=== PATIENT | male | born 1970 | race Caucasian/White ===

== ENCOUNTER 2017-09-14 15:01 | Emergency (ER) | payer OTHER ==
[2017-09-14 15:34] VITALS: BP 133/90; PULSE 74; TEMP 97; BMI 32.5
--- NOTE | 2017-09-14 16:27 | PDOC ---
Attending Attestation - Resident Resident Name: Randall oGff - ED Attending Attestation I have performed the following: I have examined & evaluated the patient, The case was reviewed & discussed with the resident, I agree w/resident's findings & plan - HPI HPI: 09/14/17 16:23 47y/o M h/o severe MR with trach/PEG, bedbound/wheelchair presents from facility after he slipped out of his wheelchair, unwitnessed. No noted trauma, brought for evaluation. Per aide, pt is at baseline. - Physicial Exam PE: 09/14/17 16:25 VSS alert lying in stretcher, baseline nonverbal, trach, peg on full trauma review, no abrasion/ecchymosis/laceration no acute bony deformity or ttp baseline contractures - Medical Decision Making 09/14/17 16:26 47-year-old male profound MR, bedbound/wheelchair-bound presents after presumed slip and fall from wheelchair, no obvious injuries noted by aides, full trauma exam is unremarkable. Given limited history and exam, we'll perform screening trauma protocol CT of the head and C-spine Chest x-ray, pelvis x-ray Hemodynamically stable, can be discharged back to facility with aide if imaging negative.
--- NOTE | 2017-09-14 17:12 | PDOC ---
History of Present Illness - General Chief Complaint: Injury Stated Complaint: INJURY Time Seen by Provider: 09/14/17 15:23 History Source: Legal Guardian(s) - History of Present Illness Initial Comments: 09/14/17 17:05 Patient is a 47M with history of unknown genetic disorder, s/p trach and peg, non-verbal, here today after falling out of a wheelchair. His aide states that he did not have his seatbelt on his wheelchair and likely slid forward out of his wheelchair because the chair was tilted forward. Aide states that he could not have been down more than a few minutes. Patient is non-verbal at baseline, and does not have any way to communicate that he is having pain. Past History - Past Medical History Allergies/Adverse Reactions: Allergies Allergy/AdvReac Type Severity Reaction Status Date / Time Sulfa (Sulfonamide AdvReac Verified 01/29/16 13:03 Antibiotics) Home Medications: Ambulatory Orders Albuterol 0.083% Nebulizer Mami [Ventolin 0.083% Nebulizer Soln -] 1 neb NEB QID PRN 01/29/16 Baclofen 10 mg GT TID 01/29/16 Calcium Carbonate/Vitamin D3 [Oystercal-D 500 mg-400 Unit Tb] 1 each GT DAILY Cholecalciferol (Vitamin D3) [Vitamin D3] 2,000 unit GT DAILY 01/29/16 Clotrimazole [Lotrimin -] 1 applic TP BID 01/29/16 Lubiprostone [Amitiza] 24 mcg GT BID 01/29/16 Mag Carb/Aluminum Hydrox/Algin [Riginic Suspension] 360 ml GT TID 01/29/16 Magnesium Hydrox 2400MG/30Ml [Milk of Magnesia -] 30 ml GT Q8H 01/29/16 Sennosides [Senna] 17.6 mg GT DAILY 01/29/16 Simethicone 40 mg GT TID 01/29/16 levoFLOXacin [Levaquin] 750 mg PO DAILY #5 tab 02/11/16 predniSONE [Deltasone -] 10 mg GT DAILY #7 tablet 02/11/16 COPD: Yes (tracheostomy / sleep apnea) Disorders: Yes (gastrostomy) Psychiatric Problems: Yes (mental retardation) Seizures: Yes (EPILEPSY.) - Surgical History Abdominal Surgery: Yes (gastrostomy) Orthopedic Surgery: Yes (spinal fusion/hx osteoperosis left femur fx) - Suicide/Smoking/Psychosocial Hx Smoking History: Never smoked Have you smoked in the past 12 months: No Information on smoking cessation initiated: No Hx Alcohol Use: No Drug/Substance Use Hx: No Substance Use Type: None Hx Substance Use Treatment: No Review of Systems - Review of Systems Able to Perform ROS?: No (2/2 clinical condition) *Physical Exam - Vital Signs Last Vital Signs Temp Pulse Resp BP Pulse Ox 97 F L 74 20 133/90 96 09/14/17 15:21 09/14/17 15:21 09/14/17 15:21 09/14/17 15:21 09/14/17 15:21 - Physical Exam Comments: 09/14/17 17:12 GENERAL: Awake, alert, and fully oriented, in no acute distress BACK: No signs of trauma, nontender. HEAD: No signs of trauma, microcephalic EYES: PERRLA, EOMI, sclera anicteric, conjunctiva clear ENT: Auricles normal inspection, hearing grossly normal, nares patent, oropharynx clear without exudates. Moist mucosa NECK: Normal ROM, supple, no lymphadenopathy, JVD, or masses, no midline tenderness LUNGS: No distress, clear to auscultation bilaterally HEART: Regular rate and rhythm, normal S1 and S2, no murmurs, rubs or gallops, peripheral pulses normal and equal bilaterally. ABDOMEN: Soft, nontender, normoactive bowel sounds. No guarding, no rebound. No masses EXTREMITIES: No signs of trauma, chronic contractures NEUROLOGICAL: Cranial nerves II through XII grossly intact. No focal sensorimotor deficits SKIN: Warm, Dry, normal turgor, no rashes or lesions noted. ED Treatment Course - RADIOLOGY Radiology Studies Ordered: Category Date Time Status CERVICAL SPINE CT W/O CONTR [CT] Stat CT Scan 09/14/17 15:[address] WITHOUT CONTRAST [CT] Stat CT Scan 09/14/17 15:33 Ordered CXRPORT [CHEST X-RAY PORTABLE*] [RAD] Stat Radiology 09/14/17 15:33 Taken PELVIS [RAD] Stat Radiology 09/14/17 15:33 Taken Medical Decision Making - Medical Decision Making 09/14/17 17:14 Patient is 47M with unknown genetic disorder, nonverbal here today complaining of a fall. No signs of trauma, but patient unable to advocate for self. Will do CXR, pelvic x-rays, cervical spine ct and head ct. Likely discharge home. 09/14/17 18:17 CT head and c-spine show no acute changes. CXR and pelvic x-ray shows no acute fracture. No pneumonia or acute process seen. Pelvic x-ray shows moderate stool burden. Will discharge patient back to his facility. *DC/Admit/Observation/Transfer Diagnosis at time of Disposition: Fall - Discharge Dispostion Disposition: HOME Condition at time of disposition: Good Decision to Admit order: No - Referrals Referrals: Devyn Sloan Jr [Primary Care Provider] - - Patient Instructions Printed Discharge Instructions: How to Prevent Falls Additional Instructions: Please return if he has any new, worsening or concerning symptoms. Please follow up with your primary care doctor in the next week. - Post Discharge Activity
== END 2017-09-14 19:12 | disposition home or self-care (01) ==
LOC: JER 15:01
DX: Z04.8 Encounter for examination and observation for other specified reasons (principal); W05.0XXA Fall from non-moving wheelchair, initial encounter; Y93.89 Activity, other specified; Y92.118 Other place in children's home and orphanage as the place of occurrence of the external cause; F72 Severe intellectual disabilities; Z93.0 Tracheostomy status; Z93.1 Gastrostomy status; Z99.3 Dependence on wheelchair; Z74.01 Bed confinement status
CPT/HCPCS: 70450-TC; 71045-TC-FY; 72125-TC; 72170-TC-FY; 99281-25

== ENCOUNTER 2018-03-03 18:03 | Inpatient (IN) | payer OTHER ==
--- NOTE | 2018-03-03 18:10 | PDOC ---
Rapid Medical Evaluation Chief Complaint: Rectal Bleed Time Seen by Provider: 03/03/18 18:06 Medical Evaluation: Allergies Allergy/AdvReac Type Severity Reaction Status Date / Time Sulfa (Sulfonamide AdvReac Verified 01/29/16 13:03 Antibiotics) 03/03/18 18:07 Pt presents to the ED for sudden onset of guiac positive stool. From [facility] Exam: Trach'ed, wheelchair dependent Orders: Labs Pt to proceed to the ED for further evaluation Discharge Disposition - Diagnosis Rectal bleeding - Referrals - Patient Instructions - Post Discharge Activity
[2018-03-03] MEDS ORDERED: PIPERACILLIN/TAZOB 4.5 GM 4.5 GM in DEXTROSE 5%-WATER 100 ML IVPB ONE (19:49)
[2018-03-03] MEDS ORDERED: VANCOMYCIN 1 GRAM (PRE-DOCKED) 1,000 MG/250 ML BAG IVPB ONE (19:49)
--- NOTE | 2018-03-03 19:49 | PDOC ---
Attending Attestation - Resident Resident Name: Humberto La - ED Attending Attestation I have performed the following: I have examined & evaluated the patient, The case was reviewed & discussed with the resident, I agree w/resident's findings & plan, Exceptions are as noted - Critical Care Time Total Critical Care Time: 35 Critical Care Statement: The care of this patient involved high complexity decision making to prevent further life threatening deterioration of the patient 's condition and/or to evaluate & treat vital organ system(s) failure or risk of failure. - Medical Decision Making 03/03/18 19:45 I, Dr. Destiney Marroquin, DO, attest that this document has been prepared under my direction and personally reviewed by me in its entirety. I further attest, that it accurately reflects all work, treatment, procedures and medical decision -making performed by me. 03/03/18 19:45 a/p: 47yo male from [place] with chronic trach and peg with low temperature -91rectally in the ED -yellow sputum from the trach -pt unable to provide any hx -rectal fissure -will send labs, cultures, broad spectrum abx, ivf hyration -cxr, ekg 03/03/18 22:46 pt with rectal fissure and stool occult + pt with hypothermia pt with an episode of hypotension - requiring ivf hydration bolus broad spectrum abx started resident discussed the case with the ICU resident and a consult was placed to Dr. Coto resident discussed the case with [facility] who accepts pt to service <Destiney Marroquin - Last Filed: 03/03/18 22:48> - HPI HPI: 03/03/18 22:52 This is a 47 year old male with a pmhx of cerebral palsy, non verbal with chronic trach and chronic peg, who presents today from [facility] with blood in his stool and hypothermia. - Physicial Exam PE: GENERAL: Awake but nonverbal. Wheelchair bound, in no acute distress HEAD: No signs of trauma EYES: PERRLA, EOMI, sclera anicteric, conjunctiva clear ENT: +Dry mucous membranes. Auricles normal inspection, hearing grossly normal, nares patent, oropharynx clear without exudates. NECK: +Trach in place with yellow sputum in and around it. Normal ROM, supple, no lymphadenopathy, JVD, or masses LUNGS: +Coarse lung sounds on the right. No wheezes. HEART: Regular rate and rhythm, normal S1 and S2, no murmurs, rubs or gallops ABDOMEN: Soft with peg tube in the RUQ. Hypoactive bowel sounds. No guarding, no rebound. No masses. RECTAL: +Brown stool fissure at the 6:00 position. +Rectal temp 91.No active bleeding. EXTREMITIES: +Upper extremities contracted. +Lower extremities extended. No edema. No clubbing or cyanosis. No cords, erythema, or tenderness. NEUROLOGICAL: +History of cerebral palsy. Cranial nerves II through XII grossly intact. SKIN: Warm, Dry, normal turgor, no rashes or lesions noted. 03/03/18 19:57 <Nancy Tejada - Last Filed: 03/03/18 22:53> Heart Score/ECG Review - ECG Intrepretation Comment:: 03/03/18 20:37 sinus nico at 56, nl axis, nl interval, no acute st/t wave findings <Destiney Marroquin - Last Filed: 03/03/18 22:48>
--- NOTE | 2018-03-03 19:58 | PDOC ---
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 The patient is nonverbal and no history can be obtained from the patient. Per the aide, he was in his normal state of health today. Throughout the day, his aides noted that he had a positive guaic. He was also noted to have a temperature of 93F. The patient cannot verbalize any complaints but his aide denies any cough or recent illness. Past History - Past Medical History Allergies/Adverse Reactions: Allergies Allergy/AdvReac Type Severity Reaction Status Date / Time Sulfa (Sulfonamide AdvReac Verified 03/04/18 01:01 Antibiotics) Home Medications: Ambulatory Orders Albuterol 0.083% Nebulizer Mami [Ventolin 0.083% Nebulizer Soln -] 1 neb NEB QID PRN 01/29/16 Baclofen 10 mg GT TID 01/29/16 Calcium Carbonate/Vitamin D3 [Oystercal-D 500 mg-400 Unit Tb] 1 each GT DAILY Cholecalciferol (Vitamin D3) [Vitamin D3] 2,000 unit GT DAILY 01/29/16 Clotrimazole [Lotrimin -] 1 applic TP BID 01/29/16 Lubiprostone [Amitiza] 24 mcg GT BID 01/29/16 Mag Carb/Aluminum Hydrox/Algin [Riginic Suspension] 360 ml GT TID 01/29/16 Magnesium Hydrox 2400MG/30Ml [Milk of Magnesia -] 30 ml GT Q8H 01/29/16 Sennosides [Senna] 17.6 mg GT DAILY 01/29/16 Simethicone 40 mg GT TID 01/29/16 levoFLOXacin [Levaquin] 750 mg PO DAILY #5 tab 02/11/16 predniSONE [Deltasone -] 10 mg GT DAILY #7 tablet 02/11/16 COPD: Yes (tracheostomy / sleep apnea) Disorders: Yes (gastrostomy) Psychiatric Problems: Yes (mental retardation) Seizures: Yes (EPILEPSY.) - Surgical History Abdominal Surgery: Yes (gastrostomy) Orthopedic Surgery: Yes (spinal fusion/hx osteoperosis left femur fx) - Immunization History Immunization Up to Date: Yes - Suicide/Smoking/Psychosocial Hx Smoking History: Never smoked Have you smoked in the past 12 months: No Hx Alcohol Use: No Drug/Substance Use Hx: No Substance Use Type: None Hx Substance Use Treatment: No Review of Systems - Review of Systems Able to Perform ROS?: No (nonverbal) Is the patient limited [place] proficient: No *Physical Exam - Vital Signs Last Vital Signs Temp Pulse Resp BP Pulse Ox 98.5 F 59 L 16 109/51 L 98 03/03/18 18:07 03/03/18 18:07 03/03/18 18:07 03/03/18 18:07 03/03/18 18:07 - Physical Exam Comments: 03/04/18 00:39 GENERAL: Well developed, well nourished. Nonverbal, contracted throughout body. No acute distress. HEENT: Normocephalic, atraumatic. Hearing grossly normal. Moist mucous membranes. PERRLA, EOMI. No conjunctival pallor. Sclera are non-icteric. NECK: Supple. Trached with white sputum at end of trach. CARDIOVASCULAR: Regular rate and rhythm. No murmurs, rubs, or gallops. PULMONARY: No evidence of respiratory distress. L sided coarse breath sounds. ABDOMINAL: Soft. Non-tender. Non-distended. No rebound or guarding. RECTAL: Anal fissure noted, no grossly bloody stool noted on rectal exam. Rectal tone normal. MUSCULOSKELETAL: Contracted throughout pt's body. EXTREMITIES: No cyanosis. No clubbing. No edema. No calf tenderness or swelling. SKIN: Warm and dry. Normal capillary refill. No rashes. No jaundice. NEUROLOGICAL: Cranial nerves 2-12 grossly intact. Nonverbal. PSYCHIATRIC: Noncooperative. Sporadic eye contact. Heart Score/ECG Review #1 ECG reviewed & interpreted by me at: 20:25 General ECG Interpretation: Normal Intervals Compared to previous ECG there are: Changes noted 03/04/18 01:38 NSR vent rate 60 MI 180 QRS 82 QTc 436 No STD or MARGY T wave flattening noted in anteroseptal leads; changed from prior in 2016 ED Treatment Course - LABORATORY CBC & Chemistry Diagram: 03/03/18 19:47 03/03/18 19:47 - RADIOLOGY Radiology Studies Ordered: Category Date Time Status CHEST X-RAY PORTABLE* [RAD] Stat Radiology 03/03/18 19:40 Ordered Medical Decision Making - Medical Decision Making 03/03/18 19:57 The patient is a 47M with a PMH of severe MR who presents to the ER hypothermic with a positive guaic from [facility] [place]. Stool occult "trace" in our facility. Likely 2/2 anal fissure noted on PE. However, pt is hypothermic to 91F on arrival. The patient was initially normoxic and normotensive. However, during our initial assessment, the patient became bradycardic and hypotensive. Septic protocol is being followed. Pt given resuscitative fluids and BP returned to normal. However, bradycardia persisted to low 40's. Pt placed on monitor and abx started. Will monitor closely. 03/04/18 01:45 CBC shows low WBC. Normal Hgb. CMP shows no change from prior. Trop negative. Lactate negative. CXR difficult to read due to arm placement over anterior L chest. Due to pt's persistent bradycardia and hypothermia, it is a presumed infection. Urine negative. Case endorsed to Dr. East for admission under Dr. Perry. *DC/Admit/Observation/Transfer Diagnosis at time of Disposition: Rectal bleeding - Referrals - Patient Instructions - Post Discharge Activity
[2018-03-03 19:59] LABS: VENOUS PC02 59.4 mmHg (38-52); VENOUS PH 7.39 (7.32-7.42); VENOUS PO2 50.9 mmHg (28-48)
[2018-03-03 20:02] LABS: BASO % 0.5 % (0-2.0); EOS % 3.1 % (0-4.5); HEMATOCRIT 37.6 % (35.4-49); HEMOGLOBIN 12.6 GM/dL (11.7-16.9); LYMPH % 36.8 % (8-40); MCH 31.9 pg (25.7-33.7); MCHC 33.6 g/dl (32.0-35.9); MEAN CELL VOLUME 94.8 fl (80-96); MEAN PLT VOLUME 10.8 fl (7.5-11.1); MONO % 7.2 % (3.8-10.2); NEUT % 52.4 % (42.8-82.8); PLATELET COUNT 144 K/MM3 (134-434); RBC 3.97 M/mm3 (4.00-5.60); RDW 17.1 % (11.9-15.9); WHITE BLOOD COUNT 3.4 K/mm3 (4.0-10.0)
[2018-03-03 20:32] LABS: ALBUMIN 3.1 g/dl (3.4-5.0); ALK PHOS 195 U/L (45-117); ANION GAP 6 MMOL/L (8-16); BILIRUBIN,TOTAL 0.3 mg/dL (0.2-1); BLOOD UREA NITROGEN 24 mg/dL (7-18); CALCIUM 8.9 mg/dL (8.5-10.1); CHLORIDE 99 mmol/L (98-107); CO2 36 mmol/L (21-32); CREATININE 0.5 mg/dL (0.55-1.3); GLUCOSE,RANDOM 55 mg/dL (74-106); POTASSIUM 3.8 mmol/L (3.5-5.1); SGOT/AST 76 U/L (15-37); SGPT/ALT 90 U/L (13-61); SODIUM 140 mmol/L (136-145)
[2018-03-03 20:37] LABS: PROTHROMBIN TIME (PATIENT) 11.8 SEC (9.7-13.0)
[2018-03-03] MEDS ORDERED: SODIUM CHLORIDE 0.9% 1000 ML INFUS.BAG IV ONE ×2 (20:37→21:19)
[2018-03-03] MEDS ORDERED: PIPERACILLIN/TAZOB 4.5 GM 4.5 GM/100 ML BAG IVPB ONE (22:16)
[2018-03-03] MEDS ORDERED: PANTOPRAZOLE SODIUM 40 MG VIAL IVPUSH ONE (23:24)
--- NOTE | 2018-03-03 23:41 | HP ---
CHIEF COMPLAINT: rectal blood and hypothermia PCP: Dr Sloan ([facility]) HISTORY OF PRESENT ILLNESS: Pt is a 47 with a PMHx of profound MR, microcephalus , congenital quadriplegia, seizure disorder, optic n atrophy, encephalic cyst, kyphoscoliosis, sleep apnea, osteoporosis, dermatitis, recurrent tracheitis, undescended testicle, hypothermia, bilateral renal stones,with trach/PEG, bedbound/wheelchair, nonverbal, brought in from [place] for hypothermia and BRBPR this am. The am nurse at [facility] reported that the patient had normal well formed stool this am then BRBPR was noted. At [facility], the stool was tested and found positive for occult blood. Pt usually has one well formed bowel movement daily. No recent diarrhea, but intermittent semi-formed stools. No foul smelling stools, last antibiotic use was 3 months ago, last admission was 6 months ago for respiratory infection at [facility]. Pt had a hx of sigmoidoscopy with chronic constipation and disimpaction ( 2014) by Dr Garrison , no hx of PUD or previous GI bleeds No recent history of nasal congestion or fevers, (patient's Aide by the bedside only provided paper documentation and reports patient does not use home oxygen, is trached, opens eyes when awake at baseline but has contracted limbs he cannot fully extend. Aide reported that while in the ED, she noted diaper was stained with blood. 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 Pt is up to date on immunizations. When I saw the pt in the Ed, the nasal cannular was off him, but patient was sating at 100% (pt on vent collar), although aide said she was told he was initially hypoxic on presentation, requiring nasal cannular. Patient was reported to have come in with relatively stable vitals 98.5 which dropped to per ED-91 (rectal), BP from 109/51-80/50 (in ED), HR- 59 initally said to have dropped to 40s. Manual vitals repeated by ny-HR-56 (pt runs in 50s at baseline), 100/60, rectal temp-94.1, and was sating up to 100% Pt appeared to be at his baseline vitals except for the leucopenia ER course was notable for: (1) CXR, poor film -L hand occluding chest film) (2) traciar katygger,Vanc/zosyn (3) 2L-NS, vanc/zosyn (for presumed sepsis with hypothermia, hypotension, leucopenia ane bradycardia) Recent Travel: PAST MEDICAL HISTORY: PAST SURGICAL HISTORY: Social History: Smoking: Alcohol: Drugs: Family History: Allergies Sulfa (Sulfonamide Antibiotics) Adverse Reaction (Verified 01/29/16 13:03) HOME MEDICATIONS: Home Medications Medication Instructions Recorded Albuterol 0.083% Nebulizer Mami 1 neb NEB QID PRN 01/29/16 [Ventolin 0.083% Nebulizer Soln -] Baclofen 10 mg GT TID 01/29/16 Calcium Carbonate/Vitamin D3 1 each GT DAILY 01/29/16 [Oystercal-D 500 mg-400 Unit Tb] Cholecalciferol (Vitamin D3) 2,000 unit GT DAILY 01/29/16 [Vitamin D3] Clotrimazole [Lotrimin -] 1 applic TP BID 01/29/16 Lubiprostone [Amitiza] 24 mcg GT BID 01/29/16 Mag Carb/Aluminum Hydrox/Algin 360 ml GT TID 01/29/16 [Riginic Suspension] Magnesium Hydrox 2400MG/30Ml [Milk 30 ml GT Q8H 01/29/16 of Magnesia -] Sennosides [Senna] 17.6 mg GT DAILY 01/29/16 Simethicone 40 mg GT TID 01/29/16 levoFLOXacin [Levaquin] 750 mg PO DAILY #5 tab 02/11/16 predniSONE [Deltasone -] 10 mg GT DAILY #7 tablet 02/11/16 REVIEW OF SYSTEMS No other symptoms per [facility] staff PHYSICAL EXAMINATION Vital Signs - 24 hr 03/03/18 18:07 Temperature 98.5 F Pulse Rate 59 L Respiratory 16 Rate Blood Pressure 109/51 L O2 Sat by Pulse 98 Oximetry (%) GENERAL: Somnolent, opens eyes to pain, non verbal at baseline HEAD: Normal with no signs of trauma. EYES: Pupils equal, round and reactive to light, EARS, NOSE, THROAT: Nasal cannular in place.Dry mucous membranes. NECK: Tracheostomy collar in place with humidified air LUNGS:Rhonchi HEART: Regular rate and rhythm, normal S1 and S2 without murmur, rub or gallop. ABDOMEN: Mildly Distended, firm,reduced bowel sounds, palpable liver TIFFANY: Initially, stool smeared rectum, with pasty-liquidy stool. Enlarged firm prostate withfirm to hard stool in anal verge. Gloved finger with brownish stool stained with bright red blood. Anal fissure seen at 6 o'clock oozing blood : Undescended R testicle, enlarged L testicle, firm, non erythematous, no blood or pus from urethral meatus, hamilton draining clear urine MUSCULOSKELETAL: Normal range of motion at all joints. No bony deformities or tenderness. No CVA tenderness. UPPER EXTREMITIES: Contracted and, abducted and flexed at elbow bilaterally LOWER EXTREMITIES: 2+ pulses, warm, well-perfused.Contracted. No peripheral edema. NEUROLOGICAL: Hypertonia with limb contraction PSYCHIATRIC: Unable to assess Laboratory Results - last 24 hr 03/03/18 03/03/18 03/03/18 19:47 19:47 19:47 WBC 3.4 L RBC 3.97 L Hgb 12.6 Hct 37.6 MCV 94.8 MCH 31.9 MCHC 33.6 RDW 17.1 H Plt Count 144 D MPV 10.8 D Absolute Neuts (auto) 1.8 Neutrophils % 52.4 D Lymphocytes % 36.8 Monocytes % 7.2 Eosinophils % 3.1 Basophils % 0.5 Nucleated RBC % 0 PT with INR 11.80 INR 1.00 PTT (Actin FS) VBG pH POC VBG pCO2 POC VBG pO2 Mixed VBG HCO3 Sodium 140 Potassium 3.8 Chloride 99 Carbon Dioxide 36 H Anion Gap 6 L BUN 24 H Creatinine 0.5 L Creat Clearance w eGFR > 60 Random Glucose 55 L Lactic Acid Calcium 8.9 Total Bilirubin 0.3 AST 76 H ALT 90 H Alkaline Phosphatase 195 H Troponin I < 0.02 Total Protein 8.0 Albumin 3.1 L Stool Occult Blood Blood Type Antibody Screen 03/03/18 03/03/18 03/03/18 19:47 19:47 19:47 WBC RBC Hgb Hct MCV MCH MCHC RDW Plt Count MPV Absolute Neuts (auto) Neutrophils % Lymphocytes % Monocytes % Eosinophils % Basophils % Nucleated RBC % PT with INR INR PTT (Actin FS) 41.4 H VBG pH 7.39 POC VBG pCO2 59.4 H POC VBG pO2 50.9 H Mixed VBG HCO3 35.3 H Sodium Potassium Chloride Carbon Dioxide Anion Gap BUN Creatinine Creat Clearance w eGFR Random Glucose Lactic Acid Calcium Total Bilirubin AST ALT Alkaline Phosphatase Troponin I Total Protein Albumin Stool Occult Blood Blood Type A POSITIVE Antibody Screen Negative 03/03/18 03/03/18 03/03/18 19:47 19:49 21:50 WBC RBC Hgb Hct MCV MCH MCHC RDW Plt Count MPV Absolute Neuts (auto) Neutrophils % Lymphocytes % Monocytes % Eosinophils % Basophils % Nucleated RBC % PT with INR INR PTT (Actin FS) VBG pH POC VBG pCO2 POC VBG pO2 Mixed VBG HCO3 Sodium Potassium Chloride Carbon Dioxide Anion Gap BUN Creatinine Creat Clearance w eGFR Random Glucose Lactic Acid 0.7 Calcium Total Bilirubin AST ALT Alkaline Phosphatase Troponin I Cancelled Total Protein Albumin Stool Occult Blood Trace Blood Type Antibody Screen Ambulatory Orders Albuterol 0.083% Nebulizer Mami [Ventolin 0.083% Nebulizer Soln -] 1 neb NEB QID PRN 01/29/16 Baclofen 10 mg GT TID 01/29/16 Calcium Carbonate/Vitamin D3 [Oystercal-D 500 mg-400 Unit Tb] 2 tab GT HS Cholecalciferol (Vitamin D3) [Vitamin D3] 2,000 unit GT HS 01/29/16 Lubiprostone [Amitiza] 24 mcg GT BID 01/29/16 Mag Carb/Aluminum Hydrox/Algin [Riginic Suspension] 5 ml GT TID 01/29/16 Magnesium Hydrox 2400MG/30Ml [Milk of Magnesia -] 30 ml GT HS 01/29/16 Sennosides [Senna] 10 ml GT DAILY 01/29/16 Simethicone 40 mg GT TID 01/29/16 Bisacodyl Suppository [Dulcolax Suppository -] 10 mg RC ASDIR PRN 03/04/18 Waterproof-3/Dha/Epa/Fish Oil [Fish Oil 1,600 mg/5 ml Liquid] 1,000 mg GT BID Scopolamine [Transderm-Scop] 1 patch.72h TD ASDIR 03/04/18 Current Medications Albuterol Sulfate (Ventolin 0.083% Nebulizer Soln -) 1 amp NEB Q6H PRN PRN Reason: ASTHMA Pantoprazole Sodium 80 mg/ (Sodium Chloride) 100 mls @ 10 mls/hr IVPB Q10H TARIQ Last Admin: 03/04/18 03:00 Dose: 10 mls/hr Metronidazole (Flagyl 500mg Premixed Ivpb -) 500 mg in 100 mls @ 100 mls/hr IVPB Q8H-IV TARIQ Last Admin: 03/04/18 06:03 Dose: 100 mls/hr Levofloxacin (Levaquin 750 Mg Premixed Ivpb -) 750 mg in 150 mls @ 100 mls/hr IVPB DAILY TARIQ; Protocol Last Admin: 03/04/18 07:00 Dose: 100 mls/hr Dextrose/Lactated Ringer's (D5-Lr -) 1,000 mls @ 100 mls/hr IV ASDIR TARIQ Last Admin: 03/04/18 06:04 Dose: 100 mls/hr Lidocaine HCl (Xylocaine 2% Jelly) 1 applic TP Q4H PRN PRN Reason: PAIN FROM ANAL FISSURE Scopolamine HBr (Transderm-Scop -) 1 patch TD Q3D@1000 TARIQ CTAP w/o, with GT contrast and CT chest 03/04: Addendum: The previously described right inguinal hernia May BE herniating part of the decompressed/empty urinary bladder and not a thickened small bowel loop as previously described. There is fluid in the left inguinal hernia without gross evidence of a herniating bowel loop. Correlate clinically for further evaluation. ORIGINAL REPORT Rule out colitis. Distention. Rule out sepsis. CT scan of the chest, abdomen and pelvis with oral and without intravenous contrast Coronal and sagittal reformatted images were obtained. Compared to prior chest x-ray dated 03/03/[address] scan of the abdomen pelvis dated 2014 In the chest, there is an approximately 1.6 x 1 cm spiculated nodular lesion in the superior segment of the right upper lobe. There is also focal opacity in the right lower lobe, medially measuring approximately 2.2 x 1.5 cm in transverse and AP dimension on the axial images and 2.4 cm in the craniocaudal images with an irregular, slightly spiculated margin. There is mild bilateral interstitial thickening. Mild atelectatic changes in the dependent portion of the left lower lobe. No pneumothorax or pleural effusion identified, bilaterally. Included lower neck appears unremarkable. A tracheostomy tube is present with its tip in satisfactory position. The heart is within normal limits in size. No gross enlarged mediastinal lymph nodes are identified on this noncontrast exam. The liana are slightly prominent. There is significant dextroscoliosis at the thoracolumbar junction with Seay rods extending from the upper thoracic area down to the lower lumbar spine, L5 level. In the abdomen and pelvis, there is a large amount of fecal residue in the entire colon mainly in the distal sigmoid colon down to the rectosigmoid junction where it measures approximately 10 cm in width consistent with impaction. There is suggestion of thickening of the rectosigmoid junction wall. A Hamilton catheter is present within a decompressed urinary bladder. Colon is interposed between the liver and anterior abdominal wall as well as the right hemidiaphragm. Beam hardening artifacts from dense oral contrast seen in the stomach and proximal small bowel loops are limiting evaluation of the upper abdomen. The liver and spleen appear grossly unremarkable. Gallbladder is adequately distended without gross intraluminal stones. The stomach is not distended and hence its wall cannot be evaluated. There is no evidence of small bowel obstruction. Normal-appearing right adrenal gland. Left adrenal gland was not seen. Faint tiny hyperdensities in the right kidney that are nonspecific and may represent tiny nonobstructing stones. The left kidney appears unremarkable. There is no evidence of hydroureteronephrosis, bilaterally. Nonvisualization of the appendix. No free air or free fluid in the abdomen and pelvis There is bilateral inguinal hernia with herniating bowel loops. Thickening of a small bowel loop extending into the right inguinal hernia wall. Significant dextroscoliosis of the lumbar spine with Seay rods again seen down to L5 level. 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 Nodular opacities in the right lower lobe with spiculated margin, as described above. Although the appearance are suggestive of metastatic lesions, they may represent focal infiltrates. Follow- up chest x-ray in one to 2 weeks is recommended to assess for change and complete clearing. Prominent liana on this noncontrast exam. Impaction with thickening of the rectosigmoid junction wall. Bilateral inguinal hernias with the thickening of a small bowel loop in the right lower pelvis extending into the right hernia without evidence of small bowel obstruction. Correlate clinically for further evaluation. CVL dextroscoliosis of the lower thoracic and lumbar spine with Seay rods extending from the upper thoracic spine down to L5 level. A preliminary report was forwarded by the [facility] service, [employer]. ASSESSMENT/PLAN: Pt is a 47 with a PMHx of profound MR, microcephalus, congenital quadriplegia, seizure disorder, optic n atrophy, encephalic cyst, kyphoscoliosis, sleep apnea , osteoporosis, dermatitis, recurrent tracheitis, undescended testicle, hypothermia, with trach/PEG, bedbound/wheelchair, nonverbal, brought in from [facility] for hypothermia and BRBPR this am. Rectal bleed Pt hemodynamically stable on presentation, no tachycardia Likely secondary to anal fissure, with impacted stool, hx of prior bleeds Brown Stool noted then red blood CBC Q6H, one stat Protonix drip Tele NPO LR@100 2 wide bore iv line Previous sigmoidoscopy done with disimpaction but no retroflexion done in past (no documented colonoscopies in chart) Gi- Dr Garrison- saw in past Fobt trace then positive Repeat CBC trended from 12-10s- could be dilution (received 2L) and patient lives in 10s at baseline with all cell lines appearing dilute Cont to trend CBC patient may benefit from a scope Tube feeds held Multivit supplements held for now Type and screen Hold GT antacids Consider transfusion if hemodyn unstable Monitor Anemia Seeming drop of hgb from about 12 to 10, could be dilutional vs, lower GI bleed from fissure No previous UGI bleed documented Pt with hgb usu in 10s No brisk bleeds noted on rectal exam Monitor CBC Likely stercoral colitis Seen on prelim CT report pending final report With fecal stasis and impacted stool Flagyl 500 iv tid Levoflox 750mg iv daily Pt may benefit from disimpaction, held off manual disimpaction in light of anal fissure Chronic Constipation with Fecal impaction Pt is on home simethicone, amitizia, suppositories Would require disimpaction Avoid suppositories at this time, Had sigmoidoscopy and disimpaction in past Held off stool softeners via GT at this time in light of active bleed as pt may require procedure GI consult Cont iv hydration- LR switched to D5LR@100 (Previous ECH without evidence of CHF), monitor for overload Anal fissure secondary to chronic constipation Hx of sigmoidoscopy with disimpaction in past Hold Laxatives via GT for now pending GI decision for procedure Lidocaine 2% topical For likely nifedipine to help dilate vessels pending CTAP read R/o obstruction CTAP-see results above Loose stool Likely as overflow in setting of chronic constipation' Last antibiotic use end of january, R/o c diff Follow C diff Ag and toxin Lactoferrin Hypoglycemia Pt not documented DM In setting of held feeds s/p GI bleed Initally in 50s, repeat BGM above 60 Switch fluid from LR to D5LR Q6H BGM [id number] Chronic hypoxic respiratory failure R/o acute on chronic hypoxic respiratory failure Pt with trach collar at [facility], not oxygen dependent at baseline Pt at risk for tracheobronchitis, with repeated infections Has increased risk for aspiration, currently sating in 97-100 Repeated tracheitis in past, risk for colonization CXR- unable to visualize lung thrasher clearly because of body habitus CT chest w/o ordered Follow Sputum culture flu swab Urinary Ags Cont nebs ABGs- Cont nebulizer Cont humidified air/oxygen as needed to maintain sats >90% Trach dependence Local trach care with NS as needed and stoma and collar care Frequent suctioning as needed Follow Sputum secretions Spiculated lung mass with Lung nodule Seen on CT chest, for follow up CXR in 2 weeks as recommended Pulm consult Follow Urinary antigen, at increased risk for pneumonias with mass and risk for obstruction Flu swab- neg recurrent tracheitis Pt with trach collar in ID Grew ESBL Klebsiella in past Follow sputum culture, urinary antigens Pt not septic at this time Maintain sats >90% Cont TP scopolamine Normally followed by Dr Uriostegui, consider consult, if spitum cultures positive , currently on emperical coverage with levoflox and metronidazole for likely colitis Hypothermia Pt is hypothermic at baseline . Temp at [facility] prior to presentation today-93.4 Tmax for pt at baseline usually up to 95 per staff at [facility] with warm blankets Cont dianne hugger Repeat vitals Leukopenia Could be in setting of colitis, pt does not appear septic at this time HIV/HCV ordered Could also be in this setting of likely malignancy Consider hemonc consult if still trending down Elevated TSH Previously documented TSH -4.36, Free T4-1.4, -04/07/17 (paper chart), in setting of bradycardia and hypothermia, Follow T3, FT4 May require follow up for accurate diagnosis Chronic metabolic alkalosis Pt not on diuretics, could be a part of congenital syndromes in setting of MR Urine Cl Urine Creatinine Elevated liver enzymes Chronic finding with more of alk phosphatase indicating a likely bone component May be bone related as pt is noted to have osteoporosis, CTAP unrevealing of hepatic pathology profound MR, microcephalus Pt completely dependent at baseline, [facility] aide by bedside Aspiration precautions Fall precautions Holding tube feeds at this time, pending GI evaluation congenital quadriplegia Contracted extremities Frequent turns seizure disorder Documented in patient's chart from [facility] (noted as childhood seizure post- meningitis) Pt noted not to have had another seizure since likely 06/1984 Has not been on anticonvulsives since 1994 Avoid seizure treshold lowering medications (pt placed on levaquin- monitor) optic n atrophy Pt opens eyes at baseline Is non verbal and so unable to monitor For out pt follow up encephalic cyst Pt appears at baseline at this time, no new focal neurol deficits noted Documented in physical chart, for outpt follow up kyphoscoliosis s/p surgeries Monitor sleep apnea- requiring tracheostomy ([facility]-10/01/1998) Sleep study done 1998 following episodes of cyanosis Per paper chart, pt did not tolerate CPAP and had been desating on the average to 70's and sometimes as low as 50s Cont to monitor, suction secretions PRN osteoporosis With previous fractures noted Could all be in the setting of this lung mass Pt on supplements, currently on hold pending decision for procedure dermatitis likely contact Pt recorded to have recurrent dermatitis Completed 7 days topical treatment recently with bactroban (Mar 03) Renal stones Non obstructing, noted on CTAP of 03/04/18 No evidence of hydronephrosis Has had stones in past- USS 10/02/15 (paper chart) s/p GT (Mar 1998 at [facility]) hx of dysphagia with flouroscopic evidence of aspiration per paper chart Local care Holding tube feeds at this time Holding supplements pending GI review undescended L testicle L fibrosed testicle- 08/23/14 genitalia us (paper chart), R testicle in high position then and small, now R testicle in scrotum and large Follows urology as outpatient Monitor bedbound/wheelchair, nonverbal In setting of profound MR Needs full asistance with ADLs FEN D5LR Monitor lytes replete as needed Hold tube feeds PPx Hold chemical anticoagulation in setting of GI bleed Cont protonix drip pending GI eval Dispo Tele Follow to see if pt will require a higher level of care Code status Mother's information to consent for procedures as needed in physical chart Full code Visit type - Emergency Visit Emergency Visit: Yes ED Registration Date: 03/04/18 Care time: The patient presented to the Emergency Department on the above date and was hospitalized for further evaluation of their emergent condition. - New Patient This patient is new to me today: Yes Date on this admission: 03/04/18 - Critical Care Critical Care patient: No
[2018-03-03 23:50] LABS: URINE APPEARANCE SLCLOUDY; URINE BILIRUBIN NEGATIVE (<2.0 mg/dL); URINE COLOR LTYELLOW; URINE GLUCOSE (UA) NEGATIVE (NEGATIVE); URINE KETONE NEGATIVE (NEGATIVE); URINE LEUK ESTERASE NEGATIVE (NEGATIVE); URINE NITRITE NEGATIVE (NEGATIVE); URINE PROTEIN NEGATIVE (NEGATIVE); URINE UROBILINOGEN NEGATIVE mg/dL (0.2-1.0)
--- NOTE | 2018-03-04 00:06 | CONSULT ---
Consultation: REQUESTING PROVIDER: CONSULT REQUEST: We have been asked to medically evaluate this patient for ( Possible GI bleed and hypothermia). HISTORY OF PRESENT ILLNESS: Non verbal at baseline, history obtained from aid and chart. Patient is a 47 year old male, resident of [facility], was sent to the ED for evaluation of blood in the stool. As per the aid at bed side, they noticed blood in the stool today and was also found to be hypothermic. At baseline, his temp is around 96-97 F. On arrival to the ED, he was hypothermic to 91 F rectally, after continuous dianne hugger, his temperature increased to 94 F rectally. He was also found to have anal fissure. Stool occult was positive. PAST MEDICAL HISTORY: Seizure, Microcephaly, profound mental retardation, Quadriplegia, kyphoscoliosis, sleep apnea, osteoporosis, dermatitis, recurrent tracheitis, undescended testicle, hypothermia, ALLERGIES: Sulfa PAST SURGICAL HISTORY: PEG, spinal fusion, tracheostomy SOCIAL HISTORY: Lives in [facility] Smoking/Alcohol/Drugs: No use REVIEW OF SYSTEMS: Non verbal at baseline. PHYSICAL EXAMINATION Vital Signs - 24 hr 03/03/18 18:07 Temperature 98.5 F Pulse Rate 59 L Respiratory 16 Rate Blood Pressure 109/51 L O2 Sat by Pulse 98 Oximetry (%) GENERAL: Patient lying in bed, non verbal at baseline, in no acute distress. HEAD: Microcephaly. EYES: No pallor or icterus. EARS, NOSE, THROAT: Dry mucous membranes. NECK: Trache collar on oxygen LUNGS: B/L decreased breath sounds .No wheezes. No accessory muscle use. HEART: Regular rate and rhythm, normal S1 and S2 without murmur. ABDOMEN: Soft, nontender, not distended, normoactive bowel sounds, no guarding, no rebound, no masses. No hepatomegaly or splenomegaly. MUSCULOSKELETAL: Normal range of motion at all joints. No bony deformities or tenderness. No CVA tenderness. UPPER EXTREMITIES: Contracted LOWER EXTREMITIES: contracted. No peripheral edema. NEUROLOGICAL: Non verbal at baseline. SKIN: Warm, dry, normal turgor, no rashes or lesions noted. Laboratory Results - last 24 hr 03/03/18 03/03/18 03/03/18 19:47 19:47 19:47 WBC 3.4 L RBC 3.97 L Hgb 12.6 Hct 37.6 MCV 94.8 MCH 31.9 MCHC 33.6 RDW 17.1 H Plt Count 144 D MPV 10.8 D Absolute Neuts (auto) 1.8 Neutrophils % 52.4 D Lymphocytes % 36.8 Monocytes % 7.2 Eosinophils % 3.1 Basophils % 0.5 Nucleated RBC % 0 PT with INR 11.80 INR 1.00 PTT (Actin FS) VBG pH POC VBG pCO2 POC VBG pO2 Mixed VBG HCO3 Sodium 140 Potassium 3.8 Chloride 99 Carbon Dioxide 36 H Anion Gap 6 L BUN 24 H Creatinine 0.5 L Creat Clearance w eGFR > 60 Random Glucose 55 L Lactic Acid Calcium 8.9 Total Bilirubin 0.3 AST 76 H ALT 90 H Alkaline Phosphatase 195 H Troponin I < 0.02 Total Protein 8.0 Albumin 3.1 L Stool Occult Blood Blood Type Antibody Screen 03/03/18 03/03/18 03/03/18 19:47 19:47 19:47 WBC RBC Hgb Hct MCV MCH MCHC RDW Plt Count MPV Absolute Neuts (auto) Neutrophils % Lymphocytes % Monocytes % Eosinophils % Basophils % Nucleated RBC % PT with INR INR PTT (Actin FS) 41.4 H VBG pH 7.39 POC VBG pCO2 59.4 H POC VBG pO2 50.9 H Mixed VBG HCO3 35.3 H Sodium Potassium Chloride Carbon Dioxide Anion Gap BUN Creatinine Creat Clearance w eGFR Random Glucose Lactic Acid Calcium Total Bilirubin AST ALT Alkaline Phosphatase Troponin I Total Protein Albumin Stool Occult Blood Blood Type A POSITIVE Antibody Screen Negative 03/03/18 03/03/18 03/03/18 19:47 19:49 21:50 WBC RBC Hgb Hct MCV MCH MCHC RDW Plt Count MPV Absolute Neuts (auto) Neutrophils % Lymphocytes % Monocytes % Eosinophils % Basophils % Nucleated RBC % PT with INR INR PTT (Actin FS) VBG pH POC VBG pCO2 POC VBG pO2 Mixed VBG HCO3 Sodium Potassium Chloride Carbon Dioxide Anion Gap BUN Creatinine Creat Clearance w eGFR Random Glucose Lactic Acid 0.7 Calcium Total Bilirubin AST ALT Alkaline Phosphatase Troponin I Cancelled Total Protein Albumin Stool Occult Blood Trace Blood Type Antibody Screen Active Medications Generic Name Dose Route Start Last Admin Trade Name Freq PRN Reason Stop Dose Admin Pantoprazole Sodium 80 mg/ 100 mls @ 10 mls/hr 03/03/18 23:30 Sodium Chloride IVPB Q10H TARIQ 8 MG/HR Patient is a 47 year old male, resident of [facility], was sent to the ED for evaluation of blood in the stool and hypothermia. ASSESSMENT: Lower GI bleed: likely secondary to anal fissure Hypothermia: Improving with dianne hugger Neutropenia Elevated liver enzymes Was consulted for the ICU admission for possible GI bleed and hypothermia. On arrival, patient temp was 91 F rectally which improved to 94 F with dianne hugger. Patient seen and examined at bed side in the ED. GI bleed is likely from anal fissure. H/H is 12.6/37.6. Last admission it was around . Vitals at that time was 109/71 mmHg, HR 66 bpm, RR-22, Spo2-98 %. Patient is not actively bleeding, is hemodynamically stable, temperature is improving with dianne hugger. Discussed with the ED physician that patient doesn' t require ICU admission at this time. Will need tele monitoring, vitals checks Q1H, Sepsis work up, IV fluids, IV antibiotics. If patient's temperature doesn't improve or becomes hemodynamically unstable or has active GI bleed, will admit the patient in ICU at any time. Thank you for this consultative opportunity.
[2018-03-04] MEDS ORDERED: LACTATED RINGERS SOLUTION 1,000 ML/1,000 ML INFUS.BAG IV SCH (00:45)
[2018-03-04 01:54] LABS: ARTERIAL BLD GAS O2 SATURATION 99.5 % (90-98.9); ARTERIAL BLOOD GAS BASE EXCESS 4.7 meq/l (-2-2); ARTERIAL BLOOD GAS PCO2 46.4 mmHg (35-45); ARTERIAL BLOOD GAS pH 7.42 (7.35-7.45); CARBOXYHEMOGLOBIN 1.2 gm% (0.5-2.0)
[2018-03-04 02:23] LABS: HEMATOCRIT 32.2 % (35.4-49); HEMOGLOBIN 10.9 GM/dL (11.7-16.9); MCH 31.9 pg (25.7-33.7); MCHC 33.8 g/dl (32.0-35.9); MEAN CELL VOLUME 94.6 fl (80-96); MEAN PLT VOLUME 10.5 fl (7.5-11.1); PLATELET COUNT 136 K/MM3 (134-434); RBC 3.41 M/mm3 (4.00-5.60); RDW 17.1 % (11.9-15.9)
[2018-03-04] MEDS ORDERED: LIDOCAINE HCL 2% JELLY (30 ML/TUBE) TP PRN (02:35)
[2018-03-04] MEDS ORDERED: PANTOPRAZOLE SODIUM 40 MG VIAL ONE (02:36)
[2018-03-04] MEDS: PANTOPRAZOLE SODIUM 80 MG in SODIUM CHLORIDE 100 ML IVPB SCH ×2 (03:00→13:36)
[2018-03-04] MEDS ORDERED: ALBUTEROL SO4 0.083% IH SOL 2.5 MG/3 ML VIAL.NEB. NEB PRN (03:05)
[2018-03-04] MEDS ORDERED: PATIENT'S OWN MEDICATION (NON-FORMULARY) (Magnesium Hydrox 2400mg/30ml 30 ML) GT SCH (03:15)
--- NOTE | 2018-03-04 05:00 | PN ---
Teaching Attending Note Name of Resident: Rebeca East ATTENDING PHYSICIAN STATEMENT I saw and evaluated the patient. I reviewed the resident's note and discussed the case with the resident. I agree with the resident's findings and plan as documented. SUBJECTIVE: Patient is a 47 y/o patient of [facility] who has a complex PMH involving MR/CP/DD stemming from childhood/ issues, microcephaly, quadraplegia, optic N. atrophy, severe kyphoscoliosis, recurring tracheitis, recurring hypothermia (resident called home and they state that this is a repeated issue with him and they warm him PRN). He is brought in to the hospital for bright red blood per rectum x1 that was noted only once today. He cannot provide any history due to his chronic medical problems. We called the nursing facility to gain additional history. He apparently gets hypothermic at baseline and is warmed with blankets, etc. His BP is low normal at baseline as well, I am told. He is noncomunicative and bedbound at his baseline. In the ER there was initial concern for sepsis and he was covered broadly. When I saw him, given that his CXR was difficult to interpret and abdominal distention we chose to get CTs of his chest/abdomen/pelvis. Showed large fecal impaction. He does have some liquid incontinence noted around a hard stool that likely represents overflow and NOT diarrhea. CT shows fecal impaction. The stool doesn't become bloody until it is around the area of the patient's rectal fissure (noted at 6 oclock on rectal exam). Spiculated mass with associated small nodules seen on chest CT. He is trach and G-tube dependent at baseline. 10 sys ROS couldn't be done due to patient's clinical status. PMH and PSH reviewed FH couldn't be confirmed with patient Social history he is developmentally disabled and cannot communicate and is dependent on nursing for all ADLs. No smoking/drinking hx. I am told his mother is still involved with his life but we need to get all signed HCP sheets , etc. OBJECTIVE: VS, Labs, Imaging all personally reviewed Awake and alert, cannot assess if orientated, opens eyes and localizes to pain and verbal stimuli RRR s1/2 no mgr Lungs CTAB with sym expansion Mild to moderate distention with palpable liver edge and irregular densitiy near this but separate questionably representing impacted colon. +BS but reduced. G tube in place. Rectal exam with 6 oclock fissue CN2-12 intact, no FND; cannot do an involved neurological exam due to his mental status and disability Legs and arms contracted, +pulses Trachea midline without JVD Labs show CBC with initial WBC 3.4 and Hb 12 range that washed out after 2+L of IVF to 3.0 and the mid-10 range. Renal function wnl. Blood gas shows a metabolic alkalosis with respiratory compensation and the CO2 on BMP is similar to that seen on prior visits. ESR elevated at 95; CRP 9.9. FOBT done twice; once was trace + and other one was normal +. Negative flu swab and unremarkable UA. Differential on CBC was essentially unremarkable. CT scans reviewed; final reports pending but prelim shows spiculated lung mass in RLL (3x2x1) with a cluster of nodules ranging from 9mm-1.5cm in the superior RUL likely representing atypical infection vs. mets. Chronic b/l rib fractures with severe kyphoscoliosis (s/p repair). He has small nonobstructing renal stones in his R-kidney and he is found to have a 7mm R renal nodule that is too small to characterize. He also has chronic b/l hip dislocations and part of his bladder herniating into his inguinal region. His chronic medical devices were visualized in appropriate places (hamilton, g-tube, trach). ASSESSMENT AND PLAN: Mr. Tobar is brought in by EMS for BRBPR and there was initial concern of sepsis in the ER. He appears to have low-normal BPs at baseline and has been chronically hypothermic at [place] as of late per the nursing with his HR trending at his normal rate. He is chronically constipated which did predispose him to a rectal fissure which was seen on examination-this is likely the cause of the BRBPR and the drop in Hb could likely have been dilutional 2/2 2L fluids +maintenance but can involve GI to ensure. Disimpaction may be an issue with the presence of a fissue. He was distended and had irregularities palpated and there was concern for ?PNA given his chronic aspiration and the history of recurring PNAs so CTs were obtained which showed potential malignancy. For this he will need to see pulmonary medicine who can be contacted in AM. 1) BRBPR -It may be rectal fissure vs. lower GI bleeding. On exam, the stool in the rectal vault is brown until it gets to the area of the fissure when it becomes mixed with bright red. The liquidy overflow incontenance the patient has with the fissure likely made initial assessment difficult. Doubt rapid transit but due to lack of history will be safe and cover with protonix and have GI clear him. Drop in Hb washout vs. organic. Trend CBC. Monitor BM. Treat underlying fissure. Avoid AC and monitor for tachycardia. Will keep NPO off his feeds until clear to resume. -Had flex sig in the past for constipation but no retroflexion; no gross abnormalities on what was seen of his colon, though. 2) Spiculated Lung Mass with multiple nodules -Concern that this could represent malignancy/metastatic disease. Should try to obtain a complete family history. May be bronchable? Will need eval and likely further imaging. Consider full body CT vs. PET once acute issues established as stable on an inpt vs. outpt basis. 3) Acute Colitis -Seen on prelim read of CT; could be due to large amount of fecal impaction with translocation of bacteria vs. inflammatory changes due to the stool. Will empirically cover in case the drop in WBC is paradoxical. Followup CDiff and lactoferrin (was on cipro over 1 month ago). Can check stool culture as well. If workup appears negative, afebrile, etc. can likely DC tx but in this complex individual we chose to err on the side of caution. 4) Rectal Fissure -Seen on exam; Sitz bath, topical lido, topical vasodilator, stool softeners QD 5) Hypothermia -We phoned the home and spoke with nursing; he intermittently becomes hypothermic at the home and I am told that they apply blankets to warm him. We are in the process of obtaining their records, but this may represent his baseline with fluctuating hypothermia, questionably from autonomic fluctuations due to his underlying issues. We plan to go ahead and do PRN warming with hugger and monitor temp closely. 6) Hypoglycemia -50s on presentation; now 60s. Will do IV D5LR as maintenance 7) Fecal Impaction in setting of chronic constipation -Needed flex-sig in past; complicated by the fissure. As GI has been called will defer to them on management. 8) Metabolic Alkalosis with Respiratory Compensation -This has interestingly been a longstanding issue for the patient. Since 2013- 2014 he has been noted to have elevated or at least very high normal CO2 on his BMP. Doesn't appear to have ever had a workup. He has been having no surruptitious vomitting or diarrhea, he does not use diuretics. This points to a possible intrinsic issue with tubular function. Checking a fractional excretion of chloride; consider esoteric diagnosis that can likely be followed up as OP. 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 Monitor exam and UOP. 12) Bilateral hip dislocations -No new issues; in setting of osteoporosis. Continue home meds. Followup with PCP. Functionally quadraplegic. 13) Bilateral rib fractures -Chronic, monitor and tx pain PRN 14) History of developmental delay -At baseline 15) Optic N. Atrophy -Known; keep in mind with response to visual stimuli 16) S/P G-tube -Holding feeds given #1; resume when clinically appropriate. 17) Hypoalbuminemia -Check prealbumin as OP; consider nutrition consult at some juncture to optimize feeds 18) Recurring tracheitis -Known; monitor for infectious process 19) Documented History of Seizures not on AEDs -In past notes; confirmed current meds with his facility. Sz. precautions. Would be helpful to review old records. 20) Transaminitis -AST/ALT/Alk Phos chronically elevated since 2016. Monitor CMP and outpatient followup with PCP for further workup and monitoring recommended. 21) Leukopenia -Ddx is broad; could be due to intrinsic process (neoplastic, etc.) vs. infective. Monitor for infectious issues, trend CBC. Slight drop likely 2/2 washout from the IVF. Checking HIV/HCV. FENA -D5LR@100 -Monitor and replete PRN -NPO in case needs scope for dx/impaction. -Bedbound at baseline Code status unchanged from prior encounters; papers confirming HCP, etc. should be obtained from his facility.
[2018-03-04] MEDS ORDERED: MAG CARB GT SCH (06:00)
[2018-03-04] MEDS ORDERED: BACLOFEN 10 MG TABLET (FP) GT SCH (06:00)
[2018-03-04] MEDS ORDERED: SIMETHICONE 40 MG/0.6 ML BOTTLE GT SCH (06:00)
[2018-03-04] MEDS ORDERED: ALGIN GT SCH (06:00)
[2018-03-04] MEDS ORDERED: ALUMINUM HYDROX GT SCH (06:00)
[2018-03-04] MEDS ORDERED: [UNRECOGNIZED DRUG - OTHER] GT SCH (06:00)
[2018-03-04] MEDS: DEXTROSE 5%-LACTATED RINGERS 1,000 ML IV SCH (06:04)
[2018-03-04 07:03] LABS: BASO % 0.4 % (0-2.0); EOS % 2.1 % (0-4.5); HEMATOCRIT 31.3 % (35.4-49); HEMOGLOBIN 10.1 GM/dL (11.7-16.9); LYMPH % 25.1 % (8-40); MCH 30.8 pg (25.7-33.7); MCHC 32.2 g/dl (32.0-35.9); MEAN CELL VOLUME 95.7 fl (80-96); MEAN PLT VOLUME 10.2 fl (7.5-11.1); MONO % 11.3 % (3.8-10.2); NEUT % 61.1 % (42.8-82.8); PLATELET COUNT 125 K/MM3 (134-434); RBC 3.28 M/mm3 (4.00-5.60); RDW 17.1 % (11.9-15.9); WHITE BLOOD COUNT 3.8 K/mm3 (4.0-10.0)
[2018-03-04 07:11] LABS: INR 1.02 (0.83-1.09)
[2018-03-04 07:55] LABS: ALBUMIN 2.4 g/dl (3.4-5.0); ALK PHOS 143 U/L (45-117); ANION GAP 7 MMOL/L (8-16); BILIRUBIN,TOTAL 0.4 mg/dL (0.2-1); BLOOD UREA NITROGEN 20 mg/dL (7-18); CALCIUM 7.7 mg/dL (8.5-10.1); CHLORIDE 107 mmol/L (98-107); CO2 28 mmol/L (21-32); CREATININE 0.6 mg/dL (0.55-1.3); GLUCOSE,RANDOM 59 mg/dL (74-106); MAGNESIUM 3.4 mg/dL (1.8-2.4); POTASSIUM 3.4 mmol/L (3.5-5.1); SGOT/AST 53 U/L (15-37); SGPT/ALT 65 U/L (13-61); SODIUM 143 mmol/L (136-145); TOT PROT 6.1 g/dl (6.4-8.2)
--- NOTE | 2018-03-04 08:49 | EKG ---
Test Reason : Blood Pressure : / mmHG Vent. Rate : 056 BPM Atrial Rate : 056 BPM P-R Int : 180 ms QRS Dur : 082 ms QT Int : 452 ms P-R-T Axes : 010 014 023 degrees QTc Int : 436 ms POOR DATA QUALITY, INTERPRETATION MAY BE ADVERSELY AFFECTED SINUS BRADYCARDIA WHEN COMPARED WITH ECG OF 29-JAN-2016 13:19, NON-SPECIFIC CHANGE IN ST SEGMENT IN INFERIOR LEADS Confirmed by MARISELA COLES, AMBROSIO ([id number]) on 03/04/2018 8:49:17 AM Referred By: Confirmed By:AMBROSIO ANTONIO MD
[2018-03-04] MEDS ORDERED: PT OWN MED DRAWER 7, Y5N ONE ×2 (09:47→11:41)
[2018-03-04] MEDS ORDERED: SENNOSIDES 8.8 MG/5 ML BULK BOTTLE GT SCH (10:00)
[2018-03-04] MEDS ORDERED: EPA GT SCH (10:00)
[2018-03-04] MEDS ORDERED: PATIENT'S OWN MEDICATION (NON-FORMULARY) (Lubiprostone [Amitiza] 24 MCG) GT SCH (10:00)
[2018-03-04] MEDS ORDERED: CHOLECALCIFEROL (VITAMIN D3) 1,000 UNIT TABLET (FP) GT SCH (10:00)
[2018-03-04] MEDS ORDERED: FISH OIL GT SCH (10:00)
[2018-03-04] MEDS ORDERED: [UNRECOGNIZED DRUG - OTHER] GT SCH (10:00)
[2018-03-04] MEDS ORDERED: OMEGA GT SCH (10:00)
[2018-03-04] MEDS ORDERED: DHA GT SCH (10:00)
[2018-03-04] MEDS ORDERED: PATIENT'S OWN MEDICATION (NON-FORMULARY) (Calcium Carbonate/Vitamin D3 [Oystercal-D 500 Mg GT SCH (10:00)
[2018-03-04] MEDS ORDERED: ENOXAPARIN NA (PORCINE) 40 MG/0.4 ML DISP.SYRIN SQ SCH (10:00)
[2018-03-04] MEDS: SCOPOLAMINE HYDROBROMIDE 1 PATCH PATCH.TD72 TD SCH (10:21)
[2018-03-04 12:07] LABS: BASO % 0.5 % (0-2.0); EOS % 2.4 % (0-4.5); HEMOGLOBIN 10.2 GM/dL (11.7-16.9); LYMPH % 24.1 % (8-40); MCH 31.5 pg (25.7-33.7); MEAN CELL VOLUME 95.5 fl (80-96); MEAN PLT VOLUME 9.7 fl (7.5-11.1); MONO % 11.5 % (3.8-10.2); NEUT % 61.5 % (42.8-82.8); PLATELET COUNT 135 K/MM3 (134-434); RBC 3.25 M/mm3 (4.00-5.60); RDW 16.6 % (11.9-15.9); WHITE BLOOD COUNT 4.1 K/mm3 (4.0-10.0)
--- NOTE | 2018-03-04 13:15 | PN ---
Progress Note (short form) - Note Progress Note: PULMONARY CONSULTATION DICTATED 03/04/18
--- NOTE | 2018-03-04 14:54 | CON.GI ---
Consult Consult Specialty:: GI Referred by:: Dr. Rao Reason for Consultation:: Blood in stool - History of Present Illness Chief Complaint: Patient non-verbal History of Present Illness: 47M transferred from [facility] for rectal bleeding. 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 CATCHER: Yes: Seizure, Other (quadraplegia, microcephaly, profound MR) Gastrointestinal: Yes: Constipation Musculoskeletal: Yes: Paraplegia, Other (SCOLIOSIS) Additional Medical History: CP/MICROCEPHALY - Past Surgical History Additional Surgical History: Abdomnal scar of unclear etiology, G-Tube - Alcohol/Substance Use Hx Alcohol Use: No History of Substance Use: reports: None - Smoking History Smoking history: Never smoked Have you smoked in the past 12 months: No - Social History Usual Living Arrangement: Other (at [facility] in [place]) ADL: Support Services History of Recent Travel: No Home Medications - Allergies Allergies/Adverse Reactions: Allergies Allergy/AdvReac Type Severity Reaction Status Date / Time Sulfa (Sulfonamide AdvReac Verified 03/04/18 01:01 Antibiotics) - Home Medications Home Medications: Ambulatory Orders Albuterol 0.083% Nebulizer Mami [Ventolin 0.083% Nebulizer Soln -] 1 neb NEB QID PRN 01/29/16 Baclofen 10 mg GT TID 01/29/16 Calcium Carbonate/Vitamin D3 [Oystercal-D 500 mg-400 Unit Tb] 2 tab GT HS Cholecalciferol (Vitamin D3) [Vitamin D3] 2,000 unit GT HS 01/29/16 Lubiprostone [Amitiza] 24 mcg GT BID 01/29/16 Mag Carb/Aluminum Hydrox/Algin [Riginic Suspension] 5 ml GT TID 01/29/16 Magnesium Hydrox 2400MG/30Ml [Milk of Magnesia -] 30 ml GT HS 01/29/16 Sennosides [Senna] 10 ml GT DAILY 01/29/16 Simethicone 40 mg GT TID 01/29/16 Bisacodyl Suppository [Dulcolax Suppository -] 10 mg RC ASDIR PRN 03/04/18 Mobile-3/Dha/Epa/Fish Oil [Fish Oil 1,600 mg/5 ml Liquid] 1,000 mg GT BID Scopolamine [Transderm-Scop] 1 patch.72h TD ASDIR 03/04/18 Family Disease History - Family Disease History Family History: Unable to Obtain Physical Exam-GI Vital Signs: Vital Signs Temperature 96.2 F L 03/04/18 14:18 Pulse Rate 60 03/04/18 14:18 Respiratory Rate 20 03/04/18 14:18 Blood Pressure 91/53 L 03/04/18 14:18 O2 Sat by Pulse Oximetry (%) 100 03/04/18 09:00 Constitutional: Yes: Calm Eyes: No: Sclera Icterus Cardiovascular: Yes: Bradycardia Respiratory: Yes: Diminished (at bases b/l) Gastrointestinal Inspection: Yes: Scars (midline vertical surgical scar). No: Distention ...Auscultate: Yes: Normoactive Bowel Sounds ...Palpate: No: Tenderness (no grimacing upon palpation) ...Percussion: No: Tympanitic ...Rectal Exam: Yes: Other (Fecal impaction in the proximal rectum. Some stool was able to be removed manually. There was no blood) Edema: No (No LE edema) Labs: CBC, BMP 03/04/18 11:50 03/04/18 05:50 INR, PTT INR 1.02 (0.83-1.09) 03/04/18 05:50 Imaging - Results Cat Scan: Report Reviewed, Image Reviewed Problem List - Problems (1) Fecal impaction in rectum Assessment/Plan: likely leading to bleeding secondary to internal hemorrhoidal irritation. No blood noted on TIFFANY today. Anemia appears to be chronic 1. No need for PPI drip. This is not an upper GI bleed 2. Needs tap water enema followed by daily mineral oil enemas 3. MiraLAX 17g via G tube TID for 3 days followed by twice daily 3. Needs aggressive bowel care at his senior living. Care needs to extend as outpatient as well. should be checked for evolving rectal fecal impactions while residing at [place] Code(s): K56.41 - FECAL IMPACTION
--- NOTE | 2018-03-04 15:43 | PN ---
Progress Note, Physician Chief Complaint: Unable to obtain - Current Medication List Current Medications: Active Medications Albuterol Sulfate (Ventolin 0.083% Nebulizer Soln -) 1 amp NEB Q6H PRN PRN Reason: ASTHMA Metronidazole (Flagyl 500mg Premixed Ivpb -) 500 mg in 100 mls @ 100 mls/hr IVPB Q8H-IV TARIQ Last Admin: 03/04/18 10:21 Dose: 100 mls/hr Levofloxacin (Levaquin 750 Mg Premixed Ivpb -) 750 mg in 150 mls @ 100 mls/hr IVPB DAILY TARIQ; Protocol Last Admin: 03/04/18 07:00 Dose: 100 mls/hr Dextrose/Lactated Ringer's (D5-Lr -) 1,000 mls @ 100 mls/hr IV ASDIR TARIQ Last Admin: 03/04/18 06:04 Dose: 100 mls/hr Lidocaine HCl (Xylocaine 2% Jelly) 1 applic TP Q4H PRN PRN Reason: PAIN FROM ANAL FISSURE Mineral Oil (Fleet Mineral Oil Rectal Enema -) 133 ml NH DAILY TARIQ Stop: 03/07/18 17:59 Polyethylene Glycol (Miralax (For Daily Use) -) 17 gm PO TID TARIQ Stop: 03/07/18 21:59 Scopolamine HBr (Transderm-Scop -) 1 patch TD Q3D@1000 TARIQ Last Admin: 03/04/18 10:21 Dose: 1 patch - Objective Vital Signs: Vital Signs Temperature 35.7 C L 03/04/18 14:18 Pulse Rate 60 03/04/18 14:18 Respiratory Rate 20 03/04/18 14:18 Blood Pressure 91/53 L 03/04/18 14:18 O2 Sat by Pulse Oximetry (%) 100 03/04/18 09:00 Constitutional: Yes: Well Nourished, No Distress Cardiovascular: Yes: Regular Rate and Rhythm. No: Gallop, Murmur, Rub Respiratory: Yes: Regular, Rhonchi. No: CTA Bilaterally, Rales, Wheezes Gastrointestinal: Yes: Normal Bowel Sounds, Soft. No: Distention, Tenderness Extremities: Yes: WNL Edema: No Labs: CBC, BMP 03/04/18 11:50 03/04/18 05:50 INR, PTT INR 1.02 (0.83-1.09) 03/04/18 05:50 Problem List - Problems (1) Hypothermia Code(s): T68.XXXA - HYPOTHERMIA, INITIAL ENCOUNTER Qualifiers: Encounter type: initial encounter Qualified Code(s): T68.XXXA - Hypothermia , initial encounter (2) Fecal impaction in rectum Code(s): K56.41 - FECAL IMPACTION (3) Rectal bleeding Code(s): K62.5 - HEMORRHAGE OF ANUS AND RECTUM (4) Quadriplegia Code(s): G82.50 - QUADRIPLEGIA, UNSPECIFIED (5) Colitis Code(s): K52.9 - NONINFECTIVE GASTROENTERITIS AND COLITIS, UNSPECIFIED (6) Anemia Code(s): D64.9 - ANEMIA, UNSPECIFIED (7) Chronic respiratory failure with hypoxia Code(s): J96.11 - CHRONIC RESPIRATORY FAILURE WITH HYPOXIA Assessment/Plan -continue levaquin and flagyl -continue warming patient -leukopenia improving, now normal -replace K -continue IVF -appreciate GI assistance -continue holding tube feeds for the moment -re-assess, possible start tomorrow
[2018-03-04] MEDS: KCL 10 MEQ IVPB 10 MEQ/100 ML INFUS.BAG IVPB SCH ×2 (16:26→17:50)
--- NOTE | 2018-03-04 16:26 | PN ---
Progress Note (short form) - Note Progress Note: PULMONARY CONSULTATION DICTATED 03/04/18 IMP RUL/RLL OPACITIES/HYPOTHERMIA R/O PNEUMONIA,POSSIBLE MALIGNANCY R/O SEPSIS MICROCEPHALY PROFOUND MENTAL RETARDATION CONGENITAL QUADRAPLEGIA S/P TRACH/PEG HEME + STOOLS PLAN IV ABX INHALED BRONCHODILATORS TRACHEAL SUCTIONING O2 CULTURES NUTRITIONAL SUPPORT ASPIRATION PRECAUTIONS DR GORMAN Problem List - Problems (1) Rectal bleeding Code(s): K62.5 - HEMORRHAGE OF ANUS AND RECTUM (2) Chronic respiratory failure with hypoxia Code(s): J96.11 - CHRONIC RESPIRATORY FAILURE WITH HYPOXIA (3) Hypothermia Code(s): T68.XXXA - HYPOTHERMIA, INITIAL ENCOUNTER Qualifiers: Encounter type: initial encounter Qualified Code(s): T68.XXXA - Hypothermia , initial encounter (4) Increased tracheal secretions Code(s): J39.8 - OTHER SPECIFIED DISEASES OF UPPER RESPIRATORY TRACT (6) Quadriplegia Code(s): G82.50 - QUADRIPLEGIA, UNSPECIFIED (7) Respiratory distress Code(s): R06.00 - DYSPNEA, UNSPECIFIED (8) Wheezing Code(s): R06.2 - WHEEZING
--- NOTE | 2018-03-04 16:37 | CON.ID ---
Consult Consult Specialty:: infectious disease Referred by:: hospitalist Reason for Consultation:: possible pneumonia - History of Present Illness Chief Complaint: rectal bleeding History of Present Illness: 47 yo man with severe mental retardation trach, PEG, nonverb resident of [facility]- brought to ED for guaic positive stool he was noted to be hypothermic he was found to have a rectal fissure on exam ct scan abd and pelvis showed fecal impaction ct scan of chest shows 2 small nodular opacities RUL and RLL per [facility] he has chronic hypothermia last hospitalized at [facility] 6 months ago for respiratory infection - History Source History Provided By: Medical Record Limitations to Obtaining History: Clinical Condition - 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 valenzuela rods - Alcohol/Substance Use Hx Alcohol Use: No History of Substance Use: reports: None - Smoking History Smoking history: Never smoked Have you smoked in the past 12 months: No - Social History Usual Living Arrangement: Other (at [facility]) ADL: Support Services Place of : [place] History of Recent Travel: No Home Medications - Allergies Allergies/Adverse Reactions: Allergies Allergy/AdvReac Type Severity Reaction Status Date / Time Sulfa (Sulfonamide AdvReac Verified 03/04/18 01:01 Antibiotics) - Home Medications Home Medications: Ambulatory Orders Albuterol 0.083% Nebulizer Mami [Ventolin 0.083% Nebulizer Soln -] 1 neb NEB QID PRN 01/29/16 Baclofen 10 mg GT TID 01/29/16 Calcium Carbonate/Vitamin D3 [Oystercal-D 500 mg-400 Unit Tb] 2 tab GT HS Cholecalciferol (Vitamin D3) [Vitamin D3] 2,000 unit GT HS 01/29/16 Lubiprostone [Amitiza] 24 mcg GT BID 01/29/16 Mag Carb/Aluminum Hydrox/Algin [Riginic Suspension] 5 ml GT TID 01/29/16 Magnesium Hydrox 2400MG/30Ml [Milk of Magnesia -] 30 ml GT HS 01/29/16 Sennosides [Senna] 10 ml GT DAILY 01/29/16 Simethicone 40 mg GT TID 01/29/16 Bisacodyl Suppository [Dulcolax Suppository -] 10 mg RC ASDIR PRN 03/04/18 Cameron-3/Dha/Epa/Fish Oil [Fish Oil 1,600 mg/5 ml Liquid] 1,000 mg GT BID Scopolamine [Transderm-Scop] 1 patch.72h TD ASDIR 03/04/18 Family Disease History - Family Disease History Family History: Unable to Obtain Review of Systems - Review of Systems Constitutional: denies: Chills, Diaphoresis, Fever Physical Exam Vital Signs: Vital Signs Temperature 96.2 F L 03/04/18 14:18 Pulse Rate 60 03/04/18 14: Respiratory Rate 20 03/04/18 14:18 Blood Pressure 91/53 L 03/04/18 14:18 O2 Sat by Pulse Oximetry (%) 100 03/04/18 09:00 Constitutional: Yes: No Distress, Calm Eyes: Yes: Conjunctiva Clear HENT: Yes: Atraumatic, Normocephalic Neck: Yes: Other (tracheostomy) Cardiovascular: Yes: Regular Rate and Rhythm Respiratory: Yes: Regular, CTA Bilaterally, Diminished (at bases) Gastrointestinal: Yes: Normal Bowel Sounds, Soft, Other (GT) ...Rectal Exam: Yes: Deferred Renal/: Yes: Murrell Present Extremities: Yes: WNL Edema: No Labs: CBC, BMP 03/04/18 11:50 03/04/18 05:50 Laboratory Tests 03/03/18 03/04/18 22:33 05:50 AST 53 H ALT 65 H Alkaline Phosphatase 143 H Urine pH 8.0 Ur Specific [place] 1.008 L Urine Protein Negative Urine Glucose (UA) Negative Urine Ketones Negative Urine Blood Negative Urine Nitrite Negative Urine Bilirubin Negative Urine Urobilinogen Negative Ur Leukocyte Esterase Negative legionella antigen negative pneumococcal antigen negative Imaging - Results Chest X-ray: Report Reviewed Cat Scan: Report Reviewed, Image Reviewed Problem List - Problems (1) Fecal impaction in rectum Code(s): K56.41 - FECAL IMPACTION (2) Pulmonary infiltrate present on computed tomography Code(s): R91.8 - OTHER NONSPECIFIC ABNORMAL FINDING OF LUNG FIELD (3) Rectal bleeding Code(s): K62.5 - HEMORRHAGE OF ANUS AND RECTUM (4) Allergy to sulfa drugs Code(s): Z88.2 - ALLERGY STATUS TO SULFONAMIDES STATUS Assessment/Plan differential diagnosis for lung process includes infectious versus neoplastic no evidence of colitis fecal impaction with rectal fissure continue levaquin for 7 days can d/c flagyl will need repeat chest ct to f/u the lung lesions apparently is always hypothermic at baseline continue contact isolation pending repeat sputum culture- hopefully can d/c isolation d/w hospitalist
[2018-03-04] MEDS: MINERAL OIL ENEMA 133 ML ENEMA PR SCH (19:10)
--- NOTE | 2018-03-04 20:42 | CONS ---
DATE OF CONSULTATION: 03/04/2018 REFERRING PHYSICIAN: Jaylen Rao MD HISTORY: History is obtained per chart. It describes a 47-year-old white male with past medical history of mental retardation, microcephalus, congenital quadriplegia, seizure disorder, optic atrophy, encephalic cyst, kyphoscoliosis, sleep apnea, osteoporosis, dermatitis, recurrent tracheitis, undescended testicles, hypothermia, status post tracheostomy, percutaneous endoscopic gastrostomy, bed bound, wheelchair bound presently at [facility] admitted to [facility] secondary to hypothermia and bright red blood per rectum. Apparently, nurses at the [facility] noted that the patient had a normal, well-formed stool in the morning and then bright red blood was noted. Apparent, his stool was tested and found to be positive for occult blood. There was no apparent recent diarrhea, but he had intermittent semi-formed stools recently. The patient also was noted to be hypothermic at which time he was transferred to [facility] ER. In the ER, he was noted initially have a temperature of 98. Subsequent repeat was 98.4. He was transferred up to medical floor for further management. He underwent a CT scan of the chest, which revealed evidence of a 1.6-cm spiculated nodule lesion in the superior segment of the right upper lobe and also a focal opacity in the right lower lobe medially 2 cm x 2 cm x 1.5 cm. He was admitted. He was started on bronchodilators as well as antibiotic therapy. He was also noted to have increase in tracheal secretions thick yellow color. He was evaluated earlier by Dr. Stanford Ennis for consultation GI. The bleeding was secondary to internal hemorrhoidal irritation. PAST MEDICAL HISTORY: Again includes profound mental retardation, microcephalus , congenital quadriplegia, seizure disorder, optic nerve atrophy, encephalic cyst, kyphoscoliosis, sleep apnea, osteoporosis, dermatitis, recurrent tracheitis, undescended testes, tracheostomy PEG. REVIEW OF SYSTEMS; Unable to obtain. CURRENT MEDICATIONS: Include Levaquin, metronidazole, mineral oil, albuterol, lidocaine, KCl. PHYSICAL EXAMINATION: General: The patient is a well-developed male awake and congested in no acute distress. Vital Signs: Currently temperature is 96.2, blood pressure 91/53, respiratory rate is 20, O2 saturation is 100% on tracheostomy collar. HEENT: Microcephalic and atraumatic. Neck: Supple. Tracheostomy is patent. Heart: Regular S1, S2. Chest: Scattered bilateral rhonchi throughout. Abdomen: Soft. Bowel sounds are positive. Extremities: Shortened. LABORATORIES: Blood gas: PH 7.42, PCO2 of 46, PO2 of 147, bicarbonate of 30, saturation 99.5. WBC 4.1, hemoglobin 10.3, hematocrit 31 with a platelet count of 135,000. Chemistries: BUN 20, creatinine 0.6, TSH 6.9. Chest CT as noted earlier. IMPRESSION: 1. Hypothermia, rule out possible pneumonia and sepsis. 2. Nodular densities, rule out possible pneumonia, rule out possible malignancy. 3. Severe mental retardation. 4. Microcephaly. 5. History of sleep apnea status post tracheostomy, percutaneous endoscopic gastrostomy. 6. Congenital quadriplegia. 7. Seizure disorder. 8. Kyphoscoliosis. 9. Positive stool guaiacs. PLAN: Broad-spectrum antibiotics. Supplemental O2. Monitor blood pressure. Follow up chest x-rays. Obtain cultures. Nutritional support. Pulmonary toilet. Monitor hemoglobin and hematocrit, f/u chest ct outpatient ANDRÉS GORMAN M.D. IVONNE/[id number] MTDD
[2018-03-04] MEDS: ALBUTEROL SO4 2.5/IPRATROPIUM 0.5 INH SOL 3 ML VIAL.NEB. NEB SCH (21:42)
[2018-03-04] MEDS: POLYETHYLENE GLYCOL 3350 119 GM BTL PO SCH (22:27)
[2018-03-05] MEDS: POLYETHYLENE GLYCOL 3350 119 GM BTL PO SCH ×3 (05:11→22:00)
[2018-03-05 06:06] LABS: HEP A AB, IGM Negative (Negative)
[2018-03-05] MEDS: DEXTROSE 5%-LACTATED RINGERS 1,000 ML IV SCH (06:52)
[2018-03-05] MEDS: ALBUTEROL SO4 2.5/IPRATROPIUM 0.5 INH SOL 3 ML VIAL.NEB. NEB SCH ×4 (07:30→20:24)
[2018-03-05 07:46] LABS: BASO % 0.4 % (0-2.0); EOS % 3.9 % (0-4.5); HEMATOCRIT 29.9 % (35.4-49); HEMOGLOBIN 9.7 GM/dL (11.7-16.9); LYMPH % 38.7 % (8-40); MCH 30.8 pg (25.7-33.7); MCHC 32.4 g/dl (32.0-35.9); MEAN CELL VOLUME 95.2 fl (80-96); MEAN PLT VOLUME 9.6 fl (7.5-11.1); MONO % 11.7 % (3.8-10.2); NEUT % 45.3 % (42.8-82.8); PLATELET COUNT 142 K/MM3 (134-434); RBC 3.14 M/mm3 (4.00-5.60); WHITE BLOOD COUNT 3.4 K/mm3 (4.0-10.0)
[2018-03-05 08:06] LABS: ANION GAP 9 MMOL/L (8-16); BLOOD UREA NITROGEN 9 mg/dL (7-18); CHLORIDE 110 mmol/L (98-107); CO2 26 mmol/L (21-32); CREATININE 0.6 mg/dL (0.55-1.3); GLUCOSE,RANDOM 74 mg/dL (74-106); MAGNESIUM 2.5 mg/dL (1.8-2.4); PHOSPHOROUS 2.6 mg/dL (2.5-4.9); POTASSIUM 3.3 mmol/L (3.5-5.1); SODIUM 144 mmol/L (136-145)
[2018-03-05] MEDS ORDERED: PT OWN MED DRAWER 7, Y5N ONE ×2 (08:31→09:30)
[2018-03-05] MEDS: MINERAL OIL ENEMA 133 ML ENEMA PR SCH ×2 (08:58→10:08)
[2018-03-05] MEDS ORDERED: POTASSIUM CHLORIDE ORAL LIQUID 20 MEQ/15 ML PEG ONE (10:22)
--- NOTE | 2018-03-05 10:23 | PN ---
Progress Note, Physician History of Present Illness: pulmonary comfortable,-resp distress,on trach collar 35% - Current Medication List Current Medications: Active Medications Albuterol Sulfate (Ventolin 0.083% Nebulizer Soln -) 1 amp NEB Q6H PRN PRN Reason: ASTHMA Albuterol/Ipratropium (Duoneb -) 1 amp NEB RQID [facility] Last Admin: 03/05/18 07:30 Dose: 1 amp Dextrose/Lactated Ringer's (D5-Lr -) 1,000 mls @ 100 mls/hr IV ASDIR [facility] Last Admin: 03/05/18 06:52 Dose: 100 mls/hr Levofloxacin (Levaquin 500 Mg Premixed Ivpb -) 500 mg in 100 mls @ 100 mls/hr IVPB DAILY [facility]; Protocol Last Admin: 03/05/18 10:09 Dose: Not Given Lidocaine HCl (Xylocaine 2% Jelly) 1 applic TP Q4H PRN PRN Reason: PAIN FROM ANAL FISSURE Mineral Oil (Fleet Mineral Oil Rectal Enema -) 133 ml [place] DAILY [facility] Stop: 03/07/18 17:59 Last Admin: 03/05/18 10:08 Dose: Not Given Polyethylene Glycol (Miralax (For Daily Use) -) 17 gm PO TID [facility] Stop: 03/07/18 21:59 Last Admin: 03/05/18 05:11 Dose: 17 grams Scopolamine HBr (Transderm-Scop -) 1 patch TD Q3D@1000 [facility] Last Admin: 03/04/18 10:21 Dose: 1 patch - Objective Vital Signs: Vital Signs Temperature 97.5 F L 03/05/18 05:37 Pulse Rate 54 L 03/05/18 05:37 Respiratory Rate 20 03/05/18 05:37 Blood Pressure 94/56 L 03/05/18 05:37 O2 Sat by Pulse Oximetry (%) 96 03/04/18 21:00 Constitutional: Yes: Calm, Thin Eyes: Yes: WNL HENT: Yes: Other (microcephalic) Neck: Yes: Supple (trach) Cardiovascular: Yes: Regular Rate and Rhythm, S1, S2 Respiratory: Yes: Rhonchi (scattered rhonchi) Gastrointestinal: Yes: Normal Bowel Sounds, Soft Extremities: Yes: Shortened, Other (contracted) Labs: CBC, BMP 03/05/18 06:10 03/05/18 06:30 INR, PTT INR 1.02 (0.83-1.09) 03/04/18 05:50 Problem List - Problems (1) Rectal bleeding Code(s): K62.5 - HEMORRHAGE OF ANUS AND RECTUM (2) Chronic respiratory failure with hypoxia Code(s): J96.11 - CHRONIC RESPIRATORY FAILURE WITH HYPOXIA (3) Hypothermia Code(s): T68.XXXA - HYPOTHERMIA, INITIAL ENCOUNTER Qualifiers: Encounter type: initial encounter Qualified Code(s): T68.XXXA - Hypothermia , initial encounter (4) Increased tracheal secretions Code(s): J39.8 - OTHER SPECIFIED DISEASES OF UPPER RESPIRATORY TRACT (6) Quadriplegia Code(s): G82.50 - QUADRIPLEGIA, UNSPECIFIED (7) Respiratory distress Code(s): R06.00 - DYSPNEA, UNSPECIFIED (8) Wheezing Code(s): R06.2 - WHEEZING Assessment/Plan IMP RUL/RLL OPACITIES/HYPOTHERMIA R/O PNEUMONIA,POSSIBLE MALIGNANCY R/O SEPSIS MICROCEPHALY PROFOUND MENTAL RETARDATION CONGENITAL QUADRAPLEGIA S/P TRACH/PEG HEME + STOOLS PLAN IV ABX PER ID INHALED BRONCHODILATORS TRACHEAL SUCTIONING O2 NUTRITIONAL SUPPORT ASPIRATION PRECAUTIONS F/U CHEST CT 6-[address] GORMAN Problem List - Problems (1) Rectal bleeding Code(s): K62.5 - HEMORRHAGE OF ANUS AND RECTUM (2) Chronic respiratory failure with hypoxia Code(s): J96.11 - CHRONIC RESPIRATORY FAILURE WITH HYPOXIA (3) Hypothermia Code(s): T68.XXXA - HYPOTHERMIA, INITIAL ENCOUNTER Qualifiers: Encounter type: initial encounter Qualified Code(s): T68.XXXA - Hypothermia , initial encounter (4) Increased tracheal secretions Code(s): J39.8 - OTHER SPECIFIED DISEASES OF UPPER RESPIRATORY TRACT (6) Quadriplegia Code(s): G82.50 - QUADRIPLEGIA, UNSPECIFIED (7) Respiratory distress Code(s): R06.00 - DYSPNEA, UNSPECIFIED (8) Wheezing Code(s): R06.2 - WHEEZING
--- NOTE | 2018-03-05 10:26 | PN ---
Progress Note, Physician Chief Complaint: Unable to obtain - Current Medication List Current Medications: Active Medications Albuterol Sulfate (Ventolin 0.083% Nebulizer Soln -) 1 amp NEB Q6H PRN PRN Reason: ASTHMA Albuterol/Ipratropium (Duoneb -) 1 amp NEB RQID [facility] Last Admin: 03/05/18 07:30 Dose: 1 amp Levofloxacin (Levaquin 500 Mg Premixed Ivpb -) 500 mg in 100 mls @ 100 mls/hr IVPB DAILY [facility]; Protocol Last Admin: 03/05/18 10:09 Dose: Not Given Lidocaine HCl (Xylocaine 2% Jelly) 1 applic TP Q4H PRN PRN Reason: PAIN FROM ANAL FISSURE Mineral Oil (Fleet Mineral Oil Rectal Enema -) 133 ml [place] DAILY [facility] Stop: 03/07/18 17:59 Last Admin: 03/05/18 10:08 Dose: Not Given Polyethylene Glycol (Miralax (For Daily Use) -) 17 gm PO TID [facility] Stop: 03/07/18 21:59 Last Admin: 03/05/18 05:11 Dose: 17 grams Potassium Chloride (Potassium Chloride Oral Liquid) 40 meq PEG ONCE ONE Stop: 03/05/18 10:23 Scopolamine HBr (Transderm-Scop -) 1 patch TD Q3D@1000 [facility] Last Admin: 03/04/18 10:21 Dose: 1 patch - Objective Vital Signs: Vital Signs Temperature 36.4 C L 03/05/18 05:37 Pulse Rate 54 L 03/05/18 05:37 Respiratory Rate 20 03/05/18 05:37 Blood Pressure 94/56 L 03/05/18 05:37 O2 Sat by Pulse Oximetry (%) 96 03/04/18 21:00 Constitutional: Yes: Well Nourished, No Distress, Calm Cardiovascular: Yes: Regular Rate and Rhythm. No: Gallop, Murmur, Rub Respiratory: Yes: Regular, CTA Bilaterally. No: Rales, Rhonchi, Wheezes Gastrointestinal: Yes: Normal Bowel Sounds, Soft. No: Distention, Tenderness Extremities: Yes: WNL Edema: No Labs: CBC, BMP 03/05/18 06:10 03/05/18 06:30 INR, PTT INR 1.02 (0.83-1.09) 03/04/18 05:50 Problem List - Problems (1) Hypothermia Code(s): T68.XXXA - HYPOTHERMIA, INITIAL ENCOUNTER Qualifiers: Encounter type: initial encounter Qualified Code(s): T68.XXXA - Hypothermia , initial encounter (2) Fecal impaction in rectum Code(s): K56.41 - FECAL IMPACTION (3) Rectal bleeding Code(s): K62.5 - HEMORRHAGE OF ANUS AND RECTUM (4) Quadriplegia Code(s): G82.50 - QUADRIPLEGIA, UNSPECIFIED (5) Colitis Code(s): K52.9 - NONINFECTIVE GASTROENTERITIS AND COLITIS, UNSPECIFIED (6) Anemia Code(s): D64.9 - ANEMIA, UNSPECIFIED (7) Chronic respiratory failure with hypoxia Code(s): J96.11 - CHRONIC RESPIRATORY FAILURE WITH HYPOXIA (9) Hypokalemia Code(s): E87.6 - HYPOKALEMIA Assessment/Plan -case d/w ID yesterday -continue levaquin -flagyl discontinued -continue bowel regimen, had large bm this am -restart TF -replace potassium -d/c IVF -continue current management -temperature improving
--- NOTE | 2018-03-05 15:26 | PN ---
Progress Note (short form) - Note Progress Note: doing well resting comfortably Vital Signs Period Temp Pulse Resp BP Sys/Oropeza Pulse Ox Last 24 Hr 97.1 F-97.5 F 54-89 18-20 94-116/56-69 96-96 cor-rrr lungs decreased bs at bases abd soft,nt ext no edema trach gtube CBC, BMP 03/05/18 06:10 03/05/18 06:30 Microbiology 03/04/18 01:30 Sputum - Endotrachea Suction/Ventilator Gram Stain - Final 03/04/18 01:30 Sputum - Endotrachea Suction/Ventilator Sputum Culture - Preliminary Lactose Fermenting Neg Bacilli 03/03/18 22:33 Urine - Urine - Catheterized Urine Culture - Final NO GROWTH OBTAINED 03/03/18 19:57 Blood - Peripheral Venous Blood Culture - Preliminary NO GROWTH OBTAINED AFTER 24 HOURS, INCUBATION TO CONTINUE FOR 4 DAYS. 03/03/18 19:47 Blood - Peripheral Venous Blood Culture - Preliminary NO GROWTH OBTAINED AFTER 24 HOURS, INCUBATION TO CONTINUE FOR 4 DAYS. 03/04/18 03:20 Urine For Antigen Detection Legionella Antigen - Final 03/04/18 03:20 Urine For Antigen Detection Streptococcus pneumoniae Antigen (M - Final a/p bronchitis cp/mr fevers resolved continue levaquin will f/u cultures in am Problem List - Problems (1) Fecal impaction in rectum Code(s): K56.41 - FECAL IMPACTION (2) Pulmonary infiltrate present on computed tomography Code(s): R91.8 - OTHER NONSPECIFIC ABNORMAL FINDING OF LUNG FIELD (3) Rectal bleeding Code(s): K62.5 - HEMORRHAGE OF ANUS AND RECTUM (4) Allergy to sulfa drugs Code(s): Z88.2 - ALLERGY STATUS TO SULFONAMIDES STATUS
[2018-03-05 15:56] VITALS: BMI 22.5
[2018-03-06] MEDS: POLYETHYLENE GLYCOL 3350 119 GM BTL PO SCH ×3 (07:00→23:12)
[2018-03-06 07:45] LABS: BASO % 0.6 % (0-2.0); EOS % 3.8 % (0-4.5); HEMATOCRIT 32.6 % (35.4-49); HEMOGLOBIN 10.6 GM/dL (11.7-16.9); LYMPH % 37.7 % (8-40); MCH 30.9 pg (25.7-33.7); MCHC 32.4 g/dl (32.0-35.9); MEAN CELL VOLUME 95.3 fl (80-96); MEAN PLT VOLUME 9.6 fl (7.5-11.1); MONO % 11.5 % (3.8-10.2); NEUT % 46.4 % (42.8-82.8); PLATELET COUNT 166 K/MM3 (134-434); RBC 3.43 M/mm3 (4.00-5.60); RDW 16.9 % (11.9-15.9); WHITE BLOOD COUNT 4.5 K/mm3 (4.0-10.0)
[2018-03-06] MEDS: ALBUTEROL SO4 2.5/IPRATROPIUM 0.5 INH SOL 3 ML VIAL.NEB. NEB SCH ×4 (07:58→20:20)
[2018-03-06 08:30] LABS: ANION GAP 4 MMOL/L (8-16); BLOOD UREA NITROGEN 11 mg/dL (7-18); CALCIUM 8.8 mg/dL (8.5-10.1); CHLORIDE 112 mmol/L (98-107); CO2 27 mmol/L (21-32); CREATININE 0.6 mg/dL (0.55-1.3); GLUCOSE,RANDOM 67 mg/dL (74-106); MAGNESIUM 2.6 mg/dL (1.8-2.4); PHOSPHOROUS 3.8 mg/dL (2.5-4.9); POTASSIUM 3.7 mmol/L (3.5-5.1); SODIUM 142 mmol/L (136-145)
[2018-03-06] MEDS: MINERAL OIL ENEMA 133 ML ENEMA PR SCH (10:00)
--- NOTE | 2018-03-06 10:45 | PN ---
Progress Note, Physician Chief Complaint: Unable to obtain - Current Medication List Current Medications: Active Medications Albuterol Sulfate (Ventolin 0.083% Nebulizer Soln -) 1 amp NEB Q6H PRN PRN Reason: ASTHMA Albuterol/Ipratropium (Duoneb -) 1 amp NEB RQID [facility] Last Admin: 03/06/18 07:58 Dose: 1 amp Levofloxacin (Levaquin 500 Mg Premixed Ivpb -) 500 mg in 100 mls @ 100 mls/hr IVPB DAILY [facility]; Protocol Last Admin: 03/06/18 09:34 Dose: 100 mls/hr Lidocaine HCl (Xylocaine 2% Jelly) 1 applic TP Q4H PRN PRN Reason: PAIN FROM ANAL FISSURE Mineral Oil (Fleet Mineral Oil Rectal Enema -) 133 ml [place] DAILY [facility] Stop: 03/07/18 17:59 Last Admin: 03/05/18 10:08 Dose: Not Given Polyethylene Glycol (Miralax (For Daily Use) -) 17 gm PO TID [facility] Stop: 03/07/18 21:59 Last Admin: 03/06/18 07:00 Dose: 17 grams Scopolamine HBr (Transderm-Scop -) 1 patch TD Q3D@1000 [facility] Last Admin: 03/04/18 10:21 Dose: 1 patch - Objective Vital Signs: Vital Signs Temperature 36.3 C L 03/06/18 08:00 Pulse Rate 41 L 03/06/18 08:00 Respiratory Rate 20 03/06/18 08:00 Blood Pressure 105/56 L 03/06/18 08:00 O2 Sat by Pulse Oximetry (%) 97 03/05/18 20:14 Constitutional: Yes: Well Nourished, No Distress Cardiovascular: Yes: Regular Rate and Rhythm. No: Gallop, Murmur, Rub Respiratory: Yes: Regular, Rhonchi. No: CTA Bilaterally, Rales, Wheezes Gastrointestinal: Yes: Normal Bowel Sounds, Soft. No: Distention, Tenderness Extremities: Yes: WNL Edema: No Labs: CBC, BMP 03/06/18 06:00 03/06/18 06:00 INR, PTT INR 1.02 (0.83-1.09) 03/04/18 05:50 Problem List - Problems (1) Hypothermia Code(s): T68.XXXA - HYPOTHERMIA, INITIAL ENCOUNTER Qualifiers: Encounter type: initial encounter Qualified Code(s): T68.XXXA - Hypothermia , initial encounter (2) Fecal impaction in rectum Code(s): K56.41 - FECAL IMPACTION (3) Rectal bleeding Code(s): K62.5 - HEMORRHAGE OF ANUS AND RECTUM (4) Quadriplegia Code(s): G82.50 - QUADRIPLEGIA, UNSPECIFIED (5) Colitis Code(s): K52.9 - NONINFECTIVE GASTROENTERITIS AND COLITIS, UNSPECIFIED (6) Anemia Code(s): D64.9 - ANEMIA, UNSPECIFIED (7) Chronic respiratory failure with hypoxia Code(s): J96.11 - CHRONIC RESPIRATORY FAILURE WITH HYPOXIA (9) Hypokalemia Code(s): E87.6 - HYPOKALEMIA Assessment/Plan -case d/w ID yesterday -continue levaquin -continue bowel regimen -tolerating TF -continue current management -plan for discharge tomorrow
--- NOTE | 2018-03-06 11:24 | PN ---
Progress Note, Physician History of Present Illness: pulmonary comfortable,-resp distress - Current Medication List Current Medications: Active Medications Albuterol Sulfate (Ventolin 0.083% Nebulizer Soln -) 1 amp NEB Q6H PRN PRN Reason: ASTHMA Albuterol/Ipratropium (Duoneb -) 1 amp NEB RQID [facility] Last Admin: 03/06/18 07:58 Dose: 1 amp Levofloxacin (Levaquin 500 Mg Premixed Ivpb -) 500 mg in 100 mls @ 100 mls/hr IVPB DAILY [facility]; Protocol Last Admin: 03/06/18 09:34 Dose: 100 mls/hr Lidocaine HCl (Xylocaine 2% Jelly) 1 applic TP Q4H PRN PRN Reason: PAIN FROM ANAL FISSURE Mineral Oil (Fleet Mineral Oil Rectal Enema -) 133 ml [place] DAILY [facility] Stop: 03/07/18 17:59 Last Admin: 03/05/18 10:08 Dose: Not Given Polyethylene Glycol (Miralax (For Daily Use) -) 17 gm PO TID [facility] Stop: 03/07/18 21:59 Last Admin: 03/06/18 07:00 Dose: 17 grams Scopolamine HBr (Transderm-Scop -) 1 patch TD Q3D@1000 [facility] Last Admin: 03/04/18 10:21 Dose: 1 patch - Objective Vital Signs: Vital Signs Temperature 97.4 F L 03/06/18 08:00 Pulse Rate 41 L 03/06/18 08:00 Respiratory Rate 20 03/06/18 09:00 Blood Pressure 105/56 L 03/06/18 08:00 O2 Sat by Pulse Oximetry (%) 98 03/06/18 09:00 Constitutional: Yes: Calm, Other (contracted) Eyes: Yes: WNL HENT: Yes: Other (microcephalic) Neck: Yes: Supple (trach) Cardiovascular: Yes: Regular Rate and Rhythm, S1, S2 Respiratory: Yes: Rhonchi (few rhonchi) Gastrointestinal: Yes: Normal Bowel Sounds, Soft Extremities: Yes: Other (contracted) Edema: No Labs: CBC, BMP 03/06/18 06:00 03/06/18 06:00 INR, PTT INR 1.02 (0.83-1.09) 03/04/18 05:50 Problem List - Problems (1) Rectal bleeding Code(s): K62.5 - HEMORRHAGE OF ANUS AND RECTUM (2) Chronic respiratory failure with hypoxia Code(s): J96.11 - CHRONIC RESPIRATORY FAILURE WITH HYPOXIA (3) Hypothermia Code(s): T68.XXXA - HYPOTHERMIA, INITIAL ENCOUNTER Qualifiers: Encounter type: initial encounter Qualified Code(s): T68.XXXA - Hypothermia , initial encounter (4) Increased tracheal secretions Code(s): J39.8 - OTHER SPECIFIED DISEASES OF UPPER RESPIRATORY TRACT (6) Quadriplegia Code(s): G82.50 - QUADRIPLEGIA, UNSPECIFIED (7) Respiratory distress Code(s): R06.00 - DYSPNEA, UNSPECIFIED (8) Wheezing Code(s): R06.2 - WHEEZING Assessment/Plan IMP RUL/RLL OPACITIES/HYPOTHERMIA R/O PNEUMONIA,POSSIBLE MALIGNANCY MICROCEPHALY PROFOUND MENTAL RETARDATION CONGENITAL QUADRAPLEGIA S/P TRACH/PEG HEME + STOOLS PLAN IV ABX PER ID INHALED BRONCHODILATORS TRACHEAL SUCTIONING O2 NUTRITIONAL SUPPORT ASPIRATION PRECAUTIONS F/U CHEST CT 6-[address] GORMAN Problem List - Problems (1) Rectal bleeding Code(s): K62.5 - HEMORRHAGE OF ANUS AND RECTUM (2) Chronic respiratory failure with hypoxia Code(s): J96.11 - CHRONIC RESPIRATORY FAILURE WITH HYPOXIA (3) Hypothermia Code(s): T68.XXXA - HYPOTHERMIA, INITIAL ENCOUNTER Qualifiers: Encounter type: initial encounter Qualified Code(s): T68.XXXA - Hypothermia , initial encounter (4) Increased tracheal secretions Code(s): J39.8 - OTHER SPECIFIED DISEASES OF UPPER RESPIRATORY TRACT (6) Quadriplegia Code(s): G82.50 - QUADRIPLEGIA, UNSPECIFIED (7) Respiratory distress Code(s): R06.00 - DYSPNEA, UNSPECIFIED (8) Wheezing Code(s): R06.2 - WHEEZING
[2018-03-07] MEDS: DEXTROSE 5%-WATER - 1,000 ML IV SCH (06:11)
[2018-03-07 07:01] LABS: BASO % 0.5 % (0-2.0); EOS % 3.1 % (0-4.5); HEMATOCRIT 35.1 % (35.4-49); HEMOGLOBIN 11.3 GM/dL (11.7-16.9); LYMPH % 28.7 % (8-40); MCH 30.6 pg (25.7-33.7); MCHC 32.3 g/dl (32.0-35.9); MEAN CELL VOLUME 94.6 fl (80-96); MEAN PLT VOLUME 9.8 fl (7.5-11.1); MONO % 7.8 % (3.8-10.2); NEUT % 59.9 % (42.8-82.8); PLATELET COUNT 180 K/MM3 (134-434); RBC 3.71 M/mm3 (4.00-5.60); WHITE BLOOD COUNT 4.6 K/mm3 (4.0-10.0)
[2018-03-07] MEDS: ALBUTEROL SO4 2.5/IPRATROPIUM 0.5 INH SOL 3 ML VIAL.NEB. NEB SCH ×4 (07:07→19:41)
[2018-03-07 07:26] LABS: ANION GAP 8 MMOL/L (8-16); BLOOD UREA NITROGEN 13 mg/dL (7-18); CALCIUM 9.1 mg/dL (8.5-10.1); CHLORIDE 109 mmol/L (98-107); CO2 27 mmol/L (21-32); CREATININE 0.5 mg/dL (0.55-1.3); GLUCOSE,RANDOM 71 mg/dL (74-106); MAGNESIUM 2.6 mg/dL (1.8-2.4); PHOSPHOROUS 3.6 mg/dL (2.5-4.9); POTASSIUM 3.7 mmol/L (3.5-5.1); SODIUM 144 mmol/L (136-145)
[2018-03-07] MEDS: POLYETHYLENE GLYCOL 3350 119 GM BTL PO SCH ×2 (08:13→13:25)
[2018-03-07] MEDS: SCOPOLAMINE HYDROBROMIDE 1 PATCH PATCH.TD72 TD SCH (09:28)
[2018-03-07] MEDS: MINERAL OIL ENEMA 133 ML ENEMA PR SCH (10:49)
--- NOTE | 2018-03-07 12:06 | PN ---
Progress Note (short form) - Note Progress Note: PULMONARY Pt nonverbal. No fevers recorded. Vital Signs Period Temp Pulse Resp BP Sys/Oropeza Pulse Ox Last 24 Hr 92.3 F-97.4 F 41-50 18-18 101-108/55-74 98 Gen: NAD, trach collar Heart: RRR Lung: decreased breath sounds at the bases Abd: soft, nontender Ext: contracted CBC, BMP 03/07/18 05:50 03/07/18 05:50 Active Medications Albuterol Sulfate (Ventolin 0.083% Nebulizer Soln -) 1 amp NEB Q6H PRN PRN Reason: ASTHMA Albuterol/Ipratropium (Duoneb -) 1 amp NEB RQID [facility] Last Admin: 03/07/18 11:50 Dose: 1 amp Levofloxacin (Levaquin 500 Mg Premixed Ivpb -) 500 mg in 100 mls @ 100 mls/hr IVPB DAILY [facility]; Protocol Last Admin: 03/07/18 09:27 Dose: 100 mls/hr Dextrose (D5w -) 1,000 mls @ 42 mls/hr IV ASDIR [facility] Last Admin: 03/07/18 06:11 Dose: 42 mls/hr Lidocaine HCl (Xylocaine 2% Jelly) 1 applic TP Q4H PRN PRN Reason: PAIN FROM ANAL FISSURE Mineral Oil (Fleet Mineral Oil Rectal Enema -) 133 ml [place] DAILY [facility] Stop: 03/07/18 17:59 Last Admin: 03/07/18 10:49 Dose: 133 ml Polyethylene Glycol (Miralax (For Daily Use) -) 17 gm PO TID [facility] Stop: 03/07/18 21:59 Last Admin: 03/07/18 08:13 Dose: Not Given Scopolamine HBr (Transderm-Scop -) 1 patch TD Q3D@1000 [facility] Last Admin: 03/07/18 09:28 Dose: 1 patch A/P Pneumonia Mental Retardation Functional Quadriplegia Microcephaly - complete antibiotics - aspiration precautions - O2 to keep SpO2 >90% - inhaled bronchodilators - outpt f/u of chest imaging to ensure resolution - DVT prophylaxis
--- NOTE | 2018-03-07 12:45 | PN ---
Progress Note, Physician Chief Complaint: Unable to obtain - Current Medication List Current Medications: Active Medications Albuterol Sulfate (Ventolin 0.083% Nebulizer Soln -) 1 amp NEB Q6H PRN PRN Reason: ASTHMA Albuterol/Ipratropium (Duoneb -) 1 amp NEB RQID [facility] Last Admin: 03/07/18 11:50 Dose: 1 amp Levofloxacin (Levaquin 500 Mg Premixed Ivpb -) 500 mg in 100 mls @ 100 mls/hr IVPB DAILY [facility]; Protocol Last Admin: 03/07/18 09:27 Dose: 100 mls/hr Dextrose (D5w -) 1,000 mls @ 42 mls/hr IV ASDIR [facility] Last Admin: 03/07/18 06:11 Dose: 42 mls/hr Lidocaine HCl (Xylocaine 2% Jelly) 1 applic TP Q4H PRN PRN Reason: PAIN FROM ANAL FISSURE Mineral Oil (Fleet Mineral Oil Rectal Enema -) 133 ml PA DAILY [facility] Stop: 03/07/18 17:59 Last Admin: 03/07/18 10:49 Dose: 133 ml Polyethylene Glycol (Miralax (For Daily Use) -) 17 gm PO TID [facility] Stop: 03/07/18 21:59 Last Admin: 03/07/18 08:13 Dose: Not Given Scopolamine HBr (Transderm-Scop -) 1 patch TD Q3D@1000 [facility] Last Admin: 03/07/18 09:28 Dose: 1 patch - Objective Vital Signs: Vital Signs Temperature 35.7 C L 03/07/18 09:02 Pulse Rate 41 L 03/07/18 09:02 Respiratory Rate 18 03/07/18 09:02 Blood Pressure 107/55 L 03/07/18 09:02 O2 Sat by Pulse Oximetry (%) 98 03/07/18 09:00 Constitutional: Yes: Well Nourished, No Distress, Calm Cardiovascular: Yes: Regular Rate and Rhythm. No: Gallop, Murmur, Rub Respiratory: Yes: Regular, Rhonchi. No: CTA Bilaterally, Rales, Wheezes Gastrointestinal: Yes: Normal Bowel Sounds, Soft. No: Distention, Tenderness Extremities: Yes: WNL Edema: No Labs: CBC, BMP 03/07/18 05:50 03/07/18 05:50 INR, PTT INR 1.02 (0.83-1.09) 03/04/18 05:50 Problem List - Problems (1) Hypothermia Code(s): T68.XXXA - HYPOTHERMIA, INITIAL ENCOUNTER Qualifiers: Encounter type: initial encounter Qualified Code(s): T68.XXXA - Hypothermia , initial encounter (2) Fecal impaction in rectum Code(s): K56.41 - FECAL IMPACTION (3) Rectal bleeding Code(s): K62.5 - HEMORRHAGE OF ANUS AND RECTUM (4) Quadriplegia Code(s): G82.50 - QUADRIPLEGIA, UNSPECIFIED (5) Colitis Code(s): K52.9 - NONINFECTIVE GASTROENTERITIS AND COLITIS, UNSPECIFIED (6) Anemia Code(s): D64.9 - ANEMIA, UNSPECIFIED (7) Chronic respiratory failure with hypoxia Code(s): J96.11 - CHRONIC RESPIRATORY FAILURE WITH HYPOXIA (9) Hypokalemia Code(s): E87.6 - HYPOKALEMIA Assessment/Plan -continue current management -patient stable -d/w ID about duration of levaquin -PEG tube clogged today -consult IR for replacement -once replaced, discharge back to facility
[2018-03-08] MEDS: DEXTROSE 5%-WATER - 1,000 ML IV SCH (06:00)
[2018-03-08 06:37] LABS: BASO % 0.5 % (0-2.0); EOS % 1.8 % (0-4.5); HEMATOCRIT 35.7 % (35.4-49); HEMOGLOBIN 11.6 GM/dL (11.7-16.9); LYMPH % 32.5 % (8-40); MCH 30.6 pg (25.7-33.7); MCHC 32.6 g/dl (32.0-35.9); MEAN CELL VOLUME 93.9 fl (80-96); MEAN PLT VOLUME 9.3 fl (7.5-11.1); MONO % 11.7 % (3.8-10.2); NEUT % 53.5 % (42.8-82.8); PLATELET COUNT 223 K/MM3 (134-434); RDW 16.6 % (11.9-15.9); WHITE BLOOD COUNT 4.3 K/mm3 (4.0-10.0)
[2018-03-08 07:01] LABS: ANION GAP 12 MMOL/L (8-16); BLOOD UREA NITROGEN 9 mg/dL (7-18); CALCIUM 8.8 mg/dL (8.5-10.1); CHLORIDE 105 mmol/L (98-107); CO2 26 mmol/L (21-32); CREATININE 0.7 mg/dL (0.55-1.3); GLUCOSE,RANDOM 70 mg/dL (74-106); MAGNESIUM 2.1 mg/dL (1.8-2.4); PHOSPHOROUS 2.9 mg/dL (2.5-4.9); POTASSIUM 3.7 mmol/L (3.5-5.1); SODIUM 143 mmol/L (136-145)
[2018-03-08] MEDS: ALBUTEROL SO4 2.5/IPRATROPIUM 0.5 INH SOL 3 ML VIAL.NEB. NEB SCH ×4 (08:13→20:37)
--- NOTE | 2018-03-08 12:55 | PN ---
Progress Note, Physician History of Present Illness: pulmonary awake,less congested,low grade temp - Current Medication List Current Medications: Active Medications Albuterol Sulfate (Ventolin 0.083% Nebulizer Soln -) 1 amp NEB Q6H PRN PRN Reason: ASTHMA Albuterol/Ipratropium (Duoneb -) 1 amp NEB RQID [facility] Last Admin: 03/08/18 12:07 Dose: 1 amp Levofloxacin (Levaquin 500 Mg Premixed Ivpb -) 500 mg in 100 mls @ 100 mls/hr IVPB DAILY [facility]; Protocol Last Admin: 03/08/18 09:03 Dose: 100 mls/hr Dextrose (D5w -) 1,000 mls @ 42 mls/hr IV ASDIR [facility] Last Admin: 03/08/18 06:00 Dose: 42 mls/hr Lidocaine HCl (Xylocaine 2% Jelly) 1 applic TP Q4H PRN PRN Reason: PAIN FROM ANAL FISSURE Scopolamine HBr (Transderm-Scop -) 1 patch TD Q3D@1000 [facility] Last Admin: 03/07/18 09:28 Dose: 1 patch - Objective Vital Signs: Vital Signs Temperature 100 F H 03/08/18 09:00 Pulse Rate 93 H 03/08/18 10:37 Respiratory Rate 16 03/08/18 10:37 Blood Pressure 99/59 L 03/08/18 10:37 O2 Sat by Pulse Oximetry (%) 93 L 03/08/18 10:37 Constitutional: Yes: Calm, Other (comtracted) Eyes: Yes: WNL HENT: Yes: WNL Neck: Yes: Supple (trach) Cardiovascular: Yes: Regular Rate and Rhythm, S1, S2 Respiratory: Yes: Rhonchi (scattered rhonchi) Gastrointestinal: Yes: Normal Bowel Sounds, Soft Extremities: Yes: Other (contracted) Edema: No Labs: CBC, BMP 03/08/18 06:00 03/08/18 06:00 INR, PTT INR 1.02 (0.83-1.09) 03/04/18 05:50 Problem List - Problems (1) Rectal bleeding Code(s): K62.5 - HEMORRHAGE OF ANUS AND RECTUM (2) Chronic respiratory failure with hypoxia Code(s): J96.11 - CHRONIC RESPIRATORY FAILURE WITH HYPOXIA (3) Hypothermia Code(s): T68.XXXA - HYPOTHERMIA, INITIAL ENCOUNTER Qualifiers: Encounter type: initial encounter Qualified Code(s): T68.XXXA - Hypothermia , initial encounter (4) Increased tracheal secretions Code(s): J39.8 - OTHER SPECIFIED DISEASES OF UPPER RESPIRATORY TRACT (6) Quadriplegia Code(s): G82.50 - QUADRIPLEGIA, UNSPECIFIED (7) Respiratory distress Code(s): R06.00 - DYSPNEA, UNSPECIFIED (8) Wheezing Code(s): R06.2 - WHEEZING Assessment/Plan IMP RUL/RLL OPACITIES/HYPOTHERMIA R/O PNEUMONIA,POSSIBLE MALIGNANCY MICROCEPHALY PROFOUND MENTAL RETARDATION CONGENITAL QUADRAPLEGIA S/P TRACH/PEG HEME + STOOLS PLAN IV ABX PER ID INHALED BRONCHODILATORS TRACHEAL SUCTIONING O2 NUTRITIONAL SUPPORT ASPIRATION PRECAUTIONS F/U CHEST CT 6-[address] GORMAN Problem List - Problems (1) Rectal bleeding Code(s): K62.5 - HEMORRHAGE OF ANUS AND RECTUM (2) Chronic respiratory failure with hypoxia Code(s): J96.11 - CHRONIC RESPIRATORY FAILURE WITH HYPOXIA (3) Hypothermia Code(s): T68.XXXA - HYPOTHERMIA, INITIAL ENCOUNTER Qualifiers: Encounter type: initial encounter Qualified Code(s): T68.XXXA - Hypothermia , initial encounter (4) Increased tracheal secretions Code(s): J39.8 - OTHER SPECIFIED DISEASES OF UPPER RESPIRATORY TRACT (6) Quadriplegia Code(s): G82.50 - QUADRIPLEGIA, UNSPECIFIED (7) Respiratory distress Code(s): R06.00 - DYSPNEA, UNSPECIFIED (8) Wheezing Code(s): R06.2 - WHEEZING
--- NOTE | 2018-03-08 16:43 | PN ---
Progress Note, Physician Chief Complaint: Unable to obtain - Current Medication List Current Medications: Active Medications Albuterol Sulfate (Ventolin 0.083% Nebulizer Soln -) 1 amp NEB Q6H PRN PRN Reason: ASTHMA Albuterol/Ipratropium (Duoneb -) 1 amp NEB RQID [facility] Last Admin: 03/08/18 16:26 Dose: 1 amp Levofloxacin (Levaquin 500 Mg Premixed Ivpb -) 500 mg in 100 mls @ 100 mls/hr IVPB DAILY [facility]; Protocol Last Admin: 03/08/18 09:03 Dose: 100 mls/hr Dextrose (D5w -) 1,000 mls @ 42 mls/hr IV ASDIR [facility] Last Admin: 03/08/18 06:00 Dose: 42 mls/hr Lidocaine HCl (Xylocaine 2% Jelly) 1 applic TP Q4H PRN PRN Reason: PAIN FROM ANAL FISSURE Scopolamine HBr (Transderm-Scop -) 1 patch TD Q3D@1000 [facility] Last Admin: 03/07/18 09:28 Dose: 1 patch - Objective Vital Signs: Vital Signs Temperature 37.1 C 03/08/18 13:33 Pulse Rate 86 03/08/18 13:33 Respiratory Rate 20 03/08/18 13:33 Blood Pressure 98/59 L 03/08/18 13:33 O2 Sat by Pulse Oximetry (%) 93 L 03/08/18 10:37 Constitutional: Yes: Well Nourished, No Distress, Calm Cardiovascular: Yes: Regular Rate and Rhythm. No: Gallop, Murmur, Rub Respiratory: Yes: Regular, Rhonchi. No: CTA Bilaterally, Rales, Wheezes Gastrointestinal: Yes: Normal Bowel Sounds, Soft. No: Distention, Tenderness Extremities: Yes: WNL Edema: No Labs: CBC, BMP 03/08/18 06:00 03/08/18 06:00 INR, PTT INR 1.02 (0.83-1.09) 03/04/18 05:50 Problem List - Problems (1) Hypothermia Code(s): T68.XXXA - HYPOTHERMIA, INITIAL ENCOUNTER Qualifiers: Encounter type: initial encounter Qualified Code(s): T68.XXXA - Hypothermia , initial encounter (2) Fecal impaction in rectum Code(s): K56.41 - FECAL IMPACTION (3) Rectal bleeding Code(s): K62.5 - HEMORRHAGE OF ANUS AND RECTUM (4) Quadriplegia Code(s): G82.50 - QUADRIPLEGIA, UNSPECIFIED (5) Colitis Code(s): K52.9 - NONINFECTIVE GASTROENTERITIS AND COLITIS, UNSPECIFIED (6) Anemia Code(s): D64.9 - ANEMIA, UNSPECIFIED (7) Chronic respiratory failure with hypoxia Code(s): J96.11 - CHRONIC RESPIRATORY FAILURE WITH HYPOXIA (9) Hypokalemia Code(s): E87.6 - HYPOKALEMIA Assessment/Plan -continue levaquin -continue current management -PEG tube replaced -TF restarted -cannot go back to [facility] until trach collar is below 5L -titrate oxygen and discharge back when below 5L -ID and pulmonary following
--- NOTE | 2018-03-08 18:29 | PN ---
Progress Note (short form) - Note Progress Note: 2 large BM's yesterday per nursing G-Tube replaced today MiraLAX 17g BID Senna liquid nightly Monitor manually for progressing impactions Problem List - Problems (1) Fecal impaction in rectum Code(s): K56.41 - FECAL IMPACTION
[2018-03-08] MEDS ORDERED: PT OWN MED DRAWER 7, Y5N ONE (20:58)
[2018-03-08] MEDS: POLYETHYLENE GLYCOL 3350 119 GM BTL GT SCH (21:30)
[2018-03-08] MEDS: SENNOSIDES 8.8 MG/5 ML BULK BOTTLE GT SCH (21:31)
[2018-03-08] MEDS ORDERED: POLYETHYLENE GLYCOL 3350 119 GM BTL PO SCH (22:00)
[2018-03-09] MEDS: DEXTROSE 5%-WATER - 1,000 ML IV SCH (07:26)
[2018-03-09] MEDS: ALBUTEROL SO4 2.5/IPRATROPIUM 0.5 INH SOL 3 ML VIAL.NEB. NEB SCH ×3 (07:55→16:06)
[2018-03-09] MEDS: POLYETHYLENE GLYCOL 3350 119 GM BTL GT SCH ×2 (09:19→21:44)
--- NOTE | 2018-03-09 12:37 | PN ---
Progress Note, Physician History of Present Illness: PULMONARY AWAKE,EYES OPEN ,-RESP DISTRESS - Current Medication List Current Medications: Active Medications Albuterol/Ipratropium (Duoneb -) 1 amp NEB RQID [facility] Last Admin: 03/09/18 07:55 Dose: 1 amp Levofloxacin (Levaquin 500 Mg Premixed Ivpb -) 500 mg in 100 mls @ 100 mls/hr IVPB DAILY [facility]; Protocol Last Admin: 03/09/18 09:17 Dose: 100 mls/hr Dextrose (D5w -) 1,000 mls @ 42 mls/hr IV ASDIR [facility] Last Admin: 03/09/18 07:26 Dose: Not Given Lidocaine HCl (Xylocaine 2% Jelly) 1 applic TP Q4H PRN PRN Reason: PAIN FROM ANAL FISSURE Polyethylene Glycol (Miralax (For Daily Use) -) 17 gm GT BID [facility] Last Admin: 03/09/18 09:19 Dose: 17 gm Scopolamine HBr (Transderm-Scop -) 1 patch TD Q3D@1000 [facility] Last Admin: 03/07/18 09:28 Dose: 1 patch Senna (Senna Oral Solution -) 8.8 mg GT HS [facility] Last Admin: 03/08/18 21:31 Dose: 8.8 mg - Objective Vital Signs: Vital Signs Temperature 97.8 F 03/09/18 10:00 Pulse Rate 67 03/09/18 10:00 Respiratory Rate 20 03/09/18 10:00 Blood Pressure 122/61 03/09/18 10:00 O2 Sat by Pulse Oximetry (%) 100 03/09/18 09:00 Constitutional: Yes: Calm, Thin Eyes: Yes: WNL HENT: Yes: WNL Neck: Yes: Supple Cardiovascular: Yes: Regular Rate and Rhythm, S1, S2 Respiratory: Yes: Rhonchi (SCATTERED RHONCHI) Gastrointestinal: Yes: Normal Bowel Sounds, Soft Extremities: Yes: Shortened, Other (CONTRACTED) Edema: No Labs: CBC, BMP 03/08/18 06:00 Problem List - Problems (1) Rectal bleeding Code(s): K62.5 - HEMORRHAGE OF ANUS AND RECTUM (2) Chronic respiratory failure with hypoxia Code(s): J96.11 - CHRONIC RESPIRATORY FAILURE WITH HYPOXIA (3) Hypothermia Code(s): T68.XXXA - HYPOTHERMIA, INITIAL ENCOUNTER Qualifiers: Encounter type: initial encounter Qualified Code(s): T68.XXXA - Hypothermia , initial encounter (4) Increased tracheal secretions Code(s): J39.8 - OTHER SPECIFIED DISEASES OF UPPER RESPIRATORY TRACT (6) Quadriplegia Code(s): G82.50 - QUADRIPLEGIA, UNSPECIFIED (7) Respiratory distress Code(s): R06.00 - DYSPNEA, UNSPECIFIED (8) Wheezing Code(s): R06.2 - WHEEZING Assessment/Plan IMP RUL/RLL OPACITIES/HYPOTHERMIA R/O PNEUMONIA,POSSIBLE MALIGNANCY MICROCEPHALY PROFOUND MENTAL RETARDATION CONGENITAL QUADRAPLEGIA S/P TRACH/PEG HEME + STOOLS PLAN IV ABX PER ID INHALED BRONCHODILATORS TRACHEAL SUCTIONING O2 NUTRITIONAL SUPPORT ASPIRATION PRECAUTIONS F/U CHEST CT 6-[address] GORMAN Problem List - Problems (1) Rectal bleeding Code(s): K62.5 - HEMORRHAGE OF ANUS AND RECTUM (2) Chronic respiratory failure with hypoxia Code(s): J96.11 - CHRONIC RESPIRATORY FAILURE WITH HYPOXIA (3) Hypothermia Code(s): T68.XXXA - HYPOTHERMIA, INITIAL ENCOUNTER Qualifiers: Encounter type: initial encounter Qualified Code(s): T68.XXXA - Hypothermia , initial encounter (4) Increased tracheal secretions Code(s): J39.8 - OTHER SPECIFIED DISEASES OF UPPER RESPIRATORY TRACT (6) Quadriplegia Code(s): G82.50 - QUADRIPLEGIA, UNSPECIFIED (7) Respiratory distress Code(s): R06.00 - DYSPNEA, UNSPECIFIED (8) Wheezing Code(s): R06.2 - WHEEZING
--- NOTE | 2018-03-09 14:14 | PN ---
Progress Note, Physician Chief Complaint: NONE - Current Medication List Current Medications: Active Medications Albuterol/Ipratropium (Duoneb -) 1 amp NEB RQID [facility] Last Admin: 03/09/18 07:55 Dose: 1 amp Levofloxacin (Levaquin 500 Mg Premixed Ivpb -) 500 mg in 100 mls @ 100 mls/hr IVPB DAILY [facility]; Protocol Last Admin: 03/09/18 09:17 Dose: 100 mls/hr Dextrose (D5w -) 1,000 mls @ 42 mls/hr IV ASDIR [facility] Last Admin: 03/09/18 07:26 Dose: Not Given Lidocaine HCl (Xylocaine 2% Jelly) 1 applic TP Q4H PRN PRN Reason: PAIN FROM ANAL FISSURE Polyethylene Glycol (Miralax (For Daily Use) -) 17 gm GT BID [facility] Last Admin: 03/09/18 09:19 Dose: 17 gm Scopolamine HBr (Transderm-Scop -) 1 patch TD Q3D@1000 [facility] Last Admin: 03/07/18 09:28 Dose: 1 patch Senna (Senna Oral Solution -) 8.8 mg GT HS [facility] Last Admin: 03/08/18 21:31 Dose: 8.8 mg - Objective Vital Signs: Vital Signs Temperature 97.8 F 03/09/18 10:00 Pulse Rate 67 03/09/18 10:00 Respiratory Rate 20 03/09/18 10:00 Blood Pressure 122/61 03/09/18 10:00 O2 Sat by Pulse Oximetry (%) 100 03/09/18 09:00 HENT: Yes: Other (ON TRACH COLLAR) Psychiatric: Yes: Alert (but not oriented. Non verbal at baseline.) Labs: CBC, BMP 03/08/18 06:00 03/08/18 06:00 INR, PTT INR 1.02 (0.83-1.09) 03/04/18 05:50 Problem List - Problems (1) Atony of colon Code(s): K59.8 - OTHER SPECIFIED FUNCTIONAL INTESTINAL DISORDERS (2) Chronic respiratory failure with hypoxia Code(s): J96.11 - CHRONIC RESPIRATORY FAILURE WITH HYPOXIA (3) DVT prophylaxis Code(s): [id number] - (4) Quadriplegia Code(s): G82.50 - QUADRIPLEGIA, UNSPECIFIED Impression/Plan Impression/Plan: The patient remains comfortable. PEG tube replaced. Tolerating tube feed. Awaiting downsizing Trach collar pending placement back. Visit type - Emergency Visit Emergency Visit: Yes ED Registration Date: 03/04/18 Care time: The patient presented to the Emergency Department on the above date and was hospitalized for further evaluation of their emergent condition. - New Patient This patient is new to me today: Yes Date on this admission: 03/09/18 - Critical Care Critical Care patient: No
[2018-03-09] MEDS ORDERED: PT OWN MED DRAWER 7, Y5N ONE (20:52)
[2018-03-09] MEDS: SENNOSIDES 8.8 MG/5 ML BULK BOTTLE GT SCH (21:44)
[2018-03-10] MEDS: POLYETHYLENE GLYCOL 3350 119 GM BTL GT SCH ×2 (09:07→22:37)
[2018-03-10] MEDS: SCOPOLAMINE HYDROBROMIDE 1 PATCH PATCH.TD72 TD SCH (09:07)
--- NOTE | 2018-03-10 10:48 | PN ---
Physical Exam: SUBJECTIVE: Patient seen and examined at bedside. No overnight events. No events on monitor. Patient non verbal . OBJECTIVE: Vital Signs Period Temp Pulse Resp BP Sys/Oropeza Pulse Ox Last 24 Hr 98.2 F-98.4 F 69-83 18-20 114-130/63-72 98 GENERAL: non verbal , NAD NECK: Trachea midline, full range of motion, supple. LUNGS:scattered rhonchi. HEART: RRR, S1, S2 without murmur, rub or gallop. ABDOMEN: Soft, nontender, nondistended, normoactive bowel sounds, PEG in place. EXTREMITIES: 2+ pulses, warm, well-perfused, no edema. Contracted. Laboratory Results - last 24 hr 03/09/18 03/09/18 03/10/18 12:08 18:12 00:00 POC Glucometer 85 140 124 03/10/18 06:13 POC Glucometer 113 Active Medications Generic Name Dose Route Start Last Admin Trade Name Freq PRN Reason Stop Dose Admin Levofloxacin 500 mg in 100 mls @ 100 mls/hr 03/05/18 10:00 03/10/18 09:07 Levaquin 500 Mg Premixed Ivpb - IVPB 100 mls/hr DAILY [facility] Administration Protocol Dextrose 1,000 mls @ 42 mls/hr 03/07/18 05:45 03/09/18 07:26 D5w - IV Not Given ASDIR [facility] Lidocaine HCl 1 applic 03/04/18 02:35 Xylocaine 2% Jelly TP Q4H PRN PAIN FROM ANAL FISSURE Polyethylene Glycol 17 gm 03/08/18 22:00 03/10/18 09:07 Miralax (For Daily Use) - GT 17 gm BID [facility] Administration Scopolamine HBr 1 patch 03/04/18 10:00 03/10/18 09:07 Transderm-Scop - TD 1 patch Q3D@1000 [facility] Administration Senna 8.8 mg 03/08/18 22:00 03/09/18 21:44 Senna Oral Solution - GT 8.8 mg HS [facility] Administration ASSESSMENT/PLAN: 47 year old male, resident of [facility], was sent to the ED for evaluation of blood in the stool and hypothermia. Problem List - Problems (1) Chronic respiratory failure with hypoxia Assessment/Plan: * Tracheal suctioning. * supplemental 02 PRN mainatain SpO2 >90% * aspiration precautions * F/U CHEST CT 6-8 WKS * Levofloxacin 500 mg in 100 mls @ 100 mls/hr IVPB DAILY (2) Fecal impaction in rectum Assessment/Plan: * GI consult appreciated. * G-Tube replaced yesterday * MiraLAX 17g BID * Senna liquid nightly * Monitor manually for progressing impactions (3) Quadriplegia (4) Rectal bleeding Visit type - Emergency Visit Emergency Visit: Yes ED Registration Date: 03/04/18 Care time: The patient presented to the Emergency Department on the above date and was hospitalized for further evaluation of their emergent condition. - New Patient This patient is new to me today: Yes Date on this admission: 03/11/18 - Critical Care Critical Care patient: No
--- NOTE | 2018-03-10 11:01 | PN ---
Progress Note, Physician History of Present Illness: pulmonary awake,-resp distress - Current Medication List Current Medications: Active Medications Levofloxacin (Levaquin 500 Mg Premixed Ivpb -) 500 mg in 100 mls @ 100 mls/hr IVPB DAILY [facility]; Protocol Last Admin: 03/10/18 09:07 Dose: 100 mls/hr Dextrose (D5w -) 1,000 mls @ 42 mls/hr IV ASDIR [facility] Last Admin: 03/09/18 07:26 Dose: Not Given Lidocaine HCl (Xylocaine 2% Jelly) 1 applic TP Q4H PRN PRN Reason: PAIN FROM ANAL FISSURE Polyethylene Glycol (Miralax (For Daily Use) -) 17 gm GT BID [facility] Last Admin: 03/10/18 09:07 Dose: 17 gm Scopolamine HBr (Transderm-Scop -) 1 patch TD Q3D@1000 [facility] Last Admin: 03/10/18 09:07 Dose: 1 patch Senna (Senna Oral Solution -) 8.8 mg GT HS [facility] Last Admin: 03/09/18 21:44 Dose: 8.8 mg - Objective Vital Signs: Vital Signs Temperature 98.3 F 03/10/18 02:00 Pulse Rate 69 03/10/18 02:00 Respiratory Rate 20 03/10/18 02:00 Blood Pressure 114/70 03/10/18 02:00 O2 Sat by Pulse Oximetry (%) 98 03/09/18 20:34 Constitutional: Yes: Calm, Thin, Other (contracted) Eyes: Yes: WNL HENT: Yes: WNL Neck: Yes: Supple (trach) Cardiovascular: Yes: Regular Rate and Rhythm, S1, S2 Respiratory: Yes: Rhonchi (few rhonchi) Gastrointestinal: Yes: Normal Bowel Sounds, Soft Extremities: Yes: Shortened, Other (contracted) Labs: CBC, BMP Problem List - Problems (1) Rectal bleeding Code(s): K62.5 - HEMORRHAGE OF ANUS AND RECTUM (2) Chronic respiratory failure with hypoxia Code(s): J96.11 - CHRONIC RESPIRATORY FAILURE WITH HYPOXIA (3) Hypothermia Code(s): T68.XXXA - HYPOTHERMIA, INITIAL ENCOUNTER Qualifiers: Encounter type: initial encounter Qualified Code(s): T68.XXXA - Hypothermia , initial encounter (4) Increased tracheal secretions Code(s): J39.8 - OTHER SPECIFIED DISEASES OF UPPER RESPIRATORY TRACT (6) Quadriplegia Code(s): G82.50 - QUADRIPLEGIA, UNSPECIFIED (7) Respiratory distress Code(s): R06.00 - DYSPNEA, UNSPECIFIED (8) Wheezing Code(s): R06.2 - WHEEZING Assessment/Plan IMP RUL/RLL OPACITIES MICROCEPHALY PROFOUND MENTAL RETARDATION CONGENITAL QUADRAPLEGIA S/P TRACH/PEG HEME + STOOLS PLAN ABX PER ID INHALED BRONCHODILATORS TRACHEAL SUCTIONING O2 NUTRITIONAL SUPPORT ASPIRATION PRECAUTIONS F/U CHEST CT 6-[address] GORMAN Problem List - Problems (1) Rectal bleeding Code(s): K62.5 - HEMORRHAGE OF ANUS AND RECTUM (2) Chronic respiratory failure with hypoxia Code(s): J96.11 - CHRONIC RESPIRATORY FAILURE WITH HYPOXIA (3) Hypothermia Code(s): T68.XXXA - HYPOTHERMIA, INITIAL ENCOUNTER Qualifiers: Encounter type: initial encounter Qualified Code(s): T68.XXXA - Hypothermia , initial encounter (4) Increased tracheal secretions Code(s): J39.8 - OTHER SPECIFIED DISEASES OF UPPER RESPIRATORY TRACT (6) Quadriplegia Code(s): G82.50 - QUADRIPLEGIA, UNSPECIFIED (7) Respiratory distress Code(s): R06.00 - DYSPNEA, UNSPECIFIED (8) Wheezing Code(s): R06.2 - WHEEZING
--- NOTE | 2018-03-10 14:19 | PN ---
Teaching Attending Note Name of Resident: Rome Britton ATTENDING PHYSICIAN STATEMENT I saw and evaluated the patient. I reviewed the resident's note and discussed the case with the resident. I agree with the resident's findings and plan as documented. SUBJECTIVE:resting comfortbale OBJECTIVE: Last Vital Signs Temp Pulse Resp BP Pulse Ox 98.0 F 66 20 131/74 99 03/10/18 10:00 03/10/18 10:00 03/10/18 10:00 03/10/18 10:00 03/10/18 10:00 General NAD CV S1 S2 RRR no murmur/rub/gallop Lungs decreased breath sounds R base anteriorly. unable to roll patient Extremities all contracted ASSESSMENT AND PLAN: 47 with a PMHx of profound MR, microcephalus, congenital quadriplegia, seizure disorder, optic n atrophy, encephalic cyst, kyphoscoliosis, sleep apnea, osteoporosis, dermatitis, recurrent tracheitis, undescended testicle, hypothermia, bilateral renal stones,with trach/PEG, bedbound/wheelchair, nonverbal, brought in from [place] and currently hospitalized for acute on chronic respiratory failure and dislodeged PEG tube 1. Acute on chronic respiratory failure- due to bronchitis. currently saturating 99% 35% trach collar. request respiratory to reduce supplemental oxygen to maintain spO2 >90%. +copious secretions. will repeat CXR. CHest PT BID , on levaquin day 6. need to reduce supplemental oxygen for pt to return to [place] 2. Dislodged PEG tube- corrected. tolerating PEG feeds. will d/c IVF 3. Mental retardation 4. plan to return to [place] once medically optimized
[2018-03-10] MEDS ORDERED: PT OWN MED DRAWER 7, Y5N ONE (21:58)
[2018-03-10] MEDS: SENNOSIDES 8.8 MG/5 ML BULK BOTTLE GT SCH (22:37)
[2018-03-11 06:55] LABS: BASO % 0.7 % (0-2.0); EOS % 4.7 % (0-4.5); HEMOGLOBIN 10.7 GM/dL (11.7-16.9); LYMPH % 37.6 % (8-40); MCH 31.6 pg (25.7-33.7); MCHC 33.5 g/dl (32.0-35.9); MEAN CELL VOLUME 94.4 fl (80-96); MEAN PLT VOLUME 8.9 fl (7.5-11.1); MONO % 12.8 % (3.8-10.2); NEUT % 44.2 % (42.8-82.8); PLATELET COUNT 272 K/MM3 (134-434); RBC 3.39 M/mm3 (4.00-5.60); RDW 16.8 % (11.9-15.9); WHITE BLOOD COUNT 5.1 K/mm3 (4.0-10.0)
[2018-03-11 07:31] LABS: ALBUMIN 2.7 g/dl (3.4-5.0); ALK PHOS 157 U/L (45-117); ANION GAP 6 MMOL/L (8-16); BILIRUBIN,TOTAL 0.2 mg/dL (0.2-1); BLOOD UREA NITROGEN 19 mg/dL (7-18); CALCIUM 8.7 mg/dL (8.5-10.1); CHLORIDE 104 mmol/L (98-107); CO2 33 mmol/L (21-32); CREATININE 0.6 mg/dL (0.55-1.3); GLUCOSE,RANDOM 96 mg/dL (74-106); POTASSIUM 3.6 mmol/L (3.5-5.1); SGOT/AST 52 U/L (15-37); SGPT/ALT 47 U/L (13-61); SODIUM 143 mmol/L (136-145); TOT PROT 6.9 g/dl (6.4-8.2)
[2018-03-11] MEDS: DEXTROSE 5%-WATER - 1,000 ML IV SCH (09:07)
[2018-03-11] MEDS: POLYETHYLENE GLYCOL 3350 119 GM BTL GT SCH ×2 (09:08→21:20)
--- NOTE | 2018-03-11 12:27 | PN ---
Progress Note, Physician History of Present Illness: pulmonary awake,no distress,-congestion - Current Medication List Current Medications: Active Medications Levofloxacin (Levaquin 500 Mg Premixed Ivpb -) 500 mg in 100 mls @ 100 mls/hr IVPB DAILY [facility]; Protocol Last Admin: 03/11/18 09:08 Dose: 100 mls/hr Lidocaine HCl (Xylocaine 2% Jelly) 1 applic TP Q4H PRN PRN Reason: PAIN FROM ANAL FISSURE Polyethylene Glycol (Miralax (For Daily Use) -) 17 gm GT BID [facility] Last Admin: 03/11/18 09:08 Dose: 17 gm Scopolamine HBr (Transderm-Scop -) 1 patch TD Q3D@1000 [facility] Last Admin: 03/10/18 09:07 Dose: 1 patch Senna (Senna Oral Solution -) 8.8 mg GT HS [facility] Last Admin: 03/10/18 22:37 Dose: 8.8 mg - Objective Vital Signs: Vital Signs Temperature 97.9 F 03/11/18 10:00 Pulse Rate 58 L 03/11/18 10:00 Respiratory Rate 18 03/11/18 10:00 Blood Pressure 103/68 03/11/18 10:00 O2 Sat by Pulse Oximetry (%) 99 03/10/18 21:00 Constitutional: Yes: Calm, Thin Eyes: Yes: WNL HENT: Yes: WNL Neck: Yes: Supple (trach) Cardiovascular: Yes: Regular Rate and Rhythm, S1, S2 Respiratory: Yes: Rhonchi (few rhonchi) Gastrointestinal: Yes: Normal Bowel Sounds, Soft Extremities: Yes: Shortened, Other (contracted) Edema: No Labs: CBC, BMP 03/11/18 06:00 03/11/18 06:00 INR, PTT INR 1.02 (0.83-1.09) 03/04/18 05:50 Problem List - Problems (1) Rectal bleeding Code(s): K62.5 - HEMORRHAGE OF ANUS AND RECTUM (2) Chronic respiratory failure with hypoxia Code(s): J96.11 - CHRONIC RESPIRATORY FAILURE WITH HYPOXIA (3) Hypothermia Code(s): T68.XXXA - HYPOTHERMIA, INITIAL ENCOUNTER Qualifiers: Encounter type: initial encounter Qualified Code(s): T68.XXXA - Hypothermia , initial encounter (4) Increased tracheal secretions Code(s): J39.8 - OTHER SPECIFIED DISEASES OF UPPER RESPIRATORY TRACT (6) Quadriplegia Code(s): G82.50 - QUADRIPLEGIA, UNSPECIFIED (7) Respiratory distress Code(s): R06.00 - DYSPNEA, UNSPECIFIED (8) Wheezing Code(s): R06.2 - WHEEZING Assessment/Plan IMP RUL/RLL OPACITIES MICROCEPHALY PROFOUND MENTAL RETARDATION CONGENITAL QUADRAPLEGIA S/P TRACH/PEG HEME + STOOLS PLAN ABX PER ID INHALED BRONCHODILATORS TRACHEAL SUCTIONING O2 NUTRITIONAL SUPPORT ASPIRATION PRECAUTIONS F/U CHEST CT 6-8 WKS CHEST X-RAY TODAY DR GORMAN Problem List - Problems (1) Rectal bleeding Code(s): K62.5 - HEMORRHAGE OF ANUS AND RECTUM (2) Chronic respiratory failure with hypoxia Code(s): J96.11 - CHRONIC RESPIRATORY FAILURE WITH HYPOXIA (3) Hypothermia Code(s): T68.XXXA - HYPOTHERMIA, INITIAL ENCOUNTER Qualifiers: Encounter type: initial encounter Qualified Code(s): T68.XXXA - Hypothermia , initial encounter (4) Increased tracheal secretions Code(s): J39.8 - OTHER SPECIFIED DISEASES OF UPPER RESPIRATORY TRACT (6) Quadriplegia Code(s): G82.50 - QUADRIPLEGIA, UNSPECIFIED (7) Respiratory distress Code(s): R06.00 - DYSPNEA, UNSPECIFIED (8) Wheezing Code(s): R06.2 - WHEEZING
--- NOTE | 2018-03-11 14:32 | PN ---
Teaching Attending Note Name of Resident: Rome Britton ATTENDING PHYSICIAN STATEMENT I saw and evaluated the patient. I reviewed the resident's note and discussed the case with the resident. I agree with the resident's findings and plan as documented. SUBJECTIVE: He is no distress at this time, he is AWAKE,none verbal, has been afebrile OBJECTIVE: Non verbal,not communicating trached on trach collar in no distress MMM No ocular discharge CVS:S1S2 Lungs:He is S/P suctioning and has clear breath sounds EXT: no edema, has small, contracted extremities no new focal neuralgic deficits CBCD WBC 5.1 K/mm3 (4.0-10.0) 03/11/18 06:00 RBC 3.39 M/mm3 (4.00-5.60) L 03/11/18 06:00 Hgb 10.7 GM/dL (11.7-16.9) L 03/11/18 06:00 Hct 32.0 % (35.4-49) L 03/11/18 06:00 MCV 94.4 fl (80-96) 03/11/18 06:00 MCHC 33.5 g/dl (32.0-35.9) 03/11/18 06:00 RDW 16.8 % (11.9-15.9) H 03/11/18 06:00 Plt Count 272 K/MM3 (134-434) D 03/11/18 06:00 MPV 8.9 fl (7.5-11.1) 03/11/18 06:00 CMP Sodium 143 mmol/L (136-145) 03/11/18 06:00 Potassium 3.6 mmol/L (3.5-5.1) 03/11/18 06:00 Chloride 104 mmol/L (98-107) 03/11/18 06:00 Carbon Dioxide 33 mmol/L (21-32) H 03/11/18 06:00 Anion Gap 6 MMOL/L (8-16) L 03/11/18 06:00 BUN 19 mg/dL (7-18) H 03/11/18 06:00 Creatinine 0.6 mg/dL (0.55-1.3) 03/11/18 06:00 Creat Clearance w eGFR > 60 (>60) 03/11/18 06:00 Calcium 8.7 mg/dL (8.5-10.1) 03/11/18 06:00 Total Bilirubin 0.2 mg/dL (0.2-1) 03/11/18 06:00 AST 52 U/L (15-37) H 03/11/18 06:00 ALT 47 U/L (13-61) 03/11/18 06:00 Alkaline Phosphatase 157 U/L (45-117) H 03/11/18 06:00 Total Protein 6.9 g/dl (6.4-8.2) 03/11/18 06:00 Albumin 2.7 g/dl (3.4-5.0) L 03/11/18 06:00 ASSESSMENT AND PLAN: 47 M nonverbal W profound MR, microcephalus,trached and PegED, trachcolar, recurrent tracheitis, bedbound/wheelchair, brought in from [place] and currently hospitalized for acute on chronic respiratory failure in the setting of another bronchitis and dislodeged PEG tube. Bronchitis with increased mucus production: HAS Scopolamine, been treated with levofloxacin for klebsiealla in sputum, last dose tomorrow. Will try to decrease the O2 need for Dispo Will CW/ albuterol PRN Will ask for pulmonology consult as he is still having a lot of secretions Will ask from respiratory for ABG Anemia: normocytic- normochromic anemia, likely in the setting of chronic disease. Will send retic count, Iron studies Eosinophilia:Will Malnutrition: low albumin,( possible in the setting of infection), KAYLIE, anemia: will ask nutrition service to further evaluate the patient. constipation with anal fissure: c/w BOWEL REGIMEN Per notes by ID he is hypothermic, he is also bradycardic, will send TFTs. Dispo: back to the [place] Diet: PEG feeding: will ask nutrition for their recs FC ASPIRATION PERCUSSION DVT PPX: lOVENOX SQ Current Medications Generic Name Dose Route Start Last Admin Trade Name Freq PRN Reason Stop Dose Admin Levofloxacin 500 mg in 100 mls @ 100 mls/hr 03/05/18 10:00 03/11/18 09:08 Levaquin 500 Mg Premixed Ivpb - IVPB 100 mls/hr DAILY [facility] Administration Protocol Lidocaine HCl 1 applic 03/04/18 02:35 Xylocaine 2% Jelly TP Q4H PRN PAIN FROM ANAL FISSURE Polyethylene Glycol 17 gm 03/08/18 22:00 03/11/18 09:08 Miralax (For Daily Use) - GT 17 gm BID [facility] Administration Scopolamine HBr 1 patch 03/04/18 10:00 03/10/18 09:07 Transderm-Scop - TD 1 patch Q3D@1000 [facility] Administration Senna 8.8 mg 03/08/18 22:00 03/10/18 22:37 Senna Oral Solution - GT 8.8 mg HS [facility] Administration congenital quadriplegia, seizure disorder, optic notrophy, encephalic cyst, kyphoscoliosis, sleep apnea, osteoporosis, dermatitis,undescended testicle, hypothermia, bilateral renal stones; Will C/W rest of his home medication: Home Medications Medication Instructions Recorded Albuterol 0.083% Nebulizer Mami 1 neb NEB QID PRN 01/29/16 [Ventolin 0.083% Nebulizer Soln -] Baclofen 10 mg GT TID 01/29/16 Calcium Carbonate/Vitamin D3 2 tab GT HS 01/29/16 [Oystercal-D 500 mg-400 Unit Tb] Cholecalciferol (Vitamin D3) 2,000 unit GT HS 01/29/16 [Vitamin D3] Lubiprostone [Amitiza] 24 mcg GT BID 01/29/16 Mag Carb/Aluminum Hydrox/Algin 5 ml GT TID 01/29/16 [Riginic Suspension] Magnesium Hydrox 2400MG/30Ml [Milk 30 ml GT HS 01/29/16 of Magnesia -] Sennosides [Senna] 10 ml GT DAILY 01/29/16 Simethicone 40 mg GT TID 01/29/16 Bisacodyl Suppository [Dulcolax 10 mg RC ASDIR PRN 03/04/18 Suppository -] [place]-3/Dha/Epa/Fish Oil [Fish Oil 1,000 mg GT BID 03/04/18 1,600 mg/5 ml Liquid] Scopolamine [Transderm-Scop] 1 patch.72h TD ASDIR 03/04/18 Albuterol 2.5/Ipratropium 0.5 1 amp NEB RQID amp 03/08/18 [Duoneb -] Levofloxacin [Levaquin] 500 mg PEG DAILY #7 tablet 11/20/18 Mineral Oil Enema [Fleet Mineral 133 ml PA DAILY enema 03/08/18 Oil Rectal Enema -] Polyethylene Glycol 3350 [Miralax 17 gm PO BID bottle 03/08/18 119 gm Btl -]
--- NOTE | 2018-03-11 17:29 | PN ---
Physical Exam: SUBJECTIVE: Patient seen and examined at bedside. No overnight events. No events on monitor. Patient non verbal . OBJECTIVE: Vital Signs Period Temp Pulse Resp BP Sys/Oropeza Pulse Ox Last 24 Hr 98.2 F-98.4 F 69-83 18-20 114-130/63-72 98 GENERAL: non verbal , NAD NECK: Trachea midline, full range of motion, supple. LUNGS:scattered rhonchi. HEART: RRR, S1, S2 without murmur, rub or gallop. ABDOMEN: Soft, nontender, nondistended, normoactive bowel sounds, PEG in place. EXTREMITIES: 2+ pulses, warm, well-perfused, no edema. Contracted. Laboratory Results - last 24 hr 03/10/18 03/11/18 03/11/18 17:35 01:49 06:00 WBC 5.1 RBC 3.39 L Hgb 10.7 L Hct 32.0 L MCV 94.4 MCH 31.6 MCHC 33.5 RDW 16.8 H Plt Count 272 D MPV 8.9 Absolute Neuts (auto) 2.3 Neutrophils % 44.2 Lymphocytes % 37.6 Monocytes % 12.8 H Eosinophils % 4.7 H D Basophils % 0.7 Nucleated RBC % 0 Sodium Potassium Chloride Carbon Dioxide Anion Gap BUN Creatinine Creat Clearance w eGFR POC Glucometer 106 118 Random Glucose Calcium Total Bilirubin AST ALT Alkaline Phosphatase Total Protein Albumin 03/11/18 03/11/18 03/11/18 06:00 06:03 12:32 WBC RBC Hgb Hct MCV MCH MCHC RDW Plt Count MPV Absolute Neuts (auto) Neutrophils % Lymphocytes % Monocytes % Eosinophils % Basophils % Nucleated RBC % Sodium 143 Potassium 3.6 Chloride 104 Carbon Dioxide 33 H Anion Gap 6 L BUN 19 H Creatinine 0.6 Creat Clearance w eGFR > 60 POC Glucometer 105 92 Random Glucose 96 Calcium 8.7 Total Bilirubin 0.2 AST 52 H ALT 47 Alkaline Phosphatase 157 H Total Protein 6.9 Albumin 2.7 L Active Medications Generic Name Dose Route Start Last Admin Trade Name Freq PRN Reason Stop Dose Admin Levofloxacin 500 mg in 100 mls @ 100 mls/hr 03/05/18 10:00 03/11/18 09:08 Levaquin 500 Mg Premixed Ivpb - IVPB 100 mls/hr DAILY [facility] Administration Protocol Lidocaine HCl 1 applic 03/04/18 02:35 Xylocaine 2% Jelly TP Q4H PRN PAIN FROM ANAL FISSURE Polyethylene Glycol 17 gm 03/08/18 22:00 03/11/18 09:08 Miralax (For Daily Use) - GT 17 gm BID [facility] Administration Scopolamine HBr 1 patch 03/04/18 10:00 03/10/18 09:07 Transderm-Scop - TD 1 patch Q3D@1000 [facility] Administration Senna 8.8 mg 03/08/18 22:00 03/10/18 22:37 Senna Oral Solution - GT 8.8 mg HS [facility] Administration ASSESSMENT/PLAN: 47 year old male, resident of [facility], was sent to the ED for evaluation of blood in the stool and hypothermia. Problem List - Problems (1) Chronic respiratory failure with hypoxia Assessment/Plan: * Tracheal suctioning. * supplemental 02 PRN mainatain SpO2 >90% * aspiration precautions * F/U CHEST CT 6-8 WKS * Levofloxacin 500 mg in 100 mls @ 100 mls/hr IVPB DAILY (2) Fecal impaction in rectum Assessment/Plan: * GI consult appreciated. * G-Tube replaced * MiraLAX 17g BID * Senna liquid nightly * Monitor manually for progressing impactions (3) Quadriplegia (4) Rectal bleeding Visit type - Emergency Visit Emergency Visit: Yes ED Registration Date: 03/04/18 Care time: The patient presented to the Emergency Department on the above date and was hospitalized for further evaluation of their emergent condition. - New Patient This patient is new to me today: No - Critical Care Critical Care patient: No
[2018-03-11] MEDS ORDERED: PT OWN MED DRAWER 7, Y5N ONE (21:16)
[2018-03-11] MEDS: SENNOSIDES 8.8 MG/5 ML BULK BOTTLE GT SCH (21:21)
[2018-03-12 07:13] LABS: BASO % 0.4 % (0-2.0); EOS % 1.5 % (0-4.5); HEMATOCRIT 35.3 % (35.4-49); HEMOGLOBIN 11.5 GM/dL (11.7-16.9); LYMPH % 23.8 % (8-40); MCH 30.8 pg (25.7-33.7); MCHC 32.6 g/dl (32.0-35.9); MEAN CELL VOLUME 94.5 fl (80-96); MEAN PLT VOLUME 8.7 fl (7.5-11.1); MONO % 10.1 % (3.8-10.2); NEUT % 64.2 % (42.8-82.8); PLATELET COUNT 345 K/MM3 (134-434); RBC 3.73 M/mm3 (4.00-5.60); RDW 16.6 % (11.9-15.9); WHITE BLOOD COUNT 8.1 K/mm3 (4.0-10.0)
[2018-03-12 07:46] LABS: ALBUMIN 2.9 g/dl (3.4-5.0); ALK PHOS 202 U/L (45-117); ANION GAP 9 MMOL/L (8-16); BILIRUBIN,TOTAL 0.4 mg/dL (0.2-1); BLOOD UREA NITROGEN 16 mg/dL (7-18); CALCIUM 8.5 mg/dL (8.5-10.1); CHLORIDE 106 mmol/L (98-107); CO2 30 mmol/L (21-32); CREATININE 0.7 mg/dL (0.55-1.3); GLUCOSE,RANDOM 100 mg/dL (74-106); POTASSIUM 3.5 mmol/L (3.5-5.1); SGOT/AST 178 U/L (15-37); SGPT/ALT 67 U/L (13-61); SODIUM 144 mmol/L (136-145); TOT PROT 7.5 g/dl (6.4-8.2)
[2018-03-12] MEDS: POLYETHYLENE GLYCOL 3350 119 GM BTL GT SCH ×2 (10:02→21:14)
--- NOTE | 2018-03-12 14:52 | PN ---
Progress Note (short form) - Note Progress Note: PULMONARY Pt nonverbal. No fevers recorded. Vital Signs Period Temp Pulse Resp BP Sys/Oropeza Pulse Ox Last 24 Hr 97.9 F-99.4 F 78-99 18-18 109-125/66-78 96-96 Gen: NAD, trach collar Heart: RRR Lung: decreased breath sounds at the bases Abd: soft, nontender Ext: contracted CBC, BMP 03/12/18 06:40 03/12/18 06:40 Active Medications Levofloxacin (Levaquin 500 Mg Premixed Ivpb -) 500 mg in 100 mls @ 100 mls/hr IVPB DAILY [facility]; Protocol Last Admin: 03/12/18 10:02 Dose: 100 mls/hr Lidocaine HCl (Xylocaine 2% Jelly) 1 applic TP Q4H PRN PRN Reason: PAIN FROM ANAL FISSURE Polyethylene Glycol (Miralax (For Daily Use) -) 17 gm GT BID [facility] Last Admin: 03/12/18 10:02 Dose: 17 gm Scopolamine HBr (Transderm-Scop -) 1 patch TD Q3D@1000 [facility] Last Admin: 03/10/18 09:07 Dose: 1 patch Senna (Senna Oral Solution -) 8.8 mg GT HS [facility] Last Admin: 03/11/18 21:21 Dose: 8.8 mg A/P Pneumonia Mental Retardation Functional Quadriplegia Microcephaly - complete antibiotics - aspiration precautions - O2 to keep SpO2 >90% - inhaled bronchodilators - outpt f/u of chest imaging to ensure resolution - DVT prophylaxis
--- NOTE | 2018-03-12 17:06 | PN ---
Physical Exam: SUBJECTIVE: Patient seen and examined OBJECTIVE: Vital Signs Period Temp Pulse Resp BP Sys/Oropeza Pulse Ox Last 24 Hr 97.9 F-99.4 F 78-99 18-18 111-125/67-78 96-96 SUBJECTIVE: He is no distress at this time, he is AWAKE,none verbal, has been afebrile OBJECTIVE: Non verbal,not communicating trached on trach collar in no distress MMM No ocular discharge CVS:S1S2 Lungs:He is S/P suctioning and has clear breath sounds EXT: no edema, has small, contracted extremities no new focal neuralgic deficits Laboratory Results - last 24 hr 03/11/18 03/12/18 03/12/18 23:12 05:48 06:40 WBC 8.1 RBC 3.73 L Hgb 11.5 L Hct 35.3 L MCV 94.5 MCH 30.8 MCHC 32.6 RDW 16.6 H Plt Count 345 D MPV 8.7 Absolute Neuts (auto) 5.2 Neutrophils % 64.2 D Lymphocytes % 23.8 D Monocytes % 10.1 Eosinophils % 1.5 Basophils % 0.4 Nucleated RBC % 0 Sodium Potassium Chloride Carbon Dioxide Anion Gap BUN Creatinine Creat Clearance w eGFR POC Glucometer 117 118 Random Glucose Calcium Total Bilirubin AST ALT Alkaline Phosphatase Total Protein Albumin 03/12/18 03/12/18 06:40 12:19 WBC RBC Hgb Hct MCV MCH MCHC RDW Plt Count MPV Absolute Neuts (auto) Neutrophils % Lymphocytes % Monocytes % Eosinophils % Basophils % Nucleated RBC % Sodium 144 Potassium 3.5 Chloride 106 Carbon Dioxide 30 Anion Gap 9 BUN 16 Creatinine 0.7 Creat Clearance w eGFR > 60 POC Glucometer 116 Random Glucose 100 Calcium 8.5 Total Bilirubin 0.4 AST 178 H ALT 67 H Alkaline Phosphatase 202 H Total Protein 7.5 Albumin 2.9 L Active Medications Generic Name Dose Route Start Last Admin Trade Name Freq PRN Reason Stop Dose Admin Levofloxacin 500 mg in 100 mls @ 100 mls/hr 03/05/18 10:00 03/12/18 10:02 Levaquin 500 Mg Premixed Ivpb - IVPB 100 mls/hr DAILY [facility] Administration Protocol Lidocaine HCl 1 applic 03/04/18 02:35 Xylocaine 2% Jelly TP Q4H PRN PAIN FROM ANAL FISSURE Polyethylene Glycol 17 gm 03/08/18 22:00 03/12/18 10:02 Miralax (For Daily Use) - GT 17 gm BID [facility] Administration Scopolamine HBr 1 patch 03/04/18 10:00 03/10/18 09:07 Transderm-Scop - TD 1 patch Q3D@1000 [facility] Administration Senna 8.8 mg 03/08/18 22:00 03/11/18 21:21 Senna Oral Solution - GT 8.8 mg HS [facility] Administration ASSESSMENT/PLAN: 47 M nonverbal W profound MR, microcephalus,trached and PegED, trachcolar, recurrent tracheitis, bedbound/wheelchair, brought in from [place] and currently hospitalized for acute on chronic respiratory failure in the setting of another bronchitis and dislodeged PEG tube. Bronchitis with increased mucus production: HAS Scopolamine, been treated with levofloxacin for klebsiealla in sputum, last dose tomorrow. Will try to decrease the O2 need for Dispo Will CW/ albuterol PRN Will ask for pulmonology consult as he is still having a lot of secretions Will ask from respiratory for ABG Anemia: normocytic- normochromic anemia, likely in the setting of chronic disease. Will send retic count, Iron studies Eosinophilia:Will Malnutrition: low albumin,( possible in the setting of infection), KAYLIE, anemia: will ask nutrition service to further evaluate the patient. constipation with anal fissure: c/w BOWEL REGIMEN Per notes by ID he is hypothermic, he is also bradycardic, will send TFTs. Dispo: back to the [place] Diet: PEG feeding: will ask nutrition for their recs FC ASPIRATION PERCUSSION DVT PPX: lOVENOX SQ Visit type - Emergency Visit Emergency Visit: Yes ED Registration Date: 03/04/18 Care time: The patient presented to the Emergency Department on the above date and was hospitalized for further evaluation of their emergent condition. - New Patient This patient is new to me today: No - Critical Care Critical Care patient: No - Discharge Referral Referred to [facility] Med P.C.: No
[2018-03-12] MEDS: SENNOSIDES 8.8 MG/5 ML BULK BOTTLE GT SCH (21:14)
[2018-03-13] MEDS: IBUPROFEN 800 MG/8 ML IJ IVPB ONE ×2 (02:31→02:39)
[2018-03-13] MEDS ORDERED: IBUPROFEN 800 MG/8 ML IJ IVPB ONE (02:45)
[2018-03-13 02:50] LABS: URINE APPEARANCE CLOUDY; URINE BILIRUBIN NEGATIVE (<2.0 mg/dL); URINE COLOR YELLOW; URINE GLUCOSE (UA) NEGATIVE (NEGATIVE); URINE KETONE NEGATIVE (NEGATIVE); URINE LEUK ESTERASE TRACE (NEGATIVE); URINE NITRITE NEGATIVE (NEGATIVE); URINE PROTEIN NEGATIVE (NEGATIVE)
[2018-03-13 03:02] LABS: CALCIUM OXALATE CRYSTALS MANY /hpf (NONE SEEN); EPI CELLS MANY /HPF (FEW); URINE BACTERIA MANY /hpf (NONE SEEN); URINE MUCUS MANY
[2018-03-13] MEDS: POLYETHYLENE GLYCOL 3350 119 GM BTL GT SCH ×2 (10:04→21:14)
[2018-03-13] MEDS: SCOPOLAMINE HYDROBROMIDE 1 PATCH PATCH.TD72 TD SCH (10:06)
--- NOTE | 2018-03-13 13:58 | PN ---
Progress Note (short form) - Note Progress Note: PULMONARY Pt nonverbal. No fevers recorded. Vital Signs Period Temp Pulse Resp BP Sys/Oropeza Pulse Ox Last 24 Hr 97.7 F-101.4 F 66-82 18-18 102-126/52-79 96-96 Gen: NAD, trach collar Heart: RRR Lung: decreased breath sounds at the bases Abd: soft, nontender Ext: contracted CBC, BMP 03/12/18 06:40 03/12/18 06:40 Active Medications Levofloxacin (Levaquin 500 Mg Premixed Ivpb -) 500 mg in 100 mls @ 100 mls/hr IVPB DAILY [facility]; Protocol Last Admin: 03/13/18 10:06 Dose: 100 mls/hr Lidocaine HCl (Xylocaine 2% Jelly) 1 applic TP Q4H PRN PRN Reason: PAIN FROM ANAL FISSURE Polyethylene Glycol (Miralax (For Daily Use) -) 17 gm GT BID [facility] Last Admin: 03/13/18 10:04 Dose: 17 gm Scopolamine HBr (Transderm-Scop -) 1 patch TD Q3D@1000 [facility] Last Admin: 03/13/18 10:06 Dose: 1 patch Senna (Senna Oral Solution -) 8.8 mg GT HS [facility] Last Admin: 03/12/18 21:14 Dose: 8.8 mg A/P Pneumonia Mental Retardation Functional Quadriplegia Microcephaly - complete antibiotics - aspiration precautions - O2 to keep SpO2 >90% - inhaled bronchodilators - outpt f/u of chest imaging to ensure resolution - DVT prophylaxis
--- NOTE | 2018-03-13 15:53 | PN ---
Physical Exam: SUBJECTIVE: Patient seen and examined OBJECTIVE: Vital Signs Period Temp Pulse Resp BP Sys/Oropeza Pulse Ox Last 24 Hr 97.7 F-101.4 F 66-83 18-18 102-126/52-79 96-96 He is no distress at this time, he is AWAKE,none verbal, has been afebrile OBJECTIVE: Non verbal,not communicating trached on trach collar in no distress MMM No ocular discharge CVS:S1S2 Lungs:He is S/P suctioning and has clear breath sounds EXT: no edema, has small, contracted extremities no new focal neuralgic deficits Laboratory Results - last 24 hr 03/12/18 03/12/18 03/13/18 17:20 21:24 02:31 POC Glucometer 115 143 Urine Color Yellow Urine Appearance Cloudy Urine pH 7.0 Ur Specific [place] 1.016 Urine Protein Negative Urine Glucose (UA) Negative Urine Ketones Negative Urine Blood Negative Urine Nitrite Negative Urine Bilirubin Negative Urine Urobilinogen 2.0 Ur Leukocyte Esterase Trace Urine WBC (Auto) 293 Urine RBC (Auto) 163 Ur Epithelial Cells Many Calcium Oxalate Crystal Many Urine Bacteria Many Urine Mucus Many 03/13/18 03/13/18 05:36 11:47 POC Glucometer 131 114 Urine Color Urine Appearance Urine pH Ur Specific [place] Urine Protein Urine Glucose (UA) Urine Ketones Urine Blood Urine Nitrite Urine Bilirubin Urine Urobilinogen Ur Leukocyte Esterase Urine WBC (Auto) Urine RBC (Auto) Ur Epithelial Cells Calcium Oxalate Crystal Urine Bacteria Urine Mucus Active Medications Generic Name Dose Route Start Last Admin Trade Name Freq PRN Reason Stop Dose Admin Levofloxacin 500 mg in 100 mls @ 100 mls/hr 03/05/18 10:00 03/13/18 10:06 Levaquin 500 Mg Premixed Ivpb - IVPB 100 mls/hr DAILY [facility] Administration Protocol Lidocaine HCl 1 applic 03/04/18 02:35 Xylocaine 2% Jelly TP Q4H PRN PAIN FROM ANAL FISSURE Polyethylene Glycol 17 gm 03/08/18 22:00 03/13/18 10:04 Miralax (For Daily Use) - GT 17 gm BID [facility] Administration Scopolamine HBr 1 patch 03/04/18 10:00 03/13/18 10:06 Transderm-Scop - TD 1 patch Q3D@1000 [facility] Administration Senna 8.8 mg 03/08/18 22:00 03/12/18 21:14 Senna Oral Solution - GT 8.8 mg HS [facility] Administration ASSESSMENT/PLAN: 47 M nonverbal W profound MR, microcephalus,trached and PegED, trachcolar, recurrent tracheitis, bedbound/wheelchair, brought in from [place] and currently hospitalized for acute on chronic respiratory failure in the setting of another bronchitis and dislodeged PEG tube. Bronchitis with increased mucus production: HAS Scopolamine, been treated with levofloxacin for klebsiealla in sputum, last dose tomorrow. Will try to decrease the O2 need for Dispo Will CW/ albuterol PRN Will ask for pulmonology consult as he is still having a lot of secretions Will ask from respiratory for ABG Anemia: normocytic- normochromic anemia, likely in the setting of chronic disease. Will send retic count, Iron studies Eosinophilia:Will Malnutrition: low albumin,( possible in the setting of infection), KAYLIE, anemia: will ask nutrition service to further evaluate the patient. constipation with anal fissure: c/w BOWEL REGIMEN Per notes by ID he is hypothermic, he is also bradycardic, will send TFTs. Dispo: back to the [place] tomorrow Diet: PEG feeding: will ask nutrition for their recs FC ASPIRATION PERCUSSION DVT PPX: lOVENOX SQ Visit type - Emergency Visit Emergency Visit: Yes ED Registration Date: 03/04/18 Care time: The patient presented to the Emergency Department on the above date and was hospitalized for further evaluation of their emergent condition. - New Patient This patient is new to me today: No - Critical Care Critical Care patient: No - Discharge Referral Referred to [facility] Med P.C.: No
[2018-03-13] MEDS ORDERED: PT OWN MED DRAWER 7, Y5N ONE (21:12)
[2018-03-13] MEDS: SENNOSIDES 8.8 MG/5 ML BULK BOTTLE GT SCH (21:14)
[2018-03-14 06:40] LABS: BASO % 0.5 % (0-2.0); EOS % 1.9 % (0-4.5); HEMATOCRIT 32.6 % (35.4-49); HEMOGLOBIN 10.7 GM/dL (11.7-16.9); LYMPH % 17.5 % (8-40); MCH 31.3 pg (25.7-33.7); MCHC 32.9 g/dl (32.0-35.9); MEAN CELL VOLUME 94.9 fl (80-96); MEAN PLT VOLUME 8.8 fl (7.5-11.1); MONO % 9.2 % (3.8-10.2); NEUT % 70.9 % (42.8-82.8); PLATELET COUNT 350 K/MM3 (134-434); RBC 3.44 M/mm3 (4.00-5.60); RDW 16.2 % (11.9-15.9); WHITE BLOOD COUNT 9.2 K/mm3 (4.0-10.0)
[2018-03-14 07:46] LABS: ANION GAP 7 MMOL/L (8-16); BLOOD UREA NITROGEN 16 mg/dL (7-18); CALCIUM 8.8 mg/dL (8.5-10.1); CHLORIDE 105 mmol/L (98-107); CO2 31 mmol/L (21-32); CREATININE 0.6 mg/dL (0.55-1.3); GLUCOSE,RANDOM 121 mg/dL (74-106); POTASSIUM 3.4 mmol/L (3.5-5.1); SODIUM 143 mmol/L (136-145)
--- NOTE | 2018-03-14 09:40 | PN ---
Progress Note, Physician Chief Complaint: non verbal no over night event - Current Medication List Current Medications: Active Medications Levofloxacin (Levaquin 500 Mg Premixed Ivpb -) 500 mg in 100 mls @ 100 mls/hr IVPB DAILY [facility]; Protocol Last Admin: 03/13/18 10:06 Dose: 100 mls/hr Lidocaine HCl (Xylocaine 2% Jelly) 1 applic TP Q4H PRN PRN Reason: PAIN FROM ANAL FISSURE Polyethylene Glycol (Miralax (For Daily Use) -) 17 gm GT BID [facility] Last Admin: 03/13/18 21:14 Dose: 17 gm Scopolamine HBr (Transderm-Scop -) 1 patch TD Q3D@1000 [facility] Last Admin: 03/13/18 10:06 Dose: 1 patch Senna (Senna Oral Solution -) 8.8 mg GT HS [facility] Last Admin: 03/13/18 21:14 Dose: 8.8 mg - Objective Vital Signs: Vital Signs Temperature 97.8 F 03/14/18 06:17 Pulse Rate 74 03/14/18 06:17 Respiratory Rate 20 03/14/18 06:17 Blood Pressure 129/59 L 03/14/18 06:17 O2 Sat by Pulse Oximetry (%) 95 03/13/18 21:00 Not on distress alert non verbal HEENT: Mm moist, no anemia NECK: Trach at place CHEST: Occasional crepts CVS: s1S2 R no m/g/r ABD: No distention s/p PEG EXT: Contracture, no edema CLINICAL PSYCHIATRIST: Non verbal bed bound severe MR Labs: CBC, BMP 03/14/18 06:00 03/14/18 06:00 INR, PTT INR 1.02 (0.83-1.09) 03/04/18 05:50 Problem List - Problems (1) Acute and chronic respiratory failure Assessment/Plan: Patient is on trach collar present with worsening hypoxioa with excessive secretion treated with Scopolamine and Levofloxacin still need Fio2 28% will F/ U with Pulmonary to optimize Fio2 to lower concentration cont IV abx Code(s): J96.20 - ACUTE AND CHR RESP FAILURE, UNSP W HYPOXIA OR HYPERCAPNIA Qualifiers: Respiratory failure complication: hypoxia Qualified Code(s): J96.21 - Acute and chronic respiratory failure with hypoxia (2) Profound mental retardation Assessment/Plan: Chronic (3) Hypokalemia Assessment/Plan: Replete K F/U BMP Code(s): E87.6 - HYPOKALEMIA (4) Purulent bronchitis Assessment/Plan: Sputum Grew KP on Levofloxacin Code(s): J41.1 - MUCOPURULENT CHRONIC BRONCHITIS
[2018-03-14] MEDS: POLYETHYLENE GLYCOL 3350 119 GM BTL GT SCH ×3 (09:51→22:09)
[2018-03-14] MEDS ORDERED: POTASSIUM CHLORIDE ORAL LIQUID 20 MEQ/15 ML PO ONE (10:20)
--- NOTE | 2018-03-14 11:28 | PN ---
Progress Note, Physician History of Present Illness: pulmonary awake,-resp distress, low grade temp 100.6. O2 sat 94% on ra - Current Medication List Current Medications: Active Medications Levofloxacin (Levaquin 500 Mg Premixed Ivpb -) 500 mg in 100 mls @ 100 mls/hr IVPB DAILY [facility]; Protocol Last Admin: 03/13/18 10:06 Dose: 100 mls/hr Lidocaine HCl (Xylocaine 2% Jelly) 1 applic TP Q4H PRN PRN Reason: PAIN FROM ANAL FISSURE Polyethylene Glycol (Miralax (For Daily Use) -) 17 gm GT BID [facility] Last Admin: 03/13/18 21:14 Dose: 17 gm Scopolamine HBr (Transderm-Scop -) 1 patch TD Q3D@1000 [facility] Last Admin: 03/13/18 10:06 Dose: 1 patch Senna (Senna Oral Solution -) 8.8 mg GT HS [facility] Last Admin: 03/13/18 21:14 Dose: 8.8 mg - Objective Vital Signs: Vital Signs Temperature 100.6 F H 03/14/18 09:39 Pulse Rate 90 03/14/18 09:39 Respiratory Rate 20 03/14/18 09:39 Blood Pressure 109/66 03/14/18 09:39 O2 Sat by Pulse Oximetry (%) 95 03/13/18 21:00 Constitutional: Yes: Calm, Thin Eyes: Yes: WNL HENT: Yes: WNL Neck: Yes: Supple (TRACH) Cardiovascular: Yes: Regular Rate and Rhythm, S1, S2 Respiratory: Yes: Rhonchi (SCATTERED RHONCHI) Gastrointestinal: Yes: Normal Bowel Sounds, Soft Extremities: Yes: Shortened, Other (CONTRACTED) Labs: CBC, BMP 03/14/18 06:00 03/14/18 06:00 INR, PTT INR 1.02 (0.83-1.09) 03/04/18 05:50 Problem List - Problems (1) Rectal bleeding Code(s): K62.5 - HEMORRHAGE OF ANUS AND RECTUM (2) Chronic respiratory failure with hypoxia Code(s): J96.11 - CHRONIC RESPIRATORY FAILURE WITH HYPOXIA (3) Hypothermia Code(s): T68.XXXA - HYPOTHERMIA, INITIAL ENCOUNTER Qualifiers: Encounter type: initial encounter Qualified Code(s): T68.XXXA - Hypothermia , initial encounter (4) Increased tracheal secretions Code(s): J39.8 - OTHER SPECIFIED DISEASES OF UPPER RESPIRATORY TRACT (6) Quadriplegia Code(s): G82.50 - QUADRIPLEGIA, UNSPECIFIED (7) Respiratory distress Code(s): R06.00 - DYSPNEA, UNSPECIFIED (8) Wheezing Code(s): R06.2 - WHEEZING Assessment/Plan IMP RUL/RLL OPACITIES MICROCEPHALY PROFOUND MENTAL RETARDATION CONGENITAL QUADRAPLEGIA S/P TRACH/PEG HEME + STOOLS PLAN INHALED BRONCHODILATORS TRACHEAL SUCTIONING O2 NUTRITIONAL SUPPORT ASPIRATION PRECAUTIONS F/U CHEST CT 6-[address] GORMAN Problem List - Problems (1) Rectal bleeding Code(s): K62.5 - HEMORRHAGE OF ANUS AND RECTUM (2) Chronic respiratory failure with hypoxia Code(s): J96.11 - CHRONIC RESPIRATORY FAILURE WITH HYPOXIA (3) Hypothermia Code(s): T68.XXXA - HYPOTHERMIA, INITIAL ENCOUNTER Qualifiers: Encounter type: initial encounter Qualified Code(s): T68.XXXA - Hypothermia , initial encounter (4) Increased tracheal secretions Code(s): J39.8 - OTHER SPECIFIED DISEASES OF UPPER RESPIRATORY TRACT (6) Quadriplegia Code(s): G82.50 - QUADRIPLEGIA, UNSPECIFIED (7) Respiratory distress Code(s): R06.00 - DYSPNEA, UNSPECIFIED (8) Wheezing Code(s): R06.2 - WHEEZING
[2018-03-14] MEDS ORDERED: ACETAMINOPHEN 650 MG/20.3 ML ORAL SOLUTION (CUPS) PEG ONE (13:20)
[2018-03-14] MEDS ORDERED: ACETAMINOPHEN 650 MG/20.3 ML ORAL SOLUTION (CUPS) PO PRN (16:53)
[2018-03-14] MEDS ORDERED: PT OWN MED DRAWER 7, Y5N ONE (21:44)
[2018-03-14] MEDS: SENNOSIDES 8.8 MG/5 ML BULK BOTTLE GT SCH (22:09)
[2018-03-15 07:09] LABS: BASO % 0.8 % (0-2.0); EOS % 3.1 % (0-4.5); HEMATOCRIT 32.4 % (35.4-49); HEMOGLOBIN 10.8 GM/dL (11.7-16.9); MCH 31.6 pg (25.7-33.7); MCHC 33.2 g/dl (32.0-35.9); MEAN CELL VOLUME 95.2 fl (80-96); MONO % 9.7 % (3.8-10.2); NEUT % 55.4 % (42.8-82.8); PLATELET COUNT 394 K/MM3 (134-434); RBC 3.41 M/mm3 (4.00-5.60); RDW 16.1 % (11.9-15.9); WHITE BLOOD COUNT 7.4 K/mm3 (4.0-10.0)
[2018-03-15 07:13] LABS: ANION GAP 6 MMOL/L (8-16); BLOOD UREA NITROGEN 16 mg/dL (7-18); CALCIUM 8.5 mg/dL (8.5-10.1); CHLORIDE 107 mmol/L (98-107); CO2 30 mmol/L (21-32); CREATININE 0.6 mg/dL (0.55-1.3); GLUCOSE,RANDOM 108 mg/dL (74-106); POTASSIUM 3.6 mmol/L (3.5-5.1); SODIUM 143 mmol/L (136-145)
--- NOTE | 2018-03-15 07:32 | PN ---
Progress Note, Physician Chief Complaint: non verbal no over night event, low grade fever desats off O2 - Current Medication List Current Medications: Active Medications Acetaminophen (Tylenol Oral Solution -) 650 mg PO Q6H PRN PRN Reason: FEVER Levofloxacin (Levaquin 500 Mg Premixed Ivpb -) 500 mg in 100 mls @ 100 mls/hr IVPB DAILY [facility]; Protocol Last Admin: 03/14/18 12:24 Dose: 100 mls/hr Lidocaine HCl (Xylocaine 2% Jelly) 1 applic TP Q4H PRN PRN Reason: PAIN FROM ANAL FISSURE Polyethylene Glycol (Miralax (For Daily Use) -) 17 gm GT BID [facility] Last Admin: 03/14/18 22:09 Dose: 17 gm Scopolamine HBr (Transderm-Scop -) 1 patch TD Q3D@1000 TARIQ Last Admin: 03/13/18 10:06 Dose: 1 patch Senna (Senna Oral Solution -) 8.8 mg GT HS [facility] Last Admin: 03/14/18 22:09 Dose: 8.8 mg - Objective Vital Signs: Vital Signs Temperature 97.4 F L 03/15/18 05:00 Pulse Rate 88 03/15/18 05:00 Respiratory Rate 20 03/15/18 05:00 Blood Pressure 104/68 03/15/18 05:00 O2 Sat by Pulse Oximetry (%) 95 03/14/18 21:00 Not on distress alert non verbal HEENT: Mm moist, no anemia NECK: Trach at place CHEST: Occasional crepts CVS: s1S2 R no m/g/r ABD: No distention s/p PEG EXT: Contracture, no edema [employer]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 bed bound severe MR Labs: CBC, BMP 03/15/18 06:00 INR, PTT INR 1.02 (0.83-1.09) 03/04/18 05:50 Problem List - Problems (1) Acute and chronic respiratory failure Assessment/Plan: Patient is on trach collar present with worsening hypoxoa with excessive secretion treated with Scopolamine and Levofloxacin still need O2 to maintain O2 sat will cont abx, F/U CXR, will be Dc to Code(s): J96.20 - ACUTE AND CHR RESP FAILURE, UNSP W HYPOXIA OR HYPERCAPNIA Qualifiers: Respiratory failure complication: hypoxia Qualified Code(s): J96.21 - Acute and chronic respiratory failure with hypoxia (2) Profound mental retardation Assessment/Plan: Chronic (3) Hypokalemia Assessment/Plan: Resolved Code(s): E87.6 - HYPOKALEMIA (4) Purulent bronchitis Assessment/Plan: Sputum Grew KP on Levofloxacin will F/U chest X yani Code(s): J41.1 - MUCOPURULENT CHRONIC BRONCHITIS
[2018-03-15] MEDS: POLYETHYLENE GLYCOL 3350 119 GM BTL GT SCH ×2 (10:50→21:37)
--- NOTE | 2018-03-15 11:57 | PN ---
Progress Note, Physician History of Present Illness: pulmonary awake,-resp distress,low grade temp - Current Medication List Current Medications: Active Medications Acetaminophen (Tylenol Oral Solution -) 650 mg PO Q6H PRN PRN Reason: FEVER Levofloxacin (Levaquin 500 Mg Premixed Ivpb -) 500 mg in 100 mls @ 100 mls/hr IVPB DAILY [facility]; Protocol Last Admin: 03/14/18 12:24 Dose: 100 mls/hr Lidocaine HCl (Xylocaine 2% Jelly) 1 applic TP Q4H PRN PRN Reason: PAIN FROM ANAL FISSURE Polyethylene Glycol (Miralax (For Daily Use) -) 17 gm GT BID [facility] Last Admin: 03/14/18 22:09 Dose: 17 gm Scopolamine HBr (Transderm-Scop -) 1 patch TD Q3D@1000 [facility] Last Admin: 03/13/18 10:06 Dose: 1 patch Senna (Senna Oral Solution -) 8.8 mg GT HS [facility] Last Admin: 03/14/18 22:09 Dose: 8.8 mg - Objective Vital Signs: Vital Signs Temperature 100.2 F H 03/15/18 09:00 Pulse Rate 79 03/15/18 09:00 Respiratory Rate 20 03/15/18 09:00 Blood Pressure 116/68 03/15/18 09:00 O2 Sat by Pulse Oximetry (%) 95 03/14/18 21:00 Constitutional: Yes: Calm, Thin Eyes: Yes: WNL HENT: Yes: WNL Neck: Yes: Supple (trach) Cardiovascular: Yes: Regular Rate and Rhythm, S1, S2 Respiratory: Yes: Rhonchi (scattered rhonchi) Gastrointestinal: Yes: Normal Bowel Sounds, Soft Extremities: Yes: Shortened, Other (contracted) Edema: No Labs: CBC, BMP 03/15/18 06:00 03/15/18 06:00 INR, PTT INR 1.02 (0.83-1.09) 03/04/18 05:50 Problem List - Problems (1) Rectal bleeding Code(s): K62.5 - HEMORRHAGE OF ANUS AND RECTUM (2) Chronic respiratory failure with hypoxia Code(s): J96.11 - CHRONIC RESPIRATORY FAILURE WITH HYPOXIA (3) Hypothermia Code(s): T68.XXXA - HYPOTHERMIA, INITIAL ENCOUNTER Qualifiers: Encounter type: initial encounter Qualified Code(s): T68.XXXA - Hypothermia , initial encounter (4) Increased tracheal secretions Code(s): J39.8 - OTHER SPECIFIED DISEASES OF UPPER RESPIRATORY TRACT (6) Quadriplegia Code(s): G82.50 - QUADRIPLEGIA, UNSPECIFIED (7) Respiratory distress Code(s): R06.00 - DYSPNEA, UNSPECIFIED (8) Wheezing Code(s): R06.2 - WHEEZING Assessment/Plan IMP RUL/RLL OPACITIES MICROCEPHALY PROFOUND MENTAL RETARDATION CONGENITAL QUADRAPLEGIA S/P TRACH/PEG HEME + STOOLS PLAN INHALED BRONCHODILATORS TRACHEAL SUCTIONING O2 NUTRITIONAL SUPPORT ASPIRATION PRECAUTIONS F/U CHEST CT 6-[address] GORMAN Problem List - Problems (1) Rectal bleeding Code(s): K62.5 - HEMORRHAGE OF ANUS AND RECTUM (2) Chronic respiratory failure with hypoxia Code(s): J96.11 - CHRONIC RESPIRATORY FAILURE WITH HYPOXIA (3) Hypothermia Code(s): T68.XXXA - HYPOTHERMIA, INITIAL ENCOUNTER Qualifiers: Encounter type: initial encounter Qualified Code(s): T68.XXXA - Hypothermia , initial encounter (4) Increased tracheal secretions Code(s): J39.8 - OTHER SPECIFIED DISEASES OF UPPER RESPIRATORY TRACT (6) Quadriplegia Code(s): G82.50 - QUADRIPLEGIA, UNSPECIFIED (7) Respiratory distress Code(s): R06.00 - DYSPNEA, UNSPECIFIED (8) Wheezing Code(s): R06.2 - WHEEZING
--- NOTE | 2018-03-15 15:13 | DS ---
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 atrophy, severe kyphoscoliosis, recurring tracheitis, recurring hypothermia He is brought in to the hospital for bright red blood per rectum x1 that was noted only once today. cannot provide any history due to his chronic medical problems. In the ER there was initial concern for sepsis and he was covered broadly. CT shows fecal impaction. The stool doesn't become bloody until it is around the area of the patient's rectal fissure (noted at 6 oclock on rectal exam). Spiculated mass with associated small nodules seen on chest CT. U culture grew Kleibsella Pneumonae pansensitive on Levofloxacin will complete on 03/18/2018 (2WKS) patient is having CBC< CMP are normal, mild hypoxia on RA O2 sat 88% RA improves to 95 on 2 Ltr , case discussed with ID and Pulmonary consult clered to DC . Time spend 38 minutes Condition: Stable - Instructions Diet, Activity, Other Instructions: Daily mineral oil enemas. MiraLAX 17g via G tube bid. Senna 2 tablets daily. Resume previous diet and tube feeds. Repeat CT scan of chest in 6-8 weeks. Disposition: HOME - Home Medications Comprehensive Discharge Medication List: Ambulatory Orders Albuterol 0.083% Nebulizer Mami [Ventolin 0.083% Nebulizer Soln -] 1 neb NEB QID PRN 01/29/16 Baclofen 10 mg GT TID 01/29/16 Calcium Carbonate/Vitamin D3 [Oystercal-D 500 mg-400 Unit Tb] 2 tab GT HS Cholecalciferol (Vitamin D3) [Vitamin D3] 2,000 unit GT HS 01/29/16 Lubiprostone [Amitiza] 24 mcg GT BID 01/29/16 Mag Carb/Aluminum Hydrox/Algin [Riginic Suspension] 5 ml GT TID 01/29/16 Magnesium Hydrox 2400MG/30Ml [Milk of Magnesia -] 30 ml GT HS 01/29/16 Sennosides [Senna] 10 ml GT DAILY 01/29/16 Simethicone 40 mg GT TID 01/29/16 Bisacodyl Suppository [Dulcolax Suppository -] 10 mg RC ASDIR PRN 03/04/18 [place]-3/Dha/Epa/Fish Oil [Fish Oil 1,600 mg/5 ml Liquid] 1,000 mg GT BID Scopolamine [Transderm-Scop] 1 patch.72h TD ASDIR 03/04/18 Albuterol 2.5/Ipratropium 0.5 [Duoneb -] 1 amp NEB RQID amp 03/08/18 Mineral Oil Enema [Fleet Mineral Oil Rectal Enema -] 133 ml NC DAILY enema Polyethylene Glycol 3350 [Miralax 119 gm Btl -] 17 gm PO BID bottle 03/08/18 Levofloxacin 500 mg for 4 days
[2018-03-15] MEDS ORDERED: PT OWN MED DRAWER 7, Y5N ONE (21:33)
[2018-03-15] MEDS: SENNOSIDES 8.8 MG/5 ML BULK BOTTLE GT SCH (21:38)
[2018-03-16 06:52] LABS: BASO % 1.1 % (0-2.0); EOS % 3.5 % (0-4.5); HEMATOCRIT 30.6 % (35.4-49); HEMOGLOBIN 11.1 GM/dL (11.7-16.9); LYMPH % 31.5 % (8-40); MCH 33.8 pg (25.7-33.7); MCHC 36.2 g/dl (32.0-35.9); MEAN CELL VOLUME 93.4 fl (80-96); MEAN PLT VOLUME 9.2 fl (7.5-11.1); NEUT % 51.9 % (42.8-82.8); PLATELET COUNT 427 K/MM3 (134-434); RBC 3.27 M/mm3 (4.00-5.60); RDW 15.9 % (11.9-15.9); WHITE BLOOD COUNT 6.8 K/mm3 (4.0-10.0)
[2018-03-16 07:38] LABS: ANION GAP 7 MMOL/L (8-16); BLOOD UREA NITROGEN 18 mg/dL (7-18); CALCIUM 8.7 mg/dL (8.5-10.1); CHLORIDE 106 mmol/L (98-107); CO2 31 mmol/L (21-32); CREATININE 0.6 mg/dL (0.55-1.3); GLUCOSE,RANDOM 105 mg/dL (74-106); POTASSIUM 3.7 mmol/L (3.5-5.1); SODIUM 143 mmol/L (136-145)
[2018-03-16] MEDS: POLYETHYLENE GLYCOL 3350 119 GM BTL GT SCH (10:02)
[2018-03-16] MEDS: SCOPOLAMINE HYDROBROMIDE 1 PATCH PATCH.TD72 TD SCH (10:02)
[2018-03-16 10:13] VITALS: BP 110/67; PULSE 80; TEMP 98.8
== END 2018-03-16 11:29 | disposition home or self-care (01) | DRG 377 ==
LOC: JER 18:03 → JERBED 03-04 00:07 → J4S 03-04 05:22
PROVIDERS: ADMIT Internal Medicine; ATTEND Internal Medicine
PROC: 0D20XUZ Change Feeding Device in Upper Intestinal Tract, External Approach (ICD-10-PCS; principal; 2018-03-08)
DX: K62.5 Hemorrhage of anus and rectum (principal); J18.9 Pneumonia, unspecified organism; J96.21 Acute and chronic respiratory failure with hypoxia; R53.2 Functional quadriplegia; F73 Profound intellectual disabilities; E46 Unspecified protein-calorie malnutrition; Q67.5 Congenital deformity of spine; E87.3 Alkalosis; K56.41 Fecal impaction; G80.8 Other cerebral palsy; Z93.1 Gastrostomy status; Z93.0 Tracheostomy status; Q02 Microcephaly; Z74.01 Bed confinement status; Z99.3 Dependence on wheelchair; R56.9 Unspecified convulsions; H47.20 Unspecified optic atrophy; G47.30 Sleep apnea, unspecified; M81.0 Age-related osteoporosis without current pathological fracture; R68.0 Hypothermia, not associated with low environmental temperature; D64.9 Anemia, unspecified; K60.2 Anal fissure, unspecified; E16.2 Hypoglycemia, unspecified; R91.1 Solitary pulmonary nodule; D72.819 Decreased white blood cell count, unspecified; G93.0 Cerebral cysts; Q53.10 Unspecified undescended testicle, unilateral; N20.0 Calculus of kidney; Z88.2 Allergy status to sulfonamides; J41.1 Mucopurulent chronic bronchitis
CPT/HCPCS: 36415; 36600; 49450; 71045-TC-FY; 71250-TC; 74176-TC; 76000-TC-FY; 80048; 80053; 81003; 81015; 82272; 82375; 82436; 82570; 82803; 82962; 83036; 83050; 83605; 83735; 84100; 84439; 84443; 84480; 84481; 84484; 85025; 85027; 85610; 85651; 85730; 86140; 86708; 86850; 86900; 86901; 87040; 87070; 87086; 87186; 87205; 87389; 87804; 87899; 93005; 93010; 94640; 94761; 99285-25; J7030

== ENCOUNTER 2018-11-10 20:47 | Inpatient (IN) | payer OTHER ==
[2018-11-10] MEDS ORDERED: ALBUTEROL SO4 2.5/IPRATROPIUM 0.5 INH SOL 3 ML VIAL.NEB. NEB ONE ×4 (20:59→21:00)
[2018-11-10] MEDS ORDERED: DEXAMETHASONE SOD PHOSPHATE 10 MG/1 ML VIAL ONE (21:00)
[2018-11-10] MEDS ORDERED: DEXAMETHASONE SOD PHOSPHATE 10 MG/1 ML VIAL IVPUSH ONE (21:01)
--- NOTE | 2018-11-10 21:06 | PDOC ---
History of Present Illness - General History Source: Care Provider, EMS Exam Limitations: Clinical Condition (severe mental retardation), Other (trache) - History of Present Illness Initial Comments: 48 yo M, PMH congenital quadriplegia, severe mental retardation, cerebral palsy , epilepsy disorder, microcephaly, optic nerve atrophy, severe kyphoscoliosis, recurring tracheitis, recurring hypothermia, BIBEMS after being found wheezing and cyanotic. Patient is nonverbal at baseline. All history per EMS and caregiver. Per EMS, they responded to a call, patient had been found cyanotic at around 2004, lying supine, barely breathing. Saturating in the low 80s. Applied suction with some dark green material removed, repositioned the patient , with sats coming up to 88% and the patient returning to consciousness and becoming responsive. With 3XDuonebs and 10mg dexamethasone, sats came up to around 93%. Per caregiver, patient is now back to his baseline. 11/10/18 21:02 <Ciro Mullen - Last Filed: 11/10/18 22:50> <Destiney Marroquin - Last Filed: 11/11/18 00:18> - General Stated Complaint: DIFFICULTY BREATHING Time Seen by Provider: 11/10/18 20:59 Past History - Past Medical History COPD: Yes (tracheostomy ) Disorders: Yes (gastrostomy) Psychiatric Problems: Yes (mental retardation) Seizures: Yes (EPILEPSY, seizure d/o) - Surgical History Abdominal Surgery: Yes (gastrostomy) Orthopedic Surgery: Yes (spinal fusion/hx osteoperosis left femur fx) - Immunization History Immunization Up to Date: Yes - Suicide/Smoking/Psychosocial Hx Smoking History: Never smoked Have you smoked in the past 12 months: No Hx Alcohol Use: No Drug/Substance Use Hx: No Substance Use Type: None Hx Substance Use Treatment: No <Ciro Mullen - Last Filed: 11/10/18 22:50> <Destiney Marroquin - Last Filed: 11/11/18 00:18> - Past Medical History Allergies/Adverse Reactions: Allergies Allergy/AdvReac Type Severity Reaction Status Date / Time Sulfa (Sulfonamide AdvReac Verified 11/10/18 21:05 Antibiotics) Home Medications: Ambulatory Orders Baclofen 10 mg GT TID 01/29/16 Calcium Carbonate/Vitamin D3 [Oystercal-D 500 mg-400 Unit Tb] 2 tab GT HS Cholecalciferol (Vitamin D3) [Vitamin D3] 2,000 unit GT HS 01/29/16 Lubiprostone [Amitiza] 24 mcg GT BID 01/29/16 Mag Carb/Aluminum Hydrox/Algin [Riginic Suspension] 5 ml GT TID 01/29/16 Magnesium Hydrox 2400MG/30Ml [Milk of Magnesia -] 30 ml GT HS 01/29/16 Sennosides [Senna] 10 ml GT DAILY 01/29/16 Simethicone 40 mg GT TID 01/29/16 Bisacodyl Suppository [Dulcolax Suppository -] 10 mg RC ASDIR PRN 03/04/18 [place]-3/Dha/Epa/Fish Oil [Fish Oil 1,600 mg/5 ml Liquid] 1,000 mg GT BID Albuterol 2.5/Ipratropium 0.5 [Duoneb -] 1 amp NEB RQID amp 03/08/18 Review of Systems - Review of Systems Able to Perform ROS?: No <Ciro Mullen - Last Filed: 11/10/18 22:50> *Physical Exam - Physical Exam General Appearance: Yes: Other (trach in place, on 6L oxygen, no apparent distress. Patient with contracted hands and shortened legs, eyes rolling in different directions without focusing) HEENT: positive: Other (Known optic nerve atrophy, patient extraocular movements appear intact, atraumatic, microcephalic). negative: Normal Voice ( nonverbal) Neck: positive: Other (trach in place, no active bleeding or discharge from the site) Respiratory/Chest: positive: Lungs Clear, Normal Breath Sounds. negative: Respiratory Distress Cardiovascular: positive: Regular Rhythm, Regular Rate Gastrointestinal/Abdominal: positive: Normal Bowel Sounds, Soft. negative: Tender Musculoskeletal: positive: Other Extremity: positive: Other (severe contracture of both feet and both hands) Neurologic: positive: Other. 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 NML intact, Fully Oriented, Alert, Normal Mood/Affect, Normal Response, Motor Strength 5/5 (unable to assess neurological status 2/2 severe MR and congenital quadriplegia) <Ciro Mullen - Last Filed: 07/25/19 22:50> - Vital Signs Last Vital Signs Temp Pulse Resp BP Pulse Ox 95.6 F L 76 18 107/66 99 11/10/18 23:08 11/10/18 23:58 11/10/18 21:01 11/10/18 23:58 11/10/18 23:58 <Destiney Marroquin - Last Filed: 11/11/18 00:18> ED Treatment Course - LABORATORY CBC & Chemistry Diagram: 11/10/18 21:45 11/10/18 21:45 <Ciro Mullen - Last Filed: 11/10/18 22:50> - LABORATORY CBC & Chemistry Diagram: 11/10/18 21:45 11/10/18 21:45 - ADDITIONAL ORDERS Additional order review: Laboratory Results 11/10/18 11/10/18 11/10/18 22:00 21:50 21:50 PTT (Actin FS) Anticoagulation Therapy No Result Required. Puncture Site Left radial ABG pH 7.47 H ABG pCO2 at Pt Temp 39.4 ABG pO2 at Pt Temp 171 H ABG HCO3 28.1 H ABG O2 Sat (Measured) 99.9 H ABG O2 Content 19.0 ABG Base Excess 4.6 H Dawit Test Positive Carboxyhemoglobin 1.3 Methemoglobin 0.2 O2 Delivery Device No Result Required. Oxygen Flow Rate 6l Vent Mode No Result Required. Vent Rate No Result Required. Mechanical Rate No Result Required. Pressure Support Vent No Result Required. Sodium Potassium Chloride Carbon Dioxide Anion Gap BUN Creatinine Est GFR (CKD-EPI)AfAm Est GFR (CKD-EPI)NonAf Random Glucose Lactic Acid 1.5 Calcium Magnesium Total Bilirubin AST ALT Alkaline Phosphatase Creatine Kinase Creatine Kinase Index CK-MB (CK-2) Troponin I B-Natriuretic Peptide Total Protein Albumin 11/10/18 11/10/18 21:45 21:45 PTT (Actin FS) 39.1 H Anticoagulation Therapy Puncture Site ABG pH ABG pCO2 at Pt Temp ABG pO2 at Pt Temp ABG HCO3 ABG O2 Sat (Measured) ABG O2 Content ABG Base Excess Dawit Test Carboxyhemoglobin Methemoglobin O2 Delivery Device Oxygen Flow Rate Vent Mode Vent Rate Mechanical Rate Pressure Support Vent Sodium 137 Potassium 5.0 Chloride 100 Carbon Dioxide 30 Anion Gap 7 L BUN 15.0 Creatinine 0.7 Est GFR (CKD-EPI)AfAm 127.53 Est GFR (CKD-EPI)NonAf 110.04 Random Glucose 115 H Lactic Acid Calcium 8.8 Magnesium 2.9 H Total Bilirubin 0.5 AST 94 H ALT 80 H Alkaline Phosphatase 243 H Creatine Kinase 880 H Creatine Kinase Index 1.4 CK-MB (CK-2) 12.7 H Troponin I < 0.02 B-Natriuretic Peptide 48.3 Total Protein 8.3 H Albumin 3.3 L 11/10/18 21:45 RBC 4.21 MCV 92.1 MCHC 34.3 RDW 15.8 MPV 10.2 D Neutrophils % 70.5 D Lymphocytes % 17.4 D Monocytes % 4.4 Eosinophils % 7.1 H D Basophils % 0.6 - RADIOLOGY Radiology Studies Ordered: Category Date Time Status CHEST X-RAY PORTABLE* [RAD] Stat Radiology 11/10/18 21:19 Taken - Medications Given in the ED: ED Medications Discontinued Medications Generic Name Dose Route Start Last Admin Trade Name Freq PRN Reason Stop Dose Admin Albuterol/Ipratropium 1 amp 11/10/18 20:59 11/10/18 21:10 Duoneb - NEB 11/10/18 21:00 1 amp ONCE ONE Administration Albuterol/Ipratropium 1 amp 11/10/18 21:00 11/10/18 21:10 Duoneb - NEB 11/10/18 21:01 1 amp ONCE ONE Administration Albuterol/Ipratropium 1 amp 11/10/18 21:00 11/10/18 21:10 Duoneb - NEB 11/10/18 21:01 1 amp ONCE ONE Administration Dexamethasone Sodium Phosphate 10 mg 11/10/18 21:01 11/10/18 21:09 Decadron Injection - IVPUSH 11/10/18 21:02 10 mg ONCE ONE Administration <Destiney Marroquin - Last Filed: 11/11/18 00:18> Medical Decision Making - Medical Decision Making Trach collar replaced, patient now sat'ing 100% on 6L O2. 11/10/18 22:00 EKG reviewed. NSR at 82 bpm, regular axis, normal intervals, no acute ST segment elevations or T wave changes. 11/10/18 22:47 WBC 10.2 11/10/18 22:50 <Ciro Mullen - Last Filed: 11/10/18 22:50> *DC/Admit/Observation/Transfer <Ciro Mullen - Last Filed: 11/10/18 22:50> - Discharge Dispostion Decision to Admit order: Yes <Destiney Marroquin - Last Filed: 11/11/18 00:18> Diagnosis at time of Disposition: Hypothermia, Pneumonia - Discharge Dispostion Condition at time of disposition: Fair
--- NOTE | 2018-11-10 21:59 | PDOC ---
Documentation entered by Nancy Tejada SCRIBE, acting as scribe for Destiney Marroquin DO. Destiney Marroquin DO: This documentation has been prepared by the Mallory tapia Adrianna, SCRIBE, under my direction and personally reviewed by me in its entirety. I confirm that the documentation accurately reflects all work, treatment, procedures, and medical decision making performed by me. Attending Attestation - Resident Resident Name: [email or web address] - ED Attending Attestation I have performed the following: I have examined & evaluated the patient, The case was reviewed & discussed with the resident, I agree w/resident's findings & plan, Exceptions are as noted - HPI HPI: The patient is a 48 year old male, with a significant PMH of severe MR, congenital quadriplegia, cerebral palsy, non verbal with chronic trach and chronic peg, bedbound/wheelchair, epilepsy disorder, microcephaly, optic nerve atrophy, severe kyphoscoliosis, recurring tracheitis, and recurring hypothermia , who presents to the ED [facility] for evaluation of respiratory distress. History is providers by aid at bedside. Aid notes patient was found to be wheezing and cyanotic. Upon EMS arrival, patient was having difficulty breathing, lying flat, and O2 sat was in the low 80s. EMS reports applying suction, removing green mucus, and the patients O2 sat improved (88%). Aid notes patient is back to baseline while in the ED. Allergies: Sulfa Surgical History: Gastrostomy, spinal fusion Social History: Mental retardation, cerebral palsy, non-verbal, bedbound/ wheelchair bound - Physicial Exam PE: Constitutional: +Contracted hands. +Contracted limbs. Head: +Microcephaly. Atraumatic Eyes: PERRL. EOMI. Conjunctivae are not pale. ENT: +Trach in place, with no active bleeding but dried bloody sputum surrounding. Mucous membranes are moist and intact. Neck: Supple. Full ROM. No lymphadenopathy. Cardiovascular: Regular rate. Regular rhythm. S1, S2 regular. Pulmonary/Chest: +Diminished breath sounds bilaterally. No tachypnea. No evidence of respiratory distress. No wheezing, rales or rhonchi. Abdominal: +G-tube in place. Soft and nondistended. There is no tenderness. No rebound, guarding or rigidity. No organomegaly. No palpable masses. Good bowel sounds. Back: No CVA tenderness. Musculoskeletal: No edema. No cyanosis. No clubbing. No calf tenderness. Skin: Skin is warm and dry. No petechiae. No purpura. - Medical Decision Making 11/10/18 21:57 I, Dr. Destiney Marroquin, DO, attest that this document has been prepared under my direction and personally reviewed by me in its entirety. I further attest, that it accurately reflects all work, treatment, procedures and medical decision -making performed by me. 11/10/18 21:57 a/p: 48yo male from [place] for eval of hypoxia, cyanosis -pt was suctioned by EMS [employer] and received 3 duo nebs and decadron -pt arrives awake, not tachypnic -sat upon arrival was 94%on neb -not warm to touch -rectal temp is 95.6 -will send labs, cxr, ekg -will monitor and reassess -poss mucus plug/pna with resp distress 11/11/18 00:11 poss early pna at b/l bases abx ordered culutures sent no elevated wbc, but has L shift microblog sent to [facility] for admission prior culture sensitive to K. pneumo - sensitive to rocephin 11/11/18 00:19 case discussed with [facility] who accepts pt to service Heart Score/ECG Review - ECG Intrepretation Comment:: 11/10/18 22:44 sinus at 82, nl axis, nl interval, no acute st/t wave findings, q waves septally which are age indeterminate
[2018-11-10 22:19] LABS: EOS % 7.1 % (0-4.5); RDW 15.8 % (11.9-15.9)
[2018-11-10 22:40] LABS: ARTERIAL BLD GAS O2 SATURATION 99.9 % (95-98); ARTERIAL BLOOD GAS BASE EXCESS 4.6 meq/l (-2-2); ARTERIAL BLOOD GAS PCO2 39.4 mmHg (35-45); ARTERIAL BLOOD GAS PO2 171 mmHg (80-105); ARTERIAL BLOOD GAS pH 7.47 (7.35-7.45)
[2018-11-10 22:40] LABS: BASO % 0.6 % (0-2.0); HEMATOCRIT 38.8 % (35.4-49); HEMOGLOBIN 13.3 GM/dL (11.7-16.9); LYMPH % 17.4 % (8-40); MCH 31.6 pg (25.7-33.7); MCHC 34.3 g/dl (32.0-35.9); MEAN CELL VOLUME 92.1 fl (80-96); MEAN PLT VOLUME 10.2 fl (7.5-11.1); MONO % 4.4 % (3.8-10.2); NEUT % 70.5 % (42.8-82.8); PLATELET COUNT 252 K/MM3 (134-434); RBC 4.21 M/mm3 (4.00-5.60); WHITE BLOOD COUNT 10.2 K/mm3 (4.0-10.0)
[2018-11-10 22:41] LABS: ALLENS TEST POSITIVE
[2018-11-10 22:48] LABS: ALBUMIN 3.3 g/dl (3.4-5.0); ALK PHOS 243 U/L (45-117); ANION GAP 7 MMOL/L (8-16); BILIRUBIN,TOTAL 0.5 mg/dL (0.2-1); CALCIUM 8.8 mg/dL (8.5-10.1); CHLORIDE 100 mmol/L (98-107); CO2 30 mmol/L (21-32); CREATININE 0.7 mg/dL (0.55-1.3); GLUCOSE,RANDOM 115 mg/dL (74-106); MAGNESIUM 2.9 mg/dL (1.8-2.4); N-TERMINAL BNP 48.3 pg/ml (5-125); SGOT/AST 94 U/L (15-37); SGPT/ALT 80 U/L (13-61); SODIUM 137 mmol/L (136-145); TOT PROT 8.3 g/dl (6.4-8.2)
[2018-11-11 00:04] LABS: CARBOXYHEMOGLOBIN 1.3 % (0-2)
[2018-11-11] MEDS ORDERED: CEFTRIAXONE 1 GM in DEXTROSE 5%-WATER - 100 ML IVPB ONE (00:11)
[2018-11-11] MEDS ORDERED: AZITHROMYCIN IVPB 500 MG in DEXTROSE 5%-WATER - 250 ML IVPB ONE (00:11)
[2018-11-11] MEDS ORDERED: CEFTRIAXONE 1 GM/50 ML BAG ONE (00:13)
--- NOTE | 2018-11-11 00:46 | HP ---
CHIEF COMPLAINT:Difficulty breathing PCP: From [facility] HISTORY OF PRESENT ILLNESS: Patient is nonverbal at baseline, HPI was obtained from [facility] caregiver and ED team sign out. 48 M PMH significant for congenital quadriplegia, severe mental disability, cerebral palsy, epilepsy disorder, microcephaly, severe kyphoscoliosis, g-tube, and tracheostomy, who found to be wheezing and cyanotic at his nursing facility. He was saturating in the low 80's at the facility and was no responsive. After positioning him and suctioning him there was dark green material removed and the patient became conscious and his oxygen saturation increased. Patient was brought to [facility] for further evaluation and treatment. Caregiver states that patient was at his baseline when I examined him, he can turn his head to when he hears his name but otherwise there is no other interaction. Caregiver is unable to provide information on patient's condition prior to events. ER course was notable for: (1)3x Duonebs were given, 10 mg of decadron was given and saturation increased to 93%. Patient was saturating at 99% on room air when I examined patient. (2)ABG was drawn- resulted in pH of 7.47 with pCO2 of 39.4, pO2 of 171, and pCO3 of 28.1. (3)CBC was completed which showed a slight elevation of WBC at 10.2, CMP showed elevated CK (880), alk phos of 243, and AST 80, ALT 90. (4)EKG was done, showed NSR, with no acute changes compared to previous EKG. Recent Travel: None PAST MEDICAL HISTORY: congenital quadriplegia, severe mental disability, cerebral palsy, epilepsy disorder, microcephaly, optic nerve atrophy, severe kyphoscoliosis, PAST SURGICAL HISTORY: Gastrostomy, spinal fusion, tracheostomy Social History: Unable to obtain Smoking: Alcohol: Drugs: Family History: Unable to obtain Allergies Sulfa (Sulfonamide Antibiotics) Adverse Reaction (Verified 11/10/18 21:05) HOME MEDICATIONS: Home Medications Medication Instructions Recorded Baclofen 10 mg GT TID 01/29/16 Calcium Carbonate/Vitamin D3 2 tab GT HS 01/29/16 [Oystercal-D 500 mg-400 Unit Tb] Cholecalciferol (Vitamin D3) 2,000 unit GT HS 01/29/16 [Vitamin D3] Lubiprostone [Amitiza] 24 mcg GT BID 01/29/16 Mag Carb/Aluminum Hydrox/Algin 5 ml GT TID 01/29/16 [Riginic Suspension] Magnesium Hydrox 2400MG/30Ml [Milk 30 ml GT HS 01/29/16 of Magnesia -] Sennosides [Senna] 10 ml GT DAILY 01/29/16 Simethicone 40 mg GT TID 01/29/16 Bisacodyl Suppository [Dulcolax 10 mg RC ASDIR PRN 03/04/18 Suppository -] [place]-3/Dha/Epa/Fish Oil [Fish Oil 1,000 mg GT BID 03/04/18 1,600 mg/5 ml Liquid] Albuterol 2.5/Ipratropium 0.5 1 amp NEB RQID amp 03/08/18 [Duoneb -] REVIEW OF SYSTEMS Patient unable to communicate CONSTITUTIONAL: Absent: fever, chills, diaphoresis, generalized weakness, malaise, loss of appetite, weight change HEENT: Absent: rhinorrhea, nasal congestion, throat pain, throat swelling, difficulty swallowing, mouth swelling, ear pain, eye pain, visual changes CARDIOVASCULAR: Absent: chest pain, syncope, palpitations, irregular heart rate, lightheadedness , peripheral edema RESPIRATORY: Absent: cough, shortness of breath, dyspnea with exertion, orthopnea, wheezing, stridor, hemoptysis GASTROINTESTINAL: Absent: abdominal pain, abdominal distension, nausea, vomiting, diarrhea, constipation, melena, hematochezia GENITOURINARY: Absent: dysuria, frequency, urgency, hesitancy, hematuria, flank pain, genital pain MUSCULOSKELETAL: Absent: myalgia, arthralgia, joint swelling, back pain, neck pain SKIN: Absent: rash, itching, pallor HEMATOLOGIC/IMMUNOLOGIC: Absent: easy bleeding, easy bruising, lymphadenopathy, frequent infections ENDOCRINE: Absent: unexplained weight gain, unexplained weight loss, heat intolerance, cold intolerance NEUROLOGIC: Absent: headache, focal weakness or paresthesias, dizziness, unsteady gait, seizure, mental status changes, bladder or bowel incontinence PSYCHIATRIC: Absent: anxiety, depression, suicidal or homicidal ideation, hallucinations. PHYSICAL EXAMINATION Vital Signs - 24 hr 11/10/18 11/10/18 11/10/18 21:01 22:03 22:25 Temperature 95.6 F L Pulse Rate 86 Pulse Rate [ Apical] Respiratory 18 Rate Blood Pressure 130/76 Blood Pressure [Right Arm] O2 Sat by Pulse 99 99 99 Oximetry (%) 11/10/18 11/10/18 23:08 23:58 Temperature 95.6 F L Pulse Rate Pulse Rate [ 73 76 Apical] Respiratory Rate Blood Pressure Blood Pressure 116/72 107/66 [Right Arm] O2 Sat by Pulse 99 99 Oximetry (%) GENERAL: Awake, alert, responds to examiner by turning head to where voice came from. HEAD: Microcephaly with no signs of trauma. EYES: Extraocular movements intact, sclera anicteric, conjunctiva clear. EARS, NOSE, THROAT: Ears normal, nares patent, oropharynx clear without exudates. Moist mucous membranes. NECK: Trach in place with trach collar. Currently receiving 9L oxygen. No active bleeding or discharge noted. LUNGS: Breath sounds equal, clear to auscultation HEART: Regular rate and rhythm, normal S1 and S2 without murmur, rub or gallop. ABDOMEN: Soft, nontender, not distended, normoactive bowel sounds, no guarding, no rebound, no masses. G-tube in place, no erythema surrounding site. MUSCULOSKELETAL: Contracted arms and legs. UPPER EXTREMITIES: 2+ pulses, warm, well-perfused. No cyanosis. No clubbing. No peripheral edema. LOWER EXTREMITIES: 2+ pulses, warm, well-perfused. No calf tenderness. No peripheral edema. SKIN: Warm, dry, normal turgor, no rashes or lesions noted, normal capillary refill. Laboratory Results - last 24 hr 11/10/18 11/10/18 11/10/18 21:45 21:45 21:45 WBC 10.2 H RBC 4.21 Hgb 13.3 Hct 38.8 D MCV 92.1 MCH 31.6 MCHC 34.3 RDW 15.8 Plt Count 252 D MPV 10.2 D Absolute Neuts (auto) 7.2 Neutrophils % 70.5 D Lymphocytes % 17.4 D Monocytes % 4.4 Eosinophils % 7.1 H D Basophils % 0.6 Nucleated RBC % 0 PTT (Actin FS) 39.1 H Anticoagulation Therapy Puncture Site ABG pH ABG pCO2 at Pt Temp ABG pO2 at Pt Temp ABG HCO3 ABG O2 Sat (Measured) ABG O2 Content ABG Base Excess Dawit Test Carboxyhemoglobin Methemoglobin O2 Delivery Device Oxygen Flow Rate Vent Mode Vent Rate Mechanical Rate Pressure Support Vent Sodium 137 Potassium 5.0 Chloride 100 Carbon Dioxide 30 Anion Gap 7 L BUN 15.0 Creatinine 0.7 Est GFR (CKD-EPI)AfAm 127.53 Est GFR (CKD-EPI)NonAf 110.04 Random Glucose 115 H Lactic Acid Calcium 8.8 Magnesium 2.9 H Total Bilirubin 0.5 AST 94 H ALT 80 H Alkaline Phosphatase 243 H Creatine Kinase 880 H Creatine Kinase Index 1.4 CK-MB (CK-2) 12.7 H Troponin I < 0.02 B-Natriuretic Peptide 48.3 Total Protein 8.3 H Albumin 3.3 L 11/10/18 11/10/18 11/10/18 21:50 21:50 22:00 WBC RBC Hgb Hct MCV MCH MCHC RDW Plt Count MPV Absolute Neuts (auto) Neutrophils % Lymphocytes % Monocytes % Eosinophils % Basophils % Nucleated RBC % PTT (Actin FS) Anticoagulation Therapy No Result Required. Puncture Site Left radial ABG pH 7.47 H ABG pCO2 at Pt Temp 39.4 ABG pO2 at Pt Temp 171 H ABG HCO3 28.1 H ABG O2 Sat (Measured) 99.9 H ABG O2 Content 19.0 ABG Base Excess 4.6 H Dawit Test Positive Carboxyhemoglobin 1.3 Methemoglobin 0.2 O2 Delivery Device No Result Required. Oxygen Flow Rate 6l Vent Mode No Result Required. Vent Rate No Result Required. Mechanical Rate No Result Required. Pressure Support Vent No Result Required. Sodium Potassium Chloride Carbon Dioxide Anion Gap BUN Creatinine Est GFR (CKD-EPI)AfAm Est GFR (CKD-EPI)NonAf Random Glucose Lactic Acid 1.5 Calcium Magnesium Total Bilirubin AST ALT Alkaline Phosphatase Creatine Kinase Creatine Kinase Index CK-MB (CK-2) Troponin I B-Natriuretic Peptide Total Protein Albumin ASSESSMENT/PLAN: 48 M with PMH significant for congenital quadriplegia, severe mental disability , cerebral palsy, epilepsy disorder, microcephaly, who presents today with respiratory distress due to a mucus plug. Patient is currently saturating 99% with oxygen at 9LPM from trach, however is at risk for pneumonia given leukocytosis. Patient also has elevated CK-MB (12.7). 1) Respiratory Distress due to mucus plug which has resolved. Mucus plug removed, respiratory distress resolved. ABG did not show any signs of respiratory distress. However patient is at increased risk for aspiration pneumonia given G-tube and mucus plug. Patient is also hypothermic. -Continue monitoring CBC -Clindamycin 600 mg Daily -Blood culture pending -Duoneb PRN -6LPM Trache 2) Elevated CK-MB EKG did not show any changes, initial troponin is not elevated. -Continue trending Troponins and CK-MB. -Repeat EKG with troponin draw in AM -Monitor on telemetry. 3)Elevated CK Unknown cause of elevated CK, unlikely rhabdomyolysis. -Continue trending CK levels -NS @ 75 ml/hr 4)Transaminitis -Patient has historically elevated levels of AST, ALT, Alkaline Phosphatase. -Right Upper Quadrant U/s 5)Hypermagnesium -Should manage patients outpatient magnesium medications, likely secondary. DVT: Lovenox 30 mg SQ Daily F: NS @ 75 ml/hr E: Monitor BMP N:G-tube feeds in the AM after confirming feed amount from [facility]. Dispo: Admit to telemetry. Problem List - Problem (1) Hypothermia Code(s): T68.XXXA - HYPOTHERMIA, INITIAL ENCOUNTER Qualifiers: (2) Respiratory distress Code(s): R06.00 - DYSPNEA, UNSPECIFIED Visit type - Emergency Visit Emergency Visit: Yes ED Registration Date: 11/11/18 Care time: The patient presented to the Emergency Department on the above date and was hospitalized for further evaluation of their emergent condition. - New Patient This patient is new to me today: Yes Date on this admission: 11/11/18 - Critical Care Critical Care patient: No ATTENDING PHYSICIAN STATEMENT I saw and evaluated the patient. I reviewed the resident's note and discussed the case with the resident. I agree with the resident's findings and plan as documented. SUBJECTIVE: OBJECTIVE: ASSESSMENT AND PLAN:
[2018-11-11] MEDS ORDERED: ALBUTEROL SO4 2.5/IPRATROPIUM 0.5 INH SOL 3 ML VIAL.NEB. NEB PRN (00:53)
[2018-11-11] MEDS ORDERED: AZITHROMYCIN IVPB 500 MG/250 ML BAG IVPB ONE ×2 (00:57→09:26)
[2018-11-11] MEDS ORDERED: LACTATED RINGERS SOLUTION 1,000 ML/1,000 ML INFUS.BAG IV SCH (01:00)
[2018-11-11] MEDS: SODIUM CHLORIDE 1,000 ML IV SCH ×2 (01:27→22:01)
--- NOTE | 2018-11-11 01:45 | PN ---
Teaching Attending Note Name of Resident: Elma Pillai ATTENDING PHYSICIAN STATEMENT I saw and evaluated the patient. I reviewed the resident's note and discussed the case with the resident. I agree with the resident's findings and plan as documented. Patient seen and examined; please refer to resident note for further historical information. Briefly, this is a 48 y/o male with a PMH as documented presenting to the ER with apparent SOB/cyanosis found to have an apparent mucus plug after aggressive suctioning; he is hemodynamically stable and afebrile now , satting near 100% on trach collar (on ~6L at home I am informed by nursing). He is slightly hypothermic. Bringing to medicine with pulmonary consult in AM. VS, labs, imaging reviewed NAD, tracks, doesn't look uncomfortable, on trach collar NC AT EOMI PERRLA RRR s1/2 Lungs with poor expansion but w/ sym exp, no jesica consolidations. Abdomen appears nontender, +BS Not agitated, doesn't appear in pain Prior cultures and ID consults/Pulm consults reviewed ASSESSMENT AND PLAN: Patient presents with hypoxia likely 2/2 mucus plug +/- PNA; he has not had MDROs for 3 years and was treated with CAP coverage successfully his last admission. He is not tachycardic, hypoxia resolved with suction of mucus, but he does have a slight white count (could be reactive) and does have risks for aspiration in the setting of mild hypothermia (but this has been a chronic issue per his chart). We will thus cover for PNA (potential R-sided infiltrate but may be chronic (old CXRs rotated); will consider CXR in AM post hydration vs. CT). He is stable and appropriate for the floor. Transaminitis is chronic but no US since 2016; will check. Noted elevated CK/CKMB but negative trop and no jesica EKG changes. Repeating EKG in AM, trending CE, monitor tele but unlikely ACS (no recent echo so can check). # Hypoxia # Mucus Plug, resolved; r/o PNA # Transaminitis, chronic # Elevated CK/CKMB # History of seizures # Severe MR/CP, microcephaly, functional quadraplegia # Hx Optic N. Atrophy # Severe kyphoscoliosis # Recurring tracheitis # Recurring hypothermia Full Code
[2018-11-11] MEDS ORDERED: CLINDAMYCIN 600MG PREMIX IVPB 600 MG/50 ML BAG IVPB ONE (05:09)
[2018-11-11] MEDS: CLINDAMYCIN 600MG PREMIX IVPB 600 MG/50 ML BAG IVPB SCH ×2 (05:12→10:20)
[2018-11-11] MEDS ORDERED: BISACODYL 10 MG SUPP.RECT RC PRN (05:18)
[2018-11-11] MEDS ORDERED: BACLOFEN 10 MG TABLET (FP) ONE (06:19)
[2018-11-11] MEDS: BACLOFEN 10 MG TABLET (FP) GT SCH ×3 (06:26→22:01)
[2018-11-11 07:17] LABS: BASO % 0.3 % (0-2.0); EOS % 0.1 % (0-4.5); HEMATOCRIT 37.3 % (35.4-49); HEMOGLOBIN 12.8 GM/dL (11.7-16.9); LYMPH % 16.2 % (8-40); MCH 31.3 pg (25.7-33.7); MCHC 34.3 g/dl (32.0-35.9); MEAN CELL VOLUME 91.4 fl (80-96); MEAN PLT VOLUME 9.3 fl (7.5-11.1); MONO % 0.6 % (3.8-10.2); NEUT % 82.8 % (42.8-82.8); PLATELET COUNT 251 K/MM3 (134-434); RBC 4.08 M/mm3 (4.00-5.60); RDW 15.6 % (11.9-15.9); WHITE BLOOD COUNT 5.4 K/mm3 (4.0-10.0)
[2018-11-11 08:14] LABS: INR 1.04 (0.83-1.09); PROTHROMBIN TIME (PATIENT) 12.3 SEC (9.7-13.0)
[2018-11-11 08:16] LABS: ACTIVATED PTT 34.2 SECONDS (25.2-36.5); ALBUMIN 3.3 g/dl (3.4-5.0); BILIRUBIN,TOTAL 0.3 mg/dL (0.2-1); BLOOD UREA NITROGEN 11.3 mg/dL (7-18); CALCIUM 9.1 mg/dL (8.5-10.1); CREATININE 0.5 mg/dL (0.55-1.3); MAGNESIUM 2.9 mg/dL (1.8-2.4); POTASSIUM 3.8 mmol/L (3.5-5.1); TOT PROT 8.2 g/dl (6.4-8.2)
[2018-11-11] MEDS: ALBUTEROL SO4 2.5/IPRATROPIUM 0.5 INH SOL 3 ML VIAL.NEB. NEB SCH ×4 (09:23→22:35)
[2018-11-11] MEDS: AZITHROMYCIN IVPB 250 MG in DEXTROSE 5%-WATER - 250 ML IVPB SCH (09:32)
[2018-11-11] MEDS: ENOXAPARIN NA (PORCINE) 30 MG/0.3 ML DISP.SYRIN SQ SCH (09:38)
[2018-11-11] MEDS ORDERED: CEFTRIAXONE 1 GM in DEXTROSE 5%-WATER - 50 ML IVPB SCH (10:00)
[2018-11-11] MEDS ORDERED: ENOXAPARIN NA (PORCINE) 40 MG/0.4 ML DISP.SYRIN SQ SCH (10:00)
[2018-11-11] MEDS ORDERED: PATIENT'S OWN MEDICATION (NON-FORMULARY) (Lubiprostone [Amitiza] 24 MCG) GT SCH (10:00)
--- NOTE | 2018-11-11 11:07 | ECHO ---
Name: KAVIN ALVARADO Exam:Adult Echocardiogram Study Date: 11/11/2018 08:26 AM Age: 48 yrs Reason For Study: FLUID OVERLOAD Height: 53 in Weight: 80 lb BSA: 1.2 m2 MMode/2D Measurements & Calculations IVSd: 0.77 cm Ao root diam: 2.8 cm LVIDd: 3.6 cm LA dimension: 2.2 cm LVIDs: 2.4 cm LVPWd: 0.68 cm EDV(Teich): 55.6 ml LVOT diam: 2.0 cm ESV(Teich): 20.0 ml Doppler Measurements & Calculations MV E max bi: 63.7 cm/sec Ao V2 max: 103.8 cm/sec MV A max bi: 95.8 cm/sec Ao max P.3 mmHg MV E/A: 0.66 Ao V2 mean: 80.7 cm/sec MV dec time: 0.17 sec Ao mean P.9 mmHg Ao V2 VTI: 19.9 cm DOTTY(I,D): 2.6 cm2 DOTTY(V,D): 2.3 cm2 LV V1 max P.2 mmHg SV(LVOT): 51.3 ml LV V1 mean P.1 mmHg LV V1 max: 73.7 cm/sec LV V1 mean: 48.8 cm/sec LV V1 VTI: 15.6 cm Med Peak E' Bi: 5.8 cm/sec Med E/e': 11.1 Lat Peak E' Bi: 6.4 cm/sec Lat E/e': 10.0 Procedure The study was technically difficult with many images being suboptimal in quality. There was technical limitations during this study due to patients body habitas. Left Ventricle Left ventricular systolic function is grossly normal. Ejection Fraction = 50-55%. The transmitral spe ctral Doppler flow pattern is suggestive of impaired LV relaxation. Right Ventricle The right ventricle is not well visualized. Atria Normal left and right atrial size and function. Mitral Valve The mitral valve is normal in structure and function. There is no mitral valve stenosis. There is tra ce mitral regurgitation. Tricuspid Valve The tricuspid valve is normal in structure and function. There is mild tricuspid regurgitation. Aortic Valve The aortic valve opens well. No hemodynamically significant valvular aortic stenosis. Pulmonic Valve The pulmonic valve is not well seen, but is grossly normal. There is no pulmonic valvular stenosis. Great Vessels The aortic root is normal size. Pericardium/Pleura There is no pericardial effusion. Interpretation Summary The study was technically difficult with many images being suboptimal in quality. There was technical limitations during this study due to patients body habitas. Left ventricular systolic function is grossly normal. Ejection Fraction = 50-55%. The transmitral spectral Doppler flow pattern is suggestive of impaired LV relaxation. There is mild tricuspid regurgitation. There is no pericardial effusion. MD Mendoza *Nanda 11/11/2018 11:06 AM
--- NOTE | 2018-11-11 13:52 | PN ---
Teaching Attending Note Name of Resident: Bisi Isabel ATTENDING PHYSICIAN STATEMENT I saw and evaluated the patient. I reviewed the resident's note and discussed the case with the resident. I agree with the resident's findings and plan as documented. SUBJECTIVE: Not able to obtain hx OBJECTIVE: NAD , non verbal , awake. CV : RRR. Lungs : course breath sounds at R base ABd : soft , NT, distended , + BS. . PEG in place , with no skin changes arount it Imaging: cxray report and image , US, and Echo reports reviewed Assessment/Plan: 48 y/o male with h/o MR, non verbal, recurrent tracheitis , seizure Disorder, microcephaly, seizure disorder, constipation, and congenital quadriplegia who presented wwith hypoxia and was found to have a mucus plugging and hypothermia 1- Acute respiratory failure: due to mucus plugging +/_ aspiration PNA - cont clinda and azithro - follow blood cx - [place] marie aas needed to keep temp > 97 - breathing treatment - add Mucomyst - pulm. 2- Hypothermia: n o hypothermia in our system during previous admissions. ? sepsis - will contact [facility] to ask about base line temp - cont PNA treatment - [place] marie 3- Metabolic alkalosis: likely due to volume depletion - start IVF 4- Mild Rhabdomyolysis : IVF and monitor CPK level 5- Transaminitis: chronic . trending down . US reviewed. trend 6- h/o seizures: not on any seizure meds per [facility] records 7- DVT PX 8- dispo: HLOC
[2018-11-11] MEDS ORDERED: ALBUTEROL SO4 0.083% IH SOL 2.5 MG/3 ML VIAL.NEB. NEB PRN ×2 (13:55→21:35)
--- NOTE | 2018-11-11 15:31 | CON.PULM ---
Consult Consult Specialty:: PULMONARY Referred by:: KEDAR Reason for Consultation:: PNEUMONIA - History of Present Illness Chief Complaint: CHEST CONGESTION/O2 DESATURATION History of Present Illness: 48 yo M, PMH congenital quadriplegia, severe mental retardation, cerebral palsy , epilepsy disorder, microcephaly, optic nerve atrophy, severe kyphoscoliosis, recurring tracheitis, recurring hypothermia, BIBEMS after being found wheezing and cyanotic. Patient is nonverbal at baseline. All history per EMS and caregiver. Per EMS, they responded to a call, patient had been found cyanotic at around 2004, lying supine, barely breathing. Saturating in the low 80s. Applied suction with some dark green material removed, repositioned the patient , with sats coming up to 88% and the patient returning to consciousness and becoming responsive. With 3XDuonebs and 10mg dexamethasone, sats came up to around 93%. - History Source History Provided By: Caregiver, Transfer Record Limitations to Obtaining History: Clinical Condition - Past Medical History CASE REVIEWER: Yes: Seizure, Other (quadraplegia, microcephaly, profound MR) Gastrointestinal: Yes: Constipation Musculoskeletal: Yes: Paraplegia, Other (SCOLIOSIS) Additional Medical History: CP/MICROCEPHALY - Alcohol/Substance Use Hx Alcohol Use: No History of Substance Use: reports: None - Smoking History Smoking history: Never smoked Have you smoked in the past 12 months: No - Social History Usual Living Arrangement: Other (at [facility] [place]) ADL: Support Services History of Recent Travel: No Home Medications - Allergies Allergies/Adverse Reactions: Allergies Allergy/AdvReac Type Severity Reaction Status Date / Time Sulfa (Sulfonamide AdvReac Verified 11/10/18 21:05 Antibiotics) - Home Medications Home Medications: Ambulatory Orders Baclofen 10 mg GT TID 01/29/16 Calcium Carbonate/Vitamin D3 [Oystercal-D 500 mg-400 Unit Tb] 2 tab GT HS Cholecalciferol (Vitamin D3) [Vitamin D3] 2,000 unit GT HS 01/29/16 Lubiprostone [Amitiza] 24 mcg GT BID 01/29/16 Mag Carb/Aluminum Hydrox/Algin [Riginic Suspension] 5 ml GT TID 01/29/16 Magnesium Hydrox 2400MG/30Ml [Milk of Magnesia -] 30 ml GT HS 01/29/16 Sennosides [Senna] 10 ml GT DAILY 01/29/16 Simethicone 40 mg GT TID 01/29/16 Bisacodyl Suppository [Dulcolax Suppository -] 10 mg RC ASDIR PRN 03/04/18 [place]-3/Dha/Epa/Fish Oil [Fish Oil 1,600 mg/5 ml Liquid] 1,000 mg GT BID Albuterol 2.5/Ipratropium 0.5 [Duoneb -] 1 amp NEB RQID amp 03/08/18 Family Disease History - Family Disease History Family History: Unable to Obtain Review of Systems Unable to obtain ROS, reason: UNABLE TO OBTAIN Physical Exam Vital Sings: Vital Signs Temperature 98 F 11/11/18 13:08 Pulse Rate 68 11/11/18 15:03 Respiratory Rate 21 H 11/11/18 15:03 Blood Pressure 100/65 11/11/18 15:03 O2 Sat by Pulse Oximetry (%) 97 11/11/18 14:59 Constitutional: Yes: Mild Distress HENT: Yes: Other (MICROCEPHALY) Neck: Yes: Other (TRACH IN PLACE) Cardiovascular: Yes: S1, S2 Respiratory: Yes: Rhonchi Gastrointestinal: Yes: Other (PEG) Edema: No Labs: CBC, BMP 11/11/18 07:00 11/11/18 07:00 ABG Results ABG pH 7.47 (7.35-7.45) H 11/10/18 21:50 ABG pCO2 at Pt Temp 39.4 mmHg (35-45) 11/10/18 21:50 ABG pO2 at Pt Temp 171 mmHg (80-105) H 11/10/18 21:50 ABG HCO3 28.1 mmol/L (22-27) H 11/10/18 21:50 ABG O2 Sat (Measured) 99.9 % (95-98) H 11/10/18 21:50 ABG O2 Content 19.0 % vol (15-22) 11/10/18 21:50 ABG Base Excess 4.6 meq/l (-2-2) H 11/10/18 21:50 Imaging - Results Chest X-ray: Report Reviewed, Image Reviewed Ultrasound: Report Reviewed Problem List - Problems (1) Pneumonia Code(s): J18.9 - PNEUMONIA, UNSPECIFIED ORGANISM (2) Acute and chronic respiratory failure Code(s): J96.20 - ACUTE AND CHR RESP FAILURE, UNSP W HYPOXIA OR HYPERCAPNIA Qualifiers: Respiratory failure complication: hypoxia Qualified Code(s): J96.21 - Acute and chronic respiratory failure with hypoxia (3) Allergy to sulfa drugs Code(s): Z88.2 - ALLERGY STATUS TO SULFONAMIDES STATUS (4) Anemia Code(s): D64.9 - ANEMIA, UNSPECIFIED (5) Chronic respiratory failure with hypoxia Code(s): J96.11 - CHRONIC RESPIRATORY FAILURE WITH HYPOXIA (7) Quadriplegia Code(s): G82.50 - QUADRIPLEGIA, UNSPECIFIED Assessment/Plan SUSPECT MAJORITY OF DISTRESS WAS CAUSED BY MUCOUS PLUGGING CXR DOESN'T SHOW AN INFILTRATE MULTIPLE CO-MORBIDITIES LISTED IN H/P WOULD VIGOROUSLY SUCTION PATIENT CONTINUE BRONCHODILATORS/O2 VIA TRACH COLLAR ANTIBIOTICS GIVEN IN ER BLOOD CULTURES PENDING WILL FOLLOW THANK YOU Patt FLANAGAN MD
--- NOTE | 2018-11-11 18:24 | PN ---
Physical Exam: SUBJECTIVE: Patient seen and examined at the bedside in the ER. OBJECTIVE: Vital Signs Period Temp Pulse Resp BP Sys/Oropeza Pulse Ox Last 24 Hr 65.5 F-98 F 68-86 12-21 99-130/61-76 96-99 GENERAL: The patient is awake in no acute distress. HEAD: Normal with no signs of trauma. NECK: Tracheostomy tube with some bloody d/c out of it. Could not assess anything further, pt was getting an echo at the time. Reviewed echo with tech preliminarily and looked fine. Laboratory Results - last 24 hr 11/10/18 11/10/18 11/10/18 21:45 21:45 21:45 WBC 10.2 H RBC 4.21 Hgb 13.3 Hct 38.8 D MCV 92.1 MCH 31.6 MCHC 34.3 RDW 15.8 Plt Count 252 D MPV 10.2 D Absolute Neuts (auto) 7.2 Neutrophils % 70.5 D Lymphocytes % 17.4 D Monocytes % 4.4 Eosinophils % 7.1 H D Basophils % 0.6 Nucleated RBC % 0 PT with INR INR PTT (Actin FS) 39.1 H Anticoagulation Therapy Puncture Site ABG pH ABG pCO2 at Pt Temp ABG pO2 at Pt Temp ABG HCO3 ABG O2 Sat (Measured) ABG O2 Content ABG Base Excess Dawit Test Carboxyhemoglobin Methemoglobin O2 Delivery Device Oxygen Flow Rate Vent Mode Vent Rate Mechanical Rate Pressure Support Vent Sodium 137 Potassium 5.0 Chloride 100 Carbon Dioxide 30 Anion Gap 7 L BUN 15.0 Creatinine 0.7 Est GFR (CKD-EPI)AfAm 127.53 Est GFR (CKD-EPI)NonAf 110.04 Random Glucose 115 H Lactic Acid Calcium 8.8 Magnesium 2.9 H Total Bilirubin 0.5 AST 94 H ALT 80 H Alkaline Phosphatase 243 H Creatine Kinase 880 H Creatine Kinase Index 1.4 CK-MB (CK-2) 12.7 H Troponin I < 0.02 B-Natriuretic Peptide 48.3 Total Protein 8.3 H Albumin 3.3 L 11/10/18 11/10/18 11/10/18 21:50 21:50 22:00 WBC RBC Hgb Hct MCV MCH MCHC RDW Plt Count MPV Absolute Neuts (auto) Neutrophils % Lymphocytes % Monocytes % Eosinophils % Basophils % Nucleated RBC % PT with INR INR PTT (Actin FS) Anticoagulation Therapy No Result Required. Puncture Site Left radial ABG pH 7.47 H ABG pCO2 at Pt Temp 39.4 ABG pO2 at Pt Temp 171 H ABG HCO3 28.1 H ABG O2 Sat (Measured) 99.9 H ABG O2 Content 19.0 ABG Base Excess 4.6 H Dawit Test Positive Carboxyhemoglobin 1.3 Methemoglobin 0.2 O2 Delivery Device No Result Required. Oxygen Flow Rate 6l Vent Mode No Result Required. Vent Rate No Result Required. Mechanical Rate No Result Required. Pressure Support Vent No Result Required. Sodium Potassium Chloride Carbon Dioxide Anion Gap BUN Creatinine Est GFR (CKD-EPI)AfAm Est GFR (CKD-EPI)NonAf Random Glucose Lactic Acid 1.5 Calcium Magnesium Total Bilirubin AST ALT Alkaline Phosphatase Creatine Kinase Creatine Kinase Index CK-MB (CK-2) Troponin I B-Natriuretic Peptide Total Protein Albumin 11/11/18 11/11/18 11/11/18 07:00 07:00 07:00 WBC 5.4 RBC 4.08 Hgb 12.8 Hct 37.3 MCV 91.4 MCH 31.3 MCHC 34.3 RDW 15.6 Plt Count 251 MPV 9.3 Absolute Neuts (auto) 4.5 Neutrophils % 82.8 Lymphocytes % 16.2 Monocytes % 0.6 L D Eosinophils % 0.1 D Basophils % 0.3 Nucleated RBC % 0 PT with INR 12.30 INR 1.04 PTT (Actin FS) 34.2 Anticoagulation Therapy Puncture Site ABG pH ABG pCO2 at Pt Temp ABG pO2 at Pt Temp ABG HCO3 ABG O2 Sat (Measured) ABG O2 Content ABG Base Excess Dawit Test Carboxyhemoglobin Methemoglobin O2 Delivery Device Oxygen Flow Rate Vent Mode Vent Rate Mechanical Rate Pressure Support Vent Sodium 136 Potassium 3.8 Chloride 101 Carbon Dioxide 30 Anion Gap 6 L BUN 11.3 Creatinine 0.5 L Est GFR (CKD-EPI)AfAm 146.45 Est GFR (CKD-EPI)NonAf 126.36 Random Glucose 133 H Lactic Acid Calcium 9.1 Magnesium 2.9 H Total Bilirubin 0.3 AST 44 H ALT 67 H Alkaline Phosphatase 231 H Creatine Kinase 912 H Creatine Kinase Index 1.6 CK-MB (CK-2) 15.4 H Troponin I 0.05 B-Natriuretic Peptide Total Protein 8.2 Albumin 3.3 L Active Medications Generic Name Dose Route Start Last Admin Trade Name Freq PRN Reason Stop Dose Admin Acetylcysteine 600 mg 11/11/18 20:00 Mucomyst 20 Oral / Inh Use Only* NEB RBID [facility] Albuterol Sulfate 1 amp 11/11/18 13:55 Ventolin 0.083% Nebulizer Soln - NEB Q6H PRN SHORT OF BREATH/WHEEZING Albuterol/Ipratropium 1 amp 11/11/18 08:00 11/11/18 17:00 Duoneb - NEB 1 amp RQID [facility] Administration Baclofen 10 mg 11/11/18 06:00 11/11/18 14:52 Lioresal - GT 10 mg TID [facility] Administration Bisacodyl 10 mg 11/11/18 05:18 Dulcolax Suppository - RC Q24H PRN CONSTIPATION Cholecalciferol 2,000 unit 11/11/18 22:00 Vitamin D3 - GT HS [facility] Enoxaparin Sodium 30 mg 11/11/18 10:00 11/11/18 09:38 Lovenox - SQ 30 mg DAILY [facility] Administration Azithromycin 250 mg/ Dextrose 250 mls @ 250 mls/hr 11/11/18 10:00 11/11/18 09 :32 IVPB 250 mls/hr DAILY [facility] Administration Sodium Chloride 1,000 mls @ 75 mls/hr 11/11/18 01:00 11/11/18 01:27 Normal Saline - IV 75 mls/hr ASDIR [facility] Administration Clindamycin Phosphate 300 mg in 50 mls @ 104 mls/hr 11/11/18 18:00 Cleocin 300 Mg Premix Ivpb IVPB Q8H-IV [facility] Protocol Non-Formulary Medication 24 mcg 11/11/18 10:00 Lubiprostone [Amitiza] GT BID [facility] ASSESSMENT/PLAN: This is a 48 y/o nonverbal male (from [facility]) with h/o mental retardation, functional quadriplegia, recurrent tracheitis, seizure Disorder, microcephaly, constipation, and congenital quadriplegia, who presented with hypoxia and was found to have mucus plugging and hypothermia. # Acute respiratory failure 2/2 mucus plugging and aspiration PNA - continuing clinda and azithro to cover for aspiration PNA (anaerobes) and for CAP. - following blood cx's - [place] hugger as needed to keep temp >97 - duonebs q6hPRN - added Mucomyst - pulm consult (Dr. Bone)- most likely due to mucus plugging, CXR showed no infiltrate, treating for sepsis, c/w BD's, await cx's. #Hypothermia/Sepsis - tried to contact [facility] to ask about base line temp but they werent available, will try again later. - cont PNA treatment - [place] marie #Metabolic alkalosis: - likely contraction alkalosis due to volume depletion - pt on IVF #Mild Rhabdomyolysis - Potassium- 5 which goes with our rhabdo dx - IVF 75mL/hr NS and monitor CPK level -CPK 880 #Transaminitis: - chronic - trending down - US reviewed. - will continue to trend #H/o seizures - not on any seizure meds per [facility] records #DVT PX : 30mg SQ dailys #FEN - IV NS 75ml/hr - will monitor lytes especially K - npo for aspiration precautions Visit type - Emergency Visit Emergency Visit: Yes ED Registration Date: 11/11/18 Care time: The patient presented to the Emergency Department on the above date and was hospitalized for further evaluation of their emergent condition. - New Patient This patient is new to me today: Yes Date on this admission: 11/12/18 - Critical Care Critical Care patient: No - Discharge Referral Referred to [facility] Med P.C.: No ATTENDING PHYSICIAN STATEMENT I saw and evaluated the patient. I reviewed the resident's note and discussed the case with the resident. I agree with the resident's findings and plan as documented. SUBJECTIVE: OBJECTIVE: ASSESSMENT AND PLAN:
[2018-11-11 18:42] VITALS: BMI 24.5
[2018-11-11] MEDS: CLINDAMYCIN 300 MG PREMIX IVPB 300 MG/50 ML BAG IVPB SCH (19:12)
[2018-11-11] MEDS: ALBUTEROL SO4 0.083% IH SOL 2.5 MG/3 ML VIAL.NEB. NEB PRN (21:45)
[2018-11-11] MEDS: ACETYLCYSTEINE 20% 200MG/ML 4 ML VIAL *FOR ORAL / INH USE ONLY NEB SCH (21:45)
[2018-11-11] MEDS: CHOLECALCIFEROL (VIT D3) 1,000 UNIT (25 MCG) TABLET GT SCH (22:01)
[2018-11-12] MEDS: CLINDAMYCIN 300 MG PREMIX IVPB 300 MG/50 ML BAG IVPB SCH ×3 (02:04→17:44)
[2018-11-12] MEDS: SODIUM CHLORIDE 1,000 ML IV SCH (06:28)
[2018-11-12] MEDS: BACLOFEN 10 MG TABLET (FP) GT SCH ×3 (06:29→22:45)
[2018-11-12] MEDS: ALBUTEROL SO4 0.083% IH SOL 2.5 MG/3 ML VIAL.NEB. NEB PRN ×2 (08:00→20:10)
[2018-11-12] MEDS: ACETYLCYSTEINE 20% 200MG/ML 4 ML VIAL *FOR ORAL / INH USE ONLY NEB SCH ×2 (08:00→20:10)
[2018-11-12 09:23] LABS: HEMATOCRIT 35.8 % (35.4-49); HEMOGLOBIN 12.1 GM/dL (11.7-16.9); MCHC 33.8 g/dl (32.0-35.9); MEAN CELL VOLUME 91.6 fl (80-96); MEAN PLT VOLUME 9.4 fl (7.5-11.1); PLATELET COUNT 238 K/MM3 (134-434); RBC 3.91 M/mm3 (4.00-5.60); WHITE BLOOD COUNT 6.6 K/mm3 (4.0-10.0)
[2018-11-12] MEDS: ENOXAPARIN NA (PORCINE) 30 MG/0.3 ML DISP.SYRIN SQ SCH (09:44)
[2018-11-12 09:47] LABS: ALBUMIN 3.1 g/dl (3.4-5.0); BILIRUBIN,TOTAL 0.5 mg/dL (0.2-1); BLOOD UREA NITROGEN 12.8 mg/dL (7-18); CALCIUM 8.6 mg/dL (8.5-10.1); CREATININE 0.6 mg/dL (0.55-1.3); POTASSIUM 3.6 mmol/L (3.5-5.1); TOT PROT 7.3 g/dl (6.4-8.2)
[2018-11-12] MEDS ORDERED: PT OWN MED DRAWER 7, Y5N ONE ×2 (11:53→17:35)
--- NOTE | 2018-11-12 12:34 | PN ---
Progress Note, Physician History of Present Illness: PULMONARY AWAKE,TACHYPNEIC,CONGESTED - Current Medication List Current Medications: Active Medications Acetylcysteine (Mucomyst 20 Oral / Inh Use Only*) 600 mg NEB RBID [facility] Last Admin: 11/12/18 08:00 Dose: 600 mg Albuterol Sulfate (Ventolin 0.083% Nebulizer Soln -) 1 amp NEB QID PRN PRN Reason: SHORT OF BREATH/WHEEZING Last Admin: 11/12/18 08:00 Dose: 1 amp Baclofen (Lioresal -) 10 mg GT TID [facility] Last Admin: 11/12/18 06:29 Dose: 10 mg Bisacodyl (Dulcolax Suppository -) 10 mg RC Q24H PRN PRN Reason: CONSTIPATION Cholecalciferol (Vitamin D3 -) 2,000 unit GT HS [facility] Last Admin: 11/11/18 22:01 Dose: 2,000 unit Enoxaparin Sodium (Lovenox -) 30 mg SQ DAILY [facility] Last Admin: 11/12/18 09:44 Dose: 30 mg Sodium Chloride (Normal Saline -) 1,000 mls @ 75 mls/hr IV ASDIR [facility] Last Admin: 11/12/18 06:28 Dose: Not Given Clindamycin Phosphate (Cleocin 300 Mg Premix Ivpb) 300 mg in 50 mls @ 104 mls/ hr IVPB Q8H-IV [facility]; Protocol Last Admin: 11/12/18 11:36 Dose: 104 mls/hr Non-Formulary Medication (Lubiprostone [Amitiza]) 24 mcg GT BID [facility] - Objective Vital Signs: Vital Signs Temperature 97.9 F 11/12/18 06:00 Pulse Rate 94 H 11/12/18 06:00 Respiratory Rate 20 11/12/18 06:00 Blood Pressure 127/74 11/12/18 06:00 O2 Sat by Pulse Oximetry (%) 98 11/11/18 22:26 Constitutional: Yes: Moderate Distress, Thin Eyes: Yes: WNL HENT: Yes: WNL Neck: Yes: Supple (TRACH) Cardiovascular: Yes: Tachycardia, S1, S2 Respiratory: Yes: Rhonchi (BILATERAL RHONCHI) Gastrointestinal: Yes: Normal Bowel Sounds, Soft Extremities: Yes: Shortened Edema: No Labs: CBC, BMP 11/12/18 08:45 11/12/18 08:45 INR, PTT INR 1.04 (0.83-1.09) 11/11/18 07:00 - ....Imaging Chest X-ray: Report Reviewed Assessment/Plan Problem List - Problems (1) Pneumonia Code(s): J18.9 - PNEUMONIA, UNSPECIFIED ORGANISM (2) Acute and chronic respiratory failure Code(s): J96.20 - ACUTE AND CHR RESP FAILURE, UNSP W HYPOXIA OR HYPERCAPNIA Qualifiers: Respiratory failure complication: hypoxia Qualified Code(s): J96.21 - Acute and chronic respiratory failure with hypoxia (3) Allergy to sulfa drugs Code(s): Z88.2 - ALLERGY STATUS TO SULFONAMIDES STATUS (4) Anemia Code(s): D64.9 - ANEMIA, UNSPECIFIED (5) Chronic respiratory failure with hypoxia Code(s): J96.11 - CHRONIC RESPIRATORY FAILURE WITH HYPOXIA (7) Quadriplegia Code(s): G82.50 - QUADRIPLEGIA, UNSPECIFIED Assessment/Plan ACUTE ON CHRONIC HYPOXEMIC RESPIRATORY FAILURE SUSPECT MAJORITY OF DISTRESS WAS CAUSED BY MUCOUS PLUGGING SEVERE MENTAL RETARDATION CEREBRAL PALSY CONGENITAL QUADRIPLEGIA CHRONIC TRACH DIASTOLIC DYSFUNCTION CHEST PT TRACHEAL SUCTIONING CONTINUE BRONCHODILATORS MUCOMYST O2 VIA TRACH COLLAR ANTIBIOTICS SHORT COURSE OF MEDROL CHEST X-RAY DR GORMAN
--- NOTE | 2018-11-12 13:20 | PN ---
Teaching Attending Note Name of Resident: Bisi Isabel ATTENDING PHYSICIAN STATEMENT I saw and evaluated the patient. I reviewed the resident's note and discussed the case with the resident. I agree with the resident's findings and plan as documented. SUBJECTIVE: No events over night . OBJECTIVE: NAD , non verbal , awake. CV : RRR. Lungs: CTAB ABd : soft , NT, distended , + BS . PEG in place , with no skin changes around it Assessment/Plan: 48 y/o male with h/o MR, non verbal, recurrent tracheitis , seizure Disorder, microcephaly, seizure disorder, constipation, and congenital quadriplegia who presented with hypoxia and was found to have a mucus plugging and hypothermia 1- Acute respiratory failure: due to mucus plugging +/_ aspiration PNA - team spoke to [place] staff. patient is intermittently hypotehrmic at his base line. - dc azithro and cont clinda to complete 5 days total - blood cx neg to date - breathing treatment and Mucomyst at dc - started on steroids by pulm - follow repeat Cxray 2- Hypothermia: as above 3- Mild Rhabdomyolysis : dc IVF. CPK improved 4- Transaminitis: chronic . trending down . 5- h/o seizures: not on any seizure meds per [place] records DVT px HLOC
[2018-11-12] MEDS: methylPREDNISolone NA SUCC 40 MG/1 ML VIAL IVPUSH SCH ×2 (14:19→17:44)
--- NOTE | 2018-11-12 17:22 | PN ---
Physical Exam: SUBJECTIVE: Patient seen and examined at the bedside. Pt is nonverbal but spoke to nurse heavy equipment service manager at [place] and informed me pts hypothermic status is normal for him. However, mucus plugging is not and to not suction him often because that irritates his mucosa and can result in the bloody d/c. OBJECTIVE: Vital Signs Period Temp Pulse Resp BP Sys/Oropeza Pulse Ox Last 24 Hr 93.5 F-97.9 F 50-94 18-20 95-127/56-74 97-98 GENERAL: The patient is awake, coughing up bloody, yellow discharge through trach. HEAD: Normal with no signs of trauma. NECK: Tracheostomy in place LUNGS: Breath sounds decreased, wheezing. HEART: Regular rate and rhythm, S1, S2 without murmur, rub or gallop. ABDOMEN: Soft, nontender, nondistended, normoactive bowel sounds, no guarding, no rebound. EXTREMITIES: warm, no edema. scoliotic back. NEUROLOGICAL: MR patient, nonverbal SKIN: no rashes or lesions noted Laboratory Results - last 24 hr 11/12/18 11/12/18 08:45 08:45 WBC 6.6 RBC 3.91 L Hgb 12.1 Hct 35.8 MCV 91.6 MCH 31.0 MCHC 33.8 RDW 16.0 H Plt Count 238 MPV 9.4 Sodium 144 Potassium 3.6 Chloride 109 H Carbon Dioxide 28 Anion Gap 7 L BUN 12.8 Creatinine 0.6 Est GFR (CKD-EPI)AfAm 135.87 Est GFR (CKD-EPI)NonAf 117.23 Random Glucose 71 L Calcium 8.6 Total Bilirubin 0.5 AST 40 H ALT 57 Alkaline Phosphatase 202 H Creatine Kinase 495 H Creatine Kinase Index 2.0 CK-MB (CK-2) 10.2 H Total Protein 7.3 Albumin 3.1 L Active Medications Generic Name Dose Route Start Last Admin Trade Name Freq PRN Reason Stop Dose Admin Acetylcysteine 600 mg 11/11/18 20:00 11/12/18 08:00 Mucomyst 20 Oral / Inh Use Only* NEB 600 mg RBID [facility] Administration Albuterol Sulfate 1 amp 11/11/18 21:36 11/12/18 08:00 Ventolin 0.083% Nebulizer Soln - NEB 1 amp QID PRN Administration SHORT OF BREATH/WHEEZING Baclofen 10 mg 11/11/18 06:00 11/12/18 13:46 Lioresal - GT 10 mg TID [facility] Administration Bisacodyl 10 mg 11/11/18 05:18 Dulcolax Suppository - RC Q24H PRN CONSTIPATION Cholecalciferol 2,000 unit 11/11/18 22:00 11/11/18 22:01 Vitamin D3 - GT 2,000 unit HS [facility] Administration Enoxaparin Sodium 30 mg 11/11/18 10:00 11/12/18 09:44 Lovenox - SQ 30 mg DAILY [facility] Administration Clindamycin Phosphate 300 mg in 50 mls @ 104 mls/hr 11/11/18 18:00 11/12/18 11:36 Cleocin 300 Mg Premix Ivpb IVPB 104 mls/hr Q8H-IV [facility] Administration Protocol Methylprednisolone Sodium Succinate 40 mg 11/12/18 12:45 11/12/18 14:19 Solu-Medrol - IVPUSH 40 mg Q8H-IV [facility] Administration Non-Formulary Medication 24 mcg 11/11/18 10:00 Lubiprostone [Amitiza] GT BID [facility] ASSESSMENT/PLAN: This is a 48 y/o nonverbal male (from [facility]) with h/o mental retardation, functional quadriplegia, recurrent tracheitis, seizure Disorder, microcephaly, constipation, and congenital quadriplegia, who presented with hypoxia and was found to have mucus plugging and hypothermia. # Acute respiratory failure 2/2 mucus plugging and aspiration PNA - continuing clinda for a total of 3 more days to cover for aspiration PNA ( anaerobes). D/c azithro bc no longer Rx for CAP given no infiltrate on CXR. - following blood cx's - [place] hugger as needed to keep temp >97 - duonebs q6hPRN - added Mucomyst - pulm consult (Dr. Bone)- most likely due to mucus plugging, CXR showed no infiltrate, treating for sepsis, c/w BD's, await cx's. #Hypothermia/Sepsis - hypothermic at baseline - temp no longer hypothermic - cont asp PNA treatment w clindamycin - [place] katygger #Metabolic alkalosis: - likely contraction alkalosis due to volume depletion - pt on IVF #Mild Rhabdomyolysis - Potassium- 5-> 3.6 - IVF 75mL/hr NS and monitor CPK level - 912->495 so improving -CKMB- 15.4->10.2 #Transaminitis: - chronic - trending down Tbili-0.5, AST/ALT: 44,62-> 40,57 ALP- 231-> 202 - will continue to trend #H/o seizures - not on any seizure meds per [place] records #DVT PX : 30mg SQ dailys #FEN - IV NS 75ml/hr - will monitor lytes especially K - npo for aspiration precautions Dispo: spoke to attending physician at [place] (Dr. Ponce) who agreed to accept transfer back to [place]. However, when pulmonary (Dr. Paz) evaluated the patient he found him to be tachypnic and started him on steroids. Spoke to sample case porter and stopped transfer order from continuing. Will continue to monitor breathing and Sao2 status. Visit type - Emergency Visit Emergency Visit: Yes ED Registration Date: 11/11/18 Care time: The patient presented to the Emergency Department on the above date and was hospitalized for further evaluation of their emergent condition. - New Patient This patient is new to me today: No - Critical Care Critical Care patient: No - Discharge Referral Referred to [facility] Med P.C.: No ATTENDING PHYSICIAN STATEMENT I saw and evaluated the patient. I reviewed the resident's note and discussed the case with the resident. I agree with the resident's findings and plan as documented. SUBJECTIVE: OBJECTIVE: ASSESSMENT AND PLAN:
[2018-11-12] MEDS: AZITHROMYCIN IVPB 250 MG in DEXTROSE 5%-WATER - 250 ML IVPB SCH (20:05)
[2018-11-12] MEDS: CHOLECALCIFEROL (VIT D3) 1,000 UNIT (25 MCG) TABLET GT SCH (22:45)
[2018-11-13] MEDS: CLINDAMYCIN 300 MG PREMIX IVPB 300 MG/50 ML BAG IVPB SCH ×3 (02:43→18:02)
[2018-11-13] MEDS: methylPREDNISolone NA SUCC 40 MG/1 ML VIAL IVPUSH SCH ×2 (02:43→09:17)
[2018-11-13] MEDS: BACLOFEN 10 MG TABLET (FP) GT SCH ×3 (05:41→23:11)
[2018-11-13] MEDS: ACETYLCYSTEINE 20% 200MG/ML 4 ML VIAL *FOR ORAL / INH USE ONLY NEB SCH ×2 (08:49→21:15)
[2018-11-13] MEDS ORDERED: PT OWN MED DRAWER 7, Y5N ONE ×2 (09:15→17:19)
[2018-11-13] MEDS: ENOXAPARIN NA (PORCINE) 30 MG/0.3 ML DISP.SYRIN SQ SCH (09:17)
--- NOTE | 2018-11-13 09:44 | PN ---
Progress Note, Physician History of Present Illness: pulmonary awake,less congested,-resp distress - Current Medication List Current Medications: Active Medications Acetylcysteine (Mucomyst 20 Oral / Inh Use Only*) 600 mg NEB RBID [facility] Last Admin: 11/13/18 08:49 Dose: 600 mg Albuterol Sulfate (Ventolin 0.083% Nebulizer Soln -) 1 amp NEB QID PRN PRN Reason: SHORT OF BREATH/WHEEZING Last Admin: 11/12/18 20:10 Dose: 1 amp Baclofen (Lioresal -) 10 mg GT TID [facility] Last Admin: 11/13/18 05:41 Dose: 10 mg Bisacodyl (Dulcolax Suppository -) 10 mg RC Q24H PRN PRN Reason: CONSTIPATION Cholecalciferol (Vitamin D3 -) 2,000 unit GT HS [facility] Last Admin: 11/12/18 22:45 Dose: 2,000 unit Enoxaparin Sodium (Lovenox -) 30 mg SQ DAILY [facility] Last Admin: 11/13/18 09:17 Dose: 30 mg Clindamycin Phosphate (Cleocin 300 Mg Premix Ivpb) 300 mg in 50 mls @ 104 mls/ hr IVPB Q8H-IV [facility]; Protocol Last Admin: 11/13/18 09:21 Dose: 104 mls/hr Methylprednisolone Sodium Succinate (Solu-Medrol -) 40 mg IVPUSH Q8H-IV [facility] Last Admin: 11/13/18 02:43 Dose: 40 mg Non-Formulary Medication (Lubiprostone [Amitiza]) 24 mcg GT BID [facility] - Objective Vital Signs: Vital Signs Temperature 98.5 F 11/13/18 09:01 Pulse Rate 110 H 11/13/18 09:36 Respiratory Rate 20 11/13/18 09:01 Blood Pressure 126/69 11/13/18 09:01 O2 Sat by Pulse Oximetry (%) 96 11/13/18 09:36 Constitutional: Yes: Calm, Thin Eyes: Yes: WNL HENT: Yes: WNL Neck: Yes: WNL Cardiovascular: Yes: Regular Rate and Rhythm, S1, S2 Respiratory: Yes: Rhonchi (less rhonchi wild) Gastrointestinal: Yes: Normal Bowel Sounds, Soft Extremities: Yes: Shortened, Other (contracted) Edema: No Labs: - ....Imaging Chest X-ray: Report Reviewed, Image Reviewed Assessment/Plan Problem List - Problems (1) Pneumonia Code(s): J18.9 - PNEUMONIA, UNSPECIFIED ORGANISM (2) Acute and chronic respiratory failure Code(s): J96.20 - ACUTE AND CHR RESP FAILURE, UNSP W HYPOXIA OR HYPERCAPNIA Qualifiers: Respiratory failure complication: hypoxia Qualified Code(s): J96.21 - Acute and chronic respiratory failure with hypoxia (3) Allergy to sulfa drugs Code(s): Z88.2 - ALLERGY STATUS TO SULFONAMIDES STATUS (4) Anemia Code(s): D64.9 - ANEMIA, UNSPECIFIED (5) Chronic respiratory failure with hypoxia Code(s): J96.11 - CHRONIC RESPIRATORY FAILURE WITH HYPOXIA (7) Quadriplegia Code(s): G82.50 - QUADRIPLEGIA, UNSPECIFIED Assessment/Plan ACUTE ON CHRONIC HYPOXEMIC RESPIRATORY FAILURE SUSPECT MAJORITY OF DISTRESS WAS CAUSED BY MUCOUS PLUGGING SEVERE MENTAL RETARDATION CEREBRAL PALSY CONGENITAL QUADRIPLEGIA CHRONIC TRACH DIASTOLIC DYSFUNCTION CHEST PT TRACHEAL SUCTIONING CONTINUE BRONCHODILATORS MUCOMYST O2 VIA TRACH COLLAR ANTIBIOTICS PREDNISONE CHEST X-RAY DR GORMAN
[2018-11-13] MEDS: predniSONE 20 MG TABLET (UD) PO SCH (12:29)
--- NOTE | 2018-11-13 14:21 | PN ---
Progress Note (short form) - Note Progress Note: Subjective: no events Objective: Vital Signs: Last Vital Signs Temp Pulse Resp BP Pulse Ox 99.0 F 89 20 121/64 96 11/13/18 14:15 11/13/18 14:15 11/13/18 14:15 11/13/18 14:15 11/13/18 09:36 Physical Exam: NAD , non verbal , awake. CV : RRR. Lungs: CTAB ABd : soft , NT, distended , + BS . PEG in place , with no skin changes around it Assessment/Plan: 48 y/o male with h/o MR, non verbal, recurrent tracheitis , seizure Disorder, microcephaly, seizure disorder, constipation, and congenital quadriplegia who presented with hypoxia and was found to have a mucus plugging and hypothermia 1- Acute respiratory failure: due to mucus plugging +/_ aspiration PNA cont clinda to complete 5 days total - blood cx neg to date - d/w pulm, prednisone - cxray reviwed. 2- Hypothermia: at base line intermittently hypothermic 3- Mild Rhabdomyolysis : CPK improved 4- Transaminitis: chronic . trending down . 5- h/o seizures: not on any seizure meds per [facility] records 6- TF: adjust as per dietitian recs DVT px can't reach [place] to transfer him back Visit type - Emergency Visit Emergency Visit: Yes ED Registration Date: 11/11/18 Care time: The patient presented to the Emergency Department on the above date and was hospitalized for further evaluation of their emergent condition. - New Patient This patient is new to me today: No - Critical Care Critical Care patient: No
[2018-11-13] MEDS: ALBUTEROL SO4 0.083% IH SOL 2.5 MG/3 ML VIAL.NEB. NEB PRN (21:15)
[2018-11-13] MEDS: CHOLECALCIFEROL (VIT D3) 1,000 UNIT (25 MCG) TABLET GT SCH (23:11)
[2018-11-14] MEDS: CLINDAMYCIN 300 MG PREMIX IVPB 300 MG/50 ML BAG IVPB SCH ×2 (02:03→09:46)
[2018-11-14] MEDS: BACLOFEN 10 MG TABLET (FP) GT SCH ×3 (06:05→23:10)
[2018-11-14] MEDS: ACETYLCYSTEINE 20% 200MG/ML 4 ML VIAL *FOR ORAL / INH USE ONLY NEB SCH ×2 (07:35→20:40)
[2018-11-14] MEDS: ALBUTEROL SO4 0.083% IH SOL 2.5 MG/3 ML VIAL.NEB. NEB PRN ×2 (07:35→20:40)
[2018-11-14] MEDS: ENOXAPARIN NA (PORCINE) 30 MG/0.3 ML DISP.SYRIN SQ SCH (09:46)
[2018-11-14] MEDS: predniSONE 20 MG TABLET (UD) PO SCH (09:46)
--- NOTE | 2018-11-14 12:36 | PN ---
Progress Note (short form) - Note Progress Note: PULMONARY Pt nonverbal. No fevers recorded. Vital Signs Period Temp Pulse Resp BP Sys/Oropeza Pulse Ox Last 24 Hr 97.3 F-99.0 F 50-89 18-20 90-121/57-78 96 Gen: NAD on trach collar Heart: RRR Lung: scattered rhonchi Abd: soft, nontender Ext: no edema CBC, BMP 11/12/18 08:45 11/12/18 08:45 Active Medications Acetylcysteine (Mucomyst 20 Oral / Inh Use Only*) 600 mg NEB RBID [facility] Last Admin: 11/14/18 07:35 Dose: 600 mg Albuterol Sulfate (Ventolin 0.083% Nebulizer Soln -) 1 amp NEB QID PRN PRN Reason: SHORT OF BREATH/WHEEZING Last Admin: 11/14/18 07:35 Dose: 1 amp Baclofen (Lioresal -) 10 mg GT TID [facility] Last Admin: 11/14/18 06:05 Dose: 10 mg Bisacodyl (Dulcolax Suppository -) 10 mg RC Q24H PRN PRN Reason: CONSTIPATION Cholecalciferol (Vitamin D3 -) 2,000 unit GT HS [facility] Last Admin: 11/13/18 23:11 Dose: 2,000 unit Enoxaparin Sodium (Lovenox -) 30 mg SQ DAILY [facility] Last Admin: 11/14/18 09:46 Dose: 30 mg Clindamycin Phosphate (Cleocin 300 Mg Premix Ivpb) 300 mg in 50 mls @ 104 mls/ hr IVPB Q8H-IV [facility]; Protocol Last Admin: 11/14/18 09:46 Dose: 104 mls/hr Non-Formulary Medication (Lubiprostone [Amitiza]) 24 mcg GT BID [facility] Prednisone (Deltasone -) 40 mg PO DAILY [facility] Last Admin: 11/14/18 09:46 Dose: 40 mg A/P Acute on Chronic Hypoxic Respiratory Failure r/o Aspiration Pneumonia Mental Retardation Cerebral Palsy Functional Quadriplegia - continue antibiotics - inhaled bronchodilators - prednisone taper - chest PT - aspiration precautions - O2 to keep Spo2 >90% - DVT prophylaxis
--- NOTE | 2018-11-14 13:55 | PN ---
Teaching Attending Note Name of Resident: Usman Crawford ATTENDING PHYSICIAN STATEMENT I saw and evaluated the patient. I reviewed the resident's note and discussed the case with the resident. I agree with the resident's findings and plan as documented. SUBJECTIVE: no events over night OBJECTIVE: NAD , non verbal , awake. CV : RRR. Lungs: CTAB ABd : soft , NT, distended , + BS . PEG in place , with no skin changes around it Assessment/Plan: 48 y/o male with h/o MR, non verbal, recurrent tracheitis , seizure Disorder, microcephaly, seizure disorder, constipation, and congenital quadriplegia who presented with hypoxia and was found to have a mucus plugging and hypothermia 1- Acute respiratory failure: due to mucus plugging +/_ aspiration PNA cont clinda to complete 5 days total - blood cx neg to date x 72 hrs - cont prednisone taper . 2- Hypothermia: at base line intermittently hypothermic 3- Mild Rhabdomyolysis : CPK improved 4- Transaminitis: chronic . trending down . 5- h/o seizures: not on any seizure meds per [facility] records 6- TF: cont at dc DVT px dc to [facility] today
--- NOTE | 2018-11-14 17:47 | PN ---
Physical Exam: SUBJECTIVE: Patient seen and examined at bedside this AM. No acute events overnight. OBJECTIVE: Vital Signs Period Temp Pulse Resp BP Sys/Oropeza Pulse Ox Last 24 Hr 97.3 F-98.8 F 50-88 18-18 90-131/57-80 96-98 GENERAL: The patient is nonverbal. NECK: Tracheostomy tube in place, no secretions. LUNGS: Breath sounds improving, no wheezing or crackles. HEART: Regular rate and rhythm, S1, S2 without murmur, rub or gallop. ABDOMEN: Soft, nontender, nondistended, normoactive bowel sounds, no guarding, no rebound. EXTREMITIES: b/l upper and lower extremities contractures, no edema. Active Medications Generic Name Dose Route Start Last Admin Trade Name Freq PRN Reason Stop Dose Admin Acetylcysteine 600 mg 11/11/18 20:00 11/14/18 07:35 Mucomyst 20 Oral / Inh Use Only* NEB 600 mg RBID TARIQ Administration Albuterol Sulfate 1 amp 11/11/18 21:36 11/14/18 07:35 Ventolin 0.083% Nebulizer Soln - NEB 1 amp QID PRN Administration SHORT OF BREATH/WHEEZING Baclofen 10 mg 11/11/18 06:00 11/14/18 14:37 Lioresal - GT 10 mg TID TARIQ Administration Bisacodyl 10 mg 11/11/18 05:18 Dulcolax Suppository - RC Q24H PRN CONSTIPATION Cholecalciferol 2,000 unit 11/11/18 22:00 11/13/18 23:11 Vitamin D3 - GT 2,000 unit HS TARIQ Administration Enoxaparin Sodium 30 mg 11/11/18 10:00 11/14/18 09:46 Lovenox - SQ 30 mg DAILY TARIQ Administration Clindamycin Phosphate 300 mg in 50 mls @ 104 mls/hr 11/11/18 18:00 11/14/18 09:46 Cleocin 300 Mg Premix Ivpb IVPB 104 mls/hr Q8H-IV TARIQ Administration Protocol Non-Formulary Medication 24 mcg 11/11/18 10:00 Lubiprostone [Amitiza] GT BID TARIQ Prednisone 40 mg 11/13/18 10:30 11/14/18 09:46 Deltasone - PO 40 mg DAILY TARIQ Administration ASSESSMENT/PLAN: This is a 48 y/o nonverbal male (from [facility]) with h/o mental retardation, functional quadriplegia, recurrent tracheitis, seizure Disorder, microcephaly, constipation, and congenital quadriplegia, who presented with hypoxia and was found to have mucus plugging and hypothermia. # Acute respiratory failure 2/2 mucus plugging and aspiration PNA - continuing clinda for a total of 3 for aspiration PNA (anaerobes). - following blood cx's - duonebs q6hPRN - pulm consult (Dr. Coto)- c/w BD's, continue steroid taper, Chest PT, aspiration precautions. #Hypothermia/Sepsis - hypothermic at baseline - temp no longer hypothermic - [place] marie #Metabolic alkalosis: - likely contraction alkalosis due to volume depletion - pt on IVF #Mild Rhabdomyolysis - Potassium- 5-> 3.6 - IVF 75mL/hr NS and monitor CPK level - 912->495 so improving -CKMB- 15.4->10.2 #Transaminitis: - chronic - trending down Tbili-0.5, AST/ALT: 44,62-> 40,57 ALP- 231-> 202 - will continue to trend #H/o seizures - not on any seizure meds per [facility] records #DVT PX : 30mg SQ dailys #FEN - IV NS 75ml/hr - will monitor lytes especially K - npo for aspiration precautions Dispo: was supposed to go back to [facility] today but wasnt accepted due to patient desaturating while off O2. Visit type - Emergency Visit Emergency Visit: Yes ED Registration Date: 11/11/18 Care time: The patient presented to the Emergency Department on the above date and was hospitalized for further evaluation of their emergent condition. - New Patient This patient is new to me today: No - Critical Care Critical Care patient: No - Discharge Referral Referred to [facility] No ATTENDING PHYSICIAN STATEMENT I saw and evaluated the patient. I reviewed the resident's note and discussed the case with the resident. I agree with the resident's findings and plan as documented. SUBJECTIVE: OBJECTIVE: ASSESSMENT AND PLAN:
[2018-11-14] MEDS: CHOLECALCIFEROL (VIT D3) 1,000 UNIT (25 MCG) TABLET GT SCH (23:10)
[2018-11-15] MEDS: BACLOFEN 10 MG TABLET (FP) GT SCH ×2 (05:11→13:27)
[2018-11-15 08:07] VITALS: BP 133/77; PULSE 80; TEMP 99.5
[2018-11-15] MEDS: ACETYLCYSTEINE 20% 200MG/ML 4 ML VIAL *FOR ORAL / INH USE ONLY NEB SCH (08:27)
[2018-11-15] MEDS: ALBUTEROL SO4 0.083% IH SOL 2.5 MG/3 ML VIAL.NEB. NEB PRN (08:27)
[2018-11-15] MEDS: predniSONE 20 MG TABLET (UD) PO SCH (10:17)
[2018-11-15] MEDS: ENOXAPARIN NA (PORCINE) 30 MG/0.3 ML DISP.SYRIN SQ SCH (10:17)
--- NOTE | 2018-11-15 12:12 | PN ---
Progress Note (short form) - Note Progress Note: PULMONARY Pt nonverbal. No fevers recorded. Vital Signs Period Temp Pulse Resp BP Sys/Oropeza Pulse Ox Last 24 Hr 98.3 F-99.5 F 64-80 18-20 103-133/50-80 94-98 Gen: NAD on trach collar Heart: RRR Lung: scattered rhonchi Abd: soft, nontender Ext: no edema CBC, BMP 11/12/18 08:45 11/12/18 08:45 Active Medications Acetylcysteine (Mucomyst 20 Oral / Inh Use Only*) 600 mg NEB RBID TARIQ Last Admin: 11/15/18 08:27 Dose: 600 mg Albuterol Sulfate (Ventolin 0.083% Nebulizer Soln -) 1 amp NEB QID PRN PRN Reason: SHORT OF BREATH/WHEEZING Last Admin: 11/15/18 08:27 Dose: 1 amp Baclofen (Lioresal -) 10 mg GT TID [facility] Last Admin: 11/15/18 05:11 Dose: 10 mg Bisacodyl (Dulcolax Suppository -) 10 mg RC Q24H PRN PRN Reason: CONSTIPATION Cholecalciferol (Vitamin D3 -) 2,000 unit GT HS [facility] Last Admin: 11/14/18 23:10 Dose: 2,000 unit Enoxaparin Sodium (Lovenox -) 30 mg SQ DAILY [facility] Last Admin: 11/15/18 10:17 Dose: 30 mg Non-Formulary Medication (Lubiprostone [Amitiza]) 24 mcg GT BID TARIQ Prednisone (Deltasone -) 40 mg PO DAILY [facility] Last Admin: 11/15/18 10:17 Dose: 40 mg A/P Acute on Chronic Hypoxic Respiratory Failure r/o Aspiration Pneumonia Mental Retardation Cerebral Palsy Functional Quadriplegia - completed antibiotics - inhaled bronchodilators - prednisone taper - chest PT - aspiration precautions - O2 to keep Spo2 >90% - DVT prophylaxis
--- NOTE | 2018-11-15 18:02 | PN ---
Teaching Attending Note Name of Resident: Usman Crawford ATTENDING PHYSICIAN STATEMENT I saw and evaluated the patient. I reviewed the resident's note and discussed the case with the resident. I agree with the resident's findings and plan as documented. SUBJECTIVE: No events over night . suctioned and was taken off O2, and his satO2 were in 90s. OBJECTIVE: NAD , non verbal , awake. CV : RRR. Lungs: minimal rales at bases ABd : soft , NT, distended , + BS . PEG in place , with no skin changes around it Assessment/Plan: 48 y/o male with h/o MR, non verbal, recurrent tracheitis , seizure Disorder, microcephaly, seizure disorder, constipation, and congenital quadriplegia who presented with hypoxia and was found to have a mucus plugging and hypothermia 1- Acute respiratory failure: due to mucus plugging +/_ aspiration PNA complete abx - cont prednisone taper . osorio snot require O2 2- Hypothermia: at base line intermittently hypothermic 3- Mild Rhabdomyolysis: CPK improved 4- Transaminitis: chronic . trending down . 5- h/o seizures: not on any seizure meds per [facility] records 6- TF: cont at dc DVT px dc to [facility]
--- NOTE | 2018-11-15 18:03 | DS ---
Physical Exam: SUBJECTIVE: Patient seen and examined at the bedside this AM. He was satting well on RA no secretions from the trach or respiratory distress. OBJECTIVE: Vital Signs Period Temp Pulse Resp BP Sys/Oropeza Pulse Ox Last 24 Hr 99.2 F-99.5 F 76-80 18-20 103-133/56-77 94-98 PHYSICAL EXAM GENERAL: The patient is nonverbal NECK: Tracheaostomy tube in place, no secretions. LUNGS: Breath sounds equal, clear to auscultation bilaterally, no wheezes, no crackles, no accessory muscle use. HEART: Regular rate and rhythm, S1, S2 without murmur, rub or gallop. ABDOMEN: Soft, nontender, nondistended, no guarding, no rebound. EXTREMITIES: 2+ pulses, warm, well-perfused, no edema. SKIN: Warm, dry, no rashes or lesions noted. LABS HOSPITAL COURSE: Date of Admission:11/11/18 This is a 48 y/o nonverbal male (from [facility] [place]) with h/o mental retardation, functional quadriplegia, recurrent tracheitis, seizure Disorder, microcephaly, constipation, and congenital quadriplegia, who was admitted for hypoxia due to mucus plugging. CXR was negative for any infiltrates while here. Pt was treated with clindamycin for suspected aspiration PNA given his poor respiratory status and was sent back to [place] on clindamycin 300 TID. While he was here he needed O2 humidified and mucomyst to break up his secretions but eventually he was able to maintain a saO2 over 92% off O2. Date of Discharge: 11/15/18 Minutes to complete discharge: 35 Discharge Summary Reason For Visit: PNEUMONIA Condition: Improved - Instructions Diet, Activity, Other Instructions: You were admitted for having low blood oxygen levels, mucus plug was suspected and also aspiration. We did some imaging (Xray) of your lungs and it did not show any infiltrate, however patient is at high risk for aspiration pneumonia so we are treating you with antibiotics in case there is an infection in your lungs. You will continue the antibiotics at [facility]. Antibiotics to continue at [place]: - Clindamycin by mouth 300mg three times a day (every 8 hours), for 2 more days ending (11/16). Medication to improve your lung function: Prednisone 30mg by mouth for 2 days (10mg X 3 pills) = 30mg Prednisone 20mg by mouth for one day (10mg X 2 pills)= 20mg Prednisone 10mg by mouth for one day (10mg X 1 pill)= 10mg Continue all your home meds as prescribed. Please follow up with your Primary care doctor in 1 week. 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 Return to the emergency room if you have any worsening of your currents symptoms : like chest pain, shortness of breath, fevers. Cont tube fees as per pre-admisison routine [facility] luck. Referrals: Tom Sloan MD [Non Staff, Medical] - 1 Week Disposition: HOME - Home Medications Comprehensive Discharge Medication List: Ambulatory Orders Baclofen 10 mg GT TID 01/29/16 Calcium Carbonate/Vitamin D3 [Oystercal-D 500 mg-400 Unit Tb] 2 tab GT HS Cholecalciferol (Vitamin D3) [Vitamin D3] 2,000 unit GT HS 01/29/16 Magnesium Hydrox 2400MG/30Ml [Milk of Magnesia -] 30 ml GT HS 01/29/16 Simethicone 40 mg GT TID 01/29/16 Bisacodyl Suppository [Dulcolax Suppository -] 10 mg RC ASDIR PRN 03/04/18 Albuterol 2.5/Ipratropium 0.5 [Duoneb -] 1 amp NEB RQID amp 03/08/18 Acetaminophen 10 gm GT PRN 11/11/18 Mag Carb/Aluminum Hydrox/Algin [Acid Gone Antacid Liquid] 1 tsp GT TID 11/11/18 Polyethylene Glycol [Polyox Wsr-301] 17 gm GT DAILY 11/11/18 Sodium Phosphate,Gallia-Dibasic [Fleet Enema] See Protocol MA ASDIR PRN 11/11/18 Clindamycin [Cleocin -] 300 mg PO Q8H #9 capsule 11/12/18 Lubiprostone [Amitiza] 24 mcg GT BID 11/14/18 Mag Carb/Aluminum Hydrox/Algin [Riginic Suspension] 5 ml GT TID 11/14/18 Dane-3/Dha/Epa/Fish Oil [Fish Oil 1,600 mg/5 ml Liquid] 1,000 mg GT BID Prednisone See Taper PO ASDIR #9 tablet 11/14/18 Scopolamine [Transderm-Scop] 1.5 mg TD ASDIR 11/14/18 Sennosides [Senna] 17.6 mg GT DAILY 11/14/18 This patient is new to me today: No Emergency Visit: No Critical Care patient: No - Discharge Referral Referred to [facility] No ATTENDING PHYSICIAN STATEMENT I saw and evaluated the patient. I reviewed the resident's note and discussed the case with the resident. I agree with the resident's findings and plan as documented. SUBJECTIVE: OBJECTIVE: ASSESSMENT AND PLAN:
[2018-11-16] MEDS ORDERED: predniSONE 20 MG TABLET (UD) PO SCH (10:00)
== END 2018-11-15 14:07 | disposition home or self-care (01) | DRG 189 ==
LOC: JER 20:47 → JERBED 11-11 00:18 → J5S 11-11 16:20
PROVIDERS: ADMIT Internal Medicine; ATTEND Internal Medicine
DX: J96.21 Acute and chronic respiratory failure with hypoxia (principal); G82.50 Quadriplegia, unspecified; J69.0 Pneumonitis due to inhalation of food and vomit; R53.2 Functional quadriplegia; F72 Severe intellectual disabilities; E87.3 Alkalosis; M62.82 Rhabdomyolysis; D64.9 Anemia, unspecified; Z93.0 Tracheostomy status; G80.8 Other cerebral palsy; E83.41 Hypermagnesemia; R74.0 Nonspecific elevation of levels of transaminase and lactic acid dehydrogenase [LDH]; T68.XXXA Hypothermia, initial encounter
CPT/HCPCS: 36415; 36600; 71045-TC-FY; 76705-TC; 80053; 82375; 82550; 82553; 82803; 83050; 83605; 83735; 83880; 84484; 85025; 85027; 85610; 85730; 87040; 93306-TC; 94640; 94761; 99285-25; J0475; J1100; J7030

== ENCOUNTER 2018-11-21 10:09 | Inpatient (IN) | payer OTHER ==
--- NOTE | 2018-11-21 10:33 | PDOC ---
History of Present Illness - General Stated Complaint: Shortness of Breath Time Seen by Provider: 11/21/18 10:32 Past History - Past Medical History Allergies/Adverse Reactions: Allergies Allergy/AdvReac Type Severity Reaction Status Date / Time Sulfa (Sulfonamide AdvReac Verified 11/21/18 15:11 Antibiotics) Home Medications: Ambulatory Orders Baclofen 10 mg GT TID 01/29/16 Calcium Carbonate/Vitamin D3 [Oystercal-D 500 mg-400 Unit Tb] 2 tab GT HS Cholecalciferol (Vitamin D3) [Vitamin D3] 2,000 unit GT HS 01/29/16 Magnesium Hydrox 2400MG/30Ml [Milk of Magnesia -] 30 ml GT HS 01/29/16 Simethicone 40 mg GT TID 01/29/16 Bisacodyl Suppository [Dulcolax Suppository -] 10 mg RC ASDIR PRN 03/04/18 Albuterol 2.5/Ipratropium 0.5 [Duoneb -] 1 amp NEB RQID amp 03/08/18 Acetaminophen 10 gm GT PRN 11/11/18 Mag Carb/Aluminum Hydrox/Algin [Acid Gone Antacid Liquid] 1 tsp GT TID 11/11/18 Polyethylene Glycol [Polyox Wsr-301] 17 gm GT DAILY 11/11/18 Sodium Phosphate,Anson-Dibasic [Fleet Enema] See Protocol MT ASDIR PRN 11/11/18 Clindamycin [Cleocin -] 300 mg PO Q8H #9 capsule 11/12/18 Lubiprostone [Amitiza] 24 mcg GT BID 11/14/18 Mag Carb/Aluminum Hydrox/Algin [Riginic Suspension] 5 ml GT TID 11/14/18 Entriken-3/Dha/Epa/Fish Oil [Fish Oil 1,600 mg/5 ml Liquid] 1,000 mg GT BID Prednisone See Taper PO ASDIR #9 tablet 11/14/18 Scopolamine [Transderm-Scop] 1.5 mg TD ASDIR 11/14/18 Sennosides [Senna] 17.6 mg GT DAILY 11/14/18 COPD: Yes (tracheostomy ) Disorders: Yes (gastrostomy) Psychiatric Problems: Yes (mental retardation) Seizures: Yes (EPILEPSY, seizure d/o) - Surgical History Abdominal Surgery: Yes (gastrostomy) Orthopedic Surgery: Yes (spinal fusion/hx osteoperosis left femur fx) - Immunization History Immunization Up to Date: Yes - Suicide/Smoking/Psychosocial Hx Smoking History: Unknown if ever smoked Have you smoked in the past 12 months: No Hx Alcohol Use: No Drug/Substance Use Hx: No Substance Use Type: None Hx Substance Use Treatment: No ED Treatment Course - LABORATORY CBC & Chemistry Diagram: 11/21/18 11:25 11/21/18 11:25 Medical Decision Making - Medical Decision Making The patient is a 48 year old male, with a significant PMH of severe MR, congenital quadriplegia, cerebral palsy, non verbal with chronic trach and chronic peg, bedbound/wheelchair, epilepsy disorder, microcephaly, optic nerve atrophy, severe kyphoscoliosis, recurring tracheitis, and recurring hypothermia , who presents to the ED [facility] from [place] for evaluation of food contents coming out of his trach. Patient unable to provide any history. His trach was suctioned by ED nurse upon arrival and subsequently still expelling food contents (yellow-white milky liquid) by the time I made it to the bedside. Aide at the bedside is unable to contribute any more history. ROS: unable to complete (severe MR) PE: General: Eyes open Head: +microcephaly Eyes: EOMI, sclera anicteric ENT: +Trach in place expelling yellow-white contents Neck: Normal ROM, supple Lungs: Diffuse rales present bilaterally Cardio: Regular rhythm, S1 and S2 present Abdomen: G tube in place. +distended, no grimacing observed upon palpation Extremities: Contracted SKIN: Warm, Dry, normal turgor Neurologic: Nonverbal; Unable to follow commands ED Courses/MDM: DDX including but not limited to Sepsis due to aspiration PNA, UTI, bacteremia Septic workup for two abnormal vital signs, tachycardia and tachypnea EKG CXR CT chest/abd/pelvis 11/21/18 10:33 Covered with vanc and zosyn 11/21/18 12:40 CBC WBC 9.6 K/mm3 (4.0-10.0) 11/21/18 11:25 RBC 4.29 M/mm3 (4.00-5.60) 11/21/18 11:25 Hgb 13.5 GM/dL (11.7-16.9) 11/21/18 11:25 Hct 39.3 % (35.4-49) 11/21/18 11:25 MCV 91.6 fl (80-96) 11/21/18 11:25 MCH 31.4 pg (25.7-33.7) 11/21/18 11:25 MCHC 34.3 g/dl (32.0-35.9) 11/21/18 11:25 RDW 16.1 % (11.9-15.9) H 11/21/18 11:25 Plt Count 275 K/MM3 (134-434) 11/21/18 11:25 MPV 8.7 fl (7.5-11.1) 11/21/18 11:25 Absolute Neuts (auto) 6.2 K/mm3 (1.5-8.0) 11/21/18 11:25 Neutrophils % 65.1 % (42.8-82.8) D 11/21/18 11:25 Lymphocytes % 18.7 % (8-40) 11/21/18 11:25 Monocytes % 15.1 % (3.8-10.2) H D 11/21/18 11:25 Eosinophils % 0.7 % (0-4.5) D 11/21/18 11:25 Basophils % 0.4 % (0-2.0) 11/21/18 11:25 Nucleated RBC % 0 % (0-0) 11/21/18 11:25 No leukocytosis CMP Sodium 134 mmol/L (136-145) L 11/21/18 11:25 Potassium 4.0 mmol/L (3.5-5.1) 11/21/18 11:25 Chloride 96 mmol/L (98-107) L 11/21/18 11:25 Carbon Dioxide 31 mmol/L (21-32) 11/21/18 11:25 Anion Gap 7 MMOL/L (8-16) L 11/21/18 11:25 BUN 20.1 mg/dL (7-18) H 11/21/18 11:25 Creatinine 0.7 mg/dL (0.55-1.3) 11/21/18 11:25 Est GFR (CKD-EPI)AfAm 127.53 11/21/18 11:25 Est GFR (CKD-EPI)NonAf 110.04 11/21/18 11:25 Random Glucose 107 mg/dL (74-106) H 11/21/18 11:25 Lactic Acid 1.5 mmol/L (0.4-2.0) 11/21/18 11:25 Calcium 8.7 mg/dL (8.5-10.1) 11/21/18 11:25 Total Bilirubin 0.3 mg/dL (0.2-1) 11/21/18 11:25 AST 45 U/L (15-37) H 11/21/18 11:25 ALT 49 U/L (13-61) 11/21/18 11:25 Alkaline Phosphatase 158 U/L (45-117) H 11/21/18 11:25 Troponin I < 0.02 ng/ml (0.00-0.05) 11/21/18 11:25 Total Protein 7.8 g/dl (6.4-8.2) 11/21/18 11:25 Albumin 3.3 g/dl (3.4-5.0) L 11/21/18 11:25 Electrolytes unremarkable BUN elevated Lactate normal Tpn undetectable AST mildly elevated CXR, per radiology: "A single view of the chest reveals trachestomy tube, spinal support hardware, weak inspiration with prominent mediastinum, clear lungs, and generalized abdominal distention. Free air is not seen. Correlation recommended. Sinc ethe prior recent exam there is no change of an adverse nature " 11/21/18 13:35 CT chest/abd/pelvis, per radiology:Contiguous axial scans were obtained followed with coronal/ sagittal reconstruction images.Compared to prior CT scan of the chest dated 03/04/2018 Motion/breathing artifacts are limiting evaluation of the lung. Previously visualized nodular opacity in superior segment of the right lower lobe has decreased in size now measuring 1 cm. Previously visualized of a focal nodular opacity in the right lung base, medially is less well visualized due to motion/breathing artifacts. Its size cannot be adequately evaluated on this exam. There are mild atelectatic changes in the left lung base. Cannot rule out superimposed pneumonic infiltrates. No pneumothorax or pleural effusion identified, bilaterally. Tracheostomy tube tip is in satisfactory position. The heart is within normal limits in size. No enlarged mediastinal or hilar lymph nodes are identified. In the abdomen and pelvis, there is diffuse air distention of the bowel loops mainly the colon. There is a moderate to large amount of fecal residue in the distal sigmoid colon down to the rectosigmoid junction measuring 10 cm in width consistent with impaction no free air or free fluid are identified. Evaluation of the liver , spleen, pancreas, both adrenal glands and both kidneys appear grossly unremarkable except for a tiny nonobstructing right renal stone. Moderate distention of the urinary bladder without wall thickening. Severe dextroscoliosis of the lower thoracic and lumbar spine with Seay rods again seen IMPRESSION: Motion/breathing artifacts are limiting evaluation of the lung, as described above. Mild atelectatic changes in the left lung base. Cannot rule out superimposed infiltrates. Findings consistent with impaction with significant diffuse dilatation of the colon and likely dilatation of the distal small bowel loops. However, there is no gross evidence of small bowel obstruction. Close follow-up is needed No pneumoperitoneum is identified. " Plan for admission 11/21/18 13:[address] Mcmanus who accepted patient for telemetry admission. 11/21/18 15:09 *DC/Admit/Observation/Transfer Diagnosis at time of Disposition: Aspiration pneumonia Qualifiers: Aspiration pneumonia type: due to regurgitated food Laterality: unspecified laterality Lung location: unspecified part of lung Qualified Code(s): J69.0 - Pneumonitis due to inhalation of food and vomit - Discharge Dispostion Condition at time of disposition: Guarded Decision to Admit order: Yes - Referrals - Patient Instructions - Post Discharge Activity
[2018-11-21 11:46] LABS: VENOUS PC02 42.4 mmHg (41-51); VENOUS PH 7.47 (7.31-7.41); VENOUS PO2 54.7 mmHg (30-40)
[2018-11-21 11:48] LABS: BASO % 0.4 % (0-2.0); EOS % 0.7 % (0-4.5); HEMATOCRIT 39.3 % (35.4-49); HEMOGLOBIN 13.5 GM/dL (11.7-16.9); LYMPH % 18.7 % (8-40); MCH 31.4 pg (25.7-33.7); MCHC 34.3 g/dl (32.0-35.9); MEAN CELL VOLUME 91.6 fl (80-96); MEAN PLT VOLUME 8.7 fl (7.5-11.1); MONO % 15.1 % (3.8-10.2); NEUT % 65.1 % (42.8-82.8); PLATELET COUNT 275 K/MM3 (134-434); RBC 4.29 M/mm3 (4.00-5.60); RDW 16.1 % (11.9-15.9); WHITE BLOOD COUNT 9.6 K/mm3 (4.0-10.0)
[2018-11-21 11:55] LABS: INR 1.06 (0.83-1.09); PROTHROMBIN TIME (PATIENT) 12.5 SEC (9.7-13.0)
[2018-11-21 11:57] LABS: ACTIVATED PTT 34.4 SECONDS (25.2-36.5)
--- NOTE | 2018-11-21 12:02 | PDOC ---
Attending Attestation - Resident Resident Name: Kaylie Reddy - ED Attending Attestation I have performed the following: I have examined & evaluated the patient, The case was reviewed & discussed with the resident, I agree w/resident's findings & plan, Exceptions are as noted - HPI HPI: 11/21/18 11:58 48 M with h/o severe MR, congenital quadriplegia, cerebral palsy, non verbal with chronic trach and chronic peg, bedbound/wheelchair, epilepsy disorder, microcephaly, optic nerve atrophy, severe kyphoscoliosis, recurring tracheitis, recent admission for aspiration PNA, presenting to ED from nursing facility for SOB and hypoxia. Per staff at [facility], pt was found to be aspirating his tube feeds with subsequent desaturation to 80s. Pt unable to provide additional history himself. In ED, pt had witnessed aspiration of emesis, suspect tube feeds. - Physicial Exam PE: 11/21/18 12:01 Agree w/ resident exam - Medical Decision Making 11/21/18 12:01 48 M with SOB and hypoxia, likely 2/2 recurrent aspiration PNA. Pt with significant abdominal distention on exam, will r/o obstruction. - Labs, cultures - CXR - CTAP to r/o obstruction - IV abx for HCAP coverage - Admit
[2018-11-21] MEDS ORDERED: VANCOMYCIN 1,000 MG in DEXTROSE 5%-WATER - 250 ML IVPB ONE (12:18)
[2018-11-21] MEDS ORDERED: PIPERACILLIN/TAZOB 4.5 GM 4.5 GM in DEXTROSE 5%-WATER 100 ML IVPB ONE (12:18)
[2018-11-21 12:29] LABS: ALBUMIN 3.3 g/dl (3.4-5.0); BILIRUBIN,TOTAL 0.3 mg/dL (0.2-1); BLOOD UREA NITROGEN 20.1 mg/dL (7-18); CALCIUM 8.7 mg/dL (8.5-10.1); CREATININE 0.7 mg/dL (0.55-1.3); TOT PROT 7.8 g/dl (6.4-8.2)
[2018-11-21] MEDS ORDERED: VANCOMYCIN 1 GRAM (PRE-DOCKED) 1,000 MG/250 ML BAG IVPB ONE (12:40)
[2018-11-21] MEDS ORDERED: PIPERACILLIN/TAZOB 4.5 GM 4.5 GM/100 ML BAG IVPB ONE (12:40)
[2018-11-21 12:56] LABS: PH,URINE 7.5 (5.0-8.0); URINE APPEARANCE CLEAR; URINE BILIRUBIN NEGATIVE (NEGATIVE); URINE COLOR YELLOW; URINE GLUCOSE (UA) NEGATIVE (NEGATIVE); URINE KETONE NEGATIVE (NEGATIVE); URINE LEUK ESTERASE NEGATIVE (NEGATIVE); URINE NITRITE NEGATIVE (NEGATIVE); URINE PROTEIN NEGATIVE (NEGATIVE); URINE UROBILINOGEN 0.2 mg/dL (0.2-1.0)
[2018-11-21] MEDS ORDERED: SODIUM CHLORIDE 1,000 ML IV STA (13:31)
--- NOTE | 2018-11-21 15:23 | EKG ---
Test Reason : Blood Pressure : / mmHG Vent. Rate : 087 BPM Atrial Rate : 087 BPM P-R Int : 132 ms QRS Dur : 068 ms QT Int : 326 ms P-R-T Axes : 048 030 022 degrees QTc Int : 392 ms NORMAL SINUS RHYTHM NORMAL ECG WHEN COMPARED WITH ECG OF 03-MAR-2018 20:21, VENT. RATE HAS INCREASED BY 31 BPM T WAVE VARIATION Confirmed by ELIZABETH ESPOSITO MD ([id number]) on 11/21/2018 3:23:32 PM Referred By: Confirmed By:ELIZABETH ESPOSITO MD
--- NOTE | 2018-11-21 16:57 | HP ---
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 Patient unable to provide any history. His trach was suctioned by ED nurse upon arrival and subsequently still expelling food contents (yellow-white milky liquid) by the time I made it to the bedside. Aide at the bedside is unable to contribute any more history. 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: Yes: Seizure, Other (quadraplegia, microcephaly, profound MR) Gastrointestinal: Yes: Constipation Musculoskeletal: Yes: Paraplegia, Other (SCOLIOSIS) - Smoking History Smoking history: Unknown if ever smoked Have you smoked in the past 12 months: No - Alcohol/Substance Use Hx Alcohol Use: No History of Substance Use: reports: None - Social History ADL: Support Services History of Recent Travel: No Home Medications - Allergies Allergies/Adverse Reactions: Allergies Allergy/AdvReac Type Severity Reaction Status Date / Time Sulfa (Sulfonamide AdvReac Verified 11/21/18 15:11 Antibiotics) - Home Medications Home Medications: Ambulatory Orders Baclofen 10 mg GT TID 01/29/16 Calcium Carbonate/Vitamin D3 [Oystercal-D 500 mg-400 Unit Tb] 2 tab GT HS Cholecalciferol (Vitamin D3) [Vitamin D3] 2,000 unit GT HS 01/29/16 Magnesium Hydrox 2400MG/30Ml [Milk of Magnesia -] 30 ml GT HS 01/29/16 Simethicone 40 mg GT TID 01/29/16 Bisacodyl Suppository [Dulcolax Suppository -] 10 mg RC ASDIR PRN 03/04/18 Albuterol 2.5/Ipratropium 0.5 [Duoneb -] 1 amp NEB RQID amp 03/08/18 Acetaminophen 10 gm GT PRN 11/11/18 Mag Carb/Aluminum Hydrox/Algin [Acid Gone Antacid Liquid] 1 tsp GT TID 11/11/18 Polyethylene Glycol [Polyox Wsr-301] 17 gm GT DAILY 11/11/18 Sodium Phosphate,[place]-Dibasic [Fleet Enema] See Protocol GA ASDIR PRN 11/11/18 Clindamycin [Cleocin -] 300 mg PO Q8H #9 capsule 11/12/18 Lubiprostone [Amitiza] 24 mcg GT BID 11/14/18 Mag Carb/Aluminum Hydrox/Algin [Riginic Suspension] 5 ml GT TID 11/14/18 [place]-3/Dha/Epa/Fish Oil [Fish Oil 1,600 mg/5 ml Liquid] 1,000 mg GT BID Prednisone See Taper PO ASDIR #9 tablet 11/14/18 Scopolamine [Transderm-Scop] 1.5 mg TD ASDIR 11/14/18 Sennosides [Senna] 17.6 mg GT DAILY 11/14/18 Physical Examination Vital Signs: Vital Signs Temperature 99.8 F H 11/21/18 10:44 Pulse Rate 88 11/21/18 14:30 Respiratory Rate 24 H 11/21/18 14:30 Blood Pressure 116/72 11/21/18 14:30 O2 Sat by Pulse Oximetry (%) 95 11/21/18 14:30 Constitutional: Yes: Calm HENT: Yes: Atraumatic, Other Neck: Yes: Other (trach collar) Cardiovascular: Yes: Regular Rate and Rhythm Respiratory: Yes: Rhonchi Gastrointestinal: Yes: Normal Bowel Sounds, Other (peg in place) Extremities: Yes: Other (contracted) Neurological: Yes: Other (awake) Labs: CBC, BMP 11/21/18 11:25 11/21/18 11:25 Problem List - Problems (1) Aspiration pneumonia Assessment/Plan: on tube feeds hold ivf iv abx Code(s): J69.0 - PNEUMONITIS DUE TO INHALATION OF FOOD AND VOMIT Qualifiers: Aspiration pneumonia type: due to regurgitated food Laterality: unspecified laterality Lung location: unspecified part of lung Qualified Code(s): J69.0 - Pneumonitis due to inhalation of food and vomit (2) Acute and chronic respiratory failure Code(s): J96.20 - ACUTE AND CHR RESP FAILURE, UNSP W HYPOXIA OR HYPERCAPNIA Qualifiers: (4) Quadriplegia Code(s): G82.50 - QUADRIPLEGIA, UNSPECIFIED (5) Increased tracheal secretions Assessment/Plan: on scopolamine patch Code(s): J39.8 - OTHER SPECIFIED DISEASES OF UPPER RESPIRATORY TRACT Assessment/Plan Laboratory Tests 11/21/18 11/21/18 11/21/18 11:25 11:25 11:25 WBC 9.6 RBC 4.29 Hgb 13.5 Hct 39.3 MCV 91.6 MCH 31.4 MCHC 34.3 RDW 16.1 H Plt Count 275 MPV 8.7 Absolute Neuts (auto) 6.2 Neutrophils % 65.1 D Lymphocytes % 18.7 Monocytes % 15.1 H D Eosinophils % 0.7 D Basophils % 0.4 Nucleated RBC % 0 PT with INR INR PTT (Actin FS) VBG pH POC VBG pCO2 POC VBG pO2 VBG HCO3 VBG O2 Sat (Carmina) VBG Base Excess Sodium 134 L Potassium 4.0 Chloride 96 L Carbon Dioxide 31 Anion Gap 7 L BUN 20.1 H Creatinine 0.7 Est GFR (CKD-EPI)AfAm 127.53 Est GFR (CKD-EPI)NonAf 110.04 Random Glucose 107 H Lactic Acid Calcium 8.7 Total Bilirubin 0.3 AST 45 H ALT 49 Alkaline Phosphatase 158 H Troponin I < 0.02 Total Protein 7.8 Albumin 3.3 L Urine Color Urine Appearance Urine pH Ur Specific [place] Urine Protein Urine Glucose (UA) Urine Ketones Urine Blood Urine Nitrite Urine Bilirubin Urine Urobilinogen Ur Leukocyte Esterase 11/21/18 11/21/18 11/21/18 11:25 11:25 11:25 WBC RBC Hgb Hct MCV MCH MCHC RDW Plt Count MPV Absolute Neuts (auto) Neutrophils % Lymphocytes % Monocytes % Eosinophils % Basophils % Nucleated RBC % PT with INR 12.50 INR 1.06 PTT (Actin FS) 34.4 VBG pH 7.47 H POC VBG pCO2 42.4 POC VBG pO2 54.7 H VBG HCO3 30.4 H VBG O2 Sat (Carmina) 90.4 H VBG Base Excess 6.4 H Sodium Potassium Chloride Carbon Dioxide Anion Gap BUN Creatinine Est GFR (CKD-EPI)AfAm Est GFR (CKD-EPI)NonAf Random Glucose Lactic Acid 1.5 Calcium Total Bilirubin AST ALT Alkaline Phosphatase Troponin I Total Protein Albumin Urine Color Urine Appearance Urine pH Ur Specific [place] Urine Protein Urine Glucose (UA) Urine Ketones Urine Blood Urine Nitrite Urine Bilirubin Urine Urobilinogen Ur Leukocyte Esterase 11/21/18 12:00 WBC RBC Hgb Hct MCV MCH MCHC RDW Plt Count MPV Absolute Neuts (auto) Neutrophils % Lymphocytes % Monocytes % Eosinophils % Basophils % Nucleated RBC % PT with INR INR PTT (Actin FS) VBG pH POC VBG pCO2 POC VBG pO2 VBG HCO3 VBG O2 Sat (Carmina) VBG Base Excess Sodium Potassium Chloride Carbon Dioxide Anion Gap BUN Creatinine Est GFR (CKD-EPI)AfAm Est GFR (CKD-EPI)NonAf Random Glucose Lactic Acid Calcium Total Bilirubin AST ALT Alkaline Phosphatase Troponin I Total Protein Albumin Urine Color Yellow Urine Appearance Clear Urine pH 7.5 Ur Specific [place] 1.023 Urine Protein Negative Urine Glucose (UA) Negative Urine Ketones Negative Urine Blood Negative Urine Nitrite Negative Urine Bilirubin Negative Urine Urobilinogen 0.2 Ur Leukocyte Esterase Negative Active Medications Generic Name Dose Route Start Last Admin Trade Name Freq PRN Reason Stop Dose Admin Acetaminophen 650 mg 11/21/18 17:02 Tylenol Oral Solution - GT Q6H PRN PAIN LEVEL 1-5 Albuterol/Ipratropium 1 amp 11/21/18 20:00 11/22/18 15:45 Duoneb - NEB 1 amp RQID [facility] Administration Baclofen 10 mg 11/21/18 22:00 11/22/18 13:02 Lioresal - GT 10 mg TID [facility] Administration Calcium Carbonate/Cholecalciferol 2 tab 11/21/18 22:00 11/21/18 23:55 [place] 500+D - GT 2 tab HS [facility] Administration Cholecalciferol 2,000 unit 11/21/18 22:00 11/21/18 23:55 Vitamin D3 - GT 2,000 unit HS [facility] Administration Heparin Sodium (Porcine) 5,000 unit 11/21/18 22:00 11/22/18 13:00 Heparin - SQ 5,000 unit BID [facility] Administration Sodium Chloride 1,000 mls @ 75 mls/hr 11/21/18 17:15 11/22/18 17:38 Normal Saline - IV Not Given ASDIR [facility] Piperacillin Sod/Tazobactam 50 mls @ 100 mls/hr 11/22/18 13:00 11/22/18 17:39 Sod 3.375 gm/ Dextrose IVPB 100 mls/hr Q8H-IV [facility] Administration Protocol Non-Formulary Medication 24 mcg 11/21/18 22:00 Lubiprostone [Amitiza] GT BID [facility] Polyethylene Glycol 17 gm 11/22/18 10:00 11/22/18 13:02 Miralax (For Daily Use) - GT 17 gm DAILY [facility] Administration Scopolamine HBr 1 patch 11/22/18 10:00 11/22/18 13:00 Transderm-Scop - TD 1 patch Q72H [facility] Administration
[2018-11-21] MEDS: SODIUM CHLORIDE 1,000 ML IV SCH (17:22)
[2018-11-21] MEDS: ALBUTEROL SO4 2.5/IPRATROPIUM 0.5 INH SOL 3 ML VIAL.NEB. NEB SCH (21:00)
[2018-11-21] MEDS ORDERED: PATIENT'S OWN MEDICATION (NON-FORMULARY) (Lubiprostone [Amitiza] 24 MCG) GT SCH (22:00)
[2018-11-21] MEDS: CALCIUM 500MG/VIT-D 200 UNITS COMBO TABLET (FP) GT SCH (23:55)
[2018-11-21] MEDS: BACLOFEN 10 MG TABLET (FP) GT SCH (23:55)
[2018-11-21] MEDS: CHOLECALCIFEROL (VIT D3) 1,000 UNIT (25 MCG) TABLET GT SCH (23:55)
[2018-11-22] MEDS ORDERED: HEPARIN NA (PORCINE) 5,000 UNITS/ML 1ML VIAL ONE (00:18)
[2018-11-22] MEDS: HEPARIN NA (PORCINE) 5,000 UNITS/ML 1ML VIAL SQ SCH ×3 (00:41→21:59)
[2018-11-22 07:03] LABS: BASO % 0.3 % (0-2.0); EOS % 2.9 % (0-4.5); HEMATOCRIT 34.3 % (35.4-49); HEMOGLOBIN 11.8 GM/dL (11.7-16.9); MCH 31.4 pg (25.7-33.7); MCHC 34.4 g/dl (32.0-35.9); MEAN CELL VOLUME 91.5 fl (80-96); MEAN PLT VOLUME 8.4 fl (7.5-11.1); NEUT % 52.8 % (42.8-82.8); PLATELET COUNT 248 K/MM3 (134-434); RBC 3.75 M/mm3 (4.00-5.60); RDW 16.2 % (11.9-15.9)
[2018-11-22] MEDS ORDERED: BACLOFEN 10 MG TABLET (FP) ONE (07:03)
[2018-11-22 07:40] LABS: ALBUMIN 2.9 g/dl (3.4-5.0); BILIRUBIN,TOTAL 0.5 mg/dL (0.2-1); BLOOD UREA NITROGEN 11.2 mg/dL (7-18); CREATININE 0.5 mg/dL (0.55-1.3); POTASSIUM 3.3 mmol/L (3.5-5.1); TOT PROT 6.6 g/dl (6.4-8.2)
--- NOTE | 2018-11-22 12:39 | CON.ID ---
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, Other (quadraplegia, microcephaly, profound MR) Gastrointestinal: Yes: Constipation Musculoskeletal: Yes: Paraplegia, Other (SCOLIOSIS) Additional Medical History: CP/MICROCEPHALY - Alcohol/Substance Use Hx Alcohol Use: No History of Substance Use: reports: None - Smoking History Smoking history: Unknown if ever smoked Have you smoked in the past 12 months: No - Social History Usual Living Arrangement: Other (at [facility]) ADL: Support Services History of Recent Travel: No Home Medications - Allergies Allergies/Adverse Reactions: Allergies Allergy/AdvReac Type Severity Reaction Status Date / Time Sulfa (Sulfonamide AdvReac Verified 11/21/18 15:11 Antibiotics) - Home Medications Home Medications: Ambulatory Orders Baclofen 10 mg GT TID 01/29/16 Calcium Carbonate/Vitamin D3 [Oystercal-D 500 mg-400 Unit Tb] 2 tab GT HS Cholecalciferol (Vitamin D3) [Vitamin D3] 2,000 unit GT HS 01/29/16 Magnesium Hydrox 2400MG/30Ml [Milk of Magnesia -] 30 ml GT HS 01/29/16 Simethicone 40 mg GT TID 01/29/16 Bisacodyl Suppository [Dulcolax Suppository -] 10 mg RC ASDIR PRN 03/04/18 Albuterol 2.5/Ipratropium 0.5 [Duoneb -] 1 amp NEB RQID amp 03/08/18 Acetaminophen 10 gm GT PRN 11/11/18 Mag Carb/Aluminum Hydrox/Algin [Acid Gone Antacid Liquid] 1 tsp GT TID 11/11/18 Polyethylene Glycol [Polyox Wsr-301] 17 gm GT DAILY 11/11/18 Sodium Phosphate,[place]-Dibasic [Fleet Enema] See Protocol RI ASDIR PRN 11/11/18 Clindamycin [Cleocin -] 300 mg PO Q8H #9 capsule 11/12/18 Lubiprostone [Amitiza] 24 mcg GT BID 11/14/18 Mag Carb/Aluminum Hydrox/Algin [Riginic Suspension] 5 ml GT TID 11/14/18 [place]-3/Dha/Epa/Fish Oil [Fish Oil 1,600 mg/5 ml Liquid] 1,000 mg GT BID Prednisone See Taper PO ASDIR #9 tablet 11/14/18 Scopolamine [Transderm-Scop] 1.5 mg TD ASDIR 11/14/18 Sennosides [Senna] 17.6 mg GT DAILY 11/14/18 Physical Exam Vital Signs: Vital Signs Temperature 97.8 F 11/22/18 11:21 Pulse Rate 60 11/22/18 11:21 Respiratory Rate 18 11/22/18 11:21 Blood Pressure 131/76 11/22/18 05:34 O2 Sat by Pulse Oximetry (%) 94 L 11/22/18 09:00 Labs: CBC, BMP 11/22/18 06:34 11/22/18 06:34
[2018-11-22] MEDS ORDERED: DEXTROSE 5%-WATER - 50 ML IVPB ONE ×2 (12:56→17:09)
[2018-11-22] MEDS ORDERED: PIPERACILLIN/TAZOBACTAM 3.375 GM VIAL IVPB ONE ×2 (12:56→17:09)
[2018-11-22] MEDS: SCOPOLAMINE HYDROBROMIDE 1 PATCH PATCH.TD72 TD SCH (13:00)
[2018-11-22] MEDS: PIPERACILLIN/TAZOB 3.375 GM 3.375 GM in DEXTROSE 5%-WATER - 50 ML IVPB SCH ×2 (13:01→17:39)
[2018-11-22] MEDS: BACLOFEN 10 MG TABLET (FP) GT SCH ×3 (13:02→21:59)
[2018-11-22] MEDS: POLYETHYLENE GLYCOL 3350 119 GM BTL GT SCH (13:02)
[2018-11-22] MEDS: SODIUM CHLORIDE 1,000 ML IV SCH ×2 (13:41→17:38)
[2018-11-22] MEDS: ALBUTEROL SO4 2.5/IPRATROPIUM 0.5 INH SOL 3 ML VIAL.NEB. NEB SCH ×3 (13:41→19:32)
--- NOTE | 2018-11-22 17:28 | CON.PULM ---
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 Admitted via the ER from [facility] due to possible food contents coming from his Tracheostomy and SOB. The patient is not able to provide a history. His aide is at the bedside. She reports frequent constipation. CT: poor quality due to motion, bilateral scattered non-specific infiltrates / severely distended bowel loops. 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 No: Asthma, Bronchitis, Cancer, COPD, Pulmonary Embolus, Pulmonary Fibrosis, Sleep Apnea Gastrointestinal: Yes: Constipation Musculoskeletal: Yes: Paraplegia, Other (SCOLIOSIS) Additional Medical History: CP/MICROCEPHALY - Alcohol/Substance Use Hx Alcohol Use: No History of Substance Use: reports: None - Smoking History Smoking history: Unknown if ever smoked Have you smoked in the past 12 months: No - Social History Usual Living Arrangement: Other (at [facility]) ADL: Support Services History of Recent Travel: No Home Medications - Allergies Allergies/Adverse Reactions: Allergies Allergy/AdvReac Type Severity Reaction Status Date / Time Sulfa (Sulfonamide AdvReac Verified 11/21/18 15:11 Antibiotics) - Home Medications Home Medications: Ambulatory Orders Baclofen 10 mg GT TID 01/29/16 Calcium Carbonate/Vitamin D3 [Oystercal-D 500 mg-400 Unit Tb] 2 tab GT HS Cholecalciferol (Vitamin D3) [Vitamin D3] 2,000 unit GT HS 01/29/16 Magnesium Hydrox 2400MG/30Ml [Milk of Magnesia -] 30 ml GT HS 01/29/16 Simethicone 40 mg GT TID 01/29/16 Bisacodyl Suppository [Dulcolax Suppository -] 10 mg RC ASDIR PRN 03/04/18 Albuterol 2.5/Ipratropium 0.5 [Duoneb -] 1 amp NEB RQID amp 03/08/18 Acetaminophen 10 gm GT PRN 11/11/18 Mag Carb/Aluminum Hydrox/Algin [Acid Gone Antacid Liquid] 1 tsp GT TID 11/11/18 Polyethylene Glycol [Polyox Wsr-301] 17 gm GT DAILY 11/11/18 Sodium Phosphate,[place]-Dibasic [Fleet Enema] See Protocol OR ASDIR PRN 11/11/18 Clindamycin [Cleocin -] 300 mg PO Q8H #9 capsule 11/12/18 Lubiprostone [Amitiza] 24 mcg GT BID 11/14/18 Mag Carb/Aluminum Hydrox/Algin [Riginic Suspension] 5 ml GT TID 11/14/18 [place]-3/Dha/Epa/Fish Oil [Fish Oil 1,600 mg/5 ml Liquid] 1,000 mg GT BID Prednisone See Taper PO ASDIR #9 tablet 11/14/18 Scopolamine [Transderm-Scop] 1.5 mg TD ASDIR 11/14/18 Sennosides [Senna] 17.6 mg GT DAILY 11/14/18 Review of Systems Unable to obtain ROS, reason: not able to provide Physical Exam Vital Sings: Vital Signs Temperature 98.6 F 11/22/18 14:00 Pulse Rate 67 11/22/18 14:00 Respiratory Rate 18 11/22/18 14:00 Blood Pressure 137/82 11/22/18 14:00 O2 Sat by Pulse Oximetry (%) 96 11/22/18 13:00 Constitutional: Yes: No Distress Eyes: Yes: Conjunctiva Clear HENT: Yes: Atraumatic. No: Thrush Neck: Yes: Supple, Trachea Midline, Other (Tracheostomy intact ) Cardiovascular: Yes: Regular Rate and Rhythm Respiratory: Yes: Diminished, Rhonchi, Tachypnea, Other (Tracheostomy intact ). No: Accessory Muscle Use, Rales, SOB, Stridor, Wheezes ...Inspection: Yes: Kyphosis, Pectus Carinatum, Scoliosis. No: Use of Accessory Muscles ...Clubbing: No Gastrointestinal: Yes: Hypoactive Bowel Sounds, Other (distended ) Extremities: Yes: Shortened Edema: No Peripheral Pulses WNL: Yes Neurological: Yes: Pre-Existing Deficit Labs: CBC, BMP 08/06/19 06:34 11/22/18 06:34 Imaging - Results Chest X-ray: Report Reviewed, Image Reviewed Cat Scan: Report Reviewed, Image Reviewed Problem List - Problems (1) Aspiration pneumonia Code(s): J69.0 - PNEUMONITIS DUE TO INHALATION OF FOOD AND VOMIT Qualifiers: Aspiration pneumonia type: due to regurgitated food Laterality: unspecified laterality Lung location: unspecified part of lung Qualified Code(s): J69.0 - Pneumonitis due to inhalation of food and vomit (2) Acute and chronic respiratory failure Code(s): J96.20 - ACUTE AND CHR RESP FAILURE, UNSP W HYPOXIA OR HYPERCAPNIA Qualifiers: (3) Allergy to sulfa drugs Code(s): Z88.2 - ALLERGY STATUS TO SULFONAMIDES STATUS (4) Hypothermia Code(s): T68.XXXA - HYPOTHERMIA, INITIAL ENCOUNTER Qualifiers: (6) Quadriplegia Code(s): G82.50 - QUADRIPLEGIA, UNSPECIFIED (7) Pneumonia Code(s): J18.9 - PNEUMONIA, UNSPECIFIED ORGANISM (8) Atony of colon Code(s): K59.8 - OTHER SPECIFIED FUNCTIONAL INTESTINAL DISORDERS (9) Hypoxemia Code(s): R09.02 - HYPOXEMIA (10) Anemia Code(s): D64.9 - ANEMIA, UNSPECIFIED (11) Fecal impaction in rectum Code(s): K56.41 - FECAL IMPACTION (12) Fecal impaction of colon Code(s): K56.41 - FECAL IMPACTION Assessment/Plan ABX Per ID Trach collar O2 to maintain saturation. At this time does not require mechanical ventilation Aspiration precautions Consider GI evaluation for better chronic bowel regimen Follow cultures Monitor off systemic steroids BD TX VTE prophylaxis Will follow Thank you. Dr Starr
[2018-11-22] MEDS ORDERED: BISACODYL 10 MG SUPP.RECT RC PRN (18:07)
--- NOTE | 2018-11-22 18:08 | PN ---
Progress Note, Physician - Current Medication List Current Medications: Active Medications Acetaminophen (Tylenol Oral Solution -) 650 mg GT Q6H PRN PRN Reason: PAIN LEVEL 1-5 Albuterol/Ipratropium (Duoneb -) 1 amp NEB RQID [facility] Last Admin: 11/22/18 15:45 Dose: 1 amp Baclofen (Lioresal -) 10 mg GT TID [facility] Last Admin: 11/22/18 13:02 Dose: 10 mg Bisacodyl (Dulcolax Suppository -) 10 mg MO PRN PRN PRN Reason: CONSTIPATION Calcium Carbonate/Cholecalciferol ([place] 500+D -) [address] [facility] Last Admin: 11/21/18 23:55 Dose: 2 tab Cholecalciferol (Vitamin D3 -) 2,000 unit GT HS [facility] Last Admin: 11/21/18 23:55 Dose: 2,000 unit Heparin Sodium (Porcine) (Heparin -) 5,000 unit SQ BID [facility] Last Admin: 11/22/18 13:00 Dose: 5,000 unit Sodium Chloride (Normal Saline -) 1,000 mls @ 75 mls/hr IV ASDIR [facility] Last Admin: 11/22/18 17:38 Dose: Not Given Piperacillin Sod/Tazobactam (Sod 3.375 gm/ Dextrose) 50 mls @ 100 mls/hr IVPB Q8H-IV [facility]; Protocol Last Admin: 11/22/18 17:39 Dose: 100 mls/hr Non-Formulary Medication (Lubiprostone [Amitiza]) 24 mcg GT BID [facility] Polyethylene Glycol (Miralax (For Daily Use) -) 17 gm GT DAILY [facility] Last Admin: 11/22/18 13:02 Dose: 17 gm Scopolamine HBr (Transderm-Scop -) 1 patch TD Q72H [facility] Last Admin: 11/22/18 13:00 Dose: 1 patch Senna (Senna Oral Solution -) 8.[address] [facility] - Objective Vital Signs: Vital Signs Temperature 98.6 F 11/22/18 14:00 Pulse Rate 67 11/22/18 14:00 Respiratory Rate 18 11/22/18 14:00 Blood Pressure 137/82 11/22/18 14:00 O2 Sat by Pulse Oximetry (%) 96 11/22/18 13:00 Constitutional: Yes: Calm HENT: Yes: Atraumatic Cardiovascular: Yes: Regular Rate and Rhythm Respiratory: Yes: Rhonchi Gastrointestinal: Yes: Normal Bowel Sounds Extremities: Yes: Other (contracted) Edema: No Peripheral Pulses WNL: Yes Neurological: Yes: Alert Labs: CBC, BMP 11/22/18 06:34 11/22/18 06:34 INR, PTT INR 1.06 (0.83-1.09) 11/21/18 11:25 Problem List - Problems (1) Aspiration pneumonia Assessment/Plan: on tube feeds hold ivf Code(s): J69.0 - PNEUMONITIS DUE TO INHALATION OF FOOD AND VOMIT Qualifiers: Aspiration pneumonia type: due to regurgitated food Laterality: unspecified laterality Lung location: unspecified part of lung Qualified Code(s): J69.0 - Pneumonitis due to inhalation of food and vomit (2) Acute and chronic respiratory failure Code(s): J96.20 - ACUTE AND CHR RESP FAILURE, UNSP W HYPOXIA OR HYPERCAPNIA Qualifiers: (4) Quadriplegia Code(s): G82.50 - QUADRIPLEGIA, UNSPECIFIED (5) Increased tracheal secretions Code(s): J39.8 - OTHER SPECIFIED DISEASES OF UPPER RESPIRATORY TRACT (6) Constipation Assessment/Plan: on bowel regimen Code(s): K59.00 - CONSTIPATION, UNSPECIFIED
[2018-11-22] MEDS: CHOLECALCIFEROL (VIT D3) 1,000 UNIT (25 MCG) TABLET GT SCH (21:58)
[2018-11-22] MEDS: CALCIUM 500MG/VIT-D 200 UNITS COMBO TABLET (FP) GT SCH (22:00)
[2018-11-22] MEDS: SENNOSIDES 8.8 MG/5 ML BULK BOTTLE PO SCH (22:00)
[2018-11-23] MEDS ORDERED: PIPERACILLIN/TAZOBACTAM 3.375 GM VIAL IVPB ONE ×3 (00:58→17:10)
[2018-11-23] MEDS ORDERED: DEXTROSE 5%-WATER - 50 ML IVPB ONE ×3 (00:58→17:11)
[2018-11-23] MEDS: PIPERACILLIN/TAZOB 3.375 GM 3.375 GM in DEXTROSE 5%-WATER - 50 ML IVPB SCH ×3 (01:50→17:14)
[2018-11-23] MEDS: SODIUM CHLORIDE 1,000 ML IV SCH ×2 (05:04→17:00)
[2018-11-23] MEDS: BACLOFEN 10 MG TABLET (FP) GT SCH ×3 (05:17→21:58)
[2018-11-23] MEDS: ALBUTEROL SO4 2.5/IPRATROPIUM 0.5 INH SOL 3 ML VIAL.NEB. NEB SCH ×4 (08:00→21:10)
[2018-11-23] MEDS: ACETAMINOPHEN 650 MG/20.3 ML ORAL SOLUTION (CUPS) GT PRN ×2 (10:43→22:03)
--- NOTE | 2018-11-23 10:43 | PN ---
Progress Note (short form) - Note Progress Note: NAD on 28% Trach collar O2. No documented acute events overnight. Intake & Output 11/20/18 11/21/18 11/22/18 11/23/18 23:59 23:59 23:59 23:59 Intake Total 50 850 Balance 50 850 Weight 198 lb 6.656 oz 93 lb 3.2 oz Last Vital Signs Temp Pulse Resp BP Pulse Ox 97.6 F 64 18 111/69 96 11/23/18 06:17 11/23/18 06:17 11/23/18 06:17 11/23/18 06:17 11/22/18 21:00 Active Medications Acetaminophen (Tylenol Oral Solution -) 650 mg GT Q6H PRN PRN Reason: PAIN LEVEL 1-5 Albuterol/Ipratropium (Duoneb -) 1 amp NEB RQID [facility] Last Admin: 11/23/18 08:00 Dose: 1 amp Baclofen (Lioresal -) 10 mg GT TID [facility] Last Admin: 11/23/18 05:17 Dose: 10 mg Bisacodyl (Dulcolax Suppository -) 10 mg RC PRN PRN PRN Reason: CONSTIPATION Calcium Carbonate/Cholecalciferol ([place] 500+D -) 2 tab GT HS [facility] Last Admin: 11/22/18 22:00 Dose: 2 tab Cholecalciferol (Vitamin D3 -) 2,000 unit GT HS [facility] Last Admin: 11/22/18 21:58 Dose: 2,000 unit Heparin Sodium (Porcine) (Heparin -) 5,000 unit SQ BID [facility] Last Admin: 11/22/18 21:59 Dose: 5,000 unit Sodium Chloride (Normal Saline -) 1,000 mls @ 75 mls/hr IV ASDIR [facility] Last Admin: 11/23/18 05:04 Dose: 75 mls/hr Piperacillin Sod/Tazobactam (Sod 3.375 gm/ Dextrose) 50 mls @ 100 mls/hr IVPB Q8H-IV [facility]; Protocol Last Admin: 11/23/18 01:50 Dose: 100 mls/hr Non-Formulary Medication (Lubiprostone [Amitiza]) 24 mcg GT BID [facility] Nystatin (Mycostatin Cream -) 1 applic TP BID [facility] Polyethylene Glycol (Miralax (For Daily Use) -) 17 gm GT DAILY [facility] Last Admin: 11/22/18 13:02 Dose: 17 gm Scopolamine HBr (Transderm-Scop -) 1 patch TD Q72H [facility] Last Admin: 11/22/18 13:00 Dose: 1 patch Senna (Senna Oral Solution -) 8.8 mg PO HS [facility] Last Admin: 11/22/18 22:00 Dose: 8.8 mg Constitutional: Yes: No Distress Eyes: Yes: Conjunctiva Clear HENT: Yes: Atraumatic. No: Thrush Neck: Yes: Supple, Trachea Midline, Other (Tracheostomy intact ) Cardiovascular: Yes: Regular Rate and Rhythm Respiratory: Yes: Diminished, Rhonchi, Tracheostomy intact. No: Accessory Muscle Use, Rales, SOB, Stridor, Wheezes ...Inspection: Yes: Kyphosis, Pectus Carinatum, Scoliosis. No: Use of Accessory Muscles ...Clubbing: No Gastrointestinal: Yes: Hypoactive Bowel Sounds, Other (distended ) Extremities: Yes: Shortened Edema: No Peripheral Pulses WNL: Yes Neurological: Yes: Pre-Existing Deficit Labs: Problem List - Problems (1) Aspiration pneumonia Code(s): J69.0 - PNEUMONITIS DUE TO INHALATION OF FOOD AND VOMIT Qualifiers: Aspiration pneumonia type: due to regurgitated food Laterality: unspecified laterality Lung location: unspecified part of lung Qualified Code(s): J69.0 - Pneumonitis due to inhalation of food and vomit (2) Acute and chronic respiratory failure Code(s): J96.20 - ACUTE AND CHR RESP FAILURE, UNSP W HYPOXIA OR HYPERCAPNIA Qualifiers: (3) Allergy to sulfa drugs Code(s): Z88.2 - ALLERGY STATUS TO SULFONAMIDES STATUS (4) Hypothermia Code(s): T68.XXXA - HYPOTHERMIA, INITIAL ENCOUNTER Qualifiers: (6) Quadriplegia Code(s): G82.50 - QUADRIPLEGIA, UNSPECIFIED (7) Pneumonia Code(s): J18.9 - PNEUMONIA, UNSPECIFIED ORGANISM (8) Atony of colon Code(s): K59.8 - OTHER SPECIFIED FUNCTIONAL INTESTINAL DISORDERS (9) Hypoxemia Code(s): R09.02 - HYPOXEMIA (10) Anemia Code(s): D64.9 - ANEMIA, UNSPECIFIED (11) Fecal impaction in rectum Code(s): K56.41 - FECAL IMPACTION (12) Fecal impaction of colon Code(s): K56.41 - FECAL IMPACTION Assessment/Plan ABX Per ID Trach collar O2 to maintain saturation. At this time does not require mechanical ventilation Aspiration precautions GI evaluation called Follow cultures Monitor off systemic steroids BD TX VTE prophylaxis Dr Starr Problem List - Problems (1) Aspiration pneumonia Code(s): J69.0 - PNEUMONITIS DUE TO INHALATION OF FOOD AND VOMIT Qualifiers: Aspiration pneumonia type: due to regurgitated food Laterality: unspecified laterality Lung location: unspecified part of lung Qualified Code(s): J69.0 - Pneumonitis due to inhalation of food and vomit (2) Acute and chronic respiratory failure Code(s): J96.20 - ACUTE AND CHR RESP FAILURE, UNSP W HYPOXIA OR HYPERCAPNIA Qualifiers: (3) Allergy to sulfa drugs Code(s): Z88.2 - ALLERGY STATUS TO SULFONAMIDES STATUS (4) Hypothermia Code(s): T68.XXXA - HYPOTHERMIA, INITIAL ENCOUNTER Qualifiers: (6) Quadriplegia Code(s): G82.50 - QUADRIPLEGIA, UNSPECIFIED (7) Pneumonia Code(s): J18.9 - PNEUMONIA, UNSPECIFIED ORGANISM (8) Atony of colon Code(s): K59.8 - OTHER SPECIFIED FUNCTIONAL INTESTINAL DISORDERS (9) Hypoxemia Code(s): R09.02 - HYPOXEMIA (10) Anemia Code(s): D64.9 - ANEMIA, UNSPECIFIED (11) Fecal impaction in rectum Code(s): K56.41 - FECAL IMPACTION (12) Fecal impaction of colon Code(s): K56.41 - FECAL IMPACTION
[2018-11-23] MEDS: HEPARIN NA (PORCINE) 5,000 UNITS/ML 1ML VIAL SQ SCH ×2 (10:44→22:05)
--- NOTE | 2018-11-23 11:41 | PN ---
Progress Note, Physician History of Present Illness: still with secretions from trach no events over night calmer aid in the room - Current Medication List Current Medications: Active Medications Acetaminophen (Tylenol Oral Solution -) 650 mg GT Q6H PRN PRN Reason: PAIN LEVEL 1-5 Last Admin: 11/23/18 10:43 Dose: 650 mg Albuterol/Ipratropium (Duoneb -) 1 amp NEB RQID REPLACED BY [facility] Last Admin: 11/23/18 08:00 Dose: 1 amp Baclofen (Lioresal -) 10 mg GT TID REPLACED BY [facility] Last Admin: 11/23/18 05:17 Dose: 10 mg Bisacodyl (Dulcolax Suppository -) 10 mg RC PRN PRN PRN Reason: CONSTIPATION Last Admin: 11/23/18 10:45 Dose: 10 mg Calcium Carbonate/Cholecalciferol (Os-[place] 500+D -) 2 tab GT HS REPLACED BY [facility] Last Admin: 11/22/18 22:00 Dose: 2 tab Cholecalciferol (Vitamin D3 -) 2,000 unit GT HS REPLACED BY [facility] Last Admin: 11/22/18 21:58 Dose: 2,000 unit Heparin Sodium (Porcine) (Heparin -) 5,000 unit SQ BID REPLACED BY [facility] Last Admin: 11/22/18 21:59 Dose: 5,000 unit Sodium Chloride (Normal Saline -) 1,000 mls @ 75 mls/hr IV ASDIR REPLACED BY [facility] Last Admin: 11/23/18 05:04 Dose: 75 mls/hr Piperacillin Sod/Tazobactam (Sod 3.375 gm/ Dextrose) 50 mls @ 100 mls/hr IVPB Q8H-IV [facility]; Protocol Last Admin: 11/23/18 10:44 Dose: 100 mls/hr Non-Formulary Medication (Lubiprostone [Amitiza]) 24 mcg GT BID REPLACED BY [facility] Nystatin (Mycostatin Cream -) 1 applic TP BID REPLACED BY [facility] Polyethylene Glycol (Miralax (For Daily Use) -) 17 gm GT DAILY REPLACED BY [facility] Last Admin: 11/22/18 13:02 Dose: 17 gm Scopolamine HBr (Transderm-Scop -) 1 patch TD Q72H REPLACED BY [facility] Last Admin: 11/22/18 13:00 Dose: 1 patch Senna (Senna Oral Solution -) 8.8 mg PO HS REPLACED BY [facility] Last Admin: 11/22/18 22:00 Dose: 8.8 mg - Objective Vital Signs: Vital Signs Temperature 97.6 F 11/23/18 06:17 Pulse Rate 64 11/23/18 06:17 Respiratory Rate 18 11/23/18 06:17 Blood Pressure 111/69 11/23/18 06:17 O2 Sat by Pulse Oximetry (%) 96 11/22/18 21:00 Constitutional: Yes: No Distress, Calm HENT: Yes: Other (trach in place) Cardiovascular: Yes: S1, S2 Respiratory: Yes: Rhonchi, Other (on trach collar) Gastrointestinal: Yes: Normal Bowel Sounds, Soft, Other Musculoskeletal: Yes: WNL Extremities: Yes: Other (contracted) Neurological: Yes: Alert, Other Psychiatric: Yes: Other Labs: CBC, BMP 11/22/18 06:34 11/22/18 06:34 INR, PTT INR 1.06 (0.83-1.09) 11/21/18 11:25 Assessment/Plan Problem List - Problems (1) Aspiration pneumonia Code(s): J69.0 - PNEUMONITIS DUE TO INHALATION OF FOOD AND VOMIT Qualifiers: Aspiration pneumonia type: due to regurgitated food Laterality: unspecified laterality Lung location: unspecified part of lung Qualified Code(s): J69.0 - Pneumonitis due to inhalation of food and vomit (2) Acute and chronic respiratory failure Code(s): J96.20 - ACUTE AND CHR RESP FAILURE, UNSP W HYPOXIA OR HYPERCAPNIA Qualifiers: (3) Allergy to sulfa drugs Code(s): Z88.2 - ALLERGY STATUS TO SULFONAMIDES STATUS (4) Hypothermia Code(s): T68.XXXA - HYPOTHERMIA, INITIAL ENCOUNTER Qualifiers: (6) Quadriplegia Code(s): G82.50 - QUADRIPLEGIA, UNSPECIFIED (7) Pneumonia Code(s): J18.9 - PNEUMONIA, UNSPECIFIED ORGANISM (8) Atony of colon Code(s): K59.8 - OTHER SPECIFIED FUNCTIONAL INTESTINAL DISORDERS (9) Hypoxemia Code(s): R09.02 - HYPOXEMIA (10) Anemia Code(s): D64.9 - ANEMIA, UNSPECIFIED (11) Fecal impaction in rectum Code(s): K56.41 - FECAL IMPACTION (12) Fecal impaction of colon Code(s): K56.41 - FECAL IMPACTION Assessment/Plan abx aspiration precautions pul on case nutrition rest as per the team
[2018-11-23] MEDS: NYSTATIN 100,000 UNIT/GM TOPICAL CREAM 15 GM TUBE TP SCH ×2 (12:45→21:58)
[2018-11-23] MEDS: POLYETHYLENE GLYCOL 3350 119 GM BTL GT SCH ×2 (12:45→21:59)
[2018-11-23 12:54] VITALS: BMI 26.2
--- NOTE | 2018-11-23 13:39 | EKG ---
Test Reason : Blood Pressure : / mmHG Vent. Rate : 072 BPM Atrial Rate : 072 BPM P-R Int : 156 ms QRS Dur : 072 ms QT Int : 354 ms P-R-T Axes : 033 015 014 degrees QTc Int : 387 ms NORMAL SINUS RHYTHM NORMAL ECG WHEN COMPARED WITH ECG OF 21-NOV-2018 11:40, NONSPECIFIC T WAVE ABNORMALITY NOW EVIDENT IN ANTERIOR LEADS Confirmed by ALEX BRODY MD ([id number]) on 11/23/2018 1:38:52 PM Referred By: Confirmed By:ALEX BRODY MD
[2018-11-23] MEDS ORDERED: SODIUM PHOSPHATE/NA BIPHOS 133 ML ENEMA PR ONE (18:05)
--- NOTE | 2018-11-23 18:20 | CON.GI ---
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 Patient unable to provide any history. His trach was suctioned by ED nurse upon arrival and subsequently still expelling food contents (yellow-white milky liquid) by the time I made it to the bedside. Aide at the bedside is unable to contribute any more history. Patient admitted 02/2018 secondary to fecal impaction and rectal bleeding. History of recurrent fecal impaction few years ago. Reviewed CT and FUA--dilated loops of small and large bowel with fecal imapaction - Past Medical History [employer]WORK [employer]: Yes: Seizure, Other (quadraplegia, microcephaly, profound MR) Pulmonary: Yes: O2 Dependent, Pneumonia, Previously Intubated. No: Asthma, Bronchitis, Cancer, COPD, Pulmonary Embolus, Pulmonary Fibrosis, Sleep Apnea Gastrointestinal: Yes: Constipation Musculoskeletal: Yes: Paraplegia, Other (SCOLIOSIS) Additional Medical History: CP/MICROCEPHALY - Alcohol/Substance Use Hx Alcohol Use: No History of Substance Use: reports: None - Smoking History Smoking history: Unknown if ever smoked Have you smoked in the past 12 months: No - Social History Usual Living Arrangement: Other (at [facility]) ADL: Support Services History of Recent Travel: No Home Medications - Allergies Allergies/Adverse Reactions: Allergies Allergy/AdvReac Type Severity Reaction Status Date / Time Sulfa (Sulfonamide AdvReac Verified 11/21/18 15:11 Antibiotics) - Home Medications Home Medications: Ambulatory Orders Baclofen 10 mg GT TID 01/29/16 Calcium Carbonate/Vitamin D3 [Oystercal-D 500 mg-400 Unit Tb] 2 tab GT HS Cholecalciferol (Vitamin D3) [Vitamin D3] 2,000 unit GT 01/29/16 Magnesium Hydrox 2400MG/30Ml [Milk of Magnesia -] 30 ml GT 01/29/16 Simethicone 40 mg GT TID 01/29/16 Bisacodyl Suppository [Dulcolax Suppository -] 10 mg RC ASDIR PRN 03/04/18 Albuterol 2.5/Ipratropium 0.5 [Duoneb -] 1 amp NEB RQID amp 03/08/18 Acetaminophen 10 gm GT PRN 11/11/18 Mag Carb/Aluminum Hydrox/Algin [Acid Gone Antacid Liquid] 1 tsp GT TID 11/11/18 Polyethylene Glycol [Polyox Wsr-301] 17 gm GT DAILY 11/11/18 Sodium Phosphate,[place]-Dibasic [Fleet Enema] See Protocol IN ASDIR PRN 11/11/18 Clindamycin [Cleocin -] 300 mg PO Q8H #9 capsule 11/12/18 Lubiprostone [Amitiza] 24 mcg GT BID 11/14/18 Mag Carb/Aluminum Hydrox/Algin [Riginic Suspension] 5 ml GT TID 11/14/18 [place]-3/Dha/Epa/Fish Oil [Fish Oil 1,600 mg/5 ml Liquid] 1,000 mg GT BID Prednisone See Taper PO ASDIR #9 tablet 11/14/18 Scopolamine [Transderm-Scop] 1.5 mg TD ASDIR 11/14/18 Sennosides [Senna] 17.6 mg GT DAILY 11/14/18 Physical Exam-GI Vital Signs: Vital Signs Temperature 98.0 F 11/23/18 14:00 Pulse Rate 75 11/23/18 14:00 Respiratory Rate 18 11/23/18 17:32 Blood Pressure 141/73 11/23/18 14:00 O2 Sat by Pulse Oximetry (%) 96 11/22/18 21:00 Constitutional: Yes: Well Nourished Eyes: Yes: Conjunctiva Clear HENT: Yes: Atraumatic Neck: Yes: Supple Cardiovascular: Yes: Regular Rate and Rhythm Respiratory: Yes: CTA Bilaterally Gastrointestinal Inspection: Yes: Distention ...Palpate: Yes: Soft. No: Firm/Rigid, Guarding, Hepatomegaly, Splenomegaly, Tenderness ...Percussion: Yes: Tympanitic Labs: CBC, BMP 11/22/18 06:34 11/22/18 06:34 INR, PTT INR 1.06 (0.83-1.09) 11/21/18 11:25 Imaging - Results X-ray: Report Reviewed (--fecal impaction) Problem List - Problems (1) Colonic pseudoobstruction Assessment/Plan: R>will need fleet enemas increase Miralax 34 grams bid will need enemas at home three time a week Code(s): K59.8 - OTHER SPECIFIED FUNCTIONAL INTESTINAL DISORDERS
--- NOTE | 2018-11-23 18:52 | PN ---
Progress Note, Physician - Current Medication List Current Medications: Active Medications Acetaminophen (Tylenol Oral Solution -) 650 mg GT Q6H PRN PRN Reason: PAIN LEVEL 1-5 Last Admin: 11/23/18 10:43 Dose: 650 mg Albuterol/Ipratropium (Duoneb -) 1 amp NEB RQID [facility] Last Admin: 11/23/18 15:30 Dose: 1 amp Baclofen (Lioresal -) 10 mg GT TID [facility] Last Admin: 11/23/18 15:55 Dose: 10 mg Bisacodyl (Dulcolax Suppository -) 10 mg RC PRN PRN PRN Reason: CONSTIPATION Last Admin: 11/23/18 10:45 Dose: 10 mg Calcium Carbonate/Cholecalciferol (Os-Mich 500+D -) 2 tab GT [facility] Last Admin: 11/22/18 22:00 Dose: 2 tab Cholecalciferol (Vitamin D3 -) 2,000 unit GT HS [facility] Last Admin: 11/22/18 21:58 Dose: 2,000 unit Heparin Sodium (Porcine) (Heparin -) 5,000 unit SQ BID [facility] Last Admin: 11/23/18 10:44 Dose: 5,000 unit Sodium Chloride (Normal Saline -) 1,000 mls @ 75 mls/hr IV ASDIR [facility] Last Admin: 11/23/18 05:04 Dose: 75 mls/hr Piperacillin Sod/Tazobactam (Sod 3.375 gm/ Dextrose) 50 mls @ 100 mls/hr IVPB Q8H-IV [facility]; Protocol Last Admin: 11/23/18 17:14 Dose: 100 mls/hr Non-Formulary Medication (Lubiprostone [Amitiza]) 24 mcg GT BID [facility] Nystatin (Mycostatin Cream -) 1 applic TP BID [facility] Last Admin: 11/23/18 12:45 Dose: 1 applic Polyethylene Glycol (Miralax (For Daily Use) -) 34 gm GT BID [facility] Scopolamine HBr (Transderm-Scop -) 1 patch TD Q72H [facility] Last Admin: 11/22/18 13:00 Dose: 1 patch Senna (Senna Oral Solution -) 8.8 mg PO HS [facility] Last Admin: 11/22/18 22:00 Dose: 8.8 mg - Objective Vital Signs: Vital Signs Temperature 98.2 F 11/23/18 18:33 Pulse Rate 56 L 11/23/18 18:33 Respiratory Rate 18 11/23/18 18:33 Blood Pressure 108/62 11/23/18 18:33 O2 Sat by Pulse Oximetry (%) 96 11/22/18 21:00 Constitutional: Yes: Calm HENT: Yes: Atraumatic Neck: Yes: Other (trach collar) Cardiovascular: Yes: Regular Rate and Rhythm Respiratory: Yes: Rhonchi Gastrointestinal: Yes: Normal Bowel Sounds, Other (peg in place) Extremities: Yes: Other (contracted) Neurological: Yes: Alert Labs: CBC, BMP 11/22/18 06:34 11/22/18 06:34 INR, PTT INR 1.06 (0.83-1.09) 11/21/18 11:25 Problem List - Problems (1) Aspiration pneumonia Assessment/Plan: on tube feeds hold ivf iv abx Code(s): J69.0 - PNEUMONITIS DUE TO INHALATION OF FOOD AND VOMIT Qualifiers: Aspiration pneumonia type: due to regurgitated food Laterality: unspecified laterality Lung location: unspecified part of lung Qualified Code(s): J69.0 - Pneumonitis due to inhalation of food and vomit (2) Acute and chronic respiratory failure Code(s): J96.20 - ACUTE AND CHR RESP FAILURE, UNSP W HYPOXIA OR HYPERCAPNIA Qualifiers: (4) Quadriplegia Code(s): G82.50 - QUADRIPLEGIA, UNSPECIFIED (5) Increased tracheal secretions Assessment/Plan: on scopolamine patch Code(s): J39.8 - OTHER SPECIFIED DISEASES OF UPPER RESPIRATORY TRACT (6) Constipation Assessment/Plan: on bowel regimen gi on board Code(s): K59.00 - CONSTIPATION, UNSPECIFIED
[2018-11-23] MEDS ORDERED: PT OWN MED DRAWER 7, Y5N ONE (21:51)
[2018-11-23] MEDS: SENNOSIDES 8.8 MG/5 ML BULK BOTTLE PO SCH (21:58)
[2018-11-23] MEDS: CHOLECALCIFEROL (VIT D3) 1,000 UNIT (25 MCG) TABLET GT SCH (21:58)
[2018-11-23] MEDS: CALCIUM 500MG/VIT-D 200 UNITS COMBO TABLET (FP) GT SCH (21:59)
[2018-11-24] MEDS ORDERED: PIPERACILLIN/TAZOBACTAM 3.375 GM VIAL IVPB ONE ×3 (00:34→16:44)
[2018-11-24] MEDS ORDERED: DEXTROSE 5%-WATER - 50 ML IVPB ONE ×3 (00:34→16:44)
[2018-11-24] MEDS: PIPERACILLIN/TAZOB 3.375 GM 3.375 GM in DEXTROSE 5%-WATER - 50 ML IVPB SCH ×3 (01:11→17:14)
[2018-11-24] MEDS: BACLOFEN 10 MG TABLET (FP) GT SCH ×3 (06:12→21:51)
[2018-11-24] MEDS: ALBUTEROL SO4 2.5/IPRATROPIUM 0.5 INH SOL 3 ML VIAL.NEB. NEB SCH ×4 (08:00→21:30)
--- NOTE | 2018-11-24 09:25 | PN ---
Progress Note, Physician History of Present Illness: starting to look better still lot of gurgling and secretions - Current Medication List Current Medications: Active Medications Acetaminophen (Tylenol Oral Solution -) 650 mg GT Q6H PRN PRN Reason: PAIN LEVEL 1-5 Last Admin: 11/23/18 22:03 Dose: 650 mg Albuterol/Ipratropium (Duoneb -) 1 amp NEB RQID [facility] Last Admin: 11/24/18 08:00 Dose: 1 amp Baclofen (Lioresal -) 10 mg GT TID [facility] Last Admin: 11/24/18 06:12 Dose: 10 mg Bisacodyl (Dulcolax Suppository -) 10 mg RC PRN PRN PRN Reason: CONSTIPATION Last Admin: 11/23/18 10:45 Dose: 10 mg Calcium Carbonate/Cholecalciferol (Os-Mich 500+D -) 2 tab GT [facility] Last Admin: 11/23/18 21:59 Dose: 2 tab Cholecalciferol (Vitamin D3 -) 2,000 unit GT [facility] Last Admin: 11/23/18 21:58 Dose: 2,000 unit Heparin Sodium (Porcine) (Heparin -) 5,000 unit SQ BID [facility] Last Admin: 11/23/18 22:05 Dose: 5,000 unit Sodium Chloride (Normal Saline -) 1,000 mls @ 75 mls/hr IV ASDIR [facility] Last Admin: 11/23/18 17:00 Dose: 75 mls/hr Piperacillin Sod/Tazobactam (Sod 3.375 gm/ Dextrose) 50 mls @ 100 mls/hr IVPB Q8H-IV [facility]; Protocol Last Admin: 11/24/18 09:23 Dose: 100 mls/hr Non-Formulary Medication (Lubiprostone [Amitiza]) 24 mcg GT BID [facility] Nystatin (Mycostatin Cream -) 1 applic TP BID [facility] Last Admin: 11/23/18 21:58 Dose: 1 applic Polyethylene Glycol (Miralax (For Daily Use) -) 34 gm GT BID [facility] Last Admin: 11/23/18 21:59 Dose: 34 gm Scopolamine HBr (Transderm-Scop -) 1 patch TD Q72H [facility] Last Admin: 11/22/18 13:00 Dose: 1 patch Senna (Senna Oral Solution -) 8.8 mg PO HS [facility] Last Admin: 11/23/18 21:58 Dose: 8.8 mg - Objective Vital Signs: Vital Signs Temperature 97.5 F L 11/24/18 06:00 Pulse Rate 66 11/24/18 06:00 Respiratory Rate 20 11/24/18 06:00 Blood Pressure 123/46 L 11/24/18 06:00 O2 Sat by Pulse Oximetry (%) 96 11/22/18 21:00 Constitutional: Yes: No Distress, Calm Cardiovascular: Yes: Regular Rate and Rhythm Respiratory: Yes: Rhonchi, Other (on trach collar) Gastrointestinal: Yes: Normal Bowel Sounds, Soft Musculoskeletal: Yes: WNL Extremities: Yes: Other (contracted) Neurological: Yes: Alert Psychiatric: Yes: Other Labs: CBC, BMP 11/22/18 06:34 11/22/18 06:34 INR, PTT INR 1.06 (0.83-1.09) 11/21/18 11:25 Assessment/Plan Problem List - Problems (1) Aspiration pneumonia Code(s): J69.0 - PNEUMONITIS DUE TO INHALATION OF FOOD AND VOMIT Qualifiers: Aspiration pneumonia type: due to regurgitated food Laterality: unspecified laterality Lung location: unspecified part of lung Qualified Code(s): J69.0 - Pneumonitis due to inhalation of food and vomit (2) Acute and chronic respiratory failure Code(s): J96.20 - ACUTE AND CHR RESP FAILURE, UNSP W HYPOXIA OR HYPERCAPNIA Qualifiers: (3) Allergy to sulfa drugs Code(s): Z88.2 - ALLERGY STATUS TO SULFONAMIDES STATUS (4) Hypothermia Code(s): T68.XXXA - HYPOTHERMIA, INITIAL ENCOUNTER Qualifiers: (6) Quadriplegia Code(s): G82.50 - QUADRIPLEGIA, UNSPECIFIED (7) Pneumonia Code(s): J18.9 - PNEUMONIA, UNSPECIFIED ORGANISM (8) Atony of colon Code(s): K59.8 - OTHER SPECIFIED FUNCTIONAL INTESTINAL DISORDERS (9) Hypoxemia Code(s): R09.02 - HYPOXEMIA (10) Anemia Code(s): D64.9 - ANEMIA, UNSPECIFIED (11) Fecal impaction in rectum Code(s): K56.41 - FECAL IMPACTION (12) Fecal impaction of colon Code(s): K56.41 - FECAL IMPACTION Assessment/Plan abx aspiration precautions pul on case nutrition rest as per the team
--- NOTE | 2018-11-24 09:30 | PN ---
Progress Note (short form) - Note Progress Note: NAD on 28% Trach collar O2. BM x 3 overnight. No documented acute events overnight. Intake & Output 11/21/18 11/22/18 11/23/18 11/24/18 23:59 23:59 23:59 23:59 Intake Total 50 1500 600 Balance 50 1500 600 Weight 198 lb 6.656 oz 93 lb 3.2 oz 93 lb Last Vital Signs Temp Pulse Resp BP Pulse Ox 98.8 F 90 18 123/77 96 11/24/18 09:22 11/24/18 09:22 11/24/18 09:22 11/24/18 09:22 11/22/18 21:00 Active Medications Acetaminophen (Tylenol Oral Solution -) 650 mg GT Q6H PRN PRN Reason: PAIN LEVEL 1-5 Last Admin: 11/23/18 22:03 Dose: 650 mg Albuterol/Ipratropium (Duoneb -) 1 amp NEB RQID [facility] Last Admin: 11/24/18 08:00 Dose: 1 amp Baclofen (Lioresal -) 10 mg GT TID [facility] Last Admin: 11/24/18 06:12 Dose: 10 mg Bisacodyl (Dulcolax Suppository -) 10 mg RC PRN PRN PRN Reason: CONSTIPATION Last Admin: 11/23/18 10:45 Dose: 10 mg Calcium Carbonate/Cholecalciferol (Os-Mich 500+D -) 2 tab GT HS [facility] Last Admin: 11/23/18 21:59 Dose: 2 tab Cholecalciferol (Vitamin D3 -) 2,000 unit GT HS [facility] Last Admin: 11/23/18 21:58 Dose: 2,000 unit Heparin Sodium (Porcine) (Heparin -) 5,000 unit SQ BID [facility] Last Admin: 11/23/18 22:05 Dose: 5,000 unit Sodium Chloride (Normal Saline -) 1,000 mls @ 75 mls/hr IV ASDIR [facility] Last Admin: 11/23/18 17:00 Dose: 75 mls/hr Piperacillin Sod/Tazobactam (Sod 3.375 gm/ Dextrose) 50 mls @ 100 mls/hr IVPB Q8H-IV [facility]; Protocol Last Admin: 11/24/18 09:23 Dose: 100 mls/hr Non-Formulary Medication (Lubiprostone [Amitiza]) 24 mcg GT BID [facility] Nystatin (Mycostatin Cream -) 1 applic TP BID [facility] Last Admin: 11/23/18 21:58 Dose: 1 applic Polyethylene Glycol (Miralax (For Daily Use) -) 34 gm GT BID [facility] Last Admin: 11/23/18 21:59 Dose: 34 gm Scopolamine HBr (Transderm-Scop -) 1 patch TD Q72H [facility] Last Admin: 11/22/18 13:00 Dose: 1 patch Senna (Senna Oral Solution -) 8.8 mg PO HS [facility] Last Admin: 11/23/18 21:58 Dose: 8.8 mg Constitutional: Yes: No Distress Eyes: Yes: Conjunctiva Clear HENT: Yes: Atraumatic. No: Thrush Neck: Yes: Supple, Trachea Midline, Other (Tracheostomy intact ) Cardiovascular: Yes: Regular Rate and Rhythm Respiratory: Yes: Diminished, Rhonchi, Tracheostomy intact. No: Accessory Muscle Use, Rales, SOB, Stridor, Wheezes ...Inspection: Yes: Kyphosis, Pectus Carinatum, Scoliosis. No: Use of Accessory Muscles ...Clubbing: No Gastrointestinal: Yes: Hypoactive Bowel Sounds, Other (distended ) Extremities: Yes: Shortened Edema: No Peripheral Pulses WNL: Yes Neurological: Yes: Pre-Existing Deficit Labs: Problem List - Problems (1) Aspiration pneumonia Code(s): J69.0 - PNEUMONITIS DUE TO INHALATION OF FOOD AND VOMIT Qualifiers: Aspiration pneumonia type: due to regurgitated food Laterality: unspecified laterality Lung location: unspecified part of lung Qualified Code(s): J69.0 - Pneumonitis due to inhalation of food and vomit (2) Acute and chronic respiratory failure Code(s): J96.20 - ACUTE AND CHR RESP FAILURE, UNSP W HYPOXIA OR HYPERCAPNIA Qualifiers: (3) Allergy to sulfa drugs Code(s): Z88.2 - ALLERGY STATUS TO SULFONAMIDES STATUS (4) Hypothermia Code(s): T68.XXXA - HYPOTHERMIA, INITIAL ENCOUNTER Qualifiers: (5) Quadriplegia Code(s): G82.50 - QUADRIPLEGIA, UNSPECIFIED (6) Pneumonia Code(s): J18.9 - PNEUMONIA, UNSPECIFIED ORGANISM (7) Atony of colon Code(s): K59.8 - OTHER SPECIFIED FUNCTIONAL INTESTINAL DISORDERS (8) Hypoxemia Code(s): R09.02 - HYPOXEMIA (9) Anemia Code(s): D64.9 - ANEMIA, UNSPECIFIED (10) Fecal impaction in rectum Code(s): K56.41 - FECAL IMPACTION (11) Fecal impaction of colon Code(s): K56.41 - FECAL IMPACTION Assessment/Plan ABX Per ID Trach collar O2 to maintain saturation. At this time does not require mechanical ventilation Aspiration precautions Follow final cultures Monitor off systemic steroids BD TX VTE prophylaxis Dr Starr Problem List - Problems (1) Aspiration pneumonia Code(s): J69.0 - PNEUMONITIS DUE TO INHALATION OF FOOD AND VOMIT Qualifiers: Aspiration pneumonia type: due to regurgitated food Laterality: unspecified laterality Lung location: unspecified part of lung Qualified Code(s): J69.0 - Pneumonitis due to inhalation of food and vomit (2) Acute and chronic respiratory failure Code(s): J96.20 - ACUTE AND CHR RESP FAILURE, UNSP W HYPOXIA OR HYPERCAPNIA Qualifiers: (3) Allergy to sulfa drugs Code(s): Z88.2 - ALLERGY STATUS TO SULFONAMIDES STATUS (4) Hypothermia Code(s): T68.XXXA - HYPOTHERMIA, INITIAL ENCOUNTER Qualifiers: (6) Quadriplegia Code(s): G82.50 - QUADRIPLEGIA, UNSPECIFIED (7) Pneumonia Code(s): J18.9 - PNEUMONIA, UNSPECIFIED ORGANISM (8) Atony of colon Code(s): K59.8 - OTHER SPECIFIED FUNCTIONAL INTESTINAL DISORDERS (9) Hypoxemia Code(s): R09.02 - HYPOXEMIA (10) Anemia Code(s): D64.9 - ANEMIA, UNSPECIFIED (11) Fecal impaction in rectum Code(s): K56.41 - FECAL IMPACTION (12) Fecal impaction of colon Code(s): K56.41 - FECAL IMPACTION
[2018-11-24] MEDS: SODIUM CHLORIDE 1,000 ML IV SCH ×2 (11:00→17:15)
[2018-11-24] MEDS: POLYETHYLENE GLYCOL 3350 119 GM BTL GT SCH ×3 (11:45→21:53)
[2018-11-24] MEDS: HEPARIN NA (PORCINE) 5,000 UNITS/ML 1ML VIAL SQ SCH ×2 (12:00→21:53)
[2018-11-24] MEDS: NYSTATIN 100,000 UNIT/GM TOPICAL CREAM 15 GM TUBE TP SCH ×2 (12:01→21:51)
--- NOTE | 2018-11-24 16:44 | PN ---
Progress Note, Physician - Current Medication List Current Medications: Active Medications Acetaminophen (Tylenol Oral Solution -) 650 mg GT Q6H PRN PRN Reason: PAIN LEVEL 1-5 Last Admin: 11/23/18 22:03 Dose: 650 mg Albuterol/Ipratropium (Duoneb -) 1 amp NEB RQID [facility] Last Admin: 11/24/18 16:12 Dose: 1 amp Baclofen (Lioresal -) 10 mg GT TID [facility] Last Admin: 11/24/18 15:29 Dose: 10 mg Bisacodyl (Dulcolax Suppository -) 10 mg RC PRN PRN PRN Reason: CONSTIPATION Last Admin: 11/23/18 10:45 Dose: 10 mg Calcium Carbonate/Cholecalciferol (Os-[place] 500+D -) [address] [facility] Last Admin: 11/23/18 21:59 Dose: 2 tab Cholecalciferol (Vitamin D3 -) 2,[address] [facility] Last Admin: 11/23/18 21:58 Dose: 2,000 unit Heparin Sodium (Porcine) (Heparin -) 5,000 unit SQ BID [facility] Last Admin: 11/24/18 12:00 Dose: 5,000 unit Sodium Chloride (Normal Saline -) 1,000 mls @ 75 mls/hr IV ASDIR [facility] Last Admin: 11/24/18 11:00 Dose: 75 mls/hr Piperacillin Sod/Tazobactam (Sod 3.375 gm/ Dextrose) 50 mls @ 100 mls/hr IVPB Q8H-IV [facility]; Protocol Last Admin: 11/24/18 09:23 Dose: 100 mls/hr Non-Formulary Medication (Lubiprostone [Amitiza]) 24 mcg GT BID [facility] Nystatin (Mycostatin Cream -) 1 applic TP BID [facility] Last Admin: 11/24/18 12:01 Dose: 1 applic Polyethylene Glycol (Miralax (For Daily Use) -) 34 gm GT BID [facility] Last Admin: 11/24/18 11:45 Dose: Not Given Scopolamine HBr (Transderm-Scop -) 1 patch TD Q72H [facility] Last Admin: 11/22/18 13:00 Dose: 1 patch Senna (Senna Oral Solution -) 8.8 mg PO HS [facility] Last Admin: 11/23/18 21:58 Dose: 8.8 mg - Objective Vital Signs: Vital Signs Temperature 98.5 F 11/24/18 14:00 Pulse Rate 62 11/24/18 14:00 Respiratory Rate 18 11/24/18 14:00 Blood Pressure 117/65 11/24/18 14:00 O2 Sat by Pulse Oximetry (%) 96 11/22/18 21:00 Constitutional: Yes: Calm HENT: Yes: Atraumatic Neck: Yes: Other (trach collar) Cardiovascular: Yes: Regular Rate and Rhythm Respiratory: Yes: Rhonchi Gastrointestinal: Yes: Normal Bowel Sounds, Other (peg in place) Labs: CBC, BMP 11/22/18 06:34 11/22/18 06:34 INR, PTT INR 1.06 (0.83-1.09) 11/21/18 11:25 Problem List - Problems (1) Aspiration pneumonia Assessment/Plan: dc ivf start tube feeds iv abx Code(s): J69.0 - PNEUMONITIS DUE TO INHALATION OF FOOD AND VOMIT Qualifiers: Aspiration pneumonia type: due to regurgitated food Laterality: unspecified laterality Lung location: unspecified part of lung Qualified Code(s): J69.0 - Pneumonitis due to inhalation of food and vomit (2) Acute and chronic respiratory failure Assessment/Plan: prn oxygen Code(s): J96.20 - ACUTE AND CHR RESP FAILURE, UNSP W HYPOXIA OR HYPERCAPNIA Qualifiers: (4) Quadriplegia Code(s): G82.50 - QUADRIPLEGIA, UNSPECIFIED (5) Increased tracheal secretions Assessment/Plan: on scopolamine patch Code(s): J39.8 - OTHER SPECIFIED DISEASES OF UPPER RESPIRATORY TRACT (6) Constipation Assessment/Plan: on bowel regimen gi on board Code(s): K59.00 - CONSTIPATION, UNSPECIFIED (7) DVT prophylaxis Code(s): [id number] -
[2018-11-24] MEDS ORDERED: SODIUM PHOSPHATE/NA BIPHOS 133 ML ENEMA PR ONE (17:59)
--- NOTE | 2018-11-24 18:05 | PN.GI ---
GI Progress Note Subjective: less distended, had good bms overnight - Objective Vital Signs: Vital Signs Temperature 98.5 F 11/24/18 14:00 Pulse Rate 62 11/24/18 14:00 Respiratory Rate 18 11/24/18 14:00 Blood Pressure 117/65 11/24/18 14:00 O2 Sat by Pulse Oximetry (%) 96 11/22/18 21:00 Respiratory: Yes: Stridor ...Auscultate: Yes: Normoactive Bowel Sounds ...Palpate: Yes: Soft. No: Firm/Rigid, Guarding, Hepatomegaly, Mass, Pulsatile Mass, Splenomegaly, Tenderness Labs: CBC, BMP 11/22/18 06:34 11/22/18 06:34 INR, PTT INR 1.06 (0.83-1.09) 11/21/18 11:25 Problem List - Problems (1) Colonic pseudoobstruction Assessment/Plan: R> continu fleets enema and laxatives d/w Dr Mcmanus Code(s): K59.8 - OTHER SPECIFIED FUNCTIONAL INTESTINAL DISORDERS
[2018-11-24] MEDS ORDERED: PT OWN MED DRAWER 7, Y5N ONE (21:24)
[2018-11-24] MEDS: CALCIUM 500MG/VIT-D 200 UNITS COMBO TABLET (FP) GT SCH (21:51)
[2018-11-24] MEDS: CHOLECALCIFEROL (VIT D3) 1,000 UNIT (25 MCG) TABLET GT SCH (21:51)
[2018-11-24] MEDS: ACETAMINOPHEN 650 MG/20.3 ML ORAL SOLUTION (CUPS) GT PRN (21:54)
[2018-11-24] MEDS: SENNOSIDES 8.8 MG/5 ML BULK BOTTLE PO SCH (21:54)
[2018-11-25] MEDS ORDERED: DEXTROSE 5%-WATER - 50 ML IVPB ONE ×3 (00:37→17:17)
[2018-11-25] MEDS ORDERED: PIPERACILLIN/TAZOBACTAM 3.375 GM VIAL IVPB ONE ×3 (00:37→17:17)
[2018-11-25] MEDS: PIPERACILLIN/TAZOB 3.375 GM 3.375 GM in DEXTROSE 5%-WATER - 50 ML IVPB SCH ×3 (01:45→17:21)
[2018-11-25] MEDS: BACLOFEN 10 MG TABLET (FP) GT SCH ×3 (05:06→21:19)
[2018-11-25] MEDS: ALBUTEROL SO4 2.5/IPRATROPIUM 0.5 INH SOL 3 ML VIAL.NEB. NEB SCH ×4 (08:17→21:18)
--- NOTE | 2018-11-25 10:34 | PN ---
Progress Note, Physician History of Present Illness: stable looks much better secretions better - Current Medication List Current Medications: Active Medications Acetaminophen (Tylenol Oral Solution -) 650 mg GT Q6H PRN PRN Reason: PAIN LEVEL 1-5 Last Admin: 11/24/18 21:54 Dose: 650 mg Albuterol/Ipratropium (Duoneb -) 1 amp NEB RQID [facility] Last Admin: 11/25/18 08:17 Dose: 1 amp Baclofen (Lioresal -) 10 mg GT TID [facility] Last Admin: 11/25/18 05:06 Dose: 10 mg Bisacodyl (Dulcolax Suppository -) 10 mg RC PRN PRN PRN Reason: CONSTIPATION Last Admin: 11/23/18 10:45 Dose: 10 mg Calcium Carbonate/Cholecalciferol (Os-[place] 500+D -) 2 tab GT HS [facility] Last Admin: 11/24/18 21:51 Dose: 2 tab Cholecalciferol (Vitamin D3 -) 2,000 unit GT [facility] Last Admin: 11/24/18 21:51 Dose: 2,000 unit Heparin Sodium (Porcine) (Heparin -) 5,000 unit SQ BID [facility] Last Admin: 11/24/18 21:53 Dose: 5,000 unit Piperacillin Sod/Tazobactam (Sod 3.375 gm/ Dextrose) 50 mls @ 100 mls/hr IVPB Q8H-IV [facility]; Protocol Last Admin: 11/25/18 01:45 Dose: 100 mls/hr Non-Formulary Medication (Lubiprostone [Amitiza]) 24 mcg GT BID [facility] Nystatin (Mycostatin Cream -) 1 applic TP BID [facility] Last Admin: 11/24/18 21:51 Dose: 1 applic Polyethylene Glycol (Miralax (For Daily Use) -) 34 gm GT BID [facility] Last Admin: 11/24/18 21:53 Dose: 34 gm Scopolamine HBr (Transderm-Scop -) 1 patch TD Q72H [facility] Last Admin: 11/22/18 13:00 Dose: 1 patch Senna (Senna Oral Solution -) 8.8 mg PO HS [facility] Last Admin: 11/24/18 21:54 Dose: 8.8 mg - Objective Vital Signs: Vital Signs Temperature 98.6 F 11/25/18 06:00 Pulse Rate 69 11/25/18 10:09 Respiratory Rate 20 11/25/18 06:00 Blood Pressure 142/88 11/25/18 06:00 O2 Sat by Pulse Oximetry (%) 97 11/25/18 10:09 Constitutional: Yes: No Distress, Calm Cardiovascular: Yes: S1, S2 Respiratory: Yes: Regular, Other (trach in place) Gastrointestinal: Yes: Normal Bowel Sounds, Soft Musculoskeletal: Yes: WNL Extremities: Yes: Other Neurological: Yes: Alert Psychiatric: Yes: Other Labs: CBC, BMP 11/22/18 06:34 11/22/18 06:34 INR, PTT INR 1.06 (0.83-1.09) 11/21/18 11:25 Assessment/Plan Problem List - Problems (1) Aspiration pneumonia Code(s): J69.0 - PNEUMONITIS DUE TO INHALATION OF FOOD AND VOMIT Qualifiers: Aspiration pneumonia type: due to regurgitated food Laterality: unspecified laterality Lung location: unspecified part of lung Qualified Code(s): J69.0 - Pneumonitis due to inhalation of food and vomit (2) Acute and chronic respiratory failure Code(s): J96.20 - ACUTE AND CHR RESP FAILURE, UNSP W HYPOXIA OR HYPERCAPNIA Qualifiers: (3) Allergy to sulfa drugs Code(s): Z88.2 - ALLERGY STATUS TO SULFONAMIDES STATUS (4) Hypothermia Code(s): T68.XXXA - HYPOTHERMIA, INITIAL ENCOUNTER Qualifiers: (6) Quadriplegia Code(s): G82.50 - QUADRIPLEGIA, UNSPECIFIED (7) Pneumonia Code(s): J18.9 - PNEUMONIA, UNSPECIFIED ORGANISM (8) Atony of colon Code(s): K59.8 - OTHER SPECIFIED FUNCTIONAL INTESTINAL DISORDERS (9) Hypoxemia Code(s): R09.02 - HYPOXEMIA (10) Anemia Code(s): D64.9 - ANEMIA, UNSPECIFIED (11) Fecal impaction in rectum Code(s): K56.41 - FECAL IMPACTION (12) Fecal impaction of colon Code(s): K56.41 - FECAL IMPACTION Assessment/Plan abx aspiration precautions pul on case nutrition rest as per the team
[2018-11-25] MEDS ORDERED: PT OWN MED DRAWER 7, Y5N ONE ×3 (10:55→21:16)
[2018-11-25] MEDS: POLYETHYLENE GLYCOL 3350 119 GM BTL GT SCH ×2 (11:10→21:20)
[2018-11-25] MEDS: SCOPOLAMINE HYDROBROMIDE 1 PATCH PATCH.TD72 TD SCH (11:15)
[2018-11-25] MEDS: NYSTATIN 100,000 UNIT/GM TOPICAL CREAM 15 GM TUBE TP SCH ×2 (11:15→21:21)
[2018-11-25] MEDS: HEPARIN NA (PORCINE) 5,000 UNITS/ML 1ML VIAL SQ SCH ×2 (11:16→21:19)
[2018-11-25] MEDS: ACETAMINOPHEN 650 MG/20.3 ML ORAL SOLUTION (CUPS) GT PRN (13:33)
--- NOTE | 2018-11-25 14:16 | PN ---
Progress Note (short form) - Note Progress Note: PULMONARY Pt nonverbal. Saturating well on room air. Vital Signs Period Temp Pulse Resp BP Sys/Oropeza Pulse Ox Last 24 Hr 97.5 F-98.9 F 49-73 20-20 119-142/68-88 97-97 Gen: NAD at rest Heart: RRR Lung: decreased breath sounds at the bases Abd: soft, nontender Ext: no edema CBC, BMP 11/22/18 06:34 11/22/18 06:34 Active Medications Acetaminophen (Tylenol Oral Solution -) 650 mg GT Q6H PRN PRN Reason: PAIN LEVEL 1-5 Last Admin: 11/25/18 13:33 Dose: 650 mg Albuterol/Ipratropium (Duoneb -) 1 amp NEB RQID [facility] Last Admin: 11/25/18 11:34 Dose: 1 amp Baclofen (Lioresal -) 10 mg GT TID [facility] Last Admin: 11/25/18 13:32 Dose: 10 mg Bisacodyl (Dulcolax Suppository -) 10 mg RC PRN PRN PRN Reason: CONSTIPATION Last Admin: 11/23/18 10:45 Dose: 10 mg Calcium Carbonate/Cholecalciferol (Os-Mich 500+D -) 2 tab GT HS [facility] Last Admin: 11/24/18 21:51 Dose: 2 tab Cholecalciferol (Vitamin D3 -) 2,000 unit GT HS [facility] Last Admin: 11/24/18 21:51 Dose: 2,000 unit Heparin Sodium (Porcine) (Heparin -) 5,000 unit SQ BID [facility] Last Admin: 11/25/18 11:16 Dose: 5,000 unit Piperacillin Sod/Tazobactam (Sod 3.375 gm/ Dextrose) 50 mls @ 100 mls/hr IVPB Q8H-IV [facility]; Protocol Last Admin: 11/25/18 11:15 Dose: 100 mls/hr Non-Formulary Medication (Lubiprostone [Amitiza]) 24 mcg GT BID [facility] Nystatin (Mycostatin Cream -) 1 applic TP BID [facility] Last Admin: 11/25/18 11:15 Dose: 1 applic Polyethylene Glycol (Miralax (For Daily Use) -) 34 gm GT BID [facility] Last Admin: 11/25/18 11:10 Dose: 34 gm Scopolamine HBr (Transderm-Scop -) 1 patch TD Q72H [facility] Last Admin: 11/25/18 11:15 Dose: 1 patch Senna (Senna Oral Solution -) 8.8 mg PO HS [facility] Last Admin: 11/24/18 21:54 Dose: 8.8 mg A/P Acute Hypoxic Respiratory Failure Pneumonia likely Aspiration Functional Quadriplegia Cerebral Palsy Mental Retardation - complete antibiotics - inhaled bronchodilators - aspiration precautions - DVT prophylaxis - d/c planning
--- NOTE | 2018-11-25 17:23 | PN ---
Progress Note, Physician History of Present Illness: comfortable - Current Medication List Current Medications: Active Medications Acetaminophen (Tylenol Oral Solution -) 650 mg GT Q6H PRN PRN Reason: PAIN LEVEL 1-5 Last Admin: 11/25/18 13:33 Dose: 650 mg Albuterol/Ipratropium (Duoneb -) 1 amp NEB RQID [facility] Last Admin: 11/25/18 16:18 Dose: 1 amp Baclofen (Lioresal -) 10 mg GT TID [facility] Last Admin: 11/25/18 13:32 Dose: 10 mg Bisacodyl (Dulcolax Suppository -) 10 mg RC PRN PRN PRN Reason: CONSTIPATION Last Admin: 11/23/18 10:45 Dose: 10 mg Calcium Carbonate/Cholecalciferol (Os-[place] 500+D -) 2 tab GT [facility] Last Admin: 11/24/18 21:51 Dose: 2 tab Cholecalciferol (Vitamin D3 -) 2,000 unit GT [facility] Last Admin: 11/24/18 21:51 Dose: 2,000 unit Heparin Sodium (Porcine) (Heparin -) 5,000 unit SQ BID [facility] Last Admin: 11/25/18 11:16 Dose: 5,000 unit Piperacillin Sod/Tazobactam (Sod 3.375 gm/ Dextrose) 50 mls @ 100 mls/hr IVPB Q8H-IV [facility]; Protocol Last Admin: 11/25/18 17:21 Dose: 100 mls/hr Non-Formulary Medication (Lubiprostone [Amitiza]) 24 mcg GT BID [facility] Nystatin (Mycostatin Cream -) 1 applic TP BID [facility] Last Admin: 11/25/18 11:15 Dose: 1 applic Polyethylene Glycol (Miralax (For Daily Use) -) 34 gm GT BID [facility] Last Admin: 11/25/18 11:10 Dose: 34 gm Scopolamine HBr (Transderm-Scop -) 1 patch TD Q72H [facility] Last Admin: 11/25/18 11:15 Dose: 1 patch Senna (Senna Oral Solution -) 8.8 mg PO HS [facility] Last Admin: 11/24/18 21:54 Dose: 8.8 mg - Objective Vital Signs: Vital Signs Temperature 98.6 F 11/25/18 14:50 Pulse Rate 71 11/25/18 14:50 Respiratory Rate 20 11/25/18 14:50 Blood Pressure 129/77 11/25/18 14:50 O2 Sat by Pulse Oximetry (%) 97 11/25/18 10:09 Constitutional: Yes: No Distress HENT: Yes: Atraumatic Neck: Yes: Other (trach collar) Cardiovascular: Yes: Regular Rate and Rhythm Respiratory: Yes: Rhonchi Gastrointestinal: Yes: Normal Bowel Sounds, Other (peg in place) Extremities: Yes: Other (contracted) Edema: No Peripheral Pulses WNL: Yes Neurological: Yes: Other (awake) Labs: CBC, BMP 11/22/18 06:34 11/22/18 06:34 INR, PTT INR 1.06 (0.83-1.09) 11/21/18 11:25 Problem List - Problems (1) Aspiration pneumonia Assessment/Plan: dc ivf start tube feeds iv abx Code(s): J69.0 - PNEUMONITIS DUE TO INHALATION OF FOOD AND VOMIT Qualifiers: Aspiration pneumonia type: due to regurgitated food Laterality: unspecified laterality Lung location: unspecified part of lung Qualified Code(s): J69.0 - Pneumonitis due to inhalation of food and vomit (2) Acute and chronic respiratory failure Assessment/Plan: prn oxygen Code(s): J96.20 - ACUTE AND CHR RESP FAILURE, UNSP W HYPOXIA OR HYPERCAPNIA Qualifiers: (4) Quadriplegia Code(s): G82.50 - QUADRIPLEGIA, UNSPECIFIED (5) Increased tracheal secretions Assessment/Plan: on scopolamine patch Code(s): J39.8 - OTHER SPECIFIED DISEASES OF UPPER RESPIRATORY TRACT (6) Constipation Assessment/Plan: on bowel regimen gi on board Code(s): K59.00 - CONSTIPATION, UNSPECIFIED (7) DVT prophylaxis Code(s): [id number] -
[2018-11-25] MEDS: CALCIUM 500MG/VIT-D 200 UNITS COMBO TABLET (FP) GT SCH (21:21)
[2018-11-25] MEDS: CHOLECALCIFEROL (VIT D3) 1,000 UNIT (25 MCG) TABLET GT SCH (21:22)
[2018-11-25] MEDS: SENNOSIDES 8.8 MG/5 ML BULK BOTTLE PO SCH (21:22)
[2018-11-26] MEDS ORDERED: PIPERACILLIN/TAZOBACTAM 3.375 GM VIAL IVPB ONE ×3 (01:30→17:07)
[2018-11-26] MEDS ORDERED: DEXTROSE 5%-WATER - 50 ML IVPB ONE ×3 (01:31→17:07)
[2018-11-26] MEDS: PIPERACILLIN/TAZOB 3.375 GM 3.375 GM in DEXTROSE 5%-WATER - 50 ML IVPB SCH ×3 (02:17→17:37)
[2018-11-26] MEDS: BACLOFEN 10 MG TABLET (FP) GT SCH ×2 (05:43→15:00)
[2018-11-26 07:14] LABS: BASO % 0.4 % (0-2.0); EOS % 3.8 % (0-4.5); HEMATOCRIT 36.8 % (35.4-49); HEMOGLOBIN 12.8 GM/dL (11.7-16.9); LYMPH % 49.4 % (8-40); MCH 31.5 pg (25.7-33.7); MCHC 34.7 g/dl (32.0-35.9); MEAN CELL VOLUME 90.6 fl (80-96); MEAN PLT VOLUME 8.2 fl (7.5-11.1); MONO % 10.9 % (3.8-10.2); NEUT % 35.5 % (42.8-82.8); PLATELET COUNT 368 K/MM3 (134-434); RBC 4.06 M/mm3 (4.00-5.60); RDW 15.2 % (11.9-15.9); WHITE BLOOD COUNT 5.3 K/mm3 (4.0-10.0)
[2018-11-26 07:41] LABS: BILIRUBIN,TOTAL 0.5 mg/dL (0.2-1); BLOOD UREA NITROGEN 6.7 mg/dL (7-18); CALCIUM 9.2 mg/dL (8.5-10.1); CREATININE 0.6 mg/dL (0.55-1.3)
[2018-11-26] MEDS: ALBUTEROL SO4 2.5/IPRATROPIUM 0.5 INH SOL 3 ML VIAL.NEB. NEB SCH ×4 (08:30→21:20)
--- NOTE | 2018-11-26 09:50 | PN ---
Progress Note (short form) - Note Progress Note: PULMONARY Pt nonverbal. Saturating well on room air. Vital Signs Period Temp Pulse Resp BP Sys/Oropeza Pulse Ox Last 24 Hr 97.8 F-99.1 F 61-92 18-20 107-138/66-79 94-97 Gen: NAD at rest Heart: RRR Lung: decreased breath sounds at the bases Abd: soft, nontender Ext: no edema CBC, BMP 11/26/18 06:15 11/26/18 06:15 Active Medications Acetaminophen (Tylenol Oral Solution -) 650 mg GT Q6H PRN PRN Reason: PAIN LEVEL 1-5 Last Admin: 11/25/18 13:33 Dose: 650 mg Albuterol/Ipratropium (Duoneb -) 1 amp NEB RQID [facility] Last Admin: 11/26/18 08:30 Dose: 1 amp Baclofen (Lioresal -) 10 mg GT TID [facility] Last Admin: 11/26/18 05:43 Dose: 10 mg Bisacodyl (Dulcolax Suppository -) 10 mg RC PRN PRN PRN Reason: CONSTIPATION Last Admin: 11/23/18 10:45 Dose: 10 mg Calcium Carbonate/Cholecalciferol (Os-Mich 500+D -) 2 tab GT HS [facility] Last Admin: 11/25/18 21:21 Dose: 2 tab Cholecalciferol (Vitamin D3 -) 2,000 unit GT HS [facility] Last Admin: 11/25/18 21:22 Dose: 2,000 unit Heparin Sodium (Porcine) (Heparin -) 5,000 unit SQ BID [facility] Last Admin: 11/25/18 21:19 Dose: 5,000 unit Piperacillin Sod/Tazobactam (Sod 3.375 gm/ Dextrose) 50 mls @ 100 mls/hr IVPB Q8H-IV [facility]; Protocol Last Admin: 11/26/18 02:17 Dose: 100 mls/hr Non-Formulary Medication (Lubiprostone [Amitiza]) 24 mcg GT BID [facility] Nystatin (Mycostatin Cream -) 1 applic TP BID [facility] Last Admin: 11/25/18 21:21 Dose: 1 applic Polyethylene Glycol (Miralax (For Daily Use) -) 34 gm GT BID [facility] Last Admin: 11/25/18 21:20 Dose: 34 gm Scopolamine HBr (Transderm-Scop -) 1 patch TD Q72H [facility] Last Admin: 11/25/18 11:15 Dose: 1 patch Senna (Senna Oral Solution -) 8.8 mg PO HS [facility] Last Admin: 11/25/18 21:22 Dose: 8.8 mg A/P Acute Hypoxic Respiratory Failure Pneumonia likely Aspiration Functional Quadriplegia Cerebral Palsy Mental Retardation - complete antibiotics - inhaled bronchodilators - aspiration precautions - DVT prophylaxis - d/c planning in progress
[2018-11-26] MEDS: HEPARIN NA (PORCINE) 5,000 UNITS/ML 1ML VIAL SQ SCH ×2 (10:36→23:14)
[2018-11-26] MEDS: POLYETHYLENE GLYCOL 3350 119 GM BTL GT SCH (10:37)
[2018-11-26] MEDS: NYSTATIN 100,000 UNIT/GM TOPICAL CREAM 15 GM TUBE TP SCH ×2 (10:39→23:14)
--- NOTE | 2018-11-26 12:44 | PN ---
Progress Note, Physician History of Present Illness: stable no new issues sating well - Current Medication List Current Medications: Active Medications Acetaminophen (Tylenol Oral Solution -) 650 mg GT Q6H PRN PRN Reason: PAIN LEVEL 1-5 Last Admin: 11/25/18 13:33 Dose: 650 mg Albuterol/Ipratropium (Duoneb -) 1 amp NEB RQID [facility] Last Admin: 11/26/18 11:38 Dose: 1 amp Baclofen (Lioresal -) 10 mg GT TID [facility] Last Admin: 11/26/18 05:43 Dose: 10 mg Bisacodyl (Dulcolax Suppository -) 10 mg RC PRN PRN PRN Reason: CONSTIPATION Last Admin: 11/23/18 10:45 Dose: 10 mg Calcium Carbonate/Cholecalciferol (Os-Mich 500+D -) 2 tab GT HS [facility] Last Admin: 11/25/18 21:21 Dose: 2 tab Cholecalciferol (Vitamin D3 -) 2,000 unit GT HS [facility] Last Admin: 11/25/18 21:22 Dose: 2,000 unit Heparin Sodium (Porcine) (Heparin -) 5,000 unit SQ BID [facility] Last Admin: 11/26/18 10:36 Dose: 5,000 unit Piperacillin Sod/Tazobactam (Sod 3.375 gm/ Dextrose) 50 mls @ 100 mls/hr IVPB Q8H-IV [facility]; Protocol Last Admin: 11/26/18 10:36 Dose: 100 mls/hr Non-Formulary Medication (Lubiprostone [Amitiza]) 24 mcg GT BID [facility] Nystatin (Mycostatin Cream -) 1 applic TP BID [facility] Last Admin: 11/26/18 10:39 Dose: 1 applic Polyethylene Glycol (Miralax (For Daily Use) -) 34 gm GT BID [facility] Last Admin: 11/26/18 10:37 Dose: 34 gm Scopolamine HBr (Transderm-Scop -) 1 patch TD Q72H [facility] Last Admin: 11/25/18 11:15 Dose: 1 patch Senna (Senna Oral Solution -) 8.8 mg PO HS [facility] Last Admin: 11/25/18 21:22 Dose: 8.8 mg - Objective Vital Signs: Vital Signs Temperature 98.2 F 11/26/18 06:00 Pulse Rate 61 11/26/18 06:00 Respiratory Rate 18 08/10/19 06:00 Blood Pressure 123/69 11/26/18 06:00 O2 Sat by Pulse Oximetry (%) 94 L 11/26/18 09:00 Constitutional: Yes: No Distress, Calm Cardiovascular: Yes: S1, S2 Respiratory: Yes: Other (on vent) Gastrointestinal: Yes: Normal Bowel Sounds, Soft Musculoskeletal: Yes: WNL Extremities: Yes: Other Neurological: Yes: Alert, Other Labs: CBC, BMP 11/26/18 06:15 11/26/18 06:15 INR, PTT INR 1.06 (0.83-1.09) 11/21/18 11:25 Assessment/Plan Problem List - Problems (1) Aspiration pneumonia Code(s): J69.0 - PNEUMONITIS DUE TO INHALATION OF FOOD AND VOMIT Qualifiers: Aspiration pneumonia type: due to regurgitated food Laterality: unspecified laterality Lung location: unspecified part of lung Qualified Code(s): J69.0 - Pneumonitis due to inhalation of food and vomit (2) Acute and chronic respiratory failure Code(s): J96.20 - ACUTE AND CHR RESP FAILURE, UNSP W HYPOXIA OR HYPERCAPNIA Qualifiers: (3) Allergy to sulfa drugs Code(s): Z88.2 - ALLERGY STATUS TO SULFONAMIDES STATUS (4) Hypothermia Code(s): T68.XXXA - HYPOTHERMIA, INITIAL ENCOUNTER Qualifiers: (6) Quadriplegia Code(s): G82.50 - QUADRIPLEGIA, UNSPECIFIED (7) Pneumonia Code(s): J18.9 - PNEUMONIA, UNSPECIFIED ORGANISM (8) Atony of colon Code(s): K59.8 - OTHER SPECIFIED FUNCTIONAL INTESTINAL DISORDERS (9) Hypoxemia Code(s): R09.02 - HYPOXEMIA (10) Anemia Code(s): D64.9 - ANEMIA, UNSPECIFIED (11) Fecal impaction in rectum Code(s): K56.41 - FECAL IMPACTION (12) Fecal impaction of colon Code(s): K56.41 - FECAL IMPACTION Assessment/Plan abx aspiration precautions pul on case nutrition rest as per the team
[2018-11-26] MEDS ORDERED: PATIENT'S OWN MEDICATION (NON-FORMULARY) (Lubiprostone [Amitiza] 24 MCG) GT SCH (16:15)
--- NOTE | 2018-11-26 19:15 | PN ---
Progress Note, Physician History of Present Illness: comfortable - Current Medication List Current Medications: Active Medications Acetaminophen (Tylenol Oral Solution -) 650 mg GT Q6H PRN PRN Reason: PAIN LEVEL 1-5 Last Admin: 11/25/18 13:33 Dose: 650 mg Albuterol/Ipratropium (Duoneb -) 1 amp NEB RQID [facility] Last Admin: 11/26/18 15:16 Dose: 1 amp Baclofen (Lioresal -) 10 mg GT TID [facility] Last Admin: 11/26/18 15:00 Dose: 10 mg Bisacodyl (Dulcolax Suppository -) 10 mg RC PRN PRN PRN Reason: CONSTIPATION Last Admin: 11/23/18 10:45 Dose: 10 mg Calcium Carbonate/Cholecalciferol (Os-Mich 500+D -) 2 tab GT HS [facility] Last Admin: 11/25/18 21:21 Dose: 2 tab Cholecalciferol (Vitamin D3 -) 2,000 unit GT [facility] Last Admin: 11/25/18 21:22 Dose: 2,000 unit Heparin Sodium (Porcine) (Heparin -) 5,000 unit SQ BID [facility] Last Admin: 11/26/18 10:36 Dose: 5,000 unit Piperacillin Sod/Tazobactam (Sod 3.375 gm/ Dextrose) 50 mls @ 100 mls/hr IVPB Q8H-IV [facility]; Protocol Last Admin: 11/26/18 17:37 Dose: 100 mls/hr Non-Formulary Medication (Lubiprostone [Amitiza]) 24 mcg GT BID [facility] Nystatin (Mycostatin Cream -) 1 applic TP BID [facility] Last Admin: 11/26/18 10:39 Dose: 1 applic Polyethylene Glycol (Miralax (For Daily Use) -) 34 gm GT BID [facility] Last Admin: 11/26/18 10:37 Dose: 34 gm Scopolamine HBr (Transderm-Scop -) 1 patch TD Q72H [facility] Last Admin: 11/25/18 11:15 Dose: 1 patch Senna (Senna Oral Solution -) 8.8 mg PO HS [facility] Last Admin: 11/25/18 21:22 Dose: 8.8 mg - Objective Vital Signs: Vital Signs Temperature 98.2 F 11/26/18 18:00 Pulse Rate 82 11/26/18 18:00 Respiratory Rate 18 11/26/18 18:00 Blood Pressure 104/68 11/26/18 18:00 O2 Sat by Pulse Oximetry (%) 94 L 11/26/18 09:00 Constitutional: Yes: No Distress HENT: Yes: Atraumatic Neck: Yes: Other (trach collar) Cardiovascular: Yes: Regular Rate and Rhythm Respiratory: Yes: Rhonchi Gastrointestinal: Yes: Normal Bowel Sounds, Other (peg in place) Extremities: Yes: Other (contracted) Labs: CBC, BMP 11/26/18 06:15 11/26/18 06:15 INR, PTT INR 1.06 (0.83-1.09) 11/21/18 11:25 Problem List - Problems (1) Aspiration pneumonia Assessment/Plan: on tube feeds dc abx on RA Code(s): J69.0 - PNEUMONITIS DUE TO INHALATION OF FOOD AND VOMIT Qualifiers: Aspiration pneumonia type: due to regurgitated food Laterality: unspecified laterality Lung location: unspecified part of lung Qualified Code(s): J69.0 - Pneumonitis due to inhalation of food and vomit (2) Acute and chronic respiratory failure Assessment/Plan: prn oxygen on RA Code(s): J96.20 - ACUTE AND CHR RESP FAILURE, UNSP W HYPOXIA OR HYPERCAPNIA Qualifiers: (4) Quadriplegia Code(s): G82.50 - QUADRIPLEGIA, UNSPECIFIED (5) Increased tracheal secretions Assessment/Plan: on scopolamine patch Code(s): J39.8 - OTHER SPECIFIED DISEASES OF UPPER RESPIRATORY TRACT (6) Constipation Assessment/Plan: on bowel regimen gi on board Code(s): K59.00 - CONSTIPATION, UNSPECIFIED (7) DVT prophylaxis Code(s): [id number] -
[2018-11-26] MEDS ORDERED: PT OWN MED DRAWER 7, Y5N ONE (20:43)
[2018-11-27] MEDS ORDERED: PIPERACILLIN/TAZOBACTAM 3.375 GM VIAL IVPB ONE ×3 (00:45→17:20)
[2018-11-27] MEDS ORDERED: DEXTROSE 5%-WATER - 50 ML IVPB ONE ×3 (00:45→17:20)
[2018-11-27] MEDS: PIPERACILLIN/TAZOB 3.375 GM 3.375 GM in DEXTROSE 5%-WATER - 50 ML IVPB SCH ×3 (01:44→17:38)
[2018-11-27] MEDS: SENNOSIDES 8.8 MG/5 ML BULK BOTTLE PO SCH ×2 (01:54→22:57)
[2018-11-27] MEDS: CALCIUM 500MG/VIT-D 200 UNITS COMBO TABLET (FP) GT SCH ×2 (01:55→22:58)
[2018-11-27] MEDS: BACLOFEN 10 MG TABLET (FP) GT SCH ×4 (01:55→22:57)
[2018-11-27] MEDS: POTASSIUM CHLORIDE TABS 10 MEQ TABLET.ER (FP) PO SCH ×2 (01:55→09:47)
[2018-11-27] MEDS: POLYETHYLENE GLYCOL 3350 119 GM BTL GT SCH ×3 (01:55→22:57)
[2018-11-27] MEDS: CHOLECALCIFEROL (VIT D3) 1,000 UNIT (25 MCG) TABLET GT SCH ×2 (01:56→22:57)
[2018-11-27] MEDS: ALBUTEROL SO4 2.5/IPRATROPIUM 0.5 INH SOL 3 ML VIAL.NEB. NEB SCH ×4 (08:02→20:43)
--- NOTE | 2018-11-27 09:41 | PN ---
Progress Note (short form) - Note Progress Note: PULMONARY Pt nonverbal. Saturating well on room air. No fevers recorded. Vital Signs Period Temp Pulse Resp BP Sys/Oropeza Pulse Ox Last 24 Hr 98.2 F-98.9 F 64-82 18-18 104-110/55-74 Gen: NAD at rest Heart: RRR Lung: decreased breath sounds at the bases Abd: soft, nontender Ext: no edema CBC, BMP 11/26/18 06:15 11/26/18 06:15 Active Medications Acetaminophen (Tylenol Oral Solution -) 650 mg GT Q6H PRN PRN Reason: PAIN LEVEL 1-5 Last Admin: 11/25/18 13:33 Dose: 650 mg Albuterol/Ipratropium (Duoneb -) 1 amp NEB RQID [facility] Last Admin: 11/27/18 08:02 Dose: 1 amp Baclofen (Lioresal -) 10 mg GT TID [facility] Last Admin: 11/27/18 06:12 Dose: 10 mg Bisacodyl (Dulcolax Suppository -) 10 mg RC PRN PRN PRN Reason: CONSTIPATION Last Admin: 11/23/18 10:45 Dose: 10 mg Calcium Carbonate/Cholecalciferol (Os-Mich 500+D -) 2 tab GT HS [facility] Last Admin: 11/27/18 01:55 Dose: 2 tab Cholecalciferol (Vitamin D3 -) 2,000 unit GT HS [facility] Last Admin: 11/27/18 01:56 Dose: 2,000 unit Heparin Sodium (Porcine) (Heparin -) 5,000 unit SQ BID [facility] Last Admin: 11/26/18 23:14 Dose: 5,000 unit Piperacillin Sod/Tazobactam (Sod 3.375 gm/ Dextrose) 50 mls @ 100 mls/hr IVPB Q8H-IV [facility]; Protocol Last Admin: 11/27/18 01:44 Dose: 100 mls/hr Non-Formulary Medication (Lubiprostone [Amitiza]) 24 mcg GT BID [facility] Nystatin (Mycostatin Cream -) 1 applic TP BID [facility] Last Admin: 11/26/18 23:14 Dose: 1 applic Polyethylene Glycol (Miralax (For Daily Use) -) 34 gm GT BID [facility] Last Admin: 11/27/18 01:55 Dose: 34 gm Potassium Chloride (K-Dur -) 20 meq PO DAILY [facility] Last Admin: 11/27/18 01:55 Dose: 20 meq Scopolamine HBr (Transderm-Scop -) 1 patch TD Q72H [facility] Last Admin: 11/25/18 11:15 Dose: 1 patch Senna (Senna Oral Solution -) 8.8 mg PO HS [facility] Last Admin: 11/27/18 01:54 Dose: 8.8 mg A/P Acute Hypoxic Respiratory Failure Pneumonia likely Aspiration Functional Quadriplegia Cerebral Palsy Mental Retardation - complete antibiotics - inhaled bronchodilators - aspiration precautions - DVT prophylaxis - d/c planning in progress
[2018-11-27] MEDS: HEPARIN NA (PORCINE) 5,000 UNITS/ML 1ML VIAL SQ SCH ×2 (09:48→22:57)
[2018-11-27] MEDS: NYSTATIN 100,000 UNIT/GM TOPICAL CREAM 15 GM TUBE TP SCH ×2 (09:48→22:57)
--- NOTE | 2018-11-27 12:25 | PN ---
Progress Note, Physician History of Present Illness: stable o new issues - Current Medication List Current Medications: Active Medications Acetaminophen (Tylenol Oral Solution -) 650 mg GT Q6H PRN PRN Reason: PAIN LEVEL 1-5 Last Admin: 11/25/18 13:33 Dose: 650 mg Albuterol/Ipratropium (Duoneb -) 1 amp NEB RQID [facility] Last Admin: 11/27/18 11:34 Dose: 1 amp Baclofen (Lioresal -) 10 mg GT TID [facility] Last Admin: 11/27/18 06:12 Dose: 10 mg Bisacodyl (Dulcolax Suppository -) 10 mg RC PRN PRN PRN Reason: CONSTIPATION Last Admin: 11/23/18 10:45 Dose: 10 mg Calcium Carbonate/Cholecalciferol (Os-[place] 500+D -) 2 tab GT [facility] Last Admin: 11/27/18 01:55 Dose: 2 tab Cholecalciferol (Vitamin D3 -) 2,000 unit GT [facility] Last Admin: 11/27/18 01:56 Dose: 2,000 unit Heparin Sodium (Porcine) (Heparin -) 5,000 unit SQ BID [facility] Last Admin: 11/27/18 09:48 Dose: 5,000 unit Piperacillin Sod/Tazobactam (Sod 3.375 gm/ Dextrose) 50 mls @ 100 mls/hr IVPB Q8H-IV [facility]; Protocol Last Admin: 11/27/18 09:47 Dose: 100 mls/hr Non-Formulary Medication (Lubiprostone [Amitiza]) 24 mcg GT BID [facility] Nystatin (Mycostatin Cream -) 1 applic TP BID [facility] Last Admin: 11/27/18 09:48 Dose: 1 applic Polyethylene Glycol (Miralax (For Daily Use) -) 34 gm GT BID [facility] Last Admin: 11/27/18 09:40 Dose: 34 gm Potassium Chloride (K-Dur -) 20 meq PO DAILY [facility] Last Admin: 11/27/18 09:47 Dose: 20 meq Scopolamine HBr (Transderm-Scop -) 1 patch TD Q72H [facility] Last Admin: 11/25/18 11:15 Dose: 1 patch Senna (Senna Oral Solution -) 8.8 mg PO HS [facility] Last Admin: 11/27/18 01:54 Dose: 8.8 mg - Objective Vital Signs: Vital Signs Temperature 98.6 F 11/27/18 06:00 Pulse Rate 64 11/27/18 06:00 Respiratory Rate 18 11/27/18 06:00 Blood Pressure 109/74 11/27/18 06:00 O2 Sat by Pulse Oximetry (%) 94 L 11/26/18 09:00 Constitutional: Yes: No Distress, Calm Cardiovascular: Yes: S1, S2 Respiratory: Yes: Regular, Poor Air Entry, Other (trach) Gastrointestinal: Yes: Normal Bowel Sounds, Soft Musculoskeletal: Yes: WNL Extremities: Yes: Other Neurological: Yes: Alert Labs: CBC, BMP 11/26/18 06:15 11/26/18 06:15 INR, PTT INR 1.06 (0.83-1.09) 11/21/18 11:25 Assessment/Plan Problem List - Problems (1) Aspiration pneumonia Code(s): J69.0 - PNEUMONITIS DUE TO INHALATION OF FOOD AND VOMIT Qualifiers: Aspiration pneumonia type: due to regurgitated food Laterality: unspecified laterality Lung location: unspecified part of lung Qualified Code(s): J69.0 - Pneumonitis due to inhalation of food and vomit (2) Acute and chronic respiratory failure Code(s): J96.20 - ACUTE AND CHR RESP FAILURE, UNSP W HYPOXIA OR HYPERCAPNIA Qualifiers: (3) Allergy to sulfa drugs Code(s): Z88.2 - ALLERGY STATUS TO SULFONAMIDES STATUS (4) Hypothermia Code(s): T68.XXXA - HYPOTHERMIA, INITIAL ENCOUNTER Qualifiers: (6) Quadriplegia Code(s): G82.50 - QUADRIPLEGIA, UNSPECIFIED (7) Pneumonia Code(s): J18.9 - PNEUMONIA, UNSPECIFIED ORGANISM (8) Atony of colon Code(s): K59.8 - OTHER SPECIFIED FUNCTIONAL INTESTINAL DISORDERS (9) Hypoxemia Code(s): R09.02 - HYPOXEMIA (10) Anemia Code(s): D64.9 - ANEMIA, UNSPECIFIED (11) Fecal impaction in rectum Code(s): K56.41 - FECAL IMPACTION (12) Fecal impaction of colon Code(s): K56.41 - FECAL IMPACTION Assessment/Plan abx aspiration precautions pul on case nutrition rest as per the team
--- NOTE | 2018-11-27 16:05 | PN ---
Progress Note, Physician History of Present Illness: comfortable - Current Medication List Current Medications: Active Medications Acetaminophen (Tylenol Oral Solution -) 650 mg GT Q6H PRN PRN Reason: PAIN LEVEL 1-5 Last Admin: 11/25/18 13:33 Dose: 650 mg Albuterol/Ipratropium (Duoneb -) 1 amp NEB RQID [facility] Last Admin: 11/27/18 15:57 Dose: 1 amp Baclofen (Lioresal -) 10 mg GT TID [facility] Last Admin: 11/27/18 14:59 Dose: 10 mg Bisacodyl (Dulcolax Suppository -) 10 mg RC PRN PRN PRN Reason: CONSTIPATION Last Admin: 11/23/18 10:45 Dose: 10 mg Calcium Carbonate/Cholecalciferol (Os-[place] 500+D -) 2 tab GT [facility] Last Admin: 11/27/18 01:55 Dose: 2 tab Cholecalciferol (Vitamin D3 -) 2,000 unit GT [facility] Last Admin: 11/27/18 01:56 Dose: 2,000 unit Heparin Sodium (Porcine) (Heparin -) 5,000 unit SQ BID [facility] Last Admin: 11/27/18 09:48 Dose: 5,000 unit Piperacillin Sod/Tazobactam (Sod 3.375 gm/ Dextrose) 50 mls @ 100 mls/hr IVPB Q8H-IV [facility]; Protocol Last Admin: 11/27/18 09:47 Dose: 100 mls/hr Non-Formulary Medication (Lubiprostone [Amitiza]) 24 mcg GT BID [facility] Nystatin (Mycostatin Cream -) 1 applic TP BID [facility] Last Admin: 11/27/18 09:48 Dose: 1 applic Polyethylene Glycol (Miralax (For Daily Use) -) 34 gm GT BID [facility] Last Admin: 11/27/18 09:40 Dose: 34 gm Potassium Chloride (K-Dur -) 20 meq PO DAILY [facility] Last Admin: 11/27/18 09:47 Dose: 20 meq Scopolamine HBr (Transderm-Scop -) 1 patch TD Q72H [facility] Last Admin: 11/25/18 11:15 Dose: 1 patch Senna (Senna Oral Solution -) 8.8 mg PO HS [facility] Last Admin: 11/27/18 01:54 Dose: 8.8 mg - Objective Vital Signs: Vital Signs Temperature 98.3 F 08/11/19 14:15 Pulse Rate 55 L 11/27/18 14:15 Respiratory Rate 19 11/27/18 14:15 Blood Pressure 105/60 11/27/18 14:15 O2 Sat by Pulse Oximetry (%) 94 L 11/26/18 09:00 Constitutional: Yes: No Distress HENT: Yes: Atraumatic Neck: Yes: Other (trach collar) Cardiovascular: Yes: Regular Rate and Rhythm Respiratory: Yes: Rhonchi Gastrointestinal: Yes: Normal Bowel Sounds, Other (peg in place) Neurological: Yes: Alert Labs: CBC, BMP 11/26/18 06:15 11/26/18 06:15 INR, PTT INR 1.06 (0.83-1.09) 11/21/18 11:25 Problem List - Problems (1) Aspiration pneumonia Assessment/Plan: on tube feeds dc abx on RA Code(s): J69.0 - PNEUMONITIS DUE TO INHALATION OF FOOD AND VOMIT Qualifiers: Aspiration pneumonia type: due to regurgitated food Laterality: unspecified laterality Lung location: unspecified part of lung Qualified Code(s): J69.0 - Pneumonitis due to inhalation of food and vomit (2) Acute and chronic respiratory failure Assessment/Plan: prn oxygen on RA Code(s): J96.20 - ACUTE AND CHR RESP FAILURE, UNSP W HYPOXIA OR HYPERCAPNIA Qualifiers: (4) Quadriplegia Code(s): G82.50 - QUADRIPLEGIA, UNSPECIFIED (5) Increased tracheal secretions Assessment/Plan: on scopolamine patch Code(s): J39.8 - OTHER SPECIFIED DISEASES OF UPPER RESPIRATORY TRACT (6) Constipation Assessment/Plan: on bowel regimen gi on board Code(s): K59.00 - CONSTIPATION, UNSPECIFIED (7) DVT prophylaxis Code(s): [id number] -
[2018-11-28] MEDS ORDERED: DEXTROSE 5%-WATER - 50 ML IVPB ONE ×2 (02:23→09:44)
[2018-11-28] MEDS ORDERED: PIPERACILLIN/TAZOBACTAM 3.375 GM VIAL IVPB ONE ×2 (02:23→09:44)
[2018-11-28] MEDS: PIPERACILLIN/TAZOB 3.375 GM 3.375 GM in DEXTROSE 5%-WATER - 50 ML IVPB SCH ×2 (02:38→09:55)
[2018-11-28] MEDS: BACLOFEN 10 MG TABLET (FP) GT SCH ×2 (06:11→15:15)
[2018-11-28] MEDS: ALBUTEROL SO4 2.5/IPRATROPIUM 0.5 INH SOL 3 ML VIAL.NEB. NEB SCH ×4 (07:27→20:40)
[2018-11-28 07:33] LABS: BASO % 1.1 % (0-2.0); EOS % 6.6 % (0-4.5); HEMATOCRIT 39.9 % (35.4-49); HEMOGLOBIN 13.4 GM/dL (11.7-16.9); MCH 31.2 pg (25.7-33.7); MCHC 33.6 g/dl (32.0-35.9); MEAN CELL VOLUME 92.8 fl (80-96); MEAN PLT VOLUME 8.7 fl (7.5-11.1); MONO % 12.1 % (3.8-10.2); NEUT % 40.2 % (42.8-82.8); PLATELET COUNT 380 K/MM3 (134-434); RDW 16.3 % (11.9-15.9); WHITE BLOOD COUNT 6.9 K/mm3 (4.0-10.0)
[2018-11-28 08:18] LABS: ALBUMIN 3.1 g/dl (3.4-5.0); BILIRUBIN,TOTAL 0.4 mg/dL (0.2-1); BLOOD UREA NITROGEN 9.7 mg/dL (7-18); CALCIUM 9.1 mg/dL (8.5-10.1); CREATININE 0.6 mg/dL (0.55-1.3); TOT PROT 7.3 g/dl (6.4-8.2)
[2018-11-28] MEDS ORDERED: PT OWN MED DRAWER 7, Y5N ONE (09:44)
[2018-11-28] MEDS: POTASSIUM CHLORIDE TABS 10 MEQ TABLET.ER (FP) PO SCH (09:55)
[2018-11-28] MEDS: HEPARIN NA (PORCINE) 5,000 UNITS/ML 1ML VIAL SQ SCH (09:59)
--- NOTE | 2018-11-28 10:19 | PN ---
Progress Note, Physician History of Present Illness: stable still with thick secretions but much better now - Current Medication List Current Medications: Active Medications Acetaminophen (Tylenol Oral Solution -) 650 mg GT Q6H PRN PRN Reason: PAIN LEVEL 1-5 Last Admin: 11/25/18 13:33 Dose: 650 mg Albuterol/Ipratropium (Duoneb -) 1 amp NEB RQID [facility] Last Admin: 11/28/18 07:27 Dose: 1 amp Baclofen (Lioresal -) 10 mg GT TID [facility] Last Admin: 11/28/18 06:11 Dose: 10 mg Bisacodyl (Dulcolax Suppository -) 10 mg RC PRN PRN PRN Reason: CONSTIPATION Last Admin: 11/23/18 10:45 Dose: 10 mg Calcium Carbonate/Cholecalciferol (Os-Mich 500+D -) 2 tab GT HS [facility] Last Admin: 11/27/18 22:58 Dose: 2 tab Cholecalciferol (Vitamin D3 -) 2,000 unit GT HS [facility] Last Admin: 11/27/18 22:57 Dose: 2,000 unit Heparin Sodium (Porcine) (Heparin -) 5,000 unit SQ BID [facility] Last Admin: 11/27/18 22:57 Dose: 5,000 unit Piperacillin Sod/Tazobactam (Sod 3.375 gm/ Dextrose) 50 mls @ 100 mls/hr IVPB Q8H-IV [facility]; Protocol Last Admin: 11/28/18 02:38 Dose: 100 mls/hr Non-Formulary Medication (Lubiprostone [Amitiza]) 24 mcg GT BID [facility] Nystatin (Mycostatin Cream -) 1 applic TP BID [facility] Last Admin: 11/27/18 22:57 Dose: 1 applic Polyethylene Glycol (Miralax (For Daily Use) -) 34 gm GT BID [facility] Last Admin: 11/27/18 22:57 Dose: 34 gm Potassium Chloride (K-Dur -) 20 meq PO DAILY [facility] Last Admin: 11/27/18 09:47 Dose: 20 meq Scopolamine HBr (Transderm-Scop -) 1 patch TD Q72H [facility] Last Admin: 11/25/18 11:15 Dose: 1 patch Senna (Senna Oral Solution -) 8.8 mg PO HS [facility] Last Admin: 11/27/18 22:57 Dose: 8.8 mg - Objective Vital Signs: Vital Signs Temperature 97.7 F 11/28/18 08:34 Pulse Rate 80 11/28/18 06:00 Respiratory Rate 18 11/28/18 08:34 Blood Pressure 103/64 11/28/18 08:34 O2 Sat by Pulse Oximetry (%) 97 11/27/18 21:00 Constitutional: Yes: No Distress, Calm Cardiovascular: Yes: S1, S2 Respiratory: Yes: Regular, Poor Air Entry, Other (trach) Gastrointestinal: Yes: Normal Bowel Sounds, Soft, Other (peg) Musculoskeletal: Yes: WNL Extremities: Yes: Other Neurological: Yes: Alert, Other Labs: CBC, BMP 11/28/18 06:55 11/28/18 06:55 INR, PTT INR 1.06 (0.83-1.09) 11/21/18 11:25 Assessment/Plan Problem List - Problems (1) Aspiration pneumonia Code(s): J69.0 - PNEUMONITIS DUE TO INHALATION OF FOOD AND VOMIT Qualifiers: Aspiration pneumonia type: due to regurgitated food Laterality: unspecified laterality Lung location: unspecified part of lung Qualified Code(s): J69.0 - Pneumonitis due to inhalation of food and vomit (2) Acute and chronic respiratory failure Code(s): J96.20 - ACUTE AND CHR RESP FAILURE, UNSP W HYPOXIA OR HYPERCAPNIA Qualifiers: (3) Allergy to sulfa drugs Code(s): Z88.2 - ALLERGY STATUS TO SULFONAMIDES STATUS (4) Hypothermia Code(s): T68.XXXA - HYPOTHERMIA, INITIAL ENCOUNTER Qualifiers: (6) Quadriplegia Code(s): G82.50 - QUADRIPLEGIA, UNSPECIFIED (7) Pneumonia Code(s): J18.9 - PNEUMONIA, UNSPECIFIED ORGANISM (8) Atony of colon Code(s): K59.8 - OTHER SPECIFIED FUNCTIONAL INTESTINAL DISORDERS (9) Hypoxemia Code(s): R09.02 - HYPOXEMIA (10) Anemia Code(s): D64.9 - ANEMIA, UNSPECIFIED (11) Fecal impaction in rectum Code(s): K56.41 - FECAL IMPACTION (12) Fecal impaction of colon Code(s): K56.41 - FECAL IMPACTION Assessment/Plan changed to oral augmentin continue suctioning
[2018-11-28] MEDS: POLYETHYLENE GLYCOL 3350 119 GM BTL GT SCH (10:23)
[2018-11-28] MEDS: NYSTATIN 100,000 UNIT/GM TOPICAL CREAM 15 GM TUBE TP SCH (10:26)
[2018-11-28] MEDS: SCOPOLAMINE HYDROBROMIDE 1 PATCH PATCH.TD72 TD SCH (10:40)
--- NOTE | 2018-11-28 15:56 | PN ---
Progress Note (short form) - Note Progress Note: NAD on 28% Trach collar O2. No documented acute events overnight. Intake & Output 11/25/18 11/26/18 11/27/18 11/28/18 23:59 23:59 23:59 23:59 Intake Total 2130 1400 670 790 Balance 2130 1400 670 790 Last Vital Signs Temp Pulse Resp BP Pulse Ox 98.7 F 86 18 110/61 96 11/28/18 14:51 11/28/18 14:51 11/28/18 14:51 11/28/18 14:51 11/28/18 09:00 Active Medications Acetaminophen (Tylenol Oral Solution -) 650 mg GT Q6H PRN PRN Reason: PAIN LEVEL 1-5 Last Admin: 11/25/18 13:33 Dose: 650 mg Albuterol/Ipratropium (Duoneb -) 1 amp NEB RQID [facility] Last Admin: 11/28/18 12:47 Dose: 1 amp Amoxicillin/Clavulanate Potassium (Augmentin - 875mg Tablet) 1 tab PO BID@0800, 1730 [facility] Baclofen (Lioresal -) 10 mg GT TID [facility] Last Admin: 11/28/18 15:15 Dose: 10 mg Bisacodyl (Dulcolax Suppository -) 10 mg RC PRN PRN PRN Reason: CONSTIPATION Last Admin: 11/23/18 10:45 Dose: 10 mg Calcium Carbonate/Cholecalciferol (Os-Mich 500+D -) 2 tab GT HS [facility] Last Admin: 11/27/18 22:58 Dose: 2 tab Cholecalciferol (Vitamin D3 -) 2,000 unit GT HS [facility] Last Admin: 11/27/18 22:57 Dose: 2,000 unit Heparin Sodium (Porcine) (Heparin -) 5,000 unit SQ BID [facility] Last Admin: 11/28/18 09:59 Dose: 5,000 unit Non-Formulary Medication (Lubiprostone [Amitiza]) 24 mcg GT BID [facility] Nystatin (Mycostatin Cream -) 1 applic TP BID [facility] Last Admin: 11/28/18 10:26 Dose: 1 applic Polyethylene Glycol (Miralax (For Daily Use) -) 34 gm GT BID [facility] Last Admin: 11/28/18 10:23 Dose: 34 gm Potassium Chloride (K-Dur -) 20 meq PO DAILY [facility] Last Admin: 11/28/18 09:55 Dose: 20 meq Scopolamine HBr (Transderm-Scop -) 1 patch TD Q72H [facility] Last Admin: 11/28/18 10:40 Dose: 1 patch Senna (Senna Oral Solution -) 8.8 mg PO HS [facility] Last Admin: 11/27/18 22:57 Dose: 8.8 mg Constitutional: Yes: No Distress Eyes: Yes: Conjunctiva Clear HENT: Yes: Atraumatic. No: Thrush Neck: Yes: Supple, Trachea Midline, Other (Tracheostomy intact ) Cardiovascular: Yes: Regular Rate and Rhythm Respiratory: Yes: Diminished, Rhonchi, Tracheostomy intact. No: Accessory Muscle Use, Rales, SOB, Stridor, Wheezes ...Inspection: Yes: Kyphosis, Pectus Carinatum, Scoliosis. No: Use of Accessory Muscles ...Clubbing: No Gastrointestinal: Yes: Hypoactive Bowel Sounds, Other (distended ) Extremities: Yes: Shortened Edema: No Peripheral Pulses WNL: Yes Neurological: Yes: Pre-Existing Deficit Labs: Laboratory Results - last 24 hr 11/28/18 11/28/18 06:55 06:55 WBC 6.9 RBC 4.30 Hgb 13.4 Hct 39.9 MCV 92.8 MCH 31.2 MCHC 33.6 RDW 16.3 H Plt Count 380 MPV 8.7 Absolute Neuts (auto) 2.8 Neutrophils % 40.2 L Lymphocytes % 40.0 Monocytes % 12.1 H Eosinophils % 6.6 H Basophils % 1.1 Nucleated RBC % 0 Sodium 142 Potassium 4.0 Chloride 107 Carbon Dioxide 24 Anion Gap 11 BUN 9.7 Creatinine 0.6 Est GFR (CKD-EPI)AfAm 135.87 Est GFR (CKD-EPI)NonAf 117.23 Random Glucose 101 Calcium 9.1 Total Bilirubin 0.4 AST 56 H ALT 60 Alkaline Phosphatase 111 Total Protein 7.3 Albumin 3.1 L Problem List - Problems (1) Aspiration pneumonia Code(s): J69.0 - PNEUMONITIS DUE TO INHALATION OF FOOD AND VOMIT Qualifiers: Aspiration pneumonia type: due to regurgitated food Laterality: unspecified laterality Lung location: unspecified part of lung Qualified Code(s): J69.0 - Pneumonitis due to inhalation of food and vomit (2) Acute and chronic respiratory failure Code(s): J96.20 - ACUTE AND CHR RESP FAILURE, UNSP W HYPOXIA OR HYPERCAPNIA Qualifiers: (3) Allergy to sulfa drugs Code(s): Z88.2 - ALLERGY STATUS TO SULFONAMIDES STATUS (4) Hypothermia Code(s): T68.XXXA - HYPOTHERMIA, INITIAL ENCOUNTER Qualifiers: (5) Quadriplegia Code(s): G82.50 - QUADRIPLEGIA, UNSPECIFIED (6) Pneumonia Code(s): J18.9 - PNEUMONIA, UNSPECIFIED ORGANISM (7) Atony of colon Code(s): K59.8 - OTHER SPECIFIED FUNCTIONAL INTESTINAL DISORDERS (8) Hypoxemia Code(s): R09.02 - HYPOXEMIA (9) Anemia Code(s): D64.9 - ANEMIA, UNSPECIFIED (10) Fecal impaction in rectum Code(s): K56.41 - FECAL IMPACTION (11) Fecal impaction of colon Code(s): K56.41 - FECAL IMPACTION Assessment/Plan ABX Per ID Trach collar O2 to maintain saturation. Aspiration precautions There is no Pulmonary contraindication for DC back to [facility] Problem List - Problems (1) Aspiration pneumonia Code(s): J69.0 - PNEUMONITIS DUE TO INHALATION OF FOOD AND VOMIT Qualifiers: Aspiration pneumonia type: due to regurgitated food Laterality: unspecified laterality Lung location: unspecified part of lung Qualified Code(s): J69.0 - Pneumonitis due to inhalation of food and vomit (2) Acute and chronic respiratory failure Code(s): J96.20 - ACUTE AND CHR RESP FAILURE, UNSP W HYPOXIA OR HYPERCAPNIA Qualifiers: (3) Allergy to sulfa drugs Code(s): Z88.2 - ALLERGY STATUS TO SULFONAMIDES STATUS (4) Hypothermia Code(s): T68.XXXA - HYPOTHERMIA, INITIAL ENCOUNTER Qualifiers: (6) Quadriplegia Code(s): G82.50 - QUADRIPLEGIA, UNSPECIFIED (7) Pneumonia Code(s): J18.9 - PNEUMONIA, UNSPECIFIED ORGANISM (8) Atony of colon Code(s): K59.8 - OTHER SPECIFIED FUNCTIONAL INTESTINAL DISORDERS (9) Hypoxemia Code(s): R09.02 - HYPOXEMIA (10) Anemia Code(s): D64.9 - ANEMIA, UNSPECIFIED (11) Fecal impaction in rectum Code(s): K56.41 - FECAL IMPACTION (12) Fecal impaction of colon Code(s): K56.41 - FECAL IMPACTION
--- NOTE | 2018-11-28 17:28 | DS ---
Physical Examination Vital Signs: Vital Signs Temperature 98.7 F 11/28/18 14:51 Pulse Rate 86 11/28/18 14:51 Respiratory Rate 18 11/28/18 14:51 Blood Pressure 110/61 11/28/18 14:51 O2 Sat by Pulse Oximetry (%) 96 11/28/18 09:00 Constitutional: Yes: Calm HENT: Yes: Atraumatic Neck: Yes: Other (trach collar) Respiratory: Yes: Rhonchi Gastrointestinal: Yes: Normal Bowel Sounds, Other (peg in place) Edema: No Neurological: Yes: Alert Labs: CBC, BMP 11/28/18 06:55 11/28/18 06:55 Discharge Summary Reason For Visit: ASPIRATION PNEUMONIA Current Active Problems Aspiration pneumonia (Acute) Colonic pseudoobstruction (Acute) Constipation (Acute) Condition: Fair - Instructions Diet, Activity, Other Instructions: continue po augmentin for 7 days enema /laxative prn...for regular Bm oxygen as needed - Home Medications Comprehensive Discharge Medication List: Ambulatory Orders Baclofen 10 mg GT TID 01/29/16 Calcium Carbonate/Vitamin D3 [Oystercal-D 500 mg-400 Unit Tb] 2 tab GT HS Cholecalciferol (Vitamin D3) [Vitamin D3] 2,000 unit GT HS 01/29/16 Magnesium Hydrox 2400MG/30Ml [Milk of Magnesia -] 30 ml GT HS 01/29/16 Simethicone 40 mg GT TID 01/29/16 Bisacodyl Suppository [Dulcolax Suppository -] 10 mg RC [facility] PRN 03/04/18 Albuterol 2.5/Ipratropium 0.5 [Duoneb -] 1 amp NEB RQID amp 03/08/18 Acetaminophen 10 gm GT PRN 11/11/18 Mag Carb/Aluminum Hydrox/Algin [Acid Gone Antacid Liquid] 1 tsp GT TID 11/11/18 Polyethylene Glycol [Polyox Wsr-301] 17 gm GT DAILY 11/11/18 Sodium Phosphate,Woods-Dibasic [Fleet Enema] See Protocol OK ASDIR PRN 11/11/18 Clindamycin [Cleocin -] 300 mg PO Q8H #9 capsule 11/12/18 Lubiprostone [Amitiza] 24 mcg GT BID 11/14/18 Mag Carb/Aluminum Hydrox/Algin [Riginic Suspension] 5 ml GT TID 11/14/18 [place]-3/Dha/Epa/Fish Oil [Fish Oil 1,600 mg/5 ml Liquid] 1,000 mg GT BID Prednisone See Taper PO [facility] #9 tablet 11/14/18 Scopolamine [Transderm-Scop] 1.5 mg TD [facility] 11/14/18 Sennosides [Senna] 17.6 mg GT DAILY 11/14/18 Amox-Tr/K Cl [Augmentin 400 mg/5 ml Oral Suspension -] 5 ml PO BID #70 ml ....7 days dc spoke to dr jarett rizvi who accepted the patient back
[2018-11-28] MEDS ORDERED: AMOX TR/POT CLAV 875MG/125MG TABLETS (FP) PO SCH (17:30)
[2018-11-28 18:20] VITALS: BP 107/66; PULSE 91; TEMP 98.6
== END 2018-11-28 21:01 | disposition home or self-care (01) | DRG 177 ==
LOC: JER 10:09 → JERBED 15:08 → UNDOADMIN 15:08 → J5S 11-22 11:30 → JERBED 11-22 11:30 → UNDODISIN 11-26 16:02 → J5S 11-26 17:16
PROVIDERS: ADMIT Internal Medicine; ATTEND Internal Medicine
DX: J69.0 Pneumonitis due to inhalation of food and vomit (principal); J96.21 Acute and chronic respiratory failure with hypoxia; R53.2 Functional quadriplegia; J98.11 Atelectasis; F73 Profound intellectual disabilities; Z93.0 Tracheostomy status; G80.8 Other cerebral palsy; Q02 Microcephaly; M41.9 Scoliosis, unspecified; K59.00 Constipation, unspecified
CPT/HCPCS: 36415; 71045-TC-FY; 71250-TC; 74018-TC-FY; 74176-TC; 80053; 81003; 82803; 83605; 84484; 85025; 85610; 85730; 87040; 87086; 93005; 93010; 94640; 99285-25; J0475; J1644; J7030

== ENCOUNTER 2018-11-29 11:34 | Inpatient (IN) | payer OTHER | END 2018-12-01 17:24 | disposition home or self-care (01) | LOC: J5S 11-30 11:47 → JER 11:34 → J5S 11-30 16:37 → JERBED 17:45 → J8W 21:47 ==

== ENCOUNTER 2019-02-12 08:42 | Inpatient (IN) | payer OTHER ==
[2019-02-12] MEDS ORDERED: ALBUTEROL SO4 2.5/IPRATROPIUM 0.5 INH SOL 3 ML VIAL.NEB. NEB ONE ×2 (09:33→09:49)
--- NOTE | 2019-02-12 09:36 | PDOC ---
Documentation entered by Serafin Mayes SCRIBE, acting as scribe for Leeann Metzger MD. Leeann Metzger MD: This documentation has been prepared by the Gerber tapia Daniel, SCRIBE, under my direction and personally reviewed by me in its entirety. I confirm that the documentation accurately reflects all work, treatment, procedures, and medical decision making performed by me. Attending Attestation - Resident Resident Name: Julien Augustin - ED Attending Attestation I have performed the following: I have examined & evaluated the patient, The case was reviewed & discussed with the resident, I agree w/resident's findings & plan - HPI HPI: 02/12/19 09:25 The patient is a year old with a past medical history of congenital quadriplegia , severe MR cerebral palsy, non verbal with chronic trach and chronic peg, bedbound/wheelchair, epilepsy disorder, microcephaly, optic nerve atrophy, severe kyphoscoliosis, and recurring tracheitis here today from [place] for evaluation of abdominal distention. The patients aide reports that the patient s meds were coming back up through the G-tube. They also note that the patient has been more distended recently and has not had a bowel movement. Patient is unable to provide history. Allergies: sulfa - Physicial Exam PE: 02/12/19 09:34 Agree with the resident's HPI and PE as documented in the electronic medical record. NAD, well appearing, craniofacial deformity, nonverbal. EOMI, PERRL, nl conjunctiva, anicteric; neck supple. +trach in place. lungs with b/l rhonchi, RRR, abdomen distended, nontender, PEG tube in place, flushing. No rebound, no guarding. Back nontender. DUNN x4, contracted. No peripheral edema. normal color for ethnicity, WWP. - Medical Decision Making 02/12/19 09:35 Vital Signs Temp Pulse Resp BP Pulse Ox 98.8 F 84 18 135/89 94 L 02/12/19 09:37 02/12/19 09:37 02/12/19 09:37 02/12/19 09:37 02/12/19 09:37 Vital signs reviewed within normal limits. No fever. Abdomen is baseline with distention with previous episodes of fecal impaction/constipation and ileus. Will obtain CT imaging to evaluate for obstructive process. PEG tube is flushable here. Rectal exam performed unremarkable, no impacted stool. labs and lytes wnl. lipase and LFTs unremarkable. small BM today usually gets soap enemas for constipation. otherwise at baseline, comfortable, NAD. CT abdomen and pelvis no evidence of obstruction, extensive colonic dilatation is noted though limited due to the patient's habitus per radiologist when discussed in person. PEG tube is also in place in the body of the stomach lung bases with chronic interstitial lung disease is also noted, no infiltrates or pleural effusions are noted. Remainder laboratory work-up is within normal limits, urinalysis is negative for any infection. Had discussed with [facility] [facility] physician who felt with the patient's abdominal distention will not be able to return back to the facility so we will admit to the hospital for serial abdominal exams and further medical management. 02/12/19 10:44 02/12/19 13:43
--- NOTE | 2019-02-12 09:37 | PDOC ---
History of Present Illness - General Stated Complaint: ABD DISTENSION Time Seen by Provider: 02/12/19 08:48 History Source: Intermediate Records Exam Limitations: Clinical Condition - History of Present Illness Initial Comments: 02/13/19 01:30 HPI: 48M Mehul pt PMH cerebral palsy, intellectual disability, congenital quadriplegia, epilepsy BIBEMS for abdominal distention and g-tube problem (meds returning). H/o abdominal distention in this ED. G-tube flushed well in ED today. Unable to obtain hx per pt due to clinical condition. Past History - Travel Traveled outside of the country in the last 30 days: No - Past Medical History Allergies/Adverse Reactions: Allergies Allergy/AdvReac Type Severity Reaction Status Date / Time Sulfa (Sulfonamide AdvReac Verified 11/21/18 15:11 Antibiotics) Home Medications: Ambulatory Orders Baclofen 10 mg GT TID 01/29/16 Calcium Carbonate/Vitamin D3 [Oystercal-D 500 mg-400 Unit Tb] 2 tab GT HS Cholecalciferol (Vitamin D3) [Vitamin D3] 2,000 unit GT HS 01/29/16 Magnesium Hydrox 2400MG/30Ml [Milk of Magnesia -] 30 ml GT HS 01/29/16 Simethicone 40 mg GT TID 01/29/16 Albuterol 2.5/Ipratropium 0.5 [Duoneb -] 1 amp NEB RQID amp 03/08/18 Mag Carb/Aluminum Hydrox/Algin [Acid Gone Antacid Liquid] 1 tsp GT TID 11/11/18 Lubiprostone [Amitiza] 24 mcg GT BID 11/14/18 Mag Carb/Aluminum Hydrox/Algin [Riginic Suspension] 5 ml GT TID 11/14/18 [place]-3/Dha/Epa/Fish Oil [Fish Oil 1,600 mg/5 ml Liquid] 1,000 mg GT BID Prednisone See Taper PO ASDIR #9 tablet 11/14/18 Scopolamine [Transderm-Scop] 1.5 mg TD ASDIR 11/14/18 Sennosides [Senna] 17.6 mg GT DAILY 11/14/18 Amoxicillin/Potassium Clav [Augmentin 875-125 Tablet] 1 each PO BID 4 Days #8 tablet 12/01/18 Docusate Sodium [Colace -] 100 mg GT BID 12/01/18 Enema Bag, Disposable [Enema Bag] 1 unit DAILY 12/01/18 Lubiprostone [Amitiza] 24 mcg GT BID 12/01/18 Miscellaneous Medical Supply [Outpatient Order] 1 each ASDIR #1 misc Polyethylene Glycol 3350 [Miralax 119 gm Btl -] 17 gm PO BID bottle 12/01/18 COPD: Yes (tracheostomy ) Disorders: Yes (gastrostomy) Psychiatric Problems: Yes (mental retardation) Seizures: Yes (EPILEPSY, seizure d/o) - Surgical History Abdominal Surgery: Yes (gastrostomy) Orthopedic Surgery: Yes (spinal fusion/hx osteoperosis left femur fx) - Immunization History Immunization Up to Date: Yes - Psycho Social/Smoking Cessation Hx Smoking History: Never smoked Have you smoked in the past 12 months: No Hx Alcohol Use: No Drug/Substance Use Hx: No Substance Use Type: None Hx Substance Use Treatment: No Review of Systems - Review of Systems Able to Perform ROS?: No (clinical condition) *Physical Exam - Physical Exam Comments: 02/13/19 01:30 PE: LIMITED EXAM GEN: NAD, awake and tracking HEENT: NC/AT, EOMI, PERRLA. No facial asymmetry. CV: S1/S2, RRR, no m/r/g LUNG: Tracheostomy in place, coarse breath sounds, audible congestion ("junky") GI: G-tube in place. Firm, distended, hyperactive BS RECTAL: EXTREMITIES: congenital deformities and contractures noted on UE and LEs. SKIN: warm, dry, normal turgor ED Treatment Course - LABORATORY CBC & Chemistry Diagram: 02/12/19 09:41 02/12/19 09:41 - RADIOLOGY Radiology Studies Ordered: Category Date Time Status ABDOMEN & PELVIS CT WITH CONTR [CT] Stat CT Scan 02/12/19 09:28 Ordered CHEST X-RAY PORTABLE* [RAD] Stat Radiology 02/12/19 09:26 Ordered Medical Decision Making - Medical Decision Making 02/12/19 09:30 MDM: 48M [place] patient BIBEMS for g-tube issue and abdominal distension x1 day. G- tube flushed well in ED Aide at bedside states pt had nonbloody BM this AM and sx started today. Pt receives daily soap enemas. - CBC, CMP, Coags - UA/UC - CXR - Nebs - CT A/P 02/12/19 12:04 labs reviewed UA neg CT A/P IMPRESSION: Markedly limited study with extensive colonic dilatation without obvious obstruction. Clinical correlation and follow-up recommended. - Please see discussion in full report - Trying to contact Dr. Coe regarding CT read CXR showing no significant changes from prior exam per report 02/12/19 12:[address] Coe who read the CT states no SBO or LBO and that limitations of study were due to extensive gas and structural abnormalities. Patient breathing better s/p duonebs though still audibly junky w/ coarse breath sounds 02/12/19 12:49 Spoke to Mehul regarding patient, covering provider Claudia Coles states she is concerned about ileus and very high risk of bouncing back the next day. She has seen the pt in a similar presentation w/ subsequent aspiration. Admit to med/surg 02/12/19 13:04 Endorsed to ENDBANDER Laine Diaz; admitted under Dr. Burch ADMITTED M/S 02/13/19 01:29 Discharge - Discharge Information Problems reviewed: Yes Clinical Impression/Diagnosis: Encounter for medical screening examination Abdominal pain Qualifiers: Abdominal location: unspecified location Qualified Code(s): R10.9 - Unspecified abdominal pain - Admission Yes - Follow up/Referral - Patient Discharge Instructions - Post Discharge Activity
[2019-02-12 09:59] LABS: BASO % 0.6 % (0-2.0); EOS % 3.5 % (0-4.5); HEMOGLOBIN 13.7 GM/dL (11.7-16.9); MCHC 33.3 g/dl (32.0-35.9); MEAN PLT VOLUME 9.5 fl (7.5-11.1); MONO % 13.6 % (3.8-10.2); NEUT % 47.3 % (42.8-82.8); PLATELET COUNT 259 K/MM3 (134-434); RBC 4.41 M/mm3 (4.00-5.60); RDW 16.3 % (11.9-15.9); WHITE BLOOD COUNT 5.9 K/mm3 (4.0-10.0)
[2019-02-12 10:14] LABS: INR 0.97 (0.83-1.09); PROTHROMBIN TIME (PATIENT) 11.4 SEC (9.7-13.0)
[2019-02-12 10:16] LABS: ACTIVATED PTT 39.9 SECONDS (25.2-36.5)
[2019-02-12 10:18] LABS: ALBUMIN 3.7 g/dl (3.4-5.0); BILIRUBIN,TOTAL 0.4 mg/dL (0.2-1); BLOOD UREA NITROGEN 13.2 mg/dL (7-18); CALCIUM 9.5 mg/dL (8.5-10.1); CREATININE 0.7 mg/dL (0.55-1.3); POTASSIUM 3.7 mmol/L (3.5-5.1); TOT PROT 8.4 g/dl (6.4-8.2)
[2019-02-12 10:35] LABS: URINE APPEARANCE CLEAR; URINE BILIRUBIN NEGATIVE (NEGATIVE); URINE COLOR YELLOW; URINE GLUCOSE (UA) NEGATIVE (NEGATIVE); URINE KETONE NEGATIVE (NEGATIVE); URINE LEUK ESTERASE NEGATIVE (NEGATIVE); URINE NITRITE NEGATIVE (NEGATIVE); URINE PROTEIN NEGATIVE (NEGATIVE); URINE UROBILINOGEN 0.2 mg/dL (0.2-1.0)
[2019-02-12] MEDS ORDERED: SODIUM PHOSPHATE/NA BIPHOS 133 ML ENEMA PR ONE (14:12)
--- NOTE | 2019-02-12 14:12 | HP ---
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 No: Asthma, Bronchitis, Cancer, COPD, Pulmonary Embolus, Pulmonary Fibrosis, Sleep Apnea Gastrointestinal: Yes: Constipation, Other (preious Ileus) Musculoskeletal: Yes: Paraplegia, Other (scoloiosis) - Past Surgical History Additional Past Surgical History: PEG - Smoking History Smoking history: Never smoked Have you smoked in the past 12 months: No - Alcohol/Substance Use Hx Alcohol Use: No History of Substance Use: reports: None - Social History ADL: Support Services ([facility][1]) History of Recent Travel: No Home Medications - Allergies Allergies/Adverse Reactions: Allergies Allergy/AdvReac Type Severity Reaction Status Date / Time Sulfa (Sulfonamide AdvReac Verified 11/21/18 15:11 Antibiotics) - Home Medications Home Medications: Ambulatory Orders Baclofen 10 mg GT TID 01/29/16 Calcium Carbonate/Vitamin D3 [Oystercal-D 500 mg-400 Unit Tb] 2 tab GT HS Cholecalciferol (Vitamin D3) [Vitamin D3] 2,000 unit GT HS 01/29/16 Magnesium Hydrox 2400MG/30Ml [Milk of Magnesia -] 30 ml GT HS 01/29/16 Simethicone 40 mg GT TID 01/29/16 Albuterol 2.5/Ipratropium 0.5 [Duoneb -] 1 amp NEB RQID amp 03/08/18 Mag Carb/Aluminum Hydrox/Algin [Acid Gone Antacid Liquid] 1 tsp GT TID 11/11/18 Lubiprostone [Amitiza] 24 mcg GT BID 11/14/18 Mag Carb/Aluminum Hydrox/Algin [Riginic Suspension] 5 ml GT TID 11/14/18 [place]-3/Dha/Epa/Fish Oil [Fish Oil 1,600 mg/5 ml Liquid] 1,000 mg GT BID Prednisone See Taper PO ASDIR #9 tablet 11/14/18 Scopolamine [Transderm-Scop] 1.5 mg TD ASDIR 11/14/18 Sennosides [Senna] 17.6 mg GT DAILY 11/14/18 Amoxicillin/Potassium Clav [Augmentin 875-125 Tablet] 1 each PO BID 4 Days #8 tablet 12/01/18 Docusate Sodium [Colace -] 100 mg GT BID 12/01/18 Enema Bag, Disposable [Enema Bag] 1 unit DAILY 12/01/18 Lubiprostone [Amitiza] 24 mcg GT BID 12/01/18 Miscellaneous Medical Supply [Outpatient Order] 1 each ASDIR #1 misc Polyethylene Glycol 3350 [Miralax 119 gm Btl -] 17 gm PO BID bottle 12/01/18 Family Medical History Family History: Unable to Obtain Review of Systems Unable to obtain ROS, reason: severe MR Physical Examination Vital Signs: Vital Signs Temperature 98.8 F 02/12/19 09:37 Pulse Rate 84 02/12/19 09:37 Respiratory Rate 18 02/12/19 09:37 Blood Pressure 135/89 02/12/19 09:37 O2 Sat by Pulse Oximetry (%) 94 L 02/12/19 09:37 Constitutional: Yes: Mild Distress (grimacing) Eyes: Yes: WNL, Conjunctiva Clear, EOM Intact HENT: Yes: Drooling Neck: Yes: Other (trach) Cardiovascular: Yes: WNL, Regular Rate and Rhythm Respiratory: Yes: Rhonchi, Other (Trach with trach collar, with white secretions ) Gastrointestinal: Yes: Distention, Tenderness (grimaces when palpated, PEG to left quad) ...Rectal Exam: Yes: Deferred Renal/: Yes: Incontinence Breast(s): Yes: WNL Musculoskeletal: Yes: Muscle Weakness, Other (severe contractures BL) Extremities: Yes: WNL Edema: No Peripheral Pulses WNL: Yes Peripheral Pulses: Left Radial: 2+, Right Radial: 2+, Left Doralis Pedis: 2+, Right Dorsalis Pedis: 2+, Left Femoral: 2+, Right Femoral: 2+ Integumentary: Yes: WNL Neurological: Yes: Other (severe MR) Psychiatric: Yes: Other (tracking with eyes, grimacing when touched) Labs: CBC, BMP 02/12/19 09:41 02/12/19 09:41 Imaging - Results Chest X-ray: Image Reviewed (trach noted. Marked bowel dilation. Spinal hardware ) Cat Scan: Report Reviewed ( CT A/P IMPRESSION: Markedly limited study with extensive colonic dilatation without obvious obstruction) Problem List - Problems (1) Functional quadriplegia Assessment/Plan: CP with severe contractures wheel chair bound PT for passive ROM turn & position q 2h skin care Code(s): R53.2 - FUNCTIONAL QUADRIPLEGIA (2) Cerebral palsy Assessment/Plan: [facility] supportive care Code(s): G80.9 - CEREBRAL PALSY, UNSPECIFIED (3) Severe flexion contractures of all joints Assessment/Plan: passive ROM turn and position q 2h Code(s): M24.50 - CONTRACTURE, UNSPECIFIED JOINT (4) Tracheostomy in place Assessment/Plan: Trach in place supplementall O@ to maintain SPO2 >92% suction q4 h or prn Code(s): Z93.0 - TRACHEOSTOMY STATUS (5) PEG (percutaneous endoscopic gastrostomy) status Assessment/Plan: PEG flushing PEG care hold TF until ileus resolves Code(s): Z93.1 - GASTROSTOMY STATUS (6) Abdominal pain Assessment/Plan: grimacing in pain marked colonic dilation NPO reglan q6h Code(s): R10.9 - UNSPECIFIED ABDOMINAL PAIN Qualifiers: Abdominal location: unspecified location Qualified Code(s): R10.9 - Unspecified abdominal pain (7) Dilatation of colon Assessment/Plan: marked colonic dilation NPO reglan q6h fleets enema given-daily use at home GT consultation placed avoid narcotics Code(s): K59.39 - OTHER MEGACOLON (8) Profound mental retardation Assessment/Plan: supportive care Visit type - Emergency Visit Emergency Visit: Yes ED Registration Date: 02/12/19 Care time: The patient presented to the Emergency Department on the above date and was hospitalized for further evaluation of their emergent condition. - New Patient This patient is new to me today: Yes Date on this admission: 02/12/19 - Critical Care Critical Care patient: No
[2019-02-12] MEDS ORDERED: ACETAMINOPHEN 1000 MG/100 ML VIAL (NON FORMULARY) IVPB PRN ×2 (15:55→16:05)
[2019-02-12] MEDS: METOCLOPRAMIDE HCL INJECTION 10 MG/2 ML VIAL IVPUSH SCH ×2 (16:24→21:34)
[2019-02-12] MEDS: ALBUTEROL SO4 2.5/IPRATROPIUM 0.5 INH SOL 3 ML VIAL.NEB. NEB SCH ×2 (16:41→20:00)
[2019-02-12] MEDS ORDERED: SODIUM CHLORIDE FOR INHALATION 3 ML VIAL.NEB IH PRN (17:38)
[2019-02-12] MEDS: HEPARIN NA (PORCINE) 5,000 UNITS/ML 1ML VIAL SQ SCH (21:35)
[2019-02-12] MEDS: POLYETHYLENE GLYCOL 3350 119 GM BTL GT SCH (21:36)
[2019-02-12] MEDS ORDERED: POLYETHYLENE GLYCOL 3350 119 GM BTL PO SCH (22:00)
[2019-02-13] MEDS: METOCLOPRAMIDE HCL INJECTION 10 MG/2 ML VIAL IVPUSH SCH ×4 (02:07→21:43)
[2019-02-13] MEDS: ALBUTEROL SO4 2.5/IPRATROPIUM 0.5 INH SOL 3 ML VIAL.NEB. NEB SCH ×4 (08:00→20:13)
--- NOTE | 2019-02-13 08:21 | PN ---
Progress Note, Physician History of Present Illness: 48M [place] pt PMH cerebral palsy, intellectual disability, congenital quadriplegia, epilepsy BIBEMS for abdominal distention and GT malfunction (meds returning). Multiple admission for abdominal distension/ileus. Unable to obtain hx per pt due to clinical condition. - Current Medication List Current Medications: Active Medications Acetaminophen (Ofirmev Injection -) 1,000 mg IVPB Q6H PRN PRN Reason: PAIN LEVEL 6-10 Albuterol/Ipratropium (Duoneb -) 1 amp NEB RQID [facility] Last Admin: 02/12/19 20:00 Dose: 1 amp Heparin Sodium (Porcine) (Heparin -) 5,000 unit SQ BID [facility] Last Admin: 02/12/19 21:35 Dose: 5,000 unit Metoclopramide HCl (Reglan Injection -) 10 mg IVPUSH Q6H-IV [facility] Last Admin: 02/13/19 02:07 Dose: 10 mg Polyethylene Glycol (Miralax (For Daily Use) -) 34 gm GT BID [facility] Last Admin: 02/12/19 21:36 Dose: 34 gm Sodium Chloride (Normal Saline For Inhalation -) 3 ml IH Q6H PRN PRN Reason: Dyspnea - Objective Vital Signs: Vital Signs Temperature 97.3 F L 02/13/19 06:00 Pulse Rate 53 L 02/13/19 06:00 Respiratory Rate 20 02/13/19 06:00 Blood Pressure 109/64 02/13/19 06:00 O2 Sat by Pulse Oximetry (%) 98 02/12/19 21:00 Additional Findings/Remarks: Constitutional: Yes: no apparent distress, tracks voice) Eyes: Yes: WNL, Conjunctiva Clear, EOM Intact HENT: Yes: Drooling Neck: Yes: Other (trach) Cardiovascular: Yes: WNL, Regular Rate and Rhythm Respiratory: Yes: Rhonchi, Other (Trach with trach collar, with white secretions ) Gastrointestinal: Yes: mild distension compared to yesterday, GT in place ...Rectal Exam: Yes: Deferred Renal/: Yes: Incontinence Breast(s): Yes: WNL Musculoskeletal: Yes: Muscle Weakness, Other (severe contractures BL) Extremities: Yes: WNL Edema: No Peripheral Pulses WNL: Yes Peripheral Pulses: Left Radial: 2+, Right Radial: 2+, Left Doralis Pedis: 2+, Right Dorsalis Pedis: 2+, Left Femoral: 2+, Right Femoral: 2+ Integumentary: Yes: WNL Neurological: Yes: Other (severe MR) Psychiatric: Yes: Other (tracking with eyes, grimacing when touched) Labs: CBC, BMP 02/12/19 09:41 02/12/19 09:41 INR, PTT INR 0.97 (0.83-1.09) 02/12/19 09:41 - ....Imaging X-ray: Image Reviewed (AXR: marked colonic distension, no obstruction) Problem List - Problems (1) Functional quadriplegia Assessment/Plan: CP with severe contractures wheel chair bound PT for passive ROM turn & position q 2h skin care Code(s): R53.2 - FUNCTIONAL QUADRIPLEGIA (2) Cerebral palsy Assessment/Plan: [facility] supportive care Code(s): G80.9 - CEREBRAL PALSY, UNSPECIFIED (3) Severe flexion contractures of all joints Assessment/Plan: passive ROM turn and position q 2h Code(s): M24.50 - CONTRACTURE, UNSPECIFIED JOINT (4) Tracheostomy in place Assessment/Plan: Trach in place supplementall O2 to maintain SPO2 >92% suction q4 h or prn saline nebs Code(s): Z93.0 - TRACHEOSTOMY STATUS (5) PEG (percutaneous endoscopic gastrostomy) status Assessment/Plan: PEG flushing PEG care hold TF until ileus resolves Code(s): Z93.1 - GASTROSTOMY STATUS (6) Abdominal pain Assessment/Plan: not grimicing on abd exam marked colonic dilation on AXR , clinically abd is much less distended large BM last night agressive bowel regimin maintain NPO reglan q6h if AXR does not look improved tomorrow will consult GI for additional recommendations in managing ileus Code(s): R10.9 - UNSPECIFIED ABDOMINAL PAIN Qualifiers: Abdominal location: unspecified location Qualified Code(s): R10.9 - Unspecified abdominal pain (7) Dilatation of colon Assessment/Plan: marked colonic dilation NPO reglan q6h fleets enema given-daily use at home alternating with SSE avoid narcotics Code(s): K59.39 - OTHER MEGACOLON (8) Profound mental retardation Assessment/Plan: supportive care (9) Severe malnutrition Assessment/Plan: BMI 25 presently NPO due to ileus following daily AXR to improvement if not able to feed tomorrow will start clinimix until ileus resolves TF at [facility] 1.5 at goal of 40 Code(s): E43 - UNSPECIFIED SEVERE PROTEIN-CALORIE MALNUTRITION Visit type - Emergency Visit Emergency Visit: Yes ED Registration Date: 02/12/19 Care time: The patient presented to the Emergency Department on the above date and was hospitalized for further evaluation of their emergent condition. - New Patient This patient is new to me today: No - Critical Care Critical Care patient: No - Discharge Referral Referred to [facility] Med P.C.: No
[2019-02-13] MEDS: DEXTROSE 5%-NORMAL SALINE 1,000 ML IV SCH ×2 (10:05→21:42)
[2019-02-13] MEDS: HEPARIN NA (PORCINE) 5,000 UNITS/ML 1ML VIAL SQ SCH ×2 (10:09→21:42)
[2019-02-13] MEDS: POLYETHYLENE GLYCOL 3350 119 GM BTL GT SCH ×2 (10:10→21:43)
[2019-02-13] MEDS: DOCUSATE NA 100 MG/10 ML UNIT-DOSE CUPS GT SCH ×2 (12:20→21:42)
[2019-02-13] MEDS: SENNOSIDES 8.8 MG/5 ML BULK BOTTLE GT SCH (12:21)
[2019-02-13] MEDS: SCOPOLAMINE HYDROBROMIDE 1 PATCH PATCH.TD72 TD SCH (12:28)
[2019-02-13 12:30] LABS: BASO % 0.6 % (0-2.0); EOS % 3.3 % (0-4.5); HEMOGLOBIN 12.6 GM/dL (11.7-16.9); MCHC 33.2 g/dl (32.0-35.9); MEAN CELL VOLUME 93.4 fl (80-96); MEAN PLT VOLUME 9.3 fl (7.5-11.1); NEUT % 37.1 % (42.8-82.8); PLATELET COUNT 241 K/MM3 (134-434); RBC 4.07 M/mm3 (4.00-5.60); RDW 16.2 % (11.9-15.9); WHITE BLOOD COUNT 4.2 K/mm3 (4.0-10.0)
[2019-02-13 12:58] LABS: ALBUMIN 3.2 g/dl (3.4-5.0); BILIRUBIN,TOTAL 0.6 mg/dL (0.2-1); BLOOD UREA NITROGEN 12.4 mg/dL (7-18); CALCIUM 8.6 mg/dL (8.5-10.1); CREATININE 0.6 mg/dL (0.55-1.3); MAGNESIUM 2.4 mg/dL (1.8-2.4); POTASSIUM 3.3 mmol/L (3.5-5.1); TOT PROT 7.2 g/dl (6.4-8.2)
[2019-02-13] MEDS ORDERED: POTASSIUM CHLORIDE ORAL LIQUID 20 MEQ/15 ML PO ONE (15:53)
[2019-02-13] MEDS: BACLOFEN 10 MG TABLET (FP) GT SCH ×2 (16:49→21:42)
[2019-02-13] MEDS: MAGNESIUM HYDROX 2400MG/30ML ORAL SUSPENSION 30 ML CUP GT SCH (21:42)
[2019-02-14] MEDS: METOCLOPRAMIDE HCL INJECTION 10 MG/2 ML VIAL IVPUSH SCH ×4 (02:42→23:19)
[2019-02-14] MEDS: BACLOFEN 10 MG TABLET (FP) GT SCH ×3 (06:09→23:19)
[2019-02-14] MEDS: ALBUTEROL SO4 2.5/IPRATROPIUM 0.5 INH SOL 3 ML VIAL.NEB. NEB SCH ×4 (08:16→19:50)
[2019-02-14 08:32] LABS: BASO % 0.7 % (0-2.0); EOS % 3.4 % (0-4.5); HEMATOCRIT 37.1 % (35.4-49); HEMOGLOBIN 12.1 GM/dL (11.7-16.9); LYMPH % 29.4 % (8-40); MCH 30.9 pg (25.7-33.7); MCHC 32.5 g/dl (32.0-35.9); MEAN CELL VOLUME 94.9 fl (80-96); MEAN PLT VOLUME 9.7 fl (7.5-11.1); MONO % 12.3 % (3.8-10.2); NEUT % 54.2 % (42.8-82.8); PLATELET COUNT 206 K/MM3 (134-434); RBC 3.91 M/mm3 (4.00-5.60); RDW 16.1 % (11.9-15.9); WHITE BLOOD COUNT 4.2 K/mm3 (4.0-10.0)
[2019-02-14 08:58] LABS: BILIRUBIN,TOTAL 0.8 mg/dL (0.2-1); BLOOD UREA NITROGEN 8.6 mg/dL (7-18); CALCIUM 8.1 mg/dL (8.5-10.1); CREATININE 0.5 mg/dL (0.55-1.3); MAGNESIUM 2.6 mg/dL (1.8-2.4); TOT PROT 6.7 g/dl (6.4-8.2)
[2019-02-14] MEDS ORDERED: PT OWN MED DRAWER 7, Y5N ONE (09:28)
[2019-02-14] MEDS: DOCUSATE NA 100 MG/10 ML UNIT-DOSE CUPS GT SCH ×2 (10:00→23:19)
[2019-02-14] MEDS: POLYETHYLENE GLYCOL 3350 119 GM BTL GT SCH ×2 (10:00→23:22)
[2019-02-14] MEDS: SENNOSIDES 8.8 MG/5 ML BULK BOTTLE GT SCH (10:00)
[2019-02-14] MEDS: HEPARIN NA (PORCINE) 5,000 UNITS/ML 1ML VIAL SQ SCH ×2 (10:00→23:19)
[2019-02-14] MEDS ORDERED: DISPOSABLE PR SCH (10:00)
[2019-02-14] MEDS: DEXTROSE 5%-NORMAL SALINE 1,000 ML IV SCH ×2 (11:07→23:22)
[2019-02-14 12:50] VITALS: BMI 25.3
--- NOTE | 2019-02-14 13:43 | PN ---
Physical Exam: SUBJECTIVE: Patient seen and examined at the bedside. In no acute distress. informed by primary RN patient was retaining urine after a bladder scan showed over 800cc or retained urine. OBJECTIVE: Patient is a 48 year old male from [facility] with a significant past medical history of cerebral palsy, intellectual disability, congenital quadriplegia, epilepsy. He was brought into the ED for abdominal distention and GT malfunction (meds returning). Multiple admission for abdominal distension/ ileus. Patient was also noted to be retaining a large amt of urine today. He was straight cathed after bladder scan showed 1000cc of urine retention. Vital Signs Period Temp Pulse Resp BP Sys/Oropeza Pulse Ox Last 24 Hr 96 F-97.6 F 42-63 18-20 102-134/58-79 97-98 GENERAL: hx of cerebral palsy, awake, alert, non verbal HEAD: Normal with no signs of trauma. EYES: PERRL, extraocular movements intact, sclera anicteric, conjunctiva clear. No ptosis. ENT: Ears normal, nares patent, oropharynx clear without exudates, moist mucous membranes. NECK: Trachea midline, full range of motion, supple. LUNGS: Breath sounds equal, clear to auscultation bilaterally, no wheezes, no crackles HEART: Regular rate and rhythm, S1, S2 without murmur, rub or gallop. ABDOMEN: Soft, mildly distended abdomen with + bowel sounds. no pain on palpation of abdomen. EXTREMITIES: no edema. NEUROLOGICAL: non verbal, bed bound PSYCH: Normal mood, normal affect. SKIN: Warm, dry, normal turgor, no rashes or lesions noted Laboratory Results - last 24 hr 02/14/19 02/14/19 06:00 06:50 WBC 4.2 RBC 3.91 L Hgb 12.1 Hct 37.1 MCV 94.9 MCH 30.9 MCHC 32.5 RDW 16.1 H Plt Count 206 MPV 9.7 Absolute Neuts (auto) 2.3 Neutrophils % 54.2 D Lymphocytes % 29.4 D Monocytes % 12.3 H Eosinophils % 3.4 Basophils % 0.7 Nucleated RBC % 0 Sodium 139 Potassium 4.0 Chloride 106 Carbon Dioxide 28 Anion Gap 5 L BUN 8.6 Creatinine 0.5 L Est GFR (CKD-EPI)AfAm 146.45 Est GFR (CKD-EPI)NonAf 126.36 Random Glucose 88 Calcium 8.1 L Magnesium 2.6 H Total Bilirubin 0.8 AST 35 ALT 46 Alkaline Phosphatase 148 H Total Protein 6.7 Albumin 3.0 L Active Medications Generic Name Dose Route Start Last Admin Trade Name Freq PRN Reason Stop Dose Admin Acetaminophen 1,000 mg 02/12/19 16:05 Ofirmev Injection - IVPB Q6H PRN PAIN LEVEL 6-10 Albuterol/Ipratropium 1 amp 02/12/19 16:00 02/14/19 11:37 Duoneb - NEB 1 amp RQID TARIQ Administration Baclofen 10 mg 02/13/19 14:00 02/14/19 06:09 Lioresal - GT 10 mg TID TARIQ Administration Docusate Sodium 100 mg 02/13/19 10:31 02/14/19 10:00 Colace Liquid - GT 100 mg BID [facility]AR[facility] Administration Heparin Sodium (Porcine) 5,000 unit 02/12/19 22:00 02/14/19 10:00 Heparin - SQ 5,000 unit BID TAR[facility] Administration Dextrose/Sodium Chloride 1,000 mls @ 75 mls/hr 02/13/19 09:45 02/14/19 11:07 D5-Ns - IV 75 mls/hr ASDIR [facility] Administration Magnesium Hydroxide 30 ml 02/13/19 22:00 02/13/19 21:42 Milk Of Magnesia - GT 30 ml HS [facility]AR[facility] Administration Metoclopramide HCl 10 mg 02/12/19 15:30 02/14/19 10:00 Reglan Injection - IVPUSH 10 mg Q6H-IV [facility] Administration Non-Formulary Medication 1 tsp 02/13/19 14:00 Mag Carb/Aluminum Hydrox/Algin [Acid Gone Antacid Liquid] GT TID [facility] Polyethylene Glycol 34 gm 02/12/19 22:00 02/14/19 10:00 Miralax (For Daily Use) - GT 34 gm BID [facility] Administration Scopolamine HBr 1 patch 02/13/19 12:00 02/13/19 12:28 Transderm-Scop - TD 1 patch Q72H [facility]AR[facility] Administration Senna 17.6 mg 02/13/19 12:00 02/14/19 10:00 Senna Oral Solution - GT 17.6 mg DAILY [facility] Administration Sodium Chloride 3 ml 02/12/19 17:38 Normal Saline For Inhalation - IH Q6H PRN Dyspnea Sodium Phosphate 133 ml 02/13/19 17:56 Fleet Adult Rectal Enema - WA ONCE PRN CONSTIPATION ASSESSMENT/PLAN: Problem List - Problems (1) Abdominal pain Assessment/Plan: not grimicing on abd exam marked colonic dilation on AXR , clinically abd is much less distended after being straight cathed for urinary retention aggressive bowel regimin maintain NPO reglan q6h GI following Code(s): R10.9 - UNSPECIFIED ABDOMINAL PAIN Qualifiers: Abdominal location: unspecified location Qualified Code(s): R10.9 - Unspecified abdominal pain (2) Severe malnutrition Assessment/Plan: BMI 25 presently holding feeds 2/2 to ileus GI consulted for further recommendations following daily AXR to improvement repeat abd xray in a.m., if no improvement, will start clinimax. TF at [facility] 1.5 at goal of 40 Code(s): E43 - UNSPECIFIED SEVERE PROTEIN-CALORIE MALNUTRITION (3) Dilatation of colon Assessment/Plan: marked colonic dilation hold tube feeds reglan q6h avoid narcotics Code(s): K59.39 - OTHER MEGACOLON (4) Cerebral palsy Assessment/Plan: [place] resident, supportive care. Code(s): G80.9 - CEREBRAL PALSY, UNSPECIFIED (5) Functional quadriplegia Code(s): R53.2 - FUNCTIONAL QUADRIPLEGIA (6) PEG (percutaneous endoscopic gastrostomy) status Assessment/Plan: hold tube feeds until ileus resolves Code(s): Z93.1 - GASTROSTOMY STATUS (7) Tracheostomy in place Assessment/Plan: Trach in place supplementall O2 to maintain SPO2 >92% suction q4 h or prn saline nebs Code(s): Z93.0 - TRACHEOSTOMY STATUS (8) Prophylactic measure Assessment/Plan: fen continue ivf hydration monitor electrolytes hold feeds, restart once cleared by gi Code(s): Z29.9 - ENCOUNTER FOR PROPHYLACTIC MEASURES, UNSPECIFIED Visit type - Emergency Visit Emergency Visit: Yes ED Registration Date: 02/12/19 Care time: The patient presented to the Emergency Department on the above date and was hospitalized for further evaluation of their emergent condition. - New Patient This patient is new to me today: Yes Date on this admission: 02/14/19 - Critical Care Critical Care patient: No - Discharge Referral Referred to [facility] Med P.C.: No
--- NOTE | 2019-02-14 14:54 | PN ---
Progress Note (short form) - Note Progress Note: GI CONSULT DICTATED - TAP WATER ENEMAS - SENNA 2 TABS PO QHS - REPEAT AXR TOMORROW - RECTAL TUBE FOR DECOMPRESSION SEE FULL CONSULT
--- NOTE | 2019-02-14 15:13 | PN ---
Progress Note (short form) - Note Progress Note: Called to evaluate patient, however already seen by Dr. Mathur. Abdomen distended. Nurse states improved after hamilton placed with over 1000cc retained urine removed, Rectal tube placed and lavaged with 500cc sterile water while patient in left lateral position. Air and liquid stool expelled. Turned to the right lateral decubitus position with continued air and liquid stool expulsion. Improvement in tympany and abdominal distention. AXR in AM
--- NOTE | 2019-02-14 15:49 | CONS ---
DATE OF CONSULTATION: DATE OF DICTATION: 02/14/2019 GASTROINTESTINAL CONSULTATION HISTORY OF PRESENT ILLNESS: The patient is a 48-year-old resident with a past medical history significant for cerebral palsy, intellectual disability, congenital quadriplegia, epilepsy, chronic abdominal distention, who is brought in by EMS for worsening abdominal distention. In the past he appears to have had multiple admissions for ileus and distention secondary to his underlying condition. Additional history cannot be obtained. PAST MEDICAL AND SURGICAL HISTORY: As listed in the HPI with the addition of a PEG tube placement. SOCIAL HISTORY: Does not smoke, drink, or use drugs. FAMILY HISTORY: Unable to obtain. HOME MEDICATIONS: Reviewed. REVIEW OF SYSTEMS: Unable to obtain secondary to his clinical status. PHYSICAL EXAMINATION: Vital Signs: Temperature 97, pulse 44, blood pressure 113/67, respiratory rate 18, pulse oximetry 97% on trach collar, 40% FiO2. General: In no acute distress. HEENT: Anicteric sclerae. Cardiovascular: S1, S2, regular rate and rhythm. Lungs: Clear anteriorly. Abdomen: Distended and tympanic without tenderness or rebound. PEG tube in place. Extremities: No edema. Contracted. LABORATORY: White blood cell count 4.2, hemoglobin and hematocrit 12/37, MCV 94 , platelet count 206. INR 0.97. Sodium 139, potassium 4, BUN over creatinine 8.6 /0.5, glucose 88, total bilirubin 0.8. AST 35, ALT 46, alkaline phosphatase 148, lipase 146, albumin 3. Urine is negative. CT scan of abdomen and pelvis was performed on the and revealed limited study with extensive colonic dilation, also with abdominal x-ray which was done the following day which revealed fecal impaction, dilated rectum, in addition urinary bladder distention. On a repeat x-ray on the , it appears that the rectum is filled with liquid stool and fecal material , and a rectal tube was recommended. 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 RECOMMENDATION: Tap water enemas which can be administered daily. Would start him on senna 2 tabs p.o. per PEG tube nightly after he has received enemas. Rectal tube should be placed for decompression. Avoid narcotics. Repeat axr in the am. Keep electrolytes within normal limits. Would also benefit from surgery evaluation. DO MYA LUND/[id number] MTDD
[2019-02-14] MEDS: MAGNESIUM HYDROX 2400MG/30ML ORAL SUSPENSION 30 ML CUP GT SCH (23:19)
[2019-02-15] MEDS: METOCLOPRAMIDE HCL INJECTION 10 MG/2 ML VIAL IVPUSH SCH (02:42)
[2019-02-15] MEDS: BACLOFEN 10 MG TABLET (FP) GT SCH ×3 (06:18→21:57)
[2019-02-15] MEDS: ALBUTEROL SO4 2.5/IPRATROPIUM 0.5 INH SOL 3 ML VIAL.NEB. NEB SCH ×4 (08:35→21:07)
[2019-02-15 08:41] LABS: BASO % 0.5 % (0-2.0); EOS % 2.1 % (0-4.5); HEMATOCRIT 36.3 % (35.4-49); LYMPH % 24.9 % (8-40); MCH 31.1 pg (25.7-33.7); MEAN CELL VOLUME 94.1 fl (80-96); MEAN PLT VOLUME 9.4 fl (7.5-11.1); MONO % 9.4 % (3.8-10.2); NEUT % 63.1 % (42.8-82.8); PLATELET COUNT 208 K/MM3 (134-434); RBC 3.86 M/mm3 (4.00-5.60); RDW 16.2 % (11.9-15.9); WHITE BLOOD COUNT 4.7 K/mm3 (4.0-10.0)
[2019-02-15 09:16] LABS: BILIRUBIN,TOTAL 0.6 mg/dL (0.2-1); BLOOD UREA NITROGEN 3.8 mg/dL (7-18); CALCIUM 8.4 mg/dL (8.5-10.1); CREATININE 0.4 mg/dL (0.55-1.3); MAGNESIUM 2.4 mg/dL (1.8-2.4); POTASSIUM 3.8 mmol/L (3.5-5.1); TOT PROT 6.8 g/dl (6.4-8.2)
[2019-02-15] MEDS ORDERED: PT OWN MED DRAWER 7, Y5N ONE (10:22)
[2019-02-15] MEDS: POLYETHYLENE GLYCOL 3350 119 GM BTL GT SCH ×2 (10:35→21:57)
[2019-02-15] MEDS: HEPARIN NA (PORCINE) 5,000 UNITS/ML 1ML VIAL SQ SCH ×2 (10:35→21:57)
[2019-02-15] MEDS: SENNOSIDES 8.8 MG/5 ML BULK BOTTLE GT SCH (10:36)
[2019-02-15] MEDS: DOCUSATE NA 100 MG/10 ML UNIT-DOSE CUPS GT SCH ×2 (10:36→21:57)
--- NOTE | 2019-02-15 12:09 | EKG ---
Test Reason : Blood Pressure : / mmHG Vent. Rate : 046 BPM Atrial Rate : 046 BPM P-R Int : 192 ms QRS Dur : 092 ms QT Int : 432 ms P-R-T Axes : 028 025 028 degrees QTc Int : 378 ms SINUS BRADYCARDIA OTHERWISE NORMAL ECG WHEN COMPARED WITH ECG OF 29-NOV-2018 17:07, VENT. RATE HAS DECREASED BY 45 BPM QT HAS SHORTENED Confirmed by MANDEEP COLES, JOANNE ([id number]) on 02/15/2019 12:09:33 PM Referred By: Dallin LEDEZMA Confirmed By:JOANNE KAUFMAN MD
[2019-02-15] MEDS: MAG CARB GT SCH ×2 (12:35→12:36)
[2019-02-15] MEDS: ALUMINUM HYDROX GT SCH ×2 (12:35→12:36)
[2019-02-15] MEDS: [UNRECOGNIZED DRUG - OTHER] GT SCH ×2 (12:35→12:36)
[2019-02-15] MEDS: ALGIN GT SCH ×2 (12:35→12:36)
[2019-02-15] MEDS: AMINO ACIDS 4.25%/D5W 1,000 ML IV SCH (14:27)
[2019-02-15] MEDS: SODIUM PHOSPHATE/NA BIPHOS 133 ML ENEMA PR PRN (14:27)
--- NOTE | 2019-02-15 15:59 | PN ---
Physical Exam: SUBJECTIVE: Patient seen and examined at the bedside. OBJECTIVE: Patient is a 48 year old male from [facility] with a significant past medical history of cerebral palsy, intellectual disability, congenital quadriplegia, epilepsy. He was brought into the ED for abdominal distention and GT malfunction (meds returning). Multiple admission for abdominal distension/ ileus. patient noted to have bradycardia on EKG. will stop reglan as it may be contributing, if not improving, will consult cardiology. Vital Signs Period Temp Pulse Resp BP Sys/Oropeza Pulse Ox Last 24 Hr 96.1 F-97.4 F 43-54 16-18 100-117/65-79 97-98 GENERAL: hx of cerebral palsy, awake, alert, non verbal HEAD: Normal with no signs of trauma. EYES: PERRL, extraocular movements intact, sclera anicteric, conjunctiva clear. No ptosis. ENT: Ears normal, nares patent, oropharynx clear without exudates, moist mucous membranes. NECK: Trachea midline, full range of motion, supple. LUNGS: Breath sounds equal, clear to auscultation bilaterally, no wheezes, no crackles HEART: regular rate with bradycardia. ABDOMEN: Soft, mildly distended abdomen with + bowel sounds. no pain on palpation of abdomen. EXTREMITIES: no edema. NEUROLOGICAL: non verbal, bed bound PSYCH: Normal mood, normal affect. SKIN: Warm, dry, normal turgor, no rashes or lesions noted Laboratory Results - last 24 hr 02/15/19 02/15/19 06:00 07:03 WBC 4.7 RBC 3.86 L Hgb 12.0 Hct 36.3 MCV 94.1 MCH 31.1 MCHC 33.0 RDW 16.2 H Plt Count 208 MPV 9.4 Absolute Neuts (auto) 2.9 Neutrophils % 63.1 Lymphocytes % 24.9 Monocytes % 9.4 Eosinophils % 2.1 Basophils % 0.5 Nucleated RBC % 0 Sodium 142 Potassium 3.8 Chloride 110 H Carbon Dioxide 26 Anion Gap 6 L BUN 3.8 L Creatinine 0.4 L Est GFR (CKD-EPI)AfAm 160.51 Est GFR (CKD-EPI)NonAf 138.49 Random Glucose 80 Calcium 8.4 L Magnesium 2.4 Total Bilirubin 0.6 AST 29 ALT 42 Alkaline Phosphatase 148 H Total Protein 6.8 Albumin 3.0 L Active Medications Generic Name Dose Route Start Last Admin Trade Name Freq PRN Reason Stop Dose Admin Acetaminophen 1,000 mg 02/12/19 16:05 Ofirmev Injection - IVPB Q6H PRN PAIN LEVEL 6-10 Albuterol/Ipratropium 1 amp 02/12/19 16:00 02/15/19 11:51 Duoneb - NEB 1 amp RQID TARIQ Administration Baclofen 10 mg 02/13/19 14:00 02/15/19 13:37 Lioresal - GT 10 mg TID TARIQ Administration Docusate Sodium 100 mg 02/13/19 10:31 02/15/19 10:36 Colace Liquid - GT 100 mg BID TARIQ Administration Heparin Sodium (Porcine) 5,000 unit 02/12/19 22:00 02/15/19 10:35 Heparin - SQ 5,000 unit BID TARIQ Administration Amino Acids 1,000 mls @ 84 mls/hr 02/15/19 12:45 02/15/19 14:27 Clinimix - IV 84 mls/hr Q12H TARIQ Administration Magnesium Hydroxide 30 ml 02/13/19 22:00 02/14/19 23:19 Milk Of Magnesia - GT 30 ml HS TARIQ Administration Polyethylene Glycol 34 gm 02/12/19 22:00 02/15/19 10:35 Miralax (For Daily Use) - GT 34 gm BID TARIQ Administration Scopolamine HBr 1 patch 02/13/19 12:00 02/13/19 12:28 Transderm-Scop - TD 1 patch Q72H TARIQ Administration Senna 17.6 mg 02/13/19 12:00 02/15/19 10:36 Senna Oral Solution - GT 17.6 mg DAILY TARIQ Administration Sodium Chloride 3 ml 02/12/19 17:38 Normal Saline For Inhalation - IH Q6H PRN Dyspnea Sodium Phosphate 133 ml 02/13/19 17:56 02/15/19 14:27 Fleet Adult Rectal Enema - [place] 133 ml ONCE PRN Administration CONSTIPATION ASSESSMENT/PLAN: Problem List - Problems (1) Bradycardia by electrocardiogram Assessment/Plan: heart rate 40s, 50s since on reglan. will stop reglan and monitor heart rate. if no improvement, will consult cardiology. Code(s): R00.1 - BRADYCARDIA, UNSPECIFIED (2) Abdominal pain Assessment/Plan: not grimicing on abd exam, appears comfortable otherwise. abdominal xray without changes from yesterday. feeds on hold. will start on clinimax for prolonged NPO. aggressive bowel regimin maintain NPO GI following Code(s): R10.9 - UNSPECIFIED ABDOMINAL PAIN Qualifiers: Abdominal location: unspecified location Qualified Code(s): R10.9 - Unspecified abdominal pain (3) Severe malnutrition Assessment/Plan: BMI 25 presently holding feeds 2/2 to ileus following daily AXR to improvement abd xray with no improvement, will start clinimax. Code(s): E43 - UNSPECIFIED SEVERE PROTEIN-CALORIE MALNUTRITION (4) Dilatation of colon Assessment/Plan: marked colonic dilation hold tube feeds avoid narcotics Code(s): K59.39 - OTHER MEGACOLON (5) Cerebral palsy Assessment/Plan: [facility], supportive care. Code(s): G80.9 - CEREBRAL PALSY, UNSPECIFIED (6) Functional quadriplegia Code(s): R53.2 - FUNCTIONAL QUADRIPLEGIA (7) PEG (percutaneous endoscopic gastrostomy) status Assessment/Plan: hold tube feeds until ileus resolves Code(s): Z93.1 - GASTROSTOMY STATUS (8) Tracheostomy in place Assessment/Plan: Trach in place supplementall O2 to maintain SPO2 >92% suction q4 h or prn saline nebs Code(s): Z93.0 - TRACHEOSTOMY STATUS (9) Prophylactic measure Assessment/Plan: fen continue ivf hydration monitor electrolytes hold feeds, restart once cleared by gi Code(s): Z29.9 - ENCOUNTER FOR PROPHYLACTIC MEASURES, UNSPECIFIED Visit type - Emergency Visit Emergency Visit: Yes ED Registration Date: 02/12/19 Care time: The patient presented to the Emergency Department on the above date and was hospitalized for further evaluation of their emergent condition. - New Patient This patient is new to me today: No - Critical Care Critical Care patient: No - Discharge Referral Referred to [facility] Med P.C.: No
--- NOTE | 2019-02-15 17:29 | PN.GI ---
GI Progress Note Subjective: Pt seen/examined at bedside, nonverbal, appears comfortable, had large amount of greenish loose stool and gas expelled following rectal tube yesterday per Dr. Ennis, no further bm yet today. Discussed with nursing staff. - Objective Vital Signs: Vital Signs Temperature 97.3 F L 02/15/19 14:32 Pulse Rate 45 L 02/15/19 14:32 Respiratory Rate 18 02/15/19 14:32 Blood Pressure 117/68 02/15/19 14:32 O2 Sat by Pulse Oximetry (%) 98 02/15/19 09:00 Constitutional: No Distress, Calm, Other (Nonverbal, appears comfortable, contracted) Cardiovascular: Yes: WNL, Regular Rate and Rhythm Respiratory: Yes: WNL, Regular, CTA Bilaterally ...Palpate: Yes: Other (Abd softly, mildly distended, no tenderness elicited) Labs: CBC, BMP 02/15/19 07:03 02/15/19 06:00 INR, PTT INR 0.97 (0.83-1.09) 02/12/19 09:41 Problem List - Problems (1) Colonic pseudoobstruction Assessment/Plan: 48yo male h/o cerebral palsy, congenital quadriplegia, mental retardation, and epilepsy s/p trach and PEG with colonic dilation s/p rectal tube yesterday with large amount of liquid green stool and flatus expelled. Exam improved, abd xray still revealing colonic dilation, likely chronic. -Continue continue supportive measures -Recommend tap water enema daily -Miralax bid -Repeat abd xray in am -Monitor and replete electrolytes -Recommend frequent repositioning/rotating in bed if possible -If improvement and bm noted, could start feeds likely tomorrow at slow rate and increase as tolerated Discussed with nursing staff Code(s): K59.8 - OTHER SPECIFIED FUNCTIONAL INTESTINAL DISORDERS
[2019-02-15] MEDS: MAGNESIUM HYDROX 2400MG/30ML ORAL SUSPENSION 30 ML CUP GT SCH (21:57)
[2019-02-16] MEDS: AMINO ACIDS 4.25%/D5W 1,000 ML IV SCH ×2 (01:52→14:08)
[2019-02-16] MEDS: BACLOFEN 10 MG TABLET (FP) GT SCH ×3 (05:26→22:18)
[2019-02-16] MEDS: ALBUTEROL SO4 2.5/IPRATROPIUM 0.5 INH SOL 3 ML VIAL.NEB. NEB SCH ×4 (08:00→20:18)
[2019-02-16 08:48] LABS: BASO % 0.7 % (0-2.0); EOS % 2.3 % (0-4.5); HEMATOCRIT 37.3 % (35.4-49); HEMOGLOBIN 12.5 GM/dL (11.7-16.9); LYMPH % 34.1 % (8-40); MCH 31.1 pg (25.7-33.7); MCHC 33.5 g/dl (32.0-35.9); MEAN CELL VOLUME 92.9 fl (80-96); MEAN PLT VOLUME 9.4 fl (7.5-11.1); NEUT % 50.9 % (42.8-82.8); PLATELET COUNT 236 K/MM3 (134-434); RBC 4.01 M/mm3 (4.00-5.60); WHITE BLOOD COUNT 4.9 K/mm3 (4.0-10.0)
[2019-02-16] MEDS ORDERED: PT OWN MED DRAWER 7, Y5N ONE (09:38)
[2019-02-16] MEDS: SENNOSIDES 8.8 MG/5 ML BULK BOTTLE GT SCH (10:02)
[2019-02-16] MEDS: POLYETHYLENE GLYCOL 3350 119 GM BTL GT SCH ×2 (10:02→22:18)
[2019-02-16] MEDS: DOCUSATE NA 100 MG/10 ML UNIT-DOSE CUPS GT SCH (10:02)
[2019-02-16] MEDS: HEPARIN NA (PORCINE) 5,000 UNITS/ML 1ML VIAL SQ SCH ×2 (10:02→22:18)
[2019-02-16 10:14] LABS: ALBUMIN 3.2 g/dl (3.4-5.0); BILIRUBIN,TOTAL 0.6 mg/dL (0.2-1); BLOOD UREA NITROGEN 16.4 mg/dL (7-18); CALCIUM 8.5 mg/dL (8.5-10.1); CREATININE 0.5 mg/dL (0.55-1.3); POTASSIUM 3.4 mmol/L (3.5-5.1); TOT PROT 7.4 g/dl (6.4-8.2)
[2019-02-16] MEDS ORDERED: KCL 10 MEQ IVPB 10 MEQ/100 ML INFUS.BAG IVPB SCH (12:00)
[2019-02-16] MEDS: SCOPOLAMINE HYDROBROMIDE 1 PATCH PATCH.TD72 TD SCH (12:58)
--- NOTE | 2019-02-16 16:10 | PN ---
Physical Exam: SUBJECTIVE: Patient seen and examined at the bedside. felt warm to touch this morning and found to have a rectal temp of 100.3F, given tylenol. monitor for fevers, his wbc is stable. OBJECTIVE: Patient is a 48 year old male from [facility] [place] with a significant past medical history of cerebral palsy, intellectual disability, congenital quadriplegia, epilepsy. He was brought into the ED for abdominal distention and GT malfunction (meds returning). Multiple admission for abdominal distension/ ileus. patient noted to have bradycardia on EKG and on vitals signs. stopped reglan and improved the heart rate. Vital Signs Period Temp Pulse Resp BP Sys/Oropeza Pulse Ox Last 24 Hr 97.6 F-100.3 F 65-99 18-20 120-132/66-87 96-98 GENERAL: hx of cerebral palsy, awake, alert, non verbal HEAD: Normal with no signs of trauma. EYES: PERRL, extraocular movements intact, sclera anicteric, conjunctiva clear. No ptosis. ENT: Ears normal, nares patent, oropharynx clear without exudates, moist mucous membranes. NECK: Trachea midline, full range of motion, supple. LUNGS: Breath sounds equal, clear to auscultation bilaterally, no wheezes, no crackles HEART: regular rate ABDOMEN: Soft, mildly distended abdomen with + bowel sounds. no pain on palpation of abdomen. EXTREMITIES: no edema. NEUROLOGICAL: non verbal, bed bound PSYCH: Normal mood, normal affect. SKIN: Warm, dry, normal turgor, no rashes or lesions noted Laboratory Results - last 24 hr 02/16/19 02/16/19 07:20 07:20 WBC 4.9 RBC 4.01 Hgb 12.5 Hct 37.3 MCV 92.9 MCH 31.1 MCHC 33.5 RDW 16.0 H Plt Count 236 MPV 9.4 Absolute Neuts (auto) 2.5 Neutrophils % 50.9 Lymphocytes % 34.1 D Monocytes % 12.0 H Eosinophils % 2.3 Basophils % 0.7 Nucleated RBC % 0 Sodium 139 Potassium 3.4 L Chloride 104 Carbon Dioxide 23 Anion Gap 12 BUN 16.4 Creatinine 0.5 L Est GFR (CKD-EPI)AfAm 146.45 Est GFR (CKD-EPI)NonAf 126.36 Random Glucose 79 Calcium 8.5 Magnesium 2.0 Total Bilirubin 0.6 AST 25 ALT 42 Alkaline Phosphatase 153 H Total Protein 7.4 Albumin 3.2 L Active Medications Generic Name Dose Route Start Last Admin Trade Name Freq PRN Reason Stop Dose Admin Acetaminophen 1,000 mg 02/12/19 16:05 02/16/19 12:58 Ofirmev Injection - IVPB 1,000 mg Q6H PRN Administration PAIN LEVEL 6-10 Albuterol/Ipratropium 1 amp 02/12/19 16:00 02/16/19 11:50 Duoneb - NEB 1 amp RQID TARIQ Administration Baclofen 10 mg 02/13/19 14:00 02/16/19 05:26 Lioresal - GT 10 mg TID TARIQ Administration Docusate Sodium 100 mg 02/13/19 10:31 02/16/19 10:02 Colace Liquid - GT 100 mg BID TARIQ Administration Heparin Sodium (Porcine) 5,000 unit 02/12/19 22:00 02/16/19 10:02 Heparin - SQ 5,000 unit BID TARIQ Administration Amino Acids 1,000 mls @ 84 mls/hr 02/15/19 12:45 02/16/19 14:08 Clinimix - IV 84 mls/hr Q12H TARIQ Administration Magnesium Hydroxide 30 ml 02/13/19 22:00 02/15/19 21:57 Milk Of Magnesia - GT 30 ml HS TARIQ Administration Polyethylene Glycol 34 gm 02/12/19 22:00 02/16/19 10:02 Miralax (For Daily Use) - GT 34 gm BID TARIQ Administration Scopolamine HBr 1 patch 02/13/19 12:00 02/16/19 12:58 Transderm-Scop - TD 1 patch Q72H TARIQ Administration Senna 17.6 mg 02/13/19 12:00 02/16/19 10:02 Senna Oral Solution - GT 17.6 mg DAILY TARIQ Administration Sodium Chloride 3 ml 02/12/19 17:38 Normal Saline For Inhalation - IH Q6H PRN Dyspnea Sodium Phosphate 133 ml 02/13/19 17:56 02/15/19 14:27 Fleet Adult Rectal Enema - [place] 133 ml ONCE PRN Administration CONSTIPATION ASSESSMENT/PLAN: Problem List - Problems (1) Bradycardia by electrocardiogram Assessment/Plan: bradycardia resolved after d/c reglan. monitor with vital signs Code(s): R00.1 - BRADYCARDIA, UNSPECIFIED (2) Abdominal pain Assessment/Plan: not grimicing on abd exam, appears comfortable otherwise. abdominal xray without changes. feeds on hold and now on clinimax for prolonged NPO. aggressive bowel regimin maintain NPO GI following, notes reviewed and appreciated Code(s): R10.9 - UNSPECIFIED ABDOMINAL PAIN Qualifiers: Abdominal location: unspecified location Qualified Code(s): R10.9 - Unspecified abdominal pain (3) Severe malnutrition Assessment/Plan: BMI 25 presently holding feeds 2/2 to ileus following daily AXR to improvement abd xray with no improvement Code(s): E43 - UNSPECIFIED SEVERE PROTEIN-CALORIE MALNUTRITION (4) Dilatation of colon Assessment/Plan: marked colonic dilation hold tube feeds avoid narcotics Code(s): K59.39 - OTHER MEGACOLON (5) Cerebral palsy Assessment/Plan: [facility] sim[facility], supportive care. Code(s): G80.9 - CEREBRAL PALSY, UNSPECIFIED (6) Functional quadriplegia Code(s): R53.2 - FUNCTIONAL QUADRIPLEGIA (7) PEG (percutaneous endoscopic gastrostomy) status Assessment/Plan: hold tube feeds until ileus resolves Code(s): Z93.1 - GASTROSTOMY STATUS (8) Tracheostomy in place Assessment/Plan: Trach in place supplementall O2 to maintain SPO2 >92% suction q4 h or prn saline nebs Code(s): Z93.0 - TRACHEOSTOMY STATUS (9) Prophylactic measure Assessment/Plan: fen continue ivf hydration monitor electrolytes hold feeds, restart once cleared by gi Code(s): Z29.9 - ENCOUNTER FOR PROPHYLACTIC MEASURES, UNSPECIFIED Visit type - Emergency Visit Emergency Visit: Yes ED Registration Date: 02/12/19 Care time: The patient presented to the Emergency Department on the above date and was hospitalized for further evaluation of their emergent condition. - New Patient This patient is new to me today: No - Critical Care Critical Care patient: No - Discharge Referral Referred to [facility] Med P.C.: No
--- NOTE | 2019-02-16 16:54 | PN.GI ---
GI Progress Note Subjective: AXR with air distention No acute events - Objective Vital Signs: Vital Signs Temperature 97.6 F 02/16/19 15:13 Pulse Rate 92 H 02/16/19 15:13 Respiratory Rate 18 02/16/19 15:13 Blood Pressure 132/87 02/16/19 15:13 O2 Sat by Pulse Oximetry (%) 96 02/16/19 09:00 Constitutional: Calm Eyes: No: Sclera Icterus Cardiovascular: Yes: Tachycardia Respiratory: Yes: Diminished ...Auscultate: Yes: Normoactive Bowel Sounds ...Palpate: Yes: Soft. 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
[2019-02-16] MEDS: MAGNESIUM HYDROX 2400MG/30ML ORAL SUSPENSION 30 ML CUP GT SCH (22:18)
[2019-02-17] MEDS: AMINO ACIDS 4.25%/D5W 1,000 ML IV SCH ×2 (02:26→14:46)
[2019-02-17] MEDS: BACLOFEN 10 MG TABLET (FP) GT SCH ×3 (05:43→21:22)
[2019-02-17 08:18] LABS: BASO % 0.7 % (0-2.0); HEMATOCRIT 36.4 % (35.4-49); HEMOGLOBIN 12.4 GM/dL (11.7-16.9); LYMPH % 42.1 % (8-40); MCH 31.4 pg (25.7-33.7); MCHC 34.2 g/dl (32.0-35.9); MEAN CELL VOLUME 91.9 fl (80-96); MEAN PLT VOLUME 8.8 fl (7.5-11.1); MONO % 13.3 % (3.8-10.2); NEUT % 41.9 % (42.8-82.8); PLATELET COUNT 232 K/MM3 (134-434); RBC 3.96 M/mm3 (4.00-5.60); RDW 15.8 % (11.9-15.9); WHITE BLOOD COUNT 4.9 K/mm3 (4.0-10.0)
[2019-02-17] MEDS: ALBUTEROL SO4 2.5/IPRATROPIUM 0.5 INH SOL 3 ML VIAL.NEB. NEB SCH ×4 (08:35→20:40)
[2019-02-17 09:05] LABS: ALBUMIN 3.2 g/dl (3.4-5.0); BILIRUBIN,TOTAL 0.9 mg/dL (0.2-1); BLOOD UREA NITROGEN 24.1 mg/dL (7-18); CALCIUM 7.9 mg/dL (8.5-10.1); CREATININE 0.5 mg/dL (0.55-1.3); TOT PROT 7.1 g/dl (6.4-8.2)
[2019-02-17] MEDS ORDERED: PT OWN MED DRAWER 7, Y5N ONE (10:09)
[2019-02-17] MEDS: SENNOSIDES 8.8 MG/5 ML BULK BOTTLE GT SCH (11:49)
[2019-02-17] MEDS: POLYETHYLENE GLYCOL 3350 119 GM BTL GT SCH ×2 (11:49→21:25)
[2019-02-17] MEDS: HEPARIN NA (PORCINE) 5,000 UNITS/ML 1ML VIAL SQ SCH ×2 (11:49→21:28)
--- NOTE | 2019-02-17 13:00 | PN ---
Physical Exam: SUBJECTIVE: Patient seen and examined OBJECTIVE: Patient is a 48 year old male from [facility] with a significant past medical history of cerebral palsy, intellectual disability, congenital quadriplegia, epilepsy. He was brought into the ED for abdominal distention and GT malfunction (meds returning). Multiple admission for abdominal distension/ ileus. had a bm today, start feeds of vital and increase as tolerated. Vital Signs Period Temp Pulse Resp BP Sys/Oropeza Pulse Ox Last 24 Hr 97.4 F-99.3 F 48-92 18-18 96-132/42-87 96-98 GENERAL: hx of cerebral palsy, awake, alert, non verbal HEAD: Normal with no signs of trauma. EYES: PERRL, extraocular movements intact, sclera anicteric, conjunctiva clear. No ptosis. ENT: Ears normal, nares patent, oropharynx clear without exudates, moist mucous membranes. NECK: Trachea midline, full range of motion, supple. LUNGS: Breath sounds equal, clear to auscultation bilaterally, no wheezes, no crackles HEART: regular rate ABDOMEN: Soft, mildly distended abdomen with + bowel sounds. no pain on palpation of abdomen. EXTREMITIES: no edema. NEUROLOGICAL: non verbal, bed bound PSYCH: Normal mood, normal affect. SKIN: Warm, dry, normal turgor, no rashes or lesions noted Laboratory Results - last 24 hr 02/17/19 02/17/19 07:32 07:32 WBC 4.9 RBC 3.96 L Hgb 12.4 Hct 36.4 MCV 91.9 MCH 31.4 MCHC 34.2 RDW 15.8 Plt Count 232 MPV 8.8 Absolute Neuts (auto) 2.1 Neutrophils % 41.9 L Lymphocytes % 42.1 H D Monocytes % 13.3 H Eosinophils % 2.0 Basophils % 0.7 Nucleated RBC % 0 Sodium 140 Potassium 3.0 L Chloride 103 Carbon Dioxide 28 Anion Gap 9 BUN 24.1 H Creatinine 0.5 L Est GFR (CKD-EPI)AfAm 146.45 Est GFR (CKD-EPI)NonAf 126.36 Random Glucose 82 Calcium 7.9 L Magnesium 2.0 Total Bilirubin 0.9 AST 31 ALT 37 Alkaline Phosphatase 141 H Total Protein 7.1 Albumin 3.2 L Active Medications Generic Name Dose Route Start Last Admin Trade Name Freq PRN Reason Stop Dose Admin Acetaminophen 1,000 mg 02/12/19 16:05 02/16/19 12:58 Ofirmev Injection - IVPB 1,000 mg Q6H PRN Administration PAIN LEVEL 6-10 Albuterol/Ipratropium 1 amp 02/12/19 16:00 02/17/19 12:17 Duoneb - NEB 1 amp RQID TARIQ Administration Baclofen 10 mg 02/13/19 14:00 02/17/19 05:43 Lioresal - GT 10 mg TID TARIQ Administration Heparin Sodium (Porcine) 5,000 unit 02/12/19 22:00 02/17/19 11:49 Heparin - SQ 5,000 unit BID TARIQ Administration Amino Acids 1,000 mls @ 84 mls/hr 02/15/19 12:45 02/17/19 02:26 Clinimix - IV 84 mls/hr Q12H TARIQ Administration Magnesium Hydroxide 30 ml 02/13/19 22:00 02/16/19 22:18 Milk Of Magnesia - GT 30 ml HS TARIQ Administration Polyethylene Glycol 34 gm 02/12/19 22:00 02/17/19 11:49 Miralax (For Daily Use) - GT 34 gm BID TARIQ Administration Scopolamine HBr 1 patch 02/13/19 12:00 02/16/19 12:58 Transderm-Scop - TD 1 patch Q72H TARIQ Administration Senna 17.6 mg 02/13/19 12:00 02/17/19 11:49 Senna Oral Solution - GT 17.6 mg DAILY TARIQ Administration Sodium Chloride 3 ml 02/12/19 17:38 Normal Saline For Inhalation - IH Q6H PRN Dyspnea Sodium Phosphate 133 ml 02/13/19 17:56 02/15/19 14:27 Fleet Adult Rectal Enema - [place] 133 ml ONCE PRN Administration CONSTIPATION ASSESSMENT/PLAN: Problem List - Problems (1) Bradycardia by electrocardiogram Assessment/Plan: monitor with vital signs Code(s): R00.1 - BRADYCARDIA, UNSPECIFIED (2) Abdominal pain Assessment/Plan: not grimicing on abd exam, appears comfortable otherwise. abdominal xray without changes. aggressive bowel regimen re start feed today, stop clinimax GI following, notes reviewed and appreciated Code(s): R10.9 - UNSPECIFIED ABDOMINAL PAIN Qualifiers: Abdominal location: unspecified location Qualified Code(s): R10.9 - Unspecified abdominal pain (3) Severe malnutrition Assessment/Plan: BMI 25 restart feeds cleared by GI. Code(s): E43 - UNSPECIFIED SEVERE PROTEIN-CALORIE MALNUTRITION (4) Dilatation of colon Assessment/Plan: marked colonic dilation avoid narcotics Code(s): K59.39 - OTHER MEGACOLON (5) Cerebral palsy Assessment/Plan: [facility] resident, supportive care. Code(s): G80.9 - CEREBRAL PALSY, UNSPECIFIED (6) Functional quadriplegia Code(s): R53.2 - FUNCTIONAL QUADRIPLEGIA (7) PEG (percutaneous endoscopic gastrostomy) status Assessment/Plan: GI notes reviewed and recommended. restart feeds and monitor. Code(s): Z93.1 - GASTROSTOMY STATUS (8) Tracheostomy in place Assessment/Plan: Trach in place supplementall O2 to maintain SPO2 >92% suction q4 h or prn saline nebs Code(s): Z93.0 - TRACHEOSTOMY STATUS (9) Prophylactic measure Assessment/Plan: fen continue ivf hydration monitor electrolytes dina 1.2 and titrated up per protocol Code(s): Z29.9 - ENCOUNTER FOR PROPHYLACTIC MEASURES, UNSPECIFIED Visit type - Emergency Visit Emergency Visit: Yes ED Registration Date: 02/12/19 Care time: The patient presented to the Emergency Department on the above date and was hospitalized for further evaluation of their emergent condition. - New Patient This patient is new to me today: No - Critical Care Critical Care patient: No - Discharge Referral Referred to [facility] Med P.C.: No
[2019-02-17] MEDS ORDERED: POTASSIUM CHLORIDE ORAL LIQUID 20 MEQ/15 ML PEG ONE (20:59)
[2019-02-17] MEDS: MAGNESIUM HYDROX 2400MG/30ML ORAL SUSPENSION 30 ML CUP GT SCH (21:22)
[2019-02-18] MEDS: BACLOFEN 10 MG TABLET (FP) GT SCH ×3 (06:36→23:35)
--- NOTE | 2019-02-18 07:53 | PN.GI ---
GI Progress Note Subjective: had bm last night as per RN ; no other events reported feeds tolerated - Objective Vital Signs: Vital Signs Temperature 97.8 F 02/18/19 05:00 Pulse Rate 63 02/18/19 05:00 Respiratory Rate 18 02/18/19 05:00 Blood Pressure 103/70 02/18/19 05:00 O2 Sat by Pulse Oximetry (%) 97 02/17/19 21:00 Constitutional: Well Nourished, No Distress, Calm Eyes: Yes: WNL HENT: Yes: WNL Neck: Yes: WNL Cardiovascular: Yes: WNL Respiratory: Yes: WNL Gastrointestinal Inspection: Yes: Other (bowel sounds presents ; less distended abdomen ; tympanitic not tender ; peg) Extremities: Yes: WNL Labs: CBC, BMP 02/17/19 07:32 02/17/19 07:32 INR, PTT INR 0.97 (0.83-1.09) 02/12/19 09:41 Problem List - Problems (1) Pseudoobstruction of colon Assessment/Plan: c/w senna added cleansing tap water enemas daily to prevent future impaction rectal tube for Decompression as needed c/w tube feeds Code(s): K59.8 - OTHER SPECIFIED FUNCTIONAL INTESTINAL DISORDERS (2) Abdominal pain Code(s): R10.9 - UNSPECIFIED ABDOMINAL PAIN Qualifiers: Abdominal location: unspecified location Qualified Code(s): R10.9 - Unspecified abdominal pain
[2019-02-18] MEDS: ALBUTEROL SO4 2.5/IPRATROPIUM 0.5 INH SOL 3 ML VIAL.NEB. NEB SCH ×4 (08:00→19:50)
[2019-02-18 09:33] LABS: BASO % 0.5 % (0-2.0); EOS % 3.7 % (0-4.5); HEMATOCRIT 39.3 % (35.4-49); HEMOGLOBIN 13.3 GM/dL (11.7-16.9); LYMPH % 31.9 % (8-40); MCH 31.3 pg (25.7-33.7); MCHC 33.8 g/dl (32.0-35.9); MEAN CELL VOLUME 92.5 fl (80-96); MEAN PLT VOLUME 9.1 fl (7.5-11.1); MONO % 13.6 % (3.8-10.2); NEUT % 50.3 % (42.8-82.8); PLATELET COUNT 249 K/MM3 (134-434); RBC 4.25 M/mm3 (4.00-5.60); RDW 15.6 % (11.9-15.9); WHITE BLOOD COUNT 5.5 K/mm3 (4.0-10.0)
[2019-02-18 10:36] LABS: ALBUMIN 3.4 g/dl (3.4-5.0); BILIRUBIN,TOTAL 0.6 mg/dL (0.2-1); CALCIUM 8.8 mg/dL (8.5-10.1); CREATININE 0.5 mg/dL (0.55-1.3); MAGNESIUM 2.5 mg/dL (1.8-2.4); POTASSIUM 3.9 mmol/L (3.5-5.1); TOT PROT 7.6 g/dl (6.4-8.2)
[2019-02-18] MEDS ORDERED: POTASSIUM CHLORIDE ORAL LIQUID 20 MEQ/15 ML GT ONE (10:38)
[2019-02-18] MEDS ORDERED: FUROSEMIDE 40 MG/4 ML INJECTABLE VIAL IVPUSH ONE (11:15)
--- NOTE | 2019-02-18 11:15 | PN ---
Physical Exam: SUBJECTIVE: Patient seen and examined at the bedside. some congestion noted anteriorly. OBJECTIVE: Patient is a 48 year old male from [facility] with a significant past medical history of cerebral palsy, intellectual disability, congenital quadriplegia, epilepsy. He was brought into the ED for abdominal distention and GT malfunction (meds returning). Multiple admission for abdominal distension/ ileus. some congestion noted anteriorly. for chest xray and one dose of lasix 20 x 1. Vital Signs Period Temp Pulse Resp BP Sys/Oropeza Pulse Ox Last 24 Hr 97.3 F-98.5 F 50-63 18-18 103-127/68-75 97 GENERAL: hx of cerebral palsy, awake, alert, non verbal HEAD: Normal with no signs of trauma. EYES: PERRL, extraocular movements intact, sclera anicteric, conjunctiva clear. No ptosis. ENT: Ears normal, nares patent, oropharynx clear without exudates, moist mucous membranes. NECK: Trachea midline, full range of motion, supple. LUNGS: scattered mild rhonchi on anterior upper lobes. HEART: regular rate ABDOMEN: Soft, mildly distended abdomen with + bowel sounds. no pain on palpation of abdomen. EXTREMITIES: no edema. NEUROLOGICAL: non verbal, bed bound PSYCH: Normal mood, normal affect. SKIN: Warm, dry, normal turgor, no rashes or lesions noted Laboratory Results - last 24 hr 02/18/19 02/18/19 08:00 08:00 WBC 5.5 RBC 4.25 Hgb 13.3 Hct 39.3 MCV 92.5 MCH 31.3 MCHC 33.8 RDW 15.6 Plt Count 249 MPV 9.1 Absolute Neuts (auto) 2.7 Neutrophils % 50.3 D Lymphocytes % 31.9 D Monocytes % 13.6 H Eosinophils % 3.7 D Basophils % 0.5 Nucleated RBC % 0 Sodium 141 Potassium 3.9 Chloride 107 Carbon Dioxide 28 Anion Gap 5 L BUN 20.0 H Creatinine 0.5 L Est GFR (CKD-EPI)AfAm 146.45 Est GFR (CKD-EPI)NonAf 126.36 Random Glucose 79 Calcium 8.8 Magnesium 2.5 H Total Bilirubin 0.6 AST 40 H ALT 41 Alkaline Phosphatase 152 H Total Protein 7.6 Albumin 3.4 Active Medications Generic Name Dose Route Start Last Admin Trade Name Freq PRN Reason Stop Dose Admin Acetaminophen 1,000 mg 02/12/19 16:05 02/16/19 12:58 Ofirmev Injection - IVPB 1,000 mg Q6H PRN Administration PAIN LEVEL 6-10 Albuterol/Ipratropium 1 amp 02/12/19 16:00 02/18/19 08:00 Duoneb - NEB 1 amp RQID TARIQ Administration Baclofen 10 mg 02/13/19 14:00 02/18/19 06:36 Lioresal - GT 10 mg TID TARIQ Administration Furosemide 20 mg 02/18/19 11:15 Lasix Injection - IVPUSH 02/18/19 11:16 ONCE ONE Heparin Sodium (Porcine) 5,000 unit 02/12/19 22:00 02/17/19 21:28 Heparin - SQ 5,000 unit BID TARIQ Administration Magnesium Hydroxide 30 ml 02/13/19 22:00 02/17/19 21:22 Milk Of Magnesia - GT 30 ml HS TARIQ Administration Polyethylene Glycol 34 gm 02/12/19 22:00 02/17/19 21:25 Miralax (For Daily Use) - GT 34 gm BID TARIQ Administration Scopolamine HBr 1 patch 02/13/19 12:00 02/16/19 12:58 Transderm-Scop - TD 1 patch Q72H TARIQ Administration Senna 17.6 mg 02/13/19 12:00 02/17/19 11:49 Senna Oral Solution - GT 17.6 mg DAILY TARIQ Administration Sodium Chloride 3 ml 02/12/19 17:38 Normal Saline For Inhalation - IH Q6H PRN Dyspnea Sodium Phosphate 133 ml 02/13/19 17:56 02/15/19 14:27 Fleet Adult Rectal Enema - NM 133 ml ONCE PRN Administration CONSTIPATION ASSESSMENT/PLAN: Problem List - Problems (1) Bradycardia by electrocardiogram Assessment/Plan: monitor with vital signs Code(s): R00.1 - BRADYCARDIA, UNSPECIFIED (2) Abdominal pain Assessment/Plan: not grimicing on abd exam, appears comfortable otherwise. abdominal xray without changes. aggressive bowel regimen restarted feeds and tolerated them so far. GI following, notes reviewed and appreciated Code(s): R10.9 - UNSPECIFIED ABDOMINAL PAIN Qualifiers: Abdominal location: unspecified location Qualified Code(s): R10.9 - Unspecified abdominal pain (3) Severe malnutrition Assessment/Plan: BMI 25 restart feeds cleared by GI. Code(s): E43 - UNSPECIFIED SEVERE PROTEIN-CALORIE MALNUTRITION (4) Dilatation of colon Assessment/Plan: marked colonic dilation avoid narcotics Code(s): K59.39 - OTHER MEGACOLON (5) Cerebral palsy Assessment/Plan: Mehul resident, supportive care. Code(s): G80.9 - CEREBRAL PALSY, UNSPECIFIED (6) Functional quadriplegia Code(s): R53.2 - FUNCTIONAL QUADRIPLEGIA (7) PEG (percutaneous endoscopic gastrostomy) status Assessment/Plan: GI notes reviewed and recommended. restart feeds and monitor. Code(s): Z93.1 - GASTROSTOMY STATUS (8) Tracheostomy in place Assessment/Plan: Trach in place supplementall O2 to maintain SPO2 >92% suction q4 h or prn saline nebs Code(s): Z93.0 - TRACHEOSTOMY STATUS (9) Prophylactic measure Assessment/Plan: fen continue ivf hydration monitor electrolytes dina 1.2 and titrated up per protocol Code(s): Z29.9 - ENCOUNTER FOR PROPHYLACTIC MEASURES, UNSPECIFIED Visit type - Emergency Visit Emergency Visit: Yes ED Registration Date: 02/12/19 Care time: The patient presented to the Emergency Department on the above date and was hospitalized for further evaluation of their emergent condition. - New Patient This patient is new to me today: No - Critical Care Critical Care patient: No - Discharge Referral Referred to [facility] No
[2019-02-18] MEDS ORDERED: PT OWN MED DRAWER 7, Y5N ONE ×2 (11:40→11:55)
[2019-02-18] MEDS: SENNOSIDES 8.8 MG/5 ML BULK BOTTLE GT SCH (11:57)
[2019-02-18] MEDS: HEPARIN NA (PORCINE) 5,000 UNITS/ML 1ML VIAL SQ SCH ×2 (11:58→23:35)
[2019-02-18] MEDS: POLYETHYLENE GLYCOL 3350 119 GM BTL GT SCH ×2 (13:40→23:50)
[2019-02-18] MEDS: NYSTATIN POWDER 100,000 UNITS/GM - 15 GM TOPICAL POWDER TP SCH ×2 (15:34→23:51)
[2019-02-18] MEDS: MAGNESIUM HYDROX 2400MG/30ML ORAL SUSPENSION 30 ML CUP GT SCH (23:35)
[2019-02-19] MEDS: BACLOFEN 10 MG TABLET (FP) GT SCH ×3 (06:15→22:30)
--- NOTE | 2019-02-19 06:56 | PN.GI ---
GI Progress Note Subjective: no new events - Objective Vital Signs: Vital Signs Temperature 97.5 F L 02/18/19 23:00 Pulse Rate 59 L 02/18/19 23:00 Respiratory Rate 20 02/18/19 23:00 Blood Pressure 118/85 02/18/19 23:00 O2 Sat by Pulse Oximetry (%) 99 02/18/19 21:00 Constitutional: Well Nourished, No Distress, Calm Eyes: Yes: WNL HENT: Yes: WNL Neck: Yes: WNL Cardiovascular: Yes: WNL Respiratory: Yes: WNL, Regular, CTA Bilaterally Gastrointestinal Inspection: Yes: WNL ...Auscultate: Yes: Normoactive Bowel Sounds, Other (tympanitic ; not tender; peg) Extremities: Yes: WNL Labs: CBC, BMP 02/18/19 08:00 02/18/19 08:00 INR, PTT INR 0.97 (0.83-1.09) 02/12/19 09:41 Problem List - Problems (1) Pseudoobstruction of colon Assessment/Plan: c/w senna cleansing tap water enemas daily to prevent future impaction rectal tube for Decompression as needed c/w tube feeds Code(s): K59.8 - OTHER SPECIFIED FUNCTIONAL INTESTINAL DISORDERS (2) Abdominal pain Code(s): R10.9 - UNSPECIFIED ABDOMINAL PAIN Qualifiers: Abdominal location: unspecified location Qualified Code(s): R10.9 - Unspecified abdominal pain
[2019-02-19] MEDS: ALBUTEROL SO4 2.5/IPRATROPIUM 0.5 INH SOL 3 ML VIAL.NEB. NEB SCH ×4 (07:10→20:02)
[2019-02-19 07:33] LABS: BASO % 0.3 % (0-2.0); HEMATOCRIT 38.6 % (35.4-49); HEMOGLOBIN 13.2 GM/dL (11.7-16.9); LYMPH % 36.7 % (8-40); MCH 31.7 pg (25.7-33.7); MCHC 34.3 g/dl (32.0-35.9); MEAN CELL VOLUME 92.5 fl (80-96); MEAN PLT VOLUME 9.8 fl (7.5-11.1); MONO % 11.7 % (3.8-10.2); NEUT % 46.3 % (42.8-82.8); PLATELET COUNT 239 K/MM3 (134-434); RBC 4.17 M/mm3 (4.00-5.60); RDW 15.7 % (11.9-15.9); WHITE BLOOD COUNT 5.5 K/mm3 (4.0-10.0)
[2019-02-19 08:07] LABS: ALBUMIN 3.3 g/dl (3.4-5.0); BILIRUBIN,TOTAL 0.6 mg/dL (0.2-1); BLOOD UREA NITROGEN 15.7 mg/dL (7-18); CALCIUM 8.8 mg/dL (8.5-10.1); CREATININE 0.5 mg/dL (0.55-1.3); MAGNESIUM 2.3 mg/dL (1.8-2.4); TOT PROT 7.6 g/dl (6.4-8.2)
[2019-02-19] MEDS ORDERED: PT OWN MED DRAWER 7, Y5N ONE (11:00)
[2019-02-19] MEDS: HEPARIN NA (PORCINE) 5,000 UNITS/ML 1ML VIAL SQ SCH ×2 (11:03→22:31)
[2019-02-19] MEDS: SENNOSIDES 8.8 MG/5 ML BULK BOTTLE GT SCH (11:03)
[2019-02-19] MEDS: POLYETHYLENE GLYCOL 3350 119 GM BTL GT SCH ×2 (11:05→22:32)
[2019-02-19] MEDS: NYSTATIN POWDER 100,000 UNITS/GM - 15 GM TOPICAL POWDER TP SCH ×2 (11:06→22:33)
[2019-02-19] MEDS: SCOPOLAMINE HYDROBROMIDE 1 PATCH PATCH.TD72 TD SCH (11:08)
[2019-02-19] MEDS: SODIUM PHOSPHATE/NA BIPHOS 133 ML ENEMA PR PRN (13:00)
--- NOTE | 2019-02-19 15:16 | PN ---
Physical Exam: SUBJECTIVE: Patient seen and examined, no further chest congestion s/p lasix yesterday. OBJECTIVE: Patient is a 48 year old male from [facility] with a significant past medical history of cerebral palsy, intellectual disability, congenital quadriplegia, epilepsy. He was brought into the ED for abdominal distention and GT malfunction (meds returning). Multiple admission for abdominal distension/ ileus. Patient is currently tolerating his feeds without difficulty. Per GI, patient should get tap water enemas four times per week, with rectal tube decompression twice weekly as well as senna daily. Vital Signs Period Temp Pulse Resp BP Sys/Oropeza Pulse Ox Last 24 Hr 97.3 F-98.0 F 47-59 20-20 106-123/64-85 99 GENERAL: hx of cerebral palsy, awake, alert, non verbal HEAD: Normal with no signs of trauma. EYES: PERRL, extraocular movements intact, sclera anicteric, conjunctiva clear. No ptosis. ENT: Ears normal, nares patent, oropharynx clear without exudates, moist mucous membranes. NECK: Trachea midline, full range of motion, supple. LUNGS: cleared upper lobes bilaterally. HEART: regular rate ABDOMEN: Soft, mildly distended abdomen with + bowel sounds. no pain on palpation of abdomen. EXTREMITIES: no edema. NEUROLOGICAL: non verbal, bed bound PSYCH: Normal mood, normal affect. SKIN: Warm, dry, normal turgor, no rashes or lesions noted Laboratory Results - last 24 hr 02/19/19 02/19/19 07:00 07:00 WBC 5.5 RBC 4.17 Hgb 13.2 Hct 38.6 MCV 92.5 MCH 31.7 MCHC 34.3 RDW 15.7 Plt Count 239 MPV 9.8 Absolute Neuts (auto) 2.6 Neutrophils % 46.3 Lymphocytes % 36.7 Monocytes % 11.7 H Eosinophils % 5.0 H Basophils % 0.3 Nucleated RBC % 0 Sodium 138 Potassium 4.0 Chloride 104 Carbon Dioxide 29 Anion Gap 5 L BUN 15.7 Creatinine 0.5 L Est GFR (CKD-EPI)AfAm 146.45 Est GFR (CKD-EPI)NonAf 126.36 Random Glucose 92 Calcium 8.8 Magnesium 2.3 Total Bilirubin 0.6 AST 38 H ALT 40 Alkaline Phosphatase 153 H Total Protein 7.6 Albumin 3.3 L Active Medications Generic Name Dose Route Start Last Admin Trade Name Freq PRN Reason Stop Dose Admin Acetaminophen 1,000 mg 02/12/19 16:05 02/16/19 12:58 Ofirmev Injection - IVPB 1,000 mg Q6H PRN Administration PAIN LEVEL 6-10 Albuterol/Ipratropium 1 amp 02/12/19 16:00 02/19/19 11:54 Duoneb - NEB 1 amp RQID TARIQ Administration Baclofen 10 mg 02/13/19 14:00 02/19/19 13:23 Lioresal - GT 10 mg TID TARIQ Administration Heparin Sodium (Porcine) 5,000 unit 02/12/19 22:00 02/19/19 11:03 Heparin - SQ 5,000 unit BID TARIQ Administration Magnesium Hydroxide 30 ml 02/13/19 22:00 02/18/19 23:35 Milk Of Magnesia - GT 30 ml HS TARIQ Administration Nystatin 1 applic 02/18/19 13:45 02/19/19 11:06 Nystop Powder - TP 1 applic BID TARIQ Administration Polyethylene Glycol 34 gm 02/12/19 22:00 02/19/19 11:05 Miralax (For Daily Use) - GT 34 gm BID TARIQ Administration Scopolamine HBr 1 patch 02/13/19 12:00 02/19/19 11:08 Transderm-Scop - TD 1 patch Q72H TARIQ Administration Senna 17.6 mg 02/13/19 12:00 02/19/19 11:03 Senna Oral Solution - GT 17.6 mg DAILY TARIQ Administration Sodium Chloride 3 ml 02/12/19 17:38 Normal Saline For Inhalation - IH Q6H PRN Dyspnea Sodium Phosphate 133 ml 02/13/19 17:56 02/15/19 14:27 Fleet Adult Rectal Enema - PA 133 ml ONCE PRN Administration CONSTIPATION ASSESSMENT/PLAN: Problem List - Problems (1) Bradycardia by electrocardiogram Assessment/Plan: monitor with vital signs Code(s): R00.1 - BRADYCARDIA, UNSPECIFIED (2) Abdominal pain Assessment/Plan: not grimacing on abd exam, appears comfortable otherwise. abdominal xray without changes. aggressive bowel regimen restarted feeds and tolerated them so far. GI following, notes reviewed and appreciated Code(s): R10.9 - UNSPECIFIED ABDOMINAL PAIN Qualifiers: Abdominal location: unspecified location Qualified Code(s): R10.9 - Unspecified abdominal pain (3) Severe malnutrition Assessment/Plan: BMI 25 restart feeds cleared by GI. Code(s): E43 - UNSPECIFIED SEVERE PROTEIN-CALORIE MALNUTRITION (4) Dilatation of colon Assessment/Plan: marked colonic dilation avoid narcotics Code(s): K59.39 - OTHER MEGACOLON (5) Cerebral palsy Assessment/Plan: Mehul resident, supportive care. Code(s): G80.9 - CEREBRAL PALSY, UNSPECIFIED (6) Functional quadriplegia Code(s): R53.2 - FUNCTIONAL QUADRIPLEGIA (7) PEG (percutaneous endoscopic gastrostomy) status Assessment/Plan: GI notes reviewed and recommended. restart feeds and monitor. Code(s): Z93.1 - GASTROSTOMY STATUS (8) Tracheostomy in place Assessment/Plan: Trach in place supplementall O2 to maintain SPO2 >92% suction q4 h or prn saline nebs Code(s): Z93.0 - TRACHEOSTOMY STATUS (9) Prophylactic measure Assessment/Plan: fen monitor electrolytes dina 1.2 and titrated up per protocol Code(s): Z29.9 - ENCOUNTER FOR PROPHYLACTIC MEASURES, UNSPECIFIED Visit type - Emergency Visit Emergency Visit: Yes ED Registration Date: 02/12/19 Care time: The patient presented to the Emergency Department on the above date and was hospitalized for further evaluation of their emergent condition. - New Patient This patient is new to me today: No - Critical Care Critical Care patient: No - Discharge Referral Referred to [facility] No
[2019-02-19] MEDS: MAGNESIUM HYDROX 2400MG/30ML ORAL SUSPENSION 30 ML CUP GT SCH (22:32)
[2019-02-20] MEDS: BACLOFEN 10 MG TABLET (FP) GT SCH ×2 (06:19→18:48)
[2019-02-20] MEDS: ALBUTEROL SO4 2.5/IPRATROPIUM 0.5 INH SOL 3 ML VIAL.NEB. NEB SCH ×3 (07:30→15:30)
[2019-02-20 08:23] LABS: BASO % 0.9 % (0-2.0); EOS % 6.6 % (0-4.5); HEMATOCRIT 39.5 % (35.4-49); HEMOGLOBIN 13.3 GM/dL (11.7-16.9); LYMPH % 49.8 % (8-40); MCH 31.4 pg (25.7-33.7); MCHC 33.7 g/dl (32.0-35.9); MEAN CELL VOLUME 93.1 fl (80-96); MONO % 11.6 % (3.8-10.2); NEUT % 31.1 % (42.8-82.8); PLATELET COUNT 242 K/MM3 (134-434); RBC 4.24 M/mm3 (4.00-5.60); RDW 15.5 % (11.9-15.9)
[2019-02-20 08:38] LABS: ALBUMIN 3.4 g/dl (3.4-5.0); BILIRUBIN,TOTAL 0.5 mg/dL (0.2-1); BLOOD UREA NITROGEN 19.7 mg/dL (7-18); CALCIUM 8.9 mg/dL (8.5-10.1); CREATININE 0.5 mg/dL (0.55-1.3); MAGNESIUM 2.7 mg/dL (1.8-2.4); POTASSIUM 4.3 mmol/L (3.5-5.1); TOT PROT 7.8 g/dl (6.4-8.2)
[2019-02-20] MEDS ORDERED: PT OWN MED DRAWER 7, Y5N ONE (09:02)
[2019-02-20] MEDS: SENNOSIDES 8.8 MG/5 ML BULK BOTTLE GT SCH (09:59)
[2019-02-20] MEDS: HEPARIN NA (PORCINE) 5,000 UNITS/ML 1ML VIAL SQ SCH (09:59)
[2019-02-20] MEDS: POLYETHYLENE GLYCOL 3350 119 GM BTL GT SCH (09:59)
[2019-02-20] MEDS: NYSTATIN POWDER 100,000 UNITS/GM - 15 GM TOPICAL POWDER TP SCH (10:00)
--- NOTE | 2019-02-20 13:34 | PN ---
Progress Note (short form) - Note Progress Note: GI follow up Having bm's Tolerating tube feeds NAD Mild distension, nontender, PEG c/d/i CBC, BMP 02/20/19 06:18 02/20/19 06:18 Continue current bowel regimen Continue tube feeds Please call GI back with questions
--- NOTE | 2019-02-20 14:11 | DS ---
Physical Exam: SUBJECTIVE: Patient seen and examined at the bedside. comfortable at rest. tolerating feeds. OBJECTIVE: Patient is a 48 year old male from [facility] with a significant past medical history of cerebral palsy, intellectual disability, congenital quadriplegia, epilepsy. He was brought into the ED for abdominal distention and GT malfunction (meds returning). Multiple admission for abdominal distension/ ileus. Patient is currently tolerating his feeds without difficulty. Per GI, patient should get tap water enemas four times per week, with rectal tube decompression twice weekly as well as senna daily. Spoke to Dr. Sloan who accepts patient back to [facility]. GI recommendations discussed with Dr. Sloan. Vital Signs Period Temp Pulse Resp BP Sys/Oropeza Pulse Ox Last 24 Hr 97.5 F-98.0 F 45-98 18-20 106-124/55-85 98-99 PHYSICAL EXAM GENERAL: hx of cerebral palsy, awake, alert, non verbal HEAD: Normal with no signs of trauma. EYES: PERRL, extraocular movements intact, sclera anicteric, conjunctiva clear. No ptosis. ENT: Ears normal, nares patent, oropharynx clear without exudates, moist mucous membranes. NECK: Trachea midline, full range of motion, supple. LUNGS: cleared upper lobes bilaterally. HEART: regular rate ABDOMEN: Soft, mildly distended abdomen with + bowel sounds. no pain on palpation of abdomen. tolerating feeds. medications given without difficulty. EXTREMITIES: no edema. NEUROLOGICAL: non verbal, bed bound PSYCH: Normal mood, normal affect. SKIN: Warm, dry, normal turgor, no rashes or lesions noted LABS Laboratory Results - last 24 hr 02/20/19 02/20/19 06:18 06:18 WBC 4.0 RBC 4.24 Hgb 13.3 Hct 39.5 MCV 93.1 MCH 31.4 MCHC 33.7 RDW 15.5 Plt Count 242 MPV 10.0 Absolute Neuts (auto) 1.3 L Neutrophils % 31.1 L D Lymphocytes % 49.8 H D Monocytes % 11.6 H Eosinophils % 6.6 H Basophils % 0.9 Nucleated RBC % 0 Sodium 138 Potassium 4.3 Chloride 102 Carbon Dioxide 32 Anion Gap 4 L BUN 19.7 H Creatinine 0.5 L Est GFR (CKD-EPI)AfAm 146.45 Est GFR (CKD-EPI)NonAf 126.36 Random Glucose 75 Calcium 8.9 Magnesium 2.7 H Total Bilirubin 0.5 AST 36 ALT 41 Alkaline Phosphatase 157 H Total Protein 7.8 Albumin 3.4 HOSPITAL COURSE: Date of Admission:02/12/19 Date of Discharge: 02/20/19 Minutes to complete discharge: 45 Discharge Summary Problems reviewed: Yes Reason For Visit: ABDOMINAL DISTENSION Current Active Problems Abdominal pain (Acute) Bradycardia by electrocardiogram (Acute) Cerebral palsy (Acute) Encounter for medical screening examination (Acute) Functional quadriplegia (Acute) PEG (percutaneous endoscopic gastrostomy) status (Acute) Prophylactic measure (Acute) Pseudoobstruction of colon (Acute) Severe flexion contractures of all joints (Acute) Severe malnutrition (Acute) Tracheostomy in place (Acute) Condition: Improved - Instructions Diet, Activity, Other Instructions: Mr Tobar/Facility staff at [facility]: Mr Tobar will be discharged back to [facility] with the following discharge instructions. Continue Senna daily to prevent impaction Cleansing tap water enema daily to prevent future impaction Consider rectal tube for decompression as needed, can be done twice weekly Consider switching feeds to Vital 1.2 with goal rate of 32 with 15 cc water flushes [employer] referral sent, please make appointment for Mr. Tobar for follow up Continue all medications at [facility] Thank you for allowing us to care for you Referrals: Devyn Sloan Jr [Non Staff, Medical] - Lizzette Melendez MD [Staff Physician] - Disposition: HOME - Home Medications Comprehensive Discharge Medication List: Ambulatory Orders Baclofen 10 mg GT TID 01/29/16 Calcium Carbonate/Vitamin D3 [Oystercal-D 500 mg-400 Unit Tb] 2 tab GT HS Cholecalciferol (Vitamin D3) [Vitamin D3] 2,000 unit GT HS 01/29/16 Magnesium Hydrox 2400MG/30Ml [Milk of Magnesia -] 30 ml GT HS 01/29/16 Simethicone 40 mg GT TID 01/29/16 Albuterol 2.5/Ipratropium 0.5 [Duoneb -] 1 amp NEB RQID amp 03/08/18 Mag Carb/Aluminum Hydrox/Algin [Acid Gone Antacid Liquid] 1 tsp GT TID 11/11/18 Lubiprostone [Amitiza] 24 mcg GT BID 11/14/18 Mag Carb/Aluminum Hydrox/Algin [Riginic Suspension] 5 ml GT TID 11/14/18 Sweetwater-3/Dha/Epa/Fish Oil [Fish Oil 1,600 mg/5 ml Liquid] 1,000 mg GT BID Scopolamine [Transderm-Scop] 1.5 mg TD ASDIR 11/14/18 Sennosides [Senna] 17.6 mg GT DAILY 11/14/18 Docusate Sodium [Colace -] 100 mg GT BID 12/01/18 Lubiprostone [Amitiza] 24 mcg GT BID 12/01/18 Miscellaneous Medical Supply [Outpatient Order] 1 each ASDIR #1 misc Polyethylene Glycol 3350 [Miralax 119 gm Btl -] 17 gm PO BID bottle 12/01/18 Nystatin Powder [Nystop Powder -] 1 applic TP BID applic 02/20/19 Sodium Phosphate/Na Biphos [Fleet Adult Rectal Enema -] 133 ml NE ONCE PRN enema 02/20/19 Problem List - Problems (1) Bradycardia by electrocardiogram Code(s): R00.1 - BRADYCARDIA, UNSPECIFIED (2) Abdominal pain Code(s): R10.9 - UNSPECIFIED ABDOMINAL PAIN Qualifiers: Abdominal location: unspecified location Qualified Code(s): R10.9 - Unspecified abdominal pain (3) Severe malnutrition Code(s): E43 - UNSPECIFIED SEVERE PROTEIN-CALORIE MALNUTRITION (4) Dilatation of colon Code(s): K59.39 - OTHER MEGACOLON (5) Cerebral palsy Code(s): G80.9 - CEREBRAL PALSY, UNSPECIFIED (6) Functional quadriplegia Code(s): R53.2 - FUNCTIONAL QUADRIPLEGIA (7) PEG (percutaneous endoscopic gastrostomy) status Code(s): Z93.1 - GASTROSTOMY STATUS (8) Tracheostomy in place Code(s): Z93.0 - TRACHEOSTOMY STATUS (9) Prophylactic measure Code(s): Z29.9 - ENCOUNTER FOR PROPHYLACTIC MEASURES, UNSPECIFIED This patient is new to me today: No Emergency Visit: Yes ED Registration Date: 02/12/19 Care time: The patient presented to the Emergency Department on the above date and was hospitalized for further evaluation of their emergent condition. Critical Care patient: No - Discharge Referral Referred to [facility] No
[2019-02-20 15:42] VITALS: BP 119/73; PULSE 56; TEMP 97.6
== END 2019-02-20 16:30 | disposition home or self-care (01) | DRG 393 ==
LOC: JER 08:42 → JERBED 12:51 → J5S 15:15
PROVIDERS: ADMIT Internal Medicine; ATTEND Nurse Practitioner Family
DX: K59.39 Other megacolon (principal); R53.2 Functional quadriplegia; E43 Unspecified severe protein-calorie malnutrition; F73 Profound intellectual disabilities; Q67.5 Congenital deformity of spine; G40.802 Other epilepsy, not intractable, without status epilepticus; K59.09 Other constipation; K59.8 Other specified functional intestinal disorders; G80.8 Other cerebral palsy; R00.1 Bradycardia, unspecified; H47.20 Unspecified optic atrophy; Z74.01 Bed confinement status; Z99.3 Dependence on wheelchair; Z99.81 Dependence on supplemental oxygen; Z93.0 Tracheostomy status; Z93.1 Gastrostomy status
CPT/HCPCS: 36415; 71045-TC-FY; 74018-TC-FY; 74177-TC; 80048; 80053; 81003; 83690; 83735; 84100; 85025; 85610; 85730; 87086; 93005; 93010; 94640; 97161-GP; 99284-25; J0131; J0475; J1644

== ENCOUNTER 2019-12-31 10:38 | Inpatient (IN) | payer OTHER ==
--- NOTE | 2019-12-31 11:35 | PDOC ---
History of Present Illness - General Chief Complaint: Shortness of Breath Stated Complaint: DIFFICULTY BREATHING Time Seen by Provider: 12/31/19 10:49 - History of Present Illness Initial Comments: 12/31/19 11:11 49M [facility] cerebral palsy, intellectual disability (non-verbal), congenital quadriplegia, epilepsy, G-tub and tracheostomy, BIBEMS because he was hypoxic to 86 at the [place] with a RR of 26. He improved to 94% on 10L, but no further improvement with chest PT suctioning, and nebulizers. PMH/PSH/Meds/Allergies: as per chart ROS: unable to obtain PE: general: GENERAL: non-verbal (baseline), no acute distress HEAD: No signs of trauma, normocephalic, atraumatic NECK: lymphadenopathy, JVD, or masses, tracheostomy LUNGS: No distress, coarse "junky" breath sounds in all lung thrasher HEART: Regular rate and rhythm, normal S1 and S2, no murmurs, rubs or gallops ABDOMEN: Soft, nontender, normoactive bowel sounds. No guarding, no rebound. No masses EXTREMITIES : contracted NEUROLOGICAL: non verbal, eyes not tracking SKIN: Warm, Dry Vital Signs Temp Pulse Resp BP Pulse Ox 95.8 F L 84 16 120/82 96 12/31/19 10:40 12/31/19 10:40 12/31/19 10:40 12/31/19 10:40 12/31/19 10:40 MDM: 49M [facility] cerebral palsy, intellectual disability (non-verbal), congenital quadriplegia, epilepsy, G-tub and tracheostomy, BIBEMS because he was hypoxic to 86 at the [place] with a RR of 26. He improved to 94% on 10L, but no further improvement with chest PT suctioning, and nebulizers. In the ED, he was 96% on 10L, but desaturated to 90% on room air. Currently 96% on 2L. Lungs had coarse "junky" breath sounds throughout, which improved with suctioning, but are still present. Patient is hypoxic and hypothermic (95.8). DDx includes pneumonia, UTI, abdominal infection. -EKG -CXR -Sepsis labs: CBC, CMP, coags, trops, lactic acid, UA/UC, blood cultures -Treat with cefepime, azithro, vanc EKG: CXR: possible right retrocardiac consolidation when compared to prior CXR Labs: WBC 17.0 with 91.8% neutrophils, UA negative. Laboratory Results - last 24 hr 12/31/19 12/31/19 12/31/19 11:10 11:10 11:10 WBC 17.0 H RBC 3.96 L Hgb 12.7 Hct 36.6 MCV 92.4 MCH 32.0 MCHC 34.6 RDW 17.6 H Plt Count 210 MPV 8.1 D Absolute Neuts (auto) 15.6 H Neutrophils % 91.8 H D Neutrophils % (Manual) 78.0 Band Neutrophils % 9.0 Lymphocytes % 3.3 L D Lymphocytes % (Manual) 6.0 L Monocytes % 4.4 Monocytes % (Manual) 5 Eosinophils % 0.5 D Eosinophils % (Manual) 0.0 Basophils % 0.0 Basophils % (Manual) 0.0 Myelocytes % (Man) 0 Promyelocytes % (Man) 0 Blast Cells % (Manual) 0 Nucleated RBC % 0 Metamyelocytes 0 Hypochromia 0 Platelet Estimate Normal Polychromasia 0 Poikilocytosis 0 Anisocytosis 0 Microcytosis 0 Macrocytosis 0 PT with INR 11.70 INR 0.99 PTT (Actin FS) 38.3 H VBG pH POC VBG pCO2 POC VBG pO2 VBG HCO3 VBG O2 Sat (Carmina) VBG Base Excess Sodium Potassium Chloride Carbon Dioxide Anion Gap BUN Creatinine Est GFR (CKD-EPI)AfAm Est GFR (CKD-EPI)NonAf Random Glucose Lactic Acid Calcium Total Bilirubin AST ALT Alkaline Phosphatase Troponin I < 0.02 Total Protein Albumin Urine Color Urine Appearance Urine pH Ur Specific [place] Urine Protein Urine Glucose (UA) Urine Ketones Urine Blood Urine Nitrite Urine Bilirubin Urine Urobilinogen Ur Leukocyte Esterase 12/31/19 12/31/19 12/31/19 11:10 11:10 11:10 WBC RBC Hgb Hct MCV MCH MCHC RDW Plt Count MPV Absolute Neuts (auto) Neutrophils % Neutrophils % (Manual) Band Neutrophils % Lymphocytes % Lymphocytes % (Manual) Monocytes % Monocytes % (Manual) Eosinophils % Eosinophils % (Manual) Basophils % Basophils % (Manual) Myelocytes % (Man) Promyelocytes % (Man) Blast Cells % (Manual) Nucleated RBC % Metamyelocytes Hypochromia Platelet Estimate Polychromasia Poikilocytosis Anisocytosis Microcytosis Macrocytosis PT with INR INR PTT (Actin FS) VBG pH POC VBG pCO2 POC VBG pO2 VBG HCO3 VBG O2 Sat (Carmina) VBG Base Excess Sodium 138 Potassium 3.4 L Chloride 97 L Carbon Dioxide 37 H Anion Gap 4 L BUN 26.7 H Creatinine 0.4 L Est GFR (CKD-EPI)AfAm 159.39 Est GFR (CKD-EPI)NonAf 137.52 Random Glucose 94 Lactic Acid 1.1 Calcium 9.3 Total Bilirubin 0.5 AST 50 H ALT 64 H Alkaline Phosphatase 181 H Troponin I Total Protein 6.6 Albumin 2.6 L Urine Color Yellow Urine Appearance Clear Urine pH 6.5 Ur Specific [place] 1.013 Urine Protein Negative Urine Glucose (UA) Negative Urine Ketones Negative Urine Blood Negative Urine Nitrite Negative Urine Bilirubin Negative Urine Urobilinogen 0.2 Ur Leukocyte Esterase Negative 12/31/19 11:10 WBC RBC Hgb Hct MCV MCH MCHC RDW Plt Count MPV Absolute Neuts (auto) Neutrophils % Neutrophils % (Manual) Band Neutrophils % Lymphocytes % Lymphocytes % (Manual) Monocytes % Monocytes % (Manual) Eosinophils % Eosinophils % (Manual) Basophils % Basophils % (Manual) Myelocytes % (Man) Promyelocytes % (Man) Blast Cells % (Manual) Nucleated RBC % Metamyelocytes Hypochromia Platelet Estimate Polychromasia Poikilocytosis Anisocytosis Microcytosis Macrocytosis PT with INR INR PTT (Actin FS) VBG pH 7.434 H POC VBG pCO2 52.1 H POC VBG pO2 65.2 H VBG HCO3 34.1 H VBG O2 Sat (Carmina) 93.1 H VBG Base Excess 8.0 H Sodium Potassium Chloride Carbon Dioxide Anion Gap BUN Creatinine Est GFR (CKD-EPI)AfAm Est GFR (CKD-EPI)NonAf Random Glucose Lactic Acid Calcium Total Bilirubin AST ALT Alkaline Phosphatase Troponin I Total Protein Albumin Urine Color Urine Appearance Urine pH Ur Specific [place] Urine Protein Urine Glucose (UA) Urine Ketones Urine Blood Urine Nitrite Urine Bilirubin Urine Urobilinogen Ur Leukocyte Esterase Will admit for sepsis and respiratory failure, likely due to pneumonia 12/31/19 12:[address] Weaver who accepted the patient for admission Past History - Medical History Allergies/Adverse Reactions: Allergies Allergy/AdvReac Type Severity Reaction Status Date / Time Sulfa (Sulfonamide AdvReac Verified 12/31/19 10:52 Antibiotics) Home Medications: Ambulatory Orders Baclofen 10 mg GT TID 01/29/16 Cholecalciferol (Vitamin D3) [Vitamin D3] 2,000 unit GT HS 01/29/16 Simethicone 40 mg GT TID 01/29/16 Albuterol 2.5/Ipratropium 0.5 [Duoneb -] 1 amp NEB RQID amp 03/08/18 Mag Carb/Aluminum Hydrox/Algin [Riginic Suspension] 5 ml GT TID 11/14/18 [place]-3/Dha/Epa/Fish Oil [Fish Oil 1,600 mg/5 ml Liquid] 1,000 mg GT BID 11/14/18 Scopolamine [Transderm-Scop] 1 mg TD ASDIR 11/14/18 Sennosides [Senna] 17.6 mg GT DAILY 11/14/18 Docusate Sodium [Colace -] 100 mg GT BID 12/01/18 Lubiprostone [Amitiza] 24 mcg GT BID 12/01/18 Polyethylene Glycol 3350 [Miralax 119 gm Btl -] 17 gm PO BID bottle 12/01/18 COPD: Yes (tracheostomy ) Disorders: Yes (gastrostomy) Psychiatric Problems: Yes (mental retardation) Seizures: Yes (EPILEPSY, seizure d/o) - Surgical History Abdominal Surgery: Yes (gastrostomy) Orthopedic Surgery: Yes (spinal fusion/hx osteoperosis left femur fx) - Immunization History Immunization Up to Date: Yes - Psycho-Social/Smoking History Smoking History: Current every day smoker Have you smoked in the past 12 months: No Information on smoking cessation initiated: No - Substance Abuse Hx (Audit-C & DAST Scrn) How often the patient has a drink containing alcohol: Never Score: In Men: 4 or > Positive; In Women: 3 or > Positive: 0 Screen Result (Pos requires Nsg. Audit-10AR): Negative In the last yr the pt used illegal drug/Rx for NonMed reason: No Score: Yes response is considered Positive: 0 Screen Result (Positive result requires Nsg. DAST-10): Negative *Physical Exam - Vital Signs Last Vital Signs Temp Pulse Resp BP Pulse Ox 95.8 F L 84 16 120/82 96 12/31/19 10:40 12/31/19 10:40 12/31/19 10:40 12/31/19 10:40 12/31/19 10:40 ED Treatment Course - LABORATORY CBC & Chemistry Diagram: 12/31/19 11:10 12/31/19 11:10 - RADIOLOGY Radiology Studies Ordered: Category Date Time Status CHEST X-RAY PORTABLE* [RAD] Stat Radiology 12/31/19 10:50 Ordered Discharge - Discharge Information Problems reviewed: Yes Clinical Impression/Diagnosis: Sepsis Qualifiers: Sepsis type: sepsis due to unspecified organism Sepsis acute organ dysfunction status: with acute organ dysfunction Severe sepsis acute organ dysfunction type: acute respiratory failure Acute respiratory failure type: with hypoxia Severe sepsis shock status: without septic shock Qualified Code(s): A41.9 - Sepsis, unspecified organism - Follow up/Referral - Patient Discharge Instructions - Post Discharge Activity
[2019-12-31 11:37] LABS: EOS % 0.5 % (0-4.5); HEMATOCRIT 36.6 % (35.4-49); HEMOGLOBIN 12.7 GM/dL (11.7-16.9); LYMPH % 3.3 % (8-40); MCHC 34.6 g/dl (32.0-35.9); MEAN CELL VOLUME 92.4 fl (80-96); MEAN PLT VOLUME 8.1 fl (7.5-11.1); MONO % 4.4 % (3.8-10.2); NEUT % 91.8 % (42.8-82.8); PLATELET COUNT 210 K/MM3 (134-434); RBC 3.96 M/mm3 (4.00-5.60); RDW 17.6 % (11.9-15.9)
[2019-12-31] MEDS ORDERED: VANCOMYCIN 1 GM in D5W (PRE-DOCKED) 1,000 MG/250 ML IVPB ONE (11:41)
[2019-12-31] MEDS ORDERED: AZITHROMYCIN IVPB 500 MG in DEXTROSE 5%-WATER - 250 ML IVPB ONE (11:41)
[2019-12-31] MEDS ORDERED: CEFEPIME HCL/D5W 2 GM/50 ML BAG IVPB ONE (11:41)
[2019-12-31 11:46] LABS: INR 0.99 (0.83-1.09); PROTHROMBIN TIME (PATIENT) 11.7 SEC (9.7-13.0)
[2019-12-31 11:48] LABS: ACTIVATED PTT 38.3 SECONDS (25.2-36.5)
[2019-12-31 11:51] LABS: PH,URINE 6.5 (5.0-8.0); URINE APPEARANCE CLEAR; URINE BILIRUBIN NEGATIVE (NEGATIVE); URINE COLOR YELLOW; URINE GLUCOSE (UA) NEGATIVE (NEGATIVE); URINE KETONE NEGATIVE (NEGATIVE); URINE LEUK ESTERASE NEGATIVE (NEGATIVE); URINE NITRITE NEGATIVE (NEGATIVE); URINE PROTEIN NEGATIVE (NEGATIVE); URINE UROBILINOGEN 0.2 mg/dL (0.2-1.0)
[2019-12-31 11:54] LABS: VENOUS O2 SATURATION 93.1 % (70-80); VENOUS PCO2 52.1 mmHg (38-52); VENOUS PH 7.434 (7.310-7.410)
[2019-12-31 12:01] LABS: ANISOCYTOSIS 0; MACROCYTOSIS 0; PLATELET ESTIMATE NORMAL
[2019-12-31 12:04] LABS: ALBUMIN 2.6 g/dl (3.4-5.0); BILIRUBIN,TOTAL 0.5 mg/dL (0.2-1); BLOOD UREA NITROGEN 26.7 mg/dL (7-18); CALCIUM 9.3 mg/dL (8.5-10.1); CREATININE 0.4 mg/dL (0.55-1.3); POTASSIUM 3.4 mmol/L (3.5-5.1); TOT PROT 6.6 g/dl (6.4-8.2)
[2019-12-31] MEDS ORDERED: VANCOMYCIN 1 GRAM (PRE-DOCKED) 1,000 MG/250 ML BAG IVPB ONE (12:33)
[2019-12-31] MEDS ORDERED: CEFEPIME 2 GM/100 ML BAG IVPB ONE ×2 (12:34→18:04)
[2019-12-31] MEDS ORDERED: AZITHROMYCIN IVPB 500 MG/250 ML BAG IVPB ONE (12:34)
--- NOTE | 2019-12-31 12:41 | HP ---
CHIEF COMPLAINT: Hypoxia PCP: Dr. Sloan HISTORY OF PRESENT ILLNESS: The patient is [id number] male with a past medical history of cerebral palsy, intellectual disability (non-verbal), congenital quadriplegia, epilepsy, G-tub and tracheostomy who was brought in by EMS from [facility] due to hypoxia and noisy breathing. Per record provided by [facility], patient was found to be hypoxic was found to be hypoxic to 86%. The patient was suctioned and given chest PT and was found to only improve to 94% on 10 liters of supplemental oxygen. In the emergency department, the patient was found to be saturating 92% on room air which improved to 96% on 2 L supplemental oxygen, nebs and suction. Patient was also found to have an elevated WBC count and to be hypothermic and hypokalemic. CXR shows possible consolidHe was treated with cefepime, azithromycin and vancomycin in the ED. On my evaluation, patient appears comfortable on supplemental oxygen. Patient nonverbal at baseline. Patient's capsule filler at bedside has no additional information other than what was provided from [facility]. Recent Travel: none PAST MEDICAL HISTORY: see HPI PAST SURGICAL HISTORY: see HPI Social History: denies Allergies Sulfa (Sulfonamide Antibiotics) Adverse Reaction (Verified 12/31/19 10:52) HOME MEDICATIONS: Home Medications Medication Instructions Recorded Baclofen 10 mg GT TID 01/29/16 Calcium Carbonate/Vitamin D3 2 tab GT HS 01/29/16 [Oystercal-D 500 mg-400 Unit Tb] Cholecalciferol (Vitamin D3) 2,000 unit GT HS 01/29/16 [Vitamin D3] Magnesium Hydrox 2400MG/30Ml [Milk 30 ml GT HS 01/29/16 of Magnesia -] Simethicone 40 mg GT TID 01/29/16 Albuterol 2.5/Ipratropium 0.5 1 amp NEB RQID amp 03/08/18 [Duoneb -] Mag Carb/Aluminum Hydrox/Algin 1 tsp GT TID 11/11/18 [Acid Gone Antacid Liquid] Lubiprostone [Amitiza] 24 mcg GT BID 11/14/18 Mag Carb/Aluminum Hydrox/Algin 5 ml GT TID 11/14/18 [Riginic Suspension] [place]-3/Dha/Epa/Fish Oil [Fish Oil 1,000 mg GT BID 11/14/18 1,600 mg/5 ml Liquid] Scopolamine [Transderm-Scop] 1.5 mg TD ASDIR 11/14/18 Sennosides [Senna] 17.6 mg GT DAILY 11/14/18 Docusate Sodium [Colace -] 100 mg GT BID 12/01/18 Lubiprostone [Amitiza] 24 mcg GT BID 12/01/18 Miscellaneous Medical Supply 1 each ASDIR #1 mis 12/01/18 [Outpatient Order] Polyethylene Glycol 3350 [Miralax 17 gm PO BID bottle 12/01/18 119 gm Btl -] Nystatin Powder [Nystop Powder -] 1 applic TP BID applic 02/20/19 Sodium Phosphate/Na Biphos [Fleet 133 ml AK ONCE PRN enema 02/20/19 Adult Rectal Enema -] REVIEW OF SYSTEMS unable to obtain PHYSICAL EXAMINATION Vital Signs - 24 hr 12/31/19 12/31/19 12/31/19 10:40 11:10 11:39 Temperature 95.8 F L 95.6 F L Pulse Rate 84 Respiratory 16 Rate Blood Pressure 120/82 O2 Sat by Pulse 96 97 Oximetry (%) 12/31/19 11:52 Temperature Pulse Rate Respiratory Rate Blood Pressure O2 Sat by Pulse 94 L Oximetry (%) GENERAL: Awake, alert, non verbal and not interactive at baseline. Patient reacts to touch. HEAD: Normal with no signs of trauma.. NECK: Normal range of motion, supple without lymphadenopathy, JVD, or masses. LUNGS: Breath sounds equal, coarse rales heard throughout. No accessory muscle use. Noisy breathing heard without stethoscope. HEART: Regular rate and rhythm, normal S1 and S2 without murmur, rub or gallop. ABDOMEN: Soft, nontender, not distended, normoactive bowel sounds, no guarding, no rebound, no masses. No hepatomegaly or splenomegaly. LOWER EXTREMITIES: 2+ pulses, warm, well-perfused. No calf tenderness. No peripheral edema. NEUROLOGICAL: patient moves all 4 limbs spontaneously. exam limited due to patient's clinical status. Laboratory Results - last 24 hr 12/31/19 12/31/19 12/31/19 11:10 11:10 11:10 WBC 17.0 H RBC 3.96 L Hgb 12.7 Hct 36.6 MCV 92.4 MCH 32.0 MCHC 34.6 RDW 17.6 H Plt Count 210 MPV 8.1 D Absolute Neuts (auto) 15.6 H Neutrophils % 91.8 H D Neutrophils % (Manual) 78.0 Band Neutrophils % 9.0 Lymphocytes % 3.3 L D Lymphocytes % (Manual) 6.0 L Monocytes % 4.4 Monocytes % (Manual) 5 Eosinophils % 0.5 D Eosinophils % (Manual) 0.0 Basophils % 0.0 Basophils % (Manual) 0.0 Myelocytes % (Man) 0 Promyelocytes % (Man) 0 Blast Cells % (Manual) 0 Nucleated RBC % 0 Metamyelocytes 0 Hypochromia 0 Platelet Estimate Normal Polychromasia 0 Poikilocytosis 0 Anisocytosis 0 Microcytosis 0 Macrocytosis 0 PT with INR 11.70 INR 0.99 PTT (Actin FS) 38.3 H VBG pH POC VBG pCO2 POC VBG pO2 VBG HCO3 VBG O2 Sat (Carmina) VBG Base Excess Sodium Potassium Chloride Carbon Dioxide Anion Gap BUN Creatinine Est GFR (CKD-EPI)AfAm Est GFR (CKD-EPI)NonAf Random Glucose Lactic Acid Calcium Total Bilirubin AST ALT Alkaline Phosphatase Troponin I < 0.02 Total Protein Albumin Urine Color Urine Appearance Urine pH Ur Specific [place] Urine Protein Urine Glucose (UA) Urine Ketones Urine Blood Urine Nitrite Urine Bilirubin Urine Urobilinogen Ur Leukocyte Esterase 12/31/19 12/31/19 12/31/19 11:10 11:10 11:10 WBC RBC Hgb Hct MCV MCH MCHC RDW Plt Count MPV Absolute Neuts (auto) Neutrophils % Neutrophils % (Manual) Band Neutrophils % Lymphocytes % Lymphocytes % (Manual) Monocytes % Monocytes % (Manual) Eosinophils % Eosinophils % (Manual) Basophils % Basophils % (Manual) Myelocytes % (Man) Promyelocytes % (Man) Blast Cells % (Manual) Nucleated RBC % Metamyelocytes Hypochromia Platelet Estimate Polychromasia Poikilocytosis Anisocytosis Microcytosis Macrocytosis PT with INR INR PTT (Actin FS) VBG pH POC VBG pCO2 POC VBG pO2 VBG HCO3 VBG O2 Sat (Carmina) VBG Base Excess Sodium 138 Potassium 3.4 L Chloride 97 L Carbon Dioxide 37 H Anion Gap 4 L BUN 26.7 H Creatinine 0.4 L Est GFR (CKD-EPI)AfAm 159.39 Est GFR (CKD-EPI)NonAf 137.52 Random Glucose 94 Lactic Acid 1.1 Calcium 9.3 Total Bilirubin 0.5 AST 50 H ALT 64 H Alkaline Phosphatase 181 H Troponin I Total Protein 6.6 Albumin 2.6 L Urine Color Yellow Urine Appearance Clear Urine pH 6.5 Ur Specific [place] 1.013 Urine Protein Negative Urine Glucose (UA) Negative Urine Ketones Negative Urine Blood Negative Urine Nitrite Negative Urine Bilirubin Negative Urine Urobilinogen 0.2 Ur Leukocyte Esterase Negative 12/31/19 11:10 WBC RBC Hgb Hct MCV MCH MCHC RDW Plt Count MPV Absolute Neuts (auto) Neutrophils % Neutrophils % (Manual) Band Neutrophils % Lymphocytes % Lymphocytes % (Manual) Monocytes % Monocytes % (Manual) Eosinophils % Eosinophils % (Manual) Basophils % Basophils % (Manual) Myelocytes % (Man) Promyelocytes % (Man) Blast Cells % (Manual) Nucleated RBC % Metamyelocytes Hypochromia Platelet Estimate Polychromasia Poikilocytosis Anisocytosis Microcytosis Macrocytosis PT with INR INR PTT (Actin FS) VBG pH 7.434 H POC VBG pCO2 52.1 H POC VBG pO2 65.2 H VBG HCO3 34.1 H VBG O2 Sat (Carmina) 93.1 H VBG Base Excess 8.0 H Sodium Potassium Chloride Carbon Dioxide Anion Gap BUN Creatinine Est GFR (CKD-EPI)AfAm Est GFR (CKD-EPI)NonAf Random Glucose Lactic Acid Calcium Total Bilirubin AST ALT Alkaline Phosphatase Troponin I Total Protein Albumin Urine Color Urine Appearance Urine pH Ur Specific [place] Urine Protein Urine Glucose (UA) Urine Ketones Urine Blood Urine Nitrite Urine Bilirubin Urine Urobilinogen Ur Leukocyte Esterase ASSESSMENT/PLAN: he patient is [id number] male with a past medical history of cerebral palsy, intellectual disability (non-verbal), congenital quadriplegia, epilepsy, G-tub and tracheostomy who was brought in by EMS from [facility] due to hypoxia and noisy breathing. Patient found to be hypoxic and hypothermic with an elevated WBC count. #hypoxia likely 2/2 pneumonia; aspiration vs CAP -Last sputum cx showed klebsiella resistant to zosyn -h/o pseudomonas in the sputum -will order sputum culture, urine for pna antigens. -saw Dr. Uriostegui in the past for ID; Will reconsult for further abx guidance. -s/p Cefepime, azithro and vanc in the ED. -agree with Cefepime and azithro for gram negative and atypical pna coverage, will continue -low suspicion for MRSA pneumonia, will hold off of vancomycin for now. -IV fluids -telemetry for SPO2 monitoring. #epilepsy -resume home meds #Prophy -lovenox 40mg SQ daily #dispo -admit inpatient tele Family Medical History Family History: Unable to Obtain Visit type - Emergency Visit Emergency Visit: Yes ED Registration Date: 12/31/19 Care time: The patient presented to the Emergency Department on the above date and was hospitalized for further evaluation of their emergent condition. - New Patient This patient is new to me today: Yes Date on this admission: 12/31/19 - Critical Care Critical Care patient: No
--- NOTE | 2019-12-31 12:43 | PDOC ---
Documentation entered by Elaina Yates SCRIBE, acting as scribe for Jakub Chen MD. Jakub Chen MD: This documentation has been prepared by the scribe, Elaina Yates SCRIBE, under my direction and personally reviewed by me in its entirety. I confirm that the documentation accurately reflects all work, treatment, procedures, and medical decision making performed by me. Attending Attestation - Resident Resident Name: Ancelmo George - ED Attending Attestation I have performed the following: I have examined & evaluated the patient, The case was reviewed & discussed with the resident, I agree w/resident's findings & plan, Exceptions are as noted - HPI HPI: 12/31/19 11:40 Patient is a 49 year old male with a significant past medical history of cerebral palsy, intellectual disability (non-verbal), congenital quadriplegia, epilepsy, G-tub and tracheostomy, who presents to the ED, [facility], with hypoxia since earlier today. Allergies: sulfonamide antibiotics HPI is limited due to the fact that the patient is non-verbal. - Physicial Exam PE: 12/31/19 11:44 Vitals: Triage vital signs reviewed General Appearance: No acute distress, well nourished, well developed Head: Atraumatic Cardiac: Regular rate and rhythm, Lungs: Coarse breath sounds bilaterally Abdomen: Soft, nondistended, normal bowel sounds, nontender to palpation Extremities: Full range of motion to all extremities, no cyanosis, clubbing, or edema Skin: Warm and dry, no rashes or lesions, no rash, no petechiae Neuro: Contracted - Medical Decision Making 12/31/19 15:38 Patient is a 49 year old male with a significant past medical history of cerebral palsy, intellectual disability (non-verbal), congenital quadriplegia, epilepsy, G-tub and tracheostomy, who presents to the ED, [facility], with hypoxia since earlier today. Allergies: sulfonamide antibiotics HPI is limited due to the fact that the patient is non-verbal. Patient presented with hypoxia requiring supplemental oxygen coarse breath sounds on examination clinical examination is concerning for aspiration pneumonia patient covered with broad-spectrum antibiotics trach collar and for supplemental oxygenation support Chest x-ray with poor inspiratory effort possibly slightly distended abdomen given that patient is poor historian will CT chest abdomen pelvis to further delineate other etiologies of hypothermia tachypnea Discharge - Discharge Information Problems reviewed: Yes Clinical Impression/Diagnosis: Sepsis Qualifiers: Sepsis type: sepsis due to unspecified organism Sepsis acute organ dysfunction status: with acute organ dysfunction Severe sepsis acute organ dysfunction type: acute respiratory failure Acute respiratory failure type: with hypoxia Severe sepsis shock status: without septic shock Qualified Code(s): A41.9 - Sepsis, unspecified organism Condition: Improved - Follow up/Referral - Patient Discharge Instructions - Post Discharge Activity
[2019-12-31] MEDS ORDERED: SODIUM CHLORIDE 0.9%/KCL 20 MEQ/1,000 ML INFUS.BAG IV SCH (14:30)
[2019-12-31] MEDS ORDERED: SCOPOLAMINE HYDROBROMIDE 1 PATCH PATCH.TD72 TD SCH (14:30)
[2019-12-31] MEDS ORDERED: POTASSIUM CHLORIDE ORAL LIQUID 20 MEQ/15 ML GT ONE (15:00)
[2019-12-31] MEDS ORDERED: POTASSIUM CHLORIDE ORAL LIQUID 20 MEQ/15 ML ONE (15:02)
--- NOTE | 2019-12-31 15:27 | CON.ID ---
Consult - History of Present Illness History of Present Illness: 49 y.o. male with PMH of Cerebral palsy, congenitial quadriplegia, seizure d.o., hx of respiratory failure s/p trach/GT sent from [place] for respiratory distress and hypoxia. Reported to have O2 sat of 86% prior to transfer to ER. Pt not a source of history himself. O2 sat improved to 94% on 10L NC after sat of 90% on RA. Found to have temp of 95.8F, with wbc 17.5K and CXR with possible Rt sided infiltrate. Pt seen and examined in the ER. He is alert, nonverbal at baseline, without distress. 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 No: Asthma, Bronchitis, Cancer, COPD, Pulmonary Embolus, Pulmonary Fibrosis, Sleep Apnea Gastrointestinal: Yes: Constipation Musculoskeletal: Yes: Paraplegia, Other (SCOLIOSIS) Additional Medical History: CP/MICROCEPHALY - Alcohol/Substance Use Hx Alcohol Use: No History of Substance Use: reports: None - Smoking History Smoking history: Current every day smoker Have you smoked in the past 12 months: No - Social History Usual Living Arrangement: Other (at [facility]) ADL: Support Services History of Recent Travel: No Home Medications - Allergies Allergies/Adverse Reactions: Allergies Allergy/AdvReac Type Severity Reaction Status Date / Time Sulfa (Sulfonamide AdvReac Verified 12/31/19 10:52 Antibiotics) - Home Medications Home Medications: Ambulatory Orders Baclofen 10 mg GT TID 01/29/16 Cholecalciferol (Vitamin D3) [Vitamin D3] 2,000 unit GT HS 01/29/16 Simethicone 40 mg GT TID 01/29/16 Albuterol 2.5/Ipratropium 0.5 [Duoneb -] 1 amp NEB RQID amp 03/08/18 Mag Carb/Aluminum Hydrox/Algin [Riginic Suspension] 5 ml GT TID 11/14/18 [place]-3/Dha/Epa/Fish Oil [Fish Oil 1,600 mg/5 ml Liquid] 1,000 mg GT BID 9 Scopolamine [Transderm-Scop] 1 mg TD ASDIR 11/14/18 Sennosides [Senna] 17.6 mg GT DAILY 11/14/18 Docusate Sodium [Colace -] 100 mg GT BID 12/01/18 Lubiprostone [Amitiza] 24 mcg GT BID 12/01/18 Polyethylene Glycol 3350 [Miralax 119 gm Btl -] 17 gm PO BID bottle 12/01/18 Review of Systems Findings/Remarks: Pt nonverbal, not a source of history. Hx taken from medical record. - Review of Systems Constitutional: reports: No Symptoms Eyes: reports: No Symptoms HENT: reports: No Symptoms Neck: reports: No Symptoms Cardiovascular: reports: No Symptoms Respiratory: reports: SOB Gastrointestinal: reports: No Symptoms Genitourinary: reports: No Symptoms Breasts: reports: No Symptoms Reported Musculoskeletal: reports: No Symptoms Integumentary: reports: No Symptoms Neurological: reports: No Symptoms Endocrine: reports: No Symptoms Hematology/Lymphatic: reports: No Symptoms Psychiatric: reports: No Symptoms Physical Exam Vital Signs: Vital Signs Temperature 95.6 F L 12/31/19 11:39 Pulse Rate 92 H 12/31/19 13:00 Respiratory Rate 26 H 12/31/19 13:00 Blood Pressure 118/74 12/31/19 13:00 O2 Sat by Pulse Oximetry (%) 97 12/31/19 13:00 Constitutional: Yes: No Distress, Calm Eyes: Yes: Conjunctiva Clear, EOM Intact HENT: Yes: Atraumatic Neck: Yes: Supple, Other (trach collar) Cardiovascular: Yes: Regular Rate and Rhythm Respiratory: Yes: Rhonchi (b/l), Wheezes Gastrointestinal: Yes: Normal Bowel Sounds, Soft, Other (GT site clean) Renal/: Yes: WNL Extremities: Yes: Other (contracted, quadriplegic) Edema: No Peripheral Pulses WNL: Yes Neurological: Yes: Alert, Other (nonverbal) Psychiatric: Yes: Alert Labs: CBC, BMP 12/31/19 11:10 12/31/19 11:10 Laboratory Tests 12/31/19 12/31/19 12/31/19 11:10 11:10 11:10 WBC 17.0 H RBC 3.96 L Hgb 12.7 Hct 36.6 MCV 92.4 MCH 32.0 MCHC 34.6 RDW 17.6 H Plt Count 210 MPV 8.1 D Absolute Neuts (auto) 15.6 H Neutrophils % 91.8 H D Neutrophils % (Manual) 78.0 Band Neutrophils % 9.0 Lymphocytes % 3.3 L D Lymphocytes % (Manual) 6.0 L Monocytes % 4.4 Monocytes % (Manual) 5 Eosinophils % 0.5 D Eosinophils % (Manual) 0.0 Basophils % 0.0 Basophils % (Manual) 0.0 Myelocytes % (Man) 0 Promyelocytes % (Man) 0 Blast Cells % (Manual) 0 Nucleated RBC % 0 Metamyelocytes 0 Hypochromia 0 Platelet Estimate Normal Polychromasia 0 Poikilocytosis 0 Anisocytosis 0 Microcytosis 0 Macrocytosis 0 PT with INR 11.70 INR 0.99 PTT (Actin FS) 38.3 H VBG pH POC VBG pCO2 POC VBG pO2 VBG HCO3 VBG O2 Sat (Carmina) VBG Base Excess Sodium Potassium Chloride Carbon Dioxide Anion Gap BUN Creatinine Est GFR (CKD-EPI)AfAm Est GFR (CKD-EPI)NonAf Random Glucose Lactic Acid Calcium Total Bilirubin AST ALT Alkaline Phosphatase Troponin I < 0.02 Total Protein Albumin Urine Color Urine Appearance Urine pH Ur Specific Gordon Urine Protein Urine Glucose (UA) Urine Ketones Urine Blood Urine Nitrite Urine Bilirubin Urine Urobilinogen Ur Leukocyte Esterase 12/31/19 12/31/19 12/31/19 11:10 11:10 11:10 WBC RBC Hgb Hct MCV MCH MCHC RDW Plt Count MPV Absolute Neuts (auto) Neutrophils % Neutrophils % (Manual) Band Neutrophils % Lymphocytes % Lymphocytes % (Manual) Monocytes % Monocytes % (Manual) Eosinophils % Eosinophils % (Manual) Basophils % Basophils % (Manual) Myelocytes % (Man) Promyelocytes % (Man) Blast Cells % (Manual) Nucleated RBC % Metamyelocytes Hypochromia Platelet Estimate Polychromasia Poikilocytosis Anisocytosis Microcytosis Macrocytosis PT with INR INR PTT (Actin FS) VBG pH POC VBG pCO2 POC VBG pO2 VBG HCO3 VBG O2 Sat (Carmina) VBG Base Excess Sodium 138 Potassium 3.4 L Chloride 97 L Carbon Dioxide 37 H Anion Gap 4 L BUN 26.7 H Creatinine 0.4 L Est GFR (CKD-EPI)AfAm 159.39 Est GFR (CKD-EPI)NonAf 137.52 Random Glucose 94 Lactic Acid 1.1 Calcium 9.3 Total Bilirubin 0.5 AST 50 H ALT 64 H Alkaline Phosphatase 181 H Troponin I Total Protein 6.6 Albumin 2.6 L Urine Color Yellow Urine Appearance Clear Urine pH 6.5 Ur Specific Gordon 1.013 Urine Protein Negative Urine Glucose (UA) Negative Urine Ketones Negative Urine Blood Negative Urine Nitrite Negative Urine Bilirubin Negative Urine Urobilinogen 0.2 Ur Leukocyte Esterase Negative 12/31/19 11:10 WBC RBC Hgb Hct MCV MCH MCHC RDW Plt Count MPV Absolute Neuts (auto) Neutrophils % Neutrophils % (Manual) Band Neutrophils % Lymphocytes % Lymphocytes % (Manual) Monocytes % Monocytes % (Manual) Eosinophils % Eosinophils % (Manual) Basophils % Basophils % (Manual) Myelocytes % (Man) Promyelocytes % (Man) Blast Cells % (Manual) Nucleated RBC % Metamyelocytes Hypochromia Platelet Estimate Polychromasia Poikilocytosis Anisocytosis Microcytosis Macrocytosis PT with INR INR PTT (Actin FS) VBG pH 7.434 H POC VBG pCO2 52.1 H POC VBG pO2 65.2 H VBG HCO3 34.1 H VBG O2 Sat (Carmina) 93.1 H VBG Base Excess 8.0 H Sodium Potassium Chloride Carbon Dioxide Anion Gap BUN Creatinine Est GFR (CKD-EPI)AfAm Est GFR (CKD-EPI)NonAf Random Glucose Lactic Acid Calcium Total Bilirubin AST ALT Alkaline Phosphatase Troponin I Total Protein Albumin Urine Color Urine Appearance Urine pH Ur Specific Gordon Urine Protein Urine Glucose (UA) Urine Ketones Urine Blood Urine Nitrite Urine Bilirubin Urine Urobilinogen Ur Leukocyte Esterase Imaging - Results X-ray: Report Reviewed Problem List - Problems (1) Sepsis Code(s): A41.9 - SEPSIS, UNSPECIFIED ORGANISM Qualifiers: Sepsis type: sepsis due to unspecified organism Sepsis acute organ dysfunction status: with acute organ dysfunction Severe sepsis acute organ dysfunction type: acute respiratory failure Acute respiratory failure type: with hypoxia Severe sepsis shock status: without septic shock Qualified Code(s): A41.9 - Sepsis, unspecified organism; R65.20 - Severe sepsis without septic shock; J96.01 - Acute respiratory failure with hypoxia (2) Cerebral palsy Code(s): G80.9 - CEREBRAL PALSY, UNSPECIFIED (3) Functional quadriplegia Code(s): R53.2 - FUNCTIONAL QUADRIPLEGIA (4) PEG (percutaneous endoscopic gastrostomy) status Code(s): Z93.1 - GASTROSTOMY STATUS (5) Hypothermia Code(s): T68.XXXA - HYPOTHERMIA, INITIAL ENCOUNTER Qualifiers: (6) Pneumonia Code(s): J18.9 - PNEUMONIA, UNSPECIFIED ORGANISM Assessment/Plan 49 y.o. male with PMH of Cerebral palsy, congenitial quadriplegia, seizure d.o., hx of respiratory failure s/p trach/GT sent from ID for respiratory distress and hypoxia. PNA Sepsis Acute hypoxemic respiratory failure Leukocytosis Hypothermia Previous hx of Intubation -with trach collar Cerebral palsy Functional Quadriplegia Seizure d.o. s/p GT -- continue broad spectrum antibiotics with Cefepime/Vancomycin/Azith, Vancomycin trough prior to 4th dose, monitor renal function -- send respiratory cultures -- f/u blood/urine culture results -- monitor wbc trend/vitals -- O2 supplementation, BD -- frequent suctioning Pt currently comfortable/alert monitor closely Will follow Thank you
[2019-12-31] MEDS ORDERED: CEFEPIME 2 GM in DEXTROSE 5%-WATER 100 ML IVPB SCH ×2 (18:00→22:00)
[2019-12-31] MEDS: CEFEPIME 2 GM in DEXTROSE 5%-WATER 100 ML IVPB SCH (18:45)
[2019-12-31] MEDS ORDERED: SODIUM CHLORIDE 500 ML IV STA ×2 (20:46→22:00)
[2020-01-01] MEDS: DOCUSATE SODIUM 100 MG CAPSULE (FP) PO SCH ×3 (00:14→22:56)
[2020-01-01] MEDS: SIMETHICONE 40 MG/0.6 ML BOTTLE GT SCH ×4 (00:15→23:08)
[2020-01-01] MEDS: POLYETHYLENE GLYCOL 3350 119 GM BTL PO SCH ×3 (00:15→22:56)
[2020-01-01] MEDS: BACLOFEN 10 MG TABLET (FP) GT SCH ×4 (00:15→22:55)
[2020-01-01] MEDS ORDERED: CEFEPIME 2 GM in DEXTROSE 5%-WATER 100 ML IVPB SCH (02:00)
[2020-01-01] MEDS ORDERED: VANCOMYCIN 1 GRAM (PRE-DOCKED) 1,000 MG/250 ML BAG IVPB ONE (02:58)
[2020-01-01] MEDS ORDERED: CEFEPIME 2 GM/100 ML BAG IVPB ONE (02:58)
[2020-01-01] MEDS ORDERED: VANCOMYCIN 1 GRAM (PRE-DOCKED) 1,000 MG/250 ML BAG IVPB SCH (03:00)
[2020-01-01] MEDS ORDERED: ACETAMINOPHEN 1000 MG/100 ML VIAL (NON FORMULARY) IVPB PRN ×2 (03:01→03:11)
[2020-01-01] MEDS: CEFEPIME 2 GM in DEXTROSE 5%-WATER 100 ML IVPB SCH ×3 (03:06→18:26)
[2020-01-01] MEDS ORDERED: BACLOFEN 10 MG TABLET (FP) ONE (05:38)
[2020-01-01 07:06] LABS: BASO % 0.2 % (0-2.0); EOS % 1.6 % (0-4.5); HEMATOCRIT 30.8 % (35.4-49); HEMOGLOBIN 10.4 GM/dL (11.7-16.9); LYMPH % 16.7 % (8-40); MCH 31.4 pg (25.7-33.7); MCHC 33.6 g/dl (32.0-35.9); MEAN CELL VOLUME 93.4 fl (80-96); MONO % 5.5 % (3.8-10.2); PLATELET COUNT 180 K/MM3 (134-434); RDW 17.7 % (11.9-15.9); WHITE BLOOD COUNT 11.1 K/mm3 (4.0-10.0)
[2020-01-01 07:37] LABS: ALBUMIN 2.1 g/dl (3.4-5.0); BILIRUBIN,TOTAL 0.5 mg/dL (0.2-1); BLOOD UREA NITROGEN 14.9 mg/dL (7-18); CALCIUM 8.3 mg/dL (8.5-10.1); CREATININE 0.5 mg/dL (0.55-1.3); MAGNESIUM 2.1 mg/dL (1.8-2.4); PHOSPHOROUS 1.9 mg/dL (2.5-4.9); POTASSIUM 4.4 mmol/L (3.5-5.1); TOT PROT 5.6 g/dl (6.4-8.2)
[2020-01-01] MEDS ORDERED: POTASSIUM PHOSPHATE 15 MM in SODIUM CHLORIDE 250 ML IVPB ONE (09:00)
[2020-01-01] MEDS: ENOXAPARIN NA (PORCINE) 40 MG/0.4 ML DISP.SYRIN SQ SCH (10:18)
[2020-01-01] MEDS: AZITHROMYCIN IVPB 500 MG/250 ML BAG IVPB SCH (10:31)
[2020-01-01] MEDS ORDERED: PT OWN MED DRAWER 7, Y5N ONE ×4 (10:39→22:23)
[2020-01-01] MEDS: SENNOSIDES 8.8 MG/5 ML BULK BOTTLE GT SCH (10:50)
--- NOTE | 2020-01-01 10:53 | EKG ---
Test Reason : Blood Pressure : / mmHG Vent. Rate : 079 BPM Atrial Rate : 079 BPM P-R Int : 194 ms QRS Dur : 098 ms QT Int : 344 ms P-R-T Axes : 053 049 032 degrees QTc Int : 394 ms NORMAL SINUS RHYTHM NORMAL ECG WHEN COMPARED WITH ECG OF 15-FEB-2019 08:39, VENT. RATE HAS INCREASED BY 33 BPM Confirmed by ELIZABETH ESPOSITO MD ([id number]) on 01/01/2020 10:52:49 AM Referred By: Confirmed By:ELIZABETH ESPOSITO MD
[2020-01-01] MEDS: ALBUTEROL SO4 2.5/IPRATROPIUM 0.5 INH SOL 3 ML VIAL.NEB. NEB SCH ×3 (12:04→20:30)
[2020-01-01] MEDS ORDERED: SODIUM CHLORIDE 1,000 ML IV SCH (13:30)
--- NOTE | 2020-01-01 13:42 | PN ---
Physical Exam: SUBJECTIVE: Patient seen and examined. From [place], nonverbal at baseline. On trach collar 5L O2. OBJECTIVE: Vital Signs Period Temp Pulse Resp BP Sys/Oropeza Pulse Ox Last 24 Hr 94.5 F-100.1 F 62-97 16-100 62-125/44-79 93-100 GENERAL: Limited exam, congenital quadriplegia, nonverbal at baseline. HEAD: Normal with no signs of trauma. EYES: PERRL, extraocular movements intact, sclera anicteric, conjunctiva clear. No ptosis. ENT: Ears normal, nares patent, oropharynx clear without exudates, moist mucous membranes. NECK: Trachea midline, full range of motion, supple. LUNGS: On trach collar, 5L. Coarse breath sounds bilaterally. HEART: Regular rate and rhythm, S1, S2 without murmur, rub or gallop. ABDOMEN: Soft, nontender, nondistended, normoactive bowel sounds, no guarding, no rebound, no hepatosplenomegaly, no masses. EXTREMITIES: 2+ pulses, warm, well-perfused, no edema. NEUROLOGICAL: Muscles contracted at baseline. PSYCH: Normal mood, normal affect. SKIN: Warm, dry, normal turgor, no rashes or lesions noted Laboratory Results - last 24 hr 12/31/19 12/31/19 01/01/20 13:11 19:07 06:30 WBC 11.1 H RBC 3.30 L Hgb 10.4 L Hct 30.8 L D MCV 93.4 MCH 31.4 MCHC 33.6 RDW 17.7 H Plt Count 180 MPV 8.0 Absolute Neuts (auto) 8.4 H Neutrophils % 76.0 Lymphocytes % 16.7 D Monocytes % 5.5 Eosinophils % 1.6 D Basophils % 0.2 D Nucleated RBC % 0 Sodium Potassium Chloride Carbon Dioxide Anion Gap BUN Creatinine Est GFR (CKD-EPI)AfAm Est GFR (CKD-EPI)NonAf POC Glucometer 95 Random Glucose Calcium Phosphorus Magnesium Total Bilirubin AST ALT Alkaline Phosphatase Total Protein Albumin COVID-19 (JACKIE) Not detected 01/01/20 06:30 WBC RBC Hgb Hct MCV MCH MCHC RDW Plt Count MPV Absolute Neuts (auto) Neutrophils % Lymphocytes % Monocytes % Eosinophils % Basophils % Nucleated RBC % Sodium 140 Potassium 4.4 Chloride 108 H Carbon Dioxide 27 Anion Gap 5 L BUN 14.9 Creatinine 0.5 L Est GFR (CKD-EPI)AfAm 145.42 Est GFR (CKD-EPI)NonAf 125.47 POC Glucometer Random Glucose 65 L Calcium 8.3 L Phosphorus 1.9 L Magnesium 2.1 Total Bilirubin 0.5 AST 35 ALT 53 Alkaline Phosphatase 136 H Total Protein 5.6 L Albumin 2.1 L COVID-19 (JACKIE) Active Medications Generic Name Dose Route Start Last Admin Trade Name Freq PRN Reason Stop Dose Admin Acetaminophen 500 mg 01/01/20 03:11 Ofirmev Injection - IVPB 01/02/20 03:02 Q6H PRN FEVER Albuterol/Ipratropium 1 amp 01/01/20 12:00 Duoneb - NEB RQID TARIQ Baclofen 10 mg 12/31/19 22:00 01/01/20 06:09 Lioresal - GT 10 mg TID TARIQ Administration Docusate Sodium 100 mg 12/31/19 22:00 01/01/20 10:20 Colace - PO Not Given BID TARIQ Enoxaparin Sodium 40 mg 01/01/20 10:00 01/01/20 10:18 Lovenox - SQ 40 mg DAILY TARIQ Administration Cefepime HCl 2 gm/ Dextrose 100 mls @ 200 mls/hr 12/31/19 18:00 01/01/20 13:13 IVPB 200 mls/hr Q8H-IV TARIQ Administration Protocol Azithromycin 500 mg in 250 mls @ 250 mls/hr 01/01/20 10:00 01/01/20 10:31 Zithromax 500mg Ivpb (Pre-Docked) IVPB 250 mls/hr DAILY TARIQ Administration Vancomycin HCl 1,000 mg in 250 mls @ 166.667 mls/hr 01/01/20 03:00 01/01/20 03:22 Vancomycin (Pre-Docked) IVPB 166.667 mls/hr Q12H TARIQ Administration Protocol Potassium Phosphate 15 mm/ 255 mls @ 42.5 mls/hr 01/01/20 09:00 01/01/20 13:02 Sodium Chloride IVPB 01/01/20 14:59 42.5 mls/hr ONCE ONE Administration Polyethylene Glycol 17 gm 12/31/19 22:00 01/01/20 10:50 Miralax (For Daily Use) - PO 17 gm BID TARIQ Administration Senna 17.6 mg 01/01/20 10:00 01/01/20 10:50 Senna Oral Solution - GT 17.6 mg DAILY TARIQ Administration Simethicone 40 mg 12/31/19 22:00 01/01/20 06:10 Mylicon Liquid - GT 40 mg TID TARIQ Administration ASSESSMENT/PLAN: Pt is a 49 year old male from [facility] with PMHx of cerebral palsy, intellectual disability (non-verbal), congenital quadriplegia, epilepsy, G-tube and tracheostomy presenting with SOB and hypoxia, admitted for hypoxia secondary to pneumonia. #Hypoxia 2/2 to pneumonia -Sputum culture gram negative non lactose fermenting bacilli -Resistance to Zosyn in the past -ID consulted; stopping vanco -Treated with cefepime/azithro -5L O2 tracheal collar; previous hx of intubation -Follow up final sputum culture, blood and urine culture -frequent suctioning #Epilepsy -does not seem to be on antiepileptics; will confirm #G-tube -On tube feeds PPx Lovenox 40mg SQ daily FEN -No standing fluids -Monitor electrolytes -G tube feeds Dispo Admitted tele. Visit type - Emergency Visit Emergency Visit: Yes ED Registration Date: 12/31/19 Care time: The patient presented to the Emergency Department on the above date and was hospitalized for further evaluation of their emergent condition. - New Patient This patient is new to me today: No - Critical Care Critical Care patient: No ATTENDING PHYSICIAN STATEMENT I saw and evaluated the patient. I reviewed the resident's note and discussed the case with the resident. I agree with the resident's findings and plan as documented. SUBJECTIVE: OBJECTIVE: ASSESSMENT AND PLAN:
--- NOTE | 2020-01-01 13:50 | PN ---
Progress Note, Physician History of Present Illness: stable still with thick secretions looks comfortable - Current Medication List Current Medications: Active Medications Acetaminophen (Ofirmev Injection -) 500 mg IVPB Q6H PRN PRN Reason: FEVER Stop: 01/02/20 03:02 Albuterol/Ipratropium (Duoneb -) 1 amp NEB RQID ON LICENSE OF [facility] Baclofen (Lioresal -) 10 mg GT TID ON LICENSE OF [facility] Last Admin: 01/01/20 06:09 Dose: 10 mg Documented by: Docusate Sodium (Colace -) 100 mg PO BID ON LICENSE OF [facility] Last Admin: 01/01/20 10:20 Dose: Not Given Documented by: Enoxaparin Sodium (Lovenox -) 40 mg SQ DAILY ON LICENSE OF [facility] Last Admin: 01/01/20 10:18 Dose: 40 mg Documented by: Cefepime HCl 2 gm/ Dextrose 100 mls @ 200 mls/hr IVPB Q8H-IV TARIQ; Protocol Last Admin: 01/01/20 13:13 Dose: 200 mls/hr Documented by: Azithromycin (Zithromax 500mg Ivpb (Pre-Docked)) 500 mg in 250 mls @ 250 mls/hr IVPB DAILY ON LICENSE OF [facility] Last Admin: 01/01/20 10:31 Dose: 250 mls/hr Documented by: Potassium Phosphate 15 mm/ (Sodium Chloride) 255 mls @ 42.5 mls/hr IVPB ONCE ONE Stop: 01/01/20 14:59 Last Admin: 01/01/20 13:02 Dose: 42.5 mls/hr Documented by: Polyethylene Glycol (Miralax (For Daily Use) -) 17 gm PO BID ON LICENSE OF [facility] Last Admin: 01/01/20 10:50 Dose: 17 gm Documented by: Senna (Senna Oral Solution -) 17.6 mg GT DAILY ON LICENSE OF [facility] Last Admin: 01/01/20 10:50 Dose: 17.6 mg Documented by: Simethicone (Mylicon Liquid -) 40 mg GT TID ON LICENSE OF [facility] Last Admin: 01/01/20 06:10 Dose: 40 mg Documented by: - Objective Vital Signs: Vital Signs Temperature 98.8 F 01/01/20 08:20 Pulse Rate 84 01/01/20 08:20 Respiratory Rate 18 01/01/20 08:20 Blood Pressure 111/57 L 01/01/20 08:20 O2 Sat by Pulse Oximetry (%) 97 01/01/20 09:10 Constitutional: Yes: No Distress, Calm Cardiovascular: Yes: S1, S2 Respiratory: Yes: Poor Air Entry, Other (trach in place, thick secretions) Gastrointestinal: Yes: Normal Bowel Sounds, Soft Musculoskeletal: Yes: WNL Extremities: Yes: WNL Neurological: Yes: Other Psychiatric: Yes: Other Labs: CBC, BMP 01/01/20 06:30 01/01/20 06:30 INR, PTT INR 0.99 (0.83-1.09) 12/31/19 11:10 Assessment/Plan Problem List - Problems (1) Sepsis Code(s): A41.9 - SEPSIS, UNSPECIFIED ORGANISM Qualifiers: Sepsis type: sepsis due to unspecified organism Sepsis acute organ dysfunction status: with acute organ dysfunction Severe sepsis acute organ dysfunction type: acute respiratory failure Acute respiratory failure type: with hypoxia Severe sepsis shock status: without septic shock Qualified Code(s): A41.9 - Sepsis, unspecified organism; R65.20 - Severe sepsis without septic shock; J96.01 - Acute respiratory failure with hypoxia (2) Cerebral palsy Code(s): G80.9 - CEREBRAL PALSY, UNSPECIFIED (3) Functional quadriplegia Code(s): R53.2 - FUNCTIONAL QUADRIPLEGIA (4) PEG (percutaneous endoscopic gastrostomy) status Code(s): Z93.1 - GASTROSTOMY STATUS (5) Hypothermia Code(s): T68.XXXA - HYPOTHERMIA, INITIAL ENCOUNTER Qualifiers: (6) Pneumonia Code(s): J18.9 - PNEUMONIA, UNSPECIFIED ORGANISM Assessment/Plan 49 y.o. male with PMH of Cerebral palsy, congenitial quadriplegia, seizure d.o., hx of respiratory failure s/p trach/GT sent from [place] for respiratory distress and hypoxia. PNA Sepsis Acute hypoxemic respiratory failure Leukocytosis Hypothermia Previous hx of Intubation -with trach collar Cerebral palsy Functional Quadriplegia Seizure d.o. s/p GT plan cx results noted will stop vanco rest ct abx suctioning
[2020-01-01 14:03] VITALS: BMI 26.7
--- NOTE | 2020-01-01 17:05 | PN ---
Teaching Attending Note Name of Resident: Saw George ATTENDING PHYSICIAN STATEMENT I saw and evaluated the patient. I reviewed the resident's note and discussed the case with the resident. I agree with the resident's findings and plan as documented. SUBJECTIVE: Non-verbal, unable to participate in medical interview. OBJECTIVE: Tmax 100.1, Hemodynamically stable. SpO2 97% on 30% O2 via Trach. Last Vital Signs Temp Pulse Resp BP Pulse Ox 97.1 F L 73 20 132/61 97 01/01/20 13:00 01/01/20 13:00 01/01/20 13:00 01/01/20 13:00 01/01/20 09:10 Heart - S1, S2, RRR Lungs - Trach collar. Bilateral lower zone crackles and occasional wheeze. Abdomen - Soft, non-tender. G-tube site cleaned. Bowel Sounds normal Extremities - Bilateral UE/LE contractures. Neuro - Awake, not verbally responsive. Laboratory Results - last 24 hr 12/31/19 12/31/19 01/01/20 13:11 19:07 06:30 WBC 11.1 H RBC 3.30 L Hgb 10.4 L Hct 30.8 L D MCV 93.4 MCH 31.4 MCHC 33.6 RDW 17.7 H Plt Count 180 MPV 8.0 Absolute Neuts (auto) 8.4 H Neutrophils % 76.0 Lymphocytes % 16.7 D Monocytes % 5.5 Eosinophils % 1.6 D Basophils % 0.2 D Nucleated RBC % 0 Sodium Potassium Chloride Carbon Dioxide Anion Gap BUN Creatinine Est GFR (CKD-EPI)AfAm Est GFR (CKD-EPI)NonAf POC Glucometer 95 Random Glucose Calcium Phosphorus Magnesium Total Bilirubin AST ALT Alkaline Phosphatase Total Protein Albumin COVID-19 (JACKIE) Not detected 01/01/20 06:30 WBC RBC Hgb Hct MCV MCH MCHC RDW Plt Count MPV Absolute Neuts (auto) Neutrophils % Lymphocytes % Monocytes % Eosinophils % Basophils % Nucleated RBC % Sodium 140 Potassium 4.4 Chloride 108 H Carbon Dioxide 27 Anion Gap 5 L BUN 14.9 Creatinine 0.5 L Est GFR (CKD-EPI)AfAm 145.42 Est GFR (CKD-EPI)NonAf 125.47 POC Glucometer Random Glucose 65 L Calcium 8.3 L Phosphorus 1.9 L Magnesium 2.1 Total Bilirubin 0.5 AST 35 ALT 53 Alkaline Phosphatase 136 H Total Protein 5.6 L Albumin 2.1 L COVID-19 (JACKIE) Current Medications Generic Name Dose Route Start Last Admin Trade Name Lesa PRN Reason Stop Dose Admin Acetaminophen 500 mg 01/01/20 03:11 Ofirmev Injection - IVPB 01/02/20 03:02 Q6H PRN FEVER Albuterol/Ipratropium 1 amp 01/01/20 12:00 01/01/20 16:05 Duoneb - NEB Not Given RQID TARIQ Baclofen 10 mg 12/31/19 22:00 01/01/20 16:16 Lioresal - GT 10 mg TID TARIQ Administration Docusate Sodium 100 mg 12/31/19 22:00 01/01/20 10:20 Colace - PO Not Given BID TARIQ Enoxaparin Sodium 40 mg 01/01/20 10:00 01/01/20 10:18 Lovenox - SQ 40 mg DAILY TARIQ Administration Cefepime HCl 2 gm/ Dextrose 100 mls @ 200 mls/hr 12/31/19 18:00 01/01/20 13:13 IVPB 200 mls/hr Q8H-IV TARIQ Administration Protocol Azithromycin 500 mg in 250 mls @ 250 mls/hr 01/01/20 10:00 01/01/20 10:31 Zithromax 500mg Ivpb (Pre-Docked) IVPB 250 mls/hr DAILY TARIQ Administration Polyethylene Glycol 17 gm 12/31/19 22:00 01/01/20 10:50 Miralax (For Daily Use) - PO 17 gm BID TARIQ Administration Senna 17.6 mg 01/01/20 10:00 01/01/20 10:50 Senna Oral Solution - GT 17.6 mg DAILY TARIQ Administration Simethicone 40 mg 12/31/19 22:00 01/01/20 16:17 Mylicon Liquid - GT 40 mg TID TARIQ Administration Home Medications Medication Instructions Recorded Baclofen 10 mg GT TID 01/29/16 Cholecalciferol (Vitamin D3) 2,000 unit GT HS 01/29/16 [Vitamin D3] Simethicone 40 mg GT TID 01/29/16 Albuterol 2.5/Ipratropium 0.5 1 amp NEB RQID amp 03/08/18 [Duoneb -] Mag Carb/Aluminum Hydrox/Algin 5 ml GT TID 11/14/18 [Riginic Suspension] [place]-3/Dha/Epa/Fish Oil [Fish Oil 1,000 mg GT BID 11/14/18 1,600 mg/5 ml Liquid] Scopolamine [Transderm-Scop] 1 mg TD ASDIR 11/14/18 Sennosides [Senna] 17.6 mg GT DAILY 11/14/18 Lubiprostone [Amitiza] 24 mcg GT BID 12/01/18 Polyethylene Glycol 3350 [Miralax 17 gm PO BID bottle 12/01/18 119 gm Btl -] Calcium Carbonate/Vitamin D3 1 tab GT BID 01/01/20 [Calcium 500-Vit D3 200 Tablet] Magnesium Hydrox 2400MG/30Ml [Milk 30 ml GT DAILY 01/01/20 of Magnesia -] ASSESSMENT AND PLAN: 49 year old male [place] resident with history of Cerebral Palsy, cognitive impairment (non-verbal), functional quadriplegia, epilepsy, s/p Trach and G- tube, send to ED for respiratory distress and hypoxia with reported SpO2 to 85% RA. CT Chest - bilateral upper lobe ground glass opacities, possible RLL consolidation CT A/P - fecal impaction rectum and sigmoid colon, suspected choledocholi thiasis. 1. Acute Hypoxic Respiratory Failure and Sepsis secondary to Pneumonia - HCAP vs Aspiration Sputum Cx - prelim result: [id number] Leukocytosis resolving Supplemental O2 via Trach Hx of Pseudomonas and Klebsiella in the sputum Continue Cefepime and Azithromycin. 2. Seizure Disorder - does not appear to be on anti-seizure medications, will confirm regular meds. 3. Chronic Constipation/Fecal Impaction - Continue Senna, Lubiprostone, Miralax, Milk of Magnesia, Colace and attempt Enema. If unsuccessful, may need manual dis-impaction. 4. Cerebral Palsy/Functional Quadriplegia/Cognitive Impairment - s/p Trach. Feeds via PEG - resume G tube feeds. Regular turning/repositioning. 5. Hypophosphatemia - repleted. DVT Px - Lovenox SQ.
[2020-01-02] MEDS: CEFEPIME 2 GM in DEXTROSE 5%-WATER 100 ML IVPB SCH ×3 (01:45→18:31)
[2020-01-02] MEDS ORDERED: PT OWN MED DRAWER 7, Y5N ONE ×8 (01:49→22:07)
[2020-01-02] MEDS: SIMETHICONE 40 MG/0.6 ML BOTTLE GT SCH ×3 (06:19→22:10)
[2020-01-02] MEDS: BACLOFEN 10 MG TABLET (FP) GT SCH ×3 (06:19→22:10)
[2020-01-02 06:47] LABS: BASO % 0.3 % (0-2.0); EOS % 3.4 % (0-4.5); HEMATOCRIT 31.6 % (35.4-49); HEMOGLOBIN 10.7 GM/dL (11.7-16.9); LYMPH % 25.7 % (8-40); MCH 31.3 pg (25.7-33.7); MCHC 33.9 g/dl (32.0-35.9); MEAN CELL VOLUME 92.3 fl (80-96); MEAN PLT VOLUME 8.3 fl (7.5-11.1); MONO % 8.6 % (3.8-10.2); PLATELET COUNT 170 K/MM3 (134-434); RBC 3.42 M/mm3 (4.00-5.60); RDW 18.3 % (11.9-15.9); WHITE BLOOD COUNT 6.4 K/mm3 (4.0-10.0)
[2020-01-02 07:16] LABS: ALBUMIN 2.2 g/dl (3.4-5.0); BILIRUBIN,TOTAL 0.5 mg/dL (0.2-1); BLOOD UREA NITROGEN 13.9 mg/dL (7-18); CALCIUM 8.4 mg/dL (8.5-10.1); CREATININE 0.4 mg/dL (0.55-1.3); MAGNESIUM 2.1 mg/dL (1.8-2.4); PHOSPHOROUS 3.4 mg/dL (2.5-4.9); POTASSIUM 4.1 mmol/L (3.5-5.1); TOT PROT 5.7 g/dl (6.4-8.2)
[2020-01-02] MEDS: ALBUTEROL SO4 2.5/IPRATROPIUM 0.5 INH SOL 3 ML VIAL.NEB. NEB SCH ×4 (08:05→20:15)
--- NOTE | 2020-01-02 08:47 | PN ---
Progress Note, Physician History of Present Illness: stable still with thick secretions noted from trach - Current Medication List Current Medications: Active Medications Albuterol/Ipratropium (Duoneb -) 1 amp NEB RQID [facility] Last Admin: 01/01/20 20:30 Dose: 1 amp Documented by: Baclofen (Lioresal -) 10 mg GT TID [facility] Last Admin: 01/02/20 06:19 Dose: 10 mg Documented by: Calcium Carbonate/Cholecalciferol (Os-Mich 500+D -) 1 tab GT BID [facility] Cholecalciferol (Vitamin D3 -) 2,000 unit GT HS [facility] Docusate Sodium (Colace Liquid -) 100 mg GT BID [facility] Enoxaparin Sodium (Lovenox -) 40 mg SQ DAILY [facility] Last Admin: 01/01/20 10:18 Dose: 40 mg Documented by: Cefepime HCl 2 gm/ Dextrose 100 mls @ 200 mls/hr IVPB Q8H-IV [facility]; Protocol Last Admin: 01/02/20 01:45 Dose: 200 mls/hr Documented by: Azithromycin (Zithromax 500mg Ivpb (Pre-Docked)) 500 mg in 250 mls @ 250 mls/hr IVPB DAILY [facility] Last Admin: 01/01/20 10:31 Dose: 250 mls/hr Documented by: Magnesium Hydroxide (Milk Of Magnesia -) 30 ml GT DAILY [facility] Non-Formulary Medication (Lubiprostone [Amitiza]) 24 mcg GT BID [facility] Non-Formulary Medication (Mag Carb/Aluminum Hydrox/Algin [Riginic Suspension]) 5 ml GT TID [facility] Zlchy-3-Dbgy Ethyl Esters (Lovaza -) 1 gm PO BID [facility] Polyethylene Glycol (Miralax (For Daily Use) -) 17 gm GT BID [facility] Senna (Senna Oral Solution -) 17.6 mg GT DAILY [facility] Last Admin: 01/01/20 10:50 Dose: 17.6 mg Documented by: Simethicone (Mylicon Liquid -) 40 mg GT TID [facility] Last Admin: 01/02/20 06:19 Dose: 40 mg Documented by: - Objective Vital Signs: Vital Signs Temperature 98.1 F 01/02/20 05:00 Pulse Rate 55 L 01/02/20 05:00 Respiratory Rate 20 01/02/20 05:00 Blood Pressure 127/82 01/02/20 05:00 O2 Sat by Pulse Oximetry (%) 96 01/02/20 05:00 Constitutional: Yes: No Distress, Calm Cardiovascular: Yes: S1, S2 Respiratory: Yes: Regular, Other (trach in place secretions) Gastrointestinal: Yes: Normal Bowel Sounds, Soft Musculoskeletal: Yes: WNL Extremities: Yes: Other (contracted) Labs: CBC, BMP 01/02/20 06:00 01/02/20 06:00 INR, PTT INR 0.99 (0.83-1.09) 12/31/19 11:10 Assessment/Plan Problem List - Problems (1) Sepsis Code(s): A41.9 - SEPSIS, UNSPECIFIED ORGANISM Qualifiers: Sepsis type: sepsis due to unspecified organism Sepsis acute organ dysfunction status: with acute organ dysfunction Severe sepsis acute organ dysfunction type: acute respiratory failure Acute respiratory failure type: with hypoxia Severe sepsis shock status: without septic shock Qualified Code(s): A41.9 - Sepsis, unspecified organism; R65.20 - Severe sepsis without septic shock; J96.01 - Acute respiratory failure with hypoxia (2) Cerebral palsy Code(s): G80.9 - CEREBRAL PALSY, UNSPECIFIED (3) Functional quadriplegia Code(s): R53.2 - FUNCTIONAL QUADRIPLEGIA (4) PEG (percutaneous endoscopic gastrostomy) status Code(s): Z93.1 - GASTROSTOMY STATUS (5) Hypothermia Code(s): T68.XXXA - HYPOTHERMIA, INITIAL ENCOUNTER Qualifiers: (6) Pneumonia Code(s): J18.9 - PNEUMONIA, UNSPECIFIED ORGANISM Assessment/Plan 49 y.o. male with PMH of Cerebral palsy, congenitial quadriplegia, seizure d.o., hx of respiratory failure s/p trach/GT sent from [place] for respiratory distress and hypoxia. PNA Sepsis Acute hypoxemic respiratory failure Leukocytosis Hypothermia Previous hx of Intubation -with trach collar Cerebral palsy Functional Quadriplegia Seizure d.o. s/p GT plan cx results noted c abx await for identification of organisms rest as per the team
[2020-01-02] MEDS: AZITHROMYCIN IVPB 500 MG/250 ML BAG IVPB SCH (09:21)
[2020-01-02] MEDS: ENOXAPARIN NA (PORCINE) 40 MG/0.4 ML DISP.SYRIN SQ SCH (09:21)
[2020-01-02] MEDS: CALCIUM 500MG/VIT-D 200 UNITS COMBO TABLET (FP) GT SCH ×2 (09:28→22:09)
[2020-01-02] MEDS: MAGNESIUM HYDROX 2400MG/30ML ORAL SUSPENSION 30 ML CUP GT SCH (09:29)
[2020-01-02] MEDS: SENNOSIDES 8.8 MG/5 ML BULK BOTTLE GT SCH (09:30)
[2020-01-02] MEDS ORDERED: PATIENT'S OWN MEDICATION (NON-FORMULARY) (Lubiprostone [Amitiza] 24 MCG) GT SCH (10:00)
[2020-01-02] MEDS: OMEGA-3 ACID ETHYL ESTERS (FATTY-ACIDS) 1 GM CAPSULE (FP) PO SCH ×2 (10:14→21:02)
[2020-01-02] MEDS: DOCUSATE NA 100 MG/10 ML UNIT-DOSE CUPS GT SCH ×2 (10:48→22:09)
[2020-01-02] MEDS: POLYETHYLENE GLYCOL 3350 119 GM BTL GT SCH ×2 (10:48→22:10)
[2020-01-02] MEDS ORDERED: ALUMINUM HYDROX GT SCH (14:00)
[2020-01-02] MEDS ORDERED: MAG CARB GT SCH (14:00)
[2020-01-02] MEDS ORDERED: ALGIN GT SCH (14:00)
[2020-01-02] MEDS ORDERED: [UNRECOGNIZED DRUG - OTHER] GT SCH (14:00)
--- NOTE | 2020-01-02 14:06 | PN ---
Teaching Attending Note Name of Resident: Saw George ATTENDING PHYSICIAN STATEMENT I saw and evaluated the patient. I reviewed the resident's note and discussed the case with the resident. I agree with the resident's findings and plan as documented. SUBJECTIVE: pt seen and examined OBJECTIVE: ASSESSMENT AND PLAN: 49 year old male [place] resident with history of Cerebral Palsy, cognitive impairment (non-verbal), functional quadriplegia, epilepsy, s/p Trach and G- tube, send to ED for respiratory distress and hypoxia with reported SpO2 to 85% RA. # Acute Hypoxic Respiratory Failure and Sepsis secondary to Pneumonia [facility] Acquired Sputum Cx - prelim result: NLFGNB CT Chest - bilateral upper lobe ground glass opacities, possible RLL consolidation Leukocytosis resolving Supplemental O2 via Trach Hx of Pseudomonas and Klebsiella in the sputum Continue Cefepime and Azithromycin. h/o Seizure Disorder Chronic Constipation/Fecal Impaction Cerebral Palsy/Functional Quadriplegia/Cognitive Impairment DVT Px - Lovenox SQ.
--- NOTE | 2020-01-02 14:43 | PN ---
Physical Exam: SUBJECTIVE: Patient seen and examined. OBJECTIVE: Vital Signs Period Temp Pulse Resp BP Sys/Oropeza Pulse Ox Last 24 Hr 97 F-98.3 F 55-74 18-20 97-142/49-82 96-97 GENERAL: Limited exam, congenital quadriplegia, nonverbal at baseline. HEAD: Normal with no signs of trauma. EYES: PERRL, extraocular movements intact, sclera anicteric, conjunctiva clear. No ptosis. ENT: Ears normal, nares patent, oropharynx clear without exudates, moist mucous membranes. NECK: Trachea midline, full range of motion, supple. LUNGS: On trach collar, 6L. Improved breath sounds throughout. HEART: Regular rate and rhythm, S1, S2 without murmur, rub or gallop. ABDOMEN: Soft, nontender, nondistended, normoactive bowel sounds, no guarding, no rebound, no hepatosplenomegaly, no masses. EXTREMITIES: 2+ pulses, warm, well-perfused, no edema. NEUROLOGICAL: Muscles contracted at baseline. PSYCH: Normal mood, normal affect. SKIN: Warm, dry, normal turgor, no rashes or lesions noted Laboratory Results - last 24 hr 01/01/20 01/02/20 01/02/20 18:00 06:00 06:00 WBC 6.4 RBC 3.42 L Hgb 10.7 L Hct 31.6 L MCV 92.3 MCH 31.3 MCHC 33.9 RDW 18.3 H Plt Count 170 MPV 8.3 Absolute Neuts (auto) 4.0 Neutrophils % 62.0 Lymphocytes % 25.7 D Monocytes % 8.6 Eosinophils % 3.4 D Basophils % 0.3 Nucleated RBC % 0 Sodium 140 Potassium 4.1 Chloride 107 Carbon Dioxide 30 Anion Gap 3 L BUN 13.9 Creatinine 0.4 L Est GFR (CKD-EPI)AfAm 159.39 Est GFR (CKD-EPI)NonAf 137.52 Random Glucose 90 Calcium 8.4 L Phosphorus 3.4 Magnesium 2.1 Total Bilirubin 0.5 AST 68 H ALT 75 H Alkaline Phosphatase 131 H Total Protein 5.7 L Albumin 2.2 L COVID-19 (JACKIE) Not detected Active Medications Generic Name Dose Route Start Last Admin Trade Name Freq PRN Reason Stop Dose Admin Albuterol/Ipratropium 1 amp 01/01/20 12:00 01/02/20 08:05 Duoneb - NEB Not Given RQID [facility] Baclofen 10 mg 12/31/19 22:00 01/02/20 13:09 Lioresal - GT 10 mg TID [facility] Administration Calcium Carbonate/Cholecalciferol 1 tab 01/02/20 10:00 01/02/20 09:28 Os-Mich 500+D - GT 1 tab BID [facility] Administration Cholecalciferol 2,000 unit 01/02/20 22:00 Vitamin D3 - GT HS [facility] Docusate Sodium 100 mg 01/02/20 08:07 01/02/20 10:48 Colace Liquid - GT 100 mg BID [facility] Administration Enoxaparin Sodium 40 mg 01/01/20 10:00 01/02/20 09:21 Lovenox - SQ 40 mg DAILY [facility] Administration Cefepime HCl 2 gm/ Dextrose 100 mls @ 200 mls/hr 12/31/19 18:00 01/02/20 11:21 IVPB 200 mls/hr Q8H-IV [facility] Administration Protocol Azithromycin 500 mg in 250 mls @ 250 mls/hr 01/01/20 10:00 01/02/20 09:21 Zithromax 500mg Ivpb (Pre-Docked) IVPB 250 mls/hr DAILY [facility] Administration Magnesium Hydroxide 30 ml 01/02/20 10:00 01/02/20 09:29 Milk Of Magnesia - GT 30 ml DAILY [facility] Administration Non-Formulary Medication 24 mcg 01/02/20 10:00 Lubiprostone [Amitiza] GT BID [facility] Non-Formulary Medication 5 ml 01/02/20 14:00 Mag Carb/Aluminum Hydrox/Algin [Riginic Suspension] GT TID [facility] Uydtw-7-Nhso Ethyl Esters 1 gm 01/02/20 10:00 01/02/20 10:14 Lovaza - PO Not Given BID [facility] Polyethylene Glycol 17 gm 01/02/20 08:07 01/02/20 10:48 Miralax (For Daily Use) - GT 17 gm BID [facility] Administration Senna 17.6 mg 01/01/20 10:00 01/02/20 09:30 Senna Oral Solution - GT 17.6 mg DAILY [facility] Administration Simethicone 40 mg 12/31/19 22:00 01/02/20 13:09 Mylicon Liquid - GT 40 mg TID [facility] Administration ASSESSMENT/PLAN: Pt is a 49 year old male from [facility] with PMHx of cerebral palsy, intellectual disability (non-verbal), congenital quadriplegia, epilepsy, G-tube and tracheostomy presenting with SOB and hypoxia, admitted for hypoxia secondary to pneumonia. #Hypoxia 2/2 to pneumonia -Sputum culture prelim Pseudomonas -Resistance to Zosyn in the past; continue cefepime and azithro -96% on 6L O2 tracheal collar; previous hx of intubation -Follow up final sputum culture, blood and urine culture -frequent suctioning #Epilepsy -Per hx, no seizures since 1984, not on antiepileptics since 1994 #G-tube -On tube feeds PPx Lovenox 40mg SQ daily FEN -No standing fluids -Monitor electrolytes -G tube feeds Dispo Admitted tele. Visit type - Emergency Visit Emergency Visit: Yes ED Registration Date: 12/31/19 Care time: The patient presented to the Emergency Department on the above date and was hospitalized for further evaluation of their emergent condition. - New Patient This patient is new to me today: No - Critical Care Critical Care patient: No ATTENDING PHYSICIAN STATEMENT I saw and evaluated the patient. I reviewed the resident's note and discussed the case with the resident. I agree with the resident's findings and plan as documented. SUBJECTIVE: OBJECTIVE: ASSESSMENT AND PLAN:
[2020-01-02] MEDS: CHOLECALCIFEROL (VIT D3) 1,000 UNIT (25 MCG) TABLET GT SCH (22:10)
[2020-01-03] MEDS ORDERED: PT OWN MED DRAWER 7, Y5N ONE ×7 (01:22→21:03)
[2020-01-03] MEDS: CEFEPIME 2 GM in DEXTROSE 5%-WATER 100 ML IVPB SCH ×3 (02:07→20:15)
[2020-01-03] MEDS: SIMETHICONE 40 MG/0.6 ML BOTTLE GT SCH ×3 (06:29→21:07)
[2020-01-03] MEDS: BACLOFEN 10 MG TABLET (FP) GT SCH ×3 (06:29→21:07)
[2020-01-03] MEDS: ALBUTEROL SO4 2.5/IPRATROPIUM 0.5 INH SOL 3 ML VIAL.NEB. NEB SCH ×4 (07:45→20:10)
[2020-01-03 08:12] LABS: POTASSIUM 3.9 mmol/L (3.5-5.1)
[2020-01-03 08:19] LABS: ALBUMIN 2.5 g/dl (3.4-5.0); BLOOD UREA NITROGEN 15.8 mg/dL (7-18); CALCIUM 8.8 mg/dL (8.5-10.1); CREATININE 0.6 mg/dL (0.55-1.3); MAGNESIUM 2.1 mg/dL (1.8-2.4); PHOSPHOROUS 3.3 mg/dL (2.5-4.9); TOT PROT 6.4 g/dl (6.4-8.2)
[2020-01-03 08:32] LABS: BASO % 0.8 % (0-2.0); EOS % 2.6 % (0-4.5); HEMATOCRIT 34.2 % (35.4-49); HEMOGLOBIN 11.8 GM/dL (11.7-16.9); LYMPH % 22.8 % (8-40); MCH 32.1 pg (25.7-33.7); MCHC 34.5 g/dl (32.0-35.9); MEAN CELL VOLUME 92.9 fl (80-96); MEAN PLT VOLUME 8.5 fl (7.5-11.1); MONO % 9.6 % (3.8-10.2); NEUT % 64.2 % (42.8-82.8); PLATELET COUNT 227 K/MM3 (134-434); RBC 3.68 M/mm3 (4.00-5.60); RDW 17.7 % (11.9-15.9); WHITE BLOOD COUNT 7.3 K/mm3 (4.0-10.0)
[2020-01-03] MEDS: MAGNESIUM HYDROX 2400MG/30ML ORAL SUSPENSION 30 ML CUP GT SCH (10:39)
[2020-01-03] MEDS: CALCIUM 500MG/VIT-D 200 UNITS COMBO TABLET (FP) GT SCH ×2 (10:39→21:07)
[2020-01-03] MEDS: DOCUSATE NA 100 MG/10 ML UNIT-DOSE CUPS GT SCH ×2 (10:39→21:07)
[2020-01-03 10:40] LABS: ANISOCYTOSIS 1+; MACROCYTOSIS 1+; PLATELET ESTIMATE NORMAL
[2020-01-03] MEDS: SENNOSIDES 8.8 MG/5 ML BULK BOTTLE GT SCH (10:41)
[2020-01-03] MEDS: OMEGA-3 ACID ETHYL ESTERS (FATTY-ACIDS) 1 GM CAPSULE (FP) PO SCH (10:42)
[2020-01-03] MEDS: AZITHROMYCIN IVPB 500 MG/250 ML BAG IVPB SCH (10:43)
[2020-01-03] MEDS: ENOXAPARIN NA (PORCINE) 40 MG/0.4 ML DISP.SYRIN SQ SCH (10:43)
[2020-01-03] MEDS: POLYETHYLENE GLYCOL 3350 119 GM BTL GT SCH ×2 (10:47→21:07)
--- NOTE | 2020-01-03 12:11 | PN ---
Physical Exam: SUBJECTIVE: Patient seen and examined. Nonverbal at baseline. OBJECTIVE: Vital Signs Period Temp Pulse Resp BP Sys/Oropeza Pulse Ox Last 24 Hr 97.9 F-99.1 F 62-107 18-20 101-127/54-78 93-99 GENERAL: Limited exam, congenital quadriplegia, nonverbal at baseline. HEAD: Normal with no signs of trauma. EYES: PERRL, extraocular movements intact, sclera anicteric, conjunctiva clear. No ptosis. ENT: Ears normal, nares patent, oropharynx clear without exudates, moist mucous membranes. NECK: Trachea midline, full range of motion, supple. LUNGS: On trach collar, 6L. Coarse breath sounds throughout. HEART: Regular rate and rhythm, S1, S2 without murmur, rub or gallop. ABDOMEN: Soft, nontender, nondistended, normoactive bowel sounds, no guarding, no rebound, no hepatosplenomegaly, no masses. EXTREMITIES: 2+ pulses, warm, well-perfused, no edema. NEUROLOGICAL: Muscles contracted at baseline. PSYCH: Normal mood, normal affect. SKIN: Warm, dry, normal turgor, no rashes or lesions noted Laboratory Results - last 24 hr 01/03/20 01/03/20 06:50 06:50 WBC 7.3 RBC 3.68 L Hgb 11.8 Hct 34.2 L MCV 92.9 MCH 32.1 MCHC 34.5 RDW 17.7 H Plt Count 227 D MPV 8.5 Absolute Neuts (auto) 4.7 Neutrophils % 64.2 Neutrophils % (Manual) 62.6 Band Neutrophils % 4.1 Lymphocytes % 22.8 Lymphocytes % (Manual) 20.2 D Monocytes % 9.6 Monocytes % (Manual) 10 D Eosinophils % 2.6 Eosinophils % (Manual) 2.0 D Basophils % 0.8 Basophils % (Manual) 0.0 Myelocytes % (Man) 0 Promyelocytes % (Man) 0 Blast Cells % (Manual) 0 Nucleated RBC % 1 H Metamyelocytes 0 Hypochromia 0 Platelet Estimate Normal Platelet Comment Present Polychromasia 1+ Poikilocytosis 0 Basophilic Stippling 1+ Anisocytosis 1+ Macrocytosis 1+ Sodium 142 Potassium 3.9 Chloride 106 Carbon Dioxide 28 Anion Gap 7 L BUN 15.8 Creatinine 0.6 Est GFR (CKD-EPI)AfAm 134.92 Est GFR (CKD-EPI)NonAf 116.41 Random Glucose 83 Calcium 8.8 Phosphorus 3.3 Magnesium 2.1 Total Bilirubin 1.0 AST 79 H ALT 73 H Alkaline Phosphatase 150 H Total Protein 6.4 Albumin 2.5 L Active Medications Generic Name Dose Route Start Last Admin Trade Name Freq PRN Reason Stop Dose Admin Albuterol/Ipratropium 1 amp 01/01/20 12:00 01/03/20 11:06 Duoneb - NEB 1 amp RQID [facility] Administration Baclofen 10 mg 12/31/19 22:00 01/03/20 06:29 Lioresal - GT 10 mg TID [facility] Administration Calcium Carbonate/Cholecalciferol 1 tab 01/02/20 10:00 01/03/20 10:39 Os-Mich 500+D - GT 1 tab BID [facility] Administration Cholecalciferol 2,000 unit 01/02/20 22:00 01/02/20 22:10 Vitamin D3 - GT 2,000 unit HS [facility] Administration Docusate Sodium 100 mg 01/02/20 08:07 01/03/20 10:39 Colace Liquid - GT 100 mg BID [facility] Administration Enoxaparin Sodium 40 mg 01/01/20 10:00 01/03/20 10:43 Lovenox - SQ 40 mg DAILY [facility] Administration Cefepime HCl 2 gm/ Dextrose 100 mls @ 200 mls/hr 12/31/19 18:00 01/03/20 10:44 IVPB 200 mls/hr Q8H-IV [facility] Administration Protocol Azithromycin 500 mg in 250 mls @ 250 mls/hr 01/01/20 10:00 01/03/20 10:43 Zithromax 500mg Ivpb (Pre-Docked) IVPB 250 mls/hr DAILY [facility] Administration Magnesium Hydroxide 30 ml 01/02/20 10:00 01/03/20 10:39 Milk Of Magnesia - GT 30 ml DAILY [facility] Administration Non-Formulary Medication 24 mcg 01/02/20 10:00 Lubiprostone [Amitiza] GT BID [facility] Nqibx-2-Ckfx Ethyl Esters 1 gm 01/02/20 10:00 01/03/20 10:42 Lovaza - PO Not Given BID [facility] Polyethylene Glycol 17 gm 01/02/20 08:07 01/03/20 10:47 Miralax (For Daily Use) - GT 17 gm BID [facility] Administration Senna 17.6 mg 01/01/20 10:00 01/03/20 10:41 Senna Oral Solution - GT 17.6 mg DAILY [facility] Administration Simethicone 40 mg 12/31/19 22:00 01/03/20 06:29 Mylicon Liquid - GT 40 mg TID [facility] Administration ASSESSMENT/PLAN: Pt is a 49 year old male from [facility] with PMHx of cerebral palsy, intellectual disability (non-verbal), congenital quadriplegia, epilepsy, G-tube and tracheostomy presenting with SOB and hypoxia, admitted for hypoxia secondary to pneumonia. #Hypoxia 2/2 to pneumonia -Sputum culture prelim Pseudomonas, LFGNB -Resistance to Zosyn in the past; continue cefepime and azithro -93% on 6L O2 tracheal collar; maintain SpO2 > 90% -Follow up final sputum culture, blood culture; urine culture negative -frequent suctioning #Epilepsy -Per hx, no seizures since 1984, not on antiepileptics since 1994 #G-tube -On tube feeds PPx Lovenox 40mg SQ daily FEN -No standing fluids -Monitor electrolytes -G tube feeds Dispo Admitted tele. Visit type - Emergency Visit Emergency Visit: Yes ED Registration Date: 12/31/19 Care time: The patient presented to the Emergency Department on the above date and was hospitalized for further evaluation of their emergent condition. - New Patient This patient is new to me today: No - Critical Care Critical Care patient: No ATTENDING PHYSICIAN STATEMENT I saw and evaluated the patient. I reviewed the resident's note and discussed the case with the resident. I agree with the resident's findings and plan as documented. SUBJECTIVE: OBJECTIVE: ASSESSMENT AND PLAN:
--- NOTE | 2020-01-03 16:30 | PN ---
Teaching Attending Note Name of Resident: Saw George ATTENDING PHYSICIAN STATEMENT I saw and evaluated the patient. I reviewed the resident's note and discussed the case with the resident. I agree with the resident's findings and plan as documented. SUBJECTIVE: pt seen and examined OBJECTIVE: Last Vital Signs Temp Pulse Resp BP Pulse Ox 100.1 F H 91 H 18 143/71 95 01/03/20 13:41 01/03/20 13:41 01/03/20 13:41 01/03/20 13:41 01/03/20 10:00 GEN: alert, awake, not in apparent distress HEENT: Microcephalic, PERRLA, divergent squint Heart: regular, S1, S2, no m/r/g Lungs: Trach collar. Bilateral lower zone crackles and occasional wheeze. Abdomen: Soft, non-tender. G-tube site cleaned. Bowel Sounds normal Extremities: Bilateral UE/LE contractures. Neuro: Awake, not verbally responsive CBCD WBC 7.3 K/mm3 (4.0-10.0) 01/03/20 06:50 RBC 3.68 M/mm3 (4.00-5.60) L 01/03/20 06:50 Hgb 11.8 GM/dL (11.7-16.9) 01/03/20 06:50 Hct 34.2 % (35.4-49) L 01/03/20 06:50 MCV 92.9 fl (80-96) 01/03/20 06:50 MCHC 34.5 g/dl (32.0-35.9) 01/03/20 06:50 RDW 17.7 % (11.9-15.9) H 01/03/20 06:50 Plt Count 227 K/MM3 (134-434) D 01/03/20 06:50 MPV 8.5 fl (7.5-11.1) 01/03/20 06:50 CMP Sodium 142 mmol/L (136-145) 01/03/20 06:50 Potassium 3.9 mmol/L (3.5-5.1) 01/03/20 06:50 Chloride 106 mmol/L (98-107) 01/03/20 06:50 Carbon Dioxide 28 mmol/L (21-32) 01/03/20 06:50 Anion Gap 7 MMOL/L (8-16) L 01/03/20 06:50 BUN 15.8 mg/dL (7-18) 01/03/20 06:50 Creatinine 0.6 mg/dL (0.55-1.3) 01/03/20 06:50 Calcium 8.8 mg/dL (8.5-10.1) 01/03/20 06:50 Total Bilirubin 1.0 mg/dL (0.2-1) 01/03/20 06:50 AST 79 U/L (15-37) H 01/03/20 06:50 ALT 73 U/L (13-61) H 01/03/20 06:50 Alkaline Phosphatase 150 U/L (45-117) H 01/03/20 06:50 Total Protein 6.4 g/dl (6.4-8.2) 01/03/20 06:50 Albumin 2.5 g/dl (3.4-5.0) L 01/03/20 06:50 Active Medications Albuterol/Ipratropium (Duoneb -) 1 amp NEB RQID [facility] Last Admin: 01/03/20 11:06 Dose: 1 amp Documented by: Baclofen (Lioresal -) 10 mg GT TID [facility] Last Admin: 01/03/20 15:28 Dose: 10 mg Documented by: Calcium Carbonate/Cholecalciferol (Os-Mich 500+D -) 1 tab GT BID [facility] Last Admin: 01/03/20 10:39 Dose: 1 tab Documented by: Cholecalciferol (Vitamin D3 -) 2,000 unit GT HS [facility] Last Admin: 01/02/20 22:10 Dose: 2,000 unit Documented by: Docusate Sodium (Colace Liquid -) 100 mg GT BID [facility] Last Admin: 01/03/20 10:39 Dose: 100 mg Documented by: Enoxaparin Sodium (Lovenox -) 40 mg SQ DAILY [facility] Last Admin: 01/03/20 10:43 Dose: 40 mg Documented by: Cefepime HCl 2 gm/ Dextrose 100 mls @ 200 mls/hr IVPB Q8H-IV [facility]; Protocol Last Admin: 01/03/20 10:44 Dose: 200 mls/hr Documented by: Azithromycin (Zithromax 500mg Ivpb (Pre-Docked)) 500 mg in 250 mls @ 250 mls/hr IVPB DAILY [facility] Last Admin: 01/03/20 10:43 Dose: 250 mls/hr Documented by: Magnesium Hydroxide (Milk Of Magnesia -) 30 ml GT DAILY [facility] Last Admin: 01/03/20 10:39 Dose: 30 ml Documented by: Non-Formulary Medication (Lubiprostone [Amitiza]) 24 mcg GT BID [facility] Cygpb-9-Bclm Ethyl Esters (Lovaza -) 1 gm PO BID [facility] Last Admin: 01/03/20 10:42 Dose: Not Given Documented by: Polyethylene Glycol (Miralax (For Daily Use) -) 17 gm GT BID [facility] Last Admin: 01/03/20 10:47 Dose: 17 gm Documented by: Senna (Senna Oral Solution -) 17.6 mg GT DAILY [facility] Last Admin: 01/03/20 10:41 Dose: 17.6 mg Documented by: Simethicone (Mylicon Liquid -) 40 mg GT TID [facility] Last Admin: 01/03/20 15:28 Dose: 40 mg Documented by: ASSESSMENT AND PLAN: 49 year old male [place] resident with history of Cerebral Palsy, cognitive impairment (non-verbal), functional quadriplegia, epilepsy, s/p Trach and G- tube, send to ED for respiratory distress and hypoxia with reported SpO2 to 85% RA. # Acute Hypoxic Respiratory Failure and Sepsis secondary to Pneumonia Healthcare Acquired Sputum Cx pseudomonas, Enterobacter, citrobacter. Sensitive to zosyn, ceftazidime, aztreonam Leukocytosis resolving, had one episode of fever Supplemental O2 via Trach Abx per ID h/o Seizure Disorder Chronic Constipation/Fecal Impaction Cerebral Palsy/Functional Quadriplegia/Cognitive Impairment DVT Px - Lovenox SQ.
[2020-01-03] MEDS ORDERED: SCOPOLAMINE HYDROBROMIDE 1 PATCH PATCH.TD72 TD ONE (20:21)
[2020-01-03] MEDS: CHOLECALCIFEROL (VIT D3) 1,000 UNIT (25 MCG) TABLET GT SCH (21:07)
[2020-01-04] MEDS ORDERED: PT OWN MED DRAWER 7, Y5N ONE ×6 (01:42→22:28)
[2020-01-04] MEDS: CEFEPIME 2 GM in DEXTROSE 5%-WATER 100 ML IVPB SCH ×3 (02:11→17:27)
[2020-01-04] MEDS: SIMETHICONE 40 MG/0.6 ML BOTTLE GT SCH ×3 (05:43→22:30)
[2020-01-04] MEDS: BACLOFEN 10 MG TABLET (FP) GT SCH ×3 (05:43→22:29)
[2020-01-04 07:44] LABS: BASO % 0.9 % (0-2.0); EOS % 6.2 % (0-4.5); HEMATOCRIT 34.5 % (35.4-49); HEMOGLOBIN 11.7 GM/dL (11.7-16.9); LYMPH % 27.4 % (8-40); MCH 31.4 pg (25.7-33.7); MEAN CELL VOLUME 92.5 fl (80-96); MEAN PLT VOLUME 7.7 fl (7.5-11.1); NEUT % 53.5 % (42.8-82.8); PLATELET COUNT 244 K/MM3 (134-434); RBC 3.72 M/mm3 (4.00-5.60); RDW 17.1 % (11.9-15.9); WHITE BLOOD COUNT 6.5 K/mm3 (4.0-10.0)
[2020-01-04] MEDS: ALBUTEROL SO4 2.5/IPRATROPIUM 0.5 INH SOL 3 ML VIAL.NEB. NEB SCH ×4 (07:48→21:10)
[2020-01-04 08:17] LABS: ALBUMIN 2.5 g/dl (3.4-5.0); BILIRUBIN,TOTAL 0.7 mg/dL (0.2-1); BLOOD UREA NITROGEN 20.8 mg/dL (7-18); CALCIUM 8.7 mg/dL (8.5-10.1); CREATININE 0.5 mg/dL (0.55-1.3); MAGNESIUM 2.2 mg/dL (1.8-2.4); PHOSPHOROUS 4.2 mg/dL (2.5-4.9); TOT PROT 6.6 g/dl (6.4-8.2)
[2020-01-04 09:03] LABS: ANISOCYTOSIS 1+; MACROCYTOSIS 0; PLATELET ESTIMATE NORMAL
[2020-01-04] MEDS: POLYETHYLENE GLYCOL 3350 119 GM BTL GT SCH ×2 (09:51→22:30)
[2020-01-04] MEDS: ENOXAPARIN NA (PORCINE) 40 MG/0.4 ML DISP.SYRIN SQ SCH (09:55)
[2020-01-04] MEDS: SENNOSIDES 8.8 MG/5 ML BULK BOTTLE GT SCH (09:56)
[2020-01-04] MEDS: CALCIUM 500MG/VIT-D 200 UNITS COMBO TABLET (FP) GT SCH ×2 (09:56→22:29)
[2020-01-04] MEDS: DOCUSATE NA 100 MG/10 ML UNIT-DOSE CUPS GT SCH ×2 (09:56→22:29)
[2020-01-04] MEDS: MAGNESIUM HYDROX 2400MG/30ML ORAL SUSPENSION 30 ML CUP GT SCH (09:56)
[2020-01-04] MEDS: AZITHROMYCIN IVPB 500 MG/250 ML BAG IVPB SCH (11:05)
--- NOTE | 2020-01-04 14:10 | PN ---
Teaching Attending Note Name of Resident: Saw George ATTENDING PHYSICIAN STATEMENT I saw and evaluated the patient. I reviewed the resident's note and discussed the case with the resident. I agree with the resident's findings and plan as documented. SUBJECTIVE: pt seen and examined OBJECTIVE: Last Vital Signs Temp Pulse Resp BP Pulse Ox 98 F 74 18 132/77 99 01/04/20 13:31 01/04/20 13:31 01/04/20 13:31 01/04/20 13:31 01/04/20 10:00 GEN: alert, awake, not in apparent distress HEENT: Microcephalic, PERRLA, divergent squint Heart: regular, S1, S2, no m/r/g Lungs: Trach collar. Bilateral lower zone crackles and occasional wheeze. Abdomen: Soft, non-tender. G-tube site cleaned. Bowel Sounds normal Extremities: Bilateral UE/LE contractures. Neuro: Awake, not verbally responsive CBCD WBC 6.5 K/mm3 (4.0-10.0) 01/04/20 07:03 RBC 3.72 M/mm3 (4.00-5.60) L 01/04/20 07:03 Hgb 11.7 GM/dL (11.7-16.9) 01/04/20 07:03 Hct 34.5 % (35.4-49) L 01/04/20 07:03 MCV 92.5 fl (80-96) 01/04/20 07:03 MCHC 34.0 g/dl (32.0-35.9) 01/04/20 07:03 RDW 17.1 % (11.9-15.9) H 01/04/20 07:03 Plt Count 244 K/MM3 (134-434) 01/04/20 07:03 MPV 7.7 fl (7.5-11.1) 01/04/20 07:03 CMP Sodium 139 mmol/L (136-145) 01/04/20 07:03 Potassium 4.0 mmol/L (3.5-5.1) 01/04/20 07:03 Chloride 104 mmol/L (98-107) 01/04/20 07:03 Carbon Dioxide 29 mmol/L (21-32) 01/04/20 07:03 Anion Gap 6 MMOL/L (8-16) L 01/04/20 07:03 BUN 20.8 mg/dL (7-18) H 01/04/20 07:03 Creatinine 0.5 mg/dL (0.55-1.3) L 01/04/20 07:03 Calcium 8.7 mg/dL (8.5-10.1) 01/04/20 07:03 Total Bilirubin 0.7 mg/dL (0.2-1) 01/04/20 07:03 AST 87 U/L (15-37) H 01/04/20 07:03 ALT 65 U/L (13-61) H 01/04/20 07:03 Alkaline Phosphatase 141 U/L (45-117) H 01/04/20 07:03 Total Protein 6.6 g/dl (6.4-8.2) 01/04/20 07:03 Albumin 2.5 g/dl (3.4-5.0) L 01/04/20 07:03 Active Medications Albuterol/Ipratropium (Duoneb -) 1 amp NEB RQID [facility] Last Admin: 01/04/20 11:05 Dose: 1 amp Documented by: Baclofen (Lioresal -) 10 mg GT TID [facility] Last Admin: 01/04/20 14:08 Dose: 10 mg Documented by: Calcium Carbonate/Cholecalciferol (Os-Mich 500+D -) 1 tab GT BID [facility] Last Admin: 01/04/20 09:56 Dose: 1 tab Documented by: Cholecalciferol (Vitamin D3 -) 2,000 unit GT HS [facility] Last Admin: 01/03/20 21:07 Dose: 2,000 unit Documented by: Docusate Sodium (Colace Liquid -) 100 mg GT BID [facility] Last Admin: 01/04/20 09:56 Dose: 100 mg Documented by: Enoxaparin Sodium (Lovenox -) 40 mg SQ DAILY [facility] Last Admin: 01/04/20 09:55 Dose: 40 mg Documented by: Cefepime HCl 2 gm/ Dextrose 100 mls @ 200 mls/hr IVPB Q8H-IV [facility]; Protocol Last Admin: 01/04/20 09:56 Dose: 200 mls/hr Documented by: Azithromycin (Zithromax 500mg Ivpb (Pre-Docked)) 500 mg in 250 mls @ 250 mls/hr IVPB DAILY [facility] Last Admin: 09/17/20 11:05 Dose: 250 mls/hr Documented by: Magnesium Hydroxide (Milk Of Magnesia -) 30 ml GT DAILY [facility] Last Admin: 01/04/20 09:56 Dose: 30 ml Documented by: Polyethylene Glycol (Miralax (For Daily Use) -) 17 gm GT BID [facility] Last Admin: 01/04/20 09:51 Dose: 17 gm Documented by: Senna (Senna Oral Solution -) 17.6 mg GT DAILY [facility] Last Admin: 01/04/20 09:56 Dose: 17.6 mg Documented by: Simethicone (Mylicon Liquid -) 40 mg GT TID [facility] Last Admin: 01/04/20 14:08 Dose: 40 mg Documented by: ASSESSMENT AND PLAN: 49 year old male [place] resident with history of Cerebral Palsy, cognitive impairment (non-verbal), functional quadriplegia, epilepsy, s/p Trach and G- tube, send to ED for respiratory distress and hypoxia with reported SpO2 to 85% RA. # Acute Hypoxic Respiratory Failure and Sepsis secondary to Pneumonia Healthcare Acquired Sputum Cx pseudomonas, Enterobacter, citrobacter. Sensitive to zosyn, ceftazidime, aztreonam stable vitals, afebrile Supplemental O2 via Trach Abx per ID h/o Seizure Disorder Chronic Constipation/Fecal Impaction Cerebral Palsy/Functional Quadriplegia/Cognitive Impairment DVT Px - Lovenox SQ.
--- NOTE | 2020-01-04 14:11 | PN ---
Progress Note, Physician History of Present Illness: stable still with secretions noted from trach - Current Medication List Current Medications: Active Medications Albuterol/Ipratropium (Duoneb -) 1 amp NEB RQID [facility] Last Admin: 01/04/20 11:05 Dose: 1 amp Documented by: Baclofen (Lioresal -) 10 mg GT TID [facility] Last Admin: 01/04/20 14:08 Dose: 10 mg Documented by: Calcium Carbonate/Cholecalciferol (Os-Mich 500+D -) 1 tab GT BID [facility] Last Admin: 01/04/20 09:56 Dose: 1 tab Documented by: Cholecalciferol (Vitamin D3 -) 2,000 unit GT HS [facility] Last Admin: 01/03/20 21:07 Dose: 2,000 unit Documented by: Docusate Sodium (Colace Liquid -) 100 mg GT BID [facility] Last Admin: 01/04/20 09:56 Dose: 100 mg Documented by: Enoxaparin Sodium (Lovenox -) 40 mg SQ DAILY [facility] Last Admin: 01/04/20 09:55 Dose: 40 mg Documented by: Cefepime HCl 2 gm/ Dextrose 100 mls @ 200 mls/hr IVPB Q8H-IV [facility]; Protocol Last Admin: 01/04/20 09:56 Dose: 200 mls/hr Documented by: Azithromycin (Zithromax 500mg Ivpb (Pre-Docked)) 500 mg in 250 mls @ 250 mls/hr IVPB DAILY [facility] Last Admin: 01/04/20 11:05 Dose: 250 mls/hr Documented by: Magnesium Hydroxide (Milk Of Magnesia -) 30 ml GT DAILY [facility] Last Admin: 01/04/20 09:56 Dose: 30 ml Documented by: Polyethylene Glycol (Miralax (For Daily Use) -) 17 gm GT BID [facility] Last Admin: 01/04/20 09:51 Dose: 17 gm Documented by: Senna (Senna Oral Solution -) 17.6 mg GT DAILY [facility] Last Admin: 01/04/20 09:56 Dose: 17.6 mg Documented by: Simethicone (Mylicon Liquid -) 40 mg GT TID [facility] Last Admin: 01/04/20 14:08 Dose: 40 mg Documented by: - Objective Vital Signs: Vital Signs Temperature 98 F 01/04/20 13:31 Pulse Rate 74 01/04/20 13:31 Respiratory Rate 18 09/17/20 13:31 Blood Pressure 132/77 01/04/20 13:31 O2 Sat by Pulse Oximetry (%) 99 01/04/20 10:00 Constitutional: Yes: Calm Eyes: Yes: Conjunctiva Clear Neck: Yes: Supple, Trachea Midline Cardiovascular: Yes: Regular Rate and Rhythm Respiratory: Yes: Regular, CTA Bilaterally Musculoskeletal: Yes: WNL Extremities: Yes: WNL Neurological: Yes: Alert, Other Labs: CBC, BMP 01/04/20 07:03 01/04/20 07:03 INR, PTT INR 0.99 (0.83-1.09) 12/31/19 11:10 Assessment/Plan Problem List - Problems (1) Sepsis Code(s): A41.9 - SEPSIS, UNSPECIFIED ORGANISM Qualifiers: Sepsis type: sepsis due to unspecified organism Sepsis acute organ dysfunction status: with acute organ dysfunction Severe sepsis acute organ dysfunction type: acute respiratory failure Acute respiratory failure type: with hypoxia Severe sepsis shock status: without septic shock Qualified Code(s): A41.9 - Sepsis, unspecified organism; R65.20 - Severe sepsis without s eptic shock; J96.01 - Acute respiratory failure with hypoxia (2) Cerebral palsy Code(s): G80.9 - CEREBRAL PALSY, UNSPECIFIED (3) Functional quadriplegia Code(s): R53.2 - FUNCTIONAL QUADRIPLEGIA (4) PEG (percutaneous endoscopic gastrostomy) status Code(s): Z93.1 - GASTROSTOMY STATUS (5) Hypothermia Code(s): T68.XXXA - HYPOTHERMIA, INITIAL ENCOUNTER Qualifiers: (6) Pneumonia Code(s): J18.9 - PNEUMONIA, UNSPECIFIED ORGANISM Assessment/Plan 49 y.o. male with PMH of Cerebral palsy, congenitial quadriplegia, seizure d.o., hx of respiratory failure s/p trach/GT sent from [place] for respiratory distress and hypoxia. PNA Sepsis Acute hypoxemic respiratory failure Leukocytosis Hypothermia Previous hx of Intubation -with trach collar Cerebral palsy Functional Quadriplegia Seizure d.o. s/p GT plan cx results noted c abx await for identification of organisms rest as per the team
--- NOTE | 2020-01-04 14:12 | PN ---
Progress Note, Physician History of Present Illness: still with nlot of secretions coughing a lot - Current Medication List Current Medications: Active Medications Albuterol/Ipratropium (Duoneb -) 1 amp NEB RQID [facility] Last Admin: 01/04/20 11:05 Dose: 1 amp Documented by: Baclofen (Lioresal -) 10 mg GT TID [facility] Last Admin: 01/04/20 14:08 Dose: 10 mg Documented by: Calcium Carbonate/Cholecalciferol (Os-Mich 500+D -) 1 tab GT BID [facility] Last Admin: 01/04/20 09:56 Dose: 1 tab Documented by: Cholecalciferol (Vitamin D3 -) 2,000 unit GT HS [facility] Last Admin: 01/03/20 21:07 Dose: 2,000 unit Documented by: Docusate Sodium (Colace Liquid -) 100 mg GT BID [facility] Last Admin: 01/04/20 09:56 Dose: 100 mg Documented by: Enoxaparin Sodium (Lovenox -) 40 mg SQ DAILY [facility] Last Admin: 01/04/20 09:55 Dose: 40 mg Documented by: Cefepime HCl 2 gm/ Dextrose 100 mls @ 200 mls/hr IVPB Q8H-IV [facility]; Protocol Last Admin: 01/04/20 09:56 Dose: 200 mls/hr Documented by: Azithromycin (Zithromax 500mg Ivpb (Pre-Docked)) 500 mg in 250 mls @ 250 mls/hr IVPB DAILY [facility] Last Admin: 01/04/20 11:05 Dose: 250 mls/hr Documented by: Magnesium Hydroxide (Milk Of Magnesia -) 30 ml GT DAILY [facility] Last Admin: 01/04/20 09:56 Dose: 30 ml Documented by: Polyethylene Glycol (Miralax (For Daily Use) -) 17 gm GT BID [facility] Last Admin: 01/04/20 09:51 Dose: 17 gm Documented by: Senna (Senna Oral Solution -) 17.6 mg GT DAILY [facility] Last Admin: 01/04/20 09:56 Dose: 17.6 mg Documented by: Simethicone (Mylicon Liquid -) 40 mg GT TID [facility] Last Admin: 01/04/20 14:08 Dose: 40 mg Documented by: - Objective Vital Signs: Vital Signs Temperature 98 F 01/04/20 13:31 Pulse Rate 74 01/04/20 13:31 Respiratory Rate 18 01/04/20 13:31 Blood Pressure 132/77 01/04/20 13:31 O2 Sat by Pulse Oximetry (%) 99 01/04/20 10:00 Constitutional: Yes: No Distress, Calm Neck: Yes: Supple, Other (trach in place) Respiratory: Yes: Other (secretions) Gastrointestinal: Yes: Normal Bowel Sounds, Soft Musculoskeletal: Yes: WNL Extremities: Yes: WNL Neurological: Yes: Alert Labs: CBC, BMP 01/04/20 07:03 01/04/20 07:03 INR, PTT INR 0.99 (0.83-1.09) 12/31/19 11:10 Assessment/Plan Problem List - Problems (1) Sepsis Code(s): A41.9 - SEPSIS, UNSPECIFIED ORGANISM Qualifiers: Sepsis type: sepsis due to unspecified organism Sepsis acute organ dysfunction status: with acute organ dysfunction Severe sepsis acute organ dysfunction type: acute respiratory failure Acute respiratory failure type: with hypoxia Severe sepsis shock status: without septic shock Qualified Code(s): A41.9 - Sepsis, unspecified organism; R65.20 - Severe sepsis without septic shock; J96.01 - Acute respiratory failure with hypoxia (2) Cerebral palsy Code(s): G80.9 - CEREBRAL PALSY, UNSPECIFIED (3) Functional quadriplegia Code(s): R53.2 - FUNCTIONAL QUADRIPLEGIA (4) PEG (percutaneous endoscopic gastrostomy) status Code(s): Z93.1 - GASTROSTOMY STATUS (5) Hypothermia Code(s): T68.XXXA - HYPOTHERMIA, INITIAL ENCOUNTER Qualifiers: (6) Pneumonia Code(s): J18.9 - PNEUMONIA, UNSPECIFIED ORGANISM Assessment/Plan 49 y.o. male with PMH of Cerebral palsy, congenitial quadriplegia, seizure d.o., hx of respiratory failure s/p trach/GT sent from [place] for respiratory distress and hypoxia. PNA Sepsis Acute hypoxemic respiratory failure Leukocytosis Hypothermia Previous hx of Intubation -with trach collar Cerebral palsy Functional Quadriplegia Seizure d.o. s/p GT plan cx results noted ct abx suctioning rest as per the team
--- NOTE | 2020-01-04 15:15 | PN ---
Physical Exam: SUBJECTIVE: Patient seen and examined. Nonverbal at baseline. Improved breath sounds OBJECTIVE: Vital Signs Period Temp Pulse Resp BP Sys/Oropeza Pulse Ox Last 24 Hr 98 F-98.9 F 55-88 18-26 112-132/60-91 95-99 GENERAL: Limited exam, congenital quadriplegia, nonverbal at baseline. HEAD: Normal with no signs of trauma. EYES: PERRL, extraocular movements intact, sclera anicteric, conjunctiva clear. No ptosis. ENT: Ears normal, nares patent, oropharynx clear without exudates, moist mucous membranes. NECK: Trachea midline, full range of motion, supple. LUNGS: On trach collar, 6L. Coarse breath sounds throughout. HEART: Regular rate and rhythm, S1, S2 without murmur, rub or gallop. ABDOMEN: Soft, nontender, nondistended, normoactive bowel sounds, no guarding, no rebound, no hepatosplenomegaly, no masses. EXTREMITIES: 2+ pulses, warm, well-perfused, no edema. NEUROLOGICAL: Muscles contracted at baseline. PSYCH: Normal mood, normal affect. SKIN: Warm, dry, normal turgor, no rashes or lesions noted Laboratory Results - last 24 hr 01/04/20 01/04/20 07:03 07:03 WBC 6.5 RBC 3.72 L Hgb 11.7 Hct 34.5 L MCV 92.5 MCH 31.4 MCHC 34.0 RDW 17.1 H Plt Count 244 MPV 7.7 Absolute Neuts (auto) 3.5 Neutrophils % 53.5 Neutrophils % (Manual) 50.0 D Band Neutrophils % 0.0 Lymphocytes % 27.4 D Lymphocytes % (Manual) 30.0 D Monocytes % 12.0 H Monocytes % (Manual) 13 H Eosinophils % 6.2 H D Eosinophils % (Manual) 7.0 H D Basophils % 0.9 Basophils % (Manual) 0.0 Myelocytes % (Man) 0 Promyelocytes % (Man) 0 Blast Cells % (Manual) 0 Nucleated RBC % 0 Metamyelocytes 0 Hypochromia 0 Platelet Estimate Normal Polychromasia 1+ Poikilocytosis 0 Anisocytosis 1+ Microcytosis 1+ Macrocytosis 0 Sodium 139 Potassium 4.0 Chloride 104 Carbon Dioxide 29 Anion Gap 6 L BUN 20.8 H Creatinine 0.5 L Est GFR (CKD-EPI)AfAm 145.42 Est GFR (CKD-EPI)NonAf 125.47 Random Glucose 95 Calcium 8.7 Phosphorus 4.2 Magnesium 2.2 Total Bilirubin 0.7 AST 87 H ALT 65 H Alkaline Phosphatase 141 H Total Protein 6.6 Albumin 2.5 L Active Medications Generic Name Dose Route Start Last Admin Trade Name Freq PRN Reason Stop Dose Admin Albuterol/Ipratropium 1 amp 01/01/20 12:00 01/04/20 11:05 Duoneb - NEB 1 amp RQID [facility] Administration Baclofen 10 mg 12/31/19 22:00 01/04/20 14:08 Lioresal - GT 10 mg TID [facility] Administration Calcium Carbonate/Cholecalciferol 1 tab 01/02/20 10:00 01/04/20 09:56 Os-Mich 500+D - GT 1 tab BID [facility] Administration Cholecalciferol 2,000 unit 01/02/20 22:00 01/03/20 21:07 Vitamin D3 - GT 2,000 unit HS [facility] Administration Docusate Sodium 100 mg 01/02/20 08:07 01/04/20 09:56 Colace Liquid - GT 100 mg BID [facility] Administration Enoxaparin Sodium 40 mg 01/01/20 10:00 01/04/20 09:55 Lovenox - SQ 40 mg DAILY [facility] Administration Cefepime HCl 2 gm/ Dextrose 100 mls @ 200 mls/hr 12/31/19 18:00 01/04/20 09:56 IVPB 200 mls/hr Q8H-IV [facility] Administration Protocol Azithromycin 500 mg in 250 mls @ 250 mls/hr 01/01/20 10:00 01/04/20 11:05 Zithromax 500mg Ivpb (Pre-Docked) IVPB 250 mls/hr DAILY [facility] Administration Magnesium Hydroxide 30 ml 01/02/20 10:00 01/04/20 09:56 Milk Of Magnesia - GT 30 ml DAILY [facility] Administration Polyethylene Glycol 17 gm 01/02/20 08:07 01/04/20 09:51 Miralax (For Daily Use) - GT 17 gm BID [facility] Administration Senna 17.6 mg 01/01/20 10:00 01/04/20 09:56 Senna Oral Solution - GT 17.6 mg DAILY [facility] Administration Simethicone 40 mg 12/31/19 22:00 01/04/20 14:08 Mylicon Liquid - GT 40 mg TID [facility] Administration ASSESSMENT/PLAN: Pt is a 49 year old male from [facility] with PMHx of cerebral palsy, intellectual disability (non-verbal), congenital quadriplegia, epilepsy, G-tube and tracheostomy presenting with SOB and hypoxia, admitted for hypoxia secondary to pneumonia. #Hypoxia 2/2 to pneumonia -Sputum culture pseudomonas, enterobacter, citrobacter -Resistance to Zosyn in the past; continue cefepime and azithro -98% on 6L O2 tracheal collar; maintain SpO2 > 90% -Follow up final sputum culture, blood culture; urine culture negative -frequent suctioning #Epilepsy -Per hx, no seizures since 1984, not on antiepileptics since 1994 #G-tube -On tube feeds PPx Lovenox 40mg SQ daily FEN -No standing fluids -Monitor electrolytes -G tube feeds Dispo Admitted tele. Visit type - Emergency Visit Emergency Visit: No - New Patient This patient is new to me today: No - Critical Care Critical Care patient: No ATTENDING PHYSICIAN STATEMENT I saw and evaluated the patient. I reviewed the resident's note and discussed the case with the resident. I agree with the resident's findings and plan as documented. SUBJECTIVE: OBJECTIVE: ASSESSMENT AND PLAN:
[2020-01-04] MEDS: CHOLECALCIFEROL (VIT D3) 1,000 UNIT (25 MCG) TABLET GT SCH (22:29)
[2020-01-05] MEDS ORDERED: PT OWN MED DRAWER 7, Y5N ONE ×7 (01:24→20:52)
[2020-01-05] MEDS: CEFEPIME 2 GM in DEXTROSE 5%-WATER 100 ML IVPB SCH ×3 (01:29→17:45)
[2020-01-05] MEDS: SIMETHICONE 40 MG/0.6 ML BOTTLE GT SCH ×3 (05:15→21:00)
[2020-01-05] MEDS: BACLOFEN 10 MG TABLET (FP) GT SCH ×3 (05:16→20:59)
[2020-01-05] MEDS: ALBUTEROL SO4 2.5/IPRATROPIUM 0.5 INH SOL 3 ML VIAL.NEB. NEB SCH ×4 (07:43→20:54)
[2020-01-05 08:12] LABS: HEMATOCRIT 35.3 % (35.4-49); HEMOGLOBIN 11.7 GM/dL (11.7-16.9); MCH 30.9 pg (25.7-33.7); MEAN CELL VOLUME 93.8 fl (80-96); MEAN PLT VOLUME 7.8 fl (7.5-11.1); PLATELET COUNT 255 K/MM3 (134-434); RBC 3.77 M/mm3 (4.00-5.60); RDW 17.4 % (11.9-15.9); WHITE BLOOD COUNT 7.6 K/mm3 (4.0-10.0)
[2020-01-05 08:18] LABS: POTASSIUM 3.8 mmol/L (3.5-5.1)
[2020-01-05 08:43] LABS: BLOOD UREA NITROGEN 21.4 mg/dL (7-18); CALCIUM 8.8 mg/dL (8.5-10.1); CREATININE 0.4 mg/dL (0.55-1.3); MAGNESIUM 2.3 mg/dL (1.8-2.4); PHOSPHOROUS 3.5 mg/dL (2.5-4.9)
[2020-01-05] MEDS: SENNOSIDES 8.8 MG/5 ML BULK BOTTLE GT SCH (09:02)
[2020-01-05] MEDS: DOCUSATE NA 100 MG/10 ML UNIT-DOSE CUPS GT SCH ×2 (09:02→20:59)
[2020-01-05] MEDS: MAGNESIUM HYDROX 2400MG/30ML ORAL SUSPENSION 30 ML CUP GT SCH (09:02)
[2020-01-05] MEDS: CALCIUM 500MG/VIT-D 200 UNITS COMBO TABLET (FP) GT SCH ×2 (09:02→20:59)
[2020-01-05] MEDS: ENOXAPARIN NA (PORCINE) 40 MG/0.4 ML DISP.SYRIN SQ SCH (09:02)
[2020-01-05] MEDS: AZITHROMYCIN IVPB 500 MG/250 ML BAG IVPB SCH (09:10)
[2020-01-05] MEDS: POLYETHYLENE GLYCOL 3350 119 GM BTL GT SCH ×2 (09:10→21:00)
--- NOTE | 2020-01-05 11:46 | PN ---
Teaching Attending Note Name of Resident: Saw George ATTENDING PHYSICIAN STATEMENT I saw and evaluated the patient. I reviewed the resident's note and discussed the case with the resident. I agree with the resident's findings and plan as documented. SUBJECTIVE: pt seen and examined OBJECTIVE: Last Vital Signs Temp Pulse Resp BP Pulse Ox 98.5 F 70 20 122/77 98 01/05/20 10:00 01/05/20 10:00 01/05/20 10:00 01/05/20 10:00 01/05/20 10:00 GEN: alert, awake, not in apparent distress HEENT: Microcephalic, PERRLA, divergent squint Heart: regular, S1, S2, no m/r/g Lungs: Trach collar. Bilateral lower zone crackles and occasional wheeze. Abdomen: Soft, non-tender. G-tube site cleaned. Bowel Sounds normal Extremities: Bilateral UE/LE contractures. Neuro: Awake, not verbally responsive CBCD WBC 7.6 K/mm3 (4.0-10.0) 01/05/20 06:15 RBC 3.77 M/mm3 (4.00-5.60) L 01/05/20 06:15 Hgb 11.7 GM/dL (11.7-16.9) 01/05/20 06:15 Hct 35.3 % (35.4-49) L 01/05/20 06:15 MCV 93.8 fl (80-96) 01/05/20 06:15 MCHC 33.0 g/dl (32.0-35.9) 01/05/20 06:15 RDW 17.4 % (11.9-15.9) H 01/05/20 06:15 Plt Count 255 K/MM3 (134-434) 01/05/20 06:15 MPV 7.8 fl (7.5-11.1) 01/05/20 06:15 CMP Sodium 137 mmol/L (136-145) 01/05/20 06:15 Potassium 3.8 mmol/L (3.5-5.1) 01/05/20 06:15 Chloride 102 mmol/L (98-107) 01/05/20 06:15 Carbon Dioxide 29 mmol/L (21-32) 01/05/20 06:15 Anion Gap 7 MMOL/L (8-16) L 01/05/20 06:15 BUN 21.4 mg/dL (7-18) H 01/05/20 06:15 Creatinine 0.4 mg/dL (0.55-1.3) L 01/05/20 06:15 Calcium 8.8 mg/dL (8.5-10.1) 01/05/20 06:15 Total Bilirubin 0.7 mg/dL (0.2-1) 01/04/20 07:03 AST 87 U/L (15-37) H 01/04/20 07:03 ALT 65 U/L (13-61) H 01/04/20 07:03 Alkaline Phosphatase 141 U/L (45-117) H 01/04/20 07:03 Total Protein 6.6 g/dl (6.4-8.2) 01/04/20 07:03 Albumin 2.5 g/dl (3.4-5.0) L 01/04/20 07:03 ASSESSMENT AND PLAN: 49 year old male [place] resident with history of Cerebral Palsy, cognitive impairment (non-verbal), functional quadriplegia, epilepsy, s/p Trach and G- tube, send to ED for respiratory distress and hypoxia with reported SpO2 to 85% RA. # Acute Hypoxic Respiratory Failure and Sepsis secondary to Pneumonia Healthcare Acquired Sputum Cx pseudomonas, Enterobacter, citrobacter. Sensitive to zosyn, ceftazidime, aztreonam stable vitals, afebrile Supplemental O2 via Trach Abx per ID h/o Seizure Disorder Chronic Constipation/Fecal Impaction Cerebral Palsy/Functional Quadriplegia/Cognitive Impairment DVT Px - Lovenox SQ.
--- NOTE | 2020-01-05 12:00 | PN ---
Progress Note, Physician - Current Medication List Current Medications: Active Medications Albuterol/Ipratropium (Duoneb -) 1 amp NEB RQID [facility] Last Admin: 01/05/20 11:30 Dose: 1 amp Documented by: Baclofen (Lioresal -) 10 mg GT TID [facility] Last Admin: 01/05/20 05:16 Dose: 10 mg Documented by: Calcium Carbonate/Cholecalciferol (Os-Mich 500+D -) 1 tab GT BID [facility] Last Admin: 01/05/20 09:02 Dose: 1 tab Documented by: Cholecalciferol (Vitamin D3 -) 2,000 unit GT HS [facility] Last Admin: 01/04/20 22:29 Dose: 2,000 unit Documented by: Docusate Sodium (Colace Liquid -) 100 mg GT BID [facility] Last Admin: 01/05/20 09:02 Dose: 100 mg Documented by: Enoxaparin Sodium (Lovenox -) 40 mg SQ DAILY [facility] Last Admin: 01/05/20 09:02 Dose: 40 mg Documented by: Cefepime HCl 2 gm/ Dextrose 100 mls @ 200 mls/hr IVPB Q8H-IV [facility]; Protocol Last Admin: 01/05/20 09:02 Dose: 200 mls/hr Documented by: Azithromycin (Zithromax 500mg Ivpb (Pre-Docked)) 500 mg in 250 mls @ 250 mls/hr IVPB DAILY [facility] Last Admin: 01/05/20 09:10 Dose: 250 mls/hr Documented by: Magnesium Hydroxide (Milk Of Magnesia -) 30 ml GT DAILY [facility] Last Admin: 01/05/20 09:02 Dose: 30 ml Documented by: Polyethylene Glycol (Miralax (For Daily Use) -) 17 gm GT BID [facility] Last Admin: 01/05/20 09:10 Dose: 17 gm Documented by: Senna (Senna Oral Solution -) 17.6 mg GT DAILY [facility] Last Admin: 01/05/20 09:02 Dose: 17.6 mg Documented by: Simethicone (Mylicon Liquid -) 40 mg GT TID [facility] Last Admin: 01/05/20 05:15 Dose: 40 mg Documented by: - Objective Vital Signs: Vital Signs Temperature 98.5 F 01/05/20 10:00 Pulse Rate 70 01/05/20 10:00 Respiratory Rate 20 01/05/20 10:00 Blood Pressure 122/77 01/05/20 10:00 O2 Sat by Pulse Oximetry (%) 98 01/05/20 10:00 Labs: CBC, BMP 01/05/20 06:15 01/05/20 06:15 INR, PTT INR 0.99 (0.83-1.09) 12/31/19 11:10
--- NOTE | 2020-01-05 16:08 | PN ---
Physical Exam: SUBJECTIVE: Patient seen and examined OBJECTIVE: Vital Signs Period Temp Pulse Resp BP Sys/Oropeza Pulse Ox Last 24 Hr 98 F-98.6 F 64-83 18-20 122-132/71-92 98-100 GENERAL: The patient is awake, nonverbal at baseline. HEENT: Microcephalic, PERRLA ENT: Ears normal, nares patent, oropharynx clear without exudates, moist mucous membranes. NECK: Trachea midline, full range of motion, supple. LUNGS: Breath sounds equal, no crackles, no accessory muscle use. Mild crackles. Occasional wheezes. HEART: Regular rate and rhythm, S1, S2 without murmur, rub or gallop. ABDOMEN: Soft, nontender, nondistended. G-tube intact. EXTREMITIES: B/L upper and lower extremity contractures. NEUROLOGICAL: Cranial nerves II through XII grossly intact. Nonverbal at baseline. PSYCH: Normal mood, normal affect. SKIN: Warm, dry, normal turgor, no rashes or lesions noted Laboratory Results - last 24 hr 01/05/20 01/05/20 06:15 06:15 WBC 7.6 RBC 3.77 L Hgb 11.7 Hct 35.3 L MCV 93.8 MCH 30.9 MCHC 33.0 RDW 17.4 H Plt Count 255 MPV 7.8 Sodium 137 Potassium 3.8 Chloride 102 Carbon Dioxide 29 Anion Gap 7 L BUN 21.4 H Creatinine 0.4 L Est GFR (CKD-EPI)AfAm 159.39 Est GFR (CKD-EPI)NonAf 137.52 Random Glucose 99 Calcium 8.8 Phosphorus 3.5 Magnesium 2.3 Active Medications Generic Name Dose Route Start Last Admin Trade Name Yadielq PRN Reason Stop Dose Admin Albuterol/Ipratropium 1 amp 01/01/20 12:00 01/05/20 15:37 Duoneb - NEB 1 amp RQID [facility] Administration Baclofen 10 mg 12/31/19 22:00 01/05/20 13:23 Lioresal - GT 10 mg TID [facility] Administration Calcium Carbonate/Cholecalciferol 1 tab 01/02/20 10:00 01/05/20 09:02 Os-[place] 500+D - GT 1 tab BID [facility] Administration Cholecalciferol 2,000 unit 01/02/20 22:00 01/04/20 22:29 Vitamin D3 - GT 2,000 unit HS [facility] Administration Docusate Sodium 100 mg 01/02/20 08:07 01/05/20 09:02 Colace Liquid - GT 100 mg BID [facility] Administration Enoxaparin Sodium 40 mg 01/01/20 10:00 01/05/20 09:02 Lovenox - SQ 40 mg DAILY [facility] Administration Cefepime HCl 2 gm/ Dextrose 100 mls @ 200 mls/hr 12/31/19 18:00 01/05/20 09:02 IVPB 200 mls/hr Q8H-IV [facility] Administration Protocol Azithromycin 500 mg in 250 mls @ 250 mls/hr 01/01/20 10:00 01/05/20 09:10 Zithromax 500mg Ivpb (Pre-Docked) IVPB 250 mls/hr DAILY [facility] Administration Magnesium Hydroxide 30 ml 01/02/20 10:00 01/05/20 09:02 Milk Of Magnesia - GT 30 ml DAILY [facility] Administration Polyethylene Glycol 17 gm 01/02/20 08:07 01/05/20 09:10 Miralax (For Daily Use) - GT 17 gm BID [facility] Administration Senna 17.6 mg 01/01/20 10:00 01/05/20 09:02 Senna Oral Solution - GT 17.6 mg DAILY [facility] Administration Simethicone 40 mg 12/31/19 22:00 01/05/20 13:23 Mylicon Liquid - GT 40 mg TID [facility] Administration ASSESSMENT/PLAN: #Hypoxia 2/2 to pneumonia -Sputum culture pseudomonas, enterobacter, citrobacter -Resistance to Zosyn in the past; continue cefepime and azithro -98% on 6L O2 tracheal collar; maintain SpO2 > 90% -Follow up final sputum culture, blood culture; urine culture negative -frequent suctioning #Epilepsy -Per hx, no seizures since 1984, not on antiepileptics since 1994 #G-tube -On tube feeds PPx Lovenox 40mg SQ daily FEN -No standing fluids -Monitor electrolytes -G tube feeds Dispo Admitted tele. Visit type - Emergency Visit Emergency Visit: Yes ED Registration Date: 12/31/19 Care time: The patient presented to the Emergency Department on the above date and was hospitalized for further evaluation of their emergent condition. - New Patient This patient is new to me today: No - Critical Care Critical Care patient: No ATTENDING PHYSICIAN STATEMENT I saw and evaluated the patient. I reviewed the resident's note and discussed the case with the resident. I agree with the resident's findings and plan as documented. SUBJECTIVE: OBJECTIVE: ASSESSMENT AND PLAN:
[2020-01-05] MEDS: CHOLECALCIFEROL (VIT D3) 1,000 UNIT (25 MCG) TABLET GT SCH (21:00)
[2020-01-06] MEDS ORDERED: PT OWN MED DRAWER 7, Y5N ONE ×6 (01:41→21:43)
[2020-01-06] MEDS: CEFEPIME 2 GM in DEXTROSE 5%-WATER 100 ML IVPB SCH ×3 (01:44→17:05)
[2020-01-06] MEDS: BACLOFEN 10 MG TABLET (FP) GT SCH ×3 (05:29→22:06)
[2020-01-06] MEDS: SIMETHICONE 40 MG/0.6 ML BOTTLE GT SCH ×3 (05:29→22:06)
[2020-01-06 07:12] LABS: HEMOGLOBIN 11.2 GM/dL (11.7-16.9); MCH 31.7 pg (25.7-33.7); MEAN CELL VOLUME 93.1 fl (80-96); MEAN PLT VOLUME 7.6 fl (7.5-11.1); PLATELET COUNT 268 K/MM3 (134-434); RBC 3.54 M/mm3 (4.00-5.60); RDW 17.2 % (11.9-15.9); WHITE BLOOD COUNT 7.3 K/mm3 (4.0-10.0)
[2020-01-06 07:35] LABS: ALBUMIN 2.8 g/dl (3.4-5.0); BILIRUBIN,TOTAL 1.1 mg/dL (0.2-1); BLOOD UREA NITROGEN 14.6 mg/dL (7-18); CALCIUM 8.1 mg/dL (8.5-10.1); CREATININE 0.4 mg/dL (0.55-1.3); MAGNESIUM 2.2 mg/dL (1.8-2.4); PHOSPHOROUS 3.1 mg/dL (2.5-4.9); POTASSIUM 3.6 mmol/L (3.5-5.1); TOT PROT 6.5 g/dl (6.4-8.2)
[2020-01-06] MEDS: ALBUTEROL SO4 2.5/IPRATROPIUM 0.5 INH SOL 3 ML VIAL.NEB. NEB SCH (08:03)
[2020-01-06] MEDS: DOCUSATE NA 100 MG/10 ML UNIT-DOSE CUPS GT SCH ×2 (09:04→22:06)
[2020-01-06] MEDS: MAGNESIUM HYDROX 2400MG/30ML ORAL SUSPENSION 30 ML CUP GT SCH (09:04)
[2020-01-06] MEDS: CALCIUM 500MG/VIT-D 200 UNITS COMBO TABLET (FP) GT SCH ×2 (09:04→22:06)
[2020-01-06] MEDS: ENOXAPARIN NA (PORCINE) 40 MG/0.4 ML DISP.SYRIN SQ SCH (09:04)
[2020-01-06] MEDS: SENNOSIDES 8.8 MG/5 ML BULK BOTTLE GT SCH (09:04)
[2020-01-06] MEDS: POLYETHYLENE GLYCOL 3350 119 GM BTL GT SCH ×2 (09:04→22:05)
[2020-01-06] MEDS: AZITHROMYCIN IVPB 500 MG/250 ML BAG IVPB SCH (10:08)
--- NOTE | 2020-01-06 11:52 | PN ---
Physical Exam: SUBJECTIVE: Patient seen and examined OBJECTIVE: Vital Signs Period Temp Pulse Resp BP Sys/Oropeza Pulse Ox Last 24 Hr 97.4 F-98.3 F 49-89 18-22 106-152/70-98 97-98 GEN: alert, awake, not in apparent distress HEENT: Microcephalic, PERRLA, divergent squint Heart: regular, S1, S2, no m/r/g Lungs: Trach collar. Bilateral lower zone crackles and occasional wheeze. Abdomen: Soft, non-tender. G-tube site cleaned. Bowel Sounds normal Extremities: Bilateral UE/LE contractures. Neuro: Awake, not verbally responsive Laboratory Results - last 24 hr 01/06/20 01/06/20 06:22 06:22 WBC 7.3 RBC 3.54 L Hgb 11.2 L Hct 33.0 L MCV 93.1 MCH 31.7 MCHC 34.0 RDW 17.2 H Plt Count 268 MPV 7.6 Sodium 136 Potassium 3.6 Chloride 101 Carbon Dioxide 31 Anion Gap 5 L BUN 14.6 Creatinine 0.4 L Est GFR (CKD-EPI)AfAm 159.39 Est GFR (CKD-EPI)NonAf 137.52 Random Glucose 102 Calcium 8.1 L Phosphorus 3.1 Magnesium 2.2 Total Bilirubin 1.1 H AST 63 H ALT 57 Alkaline Phosphatase 125 H Total Protein 6.5 Albumin 2.8 L Active Medications Generic Name Dose Route Start Last Admin Trade Name Freq PRN Reason Stop Dose Admin Albuterol/Ipratropium 1 amp 01/01/20 12:00 01/06/20 08:03 Duoneb - NEB 1 amp RQID [facility] Administration Baclofen 10 mg 12/31/19 22:00 01/06/20 05:29 Lioresal - GT 10 mg TID [facility] Administration Calcium Carbonate/Cholecalciferol 1 tab 01/02/20 10:00 01/06/20 09:04 Os-Mich 500+D - GT 1 tab BID [facility] Administration Cholecalciferol 2,000 unit 01/02/20 22:00 01/05/20 21:00 Vitamin D3 - GT 2,000 unit HS [facility] Administration Docusate Sodium 100 mg 01/02/20 08:07 01/06/20 09:04 Colace Liquid - GT 100 mg BID [facility] Administration Enoxaparin Sodium 40 mg 01/01/20 10:00 01/06/20 09:04 Lovenox - SQ 40 mg DAILY [facility] Administration Cefepime HCl 2 gm/ Dextrose 100 mls @ 200 mls/hr 12/31/19 18:00 01/06/20 09:05 IVPB 200 mls/hr Q8H-IV [facility] Administration Protocol Azithromycin 500 mg in 250 mls @ 250 mls/hr 01/01/20 10:00 01/06/20 10:08 Zithromax 500mg Ivpb (Pre-Docked) IVPB 250 mls/hr DAILY [facility] Administration Magnesium Hydroxide 30 ml 01/02/20 10:00 01/06/20 09:04 Milk Of Magnesia - GT 30 ml DAILY [facility] Administration Polyethylene Glycol 17 gm 01/02/20 08:07 01/06/20 09:04 Miralax (For Daily Use) - GT 17 gm BID [facility] Administration Senna 17.6 mg 01/01/20 10:00 01/06/20 09:04 Senna Oral Solution - GT 17.6 mg DAILY [facility] Administration Simethicone 40 mg 12/31/19 22:00 01/06/20 05:29 Mylicon Liquid - GT 40 mg TID [facility] Administration ASSESSMENT/PLAN: 49 year old male [place] resident with history of Cerebral Palsy, cognitive impairment (non-verbal), functional quadriplegia, epilepsy, s/p Trach and G- tube, send to ED for respiratory distress and hypoxia. # Acute Hypoxic Respiratory Failure and Sepsis secondary to Pneumonia Healthcare Acquired Sputum Cx pseudomonas, Enterobacter, citrobacter. Sensitive to zosyn, ceftazidime, aztreonam stable vitals, afebrile Supplemental O2 via Trach, titrate down as tolerated Abx per ID h/o Seizure Disorder Chronic Constipation/Fecal Impaction Cerebral Palsy/Functional Quadriplegia/Cognitive Impairment DVT Px - Lovenox SQ. Visit type - Emergency Visit Emergency Visit: Yes ED Registration Date: 12/31/19 Care time: The patient presented to the Emergency Department on the above date and was hospitalized for further evaluation of their emergent condition. - New Patient This patient is new to me today: No - Critical Care Critical Care patient: No - Discharge Referral Referred to [facility] Med P.C.: No
--- NOTE | 2020-01-06 14:09 | PN ---
Progress Note, Physician - Current Medication List Current Medications: Active Medications Baclofen (Lioresal -) 10 mg GT TID [facility] Last Admin: 01/06/20 13:29 Dose: 10 mg Documented by: Calcium Carbonate/Cholecalciferol (Os-Mich 500+D -) 1 tab GT BID [facility] Last Admin: 01/06/20 09:04 Dose: 1 tab Documented by: Cholecalciferol (Vitamin D3 -) 2,000 unit GT HS [facility] Last Admin: 01/05/20 21:00 Dose: 2,000 unit Documented by: Docusate Sodium (Colace Liquid -) 100 mg GT BID [facility] Last Admin: 01/06/20 09:04 Dose: 100 mg Documented by: Enoxaparin Sodium (Lovenox -) 40 mg SQ DAILY [facility] Last Admin: 01/06/20 09:04 Dose: 40 mg Documented by: Cefepime HCl 2 gm/ Dextrose 100 mls @ 200 mls/hr IVPB Q8H-IV [facility]; Protocol Last Admin: 01/06/20 09:05 Dose: 200 mls/hr Documented by: Azithromycin (Zithromax 500mg Ivpb (Pre-Docked)) 500 mg in 250 mls @ 250 mls/hr IVPB DAILY [facility] Last Admin: 01/06/20 10:08 Dose: 250 mls/hr Documented by: Magnesium Hydroxide (Milk Of Magnesia -) 30 ml GT DAILY [facility] Last Admin: 01/06/20 09:04 Dose: 30 ml Documented by: Polyethylene Glycol (Miralax (For Daily Use) -) 17 gm GT BID [facility] Last Admin: 01/06/20 09:04 Dose: 17 gm Documented by: Senna (Senna Oral Solution -) 17.6 mg GT DAILY [facility] Last Admin: 01/06/20 09:04 Dose: 17.6 mg Documented by: Simethicone (Mylicon Liquid -) 40 mg GT TID [facility] Last Admin: 01/06/20 13:29 Dose: 40 mg Documented by: - Objective Vital Signs: Vital Signs Temperature 97.6 F 01/06/20 14:00 Pulse Rate 59 L 01/06/20 14:00 Respiratory Rate 20 01/06/20 14:00 Blood Pressure 128/76 01/06/20 14:00 O2 Sat by Pulse Oximetry (%) 98 01/06/20 14:00 Labs: CBC, BMP 01/06/20 06:22 01/06/20 06:22 INR, PTT INR 0.99 (0.83-1.09) 12/31/19 11:10
[2020-01-06] MEDS: SCOPOLAMINE HYDROBROMIDE 1 PATCH PATCH.TD72 TD SCH (17:39)
[2020-01-06] MEDS: CHOLECALCIFEROL (VIT D3) 1,000 UNIT (25 MCG) TABLET GT SCH (22:07)
[2020-01-07] MEDS ORDERED: PT OWN MED DRAWER 7, Y5N ONE ×6 (01:39→21:50)
[2020-01-07] MEDS: CEFEPIME 2 GM in DEXTROSE 5%-WATER 100 ML IVPB SCH ×2 (02:02→09:12)
[2020-01-07] MEDS: SIMETHICONE 40 MG/0.6 ML BOTTLE GT SCH ×3 (05:42→22:27)
[2020-01-07] MEDS: BACLOFEN 10 MG TABLET (FP) GT SCH ×3 (05:42→22:26)
--- NOTE | 2020-01-07 08:48 | PN ---
Progress Note, Physician History of Present Illness: secretions improving still present comfortable - Current Medication List Current Medications: Active Medications Baclofen (Lioresal -) 10 mg GT TID [facility] Last Admin: 01/07/20 05:42 Dose: 10 mg Documented by: Calcium Carbonate/Cholecalciferol (Os-Mich 500+D -) 1 tab GT BID [facility] Last Admin: 01/06/20 22:06 Dose: 1 tab Documented by: Cholecalciferol (Vitamin D3 -) 2,000 unit GT HS [facility] Last Admin: 01/06/20 22:07 Dose: 2,000 unit Documented by: Docusate Sodium (Colace Liquid -) 100 mg GT BID [facility] Last Admin: 01/06/20 22:06 Dose: 100 mg Documented by: Enoxaparin Sodium (Lovenox -) 40 mg SQ DAILY [facility] Last Admin: 01/06/20 09:04 Dose: 40 mg Documented by: Cefepime HCl 2 gm/ Dextrose 100 mls @ 200 mls/hr IVPB Q8H-IV [facility]; Protocol Last Admin: 01/07/20 02:02 Dose: 200 mls/hr Documented by: Azithromycin (Zithromax 500mg Ivpb (Pre-Docked)) 500 mg in 250 mls @ 250 mls/hr IVPB DAILY [facility] Last Admin: 01/06/20 10:08 Dose: 250 mls/hr Documented by: Magnesium Hydroxide (Milk Of Magnesia -) 30 ml GT DAILY [facility] Last Admin: 01/06/20 09:04 Dose: 30 ml Documented by: Polyethylene Glycol (Miralax (For Daily Use) -) 17 gm GT BID [facility] Last Admin: 01/06/20 22:05 Dose: 17 gm Documented by: Scopolamine HBr (Transderm-Scop -) 1 patch TD Q72H [facility] Last Admin: 01/06/20 17:39 Dose: 1 patch Documented by: Senna (Senna Oral Solution -) 17.6 mg GT DAILY [facility] Last Admin: 01/06/20 09:04 Dose: 17.6 mg Documented by: Simethicone (Mylicon Liquid -) 40 mg GT TID [facility] Last Admin: 01/07/20 05:42 Dose: 40 mg Documented by: - Objective Vital Signs: Vital Signs Temperature 98.2 F 01/07/20 06:00 Pulse Rate 52 L 01/07/20 06:00 Respiratory Rate 18 09/20/20 06:00 Blood Pressure 117/91 01/07/20 06:00 O2 Sat by Pulse Oximetry (%) 97 01/06/20 21:00 Constitutional: Yes: No Distress, Calm Cardiovascular: Yes: S1, S2 Respiratory: Yes: Other (trach secretions) Gastrointestinal: Yes: Normal Bowel Sounds, Soft Musculoskeletal: Yes: WNL Extremities: Yes: WNL Neurological: Yes: Alert Labs: CBC, BMP 01/06/20 06:22 01/06/20 06:22 INR, PTT INR 0.99 (0.83-1.09) 12/31/19 11:10 Assessment/Plan Problem List - Problems (1) Sepsis Code(s): A41.9 - SEPSIS, UNSPECIFIED ORGANISM Qualifiers: Sepsis type: sepsis due to unspecified organism Sepsis acute organ dysfunction status: with acute organ dysfunction Severe sepsis acute organ dysfunction type: acute respiratory failure Acute respiratory failure type: with hypoxia Severe sepsis shock status: without septic shock Qualified Code(s): A41.9 - Sepsis, unspecified organism; R65.20 - Severe sepsis without septic shock; J96.01 - Acute respiratory failure with hypoxia (2) Cerebral palsy Code(s): G80.9 - CEREBRAL PALSY, UNSPECIFIED (3) Functional quadriplegia Code(s): R53.2 - FUNCTIONAL QUADRIPLEGIA (4) PEG (percutaneous endoscopic gastrostomy) status Code(s): Z93.1 - GASTROSTOMY STATUS (5) Hypothermia Code(s): T68.XXXA - HYPOTHERMIA, INITIAL ENCOUNTER Qualifiers: (6) Pneumonia Code(s): J18.9 - PNEUMONIA, UNSPECIFIED ORGANISM Assessment/Plan 49 y.o. male with PMH of Cerebral palsy, congenitial quadriplegia, seizure d.o., hx of respiratory failure s/p trach/GT sent from [place] for respiratory distress and hypoxia. PNA Sepsis Acute hypoxemic respiratory failure Leukocytosis Hypothermia Previous hx of Intubation -with trach collar Cerebral palsy Functional Quadriplegia Seizure d.o. s/p GT plan cx results noted ct abx suctioning rest as per the team
[2020-01-07] MEDS: DOCUSATE NA 100 MG/10 ML UNIT-DOSE CUPS GT SCH ×2 (09:09→22:26)
[2020-01-07] MEDS: CALCIUM 500MG/VIT-D 200 UNITS COMBO TABLET (FP) GT SCH ×2 (09:09→22:25)
[2020-01-07] MEDS: MAGNESIUM HYDROX 2400MG/30ML ORAL SUSPENSION 30 ML CUP GT SCH (09:09)
[2020-01-07] MEDS: ENOXAPARIN NA (PORCINE) 40 MG/0.4 ML DISP.SYRIN SQ SCH (09:09)
[2020-01-07] MEDS: SENNOSIDES 8.8 MG/5 ML BULK BOTTLE GT SCH (09:10)
[2020-01-07] MEDS: AZITHROMYCIN IVPB 500 MG/250 ML BAG IVPB SCH (09:13)
--- NOTE | 2020-01-07 11:47 | PN ---
Teaching Attending Note Name of Resident: Saw George ATTENDING PHYSICIAN STATEMENT I saw and evaluated the patient. I reviewed the resident's note and discussed the case with the resident. I agree with the resident's findings and plan as documented. SUBJECTIVE: pt seen and examined OBJECTIVE: Last Vital Signs Temp Pulse Resp BP Pulse Ox 96.9 F L 61 18 126/72 99 01/07/20 10:00 01/07/20 10:00 01/07/20 10:00 01/07/20 10:00 01/07/20 10:00 GEN: alert, awake, not in apparent distress HEENT: Microcephalic, PERRLA, divergent squint Heart: regular, S1, S2, no m/r/g Lungs: Trach collar. Bilateral lower zone crackles and occasional wheeze. Abdomen: Soft, non-tender. G-tube site cleaned. Bowel Sounds normal Extremities: Bilateral UE/LE contractures. Neuro: Awake, not verbally responsive CBCD WBC 7.3 K/mm3 (4.0-10.0) 01/06/20 06:22 RBC 3.54 M/mm3 (4.00-5.60) L 01/06/20 06:22 Hgb 11.2 GM/dL (11.7-16.9) L 01/06/20 06:22 Hct 33.0 % (35.4-49) L 01/06/20 06:22 MCV 93.1 fl (80-96) 01/06/20 06:22 MCHC 34.0 g/dl (32.0-35.9) 01/06/20 06:22 RDW 17.2 % (11.9-15.9) H 01/06/20 06:22 Plt Count 268 K/MM3 (134-434) 01/06/20 06:22 MPV 7.6 fl (7.5-11.1) 01/06/20 06:22 CMP Sodium 136 mmol/L (136-145) 01/06/20 06:22 Potassium 3.6 mmol/L (3.5-5.1) 01/06/20 06:22 Chloride 101 mmol/L (98-107) 01/06/20 06:22 Carbon Dioxide 31 mmol/L (21-32) 01/06/20 06:22 Anion Gap 5 MMOL/L (8-16) L 01/06/20 06:22 BUN 14.6 mg/dL (7-18) 01/06/20 06:22 Creatinine 0.4 mg/dL (0.55-1.3) L 01/06/20 06:22 Calcium 8.1 mg/dL (8.5-10.1) L 01/06/20 06:22 Total Bilirubin 1.1 mg/dL (0.2-1) H 01/06/20 06:22 AST 63 U/L (15-37) H 01/06/20 06:22 ALT 57 U/L (13-61) 01/06/20 06:22 Alkaline Phosphatase 125 U/L (45-117) H 01/06/20 06:22 Total Protein 6.5 g/dl (6.4-8.2) 01/06/20 06:22 Albumin 2.8 g/dl (3.4-5.0) L 01/06/20 06:22 Active Medications Baclofen (Lioresal -) 10 mg GT TID [facility] Last Admin: 01/07/20 05:42 Dose: 10 mg Documented by: Calcium Carbonate/Cholecalciferol (Os-Mich 500+D -) 1 tab GT BID [facility] Last Admin: 01/07/20 09:09 Dose: 1 tab Documented by: Cholecalciferol (Vitamin D3 -) 2,000 unit GT HS [facility] Last Admin: 01/06/20 22:07 Dose: 2,000 unit Documented by: Docusate Sodium (Colace Liquid -) 100 mg GT BID [facility] Last Admin: 01/07/20 09:09 Dose: 100 mg Documented by: Enoxaparin Sodium (Lovenox -) 40 mg SQ DAILY [facility] Last Admin: 01/07/20 09:09 Dose: 40 mg Documented by: Cefepime HCl 2 gm/ Dextrose 100 mls @ 200 mls/hr IVPB Q8H-IV [facility]; Protocol Last Admin: 01/07/20 09:12 Dose: 200 mls/hr Documented by: Azithromycin (Zithromax 500mg Ivpb (Pre-Docked)) 500 mg in 250 mls @ 250 mls/hr IVPB DAILY [facility] Last Admin: 01/07/20 09:13 Dose: 250 mls/hr Documented by: Magnesium Hydroxide (Milk Of Magnesia -) 30 ml GT DAILY [facility] Last Admin: 01/07/20 09:09 Dose: 30 ml Documented by: Polyethylene Glycol (Miralax (For Daily Use) -) 17 gm GT BID [facility] Last Admin: 01/06/20 22:05 Dose: 17 gm Documented by: Scopolamine HBr (Transderm-Scop -) 1 patch TD Q72H [facility] Last Admin: 01/06/20 17:39 Dose: 1 patch Documented by: Senna (Senna Oral Solution -) 17.6 mg GT DAILY [facility] Last Admin: 01/07/20 09:10 Dose: 17.6 mg Documented by: Simethicone (Mylicon Liquid -) 40 mg GT TID [facility] Last Admin: 01/07/20 05:42 Dose: 40 mg Documented by: ASSESSMENT AND PLAN: 49 year old male [place] resident with history of Cerebral Palsy, cognitive impairment (non-verbal), functional quadriplegia, epilepsy, s/p Trach and G- tube, send to ED for respiratory distress and hypoxia. # Acute Hypoxic Respiratory Failure and Sepsis secondary to Pneumonia resolved Healthcare Acquired Sputum Cx pseudomonas, Enterobacter, citrobacter. Sensitive to zosyn, ceftazidime, aztreonam stable vitals, afebrile Supplemental O2 via Trach, titrate down as tolerated keep head elevated Abx per ID discharge planning on AM, will not need Abx after discharge case discussed with ID h/o Seizure Disorder Chronic Constipation/Fecal Impaction Cerebral Palsy/Functional Quadriplegia/Cognitive Impairment DVT Px - Lovenox SQ.
--- NOTE | 2020-01-07 12:08 | PN ---
Physical Exam: SUBJECTIVE: Patient seen and examined. Nonverbal at baseline. OBJECTIVE: Vital Signs Period Temp Pulse Resp BP Sys/Oropeza Pulse Ox Last 24 Hr 96.9 F-98.3 F 51-89 18-20 117-128/72-91 97-99 GENERAL: The patient is awake, nonverbal at baseline. HEENT: Microcephalic, PERRLA ENT: Ears normal, nares patent, oropharynx clear without exudates, moist mucous membranes. NECK: Trachea midline, full range of motion, supple. LUNGS: Breath sounds equal, no crackles, no accessory muscle use. Mild crackles. Occasional wheezes. HEART: Regular rate and rhythm, S1, S2 without murmur, rub or gallop. ABDOMEN: Soft, nontender, nondistended. G-tube intact. EXTREMITIES: B/L upper and lower extremity contractures. NEUROLOGICAL: Cranial nerves II through XII grossly intact. Nonverbal at baseline. PSYCH: Normal mood, normal affect. SKIN: Warm, dry, normal turgor, no rashes or lesions noted Active Medications Generic Name Dose Route Start Last Admin Trade Name Freq PRN Reason Stop Dose Admin Baclofen 10 mg 12/31/19 22:00 01/07/20 05:42 Lioresal - GT 10 mg TID [facility] Administration Calcium Carbonate/Cholecalciferol 1 tab 01/02/20 10:00 01/07/20 09:09 Os-Mich 500+D - GT 1 tab BID [facility] Administration Cholecalciferol 2,000 unit 01/02/20 22:00 01/06/20 22:07 Vitamin D3 - GT 2,000 unit HS [facility] Administration Docusate Sodium 100 mg 01/02/20 08:07 01/07/20 09:09 Colace Liquid - GT 100 mg BID [facility] Administration Enoxaparin Sodium 40 mg 01/01/20 10:00 01/07/20 09:09 Lovenox - SQ 40 mg DAILY [facility] Administration Cefepime HCl 2 gm/ Dextrose 100 mls @ 200 mls/hr 12/31/19 18:00 01/07/20 09:12 IVPB 200 mls/hr Q8H-IV [facility] Administration Protocol Azithromycin 500 mg in 250 mls @ 250 mls/hr 01/01/20 10:00 01/07/20 09:13 Zithromax 500mg Ivpb (Pre-Docked) IVPB 250 mls/hr DAILY [facility] Administration Magnesium Hydroxide 30 ml 01/02/20 10:00 01/07/20 09:09 Milk Of Magnesia - GT 30 ml DAILY [facility] Administration Polyethylene Glycol 17 gm 01/02/20 08:07 01/06/20 22:05 Miralax (For Daily Use) - GT 17 gm BID [facility] Administration Scopolamine HBr 1 patch 01/06/20 17:30 01/06/20 17:39 Transderm-Scop - TD 1 patch Q72H [facility] Administration Senna 17.6 mg 01/01/20 10:00 01/07/20 09:10 Senna Oral Solution - GT 17.6 mg DAILY [facility] Administration Simethicone 40 mg 12/31/19 22:00 01/07/20 05:42 Mylicon Liquid - GT 40 mg TID [facility] Administration ASSESSMENT/PLAN: Pt is a 49 year old male from [facility] with PMHx of cerebral palsy, intellectual disability (non-verbal), congenital quadriplegia, epilepsy, G-tube and tracheostomy presenting with SOB and hypoxia, admitted for hypoxia secondary to pneumonia. #Hypoxia 2/2 to pneumonia, health-care acquired -Sputum culture pseudomonas, enterobacter, citrobacter -98% on 5L O2 tracheal collar (weaned down from 7L); maintain SpO2 > 90% -frequent suctioning -complete Abx course today; cefepime and azithro -no d/c abx per ID #Epilepsy -Per hx, no seizures since 1984, not on antiepileptics since 1994 #G-tube -On tube feeds PPx Lovenox 40mg SQ daily FEN -No standing fluids -Monitor electrolytes -G tube feeds Dispo Admitted tele. Visit type - Emergency Visit Emergency Visit: Yes ED Registration Date: 12/31/19 Care time: The patient presented to the Emergency Department on the above date and was hospitalized for further evaluation of their emergent condition. - New Patient This patient is new to me today: No - Critical Care Critical Care patient: No ATTENDING PHYSICIAN STATEMENT I saw and evaluated the patient. I reviewed the resident's note and discussed the case with the resident. I agree with the resident's findings and plan as documented. SUBJECTIVE: OBJECTIVE: ASSESSMENT AND PLAN:
[2020-01-07] MEDS: POLYETHYLENE GLYCOL 3350 119 GM BTL GT SCH ×2 (13:07→22:26)
[2020-01-07] MEDS: CHOLECALCIFEROL (VIT D3) 1,000 UNIT (25 MCG) TABLET GT SCH (22:27)
[2020-01-08] MEDS ORDERED: PT OWN MED DRAWER 7, Y5N ONE ×5 (05:41→21:07)
[2020-01-08] MEDS: SIMETHICONE 40 MG/0.6 ML BOTTLE GT SCH ×3 (05:51→21:18)
[2020-01-08] MEDS: BACLOFEN 10 MG TABLET (FP) GT SCH ×3 (05:51→21:18)
[2020-01-08] MEDS: DOCUSATE NA 100 MG/10 ML UNIT-DOSE CUPS GT SCH ×2 (10:31→21:18)
[2020-01-08] MEDS: SENNOSIDES 8.8 MG/5 ML BULK BOTTLE GT SCH (10:33)
[2020-01-08] MEDS: MAGNESIUM HYDROX 2400MG/30ML ORAL SUSPENSION 30 ML CUP GT SCH (10:33)
[2020-01-08] MEDS: CALCIUM 500MG/VIT-D 200 UNITS COMBO TABLET (FP) GT SCH ×2 (10:33→21:18)
[2020-01-08] MEDS: POLYETHYLENE GLYCOL 3350 119 GM BTL GT SCH ×2 (11:23→21:18)
--- NOTE | 2020-01-08 12:20 | PN ---
Teaching Attending Note Name of Resident: Saw George ATTENDING PHYSICIAN STATEMENT I saw and evaluated the patient. I reviewed the resident's note and discussed the case with the resident. I agree with the resident's findings and plan as documented. SUBJECTIVE: pt seen and examined OBJECTIVE: Last Vital Signs Temp Pulse Resp BP Pulse Ox 98.1 F 50 L 18 104/63 97 01/08/20 06:00 01/08/20 11:58 01/08/20 10:00 01/08/20 10:00 01/08/20 11:58 GEN: alert, awake, not in apparent distress HEENT: Microcephalic, PERRLA, divergent squint Heart: regular, S1, S2, no m/r/g Lungs: Trach collar. Bilateral lower zone crackles and occasional wheeze. Abdomen: Soft, non-tender. G-tube site cleaned. Bowel Sounds normal Extremities: Bilateral UE/LE contractures. Neuro: Awake, not verbally responsive CBCD WBC 7.3 K/mm3 (4.0-10.0) 01/06/20 06:22 RBC 3.54 M/mm3 (4.00-5.60) L 01/06/20 06:22 Hgb 11.2 GM/dL (11.7-16.9) L 01/06/20 06:22 Hct 33.0 % (35.4-49) L 01/06/20 06:22 MCV 93.1 fl (80-96) 01/06/20 06:22 MCHC 34.0 g/dl (32.0-35.9) 01/06/20 06:22 RDW 17.2 % (11.9-15.9) H 01/06/20 06:22 Plt Count 268 K/MM3 (134-434) 01/06/20 06:22 MPV 7.6 fl (7.5-11.1) 01/06/20 06:22 CMP Sodium 136 mmol/L (136-145) 01/06/20 06:22 Potassium 3.6 mmol/L (3.5-5.1) 01/06/20 06:22 Chloride 101 mmol/L (98-107) 01/06/20 06:22 Carbon Dioxide 31 mmol/L (21-32) 01/06/20 06:22 Anion Gap 5 MMOL/L (8-16) L 01/06/20 06:22 BUN 14.6 mg/dL (7-18) 01/06/20 06:22 Creatinine 0.4 mg/dL (0.55-1.3) L 01/06/20 06:22 Calcium 8.1 mg/dL (8.5-10.1) L 01/06/20 06:22 Total Bilirubin 1.1 mg/dL (0.2-1) H 01/06/20 06:22 AST 63 U/L (15-37) H 01/06/20 06:22 ALT 57 U/L (13-61) 01/06/20 06:22 Alkaline Phosphatase 125 U/L (45-117) H 01/06/20 06:22 Total Protein 6.5 g/dl (6.4-8.2) 01/06/20 06:22 Albumin 2.8 g/dl (3.4-5.0) L 01/06/20 06:22 Active Medications Baclofen (Lioresal -) 10 mg GT TID [facility] Last Admin: 01/08/20 05:51 Dose: 10 mg Documented by: Calcium Carbonate/Cholecalciferol (Os-Mich 500+D -) 1 tab GT BID [facility] Last Admin: 01/08/20 10:33 Dose: 1 tab Documented by: Cholecalciferol (Vitamin D3 -) 2,000 unit GT HS [facility] Last Admin: 01/07/20 22:27 Dose: 2,000 unit Documented by: Docusate Sodium (Colace Liquid -) 100 mg GT BID [facility] Last Admin: 01/08/20 10:31 Dose: 100 mg Documented by: Magnesium Hydroxide (Milk Of Magnesia -) 30 ml GT DAILY [facility] Last Admin: 01/08/20 10:33 Dose: 30 ml Documented by: Polyethylene Glycol (Miralax (For Daily Use) -) 17 gm GT BID [facility] Last Admin: 01/08/20 11:23 Dose: 17 gm Documented by: Scopolamine HBr (Transderm-Scop -) 1 patch TD Q72H [facility] Last Admin: 01/06/20 17:39 Dose: 1 patch Documented by: Senna (Senna Oral Solution -) 17.6 mg GT DAILY [facility] Last Admin: 01/08/20 10:33 Dose: 17.6 mg Documented by: Simethicone (Mylicon Liquid -) 40 mg GT TID [facility] Last Admin: 01/08/20 05:51 Dose: 40 mg Documented by: ASSESSMENT AND PLAN: 49 year old male [place] resident with history of Cerebral Palsy, cognitive impairment (non-verbal), functional quadriplegia, epilepsy, s/p Trach and G- tube, send to ED for respiratory distress and hypoxia. # Acute Hypoxic Respiratory Failure and Sepsis secondary to Pneumonia resolved Healthcare Acquired Sputum Cx pseudomonas, Enterobacter, citrobacter. Sensitive to zosyn, ceftazidime, aztreonam stable vitals, afebrile keep head elevated discharge planning on AM, will not need Abx after discharge case discussed with ID h/o Seizure Disorder Chronic Constipation/Fecal Impaction Cerebral Palsy/Functional Quadriplegia/Cognitive Impairment DVT Px - Lovenox SQ.
--- NOTE | 2020-01-08 15:13 | PN ---
Physical Exam: SUBJECTIVE: Patient seen and examined. Nonverbal at baseline. OBJECTIVE: Vital Signs Period Temp Pulse Resp BP Sys/Oropeza Pulse Ox Last 24 Hr 97.0 F-98.6 F 50-66 16-19 104-127/59-80 87-99 GENERAL: The patient is awake, nonverbal at baseline. HEENT: Microcephalic, PERRLA ENT: Ears normal, nares patent, oropharynx clear without exudates, moist mucous membranes. NECK: Trachea midline, full range of motion, supple. LUNGS: Breath sounds equal, no crackles, no accessory muscle use. Mild crackles. Occasional wheezes. HEART: Regular rate and rhythm, S1, S2 without murmur, rub or gallop. ABDOMEN: Soft, nontender, nondistended. G-tube intact. EXTREMITIES: B/L upper and lower extremity contractures. NEUROLOGICAL: Cranial nerves II through XII grossly intact. Nonverbal at baseline. PSYCH: Normal mood, normal affect. SKIN: Warm, dry, normal turgor, no rashes or lesions noted Active Medications Generic Name Dose Route Start Last Admin Trade Name Freq PRN Reason Stop Dose Admin Baclofen 10 mg 12/31/19 22:00 01/08/20 13:02 Lioresal - GT 10 mg TID TAR[facility] Administration Calcium Carbonate/Cholecalciferol 1 tab 01/02/20 10:00 01/08/20 10:33 [place] 500+D - GT 1 tab BID [facility] Administration Cholecalciferol 2,000 unit 01/02/20 22:00 01/07/20 22:27 Vitamin D3 - GT 2,000 unit HS [facility] Administration Docusate Sodium 100 mg 01/02/20 08:07 01/08/20 10:31 Colace Liquid - GT 100 mg BID [facility] Administration Magnesium Hydroxide 30 ml 01/02/20 10:00 01/08/20 10:33 Milk Of Magnesia - GT 30 ml DAILY [facility] Administration Polyethylene Glycol 17 gm 01/02/20 08:07 01/08/20 11:23 Miralax (For Daily Use) - GT 17 gm BID [facility] Administration Scopolamine HBr 1 patch 01/06/20 17:30 01/06/20 17:39 Transderm-Scop - TD 1 patch Q72H [facility] Administration Senna 17.6 mg 01/01/20 10:00 01/08/20 10:33 Senna Oral Solution - GT 17.6 mg DAILY [facility] Administration Simethicone 40 mg 12/31/19 22:00 01/08/20 13:03 Mylicon Liquid - GT 40 mg TID [facility]AR[facility] Administration ASSESSMENT/PLAN: Pt is a 49 year old male from [facility] with PMHx of cerebral palsy, intellectual disability (non-verbal), congenital quadriplegia, epilepsy, G-tube and tracheostomy presenting with SOB and hypoxia, admitted for hypoxia secondary to pneumonia. #Hypoxia 2/2 to pneumonia, health-care acquired -Sputum culture pseudomonas, enterobacter, citrobacter -98% on 5L O2 tracheal collar (weaned down from 7L); maintain SpO2 > 90%; titrate down -frequent suctioning -ABx course completed #Epilepsy -Per hx, no seizures since 1984, not on antiepileptics since 1994 #G-tube -On tube feeds PPx Lovenox 40mg SQ daily FEN -No standing fluids -Monitor electrolytes -G tube feeds Dispo Admitted tele. Titrate down oxygen. Visit type - Emergency Visit Emergency Visit: Yes ED Registration Date: 12/31/19 Care time: The patient presented to the Emergency Department on the above date and was hospitalized for further evaluation of their emergent condition. - New Patient This patient is new to me today: No - Critical Care Critical Care patient: No ATTENDING PHYSICIAN STATEMENT I saw and evaluated the patient. I reviewed the resident's note and discussed the case with the resident. I agree with the resident's findings and plan as documented. SUBJECTIVE: OBJECTIVE: ASSESSMENT AND PLAN:
--- NOTE | 2020-01-08 15:17 | PN ---
Progress Note, Physician - Current Medication List Current Medications: Active Medications Baclofen (Lioresal -) 10 mg GT TID [facility] Last Admin: 01/08/20 13:02 Dose: 10 mg Documented by: Calcium Carbonate/Cholecalciferol ([place] 500+D -) 1 tab GT BID [facility] Last Admin: 01/08/20 10:33 Dose: 1 tab Documented by: Cholecalciferol (Vitamin D3 -) 2,000 unit GT HS [facility] Last Admin: 01/07/20 22:27 Dose: 2,000 unit Documented by: Docusate Sodium (Colace Liquid -) 100 mg GT BID [facility] Last Admin: 01/08/20 10:31 Dose: 100 mg Documented by: Magnesium Hydroxide (Milk Of Magnesia -) 30 ml GT DAILY [facility] Last Admin: 01/08/20 10:33 Dose: 30 ml Documented by: Polyethylene Glycol (Miralax (For Daily Use) -) 17 gm GT BID [facility] Last Admin: 01/08/20 11:23 Dose: 17 gm Documented by: Scopolamine HBr (Transderm-Scop -) 1 patch TD Q72H [facility] Last Admin: 01/06/20 17:39 Dose: 1 patch Documented by: Senna (Senna Oral Solution -) 17.6 mg GT DAILY [facility] Last Admin: 01/08/20 10:33 Dose: 17.6 mg Documented by: Simethicone (Mylicon Liquid -) 40 mg GT TID [facility] Last Admin: 01/08/20 13:03 Dose: 40 mg Documented by: - Objective Vital Signs: Vital Signs Temperature 97.4 F L 01/08/20 14:00 Pulse Rate 56 L 01/08/20 14:00 Respiratory Rate 18 01/08/20 14:00 Blood Pressure 127/80 01/08/20 14:00 O2 Sat by Pulse Oximetry (%) 99 01/08/20 14:00 Labs: CBC, BMP 01/06/20 06:22 01/06/20 06:22 INR, PTT INR 0.99 (0.83-1.09) 12/31/19 11:10
[2020-01-08] MEDS: CHOLECALCIFEROL (VIT D3) 1,000 UNIT (25 MCG) TABLET GT SCH (21:18)
[2020-01-09] MEDS ORDERED: PT OWN MED DRAWER 7, Y5N ONE ×3 (05:06→20:59)
[2020-01-09] MEDS: SIMETHICONE 40 MG/0.6 ML BOTTLE GT SCH ×3 (05:11→21:08)
[2020-01-09] MEDS: BACLOFEN 10 MG TABLET (FP) GT SCH ×3 (05:11→21:09)
[2020-01-09] MEDS: DOCUSATE NA 100 MG/10 ML UNIT-DOSE CUPS GT SCH ×2 (09:27→21:09)
[2020-01-09] MEDS: MAGNESIUM HYDROX 2400MG/30ML ORAL SUSPENSION 30 ML CUP GT SCH (09:27)
[2020-01-09] MEDS: CALCIUM 500MG/VIT-D 200 UNITS COMBO TABLET (FP) GT SCH ×2 (09:28→21:09)
[2020-01-09] MEDS: SENNOSIDES 8.8 MG/5 ML BULK BOTTLE GT SCH (09:28)
[2020-01-09] MEDS: POLYETHYLENE GLYCOL 3350 119 GM BTL GT SCH ×2 (09:30→21:08)
--- NOTE | 2020-01-09 14:01 | PN ---
Progress Note, Physician - Current Medication List Current Medications: Active Medications Baclofen (Lioresal -) 10 mg GT TID [facility] Last Admin: 01/09/20 05:11 Dose: 10 mg Documented by: Calcium Carbonate/Cholecalciferol ([place] 500+D -) 1 tab GT BID [facility] Last Admin: 01/09/20 09:28 Dose: 1 tab Documented by: Cholecalciferol (Vitamin D3 -) 2,000 unit GT HS [facility] Last Admin: 01/08/20 21:18 Dose: 2,000 unit Documented by: Docusate Sodium (Colace Liquid -) 100 mg GT BID [facility] Last Admin: 01/09/20 09:27 Dose: 100 mg Documented by: Magnesium Hydroxide (Milk Of Magnesia -) 30 ml GT DAILY [facility] Last Admin: 01/09/20 09:27 Dose: 30 ml Documented by: Polyethylene Glycol (Miralax (For Daily Use) -) 17 gm GT BID [facility] Last Admin: 01/09/20 09:30 Dose: 17 gm Documented by: Scopolamine HBr (Transderm-Scop -) 1 patch TD Q72H [facility] Last Admin: 01/06/20 17:39 Dose: 1 patch Documented by: Senna (Senna Oral Solution -) 17.6 mg GT DAILY [facility] Last Admin: 01/09/20 09:28 Dose: 17.6 mg Documented by: Simethicone (Mylicon Liquid -) 40 mg GT TID [facility] Last Admin: 01/09/20 05:11 Dose: 40 mg Documented by: - Objective Vital Signs: Vital Signs Temperature 97.5 F L 01/09/20 09:34 Pulse Rate 61 01/09/20 09:34 Respiratory Rate 18 01/09/20 09:34 Blood Pressure 119/64 01/09/20 09:34 O2 Sat by Pulse Oximetry (%) 91 L 01/09/20 09:34 Labs: CBC, BMP 01/06/20 06:22 01/06/20 06:22 INR, PTT INR 0.99 (0.83-1.09) 12/31/19 11:10
--- NOTE | 2020-01-09 15:38 | PN ---
Teaching Attending Note Name of Resident: Saw George ATTENDING PHYSICIAN STATEMENT I saw and evaluated the patient. I reviewed the resident's note and discussed the case with the resident. I agree with the resident's findings and plan as documented. SUBJECTIVE: Non-verbal, unable to participate in medical interview. OBJECTIVE: Afebrile, Hemodynamically Stable. On Trach Collar - 1L O2 Last Vital Signs Temp Pulse Resp BP Pulse Ox 97.7 F 57 L 18 119/76 93 L 01/09/20 14:00 01/09/20 14:00 01/09/20 14:00 01/09/20 14:00 01/09/20 14:00 HEENT - Atraumatic, Normocephalic. Heart - S1, S2, RRR Lungs - few bibasal crackles. Abdomen - Soft, non-tender. PEG in situ. Bowel Sounds normal. Extremities - no edema, contractures+ Current Medications Generic Name Dose Route Start Last Admin Trade Name Freq PRN Reason Stop Dose Admin Baclofen 10 mg 12/31/19 22:00 01/09/20 14:37 Lioresal - GT 10 mg TID [facility] Administration Calcium Carbonate/Cholecalciferol 1 tab 01/02/20 10:00 01/09/20 09:28 [place] 500+D - GT 1 tab BID [facility] Administration Cholecalciferol 2,000 unit 01/02/20 22:00 01/08/20 21:18 Vitamin D3 - GT 2,000 unit HS [facility] Administration Docusate Sodium 100 mg 01/02/20 08:07 01/09/20 09:27 Colace Liquid - GT 100 mg BID [facility] Administration Magnesium Hydroxide 30 ml 01/02/20 10:00 01/09/20 09:27 Milk Of Magnesia - GT 30 ml DAILY [facility] Administration Polyethylene Glycol 17 gm 01/02/20 08:07 01/09/20 09:30 Miralax (For Daily Use) - GT 17 gm BID [facility] Administration Scopolamine HBr 1 patch 01/06/20 17:30 01/06/20 17:39 Transderm-Scop - TD 1 patch Q72H [facility] Administration Senna 17.6 mg 01/01/20 10:00 01/09/20 09:28 Senna Oral Solution - GT 17.6 mg DAILY [facility] Administration Simethicone 40 mg 12/31/19 22:00 01/09/20 14:38 Mylicon Liquid - GT 40 mg TID [facility] Administration Home Medications Medication Instructions Recorded Baclofen 10 mg GT TID 01/29/16 Cholecalciferol (Vitamin D3) 2,000 unit GT HS 01/29/16 [Vitamin D3] Simethicone 40 mg GT TID 01/29/16 Albuterol 2.5/Ipratropium 0.5 1 amp NEB RQID amp 03/08/18 [Duoneb -] Mag Carb/Aluminum Hydrox/Algin 5 ml GT TID 11/14/18 [Riginic Suspension] [place]-3/Dha/Epa/Fish Oil [Fish Oil 1,000 mg GT BID 11/14/18 1,600 mg/5 ml Liquid] Scopolamine [Transderm-Scop] 1 mg TD ASDIR 11/14/18 Sennosides [Senna] 17.6 mg GT DAILY 11/14/18 Lubiprostone [Amitiza] 24 mcg GT BID 12/01/18 Polyethylene Glycol 3350 [Miralax 17 gm PO BID bottle 12/01/18 119 gm Btl -] Calcium Carbonate/Vitamin D3 1 tab GT BID 01/01/20 [Calcium 500-Vit D3 200 Tablet] Magnesium Hydrox 2400MG/30Ml [Milk 30 ml GT DAILY 01/01/20 of Magnesia -] Docusate Liquid [Colace Liquid -] 100 mg GT BID ud 01/04/20 ASSESSMENT AND PLAN: 49 year old male [place] resident with history of Cerebral Palsy, Cognitive impairment (non-verbal), functional quadriplegia, Seizure Disorder, s/p Trach and G-tube, send to ED for respiratory distress and Hypoxia. 1. Acute Hypoxic Respiratory Failure and Sepsis secondary to Pneumonia/HCAP - resolved Sputum Cx Pseudomonas, Enterobacter, Citrobacter. Completed Abx therapy. Afebrile, Hemodynamicaly Stable. Continue to slowly wean off supplemental O2. Scopolamine patch for secretions. 2. Chronic Constipation - maintain on bowel regimen including Amitiza. 3. Cerebral Palsy/Functional Quadriplegia/Cognitive Impairment - continue Baclofen Dispo - for return to [place] for ongoing care. DVT Px - Lovenox SQ during in-patient stay.
--- NOTE | 2020-01-09 16:28 | DS ---
Physical Exam: SUBJECTIVE: Patient seen and examined OBJECTIVE: Vital Signs Period Temp Pulse Resp BP Sys/Oropeza Pulse Ox Last 24 Hr 97.5 F-97.8 F 56-61 18-22 115-154/64-76 91-98 PHYSICAL EXAM GENERAL: The patient is awake, nonverbal at baseline. HEENT: Microcephalic, PERRLA ENT: Ears normal, nares patent, oropharynx clear without exudates, moist mucous membranes. NECK: Trachea midline, full range of motion, supple. LUNGS: Breath sounds equal, no crackles, no accessory muscle use. Mild crackles. Occasional wheezes. HEART: Regular rate and rhythm, S1, S2 without murmur, rub or gallop. ABDOMEN: Soft, nontender, nondistended. G-tube intact. EXTREMITIES: B/L upper and lower extremity contractures. NEUROLOGICAL: Cranial nerves II through XII grossly intact. Nonverbal at baseline. PSYCH: Normal mood, normal affect. SKIN: Warm, dry, normal turgor, no rashes or lesions noted LABS HOSPITAL COURSE: Date of Admission:12/31/19 Date of Discharge: 01/09/20 Discharge Summary Problems reviewed: Yes Reason For Visit: HYPOXIA/SEPSIS Current Active Problems Aspiration pneumonia (Acute) Condition: Improved - Instructions Diet, Activity, Other Instructions: You came to the hospital because you were found to not having enough oxygen in your blood. You were found to have pneumonia and were treated with antibiotics, which you completed the course. You had imaging which showed that you have pneumonia. You also received oxygen through your tracheal collar that was inserted in the past. To prevent further aspiration pneumonia episodes, please ensure to use frequent suctioning of the secretions in the mouth, keep the head of the bed elevated. Please resume all home medications as prescribed. No further antibiotics are recommended. You will be returning to [facility] Please follow up with your physician, Dr. Sloan, for follow up and overall health maintenance. Please follow up with your security systems technician, Dr. Paz, within 2 weeks. If you have any new symptoms please call 911 or return to the ED. Referrals: Ted Paz MD [Staff Physician] - Devyn Sloan Jr [Non Staff, Medical] - Disposition: [facility] - Home Medications Comprehensive Discharge Medication List: Ambulatory Orders Baclofen 10 mg GT TID 01/29/16 Cholecalciferol (Vitamin D3) [Vitamin D3] 2,000 unit GT HS 01/29/16 Simethicone 40 mg GT TID 01/29/16 Albuterol 2.5/Ipratropium 0.5 [Duoneb -] 1 amp NEB RQID amp 03/08/18 Mag Carb/Aluminum Hydrox/Algin [Riginic Suspension] 5 ml GT TID 11/14/18 [place]-3/Dha/Epa/Fish Oil [Fish Oil 1,600 mg/5 ml Liquid] 1,000 mg GT BID 11/14/18 Scopolamine [Transderm-Scop] 1 mg TD ASDIR 11/14/18 Sennosides [Senna] 17.6 mg GT DAILY 11/14/18 Lubiprostone [Amitiza] 24 mcg GT BID 12/01/18 Polyethylene Glycol 3350 [Miralax 119 gm Btl -] 17 gm PO BID bottle 12/01/18 Calcium Carbonate/Vitamin D3 [Calcium 500-Vit D3 200 Tablet] 1 tab GT BID 01/01/20 Magnesium Hydrox 2400MG/30Ml [Milk of Magnesia -] 30 ml GT DAILY 01/01/20 Docusate Liquid [Colace Liquid -] 100 mg GT BID ud 01/04/20 Scopolamine Hydrobromide [Transderm-Scop -] 1 patch TD Q72H patch.td72 01/09/20 - Discharge Referral Referred to [facility] No ATTENDING PHYSICIAN STATEMENT I saw and evaluated the patient. I reviewed the resident's note and discussed the case with the resident. I agree with the resident's findings and plan as documented. SUBJECTIVE: OBJECTIVE: ASSESSMENT AND PLAN:
[2020-01-09] MEDS: SCOPOLAMINE HYDROBROMIDE 1 PATCH PATCH.TD72 TD SCH (18:06)
[2020-01-09] MEDS: CHOLECALCIFEROL (VIT D3) 1,000 UNIT (25 MCG) TABLET GT SCH (21:09)
[2020-01-10] MEDS ORDERED: PT OWN MED DRAWER 7, Y5N ONE ×5 (05:42→15:35)
[2020-01-10] MEDS: BACLOFEN 10 MG TABLET (FP) GT SCH ×2 (05:56→14:27)
[2020-01-10] MEDS: SIMETHICONE 40 MG/0.6 ML BOTTLE GT SCH ×2 (05:56→15:27)
[2020-01-10] MEDS: MAGNESIUM HYDROX 2400MG/30ML ORAL SUSPENSION 30 ML CUP GT SCH (09:33)
[2020-01-10] MEDS: DOCUSATE NA 100 MG/10 ML UNIT-DOSE CUPS GT SCH (09:33)
[2020-01-10] MEDS: POLYETHYLENE GLYCOL 3350 119 GM BTL GT SCH (09:33)
[2020-01-10] MEDS: CALCIUM 500MG/VIT-D 200 UNITS COMBO TABLET (FP) GT SCH (09:34)
[2020-01-10] MEDS: SENNOSIDES 8.8 MG/5 ML BULK BOTTLE GT SCH (09:35)
[2020-01-10] MEDS ORDERED: ENOXAPARIN NA (PORCINE) 40 MG/0.4 ML DISP.SYRIN SQ SCH (10:00)
--- NOTE | 2020-01-10 11:37 | PN ---
Progress Note, Physician - Current Medication List Current Medications: Active Medications Baclofen (Lioresal -) 10 mg GT TID [facility] Last Admin: 01/10/20 05:56 Dose: 10 mg Documented by: Calcium Carbonate/Cholecalciferol ([place] 500+D -) 1 tab GT BID [facility] Last Admin: 01/10/20 09:34 Dose: 1 tab Documented by: Cholecalciferol (Vitamin D3 -) 2,000 unit GT HS [facility] Last Admin: 01/09/20 21:09 Dose: 2,000 unit Documented by: Docusate Sodium (Colace Liquid -) 100 mg GT BID [facility] Last Admin: 01/10/20 09:33 Dose: 100 mg Documented by: Enoxaparin Sodium (Lovenox -) 40 mg SQ DAILY [facility] Last Admin: 01/10/20 09:33 Dose: 40 mg Documented by: Magnesium Hydroxide (Milk Of Magnesia -) 30 ml GT DAILY [facility] Last Admin: 01/10/20 09:33 Dose: 30 ml Documented by: Polyethylene Glycol (Miralax (For Daily Use) -) 17 gm GT BID [facility] Last Admin: 01/10/20 09:33 Dose: 17 gm Documented by: Scopolamine HBr (Transderm-Scop -) 1 patch TD Q72H [facility] Last Admin: 01/09/20 18:06 Dose: 1 patch Documented by: Senna (Senna Oral Solution -) 17.6 mg GT DAILY [facility] Last Admin: 01/10/20 09:35 Dose: 17.6 mg Documented by: Simethicone (Mylicon Liquid -) 40 mg GT TID [facility] Last Admin: 01/10/20 05:56 Dose: 40 mg Documented by: - Objective Vital Signs: Vital Signs Temperature 97.8 F 01/10/20 09:31 Pulse Rate 64 01/10/20 09:31 Respiratory Rate 20 01/10/20 09:31 Blood Pressure 120/76 01/10/20 09:31 O2 Sat by Pulse Oximetry (%) 98 01/10/20 09:31 Labs: CBC, BMP 01/06/20 06:22 01/06/20 06:22 INR, PTT INR 0.99 (0.83-1.09) 12/31/19 11:10
--- NOTE | 2020-01-10 13:48 | PN ---
Teaching Attending Note Name of Resident: Saw George ATTENDING PHYSICIAN STATEMENT I saw and evaluated the patient. I reviewed the resident's note and discussed the case with the resident. I agree with the resident's findings and plan as documented. SUBJECTIVE: Non-verbal, unable to participate in medical interview. OBJECTIVE: Afebrile, Hemodynamically Stable. On Trach Collar - SpO2 98% on 25- 28% O2 Last Vital Signs Temp Pulse Resp BP Pulse Ox 97.8 F 64 20 120/76 98 01/10/20 09:31 01/10/20 09:31 01/10/20 09:31 01/10/20 09:31 01/10/20 09:31 Heart - S1, S2, RRR Lungs - few bibasal crackles. Abdomen - Soft, non-tender. PEG in situ. Bowel Sounds normal. Extremities - no edema, contractures+ Current Medications Generic Name Dose Route Start Last Admin Trade Name Freq PRN Reason Stop Dose Admin Baclofen 10 mg 12/31/19 22:00 01/10/20 05:56 Lioresal - GT 10 mg TID [facility] Administration Calcium Carbonate/Cholecalciferol 1 tab 01/02/20 10:00 01/10/20 09:34 [place] 500+D - GT 1 tab BID [facility] Administration Cholecalciferol 2,000 unit 01/02/20 22:00 01/09/20 21:09 Vitamin D3 - GT 2,000 unit HS [facility] Administration Docusate Sodium 100 mg 01/02/20 08:07 01/10/20 09:33 Colace Liquid - GT 100 mg BID [facility] Administration Enoxaparin Sodium 40 mg 01/10/20 10:00 01/10/20 09:33 Lovenox - SQ 40 mg DAILY [facility] Administration Magnesium Hydroxide 30 ml 01/02/20 10:00 01/10/20 09:33 Milk Of Magnesia - GT 30 ml DAILY [facility] Administration Polyethylene Glycol 17 gm 01/02/20 08:07 01/10/20 09:33 Miralax (For Daily Use) - GT 17 gm BID [facility] Administration Scopolamine HBr 1 patch 01/06/20 17:30 01/09/20 18:06 Transderm-Scop - TD 1 patch Q72H [facility] Administration Senna 17.6 mg 01/01/20 10:00 01/10/20 09:35 Senna Oral Solution - GT 17.6 mg DAILY [facility] Administration Simethicone 40 mg 12/31/19 22:00 01/10/20 05:56 Mylicon Liquid - GT 40 mg TID [facility] Administration Discharge Medications Medication Instructions Recorded Baclofen 10 mg GT TID 01/29/16 Cholecalciferol (Vitamin D3) 2,000 unit GT HS 01/29/16 [Vitamin D3] Simethicone 40 mg GT TID 01/29/16 Albuterol 2.5/Ipratropium 0.5 1 amp NEB RQID amp 03/08/18 [Duoneb -] Mag Carb/Aluminum Hydrox/Algin 5 ml GT TID 11/14/18 [Riginic Suspension] [place]-3/Dha/Epa/Fish Oil [Fish Oil 1,000 mg GT BID 11/14/18 1,600 mg/5 ml Liquid] Scopolamine [Transderm-Scop] 1 mg TD ASDIR 11/14/18 Sennosides [Senna] 17.6 mg GT DAILY 11/14/18 Lubiprostone [Amitiza] 24 mcg GT BID 12/01/18 Polyethylene Glycol 3350 [Miralax 17 gm PO BID bottle 12/01/18 119 gm Btl -] Calcium Carbonate/Vitamin D3 1 tab GT BID 01/01/20 [Calcium 500-Vit D3 200 Tablet] Magnesium Hydrox 2400MG/30Ml [Milk 30 ml GT DAILY 01/01/20 of Magnesia -] Docusate Liquid [Colace Liquid -] 100 mg GT BID ud 01/04/20 Scopolamine Hydrobromide 1 patch TD Q72H patch.td72 01/09/20 [Transderm-Scop -] ASSESSMENT AND PLAN: 49 year old male [place] resident with history of Cerebral Palsy, Cognitive impairment (non-verbal), functional quadriplegia, Seizure Disorder, s/p Trach and G-tube, send to ED for respiratory distress and Hypoxia. 1. Acute Hypoxic Respiratory Failure and Sepsis secondary to Pneumonia/HCAP - resolved Sputum Cx Pseudomonas, Enterobacter, Citrobacter. Completed Abx therapy. Afebrile, Hemodynamicaly Stable. Continue to slowly wean off supplemental O2. Scopolamine patch for secretions. 2. Chronic Constipation - maintain on bowel regimen including Amitiza. 3. Cerebral Palsy/Functional Quadriplegia/Cognitive Impairment - continue Baclofen Dispo - medically stable for return to [place] on supplemental O2 for ongoing care.
[2020-01-10 15:37] VITALS: BP 110/64; PULSE 59; TEMP 99.5
== END 2020-01-10 18:10 | DRG 871 ==
LOC: JER 10:38 → JERBED 12:16 → J4S 01-01 08:22
PROVIDERS: ADMIT Internal Medicine
DX: A41.52 Sepsis due to Pseudomonas (principal); J96.01 Acute respiratory failure with hypoxia; J69.0 Pneumonitis due to inhalation of food and vomit; R53.2 Functional quadriplegia; Q67.5 Congenital deformity of spine; R50.9 Fever, unspecified; G80.8 Other cerebral palsy; D72.829 Elevated white blood cell count, unspecified; K59.09 Other constipation; E83.39 Other disorders of phosphorus metabolism; F79 Unspecified intellectual disabilities; G40.909 Epilepsy, unspecified, not intractable, without status epilepticus; Q02 Microcephaly; Z99.81 Dependence on supplemental oxygen; Z93.1 Gastrostomy status; Z93.0 Tracheostomy status
CPT/HCPCS: 36415; 71045-TC-FY; 71250-TC; 74176-TC; 80048; 80053; 81003; 82803; 82962; 83605; 83735; 84100; 84484; 85025; 85027; 85610; 85730; 87040; 87070; 87086; 87186; 87205; 87899; 93005; 93010; 94640; 94761; 99285-25; J0475; U0003

== ENCOUNTER 2020-02-28 21:46 | Inpatient (IN) | payer OTHER ==
[2020-02-28] MEDS ORDERED: ACETAMINOPHEN INJECTION 100 ML IVPB ONE (22:41)
[2020-02-28] MEDS ORDERED: PIPERACILLIN/TAZOB 4.5 GM 4.5 GM in DEXTROSE 5%-WATER 100 ML IVPB ONE (22:42)
[2020-02-28] MEDS ORDERED: VANCOMYCIN 1,000 MG in DEXTROSE 5%-WATER - 250 ML IVPB ONE (22:42)
[2020-02-28] MEDS ORDERED: SODIUM CHLORIDE 0.9% 1000 ML INFUS.BAG IV ONE (22:42)
[2020-02-28] MEDS ORDERED: ACETAMINOPHEN 1000 MG/100 ML VIAL (NON FORMULARY) IVPB ONE (22:44)
[2020-02-28] MEDS ORDERED: PIPERACILLIN/TAZOB 4.5 GM 4.5 GM/100 ML BAG IVPB ONE (23:12)
[2020-02-28] MEDS ORDERED: VANCOMYCIN 1 GRAM (PRE-DOCKED) 1,000 MG/250 ML BAG IVPB ONE (23:12)
[2020-02-28 23:13] LABS: BASO % 0.1 % (0-2.0); EOS % 2.2 % (0-4.5); HEMATOCRIT 37.3 % (35.4-49); HEMOGLOBIN 12.5 GM/dL (11.7-16.9); LYMPH % 9.6 % (8-40); MCH 32.2 pg (25.7-33.7); MCHC 33.5 g/dl (32.0-35.9); MEAN CELL VOLUME 96.1 fl (80-96); MONO % 5.1 % (3.8-10.2); PLATELET COUNT 299 K/MM3 (134-434); RBC 3.89 M/mm3 (4.00-5.60); WHITE BLOOD COUNT 11.2 K/mm3 (4.0-10.0)
[2020-02-28 23:23] LABS: INR 1.11 (0.83-1.09); PROTHROMBIN TIME (PATIENT) 13.6 SEC (9.7-13.0); VENOUS BASE EXCESS 1.5 mmol/L (-2-2); VENOUS O2 SATURATION 99.3 % (70-80); VENOUS PCO2 47.3 mmHg (38-52); VENOUS PH 7.379 (7.310-7.410)
[2020-02-28 23:25] LABS: ACTIVATED PTT 32.5 SECONDS (25.2-36.5)
[2020-02-28 23:39] LABS: CHLORIDE 94 mmol/L (98-107); POTASSIUM 3.9 mmol/L (3.5-5.1); SODIUM 134 mmol/L (136-145)
[2020-02-28 23:41] LABS: CALCIUM 10.2 mg/dL (8.5-10.1)
[2020-02-28 23:42] LABS: ALBUMIN 3.2 g/dl (3.4-5.0); ANION GAP 9 MMOL/L (8-16); BLOOD UREA NITROGEN 17.7 mg/dL (7-18); CO2 32 mmol/L (21-32); GLUCOSE,RANDOM 94 mg/dL (74-106); MAGNESIUM 2.1 mg/dL (1.8-2.4)
[2020-02-28 23:45] LABS: CREATININE 0.5 mg/dL (0.55-1.3); SGOT/AST 98 U/L (15-37); SGPT/ALT 99 U/L (13-61)
[2020-02-28 23:47] LABS: BILIRUBIN,TOTAL 0.8 mg/dL (0.2-1); TOT PROT 7.5 g/dl (6.4-8.2)
[2020-02-28 23:48] LABS: ALK PHOS 181 U/L (45-117)
[2020-02-28 23:50] LABS: N-TERMINAL BNP 50.4 pg/ml (5-125)
[2020-02-29] MEDS ORDERED: ACETAMINOPHEN 1000 MG/100 ML VIAL (NON FORMULARY) IVPB PRN ×2 (01:40→21:14)
[2020-02-29] MEDS ORDERED: LACTATED RINGERS SOLUTION 1,000 ML/1,000 ML INFUS.BAG IV SCH ×2 (02:00→21:14)
[2020-02-29 02:30] LABS: PH,URINE 6.5 (5.0-8.0); URINE APPEARANCE CLEAR; URINE BILIRUBIN NEGATIVE (NEGATIVE); URINE COLOR YELLOW; URINE GLUCOSE (UA) NEGATIVE (NEGATIVE); URINE KETONE NEGATIVE (NEGATIVE); URINE LEUK ESTERASE NEGATIVE (NEGATIVE); URINE NITRITE NEGATIVE (NEGATIVE); URINE PROTEIN NEGATIVE (NEGATIVE); URINE UROBILINOGEN 0.2 mg/dL (0.2-1.0)
[2020-02-29] MEDS: PIPERACILLIN/TAZOB 3.375 GM 3.375 GM in DEXTROSE 5%-WATER - 50 ML IVPB SCH ×3 (06:15→18:06)
[2020-02-29 07:06] LABS: HEMATOCRIT 33.2 % (35.4-49); HEMOGLOBIN 10.9 GM/dL (11.7-16.9); MCH 31.6 pg (25.7-33.7); MCHC 32.7 g/dl (32.0-35.9); MEAN CELL VOLUME 96.6 fl (80-96); RBC 3.44 M/mm3 (4.00-5.60); WHITE BLOOD COUNT 11.9 K/mm3 (4.0-10.0)
[2020-02-29 07:07] LABS: BASO % 0.3 % (0-2.0); EOS % 2.9 % (0-4.5); LYMPH % 20.8 % (8-40); MEAN PLT VOLUME 8.2 fl (7.5-11.1); MONO % 6.8 % (3.8-10.2); NEUT % 69.2 % (42.8-82.8); PLATELET COUNT 256 K/MM3 (134-434); RDW 14.5 % (11.9-15.9)
[2020-02-29 07:48] LABS: POTASSIUM 3.9 mmol/L (3.5-5.1)
[2020-02-29 07:59] LABS: CALCIUM 9.6 mg/dL (8.5-10.1)
[2020-02-29 08:00] LABS: ALBUMIN 2.7 g/dl (3.4-5.0); BLOOD UREA NITROGEN 13.8 mg/dL (7-18); MAGNESIUM 2.1 mg/dL (1.8-2.4)
[2020-02-29 08:03] LABS: BILIRUBIN,TOTAL 1.4 mg/dL (0.2-1)
[2020-02-29 08:04] LABS: CREATININE 0.5 mg/dL (0.55-1.3); TOT PROT 6.4 g/dl (6.4-8.2)
[2020-02-29 08:28] LABS: ANISOCYTOSIS 1+; MACROCYTOSIS 0; PLATELET ESTIMATE NORMAL
[2020-02-29] MEDS ORDERED: ENOXAPARIN NA (PORCINE) 40 MG/0.4 ML DISP.SYRIN SQ SCH (10:00)
[2020-02-29] MEDS ORDERED: SODIUM PHOSPHATE - 15 MM in SODIUM CHLORIDE 250 ML IVPB ONE (10:15)
[2020-02-29] MEDS ORDERED: ENOXAPARIN NA (PORCINE) 40 MG/0.4 ML DISP.SYRIN SQ ONE (10:19)
[2020-02-29] MEDS ORDERED: PIPERACILLIN/TAZOB 3.375 GM 3.375 GM/50 ML BAG IVPB ONE ×2 (10:19→18:06)
[2020-02-29] MEDS ORDERED: ACETAMINOPHEN INJECTION 100 ML IVPB ONE (11:03)
[2020-02-29 12:43] LABS: BILIRUBIN,DIRECT 0.3 mg/dL (0.0-0.2)
[2020-02-29] MEDS: SODIUM CHLORIDE 0.9% TT SCH (17:21)
[2020-02-29] MEDS ORDERED: DHA GT SCH (22:00)
[2020-02-29] MEDS ORDERED: ZINC OXIDE 20% TOPICAL OINTMENT 30 GM TUBE NR SCH (22:00)
[2020-02-29] MEDS ORDERED: PATIENT'S OWN MEDICATION (NON-FORMULARY) (Lubiprostone [Amitiza] 24 MCG) GT SCH (22:00)
[2020-02-29] MEDS ORDERED: FISH OIL GT SCH (22:00)
[2020-02-29] MEDS ORDERED: [UNRECOGNIZED DRUG - OTHER] GT SCH (22:00)
[2020-02-29] MEDS ORDERED: EPA GT SCH (22:00)
[2020-02-29] MEDS ORDERED: OMEGA GT SCH (22:00)
[2020-02-29] MEDS: BACLOFEN 10 MG TABLET (FP) GT SCH (22:29)
[2020-02-29] MEDS: LACTULOSE 20 GM/30 ML UDC (FOR ORAL USE ONLY) GT SCH (22:30)
[2020-02-29 22:56] VITALS: BMI 25.9
[2020-02-29] MEDS: ALBUTEROL SO4 HFA INHALER IH SCH (23:18)
[2020-02-29] MEDS: CALCIUM 500MG/VIT-D 200 UNITS COMBO TABLET (FP) GT SCH (23:59)
[2020-03-01] MEDS ORDERED: VANCOMYCIN 1,000 MG in DEXTROSE 5%-WATER - 250 ML IVPB SCH ×2
[2020-03-01] MEDS ORDERED: DEXTROSE 5%-WATER - 50 ML IVPB ONE ×3 (00:33→18:00)
[2020-03-01] MEDS ORDERED: PIPERACILLIN/TAZOBACTAM 3.375 GM VIAL IVPB ONE ×3 (00:33→18:00)
[2020-03-01] MEDS: PIPERACILLIN/TAZOB 3.375 GM 3.375 GM in DEXTROSE 5%-WATER - 50 ML IVPB SCH ×3 (01:44→18:51)
[2020-03-01] MEDS ORDERED: PIPERACILLIN/TAZOB 3.375 GM 3.375 GM in DEXTROSE 5%-WATER - 50 ML IVPB SCH (02:00)
[2020-03-01] MEDS: LACTULOSE 20 GM/30 ML UDC (FOR ORAL USE ONLY) GT SCH ×3 (06:31→22:30)
[2020-03-01] MEDS: BACLOFEN 10 MG TABLET (FP) GT SCH ×3 (06:31→22:30)
[2020-03-01 08:37] LABS: BASO % 0.7 % (0-2.0); EOS % 5.1 % (0-4.5); HEMATOCRIT 31.5 % (35.4-49); HEMOGLOBIN 10.7 GM/dL (11.7-16.9); LYMPH % 31.6 % (8-40); MCH 32.5 pg (25.7-33.7); MCHC 33.9 g/dl (32.0-35.9); MEAN CELL VOLUME 95.8 fl (80-96); MEAN PLT VOLUME 7.7 fl (7.5-11.1); MONO % 8.7 % (3.8-10.2); NEUT % 53.9 % (42.8-82.8); PLATELET COUNT 246 K/MM3 (134-434); RBC 3.29 M/mm3 (4.00-5.60); RDW 14.6 % (11.9-15.9); WHITE BLOOD COUNT 6.1 K/mm3 (4.0-10.0)
[2020-03-01] MEDS: SODIUM CHLORIDE 0.9% TT SCH (08:37)
[2020-03-01 08:56] LABS: ALBUMIN 2.6 g/dl (3.4-5.0); CALCIUM 9.1 mg/dL (8.5-10.1)
[2020-03-01 08:57] LABS: BLOOD UREA NITROGEN 7.8 mg/dL (7-18); MAGNESIUM 1.9 mg/dL (1.8-2.4)
[2020-03-01 09:00] LABS: CREATININE 0.5 mg/dL (0.55-1.3); PHOSPHOROUS 3.7 mg/dL (2.5-4.9)
[2020-03-01] MEDS: ALBUTEROL SO4 HFA INHALER IH SCH ×3 (09:00→16:27)
[2020-03-01 09:01] LABS: BILIRUBIN,TOTAL 1.4 mg/dL (0.2-1); TOT PROT 6.5 g/dl (6.4-8.2)
[2020-03-01] MEDS ORDERED: PT OWN MED DRAWER 7, Y5N ONE ×3 (09:33→12:22)
[2020-03-01] MEDS ORDERED: LACTATED RINGERS SOLUTION 1,000 ML with POTASSIUM CHLORIDE 40 MEQ IV ONE (10:10)
[2020-03-01] MEDS ORDERED: POLYETHYLENE GLYCOL 3350 119 GM BTL PO SCH (12:00)
[2020-03-01] MEDS: ENOXAPARIN NA (PORCINE) 40 MG/0.4 ML DISP.SYRIN SQ SCH (12:24)
[2020-03-01] MEDS: CALCIUM 500MG/VIT-D 200 UNITS COMBO TABLET (FP) GT SCH ×2 (12:24→22:31)
[2020-03-01] MEDS: ZINC OXIDE 20% TOPICAL OINTMENT 30 GM TUBE TP SCH ×2 (12:45→22:30)
[2020-03-01] MEDS ORDERED: LACTATED RINGERS SOLUTION 1,000 ML with POTASSIUM CHLORIDE 40 MEQ IV SCH (12:49)
[2020-03-01] MEDS: POTASSIUM CHLORIDE 40 MEQ in LACTATED RINGERS SOLUTION 1,000 ML IV SCH (15:13)
[2020-03-01] MEDS: ALBUTEROL SO4 2.5/IPRATROPIUM 0.5 INH SOL 3 ML VIAL.NEB. NEB SCH ×2 (15:16→20:00)
[2020-03-01] MEDS: POLYETHYLENE GLYCOL 3350 119 GM BTL GT SCH (22:30)
[2020-03-02] MEDS: ALBUTEROL SO4 HFA INHALER IH SCH ×4 (00:45→23:42)
[2020-03-02] MEDS: POTASSIUM CHLORIDE 40 MEQ in LACTATED RINGERS SOLUTION 1,000 ML IV SCH ×4 (00:46→23:43)
[2020-03-02] MEDS ORDERED: PIPERACILLIN/TAZOBACTAM 3.375 GM VIAL IVPB ONE ×3 (00:55→17:23)
[2020-03-02] MEDS ORDERED: DEXTROSE 5%-WATER - 50 ML IVPB ONE ×3 (00:55→17:23)
[2020-03-02] MEDS: PIPERACILLIN/TAZOB 3.375 GM 3.375 GM in DEXTROSE 5%-WATER - 50 ML IVPB SCH ×3 (01:55→17:26)
[2020-03-02] MEDS: LACTULOSE 20 GM/30 ML UDC (FOR ORAL USE ONLY) GT SCH ×3 (05:24→22:13)
[2020-03-02] MEDS: BACLOFEN 10 MG TABLET (FP) GT SCH ×3 (05:24→22:13)
[2020-03-02] MEDS: ALBUTEROL SO4 2.5/IPRATROPIUM 0.5 INH SOL 3 ML VIAL.NEB. NEB SCH ×4 (07:25→20:35)
[2020-03-02 09:44] LABS: BASO % 0.7 % (0-2.0); EOS % 7.1 % (0-4.5); HEMATOCRIT 31.8 % (35.4-49); HEMOGLOBIN 10.9 GM/dL (11.7-16.9); LYMPH % 37.6 % (8-40); MCH 33.4 pg (25.7-33.7); MCHC 34.2 g/dl (32.0-35.9); MEAN CELL VOLUME 97.7 fl (80-96); MEAN PLT VOLUME 7.9 fl (7.5-11.1); MONO % 9.5 % (3.8-10.2); NEUT % 45.1 % (42.8-82.8); PLATELET COUNT 238 K/MM3 (134-434); RBC 3.25 M/mm3 (4.00-5.60); RDW 14.6 % (11.9-15.9); WHITE BLOOD COUNT 3.7 K/mm3 (4.0-10.0)
[2020-03-02 09:57] LABS: POTASSIUM 3.5 mmol/L (3.5-5.1)
[2020-03-02 09:59] LABS: CALCIUM 9.2 mg/dL (8.5-10.1)
[2020-03-02 10:00] LABS: ALBUMIN 2.7 g/dl (3.4-5.0); BLOOD UREA NITROGEN 3.9 mg/dL (7-18); MAGNESIUM 1.7 mg/dL (1.8-2.4)
[2020-03-02 10:03] LABS: CREATININE 0.4 mg/dL (0.55-1.3)
[2020-03-02 10:04] LABS: BILIRUBIN,TOTAL 0.5 mg/dL (0.2-1); TOT PROT 6.4 g/dl (6.4-8.2)
[2020-03-02] MEDS: ENOXAPARIN NA (PORCINE) 40 MG/0.4 ML DISP.SYRIN SQ SCH (10:05)
[2020-03-02] MEDS: CALCIUM 500MG/VIT-D 200 UNITS COMBO TABLET (FP) GT SCH ×2 (10:11→22:14)
[2020-03-02] MEDS: POLYETHYLENE GLYCOL 3350 119 GM BTL GT SCH ×2 (10:12→22:13)
[2020-03-02] MEDS: ZINC OXIDE 20% TOPICAL OINTMENT 30 GM TUBE TP SCH ×2 (14:22→22:14)
[2020-03-02] MEDS ORDERED: MAGNESIUM 2GM/50ML STERILE WATER IVPB IVPB ONE (14:22)
[2020-03-02] MEDS: SODIUM CHLORIDE 1,000 ML IV SCH (15:16)
[2020-03-02] MEDS ORDERED: OMEGA GT SCH (22:00)
[2020-03-02] MEDS ORDERED: DHA GT SCH (22:00)
[2020-03-02] MEDS ORDERED: [UNRECOGNIZED DRUG - OTHER] GT SCH (22:00)
[2020-03-02] MEDS ORDERED: PATIENT'S OWN MEDICATION (NON-FORMULARY) (Lubiprostone [Amitiza] 24 MCG) GT SCH (22:00)
[2020-03-02] MEDS ORDERED: EPA GT SCH (22:00)
[2020-03-02] MEDS ORDERED: FISH OIL GT SCH (22:00)
[2020-03-03] MEDS ORDERED: DEXTROSE 5%-WATER - 50 ML IVPB ONE ×3 (00:57→17:32)
[2020-03-03] MEDS ORDERED: PIPERACILLIN/TAZOBACTAM 3.375 GM VIAL IVPB ONE ×3 (00:57→17:32)
[2020-03-03] MEDS: PIPERACILLIN/TAZOB 3.375 GM 3.375 GM in DEXTROSE 5%-WATER - 50 ML IVPB SCH ×3 (01:14→17:33)
[2020-03-03] MEDS: POTASSIUM CHLORIDE 40 MEQ in LACTATED RINGERS SOLUTION 1,000 ML IV SCH ×2 (04:47→17:31)
[2020-03-03] MEDS: LACTULOSE 20 GM/30 ML UDC (FOR ORAL USE ONLY) GT SCH ×3 (06:17→21:34)
[2020-03-03] MEDS: BACLOFEN 10 MG TABLET (FP) GT SCH ×3 (06:18→21:34)
[2020-03-03 07:27] LABS: BASO % 0.7 % (0-2.0); EOS % 7.7 % (0-4.5); HEMATOCRIT 34.3 % (35.4-49); HEMOGLOBIN 11.6 GM/dL (11.7-16.9); LYMPH % 38.7 % (8-40); MCH 32.3 pg (25.7-33.7); MCHC 33.7 g/dl (32.0-35.9); MEAN CELL VOLUME 95.7 fl (80-96); MEAN PLT VOLUME 7.9 fl (7.5-11.1); MONO % 9.1 % (3.8-10.2); NEUT % 43.8 % (42.8-82.8); PLATELET COUNT 256 K/MM3 (134-434); RBC 3.58 M/mm3 (4.00-5.60); RDW 14.3 % (11.9-15.9); WHITE BLOOD COUNT 4.5 K/mm3 (4.0-10.0)
[2020-03-03 07:42] LABS: POTASSIUM 3.5 mmol/L (3.5-5.1)
[2020-03-03 07:44] LABS: ALBUMIN 2.9 g/dl (3.4-5.0); CALCIUM 8.7 mg/dL (8.5-10.1)
[2020-03-03 07:47] LABS: CREATININE 0.5 mg/dL (0.55-1.3)
[2020-03-03 07:49] LABS: BILIRUBIN,TOTAL 0.6 mg/dL (0.2-1); TOT PROT 6.7 g/dl (6.4-8.2)
[2020-03-03] MEDS: ALBUTEROL SO4 2.5/IPRATROPIUM 0.5 INH SOL 3 ML VIAL.NEB. NEB SCH ×2 (08:30→13:00)
[2020-03-03 09:43] LABS: BLOOD UREA NITROGEN 2.9 mg/dL (7-18)
[2020-03-03] MEDS: POLYETHYLENE GLYCOL 3350 119 GM BTL GT SCH ×2 (10:35→21:34)
[2020-03-03] MEDS: ENOXAPARIN NA (PORCINE) 40 MG/0.4 ML DISP.SYRIN SQ SCH (10:35)
[2020-03-03] MEDS: CALCIUM 500MG/VIT-D 200 UNITS COMBO TABLET (FP) GT SCH ×2 (10:35→21:34)
[2020-03-03] MEDS: ALBUTEROL SO4 HFA INHALER IH SCH ×4 (10:35→21:33)
[2020-03-03] MEDS: ZINC OXIDE 20% TOPICAL OINTMENT 30 GM TUBE TP SCH ×2 (10:36→21:34)
[2020-03-03] MEDS: SODIUM CHLORIDE 1,000 ML IV SCH (17:30)
[2020-03-04] MEDS: POTASSIUM CHLORIDE 40 MEQ in LACTATED RINGERS SOLUTION 1,000 ML IV SCH (01:00)
[2020-03-04] MEDS ORDERED: PIPERACILLIN/TAZOBACTAM 3.375 GM VIAL IVPB ONE ×3 (05:57→17:20)
[2020-03-04] MEDS ORDERED: DEXTROSE 5%-WATER - 50 ML IVPB ONE ×3 (05:57→17:20)
[2020-03-04] MEDS: PIPERACILLIN/TAZOB 3.375 GM 3.375 GM in DEXTROSE 5%-WATER - 50 ML IVPB SCH ×3 (06:00→18:24)
[2020-03-04] MEDS: BACLOFEN 10 MG TABLET (FP) GT SCH ×3 (06:01→22:09)
[2020-03-04] MEDS: LACTULOSE 20 GM/30 ML UDC (FOR ORAL USE ONLY) GT SCH ×3 (06:01→22:09)
[2020-03-04] MEDS: ALBUTEROL SO4 HFA INHALER IH SCH ×2 (08:30→11:56)
[2020-03-04] MEDS ORDERED: PT OWN MED DRAWER 7, Y5N ONE (08:54)
[2020-03-04] MEDS: CALCIUM 500MG/VIT-D 200 UNITS COMBO TABLET (FP) GT SCH ×2 (10:31→22:09)
[2020-03-04] MEDS: ENOXAPARIN NA (PORCINE) 40 MG/0.4 ML DISP.SYRIN SQ SCH (10:32)
[2020-03-04] MEDS: ZINC OXIDE 20% TOPICAL OINTMENT 30 GM TUBE TP SCH ×2 (10:32→22:50)
[2020-03-04] MEDS: POLYETHYLENE GLYCOL 3350 119 GM BTL GT SCH ×2 (10:32→22:09)
[2020-03-04 12:08] LABS: CREATININE 0.5 mg/dL (0.55-1.3)
[2020-03-04 12:20] LABS: BLOOD UREA NITROGEN 2.3 mg/dL (7-18)
[2020-03-04] MEDS: KCL 10 MEQ IVPB 10 MEQ/100 ML INFUS.BAG IVPB SCH ×3 (13:19→16:39)
[2020-03-04] MEDS: SODIUM CHLORIDE 1,000 ML IV SCH (13:26)
[2020-03-04 15:08] LABS: MYCOPLASMA PNEUMONIAE,IG G AB 102 U/mL (0-99); MYCOPLASMA PNEUMONIAE,IGM AB <770 U/mL (0-769)
[2020-03-04] MEDS ORDERED: ALBUTEROL SO4 HFA INHALER IH PRN (16:00)
[2020-03-05] MEDS ORDERED: DEXTROSE 5%-WATER - 50 ML IVPB ONE ×3 (00:18→18:01)
[2020-03-05] MEDS ORDERED: PIPERACILLIN/TAZOBACTAM 3.375 GM VIAL IVPB ONE ×3 (00:18→18:01)
[2020-03-05] MEDS: PIPERACILLIN/TAZOB 3.375 GM 3.375 GM in DEXTROSE 5%-WATER - 50 ML IVPB SCH ×3 (02:58→18:04)
[2020-03-05] MEDS: LACTULOSE 20 GM/30 ML UDC (FOR ORAL USE ONLY) GT SCH ×3 (05:45→21:42)
[2020-03-05] MEDS: BACLOFEN 10 MG TABLET (FP) GT SCH ×3 (05:45→21:41)
[2020-03-05 09:24] LABS: BASO % 0.8 % (0-2.0); EOS % 9.6 % (0-4.5); HEMATOCRIT 36.9 % (35.4-49); HEMOGLOBIN 12.6 GM/dL (11.7-16.9); LYMPH % 45.3 % (8-40); MCH 32.4 pg (25.7-33.7); MCHC 34.3 g/dl (32.0-35.9); MEAN CELL VOLUME 94.5 fl (80-96); MEAN PLT VOLUME 7.7 fl (7.5-11.1); MONO % 13.7 % (3.8-10.2); NEUT % 30.6 % (42.8-82.8); PLATELET COUNT 258 K/MM3 (134-434); RDW 13.9 % (11.9-15.9); WHITE BLOOD COUNT 5.5 K/mm3 (4.0-10.0)
[2020-03-05 09:54] LABS: POTASSIUM 3.7 mmol/L (3.5-5.1)
[2020-03-05 09:56] LABS: BLOOD UREA NITROGEN 4.2 mg/dL (7-18)
[2020-03-05 10:00] LABS: CREATININE 0.5 mg/dL (0.55-1.3)
[2020-03-05] MEDS ORDERED: POTASSIUM CHLORIDE TABS 10 MEQ TABLET.ER (FP) PO SCH (10:00)
[2020-03-05] MEDS: CALCIUM 500MG/VIT-D 200 UNITS COMBO TABLET (FP) GT SCH (10:12)
[2020-03-05] MEDS: ENOXAPARIN NA (PORCINE) 40 MG/0.4 ML DISP.SYRIN SQ SCH (10:13)
[2020-03-05] MEDS: POLYETHYLENE GLYCOL 3350 119 GM BTL GT SCH ×2 (10:13→21:42)
[2020-03-05] MEDS: ZINC OXIDE 20% TOPICAL OINTMENT 30 GM TUBE TP SCH ×2 (10:15→22:00)
[2020-03-05] MEDS ORDERED: POTASSIUM CHLORIDE ORAL LIQUID 20 MEQ/15 ML PO SCH (11:00)
[2020-03-05] MEDS: SODIUM CHLORIDE 1,000 ML IV SCH ×2 (12:50→15:57)
[2020-03-06] MEDS ORDERED: DEXTROSE 5%-WATER - 50 ML IVPB ONE ×3 (01:00→17:35)
[2020-03-06] MEDS ORDERED: PIPERACILLIN/TAZOBACTAM 3.375 GM VIAL IVPB ONE ×3 (01:00→17:35)
[2020-03-06] MEDS: PIPERACILLIN/TAZOB 3.375 GM 3.375 GM in DEXTROSE 5%-WATER - 50 ML IVPB SCH ×3 (01:47→17:49)
[2020-03-06 08:13] LABS: BASO % 0.8 % (0-2.0); HEMATOCRIT 35.5 % (35.4-49); LYMPH % 31.8 % (8-40); MCH 31.9 pg (25.7-33.7); MCHC 33.8 g/dl (32.0-35.9); MEAN CELL VOLUME 94.3 fl (80-96); MEAN PLT VOLUME 7.9 fl (7.5-11.1); NEUT % 49.4 % (42.8-82.8); PLATELET COUNT 241 K/MM3 (134-434); RBC 3.76 M/mm3 (4.00-5.60); WHITE BLOOD COUNT 6.4 K/mm3 (4.0-10.0)
[2020-03-06 08:39] LABS: POTASSIUM 3.3 mmol/L (3.5-5.1)
[2020-03-06 08:56] LABS: CALCIUM 8.7 mg/dL (8.5-10.1)
[2020-03-06 08:57] LABS: BLOOD UREA NITROGEN 4.7 mg/dL (7-18)
[2020-03-06 09:00] LABS: CREATININE 0.4 mg/dL (0.55-1.3)
[2020-03-06 09:01] LABS: BILIRUBIN,TOTAL 1.1 mg/dL (0.2-1)
[2020-03-06 09:02] LABS: MAGNESIUM 1.9 mg/dL (1.8-2.4)
[2020-03-06 09:05] LABS: PHOSPHOROUS 4.2 mg/dL (2.5-4.9)
[2020-03-06] MEDS: ENOXAPARIN NA (PORCINE) 40 MG/0.4 ML DISP.SYRIN SQ SCH (10:23)
[2020-03-06] MEDS: POLYETHYLENE GLYCOL 3350 119 GM BTL GT SCH ×2 (10:23→21:50)
[2020-03-06] MEDS: ZINC OXIDE 20% TOPICAL OINTMENT 30 GM TUBE TP SCH ×2 (10:24→21:45)
[2020-03-06] MEDS ORDERED: POTASSIUM CHLORIDE ORAL LIQUID 20 MEQ/15 ML PO ONE (10:52)
[2020-03-06] MEDS: SODIUM CHLORIDE 1,000 ML IV SCH (11:03)
[2020-03-06] MEDS: KCL 10 MEQ IVPB 10 MEQ/100 ML INFUS.BAG IVPB SCH ×3 (11:19→14:46)
[2020-03-06] MEDS: BACLOFEN 10 MG TABLET (FP) GT SCH ×3 (14:29→21:45)
[2020-03-06] MEDS: LACTULOSE 20 GM/30 ML UDC (FOR ORAL USE ONLY) GT SCH ×3 (14:29→21:45)
[2020-03-07] MEDS ORDERED: DEXTROSE 5%-WATER - 50 ML IVPB ONE ×3 (00:57→17:45)
[2020-03-07] MEDS ORDERED: PIPERACILLIN/TAZOBACTAM 3.375 GM VIAL IVPB ONE ×3 (00:57→17:45)
[2020-03-07] MEDS: PIPERACILLIN/TAZOB 3.375 GM 3.375 GM in DEXTROSE 5%-WATER - 50 ML IVPB SCH ×3 (01:03→17:47)
[2020-03-07] MEDS: LACTULOSE 20 GM/30 ML UDC (FOR ORAL USE ONLY) GT SCH ×3 (05:16→21:23)
[2020-03-07] MEDS: BACLOFEN 10 MG TABLET (FP) GT SCH ×3 (05:16→21:23)
[2020-03-07 07:50] LABS: BASO % 0.7 % (0-2.0); EOS % 11.1 % (0-4.5); HEMATOCRIT 36.3 % (35.4-49); HEMOGLOBIN 12.4 GM/dL (11.7-16.9); LYMPH % 43.4 % (8-40); MCH 32.2 pg (25.7-33.7); MCHC 34.1 g/dl (32.0-35.9); MEAN CELL VOLUME 94.4 fl (80-96); MEAN PLT VOLUME 8.1 fl (7.5-11.1); MONO % 13.1 % (3.8-10.2); NEUT % 31.7 % (42.8-82.8); PLATELET COUNT 284 K/MM3 (134-434); RBC 3.85 M/mm3 (4.00-5.60); RDW 14.2 % (11.9-15.9); WHITE BLOOD COUNT 4.7 K/mm3 (4.0-10.0)
[2020-03-07 08:11] LABS: POTASSIUM 3.8 mmol/L (3.5-5.1)
[2020-03-07 08:29] LABS: BLOOD UREA NITROGEN 5.9 mg/dL (7-18)
[2020-03-07 08:32] LABS: CREATININE 0.5 mg/dL (0.55-1.3)
[2020-03-07] MEDS: POLYETHYLENE GLYCOL 3350 119 GM BTL GT SCH ×2 (10:10→21:22)
[2020-03-07] MEDS: ENOXAPARIN NA (PORCINE) 40 MG/0.4 ML DISP.SYRIN SQ SCH (10:10)
[2020-03-07] MEDS: ZINC OXIDE 20% TOPICAL OINTMENT 30 GM TUBE TP SCH ×2 (10:11→21:23)
[2020-03-08] MEDS ORDERED: DEXTROSE 5%-WATER - 50 ML IVPB ONE ×3 (01:15→17:31)
[2020-03-08] MEDS ORDERED: PIPERACILLIN/TAZOBACTAM 3.375 GM VIAL IVPB ONE ×3 (01:15→17:30)
[2020-03-08] MEDS: PIPERACILLIN/TAZOB 3.375 GM 3.375 GM in DEXTROSE 5%-WATER - 50 ML IVPB SCH ×3 (01:23→17:38)
[2020-03-08] MEDS: BACLOFEN 10 MG TABLET (FP) GT SCH ×3 (05:30→21:37)
[2020-03-08] MEDS: LACTULOSE 20 GM/30 ML UDC (FOR ORAL USE ONLY) GT SCH ×3 (05:30→21:37)
[2020-03-08 07:50] LABS: BASO % 0.9 % (0-2.0); EOS % 8.2 % (0-4.5); HEMATOCRIT 38.7 % (35.4-49); HEMOGLOBIN 12.9 GM/dL (11.7-16.9); MCH 31.7 pg (25.7-33.7); MCHC 33.4 g/dl (32.0-35.9); MONO % 10.1 % (3.8-10.2); NEUT % 38.8 % (42.8-82.8); PLATELET COUNT 337 K/MM3 (134-434); RBC 4.07 M/mm3 (4.00-5.60); RDW 14.1 % (11.9-15.9)
[2020-03-08 08:08] LABS: POTASSIUM 3.7 mmol/L (3.5-5.1)
[2020-03-08 08:09] LABS: CALCIUM 9.3 mg/dL (8.5-10.1)
[2020-03-08 08:10] LABS: BLOOD UREA NITROGEN 8.1 mg/dL (7-18)
[2020-03-08 08:12] LABS: CREATININE 0.7 mg/dL (0.55-1.3)
[2020-03-08] MEDS ORDERED: PT OWN MED DRAWER 7, Y5N ONE ×2 (09:48→21:36)
[2020-03-08] MEDS: ENOXAPARIN NA (PORCINE) 40 MG/0.4 ML DISP.SYRIN SQ SCH (09:54)
[2020-03-08] MEDS: ZINC OXIDE 20% TOPICAL OINTMENT 30 GM TUBE TP SCH ×2 (09:54→21:39)
[2020-03-08] MEDS: SENNOSIDES 8.8 MG/5 ML BULK BOTTLE PO SCH (21:37)
[2020-03-08] MEDS: POLYETHYLENE GLYCOL 3350 119 GM BTL GT SCH (21:38)
[2020-03-09] MEDS ORDERED: PIPERACILLIN/TAZOBACTAM 3.375 GM VIAL IVPB ONE ×2 (00:48→09:46)
[2020-03-09] MEDS ORDERED: DEXTROSE 5%-WATER - 50 ML IVPB ONE ×2 (00:48→09:46)
[2020-03-09] MEDS: PIPERACILLIN/TAZOB 3.375 GM 3.375 GM in DEXTROSE 5%-WATER - 50 ML IVPB SCH ×2 (02:00→09:48)
[2020-03-09] MEDS: LACTULOSE 20 GM/30 ML UDC (FOR ORAL USE ONLY) GT SCH ×2 (05:19→21:12)
[2020-03-09] MEDS: BACLOFEN 10 MG TABLET (FP) GT SCH ×2 (05:19→21:13)
[2020-03-09 08:13] LABS: BASO % 0.8 % (0-2.0); EOS % 6.8 % (0-4.5); HEMATOCRIT 36.9 % (35.4-49); HEMOGLOBIN 12.6 GM/dL (11.7-16.9); MEAN CELL VOLUME 94.2 fl (80-96); MEAN PLT VOLUME 7.9 fl (7.5-11.1); MONO % 10.6 % (3.8-10.2); NEUT % 35.8 % (42.8-82.8); PLATELET COUNT 325 K/MM3 (134-434); RBC 3.92 M/mm3 (4.00-5.60); RDW 14.1 % (11.9-15.9); WHITE BLOOD COUNT 6.3 K/mm3 (4.0-10.0)
[2020-03-09 08:33] LABS: POTASSIUM 3.6 mmol/L (3.5-5.1)
[2020-03-09 08:36] LABS: ALBUMIN 3.4 g/dl (3.4-5.0); CALCIUM 9.6 mg/dL (8.5-10.1)
[2020-03-09 08:37] LABS: BLOOD UREA NITROGEN 9.8 mg/dL (7-18)
[2020-03-09 08:40] LABS: BILIRUBIN,TOTAL 0.4 mg/dL (0.2-1); CREATININE 0.6 mg/dL (0.55-1.3); TOT PROT 7.6 g/dl (6.4-8.2)
[2020-03-09] MEDS: ENOXAPARIN NA (PORCINE) 40 MG/0.4 ML DISP.SYRIN SQ SCH (09:49)
[2020-03-09] MEDS: POLYETHYLENE GLYCOL 3350 119 GM BTL GT SCH ×2 (09:49→21:13)
[2020-03-09] MEDS: ZINC OXIDE 20% TOPICAL OINTMENT 30 GM TUBE TP SCH ×2 (09:49→21:14)
[2020-03-09] MEDS ORDERED: PT OWN MED DRAWER 7, Y5N ONE (20:20)
[2020-03-09] MEDS: SENNOSIDES 8.8 MG/5 ML BULK BOTTLE PO SCH (21:13)
[2020-03-10] MEDS ORDERED: DEXTROSE 5%-WATER - 50 ML IVPB ONE ×3 (00:38→17:05)
[2020-03-10] MEDS ORDERED: PIPERACILLIN/TAZOBACTAM 3.375 GM VIAL IVPB ONE ×3 (00:38→17:05)
[2020-03-10] MEDS: PIPERACILLIN/TAZOB 3.375 GM 3.375 GM in DEXTROSE 5%-WATER - 50 ML IVPB SCH ×3 (02:00→17:14)
[2020-03-10] MEDS: BACLOFEN 10 MG TABLET (FP) GT SCH ×3 (05:35→23:10)
[2020-03-10] MEDS: LACTULOSE 20 GM/30 ML UDC (FOR ORAL USE ONLY) GT SCH ×3 (05:35→23:08)
[2020-03-10] MEDS ORDERED: PT OWN MED DRAWER 7, Y5N ONE ×2 (09:31→23:05)
[2020-03-10] MEDS: ENOXAPARIN NA (PORCINE) 40 MG/0.4 ML DISP.SYRIN SQ SCH (09:36)
[2020-03-10] MEDS: POLYETHYLENE GLYCOL 3350 119 GM BTL GT SCH ×2 (09:37→23:10)
[2020-03-10] MEDS: ZINC OXIDE 20% TOPICAL OINTMENT 30 GM TUBE TP SCH ×2 (09:37→23:10)
[2020-03-10] MEDS: SENNOSIDES 8.8 MG/5 ML BULK BOTTLE PO SCH (23:09)
[2020-03-11] MEDS ORDERED: DEXTROSE 5%-WATER - 50 ML IVPB ONE ×2 (05:17→09:32)
[2020-03-11] MEDS ORDERED: PIPERACILLIN/TAZOBACTAM 3.375 GM VIAL IVPB ONE ×2 (05:17→09:31)
[2020-03-11] MEDS: PIPERACILLIN/TAZOB 3.375 GM 3.375 GM in DEXTROSE 5%-WATER - 50 ML IVPB SCH ×2 (05:20→09:37)
[2020-03-11] MEDS: POLYETHYLENE GLYCOL 3350 119 GM BTL GT SCH (09:38)
[2020-03-11] MEDS: ENOXAPARIN NA (PORCINE) 40 MG/0.4 ML DISP.SYRIN SQ SCH (09:38)
[2020-03-11] MEDS: ZINC OXIDE 20% TOPICAL OINTMENT 30 GM TUBE TP SCH (09:39)
[2020-03-11] MEDS: LACTULOSE 20 GM/30 ML UDC (FOR ORAL USE ONLY) GT SCH (14:19)
[2020-03-11] MEDS: BACLOFEN 10 MG TABLET (FP) GT SCH (14:20)
[2020-03-11 14:28] VITALS: BP 155/77; PULSE 62; TEMP 97.4
== END 2020-03-11 17:48 | disposition home or self-care (01) | DRG 871 ==
LOC: JER 21:46 → JERBED 02-29 01:03 → J5S 02-29 20:55 → J4W 03-02 15:51 → J6S 03-04 12:31
PROVIDERS: ADMIT Internal Medicine
DX: A41.52 Sepsis due to Pseudomonas (principal); J69.0 Pneumonitis due to inhalation of food and vomit; J96.21 Acute and chronic respiratory failure with hypoxia; G80.0 Spastic quadriplegic cerebral palsy; F73 Profound intellectual disabilities; I50.42 Chronic combined systolic (congestive) and diastolic (congestive) heart failure; G40.909 Epilepsy, unspecified, not intractable, without status epilepticus; Z93.1 Gastrostomy status; Z93.0 Tracheostomy status; Q02 Microcephaly; T68.XXXA Hypothermia, initial encounter; K59.09 Other constipation; N28.1 Cyst of kidney, acquired; E80.6 Other disorders of bilirubin metabolism; N18.9 Chronic kidney disease, unspecified; E87.6 Hypokalemia; D72.829 Elevated white blood cell count, unspecified; R00.1 Bradycardia, unspecified; D64.9 Anemia, unspecified; E83.39 Other disorders of phosphorus metabolism
CPT/HCPCS: 36415; 71045-TC-FY; 74176-TC; 76705-TC; 80048; 80053; 80076; 81003; 82550; 82803; 83605; 83735; 83880; 84100; 84439; 84443; 84484; 85025; 85610; 85730; 86738; 86850; 86900; 86901; 86922; 87040; 87070; 87086; 87186; 87205; 87804; 87899; 93005; 93010; 93225; 93226; 93306-TC; 94640; 99285-25; C9803; J0131; J0475; U0003

== ENCOUNTER 2020-07-20 08:43 | Inpatient (IN) | payer OTHER ==
[2020-07-20] MEDS ORDERED: VANCOMYCIN 1 GM in D5W (PRE-DOCKED) 1,000 MG/250 ML IVPB ONE (09:28)
[2020-07-20] MEDS ORDERED: SODIUM CHLORIDE 1,000 ML IV STA (09:38)
[2020-07-20 09:53] LABS: VENOUS BASE EXCESS 10.3 mmol/L (-2-2); VENOUS O2 SATURATION 97.4 % (70-80); VENOUS PCO2 63.2 mmHg (38-52); VENOUS PH 7.395 (7.310-7.410)
[2020-07-20] MEDS ORDERED: PIPERACILLIN/TAZOB 2.25 GM 2.25 GM/50 ML BAG IVPB ONE (09:54)
[2020-07-20] MEDS ORDERED: VANCOMYCIN 1 GRAM (PRE-DOCKED) 1,000 MG/250 ML BAG IVPB ONE (09:55)
[2020-07-20] MEDS ORDERED: PIPERACILLIN/TAZOB 2.25 GM 2.25 GM in DEXTROSE 5%-WATER - 50 ML IVPB SCH (10:00)
[2020-07-20 10:02] LABS: BASO % 0.2 % (0-2.0); EOS % 3.3 % (0-4.5); HEMATOCRIT 36.8 % (35.4-49); HEMOGLOBIN 12.5 GM/dL (11.7-16.9); LYMPH % 26.3 % (8-40); MCH 31.9 pg (25.7-33.7); MCHC 33.9 g/dl (32.0-35.9); MEAN PLT VOLUME 8.8 fl (7.5-11.1); MONO % 6.4 % (3.8-10.2); NEUT % 63.8 % (42.8-82.8); PLATELET COUNT 227 K/MM3 (134-434); RBC 3.91 M/mm3 (4.00-5.60); WHITE BLOOD COUNT 4.6 K/mm3 (4.0-10.0)
[2020-07-20 10:13] LABS: INR 0.93 (0.83-1.09); PROTHROMBIN TIME (PATIENT) 11.3 SEC (9.7-13.0)
[2020-07-20 10:15] LABS: ACTIVATED PTT 43.2 SECONDS (25.2-36.5)
[2020-07-20 10:23] LABS: CHLORIDE 99 mmol/L (98-107); SODIUM 140 mmol/L (136-145)
[2020-07-20 10:24] LABS: ANION GAP 3 MMOL/L (8-16); CALCIUM 9.7 mg/dL (8.5-10.1); CO2 37 mmol/L (21-32)
[2020-07-20 10:25] LABS: ALBUMIN 2.6 g/dl (3.4-5.0); BLOOD UREA NITROGEN 27.6 mg/dL (7-18); GLUCOSE,RANDOM 81 mg/dL (74-106)
[2020-07-20 10:28] LABS: CREATININE 0.5 mg/dL (0.55-1.3); SGOT/AST 43 U/L (15-37); SGPT/ALT 63 U/L (13-61)
[2020-07-20 10:29] LABS: BILIRUBIN,TOTAL 0.3 mg/dL (0.2-1); TOT PROT 6.6 g/dl (6.4-8.2)
[2020-07-20 10:31] LABS: ALK PHOS 144 U/L (45-117)
[2020-07-20] MEDS ORDERED: levETIRAcetam 500 MG/5 ML INJECTION VIAL IVPB ONE (10:40)
[2020-07-20 11:04] LABS: URINE APPEARANCE CLOUDY; URINE BILIRUBIN NEGATIVE (NEGATIVE); URINE COLOR YELLOW; URINE GLUCOSE (UA) NEGATIVE (NEGATIVE); URINE KETONE NEGATIVE (NEGATIVE); URINE LEUK ESTERASE NEGATIVE (NEGATIVE); URINE NITRITE NEGATIVE (NEGATIVE); URINE PROTEIN NEGATIVE (NEGATIVE); URINE UROBILINOGEN 0.2 mg/dL (0.2-1.0)
[2020-07-20] MEDS ORDERED: PIPERACILLIN/TAZOB 3.375 GM 3.375 GM in DEXTROSE 5%-WATER - 50 ML IVPB ONE (11:57)
[2020-07-20] MEDS ORDERED: PIPERACILLIN/TAZOB 3.375 GM 3.375 GM/50 ML BAG IVPB ONE (12:36)
[2020-07-20] MEDS: ENOXAPARIN NA (PORCINE) 40 MG/0.4 ML DISP.SYRIN SQ SCH (12:41)
[2020-07-20] MEDS ORDERED: LACTATED RINGERS SOLUTION 1000 ML INFUS.BAG IV ONE (12:42)
[2020-07-20] MEDS: SCOPOLAMINE HYDROBROMIDE 1 PATCH PATCH.TD72 TD SCH (12:48)
[2020-07-20] MEDS: LACTULOSE 20 GM/30 ML UDC (FOR ORAL USE ONLY) GT SCH (14:00)
[2020-07-20] MEDS: BACLOFEN 10 MG TABLET (FP) GT SCH (14:00)
[2020-07-20] MEDS ORDERED: LACTULOSE 20 GM/30 ML UDC (FOR ORAL USE ONLY) ONE ×2 (14:15→22:09)
[2020-07-20] MEDS ORDERED: BACLOFEN 10 MG TABLET (FP) ONE ×2 (14:16→22:09)
[2020-07-20] MEDS ORDERED: SODIUM CHLORIDE 0.9% 1000 ML INFUS.BAG IV ONE (14:41)
[2020-07-20] MEDS ORDERED: NOREPINEPHRINE BITARTRATE 8,000 MCG/500 ML BAG IVPB SCH (14:45)
[2020-07-20] MEDS ORDERED: NOREPINEPHRINE BITARTRATE 4 MG/4 ML ML IV ONE ×2 (17:28→19:11)
[2020-07-20] MEDS: NOREPINEPHRINE NS PREMIX 8,000 MCG/500 ML BAG IVPB SCH (17:45)
[2020-07-20] MEDS ORDERED: levETIRAcetam 500 MG TABLET (FP) PO SCH (22:00)
[2020-07-21] MEDS: BACLOFEN 10 MG TABLET (FP) GT SCH ×4 (02:12→23:56)
[2020-07-21] MEDS: levETIRAcetam 500 MG/5 ML ORAL SOLUTION (UNIT-DOSE CUPS) PEG SCH ×3 (02:12→23:56)
[2020-07-21] MEDS: LACTULOSE 20 GM/30 ML UDC (FOR ORAL USE ONLY) GT SCH ×4 (02:13→21:03)
[2020-07-21] MEDS: POLYETHYLENE GLYCOL 3350 119 GM BTL GT SCH ×3 (02:13→21:03)
[2020-07-21] MEDS ORDERED: PIPERACILLIN/TAZOBACTAM 3.375 GM VIAL IVPB ONE ×4 (02:24→22:55)
[2020-07-21] MEDS ORDERED: DEXTROSE 5%-WATER - 50 ML IVPB ONE ×4 (02:24→22:55)
[2020-07-21] MEDS: PIPERACILLIN/TAZOB 3.375 GM 3.375 GM in DEXTROSE 5%-WATER - 50 ML IVPB SCH ×4 (02:36→19:44)
[2020-07-21 06:28] LABS: BASO % 0.5 % (0-2.0); EOS % 3.3 % (0-4.5); HEMATOCRIT 31.1 % (35.4-49); HEMOGLOBIN 10.5 GM/dL (11.7-16.9); LYMPH % 40.8 % (8-40); MCH 32.1 pg (25.7-33.7); MCHC 33.9 g/dl (32.0-35.9); MEAN CELL VOLUME 94.5 fl (80-96); MONO % 8.3 % (3.8-10.2); NEUT % 47.1 % (42.8-82.8); PLATELET COUNT 205 K/MM3 (134-434); RBC 3.29 M/mm3 (4.00-5.60); RDW 18.5 % (11.9-15.9); WHITE BLOOD COUNT 4.2 K/mm3 (4.0-10.0)
[2020-07-21 06:33] LABS: POTASSIUM 3.8 mmol/L (3.5-5.1)
[2020-07-21 06:39] LABS: ALBUMIN 2.1 g/dl (3.4-5.0); BLOOD UREA NITROGEN 15.4 mg/dL (7-18)
[2020-07-21 06:41] LABS: CREATININE 0.5 mg/dL (0.55-1.3)
[2020-07-21 06:42] LABS: PHOSPHOROUS 3.3 mg/dL (2.5-4.9)
[2020-07-21 06:43] LABS: BILIRUBIN,TOTAL 0.3 mg/dL (0.2-1); TOT PROT 5.2 g/dl (6.4-8.2)
[2020-07-21 07:04] LABS: CALCIUM 8.2 mg/dL (8.5-10.1)
[2020-07-21] MEDS ORDERED: PT OWN MED DRAWER 7, Y5N ONE ×9 (09:22→22:54)
[2020-07-21] MEDS: ENOXAPARIN NA (PORCINE) 40 MG/0.4 ML DISP.SYRIN SQ SCH (09:28)
[2020-07-21] MEDS: CALCIUM CARBONATE SUSPENSION - 1250 MG/5 ML ML GT SCH (11:43)
[2020-07-21] MEDS: CHOLECALCIFEROL (VIT D SOLUTION) 400 UNIT/1 ML DROPS GT SCH (11:44)
[2020-07-21] MEDS: NOREPINEPHRINE NS PREMIX 8,000 MCG/500 ML BAG IVPB SCH (19:00)
[2020-07-21] MEDS: EPA GT SCH ×2 (19:06→19:07)
[2020-07-21] MEDS: DHA GT SCH ×2 (19:06→19:07)
[2020-07-21] MEDS: FISH OIL GT SCH ×2 (19:06→19:07)
[2020-07-21] MEDS: [UNRECOGNIZED DRUG - OTHER] GT SCH ×2 (19:06→19:07)
[2020-07-21] MEDS: OMEGA GT SCH ×2 (19:06→19:07)
[2020-07-21] MEDS: PATIENT'S OWN MEDICATION (NON-FORMULARY) (Lubiprostone [Amitiza] 24 MCG Capsule) GT SCH (19:07)
[2020-07-22] MEDS: PIPERACILLIN/TAZOB 3.375 GM 3.375 GM in DEXTROSE 5%-WATER - 50 ML IVPB SCH ×3 (01:16→17:36)
[2020-07-22 06:39] LABS: BASO % 0.5 % (0-2.0); EOS % 3.3 % (0-4.5); HEMATOCRIT 31.5 % (35.4-49); HEMOGLOBIN 10.9 GM/dL (11.7-16.9); LYMPH % 19.1 % (8-40); MCH 32.7 pg (25.7-33.7); MCHC 34.7 g/dl (32.0-35.9); MEAN CELL VOLUME 94.3 fl (80-96); MEAN PLT VOLUME 8.5 fl (7.5-11.1); MONO % 7.7 % (3.8-10.2); NEUT % 69.4 % (42.8-82.8); PLATELET COUNT 187 K/MM3 (134-434); RBC 3.33 M/mm3 (4.00-5.60); RDW 18.6 % (11.9-15.9); WHITE BLOOD COUNT 5.4 K/mm3 (4.0-10.0)
[2020-07-22] MEDS: LACTULOSE 20 GM/30 ML UDC (FOR ORAL USE ONLY) GT SCH ×3 (06:56→21:30)
[2020-07-22] MEDS: BACLOFEN 10 MG TABLET (FP) GT SCH ×3 (06:56→21:31)
[2020-07-22 06:58] LABS: POTASSIUM 3.1 mmol/L (3.5-5.1)
[2020-07-22 07:01] LABS: CALCIUM 8.6 mg/dL (8.5-10.1)
[2020-07-22 07:02] LABS: ALBUMIN 2.3 g/dl (3.4-5.0); BLOOD UREA NITROGEN 10.3 mg/dL (7-18); MAGNESIUM 1.9 mg/dL (1.8-2.4)
[2020-07-22 07:04] LABS: PHOSPHOROUS 3.6 mg/dL (2.5-4.9)
[2020-07-22 07:05] LABS: CREATININE 0.7 mg/dL (0.55-1.3)
[2020-07-22 07:06] LABS: BILIRUBIN,TOTAL 0.6 mg/dL (0.2-1); TOT PROT 5.7 g/dl (6.4-8.2)
[2020-07-22] MEDS ORDERED: KCL 10 MEQ IVPB 10 MEQ/100 ML INFUS.BAG IVPB SCH (08:15)
[2020-07-22] MEDS ORDERED: POTASSIUM CHLORIDE ORAL LIQUID 20 MEQ/15 ML PO ONE (08:15)
[2020-07-22] MEDS ORDERED: MIDODRINE HCL 2.5 MG TABLET GT ONE (08:15)
[2020-07-22] MEDS ORDERED: PT OWN MED DRAWER 7, Y5N ONE ×4 (08:49→19:13)
[2020-07-22] MEDS ORDERED: MIDODRINE HCL 5 MG TABLET PO SCH (10:00)
[2020-07-22] MEDS ORDERED: DEXTROSE 5%-WATER - 50 ML IVPB ONE ×2 (10:08→17:29)
[2020-07-22] MEDS ORDERED: PIPERACILLIN/TAZOBACTAM 3.375 GM VIAL IVPB ONE ×2 (10:08→17:29)
[2020-07-22] MEDS: CHOLECALCIFEROL (VIT D SOLUTION) 400 UNIT/1 ML DROPS GT SCH (10:14)
[2020-07-22] MEDS: levETIRAcetam 500 MG/5 ML ORAL SOLUTION (UNIT-DOSE CUPS) PEG SCH ×2 (10:14→21:30)
[2020-07-22] MEDS: CALCIUM CARBONATE SUSPENSION - 1250 MG/5 ML ML GT SCH (10:15)
[2020-07-22] MEDS: ENOXAPARIN NA (PORCINE) 40 MG/0.4 ML DISP.SYRIN SQ SCH (10:15)
[2020-07-22] MEDS: POLYETHYLENE GLYCOL 3350 119 GM BTL GT SCH ×2 (10:36→21:32)
[2020-07-22] MEDS ORDERED: SODIUM CHLORIDE 1,000 ML IV STA (12:13)
[2020-07-22] MEDS: NOREPINEPHRINE NS PREMIX 8,000 MCG/500 ML BAG IVPB SCH (21:21)
[2020-07-23] MEDS ORDERED: DEXTROSE 5%-WATER - 50 ML IVPB ONE ×4 (01:16→21:20)
[2020-07-23] MEDS ORDERED: PIPERACILLIN/TAZOBACTAM 3.375 GM VIAL IVPB ONE ×4 (01:16→21:20)
[2020-07-23] MEDS: PIPERACILLIN/TAZOB 3.375 GM 3.375 GM in DEXTROSE 5%-WATER - 50 ML IVPB SCH ×3 (02:14→18:48)
[2020-07-23] MEDS: LACTULOSE 20 GM/30 ML UDC (FOR ORAL USE ONLY) GT SCH ×3 (06:09→21:33)
[2020-07-23] MEDS: BACLOFEN 10 MG TABLET (FP) GT SCH ×3 (06:31→21:32)
[2020-07-23 06:55] LABS: BASO % 0.7 % (0-2.0); EOS % 3.1 % (0-4.5); HEMATOCRIT 31.8 % (35.4-49); HEMOGLOBIN 10.9 GM/dL (11.7-16.9); LYMPH % 23.2 % (8-40); MCH 32.3 pg (25.7-33.7); MCHC 34.2 g/dl (32.0-35.9); MEAN CELL VOLUME 94.6 fl (80-96); MEAN PLT VOLUME 8.1 fl (7.5-11.1); PLATELET COUNT 164 K/MM3 (134-434); RBC 3.36 M/mm3 (4.00-5.60); RDW 18.6 % (11.9-15.9); WHITE BLOOD COUNT 3.4 K/mm3 (4.0-10.0)
[2020-07-23 07:14] LABS: POTASSIUM 3.5 mmol/L (3.5-5.1)
[2020-07-23 07:20] LABS: CALCIUM 8.7 mg/dL (8.5-10.1)
[2020-07-23 07:21] LABS: ALBUMIN 2.1 g/dl (3.4-5.0); BLOOD UREA NITROGEN 7.4 mg/dL (7-18); MAGNESIUM 1.9 mg/dL (1.8-2.4)
[2020-07-23 07:22] LABS: CREATININE 0.6 mg/dL (0.55-1.3); PHOSPHOROUS 2.8 mg/dL (2.5-4.9)
[2020-07-23 07:24] LABS: BILIRUBIN,TOTAL 0.6 mg/dL (0.2-1); TOT PROT 5.6 g/dl (6.4-8.2)
[2020-07-23] MEDS ORDERED: PT OWN MED DRAWER 7, Y5N ONE (08:33)
[2020-07-23] MEDS: ENOXAPARIN NA (PORCINE) 40 MG/0.4 ML DISP.SYRIN SQ SCH (09:05)
[2020-07-23] MEDS: levETIRAcetam 500 MG/5 ML ORAL SOLUTION (UNIT-DOSE CUPS) PEG SCH ×2 (09:05→21:32)
[2020-07-23] MEDS: POLYETHYLENE GLYCOL 3350 119 GM BTL GT SCH ×2 (09:05→21:33)
[2020-07-23] MEDS: CALCIUM CARBONATE SUSPENSION - 1250 MG/5 ML ML GT SCH (09:05)
[2020-07-23] MEDS: CHOLECALCIFEROL (VIT D SOLUTION) 400 UNIT/1 ML DROPS GT SCH (09:05)
[2020-07-23] MEDS: SCOPOLAMINE HYDROBROMIDE 1 PATCH PATCH.TD72 TD SCH (13:02)
[2020-07-23] MEDS: NOREPINEPHRINE NS PREMIX 8,000 MCG/500 ML BAG IVPB SCH (21:35)
[2020-07-24] MEDS: CHOLECALCIFEROL (VIT D SOLUTION) 400 UNIT/1 ML DROPS GT SCH (01:00)
[2020-07-24] MEDS: PIPERACILLIN/TAZOB 3.375 GM 3.375 GM in DEXTROSE 5%-WATER - 50 ML IVPB SCH ×3 (03:00→18:00)
[2020-07-24] MEDS ORDERED: LACTATED RINGERS SOLUTION 1,000 ML/1,000 ML INFUS.BAG IV SCH (05:00)
[2020-07-24] MEDS ORDERED: PT OWN MED DRAWER 7, Y5N ONE ×2 (05:54→22:12)
[2020-07-24] MEDS: BACLOFEN 10 MG TABLET (FP) GT SCH ×3 (05:59→22:13)
[2020-07-24] MEDS: LACTULOSE 20 GM/30 ML UDC (FOR ORAL USE ONLY) GT SCH ×4 (06:01→22:07)
[2020-07-24 07:02] LABS: BASO % 0.8 % (0-2.0); EOS % 5.2 % (0-4.5); HEMATOCRIT 30.7 % (35.4-49); HEMOGLOBIN 10.6 GM/dL (11.7-16.9); LYMPH % 33.6 % (8-40); MCH 32.3 pg (25.7-33.7); MCHC 34.6 g/dl (32.0-35.9); MEAN CELL VOLUME 93.4 fl (80-96); MEAN PLT VOLUME 8.1 fl (7.5-11.1); MONO % 18.4 % (3.8-10.2); PLATELET COUNT 171 K/MM3 (134-434); RBC 3.28 M/mm3 (4.00-5.60); RDW 18.5 % (11.9-15.9); WHITE BLOOD COUNT 3.4 K/mm3 (4.0-10.0)
[2020-07-24 07:17] LABS: POTASSIUM 3.3 mmol/L (3.5-5.1)
[2020-07-24 07:24] LABS: ALBUMIN 2.1 g/dl (3.4-5.0); BLOOD UREA NITROGEN 7.1 mg/dL (7-18); CALCIUM 8.5 mg/dL (8.5-10.1); MAGNESIUM 1.8 mg/dL (1.8-2.4)
[2020-07-24 07:27] LABS: CREATININE 0.6 mg/dL (0.55-1.3); PHOSPHOROUS 3.3 mg/dL (2.5-4.9)
[2020-07-24 07:29] LABS: BILIRUBIN,TOTAL 0.6 mg/dL (0.2-1); TOT PROT 5.4 g/dl (6.4-8.2)
[2020-07-24] MEDS: KCL 10 MEQ IVPB 10 MEQ/100 ML INFUS.BAG IVPB SCH ×3 (08:17→10:43)
[2020-07-24] MEDS ORDERED: PIPERACILLIN/TAZOBACTAM 3.375 GM VIAL IVPB ONE ×2 (09:09→18:34)
[2020-07-24] MEDS ORDERED: DEXTROSE 5%-WATER - 50 ML IVPB ONE ×2 (09:10→18:35)
[2020-07-24] MEDS: ENOXAPARIN NA (PORCINE) 40 MG/0.4 ML DISP.SYRIN SQ SCH (10:49)
[2020-07-24] MEDS: levETIRAcetam 500 MG/5 ML ORAL SOLUTION (UNIT-DOSE CUPS) PEG SCH ×2 (10:50→22:13)
[2020-07-24] MEDS: POLYETHYLENE GLYCOL 3350 119 GM BTL GT SCH ×2 (10:51→22:13)
[2020-07-24] MEDS: CALCIUM CARBONATE SUSPENSION - 1250 MG/5 ML ML GT SCH (11:00)
[2020-07-24] MEDS: MIDODRINE HCL 5 MG TABLET PO SCH ×3 (12:29→18:30)
[2020-07-24] MEDS ORDERED: SODIUM CHLORIDE 500 ML IV STA (17:09)
[2020-07-24] MEDS: NOREPINEPHRINE NS PREMIX 8,000 MCG/500 ML BAG IVPB SCH (18:30)
[2020-07-25] MEDS ORDERED: PIPERACILLIN/TAZOBACTAM 3.375 GM VIAL IVPB ONE ×3 (00:59→17:03)
[2020-07-25] MEDS ORDERED: DEXTROSE 5%-WATER - 50 ML IVPB ONE ×3 (00:59→17:03)
[2020-07-25] MEDS: PIPERACILLIN/TAZOB 3.375 GM 3.375 GM in DEXTROSE 5%-WATER - 50 ML IVPB SCH ×3 (01:17→17:47)
[2020-07-25 07:02] LABS: HEMOGLOBIN 10.5 GM/dL (11.7-16.9); MCH 32.7 pg (25.7-33.7); MCHC 34.9 g/dl (32.0-35.9); MEAN CELL VOLUME 93.8 fl (80-96); MEAN PLT VOLUME 8.7 fl (7.5-11.1); PLATELET COUNT 153 K/MM3 (134-434); RDW 18.4 % (11.9-15.9)
[2020-07-25 07:14] LABS: POTASSIUM 3.6 mmol/L (3.5-5.1)
[2020-07-25 07:17] LABS: BLOOD UREA NITROGEN 7.3 mg/dL (7-18); CALCIUM 8.3 mg/dL (8.5-10.1)
[2020-07-25 07:18] LABS: MAGNESIUM 1.7 mg/dL (1.8-2.4)
[2020-07-25 07:20] LABS: CREATININE 0.5 mg/dL (0.55-1.3)
[2020-07-25 07:21] LABS: PHOSPHOROUS 3.2 mg/dL (2.5-4.9)
[2020-07-25] MEDS ORDERED: MAGNESIUM SULF 50% (8.12 MEQ/2 ML-1 GM VIAL) IVPB ONE (07:22)
[2020-07-25] MEDS ORDERED: ATROPINE SO4 0.4 MG/1 ML VIAL IVPUSH ONE (08:30)
[2020-07-25] MEDS ORDERED: ATROPINE SULFATE 1 MG/10 ML DISP.SYRIN ONE (08:33)
[2020-07-25] MEDS: ENOXAPARIN NA (PORCINE) 40 MG/0.4 ML DISP.SYRIN SQ SCH (11:00)
[2020-07-25] MEDS: CALCIUM CARBONATE SUSPENSION - 1250 MG/5 ML ML GT SCH (11:26)
[2020-07-25] MEDS: MIDODRINE HCL 5 MG TABLET PO SCH ×3 (11:28→17:48)
[2020-07-25] MEDS: CHOLECALCIFEROL (VIT D SOLUTION) 400 UNIT/1 ML DROPS GT SCH (11:28)
[2020-07-25] MEDS: levETIRAcetam 500 MG/5 ML ORAL SOLUTION (UNIT-DOSE CUPS) PEG SCH ×2 (11:28→22:57)
[2020-07-25] MEDS: POLYETHYLENE GLYCOL 3350 119 GM BTL GT SCH ×2 (11:50→22:56)
[2020-07-25] MEDS: LACTULOSE 20 GM/30 ML UDC (FOR ORAL USE ONLY) GT SCH ×3 (15:00→22:59)
[2020-07-25] MEDS: BACLOFEN 10 MG TABLET (FP) GT SCH ×3 (15:00→22:58)
[2020-07-25] MEDS: NOREPINEPHRINE NS PREMIX 8,000 MCG/500 ML BAG IVPB SCH (17:47)
[2020-07-26] MEDS ORDERED: PIPERACILLIN/TAZOBACTAM 3.375 GM VIAL IVPB ONE ×3 (01:32→17:36)
[2020-07-26] MEDS ORDERED: DEXTROSE 5%-WATER - 50 ML IVPB ONE ×3 (01:32→17:36)
[2020-07-26] MEDS: PIPERACILLIN/TAZOB 3.375 GM 3.375 GM in DEXTROSE 5%-WATER - 50 ML IVPB SCH ×3 (02:22→17:45)
[2020-07-26] MEDS: BACLOFEN 10 MG TABLET (FP) GT SCH ×3 (06:43→22:16)
[2020-07-26] MEDS: LACTULOSE 20 GM/30 ML UDC (FOR ORAL USE ONLY) GT SCH ×3 (06:44→22:16)
[2020-07-26] MEDS ORDERED: NAPH,MB-DB/K PH,MBDB POWDER PACKET GT ONE (08:00)
[2020-07-26 08:32] LABS: BASO % 1.2 % (0-2.0); EOS % 10.9 % (0-4.5); HEMATOCRIT 31.1 % (35.4-49); HEMOGLOBIN 10.6 GM/dL (11.7-16.9); LYMPH % 33.4 % (8-40); MCH 32.2 pg (25.7-33.7); MCHC 34.2 g/dl (32.0-35.9); MEAN PLT VOLUME 8.1 fl (7.5-11.1); MONO % 15.1 % (3.8-10.2); NEUT % 39.4 % (42.8-82.8); PLATELET COUNT 196 K/MM3 (134-434); RDW 18.2 % (11.9-15.9)
[2020-07-26 08:48] LABS: POTASSIUM 3.3 mmol/L (3.5-5.1)
[2020-07-26 08:56] LABS: BLOOD UREA NITROGEN 4.7 mg/dL (7-18); MAGNESIUM 1.9 mg/dL (1.8-2.4)
[2020-07-26 08:59] LABS: CREATININE 0.6 mg/dL (0.55-1.3); PHOSPHOROUS 3.2 mg/dL (2.5-4.9)
[2020-07-26] MEDS ORDERED: PT OWN MED DRAWER 7, Y5N ONE ×3 (09:09→17:44)
[2020-07-26] MEDS: CALCIUM CARBONATE SUSPENSION - 1250 MG/5 ML ML GT SCH (09:31)
[2020-07-26] MEDS: POLYETHYLENE GLYCOL 3350 119 GM BTL GT SCH ×2 (09:32→22:16)
[2020-07-26] MEDS: levETIRAcetam 500 MG/5 ML ORAL SOLUTION (UNIT-DOSE CUPS) PEG SCH ×2 (09:32→22:15)
[2020-07-26] MEDS: ENOXAPARIN NA (PORCINE) 40 MG/0.4 ML DISP.SYRIN SQ SCH (09:32)
[2020-07-26] MEDS: CHOLECALCIFEROL (VIT D SOLUTION) 400 UNIT/1 ML DROPS GT SCH (09:33)
[2020-07-26] MEDS: MIDODRINE HCL 5 MG TABLET PO SCH ×3 (09:33→17:45)
[2020-07-26 16:44] VITALS: BMI 25.5
[2020-07-26] MEDS: SCOPOLAMINE HYDROBROMIDE 1 PATCH PATCH.TD72 TD SCH (17:45)
[2020-07-27] MEDS ORDERED: PIPERACILLIN/TAZOBACTAM 3.375 GM VIAL IVPB ONE ×3 (01:23→18:20)
[2020-07-27] MEDS ORDERED: DEXTROSE 5%-WATER - 50 ML IVPB ONE ×3 (01:24→18:20)
[2020-07-27] MEDS: PIPERACILLIN/TAZOB 3.375 GM 3.375 GM in DEXTROSE 5%-WATER - 50 ML IVPB SCH ×3 (02:33→18:01)
[2020-07-27] MEDS: LACTULOSE 20 GM/30 ML UDC (FOR ORAL USE ONLY) GT SCH ×3 (05:08→21:27)
[2020-07-27] MEDS: BACLOFEN 10 MG TABLET (FP) GT SCH ×3 (05:08→21:27)
[2020-07-27] MEDS ORDERED: PT OWN MED DRAWER 7, Y5N ONE (10:52)
[2020-07-27] MEDS: CHOLECALCIFEROL (VIT D SOLUTION) 400 UNIT/1 ML DROPS GT SCH (10:54)
[2020-07-27] MEDS: MIDODRINE HCL 5 MG TABLET PO SCH ×3 (10:55→18:01)
[2020-07-27] MEDS: levETIRAcetam 500 MG/5 ML ORAL SOLUTION (UNIT-DOSE CUPS) PEG SCH ×2 (10:55→21:26)
[2020-07-27] MEDS: CALCIUM CARBONATE SUSPENSION - 1250 MG/5 ML ML GT SCH (10:55)
[2020-07-27] MEDS: ENOXAPARIN NA (PORCINE) 40 MG/0.4 ML DISP.SYRIN SQ SCH (10:55)
[2020-07-27] MEDS: POLYETHYLENE GLYCOL 3350 119 GM BTL GT SCH ×2 (10:56→21:27)
[2020-07-27] MEDS: POTASSIUM CHLORIDE ORAL LIQUID 20 MEQ/15 ML PO SCH ×2 (15:02→21:26)
[2020-07-28] MEDS ORDERED: DEXTROSE 5%-WATER - 50 ML IVPB ONE ×3 (00:52→17:08)
[2020-07-28] MEDS ORDERED: PIPERACILLIN/TAZOBACTAM 3.375 GM VIAL IVPB ONE ×3 (00:52→17:08)
[2020-07-28] MEDS: PIPERACILLIN/TAZOB 3.375 GM 3.375 GM in DEXTROSE 5%-WATER - 50 ML IVPB SCH ×3 (01:22→17:12)
[2020-07-28] MEDS: BACLOFEN 10 MG TABLET (FP) GT SCH ×3 (05:05→22:54)
[2020-07-28] MEDS: LACTULOSE 20 GM/30 ML UDC (FOR ORAL USE ONLY) GT SCH (05:05)
[2020-07-28 09:57] LABS: POTASSIUM 4.3 mmol/L (3.5-5.1)
[2020-07-28 09:59] LABS: CALCIUM 8.8 mg/dL (8.5-10.1); MAGNESIUM 2.1 mg/dL (1.8-2.4)
[2020-07-28 10:03] LABS: CREATININE 0.6 mg/dL (0.55-1.3); PHOSPHOROUS 3.8 mg/dL (2.5-4.9)
[2020-07-28] MEDS: POTASSIUM CHLORIDE ORAL LIQUID 20 MEQ/15 ML PO SCH ×2 (11:05→22:54)
[2020-07-28] MEDS: BACITRACIN 15 GM TUBE TOPICAL OINTMENT TP SCH ×2 (11:05→22:54)
[2020-07-28] MEDS: MIDODRINE HCL 5 MG TABLET PO SCH ×3 (11:06→17:11)
[2020-07-28] MEDS: levETIRAcetam 500 MG/5 ML ORAL SOLUTION (UNIT-DOSE CUPS) PEG SCH ×2 (11:06→22:54)
[2020-07-28] MEDS: CHOLECALCIFEROL (VIT D SOLUTION) 400 UNIT/1 ML DROPS GT SCH (11:07)
[2020-07-28] MEDS: POLYETHYLENE GLYCOL 3350 119 GM BTL GT SCH ×2 (11:09→22:54)
[2020-07-28] MEDS: ENOXAPARIN NA (PORCINE) 40 MG/0.4 ML DISP.SYRIN SQ SCH (11:09)
[2020-07-28] MEDS: CALCIUM CARBONATE SUSPENSION - 1250 MG/5 ML ML GT SCH (11:09)
[2020-07-28] MEDS ORDERED: PT OWN MED DRAWER 7, Y5N ONE (17:10)
[2020-07-29] MEDS ORDERED: DEXTROSE 5%-WATER - 50 ML IVPB ONE ×2 (00:59→10:46)
[2020-07-29] MEDS ORDERED: PIPERACILLIN/TAZOBACTAM 3.375 GM VIAL IVPB ONE ×2 (00:59→10:46)
[2020-07-29] MEDS: PIPERACILLIN/TAZOB 3.375 GM 3.375 GM in DEXTROSE 5%-WATER - 50 ML IVPB SCH ×2 (01:32→10:56)
[2020-07-29] MEDS: BACLOFEN 10 MG TABLET (FP) GT SCH ×2 (06:35→14:30)
[2020-07-29 10:36] LABS: BASO % 0.5 % (0-2.0); EOS % 9.6 % (0-4.5); HEMATOCRIT 33.6 % (35.4-49); HEMOGLOBIN 11.5 GM/dL (11.7-16.9); LYMPH % 41.1 % (8-40); MCH 32.3 pg (25.7-33.7); MCHC 34.4 g/dl (32.0-35.9); MEAN CELL VOLUME 93.9 fl (80-96); MEAN PLT VOLUME 8.4 fl (7.5-11.1); MONO % 7.3 % (3.8-10.2); NEUT % 41.5 % (42.8-82.8); PLATELET COUNT 255 K/MM3 (134-434); RBC 3.57 M/mm3 (4.00-5.60); RDW 18.4 % (11.9-15.9); WHITE BLOOD COUNT 5.2 K/mm3 (4.0-10.0)
[2020-07-29] MEDS ORDERED: PT OWN MED DRAWER 7, Y5N ONE (10:47)
[2020-07-29 10:54] LABS: POTASSIUM 4.4 mmol/L (3.5-5.1)
[2020-07-29] MEDS: levETIRAcetam 500 MG/5 ML ORAL SOLUTION (UNIT-DOSE CUPS) PEG SCH (10:58)
[2020-07-29] MEDS: CHOLECALCIFEROL (VIT D SOLUTION) 400 UNIT/1 ML DROPS GT SCH (10:58)
[2020-07-29] MEDS: ENOXAPARIN NA (PORCINE) 40 MG/0.4 ML DISP.SYRIN SQ SCH (10:58)
[2020-07-29] MEDS: BACITRACIN 15 GM TUBE TOPICAL OINTMENT TP SCH (10:59)
[2020-07-29] MEDS: MIDODRINE HCL 5 MG TABLET PO SCH ×2 (10:59→14:30)
[2020-07-29] MEDS: CALCIUM CARBONATE SUSPENSION - 1250 MG/5 ML ML GT SCH (10:59)
[2020-07-29] MEDS: POLYETHYLENE GLYCOL 3350 119 GM BTL GT SCH (10:59)
[2020-07-29 11:02] LABS: MAGNESIUM 2.2 mg/dL (1.8-2.4)
[2020-07-29 11:05] LABS: CREATININE 0.6 mg/dL (0.55-1.3); PHOSPHOROUS 4.6 mg/dL (2.5-4.9)
[2020-07-29 11:06] LABS: BILIRUBIN,TOTAL 0.3 mg/dL (0.2-1); TOT PROT 6.8 g/dl (6.4-8.2)
[2020-07-29 11:11] LABS: ALBUMIN 2.8 g/dl (3.4-5.0)
[2020-07-29] MEDS: SCOPOLAMINE HYDROBROMIDE 1 PATCH PATCH.TD72 TD SCH (14:30)
[2020-07-29 18:05] VITALS: BP 105/69; PULSE 53; TEMP 97.9
== END 2020-07-29 18:56 | disposition home or self-care (01) | DRG 871 ==
LOC: JER 08:43 → JERBED 11:38 → JICU 23:46 → J5S 07-25 20:15
PROVIDERS: ADMIT Internal Medicine; ATTEND Internal Medicine
PROC: 06HM33Z Insertion of Infusion Device into Right Femoral Vein, Percutaneous Approach (ICD-10-PCS; principal; 2020-07-20)
DX: A41.9 Sepsis, unspecified organism (principal); J69.0 Pneumonitis due to inhalation of food and vomit; R65.21 Severe sepsis with septic shock; R53.2 Functional quadriplegia; G92 Toxic encephalopathy; F73 Profound intellectual disabilities; Z93.1 Gastrostomy status; Z93.0 Tracheostomy status; G40.909 Epilepsy, unspecified, not intractable, without status epilepticus; G80.9 Cerebral palsy, unspecified; E87.6 Hypokalemia; I95.9 Hypotension, unspecified
CPT/HCPCS: 36415; 70450-TC; 71045-TC-FY; 80048; 80053; 81003; 82550; 82803; 82962; 83605; 83735; 84100; 84439; 84443; 84481; 84484; 85025; 85027; 85610; 85730; 87040; 87070; 87086; 87186; 87205; 87804; 93005; 93010; 99285-25; C9803; J0475; U0003; U0005

== ENCOUNTER 2020-09-15 23:48 | Inpatient (IN) | payer OTHER ==
[2020-09-15 23:52] VITALS: BMI 18.7
[2020-09-16] MEDS ORDERED: SODIUM CHLORIDE 0.9% 500 ML INFUS.BAG IV ONE (01:49)
[2020-09-16 02:32] LABS: BASO % 0.4 % (0-2.0); EOS % 1.1 % (0-4.5); HEMATOCRIT 33.3 % (35.4-49); HEMOGLOBIN 11.9 GM/dL (11.7-16.9); LYMPH % 10.8 % (8-40); MCH 33.5 pg (25.7-33.7); MCHC 35.7 g/dl (32.0-35.9); MEAN CELL VOLUME 93.7 fl (80-96); MEAN PLT VOLUME 9.5 fl (7.5-11.1); MONO % 5.2 % (3.8-10.2); NEUT % 82.5 % (42.8-82.8); PLATELET COUNT 69 K/MM3 (134-434); RBC 3.56 M/mm3 (4.00-5.60); RDW 17.9 % (11.9-15.9); WHITE BLOOD COUNT 9.2 K/mm3 (4.0-10.0)
[2020-09-16 02:45] LABS: CALCIUM 8.9 mg/dL (8.5-10.1)
[2020-09-16 02:46] LABS: ALBUMIN 2.8 g/dl (3.4-5.0); BLOOD UREA NITROGEN 21.8 mg/dL (7-18)
[2020-09-16 02:49] LABS: CREATININE 0.4 mg/dL (0.55-1.3)
[2020-09-16 02:50] LABS: BILIRUBIN,TOTAL 0.4 mg/dL (0.2-1)
[2020-09-16 02:51] LABS: TOT PROT 7.3 g/dl (6.4-8.2)
[2020-09-16 03:02] LABS: URINE APPEARANCE CLOUDY; URINE BILIRUBIN NEGATIVE (NEGATIVE); URINE COLOR YELLOW; URINE GLUCOSE (UA) NEGATIVE (NEGATIVE); URINE KETONE NEGATIVE (NEGATIVE); URINE LEUK ESTERASE NEGATIVE (NEGATIVE); URINE NITRITE NEGATIVE (NEGATIVE); URINE PROTEIN NEGATIVE (NEGATIVE); URINE UROBILINOGEN 0.2 mg/dL (0.2-1.0)
[2020-09-16] MEDS ORDERED: MAG HYDROX/AL HYDROX/SIMETH 30 ML UNIT-DOSE CUP ONE (03:06)
[2020-09-16 04:03] LABS: CALCIUM 8.7 mg/dL (8.5-10.1)
[2020-09-16 04:04] LABS: BLOOD UREA NITROGEN 20.5 mg/dL (7-18)
[2020-09-16 04:07] LABS: CREATININE 0.4 mg/dL (0.55-1.3)
[2020-09-16 04:22] LABS: ANISOCYTOSIS 1+; MACROCYTOSIS 1+; PLATELET ESTIMATE DECREASED
[2020-09-16] MEDS ORDERED: PATIENT'S OWN MEDICATION (NON-FORMULARY) (Linaclotide [Linzess] 145 MCG Capsule) GT SCH (07:00)
[2020-09-16] MEDS ORDERED: ALBUTEROL SO4 2.5/IPRATROPIUM 0.5 INH SOL 3 ML VIAL.NEB. NEB ONE ×2 (08:18→22:11)
[2020-09-16] MEDS: ALBUTEROL SO4 2.5/IPRATROPIUM 0.5 INH SOL 3 ML VIAL.NEB. NEB SCH ×2 (08:50→20:30)
[2020-09-16] MEDS ORDERED: PT OWN MED DRAWER 7, Y5N ONE (09:51)
[2020-09-16] MEDS: SCOPOLAMINE HYDROBROMIDE 1 PATCH PATCH.TD72 TD SCH (10:05)
[2020-09-16] MEDS: MIDODRINE HCL 5 MG TABLET GT SCH ×2 (10:05→15:29)
[2020-09-16] MEDS: levETIRAcetam 500 MG/5 ML ORAL SOLUTION (UNIT-DOSE CUPS) PEG SCH ×2 (10:05→23:12)
[2020-09-16] MEDS ORDERED: BACLOFEN 10 MG TABLET (FP) ONE ×2 (15:31→22:18)
[2020-09-16] MEDS: BACLOFEN 10 MG TABLET (FP) GT SCH ×2 (15:35→23:13)
[2020-09-16] MEDS ORDERED: SODIUM CHLORIDE 500 ML IV STA (18:16)
[2020-09-16] MEDS: MIDODRINE HCL 2.5 MG TABLET GT SCH (18:21)
[2020-09-16] MEDS ORDERED: LACTATED RINGERS SOLUTION 1,000 ML/1,000 ML INFUS.BAG IV SCH ×2 (18:30)
[2020-09-16] MEDS: ZINC OXIDE 20% TOPICAL OINTMENT 454 GM JAR TP SCH (22:00)
[2020-09-17] MEDS ORDERED: LACTATED RINGERS SOLUTION 1000 ML INFUS.BAG IV ONE (03:32)
[2020-09-17] MEDS ORDERED: SODIUM CHLORIDE 1,000 ML IV SCH ×2 (03:45→04:00)
[2020-09-17 05:47] LABS: HEMATOCRIT 28.9 % (35.4-49); HEMOGLOBIN 10.1 GM/dL (11.7-16.9); MCH 33.4 pg (25.7-33.7); MCHC 34.7 g/dl (32.0-35.9); MEAN CELL VOLUME 96.1 fl (80-96); MEAN PLT VOLUME 10.6 fl (7.5-11.1); PLATELET COUNT 69 K/MM3 (134-434); RBC 3.01 M/mm3 (4.00-5.60); WHITE BLOOD COUNT 5.4 K/mm3 (4.0-10.0)
[2020-09-17 06:10] LABS: CALCIUM 8.5 mg/dL (8.5-10.1)
[2020-09-17 06:11] LABS: ALBUMIN 2.4 g/dl (3.4-5.0); BLOOD UREA NITROGEN 14.2 mg/dL (7-18); MAGNESIUM 1.8 mg/dL (1.8-2.4)
[2020-09-17 06:14] LABS: CREATININE 0.3 mg/dL (0.55-1.3); PHOSPHOROUS 2.6 mg/dL (2.5-4.9)
[2020-09-17 06:16] LABS: BILIRUBIN,TOTAL 0.3 mg/dL (0.2-1)
[2020-09-17] MEDS: ZINC OXIDE 20% TOPICAL OINTMENT 454 GM JAR TP SCH ×4 (09:35→21:26)
[2020-09-17] MEDS ORDERED: ALBUTEROL SO4 2.5/IPRATROPIUM 0.5 INH SOL 3 ML VIAL.NEB. NEB ONE (09:36)
[2020-09-17] MEDS ORDERED: BACLOFEN 10 MG TABLET (FP) ONE (09:37)
[2020-09-17] MEDS: BACLOFEN 10 MG TABLET (FP) GT SCH ×3 (09:44→21:26)
[2020-09-17] MEDS: ALBUTEROL SO4 2.5/IPRATROPIUM 0.5 INH SOL 3 ML VIAL.NEB. NEB SCH ×2 (09:44→21:03)
[2020-09-17] MEDS: levETIRAcetam 500 MG/5 ML ORAL SOLUTION (UNIT-DOSE CUPS) PEG SCH ×2 (10:35→21:26)
[2020-09-17] MEDS: MIDODRINE HCL 2.5 MG TABLET GT SCH ×3 (10:35→19:00)
[2020-09-17] MEDS ORDERED: PT OWN MED DRAWER 7, Y5N ONE (21:20)
[2020-09-18] MEDS ORDERED: PT OWN MED DRAWER 7, Y5N ONE ×3 (04:32→20:13)
[2020-09-18] MEDS: BACLOFEN 10 MG TABLET (FP) GT SCH ×3 (06:42→21:25)
[2020-09-18] MEDS: ZINC OXIDE 20% TOPICAL OINTMENT 454 GM JAR TP SCH ×3 (06:42→21:25)
[2020-09-18 07:41] LABS: HEMATOCRIT 27.3 % (35.4-49); HEMOGLOBIN 9.3 GM/dL (11.7-16.9); MCH 32.7 pg (25.7-33.7); MEAN CELL VOLUME 96.2 fl (80-96); MEAN PLT VOLUME 10.4 fl (7.5-11.1); PLATELET COUNT 73 K/MM3 (134-434); RBC 2.84 M/mm3 (4.00-5.60); RDW 18.3 % (11.9-15.9); WHITE BLOOD COUNT 3.7 K/mm3 (4.0-10.0)
[2020-09-18] MEDS: ALBUTEROL SO4 2.5/IPRATROPIUM 0.5 INH SOL 3 ML VIAL.NEB. NEB SCH ×2 (08:05→20:44)
[2020-09-18 08:12] LABS: CALCIUM 8.5 mg/dL (8.5-10.1)
[2020-09-18 08:13] LABS: BLOOD UREA NITROGEN 17.3 mg/dL (7-18)
[2020-09-18 08:16] LABS: CREATININE 0.4 mg/dL (0.55-1.3)
[2020-09-18] MEDS: ENOXAPARIN NA (PORCINE) 40 MG/0.4 ML DISP.SYRIN SQ SCH (09:56)
[2020-09-18] MEDS: levETIRAcetam 500 MG/5 ML ORAL SOLUTION (UNIT-DOSE CUPS) PEG SCH ×2 (09:56→21:25)
[2020-09-18] MEDS: MIDODRINE HCL 2.5 MG TABLET GT SCH ×3 (09:56→18:35)
[2020-09-19] MEDS: BACLOFEN 10 MG TABLET (FP) GT SCH ×3 (05:51→21:11)
[2020-09-19] MEDS: ZINC OXIDE 20% TOPICAL OINTMENT 454 GM JAR TP SCH ×3 (05:51→21:11)
[2020-09-19] MEDS: ALBUTEROL SO4 2.5/IPRATROPIUM 0.5 INH SOL 3 ML VIAL.NEB. NEB SCH ×2 (08:07→20:51)
[2020-09-19] MEDS ORDERED: PT OWN MED DRAWER 7, Y5N ONE ×3 (10:00→20:34)
[2020-09-19] MEDS: levETIRAcetam 500 MG/5 ML ORAL SOLUTION (UNIT-DOSE CUPS) PEG SCH ×2 (10:01→21:11)
[2020-09-19] MEDS: ENOXAPARIN NA (PORCINE) 40 MG/0.4 ML DISP.SYRIN SQ SCH (10:01)
[2020-09-19] MEDS: SCOPOLAMINE HYDROBROMIDE 1 PATCH PATCH.TD72 TD SCH (10:02)
[2020-09-19] MEDS: MIDODRINE HCL 2.5 MG TABLET GT SCH ×3 (10:02→17:51)
[2020-09-20] MEDS: BACLOFEN 10 MG TABLET (FP) GT SCH ×2 (05:26→13:35)
[2020-09-20] MEDS: ZINC OXIDE 20% TOPICAL OINTMENT 454 GM JAR TP SCH ×2 (05:32→13:36)
[2020-09-20] MEDS: ALBUTEROL SO4 2.5/IPRATROPIUM 0.5 INH SOL 3 ML VIAL.NEB. NEB SCH (08:11)
[2020-09-20] MEDS: levETIRAcetam 500 MG/5 ML ORAL SOLUTION (UNIT-DOSE CUPS) PEG SCH (09:23)
[2020-09-20] MEDS: MIDODRINE HCL 2.5 MG TABLET GT SCH ×2 (09:23→13:35)
[2020-09-20] MEDS: ENOXAPARIN NA (PORCINE) 40 MG/0.4 ML DISP.SYRIN SQ SCH (09:24)
[2020-09-20 15:25] VITALS: BP 107/56; PULSE 61; TEMP 97.7
== END 2020-09-20 15:24 | DRG 91 ==
LOC: JER 23:48 → JERBED 09-16 03:19 → J4W 09-17 14:18
PROVIDERS: ADMIT Internal Medicine; ATTEND Internal Medicine
PROC: 0B21XFZ Change Tracheostomy Device in Trachea, External Approach (ICD-10-PCS; principal; 2020-09-20)
DX: G92 Toxic encephalopathy (principal); R53.2 Functional quadriplegia; F73 Profound intellectual disabilities; J96.11 Chronic respiratory failure with hypoxia; J95.03 Malfunction of tracheostomy stoma; R00.1 Bradycardia, unspecified; I95.2 Hypotension due to drugs; T44.4X5A Adverse effect of predominantly alpha-adrenoreceptor agonists, initial encounter; G40.909 Epilepsy, unspecified, not intractable, without status epilepticus; Q02 Microcephaly; G80.9 Cerebral palsy, unspecified; D69.6 Thrombocytopenia, unspecified; R74.01 Elevation of levels of liver transaminase levels; N28.1 Cyst of kidney, acquired; R94.5 Abnormal results of liver function studies; K59.09 Other constipation; Z93.1 Gastrostomy status
CPT/HCPCS: 36415; 70450-TC; 71045-TC-FY; 76705-TC; 80048; 80053; 80074; 81003; 82962; 83605; 83735; 83930; 84100; 84443; 85025; 85027; 87040; 87086; 93005; 93010; 94640; 99285-25; C9803; J0475; U0003; U0005

== ENCOUNTER 2021-01-19 09:20 | Inpatient (IN) | payer OTHER ==
[2021-01-19] MEDS ORDERED: ACETAMINOPHEN 1000 MG/100 ML VIAL (NON FORMULARY) IVPB ONE (09:53)
[2021-01-19] MEDS ORDERED: PIPERACILLIN/TAZOB 4.5 GM 4.5 GM in DEXTROSE 5%-WATER 100 ML IVPB ONE (09:54)
[2021-01-19] MEDS ORDERED: VANCOMYCIN 1 GM in D5W (PRE-DOCKED) 1,000 MG/250 ML IVPB ONE (09:54)
[2021-01-19] MEDS: SODIUM CHLORIDE 0.9% 1000 ML INFUS.BAG IV SCH (10:00)
[2021-01-19] MEDS ORDERED: ACETAMINOPHEN INJECTION 100 ML IVPB ONE (10:55)
[2021-01-19] MEDS ORDERED: PIPERACILLIN/TAZOB 4.5 GM 4.5 GM/100 ML BAG IVPB ONE (10:56)
[2021-01-19] MEDS ORDERED: VANCOMYCIN 1 GRAM (PRE-DOCKED) 1,000 MG/250 ML BAG IVPB ONE ×2 (10:58→22:59)
[2021-01-19 11:06] LABS: HEMATOCRIT 27.4 % (35.4-49); HEMOGLOBIN 9.2 GM/dL (11.7-16.9); MCH 32.3 pg (25.7-33.7); MCHC 33.7 g/dl (32.0-35.9); MEAN CELL VOLUME 95.8 fl (80-96); MEAN PLT VOLUME 9.2 fl (7.5-11.1); PLATELET COUNT 145 10^3/uL (134-434); RBC 2.86 M/mm3 (4.00-5.60); RDW 18.2 % (11.9-15.9)
[2021-01-19 11:27] LABS: INR 0.95 (0.83-1.09); PROTHROMBIN TIME (PATIENT) 11.7 SEC (9.7-13.0)
[2021-01-19 11:30] LABS: ACTIVATED PTT 42.7 SECONDS (25.2-36.5)
[2021-01-19 11:31] LABS: CHLORIDE 95 mmol/L (98-107); SODIUM 133 mmol/L (136-145)
[2021-01-19 11:33] LABS: CALCIUM 9.4 mg/dL (8.5-10.1)
[2021-01-19 11:34] LABS: ALBUMIN 2.9 g/dl (3.4-5.0); ANION GAP 7 MMOL/L (8-16); BLOOD UREA NITROGEN 38.4 mg/dL (7-18); CO2 31 mmol/L (21-32); GLUCOSE,RANDOM 119 mg/dL (74-106)
[2021-01-19 11:37] LABS: CREATININE 0.8 mg/dL (0.55-1.3); SGOT/AST 78 U/L (15-37); SGPT/ALT 70 U/L (13-61)
[2021-01-19 11:38] LABS: BILIRUBIN,TOTAL 0.3 mg/dL (0.2-1)
[2021-01-19 11:39] LABS: TOT PROT 7.9 g/dl (6.4-8.2)
[2021-01-19 11:40] LABS: ALK PHOS 337 U/L (45-117)
[2021-01-19 12:03] LABS: VENOUS BASE EXCESS 10.8 mmol/L (-2-2); VENOUS O2 SATURATION 88.6 % (70-80); VENOUS PCO2 47.9 mmHg (38-52); VENOUS PH 7.482 (7.310-7.410)
[2021-01-19 12:08] LABS: ANISOCYTOSIS 0; HELMET CELLS 0; HOWELL-JOLLY BODIES 0; MACROCYTOSIS 0; OVALOCYTE 0; PLATELET ESTIMATE DECREASED; ROULEAU 0; SICKELED CELLS 0; TARGET CELLS 0; TEAR DROP CELLS 0; TOXIC GRANULATION 0
[2021-01-19 13:41] LABS: EPI CELLS 1 /uL (0-25.1); HYALINE CASTS 2 /uL (0-3.1); PH,URINE 8.5 (5.0-8.0); URINE APPEARANCE CLOUDY; URINE BACTERIA 841 /uL (0-1359); URINE BILIRUBIN NEGATIVE (NEGATIVE); URINE COLOR YELLOW; URINE GLUCOSE (UA) NEGATIVE (NEGATIVE); URINE KETONE NEGATIVE (NEGATIVE); URINE LEUK ESTERASE 3+ (NEGATIVE); URINE NITRITE NEGATIVE (NEGATIVE); URINE PROTEIN NEGATIVE (NEGATIVE); URINE RBC 3 /uL (0-23.9); URINE UROBILINOGEN 0.2 mg/dL (0.2-1.0); URINE WBC 313 /uL (0-25.8)
[2021-01-19] MEDS ORDERED: ACETAMINOPHEN 650 MG/20.3 ML ORAL SOLUTION (CUPS) GT PRN (16:34)
[2021-01-19] MEDS ORDERED: PIPERACILLIN/TAZOB 3.375 GM 3.375 GM/50 ML BAG IVPB ONE (18:02)
[2021-01-19] MEDS: PIPERACILLIN/TAZOB 3.375 GM 3.375 GM in DEXTROSE 5%-WATER - 50 ML IVPB SCH (18:10)
[2021-01-19] MEDS ORDERED: VANCOMYCIN 1 GM in D5W (PRE-DOCKED) 1,000 MG/250 ML IVPB SCH (22:00)
[2021-01-19] MEDS ORDERED: BACLOFEN 10 MG TABLET (FP) ONE (22:14)
[2021-01-19] MEDS ORDERED: ALBUTEROL SO4 2.5/IPRATROPIUM 0.5 INH SOL 3 ML VIAL.NEB. NEB ONE (22:14)
[2021-01-19] MEDS: levETIRAcetam 500 MG/5 ML ORAL SOLUTION (UNIT-DOSE CUPS) PEG SCH (22:38)
[2021-01-19] MEDS: BACLOFEN 10 MG TABLET (FP) GT SCH ×2 (22:38→22:39)
[2021-01-19] MEDS: ALBUTEROL SO4 2.5/IPRATROPIUM 0.5 INH SOL 3 ML VIAL.NEB. NEB SCH (22:38)
[2021-01-19] MEDS: POLYETHYLENE GLYCOL (HEALTHYLAX) 3350 17 GM PACKET GT SCH (23:15)
[2021-01-19] MEDS: VANCOMYCIN 1 GM in D5W (PRE-DOCKED) 1,000 MG/250 ML IVPB SCH (23:15)
[2021-01-20] MEDS ORDERED: SODIUM CHLORIDE 250 ML IV STA (01:55)
[2021-01-20] MEDS ORDERED: PIPERACILLIN/TAZOB 3.375 GM 3.375 GM/50 ML BAG IVPB ONE ×3 (02:01→19:27)
[2021-01-20] MEDS: PIPERACILLIN/TAZOB 3.375 GM 3.375 GM in DEXTROSE 5%-WATER - 50 ML IVPB SCH ×4 (02:02→23:14)
[2021-01-20] MEDS ORDERED: BACLOFEN 10 MG TABLET (FP) ONE ×2 (05:14→15:30)
[2021-01-20] MEDS: BACLOFEN 10 MG TABLET (FP) GT SCH ×3 (05:35→23:14)
[2021-01-20 06:52] LABS: BASO % 0.5 % (0-2.0); EOS % 1.7 % (0-4.5); HEMATOCRIT 22.3 % (35.4-49); HEMOGLOBIN 7.5 GM/dL (11.7-16.9); MCH 32.6 pg (25.7-33.7); MCHC 33.9 g/dl (32.0-35.9); MEAN CELL VOLUME 96.2 fl (80-96); MEAN PLT VOLUME 8.5 fl (7.5-11.1); MONO % 7.4 % (3.8-10.2); NEUT % 75.4 % (42.8-82.8); PLATELET COUNT 128 10^3/uL (134-434); RBC 2.31 M/mm3 (4.00-5.60); WHITE BLOOD COUNT 5.9 K/mm3 (4.0-10.0)
[2021-01-20 07:24] LABS: ALBUMIN 2.4 g/dl (3.4-5.0); BLOOD UREA NITROGEN 20.5 mg/dL (7-18); CALCIUM 8.6 mg/dL (8.5-10.1)
[2021-01-20 07:28] LABS: CREATININE 0.6 mg/dL (0.55-1.3)
[2021-01-20 07:29] LABS: BILIRUBIN,TOTAL 0.6 mg/dL (0.2-1); TOT PROT 6.8 g/dl (6.4-8.2)
[2021-01-20] MEDS ORDERED: DEXTROSE 50%-WATER - 25 GM/50 ML VIAL IVPUSH ONE (08:15)
[2021-01-20] MEDS ORDERED: ALBUTEROL SO4 2.5/IPRATROPIUM 0.5 INH SOL 3 ML VIAL.NEB. NEB ONE (08:16)
[2021-01-20] MEDS: ALBUTEROL SO4 2.5/IPRATROPIUM 0.5 INH SOL 3 ML VIAL.NEB. NEB SCH ×2 (08:41→21:53)
[2021-01-20] MEDS ORDERED: DEXTROSE 50%-WATER 25 GM/50 ML DISP.SYRIN ONE (08:42)
[2021-01-20] MEDS: SODIUM CHLORIDE 0.9% 1000 ML INFUS.BAG IV SCH (11:02)
[2021-01-20] MEDS ORDERED: POLYETHYLENE GLYCOL (HEALTHYLAX) 3350 17 GM PACKET ONE (11:04)
[2021-01-20] MEDS ORDERED: VANCOMYCIN 1 GRAM (PRE-DOCKED) 1,000 MG/250 ML BAG IVPB ONE (11:05)
[2021-01-20] MEDS: MIDODRINE HCL 5 MG TABLET GT SCH ×3 (11:31→18:51)
[2021-01-20] MEDS: POLYETHYLENE GLYCOL (HEALTHYLAX) 3350 17 GM PACKET GT SCH ×2 (11:31→23:14)
[2021-01-20] MEDS: levETIRAcetam 500 MG/5 ML ORAL SOLUTION (UNIT-DOSE CUPS) PEG SCH ×2 (11:31→23:13)
[2021-01-20] MEDS: VANCOMYCIN 1 GM in D5W (PRE-DOCKED) 1,000 MG/250 ML IVPB SCH (11:32)
[2021-01-20 12:33] LABS: HEMATOCRIT 22.9 % (35.4-49); HEMOGLOBIN 7.8 GM/dL (11.7-16.9); MCH 32.7 pg (25.7-33.7); MEAN CELL VOLUME 96.1 fl (80-96); MEAN PLT VOLUME 8.5 fl (7.5-11.1); PLATELET COUNT 144 10^3/uL (134-434); RBC 2.38 M/mm3 (4.00-5.60); RDW 17.9 % (11.9-15.9); WHITE BLOOD COUNT 4.9 K/mm3 (4.0-10.0)
[2021-01-20] MEDS ORDERED: PANTOPRAZOLE SODIUM 40 MG/100 ML BAG IVPB ONE (12:57)
[2021-01-20] MEDS: PANTOPRAZOLE SODIUM 40 MG VIAL IVPUSH SCH ×2 (13:16→23:14)
[2021-01-20] MEDS ORDERED: PT OWN MED DRAWER 7, Y5N ONE ×2 (15:30→16:02)
[2021-01-20] MEDS ORDERED: IRON SUCROSE INJECTION 200 MG in SODIUM CHLORIDE 90 ML IVPB ONE (16:00)
[2021-01-20 21:39] LABS: HEMATOCRIT 23.2 % (35.4-49); HEMOGLOBIN 7.9 GM/dL (11.7-16.9); MCH 32.6 pg (25.7-33.7); MEAN CELL VOLUME 95.8 fl (80-96); MEAN PLT VOLUME 8.2 fl (7.5-11.1); PLATELET COUNT 159 10^3/uL (134-434); RBC 2.43 M/mm3 (4.00-5.60); RDW 18.3 % (11.9-15.9); WHITE BLOOD COUNT 4.5 K/mm3 (4.0-10.0)
[2021-01-20] MEDS ORDERED: PIPERACILLIN/TAZOBACTAM 3.375 GM VIAL IVPB ONE (22:47)
[2021-01-20] MEDS ORDERED: DEXTROSE 5%-WATER - 50 ML IVPB ONE (22:47)
[2021-01-21] MEDS ORDERED: SODIUM CHLORIDE 250 ML IV STA (01:57)
[2021-01-21] MEDS: PIPERACILLIN/TAZOB 3.375 GM 3.375 GM in DEXTROSE 5%-WATER - 50 ML IVPB SCH ×3 (03:04→17:00)
[2021-01-21] MEDS ORDERED: PIPERACILLIN/TAZOBACTAM 3.375 GM VIAL IVPB ONE ×3 (03:04→16:47)
[2021-01-21] MEDS ORDERED: DEXTROSE 5%-WATER - 50 ML IVPB ONE ×3 (03:05→16:47)
[2021-01-21] MEDS: BACLOFEN 10 MG TABLET (FP) GT SCH ×3 (05:03→22:12)
[2021-01-21 06:04] LABS: HEMATOCRIT 23.8 % (35.4-49); HEMOGLOBIN 7.9 GM/dL (11.7-16.9); MCH 32.3 pg (25.7-33.7); MCHC 33.2 g/dl (32.0-35.9); MEAN CELL VOLUME 97.3 fl (80-96); MEAN PLT VOLUME 8.5 fl (7.5-11.1); PLATELET COUNT 158 10^3/uL (134-434); RBC 2.44 M/mm3 (4.00-5.60); RDW 18.3 % (11.9-15.9); WHITE BLOOD COUNT 3.8 K/mm3 (4.0-10.0)
[2021-01-21 06:39] LABS: CALCIUM 8.5 mg/dL (8.5-10.1)
[2021-01-21 06:40] LABS: ALBUMIN 2.4 g/dl (3.4-5.0); MAGNESIUM 2.1 mg/dL (1.8-2.4)
[2021-01-21 06:43] LABS: CREATININE 0.6 mg/dL (0.55-1.3); PHOSPHOROUS 3.7 mg/dL (2.5-4.9)
[2021-01-21 06:44] LABS: BILIRUBIN,TOTAL 0.5 mg/dL (0.2-1)
[2021-01-21 06:47] LABS: BLOOD UREA NITROGEN 13.3 mg/dL (7-18)
[2021-01-21] MEDS: ALBUTEROL SO4 2.5/IPRATROPIUM 0.5 INH SOL 3 ML VIAL.NEB. NEB SCH ×2 (07:40→20:10)
[2021-01-21] MEDS: POLYETHYLENE GLYCOL (HEALTHYLAX) 3350 17 GM PACKET GT SCH ×2 (09:22→22:12)
[2021-01-21] MEDS ORDERED: PT OWN MED DRAWER 7, Y5N ONE ×4 (10:30→21:58)
[2021-01-21] MEDS: levETIRAcetam 500 MG/5 ML ORAL SOLUTION (UNIT-DOSE CUPS) PEG SCH ×2 (10:36→22:12)
[2021-01-21] MEDS: SODIUM CHLORIDE 0.9% 1000 ML INFUS.BAG IV SCH (10:36)
[2021-01-21] MEDS: SCOPOLAMINE HYDROBROMIDE 1 PATCH PATCH.TD72 TD SCH (10:37)
[2021-01-21] MEDS: MIDODRINE HCL 5 MG TABLET GT SCH ×3 (10:37→18:21)
[2021-01-21] MEDS: PANTOPRAZOLE SODIUM 40 MG VIAL IVPUSH SCH (10:37)
[2021-01-21 15:17] VITALS: BMI 26.5
[2021-01-21] MEDS: NYSTATIN 100,000 UNIT/GM TOPICAL CREAM 15 GM TUBE TP SCH ×2 (16:40→22:12)
[2021-01-21] MEDS: VITAMINS A AND D TOPICAL OINTMENT 60 GM TUBE TP SCH (18:22)
[2021-01-22] MEDS ORDERED: PIPERACILLIN/TAZOBACTAM 3.375 GM VIAL IVPB ONE ×3 (01:14→18:23)
[2021-01-22] MEDS ORDERED: DEXTROSE 5%-WATER - 50 ML IVPB ONE ×3 (01:14→18:23)
[2021-01-22] MEDS: VITAMINS A AND D TOPICAL OINTMENT 60 GM TUBE TP SCH ×4 (01:26→18:46)
[2021-01-22] MEDS: PIPERACILLIN/TAZOB 3.375 GM 3.375 GM in DEXTROSE 5%-WATER - 50 ML IVPB SCH ×3 (01:26→18:46)
[2021-01-22] MEDS: BACLOFEN 10 MG TABLET (FP) GT SCH ×3 (06:04→22:28)
[2021-01-22 06:34] LABS: HEMATOCRIT 23.2 % (35.4-49); HEMOGLOBIN 7.8 GM/dL (11.7-16.9); MCH 32.8 pg (25.7-33.7); MCHC 33.8 g/dl (32.0-35.9); MEAN PLT VOLUME 8.5 fl (7.5-11.1); PLATELET COUNT 188 10^3/uL (134-434); RBC 2.39 M/mm3 (4.00-5.60); RDW 18.1 % (11.9-15.9); WHITE BLOOD COUNT 4.6 K/mm3 (4.0-10.0)
[2021-01-22 07:00] LABS: ALBUMIN 2.4 g/dl (3.4-5.0)
[2021-01-22 07:01] LABS: BLOOD UREA NITROGEN 8.8 mg/dL (7-18); CALCIUM 8.6 mg/dL (8.5-10.1)
[2021-01-22 07:03] LABS: CREATININE 0.5 mg/dL (0.55-1.3); PHOSPHOROUS 2.9 mg/dL (2.5-4.9)
[2021-01-22 07:04] LABS: BILIRUBIN,TOTAL 0.6 mg/dL (0.2-1); TOT PROT 6.8 g/dl (6.4-8.2)
[2021-01-22] MEDS ORDERED: POTASSIUM CHLORIDE ORAL LIQUID 20 MEQ/15 ML GT ONE (07:57)
[2021-01-22] MEDS ORDERED: KCL 10 MEQ IVPB 10 MEQ/100 ML INFUS.BAG IVPB SCH (08:00)
[2021-01-22] MEDS: ALBUTEROL SO4 2.5/IPRATROPIUM 0.5 INH SOL 3 ML VIAL.NEB. NEB SCH ×2 (08:09→20:51)
[2021-01-22] MEDS ORDERED: PT OWN MED DRAWER 7, Y5N ONE ×2 (09:29→23:54)
[2021-01-22] MEDS: ENOXAPARIN NA (PORCINE) 40 MG/0.4 ML DISP.SYRIN SQ SCH (10:55)
[2021-01-22] MEDS: POLYETHYLENE GLYCOL (HEALTHYLAX) 3350 17 GM PACKET GT SCH ×2 (10:55→22:28)
[2021-01-22] MEDS: levETIRAcetam 500 MG/5 ML ORAL SOLUTION (UNIT-DOSE CUPS) PEG SCH (10:55)
[2021-01-22] MEDS: NYSTATIN 100,000 UNIT/GM TOPICAL CREAM 15 GM TUBE TP SCH (10:55)
[2021-01-22] MEDS: PANTOPRAZOLE SODIUM 40 MG VIAL IVPUSH SCH (10:56)
[2021-01-22] MEDS: MIDODRINE HCL 5 MG TABLET GT SCH ×3 (10:56→18:46)
[2021-01-23] MEDS: levETIRAcetam 500 MG/5 ML ORAL SOLUTION (UNIT-DOSE CUPS) PEG SCH ×3 (00:03→21:44)
[2021-01-23] MEDS: NYSTATIN 100,000 UNIT/GM TOPICAL CREAM 15 GM TUBE TP SCH ×3 (00:03→21:44)
[2021-01-23] MEDS: VITAMINS A AND D TOPICAL OINTMENT 60 GM TUBE TP SCH ×4 (00:14→17:58)
[2021-01-23] MEDS ORDERED: PIPERACILLIN/TAZOBACTAM 3.375 GM VIAL IVPB ONE ×2 (01:21→09:49)
[2021-01-23] MEDS ORDERED: DEXTROSE 5%-WATER - 50 ML IVPB ONE ×2 (01:21→09:49)
[2021-01-23] MEDS: PIPERACILLIN/TAZOB 3.375 GM 3.375 GM in DEXTROSE 5%-WATER - 50 ML IVPB SCH ×2 (01:25→09:54)
[2021-01-23] MEDS ORDERED: PT OWN MED DRAWER 7, Y5N ONE ×4 (05:58→21:42)
[2021-01-23] MEDS: BACLOFEN 10 MG TABLET (FP) GT SCH ×3 (06:00→21:44)
[2021-01-23] MEDS ORDERED: POTASSIUM CHLORIDE ORAL LIQUID 20 MEQ/15 ML GT ONE (08:08)
[2021-01-23] MEDS ORDERED: KCL 10 MEQ IVPB 10 MEQ/100 ML INFUS.BAG IVPB SCH (08:15)
[2021-01-23] MEDS: ALBUTEROL SO4 2.5/IPRATROPIUM 0.5 INH SOL 3 ML VIAL.NEB. NEB SCH ×2 (08:27→20:57)
[2021-01-23] MEDS: MIDODRINE HCL 5 MG TABLET GT SCH ×3 (09:53→17:58)
[2021-01-23] MEDS: ENOXAPARIN NA (PORCINE) 40 MG/0.4 ML DISP.SYRIN SQ SCH (09:53)
[2021-01-23] MEDS: PANTOPRAZOLE SODIUM 40 MG VIAL IVPUSH SCH (09:54)
[2021-01-23] MEDS: POLYETHYLENE GLYCOL (HEALTHYLAX) 3350 17 GM PACKET GT SCH ×2 (09:55→21:39)
[2021-01-23] MEDS ORDERED: DEXTROSE 50%-WATER - 25 GM/50 ML VIAL IVPUSH ONE (13:57)
[2021-01-23] MEDS ORDERED: DEXTROSE 50%-WATER 25 GM/50 ML DISP.SYRIN ONE (14:11)
[2021-01-23] MEDS ORDERED: DEXTROSE 50%-WATER 25 GM/50 ML DISP.SYRIN IVPUSH ONE (14:15)
[2021-01-23] MEDS ORDERED: TIGECYCLINE 100 MG in DEXTROSE 5%-WATER - 100 ML IVPB ONE (15:15)
[2021-01-24] MEDS: VITAMINS A AND D TOPICAL OINTMENT 60 GM TUBE TP SCH ×4 (00:08→17:21)
[2021-01-24] MEDS: BACLOFEN 10 MG TABLET (FP) GT SCH ×3 (06:24→21:44)
[2021-01-24 07:00] LABS: HEMATOCRIT 25.7 % (35.4-49); HEMOGLOBIN 8.7 GM/dL (11.7-16.9); MCH 32.7 pg (25.7-33.7); MCHC 33.8 g/dl (32.0-35.9); MEAN CELL VOLUME 96.7 fl (80-96); MEAN PLT VOLUME 8.4 fl (7.5-11.1); PLATELET COUNT 346 10^3/uL (134-434); RBC 2.65 M/mm3 (4.00-5.60); RDW 17.9 % (11.9-15.9); WHITE BLOOD COUNT 6.4 K/mm3 (4.0-10.0)
[2021-01-24 07:25] LABS: ALBUMIN 2.7 g/dl (3.4-5.0); BLOOD UREA NITROGEN 20.1 mg/dL (7-18); CALCIUM 8.7 mg/dL (8.5-10.1)
[2021-01-24 07:26] LABS: MAGNESIUM 1.9 mg/dL (1.8-2.4)
[2021-01-24 07:28] LABS: CREATININE 0.5 mg/dL (0.55-1.3); PHOSPHOROUS 3.2 mg/dL (2.5-4.9)
[2021-01-24 07:29] LABS: TOT PROT 7.5 g/dl (6.4-8.2)
[2021-01-24 07:32] LABS: BILIRUBIN,TOTAL 0.3 mg/dL (0.2-1)
[2021-01-24] MEDS: ALBUTEROL SO4 2.5/IPRATROPIUM 0.5 INH SOL 3 ML VIAL.NEB. NEB SCH (07:50)
[2021-01-24] MEDS: SCOPOLAMINE HYDROBROMIDE 1 PATCH PATCH.TD72 TD SCH (09:21)
[2021-01-24] MEDS: MIDODRINE HCL 5 MG TABLET GT SCH ×3 (09:21→17:20)
[2021-01-24] MEDS: PANTOPRAZOLE SODIUM 40 MG VIAL IVPUSH SCH (09:21)
[2021-01-24] MEDS: POLYETHYLENE GLYCOL (HEALTHYLAX) 3350 17 GM PACKET GT SCH ×2 (09:21→21:44)
[2021-01-24] MEDS: ENOXAPARIN NA (PORCINE) 40 MG/0.4 ML DISP.SYRIN SQ SCH (09:21)
[2021-01-24] MEDS: levETIRAcetam 500 MG/5 ML ORAL SOLUTION (UNIT-DOSE CUPS) PEG SCH ×2 (09:23→21:44)
[2021-01-24] MEDS: NYSTATIN 100,000 UNIT/GM TOPICAL CREAM 15 GM TUBE TP SCH ×2 (09:24→21:45)
[2021-01-24] MEDS ORDERED: PT OWN MED DRAWER 7, Y5N ONE ×3 (14:59→21:42)
[2021-01-24] MEDS: CEFTAZIDIME/AVIBACTAM 2.5 GM in DEXTROSE 5%-WATER - 250 ML IVPB SCH ×2 (15:00→17:20)
[2021-01-25] MEDS: VITAMINS A AND D TOPICAL OINTMENT 60 GM TUBE TP SCH ×4 (01:00→17:35)
[2021-01-25] MEDS ORDERED: PT OWN MED DRAWER 7, Y5N ONE ×3 (01:13→21:23)
[2021-01-25] MEDS: CEFTAZIDIME/AVIBACTAM 2.5 GM in DEXTROSE 5%-WATER - 250 ML IVPB SCH ×3 (01:16→17:34)
[2021-01-25] MEDS: BACLOFEN 10 MG TABLET (FP) GT SCH ×3 (06:03→21:41)
[2021-01-25 07:27] LABS: HEMATOCRIT 24.9 % (35.4-49); HEMOGLOBIN 8.4 GM/dL (11.7-16.9); MCH 32.4 pg (25.7-33.7); MCHC 33.9 g/dl (32.0-35.9); MEAN CELL VOLUME 95.5 fl (80-96); MEAN PLT VOLUME 7.8 fl (7.5-11.1); PLATELET COUNT 329 10^3/uL (134-434); WHITE BLOOD COUNT 5.6 K/mm3 (4.0-10.0)
[2021-01-25 07:50] LABS: ALBUMIN 2.5 g/dl (3.4-5.0); CALCIUM 8.1 mg/dL (8.5-10.1)
[2021-01-25 07:51] LABS: BLOOD UREA NITROGEN 22.5 mg/dL (7-18); MAGNESIUM 1.8 mg/dL (1.8-2.4)
[2021-01-25 07:54] LABS: CREATININE 0.5 mg/dL (0.55-1.3); PHOSPHOROUS 3.6 mg/dL (2.5-4.9)
[2021-01-25 07:55] LABS: BILIRUBIN,TOTAL 0.3 mg/dL (0.2-1); TOT PROT 7.3 g/dl (6.4-8.2)
[2021-01-25] MEDS: MIDODRINE HCL 5 MG TABLET GT SCH ×4 (09:34→17:36)
[2021-01-25] MEDS: ENOXAPARIN NA (PORCINE) 40 MG/0.4 ML DISP.SYRIN SQ SCH (09:34)
[2021-01-25] MEDS: PANTOPRAZOLE SODIUM 40 MG VIAL IVPUSH SCH (09:34)
[2021-01-25] MEDS: NYSTATIN 100,000 UNIT/GM TOPICAL CREAM 15 GM TUBE TP SCH ×2 (09:34→21:41)
[2021-01-25] MEDS: levETIRAcetam 500 MG/5 ML ORAL SOLUTION (UNIT-DOSE CUPS) PEG SCH ×2 (09:34→21:41)
[2021-01-25] MEDS: POLYETHYLENE GLYCOL (HEALTHYLAX) 3350 17 GM PACKET GT SCH ×2 (09:34→21:41)
[2021-01-26] MEDS: VITAMINS A AND D TOPICAL OINTMENT 60 GM TUBE TP SCH ×4 (00:20→17:45)
[2021-01-26] MEDS ORDERED: PT OWN MED DRAWER 7, Y5N ONE ×3 (01:03→17:40)
[2021-01-26] MEDS: CEFTAZIDIME/AVIBACTAM 2.5 GM in DEXTROSE 5%-WATER - 250 ML IVPB SCH ×3 (01:07→17:45)
[2021-01-26] MEDS: BACLOFEN 10 MG TABLET (FP) GT SCH ×3 (06:33→21:32)
[2021-01-26 07:13] LABS: HEMATOCRIT 25.3 % (35.4-49); HEMOGLOBIN 8.8 GM/dL (11.7-16.9); MCH 33.4 pg (25.7-33.7); MCHC 34.7 g/dl (32.0-35.9); MEAN CELL VOLUME 96.4 fl (80-96); MEAN PLT VOLUME 7.7 fl (7.5-11.1); PLATELET COUNT 438 10^3/uL (134-434); RBC 2.62 M/mm3 (4.00-5.60); RDW 17.7 % (11.9-15.9); WHITE BLOOD COUNT 5.6 K/mm3 (4.0-10.0)
[2021-01-26 07:32] LABS: ALBUMIN 2.5 g/dl (3.4-5.0); BLOOD UREA NITROGEN 17.4 mg/dL (7-18); CALCIUM 8.4 mg/dL (8.5-10.1)
[2021-01-26 07:34] LABS: MAGNESIUM 1.7 mg/dL (1.8-2.4)
[2021-01-26 07:35] LABS: CREATININE 0.6 mg/dL (0.55-1.3); PHOSPHOROUS 2.6 mg/dL (2.5-4.9)
[2021-01-26 07:36] LABS: BILIRUBIN,TOTAL 0.2 mg/dL (0.2-1)
[2021-01-26 07:37] LABS: TOT PROT 7.5 g/dl (6.4-8.2)
[2021-01-26] MEDS: PANTOPRAZOLE SODIUM 40 MG VIAL IVPUSH SCH (10:27)
[2021-01-26] MEDS: MIDODRINE HCL 5 MG TABLET GT SCH ×3 (10:28→17:45)
[2021-01-26] MEDS: ENOXAPARIN NA (PORCINE) 40 MG/0.4 ML DISP.SYRIN SQ SCH (10:28)
[2021-01-26] MEDS: levETIRAcetam 500 MG/5 ML ORAL SOLUTION (UNIT-DOSE CUPS) PEG SCH ×2 (10:28→21:32)
[2021-01-26] MEDS: POLYETHYLENE GLYCOL (HEALTHYLAX) 3350 17 GM PACKET GT SCH ×2 (10:29→21:31)
[2021-01-26] MEDS: NYSTATIN 100,000 UNIT/GM TOPICAL CREAM 15 GM TUBE TP SCH ×2 (15:21→21:33)
[2021-01-27] MEDS: CEFTAZIDIME/AVIBACTAM 2.5 GM in DEXTROSE 5%-WATER - 250 ML IVPB SCH ×2 (01:00→12:11)
[2021-01-27] MEDS: VITAMINS A AND D TOPICAL OINTMENT 60 GM TUBE TP SCH ×3 (01:01→13:42)
[2021-01-27] MEDS: BACLOFEN 10 MG TABLET (FP) GT SCH ×2 (05:37→13:43)
[2021-01-27 07:06] LABS: HEMATOCRIT 25.2 % (35.4-49); HEMOGLOBIN 8.5 GM/dL (11.7-16.9); MCH 32.5 pg (25.7-33.7); MCHC 33.7 g/dl (32.0-35.9); MEAN CELL VOLUME 96.6 fl (80-96); MEAN PLT VOLUME 7.4 fl (7.5-11.1); PLATELET COUNT 424 10^3/uL (134-434); RBC 2.61 M/mm3 (4.00-5.60); RDW 18.1 % (11.9-15.9); WHITE BLOOD COUNT 9.9 K/mm3 (4.0-10.0)
[2021-01-27 07:15] LABS: CALCIUM 8.3 mg/dL (8.5-10.1)
[2021-01-27 07:16] LABS: ALBUMIN 2.5 g/dl (3.4-5.0); BLOOD UREA NITROGEN 19.7 mg/dL (7-18); MAGNESIUM 2.2 mg/dL (1.8-2.4)
[2021-01-27 07:19] LABS: BILIRUBIN,TOTAL 0.3 mg/dL (0.2-1); CREATININE 0.5 mg/dL (0.55-1.3); PHOSPHOROUS 3.4 mg/dL (2.5-4.9); TOT PROT 7.2 g/dl (6.4-8.2)
[2021-01-27] MEDS ORDERED: PT OWN MED DRAWER 7, Y5N ONE ×2 (09:28→09:32)
[2021-01-27] MEDS: SCOPOLAMINE HYDROBROMIDE 1 PATCH PATCH.TD72 TD SCH (10:30)
[2021-01-27] MEDS: levETIRAcetam 500 MG/5 ML ORAL SOLUTION (UNIT-DOSE CUPS) PEG SCH (10:30)
[2021-01-27] MEDS: PANTOPRAZOLE SODIUM 40 MG VIAL IVPUSH SCH (10:30)
[2021-01-27] MEDS: POLYETHYLENE GLYCOL (HEALTHYLAX) 3350 17 GM PACKET GT SCH (10:35)
[2021-01-27] MEDS: MIDODRINE HCL 5 MG TABLET GT SCH ×2 (10:35→13:43)
[2021-01-27] MEDS: NYSTATIN 100,000 UNIT/GM TOPICAL CREAM 15 GM TUBE TP SCH (10:36)
[2021-01-27] MEDS: ENOXAPARIN NA (PORCINE) 40 MG/0.4 ML DISP.SYRIN SQ SCH (10:36)
[2021-01-27 13:10] VITALS: BP 117/56; TEMP 99
[2021-01-27 15:02] VITALS: PULSE 58
== END 2021-01-27 17:00 | DRG 871 ==
LOC: JER 09:20 → JERBED 12:06 → J2W 01-20 20:38
PROVIDERS: ADMIT Internal Medicine; ATTEND Internal Medicine
DX: A41.89 Other specified sepsis (principal); R53.2 Functional quadriplegia; J18.9 Pneumonia, unspecified organism; J96.21 Acute and chronic respiratory failure with hypoxia; F73 Profound intellectual disabilities; N39.0 Urinary tract infection, site not specified; K92.2 Gastrointestinal hemorrhage, unspecified; Q67.5 Congenital deformity of spine; R65.20 Severe sepsis without septic shock; Q02 Microcephaly; E16.2 Hypoglycemia, unspecified; G40.909 Epilepsy, unspecified, not intractable, without status epilepticus; D50.9 Iron deficiency anemia, unspecified; G80.9 Cerebral palsy, unspecified; K59.00 Constipation, unspecified; D63.8 Anemia in other chronic diseases classified elsewhere; J04.10 Acute tracheitis without obstruction; B96.1 Klebsiella pneumoniae [K. pneumoniae] as the cause of diseases classified elsewhere; Z93.0 Tracheostomy status; Z99.81 Dependence on supplemental oxygen
CPT/HCPCS: 36415; 71045-TC-FY; 71260-TC; 80053; 81003; 82272; 82728; 82803; 82962; 83540; 83550; 83605; 83735; 84100; 84484; 85025; 85027; 85610; 85730; 87040; 87070; 87086; 87184; 87186; 87205; 87804; 87899; 93005; 93010; 94640; 99285-25; C9803; J0131; J0475; J1756; J3243; Q9967; U0003; U0005

== ENCOUNTER 2022-01-03 18:38 | Inpatient (IN) | payer OTHER ==
[2022-01-03 18:55] VITALS: BMI 27.0
[2022-01-03] MEDS ORDERED: SODIUM CHLORIDE 1,470 ML IV ONE (20:04)
[2022-01-03 21:02] LABS: VENOUS BASE EXCESS 9.4 mmol/L (-2-2); VENOUS PCO2 67.3 mmHg (38-52); VENOUS PH 7.363 (7.310-7.410)
[2022-01-03 21:19] LABS: BASO % 0.6 % (0-2.0); EOS % 4.5 % (0-4.5); HEMATOCRIT 36.6 % (35.4-49); HEMOGLOBIN 12.8 GM/dL (11.7-16.9); LYMPH % 31.1 % (8-40); MCHC 34.9 g/dl (32.0-35.9); MEAN CELL VOLUME 91.8 fl (80-96); MEAN PLT VOLUME 9.3 fl (7.5-11.1); MONO % 7.1 % (3.8-10.2); NEUT % 56.7 % (42.8-82.8); PLATELET COUNT 127 10^3/uL (134-434); RBC 3.98 M/mm3 (4.00-5.60); RDW 14.6 % (11.9-15.9); WHITE BLOOD COUNT 4.8 K/mm3 (4.0-10.0)
[2022-01-03 21:25] LABS: INR 0.99 (0.83-1.09); PROTHROMBIN TIME (PATIENT) 11.4 SEC (9.7-13.0)
[2022-01-03 21:28] LABS: ACTIVATED PTT 60.7 SECONDS (25.2-36.5); BLOOD UREA NITROGEN 17.8 mg/dL (7-18); CALCIUM 9.1 mg/dL (8.5-10.1)
[2022-01-03 21:31] LABS: CREATININE 0.4 mg/dL (0.55-1.3)
[2022-01-03 21:33] LABS: BILIRUBIN,TOTAL 0.2 mg/dL (0.2-1); TOT PROT 7.1 g/dl (6.4-8.2)
[2022-01-03] MEDS ORDERED: DEXTROSE 50%-WATER - 25 GM/50 ML VIAL IVPUSH ONE (22:41)
[2022-01-03] MEDS ORDERED: DEXTROSE 50%-WATER 25 GM/50 ML DISP.SYRIN ONE (22:46)
[2022-01-04] MEDS ORDERED: BACLOFEN 10 MG TABLET (FP) ONE ×3 (04:59→23:33)
[2022-01-04] MEDS: BACLOFEN 10 MG TABLET (FP) GT SCH ×3 (06:01→23:50)
[2022-01-04] MEDS: SIMETHICONE 40 MG/0.6 ML BOTTLE GT SCH ×3 (06:30→23:50)
[2022-01-04 07:13] LABS: BASO % 0.5 % (0-2.0); EOS % 4.2 % (0-4.5); HEMATOCRIT 34.7 % (35.4-49); HEMOGLOBIN 12.2 GM/dL (11.7-16.9); LYMPH % 25.1 % (8-40); MCH 32.2 pg (25.7-33.7); MCHC 35.1 g/dl (32.0-35.9); MEAN CELL VOLUME 91.5 fl (80-96); MEAN PLT VOLUME 8.8 fl (7.5-11.1); MONO % 5.8 % (3.8-10.2); NEUT % 64.4 % (42.8-82.8); PLATELET COUNT 126 10^3/uL (134-434); RBC 3.79 M/mm3 (4.00-5.60); RDW 14.5 % (11.9-15.9); WHITE BLOOD COUNT 4.3 K/mm3 (4.0-10.0)
[2022-01-04 07:31] LABS: CALCIUM 8.7 mg/dL (8.5-10.1)
[2022-01-04 07:32] LABS: ALBUMIN 2.8 g/dl (3.4-5.0); BLOOD UREA NITROGEN 19.2 mg/dL (7-18)
[2022-01-04 07:36] LABS: BILIRUBIN,TOTAL 0.3 mg/dL (0.2-1); CREATININE 0.4 mg/dL (0.55-1.3); PHOSPHOROUS 3.2 mg/dL (2.5-4.9); TOT PROT 6.8 g/dl (6.4-8.2)
[2022-01-04] MEDS ORDERED: ENOXAPARIN NA (PORCINE) 40 MG/0.4 ML DISP.SYRIN SQ ONE (08:15)
[2022-01-04] MEDS ORDERED: ALBUTEROL SO4 2.5/IPRATROPIUM 0.5 INH SOL 3 ML VIAL.NEB. NEB ONE ×2 (08:15→23:33)
[2022-01-04] MEDS ORDERED: POLYETHYLENE GLYCOL (HEALTHYLAX) 3350 17 GM PACKET ONE ×2 (08:15→23:33)
[2022-01-04] MEDS: SCOPOLAMINE HYDROBROMIDE 1 PATCH PATCH.TD72 TD SCH (08:31)
[2022-01-04] MEDS: POLYETHYLENE GLYCOL (HEALTHYLAX) 3350 17 GM PACKET GT SCH ×2 (09:01→23:50)
[2022-01-04] MEDS: LACTOBACILLUS ACIDOPHILUS 1 TABLET GT SCH (09:01)
[2022-01-04] MEDS: ALBUTEROL SO4 2.5/IPRATROPIUM 0.5 INH SOL 3 ML VIAL.NEB. NEB SCH ×2 (09:02→23:50)
[2022-01-04] MEDS: levETIRAcetam 500 MG/5 ML ORAL SOLUTION (UNIT-DOSE CUPS) PEG SCH ×2 (09:02→23:50)
[2022-01-04] MEDS: ENOXAPARIN NA (PORCINE) 40 MG/0.4 ML DISP.SYRIN SQ SCH (09:02)
[2022-01-04] MEDS: ZINC OXIDE 20% TOPICAL OINTMENT 30 GM TUBE NR SCH ×2 (19:03→19:04)
[2022-01-04] MEDS ORDERED: CHOLECALCIFEROL (VIT D3) 1,000 UNIT (25 MCG) TABLET ONE (23:33)
[2022-01-05] MEDS: CHOLECALCIFEROL (VIT D SOLUTION) 400 UNIT/1 ML DROPS GT SCH ×2 (04:12→21:40)
[2022-01-05] MEDS: SENNOSIDES 8.8 MG/5 ML BULK BOTTLE PO SCH ×2 (04:12→21:34)
[2022-01-05] MEDS ORDERED: BACLOFEN 10 MG TABLET (FP) ONE (06:15)
[2022-01-05] MEDS: SIMETHICONE 40 MG/0.6 ML BOTTLE GT SCH ×3 (06:27→21:35)
[2022-01-05] MEDS: BACLOFEN 10 MG TABLET (FP) GT SCH ×3 (06:27→21:36)
[2022-01-05] MEDS: POLYETHYLENE GLYCOL (HEALTHYLAX) 3350 17 GM PACKET GT SCH ×2 (10:55→21:35)
[2022-01-05] MEDS: LACTOBACILLUS ACIDOPHILUS 1 TABLET GT SCH (10:55)
[2022-01-05] MEDS: ENOXAPARIN NA (PORCINE) 40 MG/0.4 ML DISP.SYRIN SQ SCH (10:55)
[2022-01-05] MEDS: MIDODRINE HCL 2.5 MG TABLET PO PRN (10:56)
[2022-01-05] MEDS: ZINC OXIDE 20% TOPICAL OINTMENT 30 GM TUBE NR SCH ×4 (10:57→21:33)
[2022-01-05] MEDS: levETIRAcetam 500 MG/5 ML ORAL SOLUTION (UNIT-DOSE CUPS) PEG SCH ×2 (11:30→21:37)
[2022-01-05 16:07] LABS: BASO % 0.5 % (0-2.0); EOS % 3.4 % (0-4.5); HEMATOCRIT 36.2 % (35.4-49); HEMOGLOBIN 12.2 GM/dL (11.7-16.9); LYMPH % 27.9 % (8-40); MCH 31.1 pg (25.7-33.7); MCHC 33.6 g/dl (32.0-35.9); MEAN CELL VOLUME 92.4 fl (80-96); MEAN PLT VOLUME 10.2 fl (7.5-11.1); MONO % 4.4 % (3.8-10.2); NEUT % 63.8 % (42.8-82.8); PLATELET COUNT 129 10^3/uL (134-434); RBC 3.92 M/mm3 (4.00-5.60); RDW 14.4 % (11.9-15.9); WHITE BLOOD COUNT 4.7 K/mm3 (4.0-10.0)
[2022-01-05] MEDS: PATIENT'S OWN MEDICATION (NON-FORMULARY) (Linaclotide [Linzess] 145 MCG Capsule) GT SCH ×2 (16:18→16:24)
[2022-01-05 16:28] LABS: ALBUMIN 2.8 g/dl (3.4-5.0); BLOOD UREA NITROGEN 21.7 mg/dL (7-18); CALCIUM 9.2 mg/dL (8.5-10.1)
[2022-01-05 16:31] LABS: CREATININE 0.5 mg/dL (0.55-1.3)
[2022-01-05 16:33] LABS: BILIRUBIN,TOTAL 0.3 mg/dL (0.2-1); TOT PROT 6.8 g/dl (6.4-8.2)
[2022-01-05] MEDS: ALBUTEROL SO4 2.5/IPRATROPIUM 0.5 INH SOL 3 ML VIAL.NEB. NEB SCH (21:20)
[2022-01-06] MEDS: ZINC OXIDE 20% TOPICAL OINTMENT 30 GM TUBE NR SCH ×4 (06:17→22:49)
[2022-01-06] MEDS: BACLOFEN 10 MG TABLET (FP) GT SCH ×4 (06:17→22:45)
[2022-01-06] MEDS: SIMETHICONE 40 MG/0.6 ML BOTTLE GT SCH ×4 (06:17→22:47)
[2022-01-06 08:28] LABS: PH,URINE 7.5 (5.0-8.0); URINE APPEARANCE CLOUDY; URINE BILIRUBIN NEGATIVE (NEGATIVE); URINE COLOR YELLOW; URINE GLUCOSE (UA) NEGATIVE (NEGATIVE); URINE KETONE NEGATIVE (NEGATIVE); URINE LEUK ESTERASE NEGATIVE (NEGATIVE); URINE NITRITE NEGATIVE (NEGATIVE); URINE PROTEIN NEGATIVE (NEGATIVE); URINE UROBILINOGEN 0.2 mg/dL (0.2-1.0)
[2022-01-06] MEDS ORDERED: SODIUM CHLORIDE FOR INHALATION 3 ML VIAL.NEB IH SCH (10:00)
[2022-01-06] MEDS: ALBUTEROL SO4 2.5/IPRATROPIUM 0.5 INH SOL 3 ML VIAL.NEB. NEB SCH ×2 (10:00→21:00)
[2022-01-06] MEDS: POLYETHYLENE GLYCOL (HEALTHYLAX) 3350 17 GM PACKET GT SCH ×2 (10:59→22:45)
[2022-01-06] MEDS: LACTOBACILLUS ACIDOPHILUS 1 TABLET GT SCH (10:59)
[2022-01-06] MEDS: levETIRAcetam 500 MG/5 ML ORAL SOLUTION (UNIT-DOSE CUPS) PEG SCH ×2 (11:00→22:46)
[2022-01-06] MEDS: ENOXAPARIN NA (PORCINE) 40 MG/0.4 ML DISP.SYRIN SQ SCH (11:00)
[2022-01-06 12:19] LABS: BASO % 0.5 % (0-2.0); EOS % 1.9 % (0-4.5); HEMATOCRIT 36.8 % (35.4-49); HEMOGLOBIN 12.4 GM/dL (11.7-16.9); LYMPH % 14.5 % (8-40); MCH 31.3 pg (25.7-33.7); MCHC 33.8 g/dl (32.0-35.9); MEAN CELL VOLUME 92.5 fl (80-96); MEAN PLT VOLUME 9.9 fl (7.5-11.1); MONO % 5.7 % (3.8-10.2); NEUT % 77.4 % (42.8-82.8); PLATELET COUNT 137 10^3/uL (134-434); RBC 3.97 M/mm3 (4.00-5.60); RDW 14.7 % (11.9-15.9); WHITE BLOOD COUNT 7.2 K/mm3 (4.0-10.0)
[2022-01-06 12:36] LABS: ALBUMIN 2.9 g/dl (3.4-5.0); CALCIUM 9.1 mg/dL (8.5-10.1)
[2022-01-06 12:37] LABS: BLOOD UREA NITROGEN 29.5 mg/dL (7-18)
[2022-01-06 12:40] LABS: CREATININE 0.6 mg/dL (0.55-1.3)
[2022-01-06 12:41] LABS: BILIRUBIN,TOTAL 0.4 mg/dL (0.2-1); TOT PROT 7.1 g/dl (6.4-8.2)
[2022-01-06] MEDS: SENNOSIDES 8.8 MG/5 ML BULK BOTTLE PO SCH (22:46)
[2022-01-06] MEDS: CHOLECALCIFEROL (VIT D SOLUTION) 400 UNIT/1 ML DROPS GT SCH (22:47)
[2022-01-06] MEDS: MIDODRINE HCL 2.5 MG TABLET PO PRN (23:00)
[2022-01-06 23:08] VITALS: RESP 18
[2022-01-07] MEDS: SCOPOLAMINE HYDROBROMIDE 1 PATCH PATCH.TD72 TD SCH (05:45)
[2022-01-07] MEDS: BACLOFEN 10 MG TABLET (FP) GT SCH (06:14)
[2022-01-07] MEDS: ZINC OXIDE 20% TOPICAL OINTMENT 30 GM TUBE NR SCH (06:14)
[2022-01-07] MEDS: SIMETHICONE 40 MG/0.6 ML BOTTLE GT SCH (06:14)
[2022-01-07 09:17] LABS: BASO % 0.5 % (0-2.0); EOS % 1.6 % (0-4.5); HEMATOCRIT 32.6 % (35.4-49); HEMOGLOBIN 11.5 GM/dL (11.7-16.9); LYMPH % 23.5 % (8-40); MCH 32.7 pg (25.7-33.7); MCHC 35.1 g/dl (32.0-35.9); MEAN CELL VOLUME 93.2 fl (80-96); MEAN PLT VOLUME 9.2 fl (7.5-11.1); NEUT % 66.4 % (42.8-82.8); PLATELET COUNT 116 10^3/uL (134-434); RDW 14.5 % (11.9-15.9); WHITE BLOOD COUNT 7.7 K/mm3 (4.0-10.0)
[2022-01-07 09:55] LABS: ALBUMIN 2.7 g/dl (3.4-5.0); CALCIUM 9.1 mg/dL (8.5-10.1)
[2022-01-07 09:56] LABS: BLOOD UREA NITROGEN 27.4 mg/dL (7-18); MAGNESIUM 2.5 mg/dL (1.8-2.4)
[2022-01-07 09:59] LABS: CREATININE 0.6 mg/dL (0.55-1.3)
[2022-01-07 10:00] LABS: TOT PROT 6.9 g/dl (6.4-8.2)
[2022-01-07] MEDS: ALBUTEROL SO4 2.5/IPRATROPIUM 0.5 INH SOL 3 ML VIAL.NEB. NEB SCH (10:00)
[2022-01-07 10:01] LABS: BILIRUBIN,TOTAL 0.3 mg/dL (0.2-1)
[2022-01-07] MEDS: POLYETHYLENE GLYCOL (HEALTHYLAX) 3350 17 GM PACKET GT SCH (10:55)
[2022-01-07] MEDS: ENOXAPARIN NA (PORCINE) 40 MG/0.4 ML DISP.SYRIN SQ SCH (10:55)
[2022-01-07] MEDS: LACTOBACILLUS ACIDOPHILUS 1 TABLET GT SCH (10:56)
[2022-01-07] MEDS: levETIRAcetam 500 MG/5 ML ORAL SOLUTION (UNIT-DOSE CUPS) PEG SCH (10:57)
[2022-01-07 13:40] VITALS: BP 117/73; PULSE 70; TEMP 98.5
[2022-01-07 16:07] LABS: ATYPICAL pANCA <1:20 titer (Neg:<1:20); C-ANCA <1:20 titer (Neg:<1:20)
== END 2022-01-07 14:55 | disposition home or self-care (01) | DRG 205 ==
LOC: JER 18:38 → JERBED 01-04 00:16 → J7W 01-05 09:44
PROVIDERS: ADMIT Internal Medicine; ATTEND Nurse Practitioner Acute Care
PROC: 3E0G76Z Introduction of Nutritional Substance into Upper GI, Via Natural or Artificial Opening (ICD-10-PCS; principal; 2022-01-04)
DX: J95.01 Hemorrhage from tracheostomy stoma (principal); R53.2 Functional quadriplegia; F73 Profound intellectual disabilities; Q02 Microcephaly; Z93.1 Gastrostomy status; G80.8 Other cerebral palsy; G40.909 Epilepsy, unspecified, not intractable, without status epilepticus; R74.01 Elevation of levels of liver transaminase levels; E16.2 Hypoglycemia, unspecified; R68.0 Hypothermia, not associated with low environmental temperature; Y83.8 Other surgical procedures as the cause of abnormal reaction of the patient, or of later complication, without mention of misadventure at the time of the procedure
CPT/HCPCS: 0241U-QW; 36415; 71045-TC-FY; 71275-TC; 76705-TC; 80053; 81003; 82550; 82553; 82803; 82962; 83516; 83520; 83605; 83735; 84100; 84484; 85025; 85610; 85730; 86038; 86256; 86704; 86803; 86850; 86900; 86901; 87040; 87086; 87340; 87517; 93005; 93010; 94640; 99285-25; J0475; Q9967

== ENCOUNTER 2022-07-17 15:09 | Inpatient (IN) | payer OTHER ==
[2022-07-17] MEDS ORDERED: VANCOMYCIN 1 GM in D5W (PRE-DOCKED) 1,000 MG/250 ML (RESTRICTED TO ID ONLY IVPB ONE (15:45)
[2022-07-17] MEDS ORDERED: PIPERACILLIN/TAZOB 4.5 GM 4.5 GM in DEXTROSE 5%-WATER 100 ML IVPB ONE (15:45)
[2022-07-17] MEDS ORDERED: ACETAMINOPHEN 1000 MG/100 ML BAG IVPB ONE (15:59)
[2022-07-17] MEDS ORDERED: SODIUM CHLORIDE 0.9% 500 ML INFUS.BAG IV ONE (16:05)
[2022-07-17 16:19] LABS: BASO % 0.6 % (0-2.0); EOS % 0.5 % (0-4.5); HEMATOCRIT 19.3 % (35.4-49); LYMPH % 8.5 % (8-40); MCH 30.5 pg (25.7-33.7); MCHC 33.8 g/dl (32.0-35.9); MEAN CELL VOLUME 90.2 fl (80-96); MEAN PLT VOLUME 11.1 fl (7.5-11.1); MONO % 4.7 % (3.8-10.2); NEUT % 85.7 % (42.8-82.8); RBC 2.14 M/mm3 (4.00-5.60); RDW 19.6 % (11.9-15.9); WHITE BLOOD COUNT 7.3 K/mm3 (4.0-10.0)
[2022-07-17] MEDS ORDERED: ACETAMINOPHEN INJECTION 100 ML IVPB ONE (16:22)
[2022-07-17] MEDS ORDERED: VANCOMYCIN/WATER FOR INJ (PEG) 1,000 MG/200 ML BAG IVPB ONE (16:22)
[2022-07-17] MEDS ORDERED: PIPERACILLIN/TAZOB 3.375 GM 3.375 GM/50 ML BAG IVPB ONE (16:23)
[2022-07-17 16:27] LABS: INR 1.1 (0.83-1.09); PROTHROMBIN TIME (PATIENT) 12.7 SEC (9.7-13.0)
[2022-07-17 16:30] LABS: ACTIVATED PTT 45.6 SECONDS (25.2-36.5)
[2022-07-17 16:34] LABS: HEMOGLOBIN 6.5 GM/dL (11.7-16.9); PLATELET COUNT 31 10^3/uL (134-434)
[2022-07-17] MEDS ORDERED: PIPERACILLIN/TAZOB 4.5 GM 4.5 GM/100 ML BAG IVPB ONE (16:39)
[2022-07-17 16:49] LABS: ANISOCYTOSIS 3+; MACROCYTOSIS 1+; OVALOCYTE 1+; TARGET CELLS 2+; TEAR DROP CELLS 1+; TOXIC GRANULATION 2+
[2022-07-17 16:52] LABS: VENOUS BASE EXCESS 9.7 mmol/L (-2-2); VENOUS O2 SATURATION 99.2 % (70-80); VENOUS PCO2 60.4 mmHg (38-52); VENOUS PH 7.389 (7.310-7.410)
[2022-07-17 17:10] LABS: CALCIUM 9.8 mg/dL (8.5-10.1)
[2022-07-17 17:11] LABS: ALBUMIN 2.3 g/dl (3.4-5.0); BLOOD UREA NITROGEN 30.3 mg/dL (7-18)
[2022-07-17 17:14] LABS: CREATININE 0.5 mg/dL (0.55-1.3)
[2022-07-17 17:16] LABS: BILIRUBIN,TOTAL 0.2 mg/dL (0.2-1); TOT PROT 7.2 g/dl (6.4-8.2)
[2022-07-17] MEDS ORDERED: DEXTROSE 5%-NORMAL SALINE 1,000 ML IV ONE (17:23)
[2022-07-17] MEDS ORDERED: NOREPINEPHRINE BITARTRATE 4,000 MCG in DEXTROSE 5%-WATER - 496 ML IV SCH (18:00)
[2022-07-17 18:21] LABS: URINE APPEARANCE CLEAR; URINE BILIRUBIN NEGATIVE (NEGATIVE); URINE COLOR YELLOW; URINE GLUCOSE (UA) NEGATIVE (NEGATIVE); URINE KETONE NEGATIVE (NEGATIVE); URINE NITRITE NEGATIVE (NEGATIVE); URINE PROTEIN NEGATIVE (NEGATIVE); URINE UROBILINOGEN 0.2 mg/dL (0.2-1.0)
[2022-07-17 18:22] LABS: URINE LEUK ESTERASE 4+ (NEGATIVE)
[2022-07-17 18:26] LABS: EPI CELLS 10.9 /uL (0-25.1); URINE RBC 2.1 /uL (0-23.9); URINE WBC 10.4 /uL (0-25.8)
[2022-07-17 18:27] LABS: URINE BACTERIA 44.8 /uL (0-1359)
[2022-07-17] MEDS ORDERED: ENOXAPARIN NA (PORCINE) 40 MG/0.4 ML DISP.SYRIN SQ SCH (19:15)
[2022-07-17] MEDS ORDERED: ACETAMINOPHEN 1000 MG/100 ML BAG IVPB PRN (19:26)
[2022-07-17] MEDS: DOPAMINE 400 MG/D5W - 400,000 MCG/250 ML INFUS.BAG IVPB SCH (21:00)
[2022-07-17] MEDS: PIPERACILLIN/TAZOB 4.5 GM 4.5 GM in DEXTROSE 5%-WATER 100 ML IVPB SCH (22:08)
[2022-07-17] MEDS: MUPIROCIN 2% TOPICAL OINTMENT FOR DECOLONIZATION NS SCH (22:09)
[2022-07-17] MEDS: CHLORHEXIDINE GLUCONATE 4% CLEANSER FOR DECOLONIZATION TP SCH (23:26)
[2022-07-18] MEDS: PIPERACILLIN/TAZOB 4.5 GM 4.5 GM in DEXTROSE 5%-WATER 100 ML IVPB SCH ×5 (02:25→19:33)
[2022-07-18 05:33] LABS: BASO % 0.1 % (0-2.0); EOS % 0.5 % (0-4.5); HEMATOCRIT 21.5 % (35.4-49); HEMOGLOBIN 7.5 GM/dL (11.7-16.9); LYMPH % 6.8 % (8-40); MCHC 35.1 g/dl (32.0-35.9); MEAN CELL VOLUME 85.3 fl (80-96); MEAN PLT VOLUME 10.3 fl (7.5-11.1); MONO % 5.8 % (3.8-10.2); NEUT % 86.8 % (42.8-82.8); RBC 2.52 M/mm3 (4.00-5.60); RDW 20.9 % (11.9-15.9); WHITE BLOOD COUNT 5.6 K/mm3 (4.0-10.0)
[2022-07-18] MEDS ORDERED: VANCOMYCIN/WATER 1250 MG 1,250 MG/250 ML BAG IVPB SCH ×2 (06:00)
[2022-07-18 07:40] LABS: HEMATOCRIT 22.2 % (35.4-49); HEMOGLOBIN 7.8 GM/dL (11.7-16.9); MCH 29.9 pg (25.7-33.7); MCHC 35.1 g/dl (32.0-35.9); MEAN CELL VOLUME 85.2 fl (80-96); RDW 20.6 % (11.9-15.9); WHITE BLOOD COUNT 7.5 K/mm3 (4.0-10.0)
[2022-07-18 07:51] LABS: PLATELET COUNT 28 10^3/uL (134-434)
[2022-07-18 07:56] LABS: ALBUMIN 1.9 g/dl (3.4-5.0); CALCIUM 8.7 mg/dL (8.5-10.1)
[2022-07-18 07:57] LABS: MAGNESIUM 2.7 mg/dL (1.8-2.4)
[2022-07-18 08:00] LABS: CREATININE 0.7 mg/dL (0.55-1.3)
[2022-07-18 08:01] LABS: BILIRUBIN,TOTAL 0.7 mg/dL (0.2-1); PHOSPHOROUS 3.6 mg/dL (2.5-4.9); TOT PROT 6.1 g/dl (6.4-8.2)
[2022-07-18] MEDS ORDERED: LACTATED RINGERS SOLUTION 1000 ML INFUS.BAG IV ONE (09:00)
[2022-07-18] MEDS: MUPIROCIN 2% TOPICAL OINTMENT FOR DECOLONIZATION NS SCH ×2 (09:17→21:01)
[2022-07-18 11:28] LABS: PLATELET COUNT 29 10^3/uL (134-434)
[2022-07-18] MEDS ORDERED: NOREPINEPHRINE BITARTRATE 4 MG/4 ML ML IV ONE (13:02)
[2022-07-18] MEDS: NOREPINEPHRINE BITARTRATE 4,000 MCG in DEXTROSE 5%-WATER - 496 ML IV SCH (20:20)
[2022-07-18] MEDS: DOPAMINE 400 MG/D5W - 400,000 MCG/250 ML INFUS.BAG IVPB SCH (20:34)
[2022-07-18] MEDS: SCOPOLAMINE HYDROBROMIDE 1 PATCH PATCH.TD72 TD SCH (20:35)
[2022-07-18] MEDS: CHLORHEXIDINE GLUCONATE 4% CLEANSER FOR DECOLONIZATION TP SCH (21:01)
[2022-07-18] MEDS: ALBUTEROL SO4 0.083% IH SOL 2.5 MG/3 ML VIAL.NEB. NEB PRN (21:03)
[2022-07-19] MEDS: PIPERACILLIN/TAZOB 4.5 GM 4.5 GM in DEXTROSE 5%-WATER 100 ML IVPB SCH ×3 (01:17→17:00)
[2022-07-19 07:31] LABS: HEMATOCRIT 20.2 % (35.4-49); HEMOGLOBIN 7.1 GM/dL (11.7-16.9); MCH 30.2 pg (25.7-33.7); MCHC 35.2 g/dl (32.0-35.9); MEAN CELL VOLUME 85.8 fl (80-96); MEAN PLT VOLUME 8.8 fl (7.5-11.1); RBC 2.36 M/mm3 (4.00-5.60); RDW 20.5 % (11.9-15.9); WHITE BLOOD COUNT 6.2 K/mm3 (4.0-10.0)
[2022-07-19 07:32] LABS: PLATELET COUNT 24 10^3/uL (134-434)
[2022-07-19 08:10] LABS: CALCIUM 8.5 mg/dL (8.5-10.1)
[2022-07-19 08:11] LABS: BLOOD UREA NITROGEN 19.6 mg/dL (7-18); MAGNESIUM 2.2 mg/dL (1.8-2.4)
[2022-07-19 08:14] LABS: CREATININE 0.6 mg/dL (0.55-1.3); PHOSPHOROUS 3.3 mg/dL (2.5-4.9)
[2022-07-19] MEDS: LACTATED RINGERS SOLUTION 1,000 ML/1,000 ML INFUS.BAG IV SCH (10:50)
[2022-07-19] MEDS: MUPIROCIN 2% TOPICAL OINTMENT FOR DECOLONIZATION NS SCH ×2 (10:50→21:10)
[2022-07-19 15:22] LABS: ALBUMIN 1.8 g/dl (3.4-5.0)
[2022-07-19 15:25] LABS: BILIRUBIN,DIRECT 0.2 mg/dL (0.0-0.2)
[2022-07-19 15:27] LABS: BILIRUBIN,TOTAL 0.5 mg/dL (0.2-1); TOT PROT 5.9 g/dl (6.4-8.2)
[2022-07-19] MEDS: ALBUTEROL SO4 0.083% IH SOL 2.5 MG/3 ML VIAL.NEB. NEB PRN (20:40)
[2022-07-19] MEDS: DOPAMINE 400 MG/D5W - 400,000 MCG/250 ML INFUS.BAG IVPB SCH (21:07)
[2022-07-19] MEDS: CHLORHEXIDINE GLUCONATE 4% CLEANSER FOR DECOLONIZATION TP SCH (21:10)
[2022-07-19] MEDS: NOREPINEPHRINE BITARTRATE 4,000 MCG in DEXTROSE 5%-WATER - 496 ML IV SCH (21:10)
[2022-07-20] MEDS: ALBUTEROL SO4 0.083% IH SOL 2.5 MG/3 ML VIAL.NEB. NEB PRN ×5 (02:26→20:30)
[2022-07-20] MEDS: PIPERACILLIN/TAZOB 4.5 GM 4.5 GM in DEXTROSE 5%-WATER 100 ML IVPB SCH ×3 (02:56→17:30)
[2022-07-20] MEDS: DOPAMINE 400 MG/D5W - 400,000 MCG/250 ML INFUS.BAG IVPB SCH ×2 (07:34→20:50)
[2022-07-20] MEDS: MUPIROCIN 2% TOPICAL OINTMENT FOR DECOLONIZATION NS SCH ×2 (11:07→21:09)
[2022-07-20] MEDS: LACTATED RINGERS SOLUTION 1,000 ML/1,000 ML INFUS.BAG IV SCH (20:50)
[2022-07-20] MEDS: NOREPINEPHRINE BITARTRATE 4,000 MCG in DEXTROSE 5%-WATER - 496 ML IV SCH (20:50)
[2022-07-20 21:10] LABS: BASO % 0.5 % (0-2.0); EOS % 0.5 % (0-4.5); HEMATOCRIT 16.1 % (35.4-49); LYMPH % 16.9 % (8-40); MCH 28.4 pg (25.7-33.7); MEAN CELL VOLUME 85.8 fl (80-96); MEAN PLT VOLUME 10.7 fl (7.5-11.1); MONO % 11.1 % (3.8-10.2); RBC 1.88 M/mm3 (4.00-5.60); RDW 20.2 % (11.9-15.9)
[2022-07-20] MEDS: CHLORHEXIDINE GLUCONATE 4% CLEANSER FOR DECOLONIZATION TP SCH (21:10)
[2022-07-20 21:11] LABS: HEMOGLOBIN 5.3 GM/dL (11.7-16.9); PLATELET COUNT 20 10^3/uL (134-434)
[2022-07-20 21:24] LABS: CALCIUM 8.7 mg/dL (8.5-10.1)
[2022-07-20 21:25] LABS: ALBUMIN 1.6 g/dl (3.4-5.0); BLOOD UREA NITROGEN 18.7 mg/dL (7-18); MAGNESIUM 1.7 mg/dL (1.8-2.4)
[2022-07-20 21:26] LABS: EPI CELLS 12 /uL (0-25.1); HYALINE CASTS 1 /uL (0-3.1); PH,URINE 6.5 (5.0-8.0); URINE APPEARANCE CLEAR; URINE BACTERIA 11 /uL (0-1359); URINE BILIRUBIN NEGATIVE (NEGATIVE); URINE COLOR YELLOW; URINE GLUCOSE (UA) NEGATIVE (NEGATIVE); URINE KETONE NEGATIVE (NEGATIVE); URINE LEUK ESTERASE NEGATIVE (NEGATIVE); URINE NITRITE NEGATIVE (NEGATIVE); URINE PROTEIN 1+ (NEGATIVE); URINE RBC 109 /uL (0-23.9); URINE UROBILINOGEN 0.2 mg/dL (0.2-1.0); URINE WBC 16 /uL (0-25.8)
[2022-07-20 21:28] LABS: CREATININE 0.5 mg/dL (0.55-1.3); PHOSPHOROUS 4.1 mg/dL (2.5-4.9)
[2022-07-20 21:29] LABS: BILIRUBIN,TOTAL 0.5 mg/dL (0.2-1); TOT PROT 5.2 g/dl (6.4-8.2)
[2022-07-20 22:14] LABS: ANISOCYTOSIS 2+; MACROCYTOSIS 0; TARGET CELLS 1+
[2022-07-20 23:01] LABS: HEMATOCRIT 15.2 % (35.4-49); MCH 28.8 pg (25.7-33.7); MCHC 33.2 g/dl (32.0-35.9); MEAN CELL VOLUME 86.7 fl (80-96); MEAN PLT VOLUME 8.5 fl (7.5-11.1); RBC 1.75 M/mm3 (4.00-5.60); RDW 19.8 % (11.9-15.9); WHITE BLOOD COUNT 4.2 K/mm3 (4.0-10.0)
[2022-07-20 23:02] LABS: HEMOGLOBIN 5.1 GM/dL (11.7-16.9); PLATELET COUNT 28 10^3/uL (134-434)
[2022-07-20] MEDS ORDERED: MAGNESIUM SULF 50% (8.12 MEQ/2 ML-1 GM VIAL) IVPB ONE (23:30)
[2022-07-21] MEDS: DOPAMINE 400 MG/D5W - 400,000 MCG/250 ML INFUS.BAG IVPB SCH ×2 (01:06→21:15)
[2022-07-21] MEDS: ALBUTEROL SO4 0.083% IH SOL 2.5 MG/3 ML VIAL.NEB. NEB PRN ×4 (02:43→20:05)
[2022-07-21] MEDS: PIPERACILLIN/TAZOB 4.5 GM 4.5 GM in DEXTROSE 5%-WATER 100 ML IVPB SCH ×3 (05:45→17:29)
[2022-07-21] MEDS: levETIRAcetam 500 MG/5 ML ORAL SOLUTION (UNIT-DOSE CUPS) PO SCH ×2 (09:25→22:19)
[2022-07-21] MEDS: MUPIROCIN 2% TOPICAL OINTMENT FOR DECOLONIZATION NS SCH ×2 (09:25→22:20)
[2022-07-21] MEDS: LACTATED RINGERS SOLUTION 1,000 ML/1,000 ML INFUS.BAG IV SCH (09:25)
[2022-07-21 11:01] LABS: BASO % 0.4 % (0-2.0); EOS % 1.3 % (0-4.5); HEMATOCRIT 24.3 % (35.4-49); HEMOGLOBIN 8.3 GM/dL (11.7-16.9); LYMPH % 9.2 % (8-40); MCH 29.6 pg (25.7-33.7); MEAN CELL VOLUME 86.9 fl (80-96); MONO % 6.8 % (3.8-10.2); NEUT % 82.3 % (42.8-82.8); RDW 17.8 % (11.9-15.9); WHITE BLOOD COUNT 4.2 K/mm3 (4.0-10.0)
[2022-07-21 11:05] LABS: MEAN PLT VOLUME 8.3 fl (7.5-11.1)
[2022-07-21 11:28] LABS: PLATELET COUNT 35 10^3/uL (134-434)
[2022-07-21 11:31] LABS: ALBUMIN 1.8 g/dl (3.4-5.0); BLOOD UREA NITROGEN 19.9 mg/dL (7-18)
[2022-07-21 11:34] LABS: CREATININE 0.5 mg/dL (0.55-1.3); PHOSPHOROUS 3.8 mg/dL (2.5-4.9)
[2022-07-21 11:35] LABS: BILIRUBIN,TOTAL 0.7 mg/dL (0.2-1); TOT PROT 5.9 g/dl (6.4-8.2)
[2022-07-21] MEDS: MIDODRINE HCL 2.5 MG TABLET PO SCH (17:29)
[2022-07-21] MEDS: NOREPINEPHRINE BITARTRATE 4,000 MCG in DEXTROSE 5%-WATER - 496 ML IV SCH (21:15)
[2022-07-21] MEDS: CHLORHEXIDINE GLUCONATE 4% CLEANSER FOR DECOLONIZATION TP SCH (22:19)
[2022-07-21] MEDS: SCOPOLAMINE HYDROBROMIDE 1 PATCH PATCH.TD72 TD SCH (22:20)
[2022-07-22] MEDS: PIPERACILLIN/TAZOB 4.5 GM 4.5 GM in DEXTROSE 5%-WATER 100 ML IVPB SCH ×3 (01:18→17:34)
[2022-07-22 08:06] LABS: HEMATOCRIT 22.8 % (35.4-49); HEMOGLOBIN 7.9 GM/dL (11.7-16.9); MCH 30.2 pg (25.7-33.7); MCHC 34.6 g/dl (32.0-35.9); MEAN CELL VOLUME 87.2 fl (80-96); MEAN PLT VOLUME 8.7 fl (7.5-11.1); PLATELET COUNT 45 10^3/uL (134-434); RBC 2.61 M/mm3 (4.00-5.60); RDW 17.2 % (11.9-15.9); WHITE BLOOD COUNT 3.4 K/mm3 (4.0-10.0)
[2022-07-22 08:18] LABS: CHLORIDE 104 mmol/L (98-107); SODIUM 143 mmol/L (136-145)
[2022-07-22 08:24] LABS: CALCIUM 8.7 mg/dL (8.5-10.1)
[2022-07-22 08:25] LABS: ALBUMIN 1.8 g/dl (3.4-5.0); ANION GAP 4 MMOL/L (8-16); BLOOD UREA NITROGEN 22.9 mg/dL (7-18); CO2 35 mmol/L (21-32)
[2022-07-22 08:27] LABS: MAGNESIUM 1.9 mg/dL (1.8-2.4)
[2022-07-22 08:28] LABS: CREATININE 0.5 mg/dL (0.55-1.3); SGOT/AST 64 U/L (15-37); SGPT/ALT 60 U/L (13-61)
[2022-07-22 08:29] LABS: BILIRUBIN,TOTAL 1.2 mg/dL (0.2-1)
[2022-07-22 08:30] LABS: PHOSPHOROUS 3.3 mg/dL (2.5-4.9); TOT PROT 5.9 g/dl (6.4-8.2)
[2022-07-22 08:31] LABS: ALK PHOS 611 U/L (45-117); GLUCOSE,RANDOM 47 mg/dL (74-106)
[2022-07-22] MEDS ORDERED: DEXTROSE 50%-WATER - 25 GM/50 ML VIAL IVPUSH ONE (08:50)
[2022-07-22] MEDS ORDERED: SENNOSIDES 8.8 MG/5 ML SYRUP PEG ONE (08:50)
[2022-07-22] MEDS ORDERED: DEXTROSE 50%-WATER 25 GM/50 ML DISP.SYRIN ONE (09:11)
[2022-07-22] MEDS: levETIRAcetam 500 MG/5 ML ORAL SOLUTION (UNIT-DOSE CUPS) PO SCH ×2 (09:30→21:46)
[2022-07-22] MEDS: MIDODRINE HCL 2.5 MG TABLET PO SCH ×3 (09:30→17:34)
[2022-07-22] MEDS: MUPIROCIN 2% TOPICAL OINTMENT FOR DECOLONIZATION NS SCH (09:30)
[2022-07-22 10:32] LABS: ANISOCYTOSIS 2+; MACROCYTOSIS 0; OVALOCYTE 2+
[2022-07-22] MEDS: methylPREDNISolone NA SUCC 40 MG/1 ML VIAL IVPUSH SCH ×2 (11:13→17:34)
[2022-07-22] MEDS ORDERED: DEXTROSE 5%-WATER - 1,000 ML IV SCH (11:45)
[2022-07-22] MEDS: ALBUTEROL SO4 2.5/IPRATROPIUM 0.5 INH SOL 3 ML VIAL.NEB. NEB SCH ×3 (12:00→20:37)
[2022-07-22] MEDS ORDERED: DEXTROSE 5%-0.45% SALINE 1,000 ML IV SCH (12:30)
[2022-07-22] MEDS ORDERED: FUROSEMIDE 40 MG/4 ML INJECTABLE VIAL IVPUSH ONE (13:39)
[2022-07-22] MEDS ORDERED: DEXTROSE 50%-WATER 25 GM/50 ML DISP.SYRIN IVPUSH PRN (13:55)
[2022-07-22 16:18] VITALS: BMI 29.5
[2022-07-22] MEDS: CHLORHEXIDINE GLUCONATE 4% CLEANSER FOR DECOLONIZATION TP SCH (21:46)
[2022-07-23] MEDS: methylPREDNISolone NA SUCC 40 MG/1 ML VIAL IVPUSH SCH ×3 (02:16→20:00)
[2022-07-23] MEDS: PIPERACILLIN/TAZOB 4.5 GM 4.5 GM in DEXTROSE 5%-WATER 100 ML IVPB SCH ×3 (02:16→17:18)
[2022-07-23 06:53] LABS: BASO % 0.2 % (0-2.0); EOS % 0.1 % (0-4.5); HEMATOCRIT 21.9 % (35.4-49); HEMOGLOBIN 7.6 GM/dL (11.7-16.9); LYMPH % 14.9 % (8-40); MCH 30.5 pg (25.7-33.7); MCHC 34.5 g/dl (32.0-35.9); MEAN CELL VOLUME 88.2 fl (80-96); MEAN PLT VOLUME 8.6 fl (7.5-11.1); MONO % 5.5 % (3.8-10.2); NEUT % 79.3 % (42.8-82.8); PLATELET COUNT 96 10^3/uL (134-434); RBC 2.49 M/mm3 (4.00-5.60); RDW 17.3 % (11.9-15.9); WHITE BLOOD COUNT 3.1 K/mm3 (4.0-10.0)
[2022-07-23] MEDS: ALBUTEROL SO4 2.5/IPRATROPIUM 0.5 INH SOL 3 ML VIAL.NEB. NEB SCH ×4 (07:51→20:36)
[2022-07-23 07:52] LABS: BILIRUBIN,TOTAL 1.7 mg/dL (0.2-1); BLOOD UREA NITROGEN 29.6 mg/dL (7-18); CREATININE 0.7 mg/dL (0.55-1.3); PHOSPHOROUS 3.4 mg/dL (2.5-4.9); TOT PROT 6.3 g/dl (6.4-8.2)
[2022-07-23] MEDS ORDERED: METOCLOPRAMIDE HCL INJECTION 10 MG/2 ML VIAL IVPUSH ONE (08:49)
[2022-07-23] MEDS: MIDODRINE HCL 2.5 MG TABLET PO SCH ×2 (09:35→15:31)
[2022-07-23] MEDS: levETIRAcetam 500 MG/5 ML ORAL SOLUTION (UNIT-DOSE CUPS) PO SCH (09:35)
[2022-07-23] MEDS: PANTOPRAZOLE SODIUM 40 MG VIAL IVPUSH SCH (09:35)
[2022-07-23] MEDS ORDERED: PANTOPRAZOLE SOD 40 MG SUSPENSION PACKET PO SCH (10:00)
[2022-07-23] MEDS ORDERED: SENNOSIDES 8.8 MG/5 ML SYRUP PO SCH (10:00)
[2022-07-23] MEDS ORDERED: LACTATED RINGERS SOLUTION 1000 ML INFUS.BAG IV ONE (10:46)
[2022-07-23] MEDS: DEXTROSE 5%-0.45% SALINE 1,000 ML IV SCH (10:58)
[2022-07-23] MEDS ORDERED: AMINO ACID 8 % IN D14W 1,000 ML IV.SOLN IV ONE (12:04)
[2022-07-23] MEDS: AMINO ACIDS 4.25%/D5W 1,000 ML IV SCH (14:23)
[2022-07-23] MEDS: MIDODRINE HCL 2.5 MG TABLET GT SCH (17:19)
[2022-07-23] MEDS ORDERED: methylPREDNISolone NA SUCC 40 MG/1 ML VIAL IVPUSH SCH (19:00)
[2022-07-23] MEDS: CHLORHEXIDINE GLUCONATE 4% CLEANSER FOR DECOLONIZATION TP SCH (22:08)
[2022-07-23] MEDS: levETIRAcetam 500 MG/5 ML ORAL SOLUTION (UNIT-DOSE CUPS) GT SCH (22:09)
[2022-07-23] MEDS: SENNOSIDES 8.8 MG/5 ML SYRUP GT SCH (22:09)
[2022-07-24] MEDS: PIPERACILLIN/TAZOB 4.5 GM 4.5 GM in DEXTROSE 5%-WATER 100 ML IVPB SCH ×3 (01:50→17:11)
[2022-07-24] MEDS: methylPREDNISolone NA SUCC 40 MG/1 ML VIAL IVPUSH SCH ×3 (02:24→18:27)
[2022-07-24] MEDS: ALBUTEROL SO4 2.5/IPRATROPIUM 0.5 INH SOL 3 ML VIAL.NEB. NEB SCH ×4 (08:35→20:42)
[2022-07-24 09:45] LABS: BASO % 0.1 % (0-2.0); HEMATOCRIT 19.6 % (35.4-49); MCH 30.8 pg (25.7-33.7); MCHC 34.4 g/dl (32.0-35.9); MEAN CELL VOLUME 89.5 fl (80-96); MEAN PLT VOLUME 8.1 fl (7.5-11.1); MONO % 3.8 % (3.8-10.2); NEUT % 85.1 % (42.8-82.8); PLATELET COUNT 175 10^3/uL (134-434); RBC 2.19 M/mm3 (4.00-5.60); WHITE BLOOD COUNT 5.4 K/mm3 (4.0-10.0)
[2022-07-24 09:46] LABS: HEMOGLOBIN 6.8 GM/dL (11.7-16.9)
[2022-07-24] MEDS: DEXTROSE 5%-0.45% SALINE 1,000 ML IV SCH (10:00)
[2022-07-24] MEDS: PANTOPRAZOLE SODIUM 40 MG VIAL IVPUSH SCH (10:01)
[2022-07-24] MEDS: levETIRAcetam 500 MG/5 ML ORAL SOLUTION (UNIT-DOSE CUPS) GT SCH ×2 (10:01→21:52)
[2022-07-24 10:17] LABS: CALCIUM 8.6 mg/dL (8.5-10.1)
[2022-07-24 10:18] LABS: ALBUMIN 2.1 g/dl (3.4-5.0); BLOOD UREA NITROGEN 29.3 mg/dL (7-18); MAGNESIUM 2.1 mg/dL (1.8-2.4)
[2022-07-24 10:21] LABS: CREATININE 0.5 mg/dL (0.55-1.3); PHOSPHOROUS 2.9 mg/dL (2.5-4.9)
[2022-07-24 10:22] LABS: BILIRUBIN,TOTAL 0.8 mg/dL (0.2-1); TOT PROT 6.2 g/dl (6.4-8.2)
[2022-07-24] MEDS: SENNOSIDES 8.8 MG/5 ML SYRUP GT SCH ×2 (10:35→21:52)
[2022-07-24] MEDS: MIDODRINE HCL 2.5 MG TABLET GT SCH ×3 (10:36→17:11)
[2022-07-24] MEDS ORDERED: POTASSIUM CHLORIDE ORAL LIQUID 20 MEQ/15 ML GT ONE (13:10)
[2022-07-24] MEDS: AMINO ACIDS 4.25%/D5W 1,000 ML IV SCH (13:27)
[2022-07-24 21:29] LABS: CALCIUM 8.3 mg/dL (8.5-10.1)
[2022-07-24 21:30] LABS: BLOOD UREA NITROGEN 25.8 mg/dL (7-18)
[2022-07-24 21:33] LABS: CREATININE 0.5 mg/dL (0.55-1.3)
[2022-07-24] MEDS: SCOPOLAMINE HYDROBROMIDE 1 PATCH PATCH.TD72 TD SCH (21:52)
[2022-07-24] MEDS: CHLORHEXIDINE GLUCONATE 4% CLEANSER FOR DECOLONIZATION TP SCH (21:52)
[2022-07-24] MEDS ORDERED: POTASSIUM CHLORIDE ORAL LIQUID 20 MEQ/15 ML PO ONE (23:31)
[2022-07-25] MEDS: PIPERACILLIN/TAZOB 4.5 GM 4.5 GM in DEXTROSE 5%-WATER 100 ML IVPB SCH ×2 (01:23→10:36)
[2022-07-25] MEDS: ALBUTEROL SO4 0.083% IH SOL 2.5 MG/3 ML VIAL.NEB. NEB PRN (03:20)
[2022-07-25] MEDS: methylPREDNISolone NA SUCC 40 MG/1 ML VIAL IVPUSH SCH ×3 (03:40→18:15)
[2022-07-25 07:35] LABS: HEMATOCRIT 23.4 % (35.4-49); HEMOGLOBIN 8.1 GM/dL (11.7-16.9); MCHC 34.6 g/dl (32.0-35.9); MEAN CELL VOLUME 89.5 fl (80-96); MEAN PLT VOLUME 7.4 fl (7.5-11.1); PLATELET COUNT 235 10^3/uL (134-434); RBC 2.62 M/mm3 (4.00-5.60); RDW 16.3 % (11.9-15.9); WHITE BLOOD COUNT 5.4 K/mm3 (4.0-10.0)
[2022-07-25 08:17] LABS: ALBUMIN 2.1 g/dl (3.4-5.0); BLOOD UREA NITROGEN 24.6 mg/dL (7-18); CALCIUM 8.4 mg/dL (8.5-10.1)
[2022-07-25 08:20] LABS: CREATININE 0.5 mg/dL (0.55-1.3)
[2022-07-25 08:21] LABS: TOT PROT 6.3 g/dl (6.4-8.2)
[2022-07-25 08:22] LABS: BILIRUBIN,TOTAL 0.6 mg/dL (0.2-1)
[2022-07-25] MEDS: ALBUTEROL SO4 2.5/IPRATROPIUM 0.5 INH SOL 3 ML VIAL.NEB. NEB SCH ×4 (08:31→21:05)
[2022-07-25] MEDS ORDERED: METOCLOPRAMIDE HCL INJECTION 10 MG/2 ML VIAL IVPUSH ONE (10:11)
[2022-07-25 10:23] LABS: ANISOCYTOSIS 0; MACROCYTOSIS 0; ROULEAU 2+
[2022-07-25] MEDS: PANTOPRAZOLE SODIUM 40 MG VIAL IVPUSH SCH (10:37)
[2022-07-25] MEDS: SENNOSIDES 8.8 MG/5 ML SYRUP GT SCH ×2 (10:37→22:54)
[2022-07-25] MEDS: levETIRAcetam 500 MG/5 ML ORAL SOLUTION (UNIT-DOSE CUPS) GT SCH ×2 (10:37→22:15)
[2022-07-25] MEDS: MIDODRINE HCL 2.5 MG TABLET GT SCH ×3 (10:37→17:25)
[2022-07-25] MEDS: AMINO ACIDS 4.25%/D5W 1,000 ML IV SCH (17:25)
[2022-07-25] MEDS: CHLORHEXIDINE GLUCONATE 4% CLEANSER FOR DECOLONIZATION TP SCH (22:15)
[2022-07-26] MEDS: methylPREDNISolone NA SUCC 40 MG/1 ML VIAL IVPUSH SCH ×3 (02:33→18:32)
[2022-07-26] MEDS: ALBUTEROL SO4 2.5/IPRATROPIUM 0.5 INH SOL 3 ML VIAL.NEB. NEB SCH ×4 (08:03→20:05)
[2022-07-26 08:25] LABS: BLOOD UREA NITROGEN 23.3 mg/dL (7-18)
[2022-07-26 08:26] LABS: CALCIUM 8.2 mg/dL (8.5-10.1); MAGNESIUM 1.7 mg/dL (1.8-2.4)
[2022-07-26 08:28] LABS: CREATININE 0.5 mg/dL (0.55-1.3); PHOSPHOROUS 1.9 mg/dL (2.5-4.9)
[2022-07-26 08:38] LABS: MCH 31.5 pg (25.7-33.7); MCHC 34.8 g/dl (32.0-35.9); MEAN CELL VOLUME 90.4 fl (80-96); MEAN PLT VOLUME 7.2 fl (7.5-11.1); PLATELET COUNT 351 10^3/uL (134-434); RBC 2.55 M/mm3 (4.00-5.60); RDW 16.1 % (11.9-15.9); WHITE BLOOD COUNT 4.7 K/mm3 (4.0-10.0)
[2022-07-26] MEDS: levETIRAcetam 500 MG/5 ML ORAL SOLUTION (UNIT-DOSE CUPS) GT SCH ×2 (11:00→23:22)
[2022-07-26] MEDS: PANTOPRAZOLE SODIUM 40 MG VIAL IVPUSH SCH (12:18)
[2022-07-26] MEDS: SENNOSIDES 8.8 MG/5 ML SYRUP GT SCH ×3 (12:18→23:24)
[2022-07-26] MEDS: MIDODRINE HCL 2.5 MG TABLET GT SCH ×3 (12:18→17:33)
[2022-07-26] MEDS: AMINO ACIDS 4.25%/D5W 1,000 ML IV SCH (14:42)
[2022-07-26] MEDS ORDERED: INSULIN (LEVEMIR) 100 UNITS/ML UNITS SQ ONE (18:34)
[2022-07-26] MEDS ORDERED: INSULIN (NOVOLOG) ASPART 100 UNITS/ML 10ML VIAL ONE (18:34)
[2022-07-27] MEDS: methylPREDNISolone NA SUCC 40 MG/1 ML VIAL IVPUSH SCH (04:04)
[2022-07-27] MEDS: ALBUTEROL SO4 2.5/IPRATROPIUM 0.5 INH SOL 3 ML VIAL.NEB. NEB SCH ×4 (08:04→19:27)
[2022-07-27 08:27] LABS: CALCIUM 8.4 mg/dL (8.5-10.1)
[2022-07-27 08:28] LABS: BLOOD UREA NITROGEN 22.7 mg/dL (7-18); MAGNESIUM 1.7 mg/dL (1.8-2.4)
[2022-07-27 08:30] LABS: BASO % 0.1 % (0-2.0); EOS % 0.6 % (0-4.5); HEMATOCRIT 24.7 % (35.4-49); HEMOGLOBIN 8.6 GM/dL (11.7-16.9); LYMPH % 12.3 % (8-40); MCH 31.5 pg (25.7-33.7); MCHC 34.9 g/dl (32.0-35.9); MEAN CELL VOLUME 90.1 fl (80-96); MEAN PLT VOLUME 7.7 fl (7.5-11.1); MONO % 4.4 % (3.8-10.2); NEUT % 82.6 % (42.8-82.8); PLATELET COUNT 468 10^3/uL (134-434); RBC 2.74 M/mm3 (4.00-5.60); RDW 16.2 % (11.9-15.9); WHITE BLOOD COUNT 7.6 K/mm3 (4.0-10.0)
[2022-07-27 08:31] LABS: CREATININE 0.5 mg/dL (0.55-1.3); PHOSPHOROUS 2.3 mg/dL (2.5-4.9)
[2022-07-27] MEDS ORDERED: POTASSIUM PHOSPHATE 30 MM in DEXTROSE 5%-WATER - 500 ML IVPB ONE (09:04)
[2022-07-27] MEDS ORDERED: POTASSIUM CHLORIDE ORAL LIQUID 20 MEQ/15 ML PO ONE (10:00)
[2022-07-27] MEDS ORDERED: PANTOPRAZOLE SODIUM 40 MG VIAL IVPUSH SCH (10:00)
[2022-07-27] MEDS ORDERED: MAGNESIUM SULF 50% (8.12 MEQ/2 ML-1 GM VIAL) IVPB ONE (10:00)
[2022-07-27] MEDS: MIDODRINE HCL 2.5 MG TABLET GT SCH ×3 (10:54→18:47)
[2022-07-27] MEDS: levETIRAcetam 500 MG/5 ML ORAL SOLUTION (UNIT-DOSE CUPS) GT SCH ×2 (10:55→23:12)
[2022-07-27] MEDS: SENNOSIDES 8.8 MG/5 ML SYRUP GT SCH ×2 (10:56→23:12)
[2022-07-27] MEDS ORDERED: MAGNESIUM 2GM/50ML STERILE WATER IVPB IVPB ONE (11:00)
[2022-07-27] MEDS ORDERED: methylPREDNISolone NA SUCC 40 MG/1 ML VIAL IVPUSH SCH ×3 (11:15→19:15)
[2022-07-27] MEDS: AMINO ACIDS 4.25%/D5W 1,000 ML IV SCH (16:17)
[2022-07-27] MEDS ORDERED: PANTOPRAZOLE SOD 40 MG SUSPENSION PACKET PO ONE ×2 (18:04→19:45)
[2022-07-27] MEDS ORDERED: predniSONE 5 MG/5 ML ORAL SOLN- UNIT-DOSE CUP PO ONE ×2 (18:05→19:45)
[2022-07-27] MEDS: SCOPOLAMINE HYDROBROMIDE 1 PATCH PATCH.TD72 TD SCH (22:42)
[2022-07-27] MEDS: predniSONE 5 MG/5 ML ORAL SOLN- UNIT-DOSE CUP PO SCH (23:11)
[2022-07-28] MEDS: ALBUTEROL SO4 2.5/IPRATROPIUM 0.5 INH SOL 3 ML VIAL.NEB. NEB SCH ×4 (08:10→20:05)
[2022-07-28] MEDS: predniSONE 5 MG/5 ML ORAL SOLN- UNIT-DOSE CUP PO SCH (11:38)
[2022-07-28] MEDS: PANTOPRAZOLE SOD 40 MG SUSPENSION PACKET PO SCH (11:39)
[2022-07-28] MEDS: MIDODRINE HCL 2.5 MG TABLET GT SCH ×3 (11:40→18:17)
[2022-07-28] MEDS: levETIRAcetam 500 MG/5 ML ORAL SOLUTION (UNIT-DOSE CUPS) GT SCH ×2 (11:40→21:16)
[2022-07-28] MEDS: SENNOSIDES 8.8 MG/5 ML SYRUP GT SCH ×2 (11:40→21:17)
[2022-07-28 12:12] LABS: BASO % 0.3 % (0-2.0); EOS % 3.8 % (0-4.5); HEMOGLOBIN 8.7 GM/dL (11.7-16.9); LYMPH % 22.2 % (8-40); MCH 31.7 pg (25.7-33.7); MCHC 34.9 g/dl (32.0-35.9); MEAN CELL VOLUME 90.9 fl (80-96); MEAN PLT VOLUME 7.5 fl (7.5-11.1); MONO % 4.5 % (3.8-10.2); NEUT % 69.2 % (42.8-82.8); PLATELET COUNT 515 10^3/uL (134-434); RBC 2.75 M/mm3 (4.00-5.60); RDW 16.3 % (11.9-15.9); WHITE BLOOD COUNT 9.1 K/mm3 (4.0-10.0)
[2022-07-28 12:41] LABS: PHOSPHOROUS 3.7 mg/dL (2.5-4.9)
[2022-07-28 12:42] LABS: ALBUMIN 2.4 g/dl (3.4-5.0); BLOOD UREA NITROGEN 22.1 mg/dL (7-18); CALCIUM 8.7 mg/dL (8.5-10.1)
[2022-07-28 12:43] LABS: BILIRUBIN,TOTAL 0.3 mg/dL (0.2-1); MAGNESIUM 2.1 mg/dL (1.8-2.4); TOT PROT 6.6 g/dl (6.4-8.2)
[2022-07-28 12:45] LABS: CREATININE 0.4 mg/dL (0.55-1.3)
[2022-07-28] MEDS: AMINO ACIDS 4.25%/D5W 1,000 ML IV SCH (18:17)
[2022-07-28] MEDS ORDERED: methylPREDNISolone NA SUCC 40 MG/1 ML VIAL IVPUSH SCH (19:15)
[2022-07-28] MEDS ORDERED: predniSONE 5 MG/5 ML ORAL SOLN- UNIT-DOSE CUP PO ONE (22:00)
[2022-07-29] MEDS: ALBUTEROL SO4 2.5/IPRATROPIUM 0.5 INH SOL 3 ML VIAL.NEB. NEB SCH ×4 (08:45→20:10)
[2022-07-29 08:55] LABS: BASO % 0.8 % (0-2.0); EOS % 1.9 % (0-4.5); HEMOGLOBIN 9.3 GM/dL (11.7-16.9); LYMPH % 23.6 % (8-40); MCH 31.5 pg (25.7-33.7); MCHC 34.3 g/dl (32.0-35.9); MEAN CELL VOLUME 91.7 fl (80-96); MEAN PLT VOLUME 7.6 fl (7.5-11.1); MONO % 7.3 % (3.8-10.2); NEUT % 66.4 % (42.8-82.8); PLATELET COUNT 549 10^3/uL (134-434); RBC 2.95 M/mm3 (4.00-5.60); WHITE BLOOD COUNT 7.1 K/mm3 (4.0-10.0)
[2022-07-29 09:32] LABS: CALCIUM 9.4 mg/dL (8.5-10.1)
[2022-07-29 09:33] LABS: ALBUMIN 2.6 g/dl (3.4-5.0); BLOOD UREA NITROGEN 27.5 mg/dL (7-18); MAGNESIUM 2.1 mg/dL (1.8-2.4)
[2022-07-29 09:34] LABS: PHOSPHOROUS 3.9 mg/dL (2.5-4.9)
[2022-07-29 09:36] LABS: CREATININE 0.5 mg/dL (0.55-1.3)
[2022-07-29 09:37] LABS: TOT PROT 7.2 g/dl (6.4-8.2)
[2022-07-29 09:38] LABS: BILIRUBIN,TOTAL 0.4 mg/dL (0.2-1)
[2022-07-29] MEDS: MIDODRINE HCL 2.5 MG TABLET GT SCH ×3 (10:23→18:30)
[2022-07-29] MEDS: SENNOSIDES 8.8 MG/5 ML SYRUP GT SCH ×2 (10:23→21:51)
[2022-07-29] MEDS: PANTOPRAZOLE SOD 40 MG SUSPENSION PACKET PO SCH (10:23)
[2022-07-29] MEDS: levETIRAcetam 500 MG/5 ML ORAL SOLUTION (UNIT-DOSE CUPS) GT SCH ×2 (10:23→21:51)
[2022-07-29] MEDS: predniSONE 5 MG/5 ML ORAL SOLN- UNIT-DOSE CUP PO SCH ×2 (10:23→21:52)
[2022-07-30] MEDS: ALBUTEROL SO4 2.5/IPRATROPIUM 0.5 INH SOL 3 ML VIAL.NEB. NEB SCH ×4 (08:12→20:13)
[2022-07-30 08:51] LABS: BASO % 0.2 % (0-2.0); EOS % 0.2 % (0-4.5); HEMATOCRIT 26.8 % (35.4-49); HEMOGLOBIN 9.1 GM/dL (11.7-16.9); LYMPH % 16.4 % (8-40); MCH 31.3 pg (25.7-33.7); MONO % 7.1 % (3.8-10.2); NEUT % 76.1 % (42.8-82.8); PLATELET COUNT 580 10^3/uL (134-434); RBC 2.91 M/mm3 (4.00-5.60); RDW 17.4 % (11.9-15.9); WHITE BLOOD COUNT 4.7 K/mm3 (4.0-10.0)
[2022-07-30 09:07] LABS: CALCIUM 9.1 mg/dL (8.5-10.1)
[2022-07-30 09:08] LABS: ALBUMIN 2.7 g/dl (3.4-5.0); BLOOD UREA NITROGEN 29.5 mg/dL (7-18); MAGNESIUM 2.1 mg/dL (1.8-2.4)
[2022-07-30 09:11] LABS: CREATININE 0.6 mg/dL (0.55-1.3); PHOSPHOROUS 3.9 mg/dL (2.5-4.9)
[2022-07-30 09:12] LABS: BILIRUBIN,TOTAL 0.4 mg/dL (0.2-1); TOT PROT 7.3 g/dl (6.4-8.2)
[2022-07-30] MEDS: SENNOSIDES 8.8 MG/5 ML SYRUP GT SCH ×2 (10:02→22:43)
[2022-07-30] MEDS: predniSONE 5 MG/5 ML ORAL SOLN- UNIT-DOSE CUP PO SCH ×2 (10:02→22:43)
[2022-07-30] MEDS: MIDODRINE HCL 2.5 MG TABLET GT SCH ×3 (10:02→17:39)
[2022-07-30] MEDS: levETIRAcetam 500 MG/5 ML ORAL SOLUTION (UNIT-DOSE CUPS) GT SCH ×2 (10:02→22:43)
[2022-07-30] MEDS: PANTOPRAZOLE SOD 40 MG SUSPENSION PACKET PO SCH (10:03)
[2022-07-30] MEDS ORDERED: guaiFENesin/CODEINE 10 ML UNIT-DOSE CUPS PO PRN (12:35)
[2022-07-30] MEDS ORDERED: INSULIN (NOVOLOG) ASPART 100 UNITS/ML 10ML VIAL ONE (17:05)
[2022-07-30] MEDS: SCOPOLAMINE HYDROBROMIDE 1 PATCH PATCH.TD72 TD SCH (22:43)
[2022-07-31] MEDS: ALBUTEROL SO4 2.5/IPRATROPIUM 0.5 INH SOL 3 ML VIAL.NEB. NEB SCH ×4 (07:36→20:52)
[2022-07-31] MEDS: predniSONE 5 MG/5 ML ORAL SOLN- UNIT-DOSE CUP PO SCH ×2 (10:56→22:11)
[2022-07-31] MEDS: SENNOSIDES 8.8 MG/5 ML SYRUP GT SCH ×2 (10:56→22:12)
[2022-07-31] MEDS: PANTOPRAZOLE SOD 40 MG SUSPENSION PACKET PO SCH (10:56)
[2022-07-31] MEDS: levETIRAcetam 500 MG/5 ML ORAL SOLUTION (UNIT-DOSE CUPS) GT SCH ×2 (10:56→22:12)
[2022-07-31] MEDS: MIDODRINE HCL 2.5 MG TABLET GT SCH ×3 (10:56→17:28)
[2022-07-31] MEDS: ENOXAPARIN NA (PORCINE) 40 MG/0.4 ML DISP.SYRIN SQ SCH (11:00)
[2022-07-31] MEDS ORDERED: INSULIN (NOVOLOG) ASPART 100 UNITS/ML 10ML VIAL ONE (19:45)
[2022-08-01 08:21] LABS: BASO % 0.6 % (0-2.0); HEMATOCRIT 29.6 % (35.4-49); HEMOGLOBIN 10.1 GM/dL (11.7-16.9); LYMPH % 25.3 % (8-40); MCH 31.6 pg (25.7-33.7); MCHC 34.1 g/dl (32.0-35.9); MEAN CELL VOLUME 92.8 fl (80-96); MEAN PLT VOLUME 7.3 fl (7.5-11.1); NEUT % 60.1 % (42.8-82.8); PLATELET COUNT 672 10^3/uL (134-434); RBC 3.19 M/mm3 (4.00-5.60); RDW 17.9 % (11.9-15.9); WHITE BLOOD COUNT 5.3 K/mm3 (4.0-10.0)
[2022-08-01 08:45] LABS: BLOOD UREA NITROGEN 42.1 mg/dL (7-18); CALCIUM 9.7 mg/dL (8.5-10.1)
[2022-08-01 08:46] LABS: ALBUMIN 3.1 g/dl (3.4-5.0); MAGNESIUM 2.3 mg/dL (1.8-2.4)
[2022-08-01 08:49] LABS: BILIRUBIN,TOTAL 0.4 mg/dL (0.2-1); CREATININE 0.6 mg/dL (0.55-1.3); PHOSPHOROUS 3.2 mg/dL (2.5-4.9); TOT PROT 7.9 g/dl (6.4-8.2)
[2022-08-01] MEDS: PANTOPRAZOLE SOD 40 MG SUSPENSION PACKET PO SCH (10:22)
[2022-08-01] MEDS: predniSONE 10 MG TABLET (UD) GT SCH ×2 (10:22→23:21)
[2022-08-01] MEDS: levETIRAcetam 500 MG/5 ML ORAL SOLUTION (UNIT-DOSE CUPS) GT SCH ×2 (10:23→23:21)
[2022-08-01] MEDS: MIDODRINE HCL 2.5 MG TABLET GT SCH ×3 (10:23→18:14)
[2022-08-01] MEDS: ENOXAPARIN NA (PORCINE) 40 MG/0.4 ML DISP.SYRIN SQ SCH (10:23)
[2022-08-01] MEDS: SENNOSIDES 8.8 MG/5 ML SYRUP GT SCH ×2 (10:23→23:21)
[2022-08-02] MEDS: MIDODRINE HCL 2.5 MG TABLET GT SCH ×3 (09:46→17:23)
[2022-08-02] MEDS: predniSONE 10 MG TABLET (UD) GT SCH ×2 (09:46→22:24)
[2022-08-02] MEDS: PANTOPRAZOLE SOD 40 MG SUSPENSION PACKET PO SCH (09:46)
[2022-08-02] MEDS: ENOXAPARIN NA (PORCINE) 40 MG/0.4 ML DISP.SYRIN SQ SCH (09:47)
[2022-08-02] MEDS: levETIRAcetam 500 MG/5 ML ORAL SOLUTION (UNIT-DOSE CUPS) GT SCH ×2 (09:47→22:24)
[2022-08-02] MEDS: SENNOSIDES 8.8 MG/5 ML SYRUP GT SCH ×2 (09:47→22:24)
[2022-08-02] MEDS: SCOPOLAMINE HYDROBROMIDE 1 PATCH PATCH.TD72 TD SCH (21:29)
[2022-08-03 06:08] VITALS: PULSE 61
[2022-08-03] MEDS: ENOXAPARIN NA (PORCINE) 40 MG/0.4 ML DISP.SYRIN SQ SCH (10:27)
[2022-08-03] MEDS: PANTOPRAZOLE SOD 40 MG SUSPENSION PACKET PO SCH (10:27)
[2022-08-03] MEDS: MIDODRINE HCL 2.5 MG TABLET GT SCH (10:27)
[2022-08-03] MEDS: SENNOSIDES 8.8 MG/5 ML SYRUP GT SCH (10:27)
[2022-08-03] MEDS: predniSONE 10 MG TABLET (UD) GT SCH (10:28)
[2022-08-03] MEDS: levETIRAcetam 500 MG/5 ML ORAL SOLUTION (UNIT-DOSE CUPS) GT SCH (10:29)
[2022-08-03 11:01] VITALS: BP 121/79; RESP 18; TEMP 98
[2022-08-04] MEDS ORDERED: predniSONE 10 MG TABLET (UD) GT SCH (10:00)
== END 2022-08-03 15:38 | disposition home or self-care (01) | DRG 870 ==
LOC: JER 15:09 → JERBED 17:41 → JICU 20:16 → J7W 07-26 01:12
PROVIDERS: ADMIT Internal Medicine Pulmonary Disease
PROC: 5A1955Z Respiratory Ventilation, Greater than 96 Consecutive Hours (ICD-10-PCS; principal; 2022-07-17)
PROC: 30233N1 Transfusion of Nonautologous Red Blood Cells into Peripheral Vein, Percutaneous Approach (ICD-10-PCS; 2022-07-17)
DX: A41.9 Sepsis, unspecified organism (principal); J18.9 Pneumonia, unspecified organism; R65.21 Severe sepsis with septic shock; R53.2 Functional quadriplegia; N39.0 Urinary tract infection, site not specified; D68.9 Coagulation defect, unspecified; D61.818 Other pancytopenia; K56.7 Ileus, unspecified; E87.0 Hyperosmolality and hypernatremia; D64.9 Anemia, unspecified; G80.9 Cerebral palsy, unspecified; G40.909 Epilepsy, unspecified, not intractable, without status epilepticus; Z93.1 Gastrostomy status; E86.0 Dehydration; Z93.0 Tracheostomy status; Q02 Microcephaly; D69.6 Thrombocytopenia, unspecified; B97.29 Other coronavirus as the cause of diseases classified elsewhere
CPT/HCPCS: 0241U-QW; 36415; 36430; 71045-TC-FY; 74018-TC-FY; 74176-TC; 76700-TC; 80048; 80053; 80076; 81003; 82272; 82308; 82550; 82553; 82803; 82962; 82977; 83010; 83605; 83615; 83735; 84100; 84439; 84443; 84484; 85025; 85027; 85045; 85362; 85384; 85610; 85730; 86140; 86850; 86900; 86901; 86922; 87040; 87070; 87086; 87186; 87205; 87633; 93005; 93010; 94640; 94761; 99291; C9803-CS; G0480; P9038; P9058; U0003; U0005

== ENCOUNTER 2022-09-19 02:38 | Inpatient (IN) | payer OTHER ==
[2022-09-19] MEDS ORDERED: ALBUTEROL SO4 2.5/IPRATROPIUM 0.5 INH SOL 3 ML VIAL.NEB. NEB ONE ×4 (02:52→07:04)
[2022-09-19 03:13] LABS: VENOUS BASE EXCESS 8.3 mmol/L (-2-2); VENOUS O2 SATURATION 99.4 % (70-80); VENOUS PCO2 55.2 mmHg (38-52); VENOUS PH 7.41 (7.310-7.410)
[2022-09-19 03:14] LABS: BASO % 0.3 % (0-2.0); EOS % 2.2 % (0-4.5); HEMATOCRIT 27.3 % (35.4-49); HEMOGLOBIN 9.3 GM/dL (11.7-16.9); LYMPH % 18.8 % (8-40); MCH 31.6 pg (25.7-33.7); MCHC 34.1 g/dl (32.0-35.9); MEAN CELL VOLUME 92.7 fl (80-96); MEAN PLT VOLUME 8.8 fl (7.5-11.1); MONO % 7.6 % (3.8-10.2); NEUT % 71.1 % (42.8-82.8); PLATELET COUNT 105 10^3/uL (134-434); RBC 2.95 M/mm3 (4.00-5.60); RDW 18.8 % (11.9-15.9); WHITE BLOOD COUNT 5.4 K/mm3 (4.0-10.0)
[2022-09-19 03:43] LABS: EPI CELLS 12 /uL (0-25.1); HYALINE CASTS 0 /uL (0-3.1); URINE APPEARANCE CLEAR; URINE BACTERIA 1679 /uL (0-1359); URINE BILIRUBIN NEGATIVE (NEGATIVE); URINE COLOR YELLOW; URINE GLUCOSE (UA) NEGATIVE (NEGATIVE); URINE KETONE NEGATIVE (NEGATIVE); URINE LEUK ESTERASE 2+ (NEGATIVE); URINE NITRITE NEGATIVE (NEGATIVE); URINE PROTEIN NEGATIVE (NEGATIVE); URINE RBC 8 /uL (0-23.9); URINE UROBILINOGEN 0.2 mg/dL (0.2-1.0); URINE WBC 20 /uL (0-25.8)
[2022-09-19 04:09] LABS: POTASSIUM 4.3 mmol/L (3.5-5.1)
[2022-09-19 04:11] LABS: ALBUMIN 2.8 g/dl (3.4-5.0); CALCIUM 9.4 mg/dL (8.5-10.1)
[2022-09-19 04:14] LABS: CREATININE 0.4 mg/dL (0.55-1.3)
[2022-09-19 04:16] LABS: BILIRUBIN,TOTAL 0.2 mg/dL (0.2-1); TOT PROT 7.1 g/dl (6.4-8.2)
[2022-09-19] MEDS ORDERED: VANCOMYCIN 1 GM in D5W (PRE-DOCKED) 1,000 MG/250 ML (RESTRICTED TO ID ONLY IVPB ONE (05:18)
[2022-09-19] MEDS ORDERED: PIPERACILLIN/TAZOB 4.5 GM 4.5 GM in DEXTROSE 5%-WATER 100 ML IVPB ONE (05:18)
[2022-09-19] MEDS ORDERED: SODIUM CHLORIDE 0.9% 500 ML INFUS.BAG IV ONE (05:21)
[2022-09-19] MEDS ORDERED: VANCOMYCIN/WATER FOR INJ (PEG) 1,000 MG/200 ML BAG IVPB ONE (05:24)
[2022-09-19] MEDS ORDERED: PIPERACILLIN/TAZOB 4.5 GM 4.5 GM/100 ML BAG IVPB ONE (05:24)
[2022-09-19] MEDS ORDERED: LACTATED RINGERS SOLUTION 1000 ML INFUS.BAG IV ONE (08:23)
[2022-09-19] MEDS ORDERED: ACETAMINOPHEN 650 MG/20.3 ML ORAL SOLUTION (CUPS) PEG PRN (08:53)
[2022-09-19] MEDS: levETIRAcetam 500 MG/5 ML ORAL SOLUTION (UNIT-DOSE CUPS) PEG SCH ×2 (12:34→21:38)
[2022-09-19] MEDS ORDERED: DOCUSATE NA 100 MG/10 ML UNIT-DOSE CUPS PEG PRN (12:35)
[2022-09-19] MEDS ORDERED: ALBUTEROL SO4 0.083% IH SOL 2.5 MG/3 ML VIAL.NEB. NEB PRN (12:36)
[2022-09-19] MEDS: NOREPINEPHRINE BITARTRATE 4,000 MCG in DEXTROSE 5%-WATER - 496 ML IV SCH (12:40)
[2022-09-19] MEDS: SCOPOLAMINE HYDROBROMIDE 1 PATCH PATCH.TD72 TD SCH (14:29)
[2022-09-19] MEDS ORDERED: PIPERACILLIN/TAZOB 4.5 GM 4.5 GM in DEXTROSE 5%-WATER 100 ML IVPB SCH (15:30)
[2022-09-19] MEDS: MUPIROCIN 2% TOPICAL OINTMENT FOR DECOLONIZATION NS SCH ×2 (16:20→21:38)
[2022-09-19] MEDS: MIDODRINE HCL 5 MG TABLET PEG SCH ×2 (16:25→17:25)
[2022-09-19] MEDS: BACLOFEN 10 MG TABLET (FP) PEG SCH ×2 (17:24→21:40)
[2022-09-19] MEDS: SENNOSIDES 8.8 MG/5 ML SYRUP PEG SCH (21:38)
[2022-09-19] MEDS: CHLORHEXIDINE GLUCONATE 4% CLEANSER FOR DECOLONIZATION TP SCH (21:38)
[2022-09-20] MEDS: PIPERACILLIN/TAZOB 3.375 GM 3.375 GM in DEXTROSE 5%-WATER - 50 ML IVPB SCH ×3 (01:54→17:13)
[2022-09-20] MEDS: BACLOFEN 10 MG TABLET (FP) PEG SCH ×3 (06:41→21:37)
[2022-09-20 07:21] LABS: BASO % 0.7 % (0-2.0); EOS % 3.6 % (0-4.5); HEMATOCRIT 21.3 % (35.4-49); HEMOGLOBIN 7.6 GM/dL (11.7-16.9); LYMPH % 28.7 % (8-40); MCHC 35.7 g/dl (32.0-35.9); MEAN CELL VOLUME 92.3 fl (80-96); MEAN PLT VOLUME 9.4 fl (7.5-11.1); PLATELET COUNT 87 10^3/uL (134-434); RDW 19.4 % (11.9-15.9); WHITE BLOOD COUNT 4.1 K/mm3 (4.0-10.0)
[2022-09-20 07:54] LABS: POTASSIUM 3.5 mmol/L (3.5-5.1)
[2022-09-20 07:55] LABS: CALCIUM 9.1 mg/dL (8.5-10.1)
[2022-09-20 07:56] LABS: BLOOD UREA NITROGEN 13.3 mg/dL (7-18); MAGNESIUM 1.8 mg/dL (1.8-2.4)
[2022-09-20 07:59] LABS: CREATININE 0.5 mg/dL (0.55-1.3); PHOSPHOROUS 2.4 mg/dL (2.5-4.9)
[2022-09-20] MEDS ORDERED: NAPH,MB-DB/K PH,MBDB POWDER PACKET PO ONE (08:58)
[2022-09-20] MEDS: MUPIROCIN 2% TOPICAL OINTMENT FOR DECOLONIZATION NS SCH ×2 (09:40→21:36)
[2022-09-20] MEDS: MIDODRINE HCL 5 MG TABLET PEG SCH ×3 (09:41→17:13)
[2022-09-20] MEDS: levETIRAcetam 500 MG/5 ML ORAL SOLUTION (UNIT-DOSE CUPS) PEG SCH ×2 (09:41→21:37)
[2022-09-20] MEDS: NOREPINEPHRINE BITARTRATE 4,000 MCG in DEXTROSE 5%-WATER - 496 ML IV SCH (13:21)
[2022-09-20] MEDS: CHLORHEXIDINE GLUCONATE 4% CLEANSER FOR DECOLONIZATION TP SCH (21:36)
[2022-09-20] MEDS: SENNOSIDES 8.8 MG/5 ML SYRUP PEG SCH (21:37)
[2022-09-21] MEDS: PIPERACILLIN/TAZOB 3.375 GM 3.375 GM in DEXTROSE 5%-WATER - 50 ML IVPB SCH ×3 (01:31→17:44)
[2022-09-21] MEDS: BACLOFEN 10 MG TABLET (FP) PEG SCH ×3 (06:34→21:37)
[2022-09-21 07:38] LABS: BASO % 0.5 % (0-2.0); EOS % 4.8 % (0-4.5); HEMATOCRIT 23.3 % (35.4-49); HEMOGLOBIN 8.2 GM/dL (11.7-16.9); LYMPH % 28.9 % (8-40); MCH 32.8 pg (25.7-33.7); MCHC 35.2 g/dl (32.0-35.9); MEAN CELL VOLUME 93.3 fl (80-96); MEAN PLT VOLUME 9.3 fl (7.5-11.1); MONO % 12.6 % (3.8-10.2); NEUT % 53.2 % (42.8-82.8); PLATELET COUNT 92 10^3/uL (134-434); RBC 2.49 M/mm3 (4.00-5.60); RDW 19.2 % (11.9-15.9); WHITE BLOOD COUNT 4.6 K/mm3 (4.0-10.0)
[2022-09-21 08:03] LABS: POTASSIUM 3.2 mmol/L (3.5-5.1)
[2022-09-21 08:05] LABS: CALCIUM 9.4 mg/dL (8.5-10.1)
[2022-09-21 08:06] LABS: ALBUMIN 2.6 g/dl (3.4-5.0); BLOOD UREA NITROGEN 15.8 mg/dL (7-18)
[2022-09-21 08:09] LABS: CREATININE 0.5 mg/dL (0.55-1.3); PHOSPHOROUS 3.8 mg/dL (2.5-4.9)
[2022-09-21 08:10] LABS: BILIRUBIN,TOTAL 0.4 mg/dL (0.2-1); TOT PROT 6.5 g/dl (6.4-8.2)
[2022-09-21] MEDS ORDERED: POTASSIUM CHLORIDE ORAL LIQUID 20 MEQ/15 ML PO ONE (08:45)
[2022-09-21] MEDS: levETIRAcetam 500 MG/5 ML ORAL SOLUTION (UNIT-DOSE CUPS) PEG SCH ×2 (09:50→21:37)
[2022-09-21] MEDS: MIDODRINE HCL 5 MG TABLET PEG SCH ×3 (09:51→17:44)
[2022-09-21] MEDS: MUPIROCIN 2% TOPICAL OINTMENT FOR DECOLONIZATION NS SCH ×2 (09:53→21:36)
[2022-09-21] MEDS ORDERED: ALBUTEROL SO4 0.083% IH SOL 2.5 MG/3 ML VIAL.NEB. NEB SCH (11:00)
[2022-09-21] MEDS: SODIUM CHLORIDE 0.45%/POT 20 MEQ/1,000 ML INFUS.BAG IV SCH (11:43)
[2022-09-21] MEDS: ALBUTEROL SO4 0.083% IH SOL 2.5 MG/3 ML VIAL.NEB. NEB SCH ×2 (15:15→20:20)
[2022-09-21] MEDS: CHLORHEXIDINE GLUCONATE 4% CLEANSER FOR DECOLONIZATION TP SCH (21:36)
[2022-09-21] MEDS: SENNOSIDES 8.8 MG/5 ML SYRUP PEG SCH (21:37)
[2022-09-22] MEDS: SODIUM CHLORIDE 0.45%/POT 20 MEQ/1,000 ML INFUS.BAG IV SCH ×2 (01:50→10:25)
[2022-09-22] MEDS: PIPERACILLIN/TAZOB 3.375 GM 3.375 GM in DEXTROSE 5%-WATER - 50 ML IVPB SCH ×3 (02:47→17:16)
[2022-09-22] MEDS: BACLOFEN 10 MG TABLET (FP) PEG SCH ×3 (06:48→21:45)
[2022-09-22 07:03] LABS: BASO % 0.7 % (0-2.0); EOS % 5.7 % (0-4.5); HEMATOCRIT 22.4 % (35.4-49); HEMOGLOBIN 7.5 GM/dL (11.7-16.9); LYMPH % 30.3 % (8-40); MCH 31.8 pg (25.7-33.7); MCHC 33.6 g/dl (32.0-35.9); MEAN CELL VOLUME 94.8 fl (80-96); MEAN PLT VOLUME 8.7 fl (7.5-11.1); MONO % 11.5 % (3.8-10.2); NEUT % 51.8 % (42.8-82.8); PLATELET COUNT 107 10^3/uL (134-434); RBC 2.36 M/mm3 (4.00-5.60); RDW 18.8 % (11.9-15.9); WHITE BLOOD COUNT 4.9 K/mm3 (4.0-10.0)
[2022-09-22 07:30] LABS: POTASSIUM 3.9 mmol/L (3.5-5.1)
[2022-09-22 07:32] LABS: BLOOD UREA NITROGEN 12.7 mg/dL (7-18); CALCIUM 8.7 mg/dL (8.5-10.1); MAGNESIUM 1.4 mg/dL (1.8-2.4)
[2022-09-22 07:33] LABS: ALBUMIN 2.4 g/dl (3.4-5.0)
[2022-09-22 07:36] LABS: CREATININE 0.5 mg/dL (0.55-1.3); PHOSPHOROUS 3.3 mg/dL (2.5-4.9)
[2022-09-22 07:37] LABS: BILIRUBIN,TOTAL 0.4 mg/dL (0.2-1)
[2022-09-22] MEDS: ALBUTEROL SO4 0.083% IH SOL 2.5 MG/3 ML VIAL.NEB. NEB SCH ×4 (08:24→20:00)
[2022-09-22] MEDS: levETIRAcetam 500 MG/5 ML ORAL SOLUTION (UNIT-DOSE CUPS) PEG SCH ×2 (09:53→21:44)
[2022-09-22] MEDS: MIDODRINE HCL 5 MG TABLET PEG SCH ×3 (09:53→17:16)
[2022-09-22] MEDS: MUPIROCIN 2% TOPICAL OINTMENT FOR DECOLONIZATION NS SCH ×2 (09:54→21:45)
[2022-09-22] MEDS ORDERED: MAGNESIUM 2GM/50ML STERILE WATER IVPB IVPB ONE (10:15)
[2022-09-22] MEDS: SCOPOLAMINE HYDROBROMIDE 1 PATCH PATCH.TD72 TD SCH (12:24)
[2022-09-22 21:41] LABS: BASO % 0.5 % (0-2.0); EOS % 3.4 % (0-4.5); HEMATOCRIT 22.3 % (35.4-49); HEMOGLOBIN 7.6 GM/dL (11.7-16.9); LYMPH % 13.9 % (8-40); MCH 31.9 pg (25.7-33.7); MEAN CELL VOLUME 93.7 fl (80-96); MEAN PLT VOLUME 8.2 fl (7.5-11.1); MONO % 8.2 % (3.8-10.2); PLATELET COUNT 109 10^3/uL (134-434); RBC 2.38 M/mm3 (4.00-5.60); RDW 18.8 % (11.9-15.9); WHITE BLOOD COUNT 9.1 K/mm3 (4.0-10.0)
[2022-09-22] MEDS: CHLORHEXIDINE GLUCONATE 4% CLEANSER FOR DECOLONIZATION TP SCH (21:45)
[2022-09-22] MEDS: SENNOSIDES 8.8 MG/5 ML SYRUP PEG SCH (21:45)
[2022-09-23] MEDS: PIPERACILLIN/TAZOB 3.375 GM 3.375 GM in DEXTROSE 5%-WATER - 50 ML IVPB SCH ×3 (01:40→18:21)
[2022-09-23] MEDS: BACLOFEN 10 MG TABLET (FP) PEG SCH ×3 (06:59→21:35)
[2022-09-23 07:00] LABS: BASO % 0.4 % (0-2.0); EOS % 3.1 % (0-4.5); HEMATOCRIT 21.6 % (35.4-49); HEMOGLOBIN 7.4 GM/dL (11.7-16.9); LYMPH % 11.7 % (8-40); MCH 32.1 pg (25.7-33.7); MCHC 34.1 g/dl (32.0-35.9); MEAN CELL VOLUME 93.9 fl (80-96); MEAN PLT VOLUME 8.3 fl (7.5-11.1); MONO % 8.5 % (3.8-10.2); NEUT % 76.3 % (42.8-82.8); PLATELET COUNT 109 10^3/uL (134-434); RDW 18.9 % (11.9-15.9); WHITE BLOOD COUNT 7.2 K/mm3 (4.0-10.0)
[2022-09-23 07:13] LABS: POTASSIUM 3.3 mmol/L (3.5-5.1)
[2022-09-23 07:16] LABS: CALCIUM 8.7 mg/dL (8.5-10.1)
[2022-09-23 07:17] LABS: ALBUMIN 2.5 g/dl (3.4-5.0); BLOOD UREA NITROGEN 7.7 mg/dL (7-18); MAGNESIUM 1.6 mg/dL (1.8-2.4)
[2022-09-23 07:20] LABS: CREATININE 0.4 mg/dL (0.55-1.3); PHOSPHOROUS 3.1 mg/dL (2.5-4.9)
[2022-09-23 07:21] LABS: TOT PROT 6.3 g/dl (6.4-8.2)
[2022-09-23 07:22] LABS: BILIRUBIN,TOTAL 0.4 mg/dL (0.2-1)
[2022-09-23] MEDS ORDERED: POTASSIUM CHLORIDE ORAL LIQUID 20 MEQ/15 ML PO ONE (07:30)
[2022-09-23] MEDS: ALBUTEROL SO4 0.083% IH SOL 2.5 MG/3 ML VIAL.NEB. NEB SCH ×4 (07:45→21:39)
[2022-09-23] MEDS ORDERED: POTASSIUM CHLORIDE TABS 20 MEQ TABLET.ER (FP) PO ONE (07:55)
[2022-09-23] MEDS ORDERED: NAPH,MB-DB/K PH,MBDB POWDER PACKET PO ONE (08:15)
[2022-09-23] MEDS: MIDODRINE HCL 5 MG TABLET PEG SCH ×3 (09:43→18:21)
[2022-09-23] MEDS: levETIRAcetam 500 MG/5 ML ORAL SOLUTION (UNIT-DOSE CUPS) PEG SCH ×2 (09:43→21:35)
[2022-09-23] MEDS: MUPIROCIN 2% TOPICAL OINTMENT FOR DECOLONIZATION NS SCH ×2 (09:44→21:35)
[2022-09-23] MEDS ORDERED: SODIUM CHLORIDE FOR INHALATION 3 ML VIAL.NEB IH PRN (12:12)
[2022-09-23] MEDS ORDERED: MAGNESIUM 2GM/50ML STERILE WATER IVPB IVPB ONE (12:36)
[2022-09-23] MEDS: ACETYLCYSTEINE 20% 200MG/ML 4 ML VIAL *FOR ORAL / INH USE ONLY NEB SCH ×3 (15:22→21:41)
[2022-09-23] MEDS ORDERED: ACETYLCYSTEINE 20% 200MG/ML 10 ML VIAL *FOR ORAL / INH USE ONLY NEB SCH (21:19)
[2022-09-23] MEDS: SENNOSIDES 8.8 MG/5 ML SYRUP PEG SCH (21:35)
[2022-09-23] MEDS: CHLORHEXIDINE GLUCONATE 4% CLEANSER FOR DECOLONIZATION TP SCH (21:36)
[2022-09-24] MEDS: PIPERACILLIN/TAZOB 3.375 GM 3.375 GM in DEXTROSE 5%-WATER - 50 ML IVPB SCH ×3 (01:12→17:42)
[2022-09-24] MEDS: BACLOFEN 10 MG TABLET (FP) PEG SCH ×3 (05:37→21:43)
[2022-09-24 07:31] LABS: BASO % 0.6 % (0-2.0); EOS % 6.5 % (0-4.5); HEMATOCRIT 23.1 % (35.4-49); HEMOGLOBIN 7.7 GM/dL (11.7-16.9); LYMPH % 16.5 % (8-40); MCH 31.2 pg (25.7-33.7); MCHC 33.2 g/dl (32.0-35.9); MEAN PLT VOLUME 8.6 fl (7.5-11.1); MONO % 9.5 % (3.8-10.2); NEUT % 66.9 % (42.8-82.8); PLATELET COUNT 135 10^3/uL (134-434); RBC 2.45 M/mm3 (4.00-5.60); RDW 18.9 % (11.9-15.9); WHITE BLOOD COUNT 7.4 K/mm3 (4.0-10.0)
[2022-09-24] MEDS: ALBUTEROL SO4 0.083% IH SOL 2.5 MG/3 ML VIAL.NEB. NEB SCH ×4 (07:45→21:28)
[2022-09-24 07:53] LABS: POTASSIUM 3.4 mmol/L (3.5-5.1)
[2022-09-24 08:02] LABS: ALBUMIN 2.5 g/dl (3.4-5.0); BLOOD UREA NITROGEN 7.2 mg/dL (7-18); CREATININE 0.4 mg/dL (0.55-1.3); MAGNESIUM 1.9 mg/dL (1.8-2.4); PHOSPHOROUS 3.9 mg/dL (2.5-4.9)
[2022-09-24 08:04] LABS: BILIRUBIN,TOTAL 0.6 mg/dL (0.2-1); TOT PROT 6.4 g/dl (6.4-8.2)
[2022-09-24] MEDS: levETIRAcetam 500 MG/5 ML ORAL SOLUTION (UNIT-DOSE CUPS) PEG SCH ×2 (09:27→21:43)
[2022-09-24] MEDS: MIDODRINE HCL 5 MG TABLET PEG SCH ×3 (09:27→17:42)
[2022-09-24] MEDS ORDERED: POTASSIUM CHLORIDE ORAL LIQUID 20 MEQ/15 ML PO ONE (10:00)
[2022-09-24] MEDS: ACETYLCYSTEINE 20% 200MG/ML 4 ML VIAL *FOR ORAL / INH USE ONLY NEB SCH ×3 (11:19→21:29)
[2022-09-24 14:39] VITALS: BMI 27.6
[2022-09-24] MEDS: SENNOSIDES 8.8 MG/5 ML SYRUP PEG SCH (21:50)
[2022-09-24] MEDS: CHLORHEXIDINE GLUCONATE 4% CLEANSER FOR DECOLONIZATION TP SCH (21:50)
[2022-09-25] MEDS: PIPERACILLIN/TAZOB 3.375 GM 3.375 GM in DEXTROSE 5%-WATER - 50 ML IVPB SCH ×3 (02:22→17:30)
[2022-09-25] MEDS: BACLOFEN 10 MG TABLET (FP) PEG SCH ×2 (05:08→14:03)
[2022-09-25 07:39] LABS: BASO % 0.8 % (0-2.0); EOS % 8.7 % (0-4.5); HEMATOCRIT 21.9 % (35.4-49); HEMOGLOBIN 7.4 GM/dL (11.7-16.9); LYMPH % 22.9 % (8-40); MCH 31.9 pg (25.7-33.7); MCHC 33.9 g/dl (32.0-35.9); MEAN CELL VOLUME 94.1 fl (80-96); MEAN PLT VOLUME 8.6 fl (7.5-11.1); MONO % 9.4 % (3.8-10.2); NEUT % 58.2 % (42.8-82.8); PLATELET COUNT 169 10^3/uL (134-434); RBC 2.33 M/mm3 (4.00-5.60); WHITE BLOOD COUNT 6.3 K/mm3 (4.0-10.0)
[2022-09-25] MEDS: ALBUTEROL SO4 0.083% IH SOL 2.5 MG/3 ML VIAL.NEB. NEB SCH ×4 (08:00→20:50)
[2022-09-25 08:02] LABS: POTASSIUM 3.8 mmol/L (3.5-5.1)
[2022-09-25 08:04] LABS: CALCIUM 9.1 mg/dL (8.5-10.1)
[2022-09-25 08:05] LABS: ALBUMIN 2.6 g/dl (3.4-5.0); BLOOD UREA NITROGEN 8.2 mg/dL (7-18); MAGNESIUM 1.7 mg/dL (1.8-2.4)
[2022-09-25 08:08] LABS: CREATININE 0.4 mg/dL (0.55-1.3); PHOSPHOROUS 3.8 mg/dL (2.5-4.9)
[2022-09-25 08:09] LABS: BILIRUBIN,TOTAL 0.6 mg/dL (0.2-1); TOT PROT 6.7 g/dl (6.4-8.2)
[2022-09-25] MEDS: ACETYLCYSTEINE 20% 200MG/ML 4 ML VIAL *FOR ORAL / INH USE ONLY NEB SCH (08:26)
[2022-09-25] MEDS: MIDODRINE HCL 5 MG TABLET PEG SCH ×3 (09:20→17:30)
[2022-09-25] MEDS: levETIRAcetam 500 MG/5 ML ORAL SOLUTION (UNIT-DOSE CUPS) PEG SCH (09:20)
[2022-09-25] MEDS: POLYETHYLENE GLYCOL (HEALTHYLAX) 3350 17 GM PACKET GT SCH (11:32)
[2022-09-25] MEDS: SCOPOLAMINE HYDROBROMIDE 1 PATCH PATCH.TD72 TD SCH (14:02)
[2022-09-25] MEDS ORDERED: MAGNESIUM SULF 50% (8.12 MEQ/2 ML-1 GM VIAL) IVPB ONE (14:29)
[2022-09-25] MEDS ORDERED: DOCUSATE NA 100 MG/10 ML UNIT-DOSE CUPS PEG PRN (18:29)
[2022-09-25] MEDS ORDERED: ACETAMINOPHEN 650 MG/20.3 ML ORAL SOLUTION (CUPS) PEG PRN (18:29)
[2022-09-25] MEDS ORDERED: CHLORHEXIDINE GLUCONATE 4% CLEANSER FOR DECOLONIZATION TP SCH (22:00)
[2022-09-26] MEDS: BACLOFEN 10 MG TABLET (FP) PEG SCH ×4 (00:02→22:14)
[2022-09-26] MEDS: levETIRAcetam 500 MG/5 ML ORAL SOLUTION (UNIT-DOSE CUPS) PEG SCH ×3 (00:03→22:14)
[2022-09-26] MEDS: SENNOSIDES 8.8 MG/5 ML SYRUP PEG SCH ×2 (00:03→22:14)
[2022-09-26] MEDS: POLYETHYLENE GLYCOL (HEALTHYLAX) 3350 17 GM PACKET GT SCH ×3 (00:03→22:14)
[2022-09-26] MEDS: PIPERACILLIN/TAZOB 3.375 GM 3.375 GM in DEXTROSE 5%-WATER - 50 ML IVPB SCH ×3 (02:14→17:39)
[2022-09-26 07:39] LABS: BASO % 0.8 % (0-2.0); EOS % 11.9 % (0-4.5); HEMATOCRIT 21.4 % (35.4-49); HEMOGLOBIN 7.4 GM/dL (11.7-16.9); LYMPH % 28.8 % (8-40); MCH 32.4 pg (25.7-33.7); MCHC 34.7 g/dl (32.0-35.9); MEAN CELL VOLUME 93.4 fl (80-96); MEAN PLT VOLUME 7.9 fl (7.5-11.1); MONO % 7.1 % (3.8-10.2); NEUT % 51.4 % (42.8-82.8); PLATELET COUNT 199 10^3/uL (134-434); RBC 2.29 M/mm3 (4.00-5.60); RDW 18.7 % (11.9-15.9); WHITE BLOOD COUNT 4.8 K/mm3 (4.0-10.0)
[2022-09-26] MEDS: ALBUTEROL SO4 0.083% IH SOL 2.5 MG/3 ML VIAL.NEB. NEB SCH ×2 (08:06→11:19)
[2022-09-26 08:07] LABS: CALCIUM 8.9 mg/dL (8.5-10.1)
[2022-09-26 08:09] LABS: ALBUMIN 2.5 g/dl (3.4-5.0); BLOOD UREA NITROGEN 9.6 mg/dL (7-18)
[2022-09-26 08:11] LABS: CREATININE 0.4 mg/dL (0.55-1.3); PHOSPHOROUS 3.9 mg/dL (2.5-4.9)
[2022-09-26 08:13] LABS: BILIRUBIN,TOTAL 0.4 mg/dL (0.2-1); TOT PROT 6.7 g/dl (6.4-8.2)
[2022-09-26 08:17] LABS: POTASSIUM 3.4 mmol/L (3.5-5.1)
[2022-09-26] MEDS: MIDODRINE HCL 5 MG TABLET PEG SCH ×3 (10:16→17:39)
[2022-09-26] MEDS ORDERED: POTASSIUM CHLORIDE ORAL LIQUID 20 MEQ/15 ML PO ONE (13:04)
[2022-09-27] MEDS: PIPERACILLIN/TAZOB 3.375 GM 3.375 GM in DEXTROSE 5%-WATER - 50 ML IVPB SCH ×3 (01:55→17:31)
[2022-09-27] MEDS: BACLOFEN 10 MG TABLET (FP) PEG SCH ×3 (06:44→21:13)
[2022-09-27] MEDS: POLYETHYLENE GLYCOL (HEALTHYLAX) 3350 17 GM PACKET GT SCH ×2 (10:40→21:13)
[2022-09-27] MEDS: MIDODRINE HCL 5 MG TABLET PEG SCH ×3 (10:40→17:31)
[2022-09-27] MEDS: levETIRAcetam 500 MG/5 ML ORAL SOLUTION (UNIT-DOSE CUPS) PEG SCH ×2 (10:40→21:13)
[2022-09-27 10:43] LABS: BASO % 0.6 % (0-2.0); EOS % 7.5 % (0-4.5); HEMATOCRIT 22.6 % (35.4-49); HEMOGLOBIN 7.7 GM/dL (11.7-16.9); LYMPH % 18.8 % (8-40); MCHC 33.9 g/dl (32.0-35.9); MEAN CELL VOLUME 94.4 fl (80-96); MEAN PLT VOLUME 7.3 fl (7.5-11.1); MONO % 4.7 % (3.8-10.2); NEUT % 68.4 % (42.8-82.8); PLATELET COUNT 332 10^3/uL (134-434); RDW 18.7 % (11.9-15.9); WHITE BLOOD COUNT 8.1 K/mm3 (4.0-10.0)
[2022-09-27 11:00] LABS: POTASSIUM 3.9 mmol/L (3.5-5.1)
[2022-09-27 11:02] LABS: CALCIUM 9.1 mg/dL (8.5-10.1)
[2022-09-27 11:03] LABS: BLOOD UREA NITROGEN 12.5 mg/dL (7-18); MAGNESIUM 1.8 mg/dL (1.8-2.4)
[2022-09-27 11:06] LABS: ALBUMIN 2.6 g/dl (3.4-5.0); CREATININE 0.4 mg/dL (0.55-1.3); PHOSPHOROUS 3.6 mg/dL (2.5-4.9)
[2022-09-27 11:07] LABS: BILIRUBIN,TOTAL 0.2 mg/dL (0.2-1); TOT PROT 6.8 g/dl (6.4-8.2)
[2022-09-27] MEDS: SENNOSIDES 8.8 MG/5 ML SYRUP PEG SCH (21:13)
[2022-09-28] MEDS: PIPERACILLIN/TAZOB 3.375 GM 3.375 GM in DEXTROSE 5%-WATER - 50 ML IVPB SCH ×2 (01:02→11:26)
[2022-09-28] MEDS: BACLOFEN 10 MG TABLET (FP) PEG SCH ×3 (05:00→21:20)
[2022-09-28 08:56] LABS: BASO % 0.6 % (0-2.0); EOS % 6.7 % (0-4.5); HEMATOCRIT 24.6 % (35.4-49); HEMOGLOBIN 8.4 GM/dL (11.7-16.9); LYMPH % 24.1 % (8-40); MCHC 34.2 g/dl (32.0-35.9); MEAN CELL VOLUME 93.4 fl (80-96); MONO % 6.8 % (3.8-10.2); NEUT % 61.8 % (42.8-82.8); PLATELET COUNT 381 10^3/uL (134-434); RBC 2.63 M/mm3 (4.00-5.60); RDW 18.5 % (11.9-15.9); WHITE BLOOD COUNT 7.8 K/mm3 (4.0-10.0)
[2022-09-28 09:08] LABS: POTASSIUM 4.1 mmol/L (3.5-5.1)
[2022-09-28 09:12] LABS: CALCIUM 9.5 mg/dL (8.5-10.1)
[2022-09-28 09:13] LABS: BLOOD UREA NITROGEN 14.9 mg/dL (7-18); MAGNESIUM 1.8 mg/dL (1.8-2.4)
[2022-09-28 09:16] LABS: CREATININE 0.5 mg/dL (0.55-1.3)
[2022-09-28 09:17] LABS: BILIRUBIN,TOTAL 0.3 mg/dL (0.2-1); PHOSPHOROUS 3.5 mg/dL (2.5-4.9); TOT PROT 7.5 g/dl (6.4-8.2)
[2022-09-28] MEDS: MIDODRINE HCL 5 MG TABLET PEG SCH ×3 (10:47→17:30)
[2022-09-28] MEDS: POLYETHYLENE GLYCOL (HEALTHYLAX) 3350 17 GM PACKET GT SCH ×2 (10:47→21:20)
[2022-09-28] MEDS: levETIRAcetam 500 MG/5 ML ORAL SOLUTION (UNIT-DOSE CUPS) PEG SCH ×2 (10:47→21:19)
[2022-09-28] MEDS ORDERED: SCOPOLAMINE HYDROBROMIDE 1 PATCH PATCH.TD72 TD SCH (12:45)
[2022-09-28] MEDS: SENNOSIDES 8.8 MG/5 ML SYRUP PEG SCH (21:20)
[2022-09-29] MEDS: BACLOFEN 10 MG TABLET (FP) PEG SCH ×3 (05:13→21:52)
[2022-09-29] MEDS: MIDODRINE HCL 5 MG TABLET PEG SCH ×3 (10:31→17:56)
[2022-09-29] MEDS: levETIRAcetam 500 MG/5 ML ORAL SOLUTION (UNIT-DOSE CUPS) PEG SCH ×2 (10:31→21:52)
[2022-09-29] MEDS: POLYETHYLENE GLYCOL (HEALTHYLAX) 3350 17 GM PACKET GT SCH ×2 (10:31→21:52)
[2022-09-29] MEDS: ALBUTEROL SO4 2.5/IPRATROPIUM 0.5 INH SOL 3 ML VIAL.NEB. NEB SCH ×3 (11:40→20:40)
[2022-09-29] MEDS ORDERED: guaiFENesin/D-METHORPHAN HB 10 ML UNIT-DOSE CUPS PO SCH (12:15)
[2022-09-29] MEDS: SODIUM CHLORIDE NASAL SPRAY 44 ML BOTTLE NS SCH ×3 (14:15→23:15)
[2022-09-29] MEDS: SIMETHICONE 40 MG/0.6 ML BOTTLE GT SCH ×2 (14:15→21:54)
[2022-09-29] MEDS: guaiFENesin/D-METHORPHAN HB 10 ML UNIT-DOSE CUPS GT SCH ×2 (14:20→22:12)
[2022-09-29] MEDS: BUDESONIDE 0.5 MG/2 ML INH SUSP VIAL NEB SCH ×2 (15:41→20:40)
[2022-09-29] MEDS: SENNOSIDES 8.8 MG/5 ML SYRUP PEG SCH (21:54)
[2022-09-29] MEDS ORDERED: CHOLECALCIFEROL (VIT D SOLUTION) 400 UNIT/1 ML DROPS GT SCH (22:00)
[2022-09-30] MEDS: SODIUM CHLORIDE NASAL SPRAY 44 ML BOTTLE NS SCH ×2 (05:02→13:49)
[2022-09-30] MEDS: BACLOFEN 10 MG TABLET (FP) PEG SCH ×2 (05:02→13:48)
[2022-09-30] MEDS: guaiFENesin/D-METHORPHAN HB 10 ML UNIT-DOSE CUPS GT SCH ×2 (05:02→13:50)
[2022-09-30] MEDS: SIMETHICONE 40 MG/0.6 ML BOTTLE GT SCH ×2 (05:02→13:49)
[2022-09-30 06:45] VITALS: TEMP 97.8
[2022-09-30] MEDS: ALBUTEROL SO4 2.5/IPRATROPIUM 0.5 INH SOL 3 ML VIAL.NEB. NEB SCH ×2 (07:40→11:32)
[2022-09-30] MEDS: BUDESONIDE 0.5 MG/2 ML INH SUSP VIAL NEB SCH (07:40)
[2022-09-30 09:47] LABS: BASO % 0.6 % (0-2.0); EOS % 9.8 % (0-4.5); HEMATOCRIT 22.1 % (35.4-49); HEMOGLOBIN 7.4 GM/dL (11.7-16.9); LYMPH % 28.7 % (8-40); MCH 32.1 pg (25.7-33.7); MCHC 33.4 g/dl (32.0-35.9); MEAN PLT VOLUME 7.1 fl (7.5-11.1); MONO % 9.4 % (3.8-10.2); NEUT % 51.5 % (42.8-82.8); PLATELET COUNT 395 10^3/uL (134-434); RBC 2.31 M/mm3 (4.00-5.60); WHITE BLOOD COUNT 6.7 K/mm3 (4.0-10.0)
[2022-09-30 10:00] LABS: CALCIUM 9.3 mg/dL (8.5-10.1); MAGNESIUM 1.9 mg/dL (1.8-2.4)
[2022-09-30] MEDS ORDERED: ENOXAPARIN NA (PORCINE) 30 MG/0.3 ML DISP.SYRIN SQ SCH (10:00)
[2022-09-30 10:01] LABS: BLOOD UREA NITROGEN 21.2 mg/dL (7-18)
[2022-09-30 10:04] LABS: CREATININE 0.4 mg/dL (0.55-1.3); PHOSPHOROUS 4.3 mg/dL (2.5-4.9)
[2022-09-30] MEDS: levETIRAcetam 500 MG/5 ML ORAL SOLUTION (UNIT-DOSE CUPS) PEG SCH (10:25)
[2022-09-30] MEDS: POLYETHYLENE GLYCOL (HEALTHYLAX) 3350 17 GM PACKET GT SCH (10:25)
[2022-09-30] MEDS: MIDODRINE HCL 5 MG TABLET PEG SCH ×2 (10:26→13:47)
[2022-09-30 17:01] VITALS: BP 100/44; PULSE 52; RESP 16
== END 2022-09-30 15:15 | DRG 870 ==
LOC: JER 02:38 → JERBED 08:54 → JICU 13:55 → J5S 09-25 17:59
PROVIDERS: ADMIT Internal Medicine Pulmonary Disease; ATTEND Internal Medicine
PROC: 5A1955Z Respiratory Ventilation, Greater than 96 Consecutive Hours (ICD-10-PCS; principal; 2022-09-19)
PROC: 05HM33Z Insertion of Infusion Device into Right Internal Jugular Vein, Percutaneous Approach (ICD-10-PCS; 2022-09-19)
DX: A41.9 Sepsis, unspecified organism (principal); J15.1 Pneumonia due to Pseudomonas; J96.21 Acute and chronic respiratory failure with hypoxia; R53.2 Functional quadriplegia; R65.21 Severe sepsis with septic shock; J96.22 Acute and chronic respiratory failure with hypercapnia; N39.0 Urinary tract infection, site not specified; J44.0 Chronic obstructive pulmonary disease with (acute) lower respiratory infection; K56.7 Ileus, unspecified; E87.0 Hyperosmolality and hypernatremia; J98.11 Atelectasis; F73 Profound intellectual disabilities; G80.9 Cerebral palsy, unspecified; Q02 Microcephaly; Z93.0 Tracheostomy status; Z74.01 Bed confinement status; E87.6 Hypokalemia
CPT/HCPCS: 0241U-QW; 36415; 71045-TC-FY; 80048; 80053; 81003; 82272; 82803; 82962; 83540; 83550; 83605; 83735; 84100; 85025; 87040; 87070; 87086; 87186; 87205; 87635; 93005; 93010; 94002; 94640; 99285-25; J0475; J3480

== ENCOUNTER 2022-12-13 10:01 | Inpatient (IN) | payer OTHER ==
[2022-12-13] MEDS ORDERED: ALBUTEROL SO4 2.5/IPRATROPIUM 0.5 INH SOL 3 ML VIAL.NEB. NEB ONE ×2 (10:41→10:42)
[2022-12-13 11:19] LABS: VENOUS O2 SATURATION 99.5 % (70-80); VENOUS PCO2 52.5 mmHg (38-52); VENOUS PH 7.454 (7.310-7.410)
[2022-12-13] MEDS ORDERED: PIPERACILLIN/TAZOBACTAM 4.5 GM VIAL IVPB ONE (11:20)
[2022-12-13 11:22] LABS: VENOUS BASE EXCESS 10.5 mmol/L (-2-2)
[2022-12-13 11:30] VITALS: BMI 25.3
[2022-12-13] MEDS ORDERED: PIPERACILLIN/TAZOB 4.5 GM 4.5 GM/100 ML BAG IVPB ONE (11:43)
[2022-12-13 11:47] LABS: BASO % 0.3 % (0-2.0); HEMATOCRIT 30.8 % (35.4-49); HEMOGLOBIN 10.5 GM/dL (11.7-16.9); LYMPH % 21.1 % (8-40); MCH 31.9 pg (25.7-33.7); MEAN PLT VOLUME 10.4 fl (7.5-11.1); MONO % 12.7 % (3.8-10.2); NEUT % 63.9 % (42.8-82.8); PLATELET COUNT 148 10^3/uL (134-434); RBC 3.28 M/mm3 (4.00-5.60); RDW 17.1 % (11.9-15.9); WHITE BLOOD COUNT 5.9 K/mm3 (4.0-10.0)
[2022-12-13 11:51] LABS: INR 1.12 (0.83-1.09)
[2022-12-13 11:54] LABS: ACTIVATED PTT 47.4 SECONDS (25.2-36.5)
[2022-12-13 12:20] LABS: CALCIUM 9.8 mg/dL (8.5-10.1)
[2022-12-13 12:22] LABS: ALBUMIN 3.2 g/dl (3.4-5.0); BLOOD UREA NITROGEN 24.4 mg/dL (7-18)
[2022-12-13 12:25] LABS: BILIRUBIN,TOTAL 0.2 mg/dL (0.2-1); CREATININE 0.6 mg/dL (0.55-1.3)
[2022-12-13 14:37] LABS: EPI CELLS 1 /uL (0-25.1); HYALINE CASTS 0 /uL (0-3.1); PH,URINE 8.5 (5.0-8.0); URINE APPEARANCE CLOUDY; URINE BILIRUBIN NEGATIVE (NEGATIVE); URINE COLOR YELLOW; URINE GLUCOSE (UA) NEGATIVE (NEGATIVE); URINE KETONE NEGATIVE (NEGATIVE); URINE LEUK ESTERASE 3+ (NEGATIVE); URINE NITRITE POSITIVE (NEGATIVE); URINE PROTEIN TRACE (NEGATIVE); URINE RBC 25 /uL (0-23.9); URINE UROBILINOGEN 0.2 mg/dL (0.2-1.0); URINE WBC 182 /uL (0-25.8)
[2022-12-13 14:54] LABS: URINE BACTERIA 717.5 /uL (0-1359); YEAST NEGATIVE (NEGATIVE)
[2022-12-13] MEDS ORDERED: ACETAMINOPHEN 160 MG/5 ML *Children Solution GT PRN (23:25)
[2022-12-14] MEDS: PIPERACILLIN/TAZOB 4.5 GM 4.5 GM in DEXTROSE 5%-WATER 100 ML IVPB SCH ×4 (03:52→21:57)
[2022-12-14] MEDS: BACLOFEN 10 MG TABLET (FP) GT SCH ×3 (06:22→22:01)
[2022-12-14 08:20] LABS: BASO % 0.5 % (0-2.0); EOS % 5.2 % (0-4.5); HEMATOCRIT 30.2 % (35.4-49); HEMOGLOBIN 10.2 GM/dL (11.7-16.9); LYMPH % 25.2 % (8-40); MCH 31.7 pg (25.7-33.7); MCHC 33.8 g/dl (32.0-35.9); MEAN CELL VOLUME 93.8 fl (80-96); MEAN PLT VOLUME 9.6 fl (7.5-11.1); MONO % 12.8 % (3.8-10.2); NEUT % 56.3 % (42.8-82.8); PLATELET COUNT 144 10^3/uL (134-434); RBC 3.22 M/mm3 (4.00-5.60); RDW 16.8 % (11.9-15.9)
[2022-12-14] MEDS: BUDESONIDE 0.25 MG/2ML INH SUSP VIAL NEB SCH ×2 (08:40→20:05)
[2022-12-14] MEDS: ALBUTEROL SO4 2.5/IPRATROPIUM 0.5 INH SOL 3 ML VIAL.NEB. NEB SCH ×4 (08:46→20:05)
[2022-12-14 08:50] LABS: POTASSIUM 3.5 mmol/L (3.5-5.1)
[2022-12-14 08:53] LABS: ALBUMIN 3.1 g/dl (3.4-5.0); BLOOD UREA NITROGEN 24.5 mg/dL (7-18); CALCIUM 9.4 mg/dL (8.5-10.1)
[2022-12-14 08:56] LABS: CREATININE 0.7 mg/dL (0.55-1.3)
[2022-12-14 08:59] LABS: BILIRUBIN,TOTAL 0.6 mg/dL (0.2-1)
[2022-12-14] MEDS: levETIRAcetam 500 MG/5 ML ORAL SOLUTION (UNIT-DOSE CUPS) PEG SCH ×2 (09:39→21:58)
[2022-12-14] MEDS: HEPARIN NA (PORCINE) 5,000 UNITS/ML 1ML VIAL SQ SCH ×2 (09:39→21:58)
[2022-12-14] MEDS: MIDODRINE HCL 5 MG TABLET GT SCH ×3 (09:40→19:00)
[2022-12-14] MEDS: POLYETHYLENE GLYCOL (HEALTHYLAX) 3350 17 GM PACKET GT SCH ×2 (11:56→21:58)
[2022-12-14] MEDS: SCOPOLAMINE HYDROBROMIDE 1 PATCH PATCH.TD72 TD SCH (17:25)
[2022-12-14] MEDS: NYSTATIN POWDER 100,000 UNITS/GM - 15 GM TOPICAL POWDER TP SCH (19:06)
[2022-12-14] MEDS: BISACODYL 10 MG SUPP.RECT RC SCH (22:00)
[2022-12-15] MEDS: PIPERACILLIN/TAZOB 3.375 GM 3.375 GM in DEXTROSE 5%-WATER - 50 ML IVPB SCH ×3 (02:45→17:50)
[2022-12-15] MEDS: BACLOFEN 10 MG TABLET (FP) GT SCH ×3 (05:31→21:53)
[2022-12-15] MEDS: BUDESONIDE 0.25 MG/2ML INH SUSP VIAL NEB SCH ×2 (08:08→19:57)
[2022-12-15] MEDS ORDERED: ACETAMINOPHEN 650 MG/20.3 ML ORAL SOLUTION (CUPS) GT PRN (08:41)
[2022-12-15] MEDS: ALBUTEROL SO4 2.5/IPRATROPIUM 0.5 INH SOL 3 ML VIAL.NEB. NEB SCH ×4 (08:50→19:56)
[2022-12-15] MEDS: POLYETHYLENE GLYCOL (HEALTHYLAX) 3350 17 GM PACKET GT SCH ×2 (10:22→21:35)
[2022-12-15] MEDS: HEPARIN NA (PORCINE) 5,000 UNITS/ML 1ML VIAL SQ SCH ×2 (10:22→21:35)
[2022-12-15] MEDS: MIDODRINE HCL 5 MG TABLET GT SCH ×3 (10:22→17:50)
[2022-12-15] MEDS: levETIRAcetam 500 MG/5 ML ORAL SOLUTION (UNIT-DOSE CUPS) PEG SCH ×2 (10:22→21:35)
[2022-12-15] MEDS: NYSTATIN POWDER 100,000 UNITS/GM - 15 GM TOPICAL POWDER TP SCH (10:23)
[2022-12-15 14:28] LABS: BILIRUBIN,DIRECT 0.1 mg/dL (0.0-0.2)
[2022-12-15 14:31] LABS: BILIRUBIN,TOTAL 0.4 mg/dL (0.2-1)
[2022-12-15] MEDS: PIPERACILLIN/TAZOB 4.5 GM 4.5 GM in DEXTROSE 5%-WATER 100 ML IVPB SCH ×2 (15:21→15:22)
[2022-12-15] MEDS: BISACODYL 10 MG SUPP.RECT RC SCH (21:35)
[2022-12-16] MEDS: PIPERACILLIN/TAZOB 3.375 GM 3.375 GM in DEXTROSE 5%-WATER - 50 ML IVPB SCH ×3 (01:55→17:30)
[2022-12-16] MEDS: BACLOFEN 10 MG TABLET (FP) GT SCH ×3 (05:57→22:36)
[2022-12-16] MEDS: BUDESONIDE 0.25 MG/2ML INH SUSP VIAL NEB SCH ×2 (07:35→19:30)
[2022-12-16] MEDS: ALBUTEROL SO4 2.5/IPRATROPIUM 0.5 INH SOL 3 ML VIAL.NEB. NEB SCH ×4 (07:35→19:30)
[2022-12-16] MEDS: MULTIVIT-MINERALS ORAL LIQUID PO SCH (09:18)
[2022-12-16] MEDS: levETIRAcetam 500 MG/5 ML ORAL SOLUTION (UNIT-DOSE CUPS) PEG SCH ×2 (09:18→22:36)
[2022-12-16] MEDS: MIDODRINE HCL 5 MG TABLET GT SCH ×3 (09:18→17:31)
[2022-12-16] MEDS: POLYETHYLENE GLYCOL (HEALTHYLAX) 3350 17 GM PACKET GT SCH ×2 (09:19→22:36)
[2022-12-16] MEDS: HEPARIN NA (PORCINE) 5,000 UNITS/ML 1ML VIAL SQ SCH ×2 (09:19→22:37)
[2022-12-16] MEDS: NYSTATIN POWDER 100,000 UNITS/GM - 15 GM TOPICAL POWDER TP SCH (09:19)
[2022-12-16 11:32] LABS: BASO % 0.4 % (0-2.0); EOS % 4.9 % (0-4.5); HEMATOCRIT 29.8 % (35.4-49); HEMOGLOBIN 9.7 GM/dL (11.7-16.9); LYMPH % 27.7 % (8-40); MCH 31.3 pg (25.7-33.7); MCHC 32.7 g/dl (32.0-35.9); MEAN CELL VOLUME 95.6 fl (80-96); MEAN PLT VOLUME 9.8 fl (7.5-11.1); MONO % 15.1 % (3.8-10.2); NEUT % 51.9 % (42.8-82.8); PLATELET COUNT 165 10^3/uL (134-434); RBC 3.12 M/mm3 (4.00-5.60); RDW 16.2 % (11.9-15.9); WHITE BLOOD COUNT 6.1 K/mm3 (4.0-10.0)
[2022-12-16 11:58] LABS: CALCIUM 9.6 mg/dL (8.5-10.1)
[2022-12-16 11:59] LABS: BLOOD UREA NITROGEN 20.6 mg/dL (7-18)
[2022-12-16 12:01] LABS: CREATININE 0.8 mg/dL (0.55-1.3)
[2022-12-16 12:02] LABS: BILIRUBIN,TOTAL 0.3 mg/dL (0.2-1); TOT PROT 8.1 g/dl (6.4-8.2)
[2022-12-16] MEDS: BISACODYL 10 MG SUPP.RECT RC SCH (22:36)
[2022-12-17] MEDS: PIPERACILLIN/TAZOB 3.375 GM 3.375 GM in DEXTROSE 5%-WATER - 50 ML IVPB SCH ×3 (02:25→17:32)
[2022-12-17] MEDS: BACLOFEN 10 MG TABLET (FP) GT SCH ×3 (06:45→22:07)
[2022-12-17] MEDS: ALBUTEROL SO4 2.5/IPRATROPIUM 0.5 INH SOL 3 ML VIAL.NEB. NEB SCH ×4 (07:31→20:30)
[2022-12-17] MEDS: BUDESONIDE 0.25 MG/2ML INH SUSP VIAL NEB SCH ×2 (07:39→20:30)
[2022-12-17] MEDS: POLYETHYLENE GLYCOL (HEALTHYLAX) 3350 17 GM PACKET GT SCH ×2 (09:59→22:06)
[2022-12-17] MEDS: POTASSIUM CHLORIDE ORAL LIQUID 20 MEQ/15 ML GT SCH ×3 (09:59→23:53)
[2022-12-17] MEDS: levETIRAcetam 500 MG/5 ML ORAL SOLUTION (UNIT-DOSE CUPS) PEG SCH ×3 (10:00→23:53)
[2022-12-17] MEDS: MIDODRINE HCL 5 MG TABLET GT SCH ×3 (10:00→17:32)
[2022-12-17] MEDS: HEPARIN NA (PORCINE) 5,000 UNITS/ML 1ML VIAL SQ SCH ×2 (10:00→22:07)
[2022-12-17] MEDS: MULTIVIT-MINERALS ORAL LIQUID PO SCH (10:00)
[2022-12-17] MEDS: NYSTATIN POWDER 100,000 UNITS/GM - 15 GM TOPICAL POWDER TP SCH (10:01)
[2022-12-17] MEDS ORDERED: PIPERACILLIN/TAZOBACTAM 3.375 GM VIAL IVPB ONE (10:19)
[2022-12-17] MEDS: SCOPOLAMINE HYDROBROMIDE 1 PATCH PATCH.TD72 TD SCH (17:32)
[2022-12-17] MEDS: BISACODYL 10 MG SUPP.RECT RC SCH (22:07)
[2022-12-18] MEDS ORDERED: levETIRAcetam 500 MG/5 ML INJECTION VIAL IVPB ONE ×2 (00:15→11:00)
[2022-12-18] MEDS: KCL 10 MEQ IVPB 10 MEQ/100 ML INFUS.BAG IVPB SCH ×3 (00:18→02:46)
[2022-12-18] MEDS: PIPERACILLIN/TAZOB 3.375 GM 3.375 GM in DEXTROSE 5%-WATER - 50 ML IVPB SCH ×3 (03:58→17:30)
[2022-12-18] MEDS: TUBE FEED DECLOGGING SOLUTION 12,000 UNITS GT ONE ×2 (07:28→08:15)
[2022-12-18] MEDS: BACLOFEN 10 MG TABLET (FP) GT SCH ×3 (07:29→22:50)
[2022-12-18 07:38] LABS: BASO % 0.5 % (0-2.0); EOS % 6.8 % (0-4.5); HEMATOCRIT 28.1 % (35.4-49); HEMOGLOBIN 9.4 GM/dL (11.7-16.9); LYMPH % 38.5 % (8-40); MCH 31.9 pg (25.7-33.7); MCHC 33.3 g/dl (32.0-35.9); MEAN CELL VOLUME 95.7 fl (80-96); MEAN PLT VOLUME 9.5 fl (7.5-11.1); MONO % 9.7 % (3.8-10.2); NEUT % 44.5 % (42.8-82.8); PLATELET COUNT 172 10^3/uL (134-434); RBC 2.93 M/mm3 (4.00-5.60); WHITE BLOOD COUNT 5.2 K/mm3 (4.0-10.0)
[2022-12-18] MEDS: BUDESONIDE 0.25 MG/2ML INH SUSP VIAL NEB SCH ×2 (07:54→20:32)
[2022-12-18] MEDS: ALBUTEROL SO4 2.5/IPRATROPIUM 0.5 INH SOL 3 ML VIAL.NEB. NEB SCH ×4 (07:55→20:32)
[2022-12-18 08:31] LABS: ALBUMIN 2.9 g/dl (3.4-5.0); BILIRUBIN,TOTAL 0.4 mg/dL (0.2-1); BLOOD UREA NITROGEN 17.7 mg/dL (7-18); CALCIUM 8.9 mg/dL (8.5-10.1); CREATININE 0.7 mg/dL (0.55-1.3); MAGNESIUM 2.2 mg/dL (1.8-2.4); POTASSIUM 3.6 mmol/L (3.5-5.1); TOT PROT 7.5 g/dl (6.4-8.2)
[2022-12-18] MEDS: HEPARIN NA (PORCINE) 5,000 UNITS/ML 1ML VIAL SQ SCH ×2 (10:27→22:50)
[2022-12-18] MEDS: MIDODRINE HCL 5 MG TABLET GT SCH ×4 (10:41→18:21)
[2022-12-18] MEDS: POTASSIUM CHLORIDE ORAL LIQUID 20 MEQ/15 ML GT SCH ×2 (10:41→22:49)
[2022-12-18] MEDS: POLYETHYLENE GLYCOL (HEALTHYLAX) 3350 17 GM PACKET GT SCH ×2 (11:29→22:50)
[2022-12-18] MEDS: levETIRAcetam 500 MG/5 ML ORAL SOLUTION (UNIT-DOSE CUPS) PEG SCH ×2 (11:29→22:49)
[2022-12-18] MEDS: MULTIVIT-MINERALS ORAL LIQUID PO SCH (11:29)
[2022-12-18] MEDS: NYSTATIN POWDER 100,000 UNITS/GM - 15 GM TOPICAL POWDER TP SCH (11:30)
[2022-12-18] MEDS: BISACODYL 10 MG SUPP.RECT RC SCH (22:50)
[2022-12-19] MEDS: PIPERACILLIN/TAZOB 3.375 GM 3.375 GM in DEXTROSE 5%-WATER - 50 ML IVPB SCH ×3 (01:13→17:19)
[2022-12-19] MEDS: BACLOFEN 10 MG TABLET (FP) GT SCH ×3 (05:31→22:42)
[2022-12-19 08:17] LABS: BASO % 0.7 % (0-2.0); EOS % 8.1 % (0-4.5); HEMATOCRIT 28.7 % (35.4-49); HEMOGLOBIN 9.6 GM/dL (11.7-16.9); LYMPH % 36.2 % (8-40); MCH 32.2 pg (25.7-33.7); MCHC 33.4 g/dl (32.0-35.9); MEAN CELL VOLUME 96.4 fl (80-96); MEAN PLT VOLUME 9.7 fl (7.5-11.1); PLATELET COUNT 172 10^3/uL (134-434); RBC 2.98 M/mm3 (4.00-5.60); RDW 16.6 % (11.9-15.9); WHITE BLOOD COUNT 4.1 K/mm3 (4.0-10.0)
[2022-12-19 08:51] LABS: ALBUMIN 2.9 g/dl (3.4-5.0); BILIRUBIN,TOTAL 0.3 mg/dL (0.2-1); CALCIUM 9.3 mg/dL (8.5-10.1); CREATININE 0.8 mg/dL (0.55-1.3); MAGNESIUM 2.2 mg/dL (1.8-2.4); POTASSIUM 3.7 mmol/L (3.5-5.1); TOT PROT 7.7 g/dl (6.4-8.2)
[2022-12-19] MEDS: ALBUTEROL SO4 2.5/IPRATROPIUM 0.5 INH SOL 3 ML VIAL.NEB. NEB SCH ×4 (09:15→20:21)
[2022-12-19] MEDS: BUDESONIDE 0.25 MG/2ML INH SUSP VIAL NEB SCH ×2 (09:15→20:24)
[2022-12-19] MEDS: levETIRAcetam 500 MG/5 ML ORAL SOLUTION (UNIT-DOSE CUPS) PEG SCH ×2 (10:01→22:43)
[2022-12-19] MEDS: POLYETHYLENE GLYCOL (HEALTHYLAX) 3350 17 GM PACKET GT SCH ×2 (10:01→22:42)
[2022-12-19] MEDS: HEPARIN NA (PORCINE) 5,000 UNITS/ML 1ML VIAL SQ SCH ×2 (10:02→22:42)
[2022-12-19] MEDS: MIDODRINE HCL 5 MG TABLET GT SCH ×3 (10:02→17:19)
[2022-12-19] MEDS: MULTIVIT-MINERALS ORAL LIQUID PO SCH (10:02)
[2022-12-19] MEDS: NYSTATIN POWDER 100,000 UNITS/GM - 15 GM TOPICAL POWDER TP SCH (10:03)
[2022-12-19] MEDS: POTASSIUM CHLORIDE ORAL LIQUID 20 MEQ/15 ML GT SCH ×2 (10:05→22:42)
[2022-12-19] MEDS: BISACODYL 10 MG SUPP.RECT RC SCH (22:43)
[2022-12-20] MEDS: PIPERACILLIN/TAZOB 3.375 GM 3.375 GM in DEXTROSE 5%-WATER - 50 ML IVPB SCH ×3 (01:43→17:26)
[2022-12-20] MEDS: BACLOFEN 10 MG TABLET (FP) GT SCH ×3 (05:36→21:52)
[2022-12-20] MEDS: ALBUTEROL SO4 2.5/IPRATROPIUM 0.5 INH SOL 3 ML VIAL.NEB. NEB SCH ×4 (07:45→20:36)
[2022-12-20] MEDS: BUDESONIDE 0.25 MG/2ML INH SUSP VIAL NEB SCH ×2 (07:45→20:36)
[2022-12-20 07:52] LABS: BASO % 0.3 % (0-2.0); EOS % 3.7 % (0-4.5); HEMATOCRIT 26.7 % (35.4-49); HEMOGLOBIN 9.1 GM/dL (11.7-16.9); LYMPH % 18.6 % (8-40); MCH 32.4 pg (25.7-33.7); MCHC 34.1 g/dl (32.0-35.9); MEAN CELL VOLUME 95.1 fl (80-96); MEAN PLT VOLUME 9.6 fl (7.5-11.1); MONO % 4.4 % (3.8-10.2); PLATELET COUNT 198 10^3/uL (134-434); RBC 2.81 M/mm3 (4.00-5.60); RDW 15.9 % (11.9-15.9); WHITE BLOOD COUNT 7.7 K/mm3 (4.0-10.0)
[2022-12-20 08:00] LABS: POTASSIUM 3.8 mmol/L (3.5-5.1)
[2022-12-20 08:02] LABS: CALCIUM 8.8 mg/dL (8.5-10.1)
[2022-12-20 08:03] LABS: ALBUMIN 2.9 g/dl (3.4-5.0); BLOOD UREA NITROGEN 16.7 mg/dL (7-18); MAGNESIUM 1.9 mg/dL (1.8-2.4)
[2022-12-20 08:05] LABS: CREATININE 0.7 mg/dL (0.55-1.3)
[2022-12-20 08:07] LABS: BILIRUBIN,TOTAL 0.3 mg/dL (0.2-1); TOT PROT 7.7 g/dl (6.4-8.2)
[2022-12-20] MEDS: POTASSIUM CHLORIDE ORAL LIQUID 20 MEQ/15 ML GT SCH ×2 (09:46→21:52)
[2022-12-20] MEDS: MULTIVIT-MINERALS ORAL LIQUID PO SCH (09:46)
[2022-12-20] MEDS: MIDODRINE HCL 5 MG TABLET GT SCH ×3 (09:46→17:26)
[2022-12-20] MEDS: POLYETHYLENE GLYCOL (HEALTHYLAX) 3350 17 GM PACKET GT SCH (09:47)
[2022-12-20] MEDS: HEPARIN NA (PORCINE) 5,000 UNITS/ML 1ML VIAL SQ SCH ×2 (10:44→21:53)
[2022-12-20] MEDS: NYSTATIN POWDER 100,000 UNITS/GM - 15 GM TOPICAL POWDER TP SCH (10:45)
[2022-12-20] MEDS: levETIRAcetam 500 MG/5 ML ORAL SOLUTION (UNIT-DOSE CUPS) PEG SCH ×3 (11:24→21:52)
[2022-12-20] MEDS ORDERED: levETIRAcetam 500 MG/5 ML INJECTION VIAL IVPB ONE (11:41)
[2022-12-20] MEDS ORDERED: TUBE FEED DECLOGGING SOLUTION 12,000 UNITS GT ONE (12:00)
[2022-12-20] MEDS: SCOPOLAMINE HYDROBROMIDE 1 PATCH PATCH.TD72 TD SCH (17:26)
[2022-12-20] MEDS: BISACODYL 10 MG SUPP.RECT RC SCH (21:52)
[2022-12-21] MEDS: PIPERACILLIN/TAZOB 3.375 GM 3.375 GM in DEXTROSE 5%-WATER - 50 ML IVPB SCH ×2 (03:33→10:32)
[2022-12-21] MEDS: BACLOFEN 10 MG TABLET (FP) GT SCH ×3 (05:50→22:11)
[2022-12-21] MEDS: ALBUTEROL SO4 2.5/IPRATROPIUM 0.5 INH SOL 3 ML VIAL.NEB. NEB SCH ×2 (07:51→11:10)
[2022-12-21] MEDS: BUDESONIDE 0.25 MG/2ML INH SUSP VIAL NEB SCH ×2 (07:51→19:48)
[2022-12-21 09:10] LABS: BASO % 0.2 % (0-2.0); EOS % 1.8 % (0-4.5); HEMATOCRIT 28.6 % (35.4-49); HEMOGLOBIN 9.5 GM/dL (11.7-16.9); LYMPH % 17.5 % (8-40); MCH 31.7 pg (25.7-33.7); MCHC 33.3 g/dl (32.0-35.9); MEAN CELL VOLUME 95.2 fl (80-96); MEAN PLT VOLUME 9.4 fl (7.5-11.1); MONO % 3.2 % (3.8-10.2); NEUT % 77.3 % (42.8-82.8); PLATELET COUNT 232 10^3/uL (134-434); RBC 3.01 M/mm3 (4.00-5.60); WHITE BLOOD COUNT 9.8 K/mm3 (4.0-10.0)
[2022-12-21 09:28] LABS: POTASSIUM 3.8 mmol/L (3.5-5.1)
[2022-12-21 09:32] LABS: CALCIUM 9.3 mg/dL (8.5-10.1)
[2022-12-21 09:33] LABS: ALBUMIN 2.9 g/dl (3.4-5.0); BLOOD UREA NITROGEN 12.8 mg/dL (7-18); MAGNESIUM 2.1 mg/dL (1.8-2.4)
[2022-12-21 09:36] LABS: CREATININE 0.6 mg/dL (0.55-1.3)
[2022-12-21 09:37] LABS: TOT PROT 7.9 g/dl (6.4-8.2)
[2022-12-21 09:38] LABS: BILIRUBIN,TOTAL 0.3 mg/dL (0.2-1)
[2022-12-21] MEDS: MULTIVIT-MINERALS ORAL LIQUID PO SCH (10:33)
[2022-12-21] MEDS: POTASSIUM CHLORIDE ORAL LIQUID 20 MEQ/15 ML GT SCH ×2 (10:33→22:12)
[2022-12-21] MEDS: HEPARIN NA (PORCINE) 5,000 UNITS/ML 1ML VIAL SQ SCH ×2 (10:33→22:11)
[2022-12-21] MEDS: NYSTATIN POWDER 100,000 UNITS/GM - 15 GM TOPICAL POWDER TP SCH (10:34)
[2022-12-21] MEDS: MIDODRINE HCL 5 MG TABLET GT SCH ×3 (10:34→17:59)
[2022-12-21] MEDS: levETIRAcetam 500 MG/5 ML ORAL SOLUTION (UNIT-DOSE CUPS) PEG SCH ×2 (12:16→22:10)
[2022-12-21] MEDS: BISACODYL 10 MG SUPP.RECT RC SCH (22:11)
[2022-12-22] MEDS: BACLOFEN 10 MG TABLET (FP) GT SCH ×2 (05:57→14:32)
[2022-12-22] MEDS: BUDESONIDE 0.25 MG/2ML INH SUSP VIAL NEB SCH (08:04)
[2022-12-22 09:05] LABS: BASO % 0.3 % (0-2.0); EOS % 1.3 % (0-4.5); HEMOGLOBIN 9.2 GM/dL (11.7-16.9); LYMPH % 25.2 % (8-40); MCH 31.4 pg (25.7-33.7); MCHC 32.7 g/dl (32.0-35.9); MEAN PLT VOLUME 9.4 fl (7.5-11.1); MONO % 4.8 % (3.8-10.2); NEUT % 68.4 % (42.8-82.8); PLATELET COUNT 259 10^3/uL (134-434); RBC 2.92 M/mm3 (4.00-5.60); RDW 16.4 % (11.9-15.9); WHITE BLOOD COUNT 8.2 K/mm3 (4.0-10.0)
[2022-12-22 09:18] LABS: POTASSIUM 4.1 mmol/L (3.5-5.1)
[2022-12-22 09:28] LABS: CALCIUM 9.2 mg/dL (8.5-10.1)
[2022-12-22 09:29] LABS: BLOOD UREA NITROGEN 13.6 mg/dL (7-18); MAGNESIUM 2.1 mg/dL (1.8-2.4)
[2022-12-22 09:32] LABS: CREATININE 0.6 mg/dL (0.55-1.3)
[2022-12-22 09:34] LABS: BILIRUBIN,TOTAL 0.3 mg/dL (0.2-1); TOT PROT 7.8 g/dl (6.4-8.2)
[2022-12-22] MEDS: MULTIVIT-MINERALS ORAL LIQUID PO SCH (09:59)
[2022-12-22] MEDS: HEPARIN NA (PORCINE) 5,000 UNITS/ML 1ML VIAL SQ SCH (09:59)
[2022-12-22] MEDS: levETIRAcetam 500 MG/5 ML ORAL SOLUTION (UNIT-DOSE CUPS) PEG SCH (09:59)
[2022-12-22] MEDS: POTASSIUM CHLORIDE ORAL LIQUID 20 MEQ/15 ML GT SCH (09:59)
[2022-12-22] MEDS: NYSTATIN POWDER 100,000 UNITS/GM - 15 GM TOPICAL POWDER TP SCH (10:00)
[2022-12-22] MEDS: MIDODRINE HCL 5 MG TABLET GT SCH ×3 (10:00→17:02)
[2022-12-22 14:13] VITALS: BP 124/69; PULSE 61; RESP 20; TEMP 98.5
== END 2022-12-22 17:50 | DRG 193 ==
LOC: JER 10:01 → JERBED 12:07 → J7W 21:05
PROVIDERS: ADMIT Internal Medicine; ATTEND Nurse Practitioner Acute Care
DX: J18.9 Pneumonia, unspecified organism (principal); J96.21 Acute and chronic respiratory failure with hypoxia; R53.2 Functional quadriplegia; B49 Unspecified mycosis; N39.0 Urinary tract infection, site not specified; F73 Profound intellectual disabilities; G40.909 Epilepsy, unspecified, not intractable, without status epilepticus; I95.9 Hypotension, unspecified; G80.9 Cerebral palsy, unspecified; D64.9 Anemia, unspecified; R94.5 Abnormal results of liver function studies; Q02 Microcephaly; Z93.0 Tracheostomy status; M24.50 Contracture, unspecified joint; Z93.1 Gastrostomy status
CPT/HCPCS: 0241U-QW; 36415; 71045-TC-FY; 76705-TC; 80053; 80076; 81003; 82803; 82977; 83735; 84484; 85025; 85610; 85730; 87040; 87086; 87186; 87635; 87899; 93005; 93010; 94640; 99285-25; J0475; J1644

== ENCOUNTER 2023-01-18 02:30 | Inpatient (IN) | payer OTHER ==
[2023-01-18] MEDS ORDERED: SODIUM CHLORIDE 1,225 ML IV ONE (02:36)
[2023-01-18] MEDS ORDERED: MAGNESIUM SULF 50% (8.12 MEQ/2 ML-1 GM VIAL) IVPB ONE (02:59)
[2023-01-18] MEDS: ALBUTEROL SO4 2.5/IPRATROPIUM 0.5 INH SOL 3 ML VIAL.NEB. NEB SCH ×4 (03:00→20:40)
[2023-01-18 03:08] LABS: VENOUS BASE EXCESS 9.3 mmol/L (-2-2); VENOUS O2 SATURATION 56.7 % (70-80); VENOUS PH 7.222 (7.310-7.410)
[2023-01-18 03:09] LABS: VENOUS PCO2 100.5 mmHg (38-52)
[2023-01-18 03:13] LABS: BASO % 0.5 % (0-2.0); EOS % 14.1 % (0-4.5); HEMATOCRIT 30.7 % (35.4-49); HEMOGLOBIN 10.5 GM/dL (11.7-16.9); LYMPH % 22.4 % (8-40); MCH 32.5 pg (25.7-33.7); MCHC 34.3 g/dl (32.0-35.9); MEAN CELL VOLUME 94.9 fl (80-96); MEAN PLT VOLUME 8.2 fl (7.5-11.1); MONO % 7.8 % (3.8-10.2); NEUT % 55.2 % (42.8-82.8); PLATELET COUNT 338 10^3/uL (134-434); RBC 3.23 M/mm3 (4.00-5.60); RDW 15.9 % (11.9-15.9); WHITE BLOOD COUNT 6.2 K/mm3 (4.0-10.0)
[2023-01-18 03:20] LABS: INR 1.03 (0.83-1.09)
[2023-01-18 03:23] LABS: ACTIVATED PTT 40.3 SECONDS (25.2-36.5)
[2023-01-18 03:29] LABS: POTASSIUM 5.8 mmol/L (3.5-5.1)
[2023-01-18 03:31] LABS: CALCIUM 8.7 mg/dL (8.5-10.1)
[2023-01-18 03:32] LABS: ALBUMIN 3.2 g/dl (3.4-5.0); BLOOD UREA NITROGEN 11.7 mg/dL (7-18)
[2023-01-18 03:35] LABS: CREATININE 0.5 mg/dL (0.55-1.3)
[2023-01-18 03:37] LABS: BILIRUBIN,TOTAL 0.2 mg/dL (0.2-1); TOT PROT 8.6 g/dl (6.4-8.2)
[2023-01-18 03:40] LABS: N-TERMINAL BNP 59.5 pg/ml (5-125)
[2023-01-18 04:01] LABS: LACTIC ACID 4.4 mmol/L (0.4-2.0)
[2023-01-18] MEDS ORDERED: SODIUM CHLORIDE 0.9% 500 ML INFUS.BAG IV ONE (04:25)
[2023-01-18 06:02] LABS: ARTERIAL BLD GAS O2 SATURATION 99.4 % (95-98); ARTERIAL BLOOD GAS BASE EXCESS 5.6 mmol/L (-2-2); ARTERIAL BLOOD GAS PO2 220.6 mmHg (80-100); ARTERIAL BLOOD GAS pH 7.368 (7.350-7.450)
[2023-01-18 06:04] LABS: ALLENS TEST POSITIVE
[2023-01-18] MEDS ORDERED: PIPERACILLIN/TAZOB 4.5 GM 4.5 GM in DEXTROSE 5%-WATER 100 ML IVPB ONE (06:17)
[2023-01-18] MEDS ORDERED: AZITHROMYCIN IVPB 500 MG in DEXTROSE 5%-WATER - 250 ML IVPB ONE (06:17)
[2023-01-18] MEDS ORDERED: VANCOMYCIN 1,000 MG in DEXTROSE 5%-WATER - 250 ML IVPB ONE (06:17)
[2023-01-18 06:47] LABS: EPI CELLS 4 /uL (0-25.1); HYALINE CASTS 5 /uL (0-3.1); URINE APPEARANCE CLEAR; URINE BACTERIA 380 /uL (0-1359); URINE BILIRUBIN NEGATIVE (NEGATIVE); URINE COLOR YELLOW; URINE GLUCOSE (UA) NEGATIVE (NEGATIVE); URINE KETONE NEGATIVE (NEGATIVE); URINE LEUK ESTERASE 1+ (NEGATIVE); URINE NITRITE NEGATIVE (NEGATIVE); URINE PROTEIN 2+ (NEGATIVE); URINE RBC 321 /uL (0-23.9); URINE UROBILINOGEN 0.2 mg/dL (0.2-1.0); URINE WBC 160 /uL (0-25.8)
[2023-01-18] MEDS ORDERED: VANCOMYCIN 1 GRAM (PRE-DOCKED) 1,000 MG/250 ML BAG IVPB ONE (06:49)
[2023-01-18] MEDS ORDERED: PIPERACILLIN/TAZOB 4.5 GM 4.5 GM/100 ML BAG IVPB ONE (06:49)
[2023-01-18] MEDS ORDERED: AZITHROMYCIN IVPB 500 MG/250 ML BAG IVPB ONE (06:49)
[2023-01-18 07:06] LABS: POTASSIUM 4.4 mmol/L (3.5-5.1)
[2023-01-18 07:08] LABS: ALBUMIN 3.1 g/dl (3.4-5.0); BLOOD UREA NITROGEN 11.9 mg/dL (7-18); CALCIUM 8.1 mg/dL (8.5-10.1)
[2023-01-18 07:11] LABS: CREATININE 0.3 mg/dL (0.55-1.3)
[2023-01-18 07:12] LABS: BILIRUBIN,TOTAL 0.2 mg/dL (0.2-1); TOT PROT 7.6 g/dl (6.4-8.2)
[2023-01-18 07:20] LABS: LACTIC ACID 2.4 mmol/L (0.4-2.0)
[2023-01-18] MEDS ORDERED: MAGNESIUM HYDROX GT PRN (07:45)
[2023-01-18] MEDS ORDERED: VITAMINS A AND D TOPICAL OINTMENT 60 GM TUBE TP PRN (07:45)
[2023-01-18] MEDS ORDERED: BACITRACIN ZINC 15 GM TUBE TOPICAL OINTMENT TP PRN (07:45)
[2023-01-18] MEDS ORDERED: CALCIUM CARB GT PRN (07:45)
[2023-01-18] MEDS ORDERED: ALBUTEROL SO4 2.5/IPRATROPIUM 0.5 INH SOL 3 ML VIAL.NEB. NEB PRN ×2 (07:45→08:06)
[2023-01-18] MEDS ORDERED: ACETAMINOPHEN 160 MG/5 ML *Children Solution GT PRN (07:45)
[2023-01-18] MEDS ORDERED: guaiFENesin 200 MG/10 ML 10 ML UNIT-DOSE CUPS GT PRN (07:45)
[2023-01-18] MEDS ORDERED: [UNRECOGNIZED DRUG - OTHER] GT PRN (07:45)
[2023-01-18] MEDS ORDERED: diphenhydrAMINE HCL 12.5 MG/5 ML UNIT-DOSE CUPS GT PRN (07:45)
[2023-01-18] MEDS ORDERED: ALBUTEROL SO4 2.5/IPRATROPIUM 0.5 INH SOL 3 ML VIAL.NEB. NEB SCH (08:00)
[2023-01-18] MEDS ORDERED: ALBUTEROL SO4 2.5/IPRATROPIUM 0.5 INH SOL 3 ML VIAL.NEB. NEB ONE (08:55)
[2023-01-18] MEDS ORDERED: LACTATED RINGERS SOLUTION 1,000 ML/1,000 ML INFUS.BAG IV SCH (09:00)
[2023-01-18] MEDS ORDERED: SODIUM CHLORIDE FOR INHALATION 3 ML VIAL.NEB IH SCH ×2 (10:00)
[2023-01-18] MEDS ORDERED: [UNRECOGNIZED DRUG - OTHER] GT SCH (10:00)
[2023-01-18] MEDS ORDERED: MIDODRINE HCL 5 MG TABLET ONE (10:50)
[2023-01-18] MEDS ORDERED: POLYETHYLENE GLYCOL (HEALTHYLAX) 3350 17 GM PACKET ONE (10:50)
[2023-01-18] MEDS ORDERED: ENOXAPARIN NA (PORCINE) 40 MG/0.4 ML DISP.SYRIN SQ ONE (10:50)
[2023-01-18] MEDS: SCOPOLAMINE HYDROBROMIDE 1 PATCH PATCH.TD72 TD SCH (11:13)
[2023-01-18] MEDS: SODIUM CHLORIDE FOR INHALATION 3 ML VIAL.NEB IH SCH ×3 (11:14→20:40)
[2023-01-18] MEDS: POLYETHYLENE GLYCOL (HEALTHYLAX) 3350 17 GM PACKET GT SCH ×2 (11:14→21:10)
[2023-01-18] MEDS: levETIRAcetam 500 MG/5 ML ORAL SOLUTION (UNIT-DOSE CUPS) PEG SCH ×2 (11:14→21:10)
[2023-01-18] MEDS: MIDODRINE HCL 5 MG TABLET GT SCH ×3 (11:14→17:51)
[2023-01-18] MEDS: ENOXAPARIN NA (PORCINE) 40 MG/0.4 ML DISP.SYRIN SQ SCH (11:14)
[2023-01-18] MEDS: BUDESONIDE 0.25 MG/2ML INH SUSP VIAL NEB SCH ×2 (11:30→20:39)
[2023-01-18 12:41] LABS: LACTIC ACID 2.2 mmol/L (0.4-2.0)
[2023-01-18] MEDS: SIMETHICONE 40 MG/0.6 ML BOTTLE GT SCH ×2 (14:09→21:13)
[2023-01-18] MEDS: MAG HYDROX/AL HYDROX/SIMETH 30 ML UNIT-DOSE CUP GT SCH ×2 (14:10→21:10)
[2023-01-18] MEDS: methylPREDNISolone NA SUCC 40 MG/1 ML VIAL IVPUSH SCH ×2 (14:11→17:52)
[2023-01-18] MEDS: BACLOFEN 10 MG TABLET (FP) GT SCH ×2 (14:11→21:10)
[2023-01-18 16:10] VITALS: BMI 25.9
[2023-01-18] MEDS: SENNOSIDES 8.8 MG/5 ML SYRUP GT SCH (21:10)
[2023-01-18] MEDS: CHOLECALCIFEROL (VIT D SOLUTION) 400 UNIT/1 ML DROPS GT SCH (21:14)
[2023-01-19] MEDS: methylPREDNISolone NA SUCC 40 MG/1 ML VIAL IVPUSH SCH ×3 (01:13→18:18)
[2023-01-19 06:49] LABS: BASO % 0.3 % (0-2.0); EOS % 0.1 % (0-4.5); HEMATOCRIT 26.1 % (35.4-49); HEMOGLOBIN 8.8 GM/dL (11.7-16.9); LYMPH % 12.9 % (8-40); MCH 32.4 pg (25.7-33.7); MCHC 33.7 g/dl (32.0-35.9); MEAN CELL VOLUME 96.4 fl (80-96); MEAN PLT VOLUME 8.1 fl (7.5-11.1); MONO % 1.6 % (3.8-10.2); NEUT % 85.1 % (42.8-82.8); PLATELET COUNT 380 10^3/uL (134-434); RBC 2.71 M/mm3 (4.00-5.60); RDW 16.6 % (11.9-15.9); WHITE BLOOD COUNT 6.9 K/mm3 (4.0-10.0)
[2023-01-19] MEDS ORDERED: PATIENT'S OWN MEDICATION (NON-FORMULARY) (Linaclotide [Linzess] 145 MCG Capsule) GT SCH (07:00)
[2023-01-19 07:10] LABS: POTASSIUM 4.1 mmol/L (3.5-5.1)
[2023-01-19] MEDS: BACLOFEN 10 MG TABLET (FP) GT SCH ×3 (07:12→21:12)
[2023-01-19] MEDS: MAG HYDROX/AL HYDROX/SIMETH 30 ML UNIT-DOSE CUP GT SCH ×3 (07:12→21:12)
[2023-01-19] MEDS: SIMETHICONE 40 MG/0.6 ML BOTTLE GT SCH ×3 (07:12→21:13)
[2023-01-19 07:16] LABS: ALBUMIN 3.1 g/dl (3.4-5.0); CALCIUM 8.6 mg/dL (8.5-10.1)
[2023-01-19 07:17] LABS: MAGNESIUM 2.7 mg/dL (1.8-2.4)
[2023-01-19 07:19] LABS: CREATININE 0.6 mg/dL (0.55-1.3)
[2023-01-19 07:21] LABS: BILIRUBIN,TOTAL 0.2 mg/dL (0.2-1); TOT PROT 7.7 g/dl (6.4-8.2)
[2023-01-19] MEDS ORDERED: NAPH,MB-DB/K PH,MBDB POWDER PACKET GT ONE (07:30)
[2023-01-19] MEDS: BUDESONIDE 0.25 MG/2ML INH SUSP VIAL NEB SCH ×2 (08:15→20:41)
[2023-01-19] MEDS: ALBUTEROL SO4 2.5/IPRATROPIUM 0.5 INH SOL 3 ML VIAL.NEB. NEB SCH ×4 (08:15→20:41)
[2023-01-19] MEDS: SODIUM CHLORIDE FOR INHALATION 3 ML VIAL.NEB IH SCH ×4 (08:52→20:41)
[2023-01-19] MEDS: levETIRAcetam 500 MG/5 ML ORAL SOLUTION (UNIT-DOSE CUPS) PEG SCH ×2 (09:08→21:13)
[2023-01-19] MEDS: POLYETHYLENE GLYCOL (HEALTHYLAX) 3350 17 GM PACKET GT SCH ×2 (09:09→21:12)
[2023-01-19] MEDS: MIDODRINE HCL 5 MG TABLET GT SCH ×3 (09:09→18:18)
[2023-01-19] MEDS: ENOXAPARIN NA (PORCINE) 40 MG/0.4 ML DISP.SYRIN SQ SCH (09:09)
[2023-01-19] MEDS: SENNOSIDES 8.8 MG/5 ML SYRUP GT SCH (21:12)
[2023-01-19] MEDS: CHOLECALCIFEROL (VIT D SOLUTION) 400 UNIT/1 ML DROPS GT SCH (21:13)
[2023-01-20] MEDS: methylPREDNISolone NA SUCC 40 MG/1 ML VIAL IVPUSH SCH ×2 (01:42→09:36)
[2023-01-20] MEDS: SIMETHICONE 40 MG/0.6 ML BOTTLE GT SCH ×3 (06:02→21:24)
[2023-01-20] MEDS: BACLOFEN 10 MG TABLET (FP) GT SCH ×3 (06:03→21:21)
[2023-01-20] MEDS: MAG HYDROX/AL HYDROX/SIMETH 30 ML UNIT-DOSE CUP GT SCH ×3 (06:03→21:22)
[2023-01-20 07:21] LABS: POTASSIUM 4.1 mmol/L (3.5-5.1)
[2023-01-20 07:25] LABS: ALBUMIN 3.2 g/dl (3.4-5.0); BLOOD UREA NITROGEN 14.3 mg/dL (7-18)
[2023-01-20 07:28] LABS: CREATININE 0.6 mg/dL (0.55-1.3)
[2023-01-20 07:29] LABS: BILIRUBIN,TOTAL 0.4 mg/dL (0.2-1); TOT PROT 7.5 g/dl (6.4-8.2)
[2023-01-20 07:31] LABS: HEMATOCRIT 26.4 % (35.4-49); HEMOGLOBIN 8.8 GM/dL (11.7-16.9); MCH 32.3 pg (25.7-33.7); MCHC 33.4 g/dl (32.0-35.9); MEAN CELL VOLUME 96.8 fl (80-96); MEAN PLT VOLUME 8.3 fl (7.5-11.1); PLATELET COUNT 431 10^3/uL (134-434); RBC 2.72 M/mm3 (4.00-5.60); RDW 17.1 % (11.9-15.9)
[2023-01-20 07:33] LABS: WHITE BLOOD COUNT 8.2 K/mm3 (4.0-10.0)
[2023-01-20] MEDS: SODIUM CHLORIDE FOR INHALATION 3 ML VIAL.NEB IH SCH ×4 (08:29→20:16)
[2023-01-20] MEDS: ALBUTEROL SO4 2.5/IPRATROPIUM 0.5 INH SOL 3 ML VIAL.NEB. NEB SCH ×4 (08:29→20:17)
[2023-01-20] MEDS: BUDESONIDE 0.25 MG/2ML INH SUSP VIAL NEB SCH ×2 (08:30→20:15)
[2023-01-20 08:59] LABS: PLATELET ESTIMATE ADEQUATE
[2023-01-20] MEDS: levETIRAcetam 500 MG/5 ML ORAL SOLUTION (UNIT-DOSE CUPS) PEG SCH ×2 (09:36→21:21)
[2023-01-20] MEDS: MIDODRINE HCL 5 MG TABLET GT SCH ×3 (09:36→18:09)
[2023-01-20] MEDS: POLYETHYLENE GLYCOL (HEALTHYLAX) 3350 17 GM PACKET GT SCH ×2 (09:36→21:21)
[2023-01-20] MEDS: ENOXAPARIN NA (PORCINE) 40 MG/0.4 ML DISP.SYRIN SQ SCH (09:36)
[2023-01-20 10:03] LABS: ANISOCYTOSIS 0; HELMET CELLS 0; HOWELL-JOLLY BODIES 0; MACROCYTOSIS 0; OVALOCYTE 0; ROULEAU 0; SICKELED CELLS 0; TARGET CELLS 0; TEAR DROP CELLS 0; TOXIC GRANULATION 0
[2023-01-20] MEDS: SENNOSIDES 8.8 MG/5 ML SYRUP GT SCH (21:21)
[2023-01-20] MEDS: CHOLECALCIFEROL (VIT D SOLUTION) 400 UNIT/1 ML DROPS GT SCH (21:22)
[2023-01-21] MEDS: BACLOFEN 10 MG TABLET (FP) GT SCH ×3 (06:08→21:54)
[2023-01-21] MEDS: MAG HYDROX/AL HYDROX/SIMETH 30 ML UNIT-DOSE CUP GT SCH ×3 (06:08→21:54)
[2023-01-21] MEDS: SIMETHICONE 40 MG/0.6 ML BOTTLE GT SCH ×3 (06:08→21:54)
[2023-01-21] MEDS: ALBUTEROL SO4 2.5/IPRATROPIUM 0.5 INH SOL 3 ML VIAL.NEB. NEB SCH ×4 (07:32→20:11)
[2023-01-21] MEDS: BUDESONIDE 0.25 MG/2ML INH SUSP VIAL NEB SCH ×2 (07:32→20:11)
[2023-01-21] MEDS: SODIUM CHLORIDE FOR INHALATION 3 ML VIAL.NEB IH SCH ×4 (07:32→21:11)
[2023-01-21] MEDS: ENOXAPARIN NA (PORCINE) 40 MG/0.4 ML DISP.SYRIN SQ SCH (09:17)
[2023-01-21] MEDS: POLYETHYLENE GLYCOL (HEALTHYLAX) 3350 17 GM PACKET GT SCH ×2 (09:17→21:54)
[2023-01-21] MEDS: levETIRAcetam 500 MG/5 ML ORAL SOLUTION (UNIT-DOSE CUPS) PEG SCH ×2 (09:17→21:54)
[2023-01-21] MEDS: MIDODRINE HCL 5 MG TABLET GT SCH ×3 (09:18→19:10)
[2023-01-21] MEDS: SCOPOLAMINE HYDROBROMIDE 1 PATCH PATCH.TD72 TD SCH (09:19)
[2023-01-21] MEDS ORDERED: methylPREDNISolone NA SUCC 40 MG/1 ML VIAL IVPUSH SCH (10:00)
[2023-01-21 13:10] LABS: BASO % 0.1 % (0-2.0); EOS % 0.4 % (0-4.5); HEMATOCRIT 27.3 % (35.4-49); HEMOGLOBIN 9.4 GM/dL (11.7-16.9); LYMPH % 20.6 % (8-40); MCHC 34.5 g/dl (32.0-35.9); MEAN CELL VOLUME 95.8 fl (80-96); MEAN PLT VOLUME 7.5 fl (7.5-11.1); MONO % 4.3 % (3.8-10.2); NEUT % 74.6 % (42.8-82.8); PLATELET COUNT 441 10^3/uL (134-434); RBC 2.85 M/mm3 (4.00-5.60); RDW 16.9 % (11.9-15.9); WHITE BLOOD COUNT 6.2 K/mm3 (4.0-10.0)
[2023-01-21 13:40] LABS: POTASSIUM 3.9 mmol/L (3.5-5.1)
[2023-01-21 13:42] LABS: ALBUMIN 3.2 g/dl (3.4-5.0); BLOOD UREA NITROGEN 15.4 mg/dL (7-18)
[2023-01-21 13:45] LABS: CREATININE 0.6 mg/dL (0.55-1.3)
[2023-01-21 13:47] LABS: BILIRUBIN,TOTAL 0.2 mg/dL (0.2-1); TOT PROT 7.6 g/dl (6.4-8.2)
[2023-01-21 14:58] LABS: PHOSPHOROUS 3.8 mg/dL (2.5-4.9)
[2023-01-21] MEDS: SENNOSIDES 8.8 MG/5 ML SYRUP GT SCH (21:54)
[2023-01-21] MEDS: CHOLECALCIFEROL (VIT D SOLUTION) 400 UNIT/1 ML DROPS GT SCH (21:57)
[2023-01-22] MEDS: MAG HYDROX/AL HYDROX/SIMETH 30 ML UNIT-DOSE CUP GT SCH ×3 (05:23→22:23)
[2023-01-22] MEDS: BACLOFEN 10 MG TABLET (FP) GT SCH ×3 (05:23→22:23)
[2023-01-22] MEDS: SIMETHICONE 40 MG/0.6 ML BOTTLE GT SCH ×3 (05:24→22:27)
[2023-01-22] MEDS: BISACODYL 10 MG SUPP.RECT PR PRN (05:40)
[2023-01-22 07:32] LABS: BASO % 0.2 % (0-2.0); EOS % 1.1 % (0-4.5); HEMATOCRIT 28.7 % (35.4-49); HEMOGLOBIN 9.4 GM/dL (11.7-16.9); LYMPH % 33.8 % (8-40); MCH 31.4 pg (25.7-33.7); MCHC 32.6 g/dl (32.0-35.9); MEAN CELL VOLUME 96.2 fl (80-96); MEAN PLT VOLUME 7.1 fl (7.5-11.1); MONO % 9.4 % (3.8-10.2); NEUT % 55.5 % (42.8-82.8); PLATELET COUNT 533 10^3/uL (134-434); RBC 2.99 M/mm3 (4.00-5.60); RDW 16.8 % (11.9-15.9); WHITE BLOOD COUNT 10.3 K/mm3 (4.0-10.0)
[2023-01-22] MEDS: SODIUM CHLORIDE FOR INHALATION 3 ML VIAL.NEB IH SCH ×4 (07:35→19:19)
[2023-01-22] MEDS: BUDESONIDE 0.25 MG/2ML INH SUSP VIAL NEB SCH ×2 (07:35→19:19)
[2023-01-22] MEDS: ALBUTEROL SO4 2.5/IPRATROPIUM 0.5 INH SOL 3 ML VIAL.NEB. NEB SCH ×4 (07:35→19:19)
[2023-01-22 07:47] LABS: POTASSIUM 4.1 mmol/L (3.5-5.1)
[2023-01-22 07:50] LABS: CALCIUM 9.1 mg/dL (8.5-10.1)
[2023-01-22 07:51] LABS: ALBUMIN 3.2 g/dl (3.4-5.0); BLOOD UREA NITROGEN 17.7 mg/dL (7-18)
[2023-01-22 07:54] LABS: CREATININE 0.5 mg/dL (0.55-1.3)
[2023-01-22 07:55] LABS: TOT PROT 7.4 g/dl (6.4-8.2)
[2023-01-22 07:56] LABS: BILIRUBIN,TOTAL 0.3 mg/dL (0.2-1)
[2023-01-22] MEDS: ENOXAPARIN NA (PORCINE) 40 MG/0.4 ML DISP.SYRIN SQ SCH (10:06)
[2023-01-22] MEDS: MIDODRINE HCL 5 MG TABLET GT SCH ×3 (10:06→17:19)
[2023-01-22] MEDS: predniSONE 20 MG TABLET (UD) PO SCH (10:06)
[2023-01-22] MEDS: levETIRAcetam 500 MG/5 ML ORAL SOLUTION (UNIT-DOSE CUPS) PEG SCH ×2 (10:06→22:23)
[2023-01-22] MEDS: ZINC OXIDE 20% TOPICAL OINTMENT 30 GM TUBE TP SCH ×2 (11:10→22:24)
[2023-01-22] MEDS ORDERED: INSULIN (NOVOLOG) ASPART 100 UNITS/ML 10ML VIAL ONE (11:42)
[2023-01-22] MEDS: POLYETHYLENE GLYCOL (HEALTHYLAX) 3350 17 GM PACKET GT SCH ×2 (13:17→22:24)
[2023-01-22] MEDS: CHOLECALCIFEROL (VIT D SOLUTION) 400 UNIT/1 ML DROPS GT SCH (22:22)
[2023-01-22] MEDS: SENNOSIDES 8.8 MG/5 ML SYRUP GT SCH (22:24)
[2023-01-23] MEDS: SIMETHICONE 40 MG/0.6 ML BOTTLE GT SCH ×3 (05:06→21:28)
[2023-01-23] MEDS: MAG HYDROX/AL HYDROX/SIMETH 30 ML UNIT-DOSE CUP GT SCH ×3 (05:06→21:27)
[2023-01-23] MEDS: POLYETHYLENE GLYCOL (HEALTHYLAX) 3350 17 GM PACKET GT SCH ×3 (05:06→21:27)
[2023-01-23] MEDS: BACLOFEN 10 MG TABLET (FP) GT SCH ×3 (05:06→21:28)
[2023-01-23] MEDS: BUDESONIDE 0.25 MG/2ML INH SUSP VIAL NEB SCH ×2 (08:35→20:54)
[2023-01-23] MEDS: SODIUM CHLORIDE FOR INHALATION 3 ML VIAL.NEB IH SCH ×4 (08:40→20:55)
[2023-01-23] MEDS: ALBUTEROL SO4 2.5/IPRATROPIUM 0.5 INH SOL 3 ML VIAL.NEB. NEB SCH ×2 (08:40→11:45)
[2023-01-23] MEDS: MIDODRINE HCL 5 MG TABLET GT SCH ×3 (09:18→17:55)
[2023-01-23] MEDS: ENOXAPARIN NA (PORCINE) 40 MG/0.4 ML DISP.SYRIN SQ SCH (09:18)
[2023-01-23] MEDS: predniSONE 20 MG TABLET (UD) PO SCH (09:18)
[2023-01-23] MEDS: levETIRAcetam 500 MG/5 ML ORAL SOLUTION (UNIT-DOSE CUPS) PEG SCH ×2 (09:18→21:27)
[2023-01-23] MEDS: ZINC OXIDE 20% TOPICAL OINTMENT 30 GM TUBE TP SCH ×2 (09:18→21:28)
[2023-01-23] MEDS: SENNOSIDES 8.8 MG/5 ML SYRUP GT SCH (21:28)
[2023-01-23] MEDS: CHOLECALCIFEROL (VIT D SOLUTION) 400 UNIT/1 ML DROPS GT SCH (21:28)
[2023-01-24] MEDS: BACLOFEN 10 MG TABLET (FP) GT SCH ×3 (05:56→21:05)
[2023-01-24] MEDS: MAG HYDROX/AL HYDROX/SIMETH 30 ML UNIT-DOSE CUP GT SCH ×3 (05:56→21:05)
[2023-01-24] MEDS: POLYETHYLENE GLYCOL (HEALTHYLAX) 3350 17 GM PACKET GT SCH ×3 (05:56→21:05)
[2023-01-24] MEDS: SIMETHICONE 40 MG/0.6 ML BOTTLE GT SCH ×3 (05:57→21:05)
[2023-01-24 07:00] LABS: BASO % 0.1 % (0-2.0); EOS % 1.4 % (0-4.5); HEMATOCRIT 29.6 % (35.4-49); HEMOGLOBIN 10.2 GM/dL (11.7-16.9); LYMPH % 47.7 % (8-40); MCH 33.1 pg (25.7-33.7); MCHC 34.5 g/dl (32.0-35.9); MEAN PLT VOLUME 7.3 fl (7.5-11.1); NEUT % 38.8 % (42.8-82.8); PLATELET COUNT 575 10^3/uL (134-434); RBC 3.09 M/mm3 (4.00-5.60); RDW 17.2 % (11.9-15.9); WHITE BLOOD COUNT 6.7 K/mm3 (4.0-10.0)
[2023-01-24 07:14] LABS: POTASSIUM 3.6 mmol/L (3.5-5.1)
[2023-01-24 07:16] LABS: CALCIUM 9.2 mg/dL (8.5-10.1)
[2023-01-24 07:17] LABS: ALBUMIN 3.4 g/dl (3.4-5.0); BLOOD UREA NITROGEN 19.7 mg/dL (7-18); MAGNESIUM 2.4 mg/dL (1.8-2.4)
[2023-01-24 07:20] LABS: CREATININE 0.6 mg/dL (0.55-1.3)
[2023-01-24 07:21] LABS: BILIRUBIN,TOTAL 0.8 mg/dL (0.2-1)
[2023-01-24 07:22] LABS: TOT PROT 7.8 g/dl (6.4-8.2)
[2023-01-24] MEDS: BUDESONIDE 0.25 MG/2ML INH SUSP VIAL NEB SCH ×2 (08:30→20:05)
[2023-01-24] MEDS: SCOPOLAMINE HYDROBROMIDE 1 PATCH PATCH.TD72 TD SCH (08:40)
[2023-01-24] MEDS: levETIRAcetam 500 MG/5 ML ORAL SOLUTION (UNIT-DOSE CUPS) PEG SCH ×2 (09:53→21:05)
[2023-01-24] MEDS: MIDODRINE HCL 5 MG TABLET GT SCH ×3 (09:53→17:00)
[2023-01-24] MEDS: ENOXAPARIN NA (PORCINE) 40 MG/0.4 ML DISP.SYRIN SQ SCH (09:53)
[2023-01-24] MEDS ORDERED: predniSONE 20 MG TABLET (UD) PO SCH (10:00)
[2023-01-24] MEDS: ZINC OXIDE 20% TOPICAL OINTMENT 30 GM TUBE TP SCH ×2 (10:05→21:06)
[2023-01-24] MEDS: SODIUM CHLORIDE FOR INHALATION 3 ML VIAL.NEB IH SCH ×4 (11:59→22:38)
[2023-01-24] MEDS: SENNOSIDES 8.8 MG/5 ML SYRUP GT SCH (21:05)
[2023-01-24] MEDS: CHOLECALCIFEROL (VIT D SOLUTION) 400 UNIT/1 ML DROPS GT SCH (21:05)
[2023-01-24] MEDS: BISACODYL 10 MG SUPP.RECT PR PRN (23:23)
[2023-01-25] MEDS: MAG HYDROX/AL HYDROX/SIMETH 30 ML UNIT-DOSE CUP GT SCH ×2 (06:05→15:10)
[2023-01-25] MEDS: POLYETHYLENE GLYCOL (HEALTHYLAX) 3350 17 GM PACKET GT SCH ×3 (06:05→21:06)
[2023-01-25] MEDS: SIMETHICONE 40 MG/0.6 ML BOTTLE GT SCH ×3 (06:06→21:07)
[2023-01-25] MEDS: BACLOFEN 10 MG TABLET (FP) GT SCH ×3 (06:06→21:06)
[2023-01-25 07:26] LABS: BASO % 0.5 % (0-2.0); EOS % 2.5 % (0-4.5); HEMATOCRIT 29.1 % (35.4-49); HEMOGLOBIN 9.8 GM/dL (11.7-16.9); LYMPH % 48.2 % (8-40); MCH 32.9 pg (25.7-33.7); MCHC 33.7 g/dl (32.0-35.9); MEAN CELL VOLUME 97.4 fl (80-96); MEAN PLT VOLUME 7.3 fl (7.5-11.1); MONO % 10.4 % (3.8-10.2); NEUT % 38.4 % (42.8-82.8); PLATELET COUNT 515 10^3/uL (134-434); RBC 2.99 M/mm3 (4.00-5.60); WHITE BLOOD COUNT 6.1 K/mm3 (4.0-10.0)
[2023-01-25 07:42] LABS: POTASSIUM 3.7 mmol/L (3.5-5.1)
[2023-01-25 07:46] LABS: ALBUMIN 3.2 g/dl (3.4-5.0); BLOOD UREA NITROGEN 21.1 mg/dL (7-18); CALCIUM 8.7 mg/dL (8.5-10.1)
[2023-01-25 07:49] LABS: CREATININE 0.5 mg/dL (0.55-1.3)
[2023-01-25 07:51] LABS: BILIRUBIN,TOTAL 0.6 mg/dL (0.2-1); TOT PROT 7.2 g/dl (6.4-8.2)
[2023-01-25] MEDS: SODIUM CHLORIDE FOR INHALATION 3 ML VIAL.NEB IH SCH ×4 (08:12→20:05)
[2023-01-25] MEDS: BUDESONIDE 0.25 MG/2ML INH SUSP VIAL NEB SCH ×2 (08:12→20:05)
[2023-01-25] MEDS: MIDODRINE HCL 5 MG TABLET GT SCH ×3 (10:50→17:00)
[2023-01-25] MEDS: levETIRAcetam 500 MG/5 ML ORAL SOLUTION (UNIT-DOSE CUPS) PEG SCH ×2 (10:50→21:06)
[2023-01-25] MEDS: predniSONE 20 MG TABLET (UD) GT SCH (10:50)
[2023-01-25 11:10] LABS: RETICULOCYTES 3.24 % (0.5-1.5)
[2023-01-25] MEDS ORDERED: MAG HYDROX/AL HYDROX/SIMETH 30 ML UNIT-DOSE CUP PO PRN (15:24)
[2023-01-25] MEDS: ZINC OXIDE 20% TOPICAL OINTMENT 30 GM TUBE TP SCH ×2 (15:31→21:07)
[2023-01-25] MEDS: SENNOSIDES 8.8 MG/5 ML SYRUP GT SCH (21:06)
[2023-01-25] MEDS: CHOLECALCIFEROL (VIT D SOLUTION) 400 UNIT/1 ML DROPS GT SCH (21:07)
[2023-01-26] MEDS: POLYETHYLENE GLYCOL (HEALTHYLAX) 3350 17 GM PACKET GT SCH ×3 (06:00→21:39)
[2023-01-26] MEDS: BACLOFEN 10 MG TABLET (FP) GT SCH ×3 (06:01→21:39)
[2023-01-26] MEDS: SIMETHICONE 40 MG/0.6 ML BOTTLE GT SCH ×3 (06:02→21:39)
[2023-01-26 06:41] LABS: BASO % 1.2 % (0-2.0); EOS % 2.3 % (0-4.5); HEMATOCRIT 29.5 % (35.4-49); HEMOGLOBIN 9.9 GM/dL (11.7-16.9); LYMPH % 45.8 % (8-40); MCH 32.8 pg (25.7-33.7); MCHC 33.6 g/dl (32.0-35.9); MEAN CELL VOLUME 97.6 fl (80-96); MEAN PLT VOLUME 7.7 fl (7.5-11.1); MONO % 8.8 % (3.8-10.2); NEUT % 41.9 % (42.8-82.8); PLATELET COUNT 489 10^3/uL (134-434); RBC 3.02 M/mm3 (4.00-5.60); RDW 16.7 % (11.9-15.9); WHITE BLOOD COUNT 6.2 K/mm3 (4.0-10.0)
[2023-01-26] MEDS: SODIUM CHLORIDE FOR INHALATION 3 ML VIAL.NEB IH SCH ×4 (08:30→20:14)
[2023-01-26] MEDS: BUDESONIDE 0.25 MG/2ML INH SUSP VIAL NEB SCH ×2 (08:30→20:14)
[2023-01-26] MEDS: levETIRAcetam 500 MG/5 ML ORAL SOLUTION (UNIT-DOSE CUPS) PEG SCH ×2 (09:22→21:39)
[2023-01-26] MEDS: MIDODRINE HCL 5 MG TABLET GT SCH ×3 (09:23→17:55)
[2023-01-26] MEDS: predniSONE 20 MG TABLET (UD) GT SCH (09:23)
[2023-01-26] MEDS: ZINC OXIDE 20% TOPICAL OINTMENT 30 GM TUBE TP SCH ×2 (10:22→21:39)
[2023-01-26] MEDS: SENNOSIDES 8.8 MG/5 ML SYRUP GT SCH (21:39)
[2023-01-26] MEDS: CHOLECALCIFEROL (VIT D SOLUTION) 400 UNIT/1 ML DROPS GT SCH (21:39)
[2023-01-27] MEDS: POLYETHYLENE GLYCOL (HEALTHYLAX) 3350 17 GM PACKET GT SCH ×3 (06:00→21:18)
[2023-01-27] MEDS: BACLOFEN 10 MG TABLET (FP) GT SCH ×3 (06:00→21:18)
[2023-01-27] MEDS: SIMETHICONE 40 MG/0.6 ML BOTTLE GT SCH ×3 (06:00→21:28)
[2023-01-27] MEDS: BUDESONIDE 0.25 MG/2ML INH SUSP VIAL NEB SCH ×2 (08:05→20:05)
[2023-01-27] MEDS: SODIUM CHLORIDE FOR INHALATION 3 ML VIAL.NEB IH SCH ×4 (08:05→20:05)
[2023-01-27] MEDS: SCOPOLAMINE HYDROBROMIDE 1 PATCH PATCH.TD72 TD SCH (09:19)
[2023-01-27] MEDS: levETIRAcetam 500 MG/5 ML ORAL SOLUTION (UNIT-DOSE CUPS) PEG SCH ×2 (09:19→21:17)
[2023-01-27] MEDS: predniSONE 20 MG TABLET (UD) GT SCH (09:19)
[2023-01-27] MEDS: MIDODRINE HCL 5 MG TABLET GT SCH ×3 (09:21→18:36)
[2023-01-27] MEDS: ZINC OXIDE 20% TOPICAL OINTMENT 30 GM TUBE TP SCH ×2 (10:30→21:19)
[2023-01-27] MEDS: CHOLECALCIFEROL (VIT D SOLUTION) 400 UNIT/1 ML DROPS GT SCH (21:10)
[2023-01-27] MEDS: SENNOSIDES 8.8 MG/5 ML SYRUP GT SCH (21:18)
[2023-01-28] MEDS: BACLOFEN 10 MG TABLET (FP) GT SCH ×3 (05:21→21:43)
[2023-01-28] MEDS: SIMETHICONE 40 MG/0.6 ML BOTTLE GT SCH ×3 (05:21→21:47)
[2023-01-28] MEDS: POLYETHYLENE GLYCOL (HEALTHYLAX) 3350 17 GM PACKET GT SCH ×3 (05:21→21:40)
[2023-01-28 08:19] LABS: POTASSIUM 3.4 mmol/L (3.5-5.1)
[2023-01-28] MEDS: SODIUM CHLORIDE FOR INHALATION 3 ML VIAL.NEB IH SCH ×4 (08:34→20:45)
[2023-01-28 08:48] LABS: CALCIUM 9.4 mg/dL (8.5-10.1)
[2023-01-28 08:49] LABS: ALBUMIN 3.4 g/dl (3.4-5.0); BLOOD UREA NITROGEN 16.9 mg/dL (7-18)
[2023-01-28 08:52] LABS: CREATININE 0.4 mg/dL (0.55-1.3)
[2023-01-28 08:53] LABS: BILIRUBIN,TOTAL 0.4 mg/dL (0.2-1); TOT PROT 7.6 g/dl (6.4-8.2)
[2023-01-28] MEDS ORDERED: POTASSIUM CHLORIDE ORAL LIQUID 20 MEQ/15 ML GT ONE (09:00)
[2023-01-28] MEDS: levETIRAcetam 500 MG/5 ML ORAL SOLUTION (UNIT-DOSE CUPS) PEG SCH ×2 (09:25→21:40)
[2023-01-28] MEDS: MIDODRINE HCL 5 MG TABLET GT SCH ×3 (09:26→17:11)
[2023-01-28] MEDS: predniSONE 10 MG TABLET (UD) GT SCH (09:26)
[2023-01-28] MEDS: ZINC OXIDE 20% TOPICAL OINTMENT 30 GM TUBE TP SCH ×2 (09:48→21:53)
[2023-01-28] MEDS: BUDESONIDE 0.25 MG/2ML INH SUSP VIAL NEB SCH ×2 (10:16→20:45)
[2023-01-28 19:36] LABS: BASO % 0.3 % (0-2.0); EOS % 2.2 % (0-4.5); HEMATOCRIT 31.6 % (35.4-49); HEMOGLOBIN 10.9 GM/dL (11.7-16.9); LYMPH % 13.1 % (8-40); MCH 33.1 pg (25.7-33.7); MCHC 34.3 g/dl (32.0-35.9); MEAN CELL VOLUME 96.2 fl (80-96); MONO % 4.8 % (3.8-10.2); NEUT % 79.6 % (42.8-82.8); PLATELET COUNT 509 10^3/uL (134-434); RBC 3.29 M/mm3 (4.00-5.60); RDW 16.7 % (11.9-15.9)
[2023-01-28] MEDS: SENNOSIDES 8.8 MG/5 ML SYRUP GT SCH (21:43)
[2023-01-28] MEDS: CHOLECALCIFEROL (VIT D SOLUTION) 400 UNIT/1 ML DROPS GT SCH (21:46)
[2023-01-29] MEDS: SIMETHICONE 40 MG/0.6 ML BOTTLE GT SCH ×3 (05:56→21:49)
[2023-01-29] MEDS: POLYETHYLENE GLYCOL (HEALTHYLAX) 3350 17 GM PACKET GT SCH ×3 (05:56→21:48)
[2023-01-29] MEDS: BACLOFEN 10 MG TABLET (FP) GT SCH ×3 (05:56→21:48)
[2023-01-29 07:46] LABS: BASO % 0.4 % (0-2.0); HEMATOCRIT 33.5 % (35.4-49); LYMPH % 34.6 % (8-40); MCH 32.1 pg (25.7-33.7); MCHC 32.7 g/dl (32.0-35.9); MEAN CELL VOLUME 97.9 fl (80-96); MONO % 9.9 % (3.8-10.2); NEUT % 51.1 % (42.8-82.8); PLATELET COUNT 575 10^3/uL (134-434); RBC 3.42 M/mm3 (4.00-5.60); RDW 16.7 % (11.9-15.9); WHITE BLOOD COUNT 9.2 K/mm3 (4.0-10.0)
[2023-01-29 08:07] LABS: CALCIUM 8.9 mg/dL (8.5-10.1); POTASSIUM 3.5 mmol/L (3.5-5.1)
[2023-01-29 08:08] LABS: ALBUMIN 3.5 g/dl (3.4-5.0); BLOOD UREA NITROGEN 15.1 mg/dL (7-18)
[2023-01-29 08:11] LABS: CREATININE 0.6 mg/dL (0.55-1.3)
[2023-01-29 08:12] LABS: BILIRUBIN,TOTAL 0.6 mg/dL (0.2-1); TOT PROT 7.7 g/dl (6.4-8.2)
[2023-01-29] MEDS: BUDESONIDE 0.25 MG/2ML INH SUSP VIAL NEB SCH ×2 (08:30→20:39)
[2023-01-29] MEDS: SODIUM CHLORIDE FOR INHALATION 3 ML VIAL.NEB IH SCH ×4 (08:30→20:40)
[2023-01-29] MEDS: predniSONE 10 MG TABLET (UD) GT SCH (10:59)
[2023-01-29] MEDS: MIDODRINE HCL 5 MG TABLET GT SCH ×3 (10:59→17:18)
[2023-01-29] MEDS: levETIRAcetam 500 MG/5 ML ORAL SOLUTION (UNIT-DOSE CUPS) PEG SCH ×2 (10:59→21:48)
[2023-01-29] MEDS: ZINC OXIDE 20% TOPICAL OINTMENT 30 GM TUBE TP SCH ×2 (10:59→22:02)
[2023-01-29] MEDS: SENNOSIDES 8.8 MG/5 ML SYRUP GT SCH (21:48)
[2023-01-29] MEDS: CHOLECALCIFEROL (VIT D SOLUTION) 400 UNIT/1 ML DROPS GT SCH (22:02)
[2023-01-30] MEDS: POLYETHYLENE GLYCOL (HEALTHYLAX) 3350 17 GM PACKET GT SCH ×2 (05:30→14:43)
[2023-01-30] MEDS: SIMETHICONE 40 MG/0.6 ML BOTTLE GT SCH ×3 (05:30→22:07)
[2023-01-30] MEDS: BACLOFEN 10 MG TABLET (FP) GT SCH ×3 (05:30→22:07)
[2023-01-30 07:28] LABS: BASO % 0.4 % (0-2.0); HEMATOCRIT 30.5 % (35.4-49); HEMOGLOBIN 10.3 GM/dL (11.7-16.9); LYMPH % 29.5 % (8-40); MCH 32.5 pg (25.7-33.7); MCHC 33.6 g/dl (32.0-35.9); MEAN CELL VOLUME 96.8 fl (80-96); MEAN PLT VOLUME 7.9 fl (7.5-11.1); MONO % 9.3 % (3.8-10.2); NEUT % 55.8 % (42.8-82.8); PLATELET COUNT 453 10^3/uL (134-434); RBC 3.15 M/mm3 (4.00-5.60); RDW 16.5 % (11.9-15.9); WHITE BLOOD COUNT 7.7 K/mm3 (4.0-10.0)
[2023-01-30 07:32] LABS: POTASSIUM 3.2 mmol/L (3.5-5.1)
[2023-01-30 07:33] LABS: CALCIUM 9.4 mg/dL (8.5-10.1)
[2023-01-30 07:34] LABS: ALBUMIN 3.2 g/dl (3.4-5.0)
[2023-01-30 07:37] LABS: CREATININE 0.5 mg/dL (0.55-1.3); TOT PROT 7.1 g/dl (6.4-8.2)
[2023-01-30 07:38] LABS: BILIRUBIN,TOTAL 0.3 mg/dL (0.2-1)
[2023-01-30] MEDS ORDERED: POTASSIUM CHLORIDE ORAL LIQUID 20 MEQ/15 ML PO ONE (08:04)
[2023-01-30] MEDS: SODIUM CHLORIDE FOR INHALATION 3 ML VIAL.NEB IH SCH ×4 (08:28→20:30)
[2023-01-30] MEDS: BUDESONIDE 0.25 MG/2ML INH SUSP VIAL NEB SCH ×2 (08:28→20:30)
[2023-01-30] MEDS: SCOPOLAMINE HYDROBROMIDE 1 PATCH PATCH.TD72 TD SCH (09:20)
[2023-01-30] MEDS: levETIRAcetam 500 MG/5 ML ORAL SOLUTION (UNIT-DOSE CUPS) PEG SCH ×2 (09:20→22:07)
[2023-01-30] MEDS: MIDODRINE HCL 5 MG TABLET GT SCH ×4 (09:21→17:29)
[2023-01-30] MEDS: predniSONE 10 MG TABLET (UD) GT SCH (09:21)
[2023-01-30] MEDS: ZINC OXIDE 20% TOPICAL OINTMENT 30 GM TUBE TP SCH ×2 (09:24→22:08)
[2023-01-30] MEDS ORDERED: POTASSIUM CHLORIDE ORAL LIQUID 20 MEQ/15 ML PEG ONE (09:30)
[2023-01-30] MEDS: CHOLECALCIFEROL (VIT D SOLUTION) 400 UNIT/1 ML DROPS GT SCH (22:08)
[2023-01-30] MEDS: SENNOSIDES 8.8 MG/5 ML SYRUP GT SCH (22:08)
[2023-01-31] MEDS: BACLOFEN 10 MG TABLET (FP) GT SCH ×3 (06:56→22:07)
[2023-01-31] MEDS: SIMETHICONE 40 MG/0.6 ML BOTTLE GT SCH ×3 (06:56→22:08)
[2023-01-31 07:50] LABS: BASO % 0.5 % (0-2.0); EOS % 2.8 % (0-4.5); HEMATOCRIT 32.6 % (35.4-49); HEMOGLOBIN 10.8 GM/dL (11.7-16.9); LYMPH % 23.6 % (8-40); MCH 32.6 pg (25.7-33.7); MCHC 33.2 g/dl (32.0-35.9); MEAN CELL VOLUME 98.1 fl (80-96); MEAN PLT VOLUME 8.2 fl (7.5-11.1); MONO % 8.4 % (3.8-10.2); NEUT % 64.7 % (42.8-82.8); PLATELET COUNT 443 10^3/uL (134-434); RBC 3.32 M/mm3 (4.00-5.60); RDW 16.7 % (11.9-15.9); WHITE BLOOD COUNT 10.8 K/mm3 (4.0-10.0)
[2023-01-31 07:54] LABS: POTASSIUM 3.8 mmol/L (3.5-5.1)
[2023-01-31] MEDS: SODIUM CHLORIDE FOR INHALATION 3 ML VIAL.NEB IH SCH ×4 (07:55→20:20)
[2023-01-31] MEDS: BUDESONIDE 0.25 MG/2ML INH SUSP VIAL NEB SCH ×2 (07:55→20:20)
[2023-01-31 07:59] LABS: ALBUMIN 3.3 g/dl (3.4-5.0); MAGNESIUM 2.1 mg/dL (1.8-2.4)
[2023-01-31 08:02] LABS: CREATININE 0.6 mg/dL (0.55-1.3)
[2023-01-31 08:03] LABS: BILIRUBIN,TOTAL 0.3 mg/dL (0.2-1)
[2023-01-31 08:04] LABS: TOT PROT 7.2 g/dl (6.4-8.2)
[2023-01-31] MEDS: MIDODRINE HCL 5 MG TABLET GT SCH ×3 (10:05→17:14)
[2023-01-31] MEDS: levETIRAcetam 500 MG/5 ML ORAL SOLUTION (UNIT-DOSE CUPS) PEG SCH ×2 (10:07→22:08)
[2023-01-31] MEDS: ZINC OXIDE 20% TOPICAL OINTMENT 30 GM TUBE TP SCH ×2 (10:08→22:09)
[2023-01-31] MEDS: SENNOSIDES 8.8 MG/5 ML SYRUP GT SCH (22:07)
[2023-01-31] MEDS: CHOLECALCIFEROL (VIT D SOLUTION) 400 UNIT/1 ML DROPS GT SCH (22:08)
[2023-02-01] MEDS: BACLOFEN 10 MG TABLET (FP) GT SCH ×3 (05:44→21:30)
[2023-02-01] MEDS: SIMETHICONE 40 MG/0.6 ML BOTTLE GT SCH ×3 (05:44→21:29)
[2023-02-01] MEDS: BUDESONIDE 0.25 MG/2ML INH SUSP VIAL NEB SCH ×2 (07:15→20:04)
[2023-02-01] MEDS: SODIUM CHLORIDE FOR INHALATION 3 ML VIAL.NEB IH SCH ×4 (07:15→20:04)
[2023-02-01 08:02] LABS: BASO % 0.6 % (0-2.0); HEMATOCRIT 32.2 % (35.4-49); HEMOGLOBIN 10.6 GM/dL (11.7-16.9); LYMPH % 43.4 % (8-40); MCH 32.3 pg (25.7-33.7); MEAN CELL VOLUME 98.1 fl (80-96); MEAN PLT VOLUME 8.3 fl (7.5-11.1); MONO % 12.1 % (3.8-10.2); NEUT % 37.9 % (42.8-82.8); PLATELET COUNT 368 10^3/uL (134-434); RBC 3.28 M/mm3 (4.00-5.60); RDW 16.1 % (11.9-15.9)
[2023-02-01 08:17] LABS: POTASSIUM 3.9 mmol/L (3.5-5.1)
[2023-02-01 08:25] LABS: ALBUMIN 3.2 g/dl (3.4-5.0); BLOOD UREA NITROGEN 12.9 mg/dL (7-18); CALCIUM 8.5 mg/dL (8.5-10.1); MAGNESIUM 2.1 mg/dL (1.8-2.4)
[2023-02-01 08:27] LABS: BILIRUBIN,TOTAL 0.2 mg/dL (0.2-1)
[2023-02-01 08:29] LABS: CREATININE 0.6 mg/dL (0.55-1.3); PHOSPHOROUS 3.6 mg/dL (2.5-4.9)
[2023-02-01] MEDS: MIDODRINE HCL 5 MG TABLET GT SCH ×3 (09:31→18:09)
[2023-02-01] MEDS: ZINC OXIDE 20% TOPICAL OINTMENT 30 GM TUBE TP SCH ×2 (09:31→21:31)
[2023-02-01] MEDS: levETIRAcetam 500 MG/5 ML ORAL SOLUTION (UNIT-DOSE CUPS) PEG SCH ×2 (09:31→21:30)
[2023-02-01] MEDS: CHOLECALCIFEROL (VIT D SOLUTION) 400 UNIT/1 ML DROPS GT SCH (21:29)
[2023-02-01] MEDS: SENNOSIDES 8.8 MG/5 ML SYRUP GT SCH (21:30)
[2023-02-01] MEDS ORDERED: VITAMINS A AND D TOPICAL OINTMENT 60 GM TUBE TP PRN (23:12)
[2023-02-01] MEDS ORDERED: ACETAMINOPHEN 160 MG/5 ML *Children Solution GT PRN (23:12)
[2023-02-01] MEDS ORDERED: diphenhydrAMINE HCL 12.5 MG/5 ML UNIT-DOSE CUPS GT PRN (23:12)
[2023-02-01] MEDS ORDERED: BISACODYL 10 MG SUPP.RECT PR PRN (23:12)
[2023-02-01] MEDS ORDERED: guaiFENesin 200 MG/10 ML 10 ML UNIT-DOSE CUPS GT PRN (23:12)
[2023-02-01] MEDS ORDERED: BACITRACIN ZINC 15 GM TUBE TOPICAL OINTMENT TP PRN (23:12)
[2023-02-02] MEDS: BACLOFEN 10 MG TABLET (FP) GT SCH ×2 (06:25→13:20)
[2023-02-02] MEDS: SIMETHICONE 40 MG/0.6 ML BOTTLE GT SCH ×2 (06:42→13:20)
[2023-02-02] MEDS: SODIUM CHLORIDE FOR INHALATION 3 ML VIAL.NEB IH SCH ×4 (07:40→20:05)
[2023-02-02] MEDS: BUDESONIDE 0.25 MG/2ML INH SUSP VIAL NEB SCH ×2 (07:40→20:05)
[2023-02-02] MEDS ORDERED: SCOPOLAMINE HYDROBROMIDE 1 PATCH PATCH.TD72 TD SCH (07:45)
[2023-02-02] MEDS: MIDODRINE HCL 5 MG TABLET GT SCH ×3 (10:15→17:41)
[2023-02-02] MEDS: levETIRAcetam 500 MG/5 ML ORAL SOLUTION (UNIT-DOSE CUPS) PEG SCH (10:15)
[2023-02-02 10:16] LABS: BASO % 0.9 % (0-2.0); EOS % 5.2 % (0-4.5); HEMATOCRIT 33.7 % (35.4-49); LYMPH % 36.2 % (8-40); MCH 31.9 pg (25.7-33.7); MCHC 32.8 g/dl (32.0-35.9); MEAN CELL VOLUME 97.5 fl (80-96); MEAN PLT VOLUME 8.1 fl (7.5-11.1); MONO % 10.9 % (3.8-10.2); NEUT % 46.8 % (42.8-82.8); PLATELET COUNT 341 10^3/uL (134-434); RBC 3.45 M/mm3 (4.00-5.60); RDW 15.9 % (11.9-15.9); WHITE BLOOD COUNT 6.2 K/mm3 (4.0-10.0)
[2023-02-02] MEDS: ZINC OXIDE 20% TOPICAL OINTMENT 30 GM TUBE TP SCH ×2 (10:17→22:42)
[2023-02-02 12:18] LABS: POTASSIUM 4.3 mmol/L (3.5-5.1)
[2023-02-02 12:23] LABS: ALBUMIN 3.2 g/dl (3.4-5.0); BLOOD UREA NITROGEN 14.6 mg/dL (7-18); CALCIUM 9.3 mg/dL (8.5-10.1); MAGNESIUM 2.2 mg/dL (1.8-2.4)
[2023-02-02 12:26] LABS: CREATININE 0.4 mg/dL (0.55-1.3)
[2023-02-02 12:30] LABS: BILIRUBIN,TOTAL 0.3 mg/dL (0.2-1); TOT PROT 7.4 g/dl (6.4-8.2)
[2023-02-02] MEDS: ENOXAPARIN NA (PORCINE) 40 MG/0.4 ML DISP.SYRIN SQ SCH (13:56)
[2023-02-03] MEDS: CHOLECALCIFEROL (VIT D SOLUTION) 400 UNIT/1 ML DROPS GT SCH ×2 (00:46→22:24)
[2023-02-03] MEDS: levETIRAcetam 500 MG/5 ML ORAL SOLUTION (UNIT-DOSE CUPS) PEG SCH ×3 (00:47→21:27)
[2023-02-03] MEDS: SIMETHICONE 40 MG/0.6 ML BOTTLE GT SCH ×4 (00:48→22:24)
[2023-02-03] MEDS: SENNOSIDES 8.8 MG/5 ML SYRUP GT SCH ×2 (00:48→21:27)
[2023-02-03] MEDS: BACLOFEN 10 MG TABLET (FP) GT SCH ×4 (00:49→21:27)
[2023-02-03] MEDS: BUDESONIDE 0.25 MG/2ML INH SUSP VIAL NEB SCH ×2 (07:34→20:04)
[2023-02-03] MEDS: ENOXAPARIN NA (PORCINE) 40 MG/0.4 ML DISP.SYRIN SQ SCH (09:03)
[2023-02-03 09:57] LABS: BASO % 0.6 % (0-2.0); EOS % 6.3 % (0-4.5); HEMATOCRIT 33.6 % (35.4-49); HEMOGLOBIN 11.2 GM/dL (11.7-16.9); LYMPH % 27.4 % (8-40); MCH 32.3 pg (25.7-33.7); MCHC 33.4 g/dl (32.0-35.9); MEAN CELL VOLUME 96.7 fl (80-96); MEAN PLT VOLUME 8.5 fl (7.5-11.1); MONO % 8.6 % (3.8-10.2); NEUT % 57.1 % (42.8-82.8); PLATELET COUNT 306 10^3/uL (134-434); RBC 3.48 M/mm3 (4.00-5.60); RDW 15.8 % (11.9-15.9); WHITE BLOOD COUNT 6.5 K/mm3 (4.0-10.0)
[2023-02-03 10:10] LABS: POTASSIUM 3.4 mmol/L (3.5-5.1)
[2023-02-03 10:13] LABS: ALBUMIN 3.3 g/dl (3.4-5.0); CALCIUM 8.9 mg/dL (8.5-10.1)
[2023-02-03 10:14] LABS: BLOOD UREA NITROGEN 15.1 mg/dL (7-18); MAGNESIUM 2.1 mg/dL (1.8-2.4)
[2023-02-03 10:16] LABS: CREATININE 0.5 mg/dL (0.55-1.3)
[2023-02-03 10:18] LABS: BILIRUBIN,TOTAL 0.3 mg/dL (0.2-1); TOT PROT 7.3 g/dl (6.4-8.2)
[2023-02-03] MEDS: MIDODRINE HCL 5 MG TABLET GT SCH ×3 (11:09→17:55)
[2023-02-03] MEDS: ZINC OXIDE 20% TOPICAL OINTMENT 30 GM TUBE TP SCH ×2 (11:10→22:24)
[2023-02-03] MEDS: SODIUM CHLORIDE FOR INHALATION 3 ML VIAL.NEB IH SCH ×4 (11:31→20:04)
[2023-02-03] MEDS ORDERED: POTASSIUM CHLORIDE ORAL LIQUID 20 MEQ/15 ML GT ONE (14:00)
[2023-02-04] MEDS: BACLOFEN 10 MG TABLET (FP) GT SCH ×3 (05:56→21:12)
[2023-02-04] MEDS: SIMETHICONE 40 MG/0.6 ML BOTTLE GT SCH ×3 (05:56→21:19)
[2023-02-04] MEDS: SODIUM CHLORIDE FOR INHALATION 3 ML VIAL.NEB IH SCH ×4 (07:51→20:05)
[2023-02-04] MEDS: BUDESONIDE 0.25 MG/2ML INH SUSP VIAL NEB SCH ×2 (07:51→20:05)
[2023-02-04 09:05] LABS: BASO % 0.6 % (0-2.0); EOS % 6.1 % (0-4.5); HEMOGLOBIN 11.5 GM/dL (11.7-16.9); LYMPH % 25.6 % (8-40); MCH 31.8 pg (25.7-33.7); MCHC 32.9 g/dl (32.0-35.9); MEAN CELL VOLUME 96.8 fl (80-96); MEAN PLT VOLUME 8.6 fl (7.5-11.1); MONO % 6.9 % (3.8-10.2); NEUT % 60.8 % (42.8-82.8); PLATELET COUNT 280 10^3/uL (134-434); RBC 3.62 M/mm3 (4.00-5.60); RDW 15.5 % (11.9-15.9); WHITE BLOOD COUNT 8.4 K/mm3 (4.0-10.0)
[2023-02-04 09:23] LABS: POTASSIUM 3.9 mmol/L (3.5-5.1)
[2023-02-04 09:43] LABS: CALCIUM 8.8 mg/dL (8.5-10.1)
[2023-02-04 09:44] LABS: ALBUMIN 3.4 g/dl (3.4-5.0); BLOOD UREA NITROGEN 12.6 mg/dL (7-18); MAGNESIUM 2.1 mg/dL (1.8-2.4)
[2023-02-04 09:46] LABS: CREATININE 0.6 mg/dL (0.55-1.3)
[2023-02-04 09:47] LABS: BILIRUBIN,TOTAL 0.6 mg/dL (0.2-1)
[2023-02-04 09:48] LABS: TOT PROT 7.5 g/dl (6.4-8.2)
[2023-02-04] MEDS: MIDODRINE HCL 5 MG TABLET GT SCH ×3 (10:41→18:05)
[2023-02-04] MEDS: ZINC OXIDE 20% TOPICAL OINTMENT 30 GM TUBE TP SCH ×2 (10:42→21:32)
[2023-02-04] MEDS: levETIRAcetam 500 MG/5 ML ORAL SOLUTION (UNIT-DOSE CUPS) PEG SCH ×2 (11:25→21:07)
[2023-02-04] MEDS ORDERED: oxyCODONE HCL 5 MG TABLET PO PRN ×2 (13:43→16:01)
[2023-02-04] MEDS ORDERED: ONDANSETRON 4 MG/2 ML VIAL IVPUSH PRN ×2 (13:43→16:01)
[2023-02-04] MEDS ORDERED: LACTATED RINGERS SOLUTION 1,000 ML IV SCH (13:45)
[2023-02-04] MEDS ORDERED: LIDOCAINE HCL 1%, 10 MG/ML (20ML VIAL) ONE (13:54)
[2023-02-04] MEDS ORDERED: LIDOCAINE HCL 2% JELLY 11 ML TP ONE (14:37)
[2023-02-04] MEDS ORDERED: FENTANYL CITRATE/PF 50 MCG/ML VIAL ONE ×2 (14:39→15:26)
[2023-02-04] MEDS ORDERED: ceFAZolin SODIUM 1 GM VIAL IVPB ONE (14:40)
[2023-02-04] MEDS ORDERED: LIDOCAINE HCL 1%, 10 MG/ML (20ML VIAL) INF ONE (14:41)
[2023-02-04] MEDS ORDERED: guaiFENesin 200 MG/10 ML 10 ML UNIT-DOSE CUPS GT PRN (16:01)
[2023-02-04] MEDS ORDERED: BACITRACIN ZINC 15 GM TUBE TOPICAL OINTMENT TP PRN (16:01)
[2023-02-04] MEDS ORDERED: ACETAMINOPHEN 160 MG/5 ML *Children Solution GT PRN (16:01)
[2023-02-04] MEDS ORDERED: VITAMINS A AND D TOPICAL OINTMENT 60 GM TUBE TP PRN (16:01)
[2023-02-04] MEDS ORDERED: diphenhydrAMINE HCL 12.5 MG/5 ML UNIT-DOSE CUPS GT PRN (16:01)
[2023-02-04] MEDS ORDERED: BISACODYL 10 MG SUPP.RECT PR PRN (16:01)
[2023-02-04] MEDS ORDERED: ACETAMINOPHEN 1000 MG/100 ML BAG IVPB PRN (18:15)
[2023-02-04] MEDS: LACTATED RINGERS SOLUTION 1,000 ML IV SCH (18:22)
[2023-02-04] MEDS: SENNOSIDES 8.8 MG/5 ML SYRUP GT SCH (21:12)
[2023-02-04] MEDS: CHOLECALCIFEROL (VIT D SOLUTION) 400 UNIT/1 ML DROPS GT SCH (21:19)
[2023-02-05] MEDS: BACLOFEN 10 MG TABLET (FP) GT SCH ×3 (05:27→22:53)
[2023-02-05] MEDS: SIMETHICONE 40 MG/0.6 ML BOTTLE GT SCH ×3 (05:29→23:00)
[2023-02-05] MEDS: SCOPOLAMINE HYDROBROMIDE 1 PATCH PATCH.TD72 TD SCH (06:46)
[2023-02-05] MEDS: BUDESONIDE 0.25 MG/2ML INH SUSP VIAL NEB SCH ×2 (07:30→20:31)
[2023-02-05] MEDS: SODIUM CHLORIDE FOR INHALATION 3 ML VIAL.NEB IH SCH ×4 (07:30→20:31)
[2023-02-05] MEDS: ZINC OXIDE 20% TOPICAL OINTMENT 30 GM TUBE TP SCH ×2 (10:52→23:03)
[2023-02-05] MEDS: MIDODRINE HCL 5 MG TABLET GT SCH ×3 (10:52→17:47)
[2023-02-05] MEDS: levETIRAcetam 500 MG/5 ML ORAL SOLUTION (UNIT-DOSE CUPS) PEG SCH ×2 (10:52→22:52)
[2023-02-05 10:53] LABS: BASO % 0.3 % (0-2.0); EOS % 5.7 % (0-4.5); HEMOGLOBIN 9.8 GM/dL (11.7-16.9); LYMPH % 26.8 % (8-40); MCH 32.7 pg (25.7-33.7); MCHC 33.8 g/dl (32.0-35.9); MEAN CELL VOLUME 96.9 fl (80-96); MEAN PLT VOLUME 8.6 fl (7.5-11.1); MONO % 10.7 % (3.8-10.2); NEUT % 56.5 % (42.8-82.8); PLATELET COUNT 237 10^3/uL (134-434); RDW 15.7 % (11.9-15.9); WHITE BLOOD COUNT 6.1 K/mm3 (4.0-10.0)
[2023-02-05 11:10] LABS: POTASSIUM 3.6 mmol/L (3.5-5.1)
[2023-02-05 11:15] LABS: BLOOD UREA NITROGEN 10.8 mg/dL (7-18); CALCIUM 8.3 mg/dL (8.5-10.1)
[2023-02-05 11:16] LABS: MAGNESIUM 1.8 mg/dL (1.8-2.4)
[2023-02-05 11:18] LABS: CREATININE 0.4 mg/dL (0.55-1.3)
[2023-02-05 11:20] LABS: BILIRUBIN,TOTAL 0.5 mg/dL (0.2-1); TOT PROT 6.6 g/dl (6.4-8.2)
[2023-02-05] MEDS: LACTATED RINGERS SOLUTION 1,000 ML IV SCH (17:44)
[2023-02-05] MEDS: SENNOSIDES 8.8 MG/5 ML SYRUP GT SCH (22:58)
[2023-02-05] MEDS: CHOLECALCIFEROL (VIT D SOLUTION) 400 UNIT/1 ML DROPS GT SCH (23:01)
[2023-02-06] MEDS: BACLOFEN 10 MG TABLET (FP) GT SCH ×3 (06:46→23:02)
[2023-02-06] MEDS: SIMETHICONE 40 MG/0.6 ML BOTTLE GT SCH ×3 (06:49→23:04)
[2023-02-06] MEDS: SODIUM CHLORIDE FOR INHALATION 3 ML VIAL.NEB IH SCH ×4 (07:30→21:29)
[2023-02-06] MEDS: BUDESONIDE 0.25 MG/2ML INH SUSP VIAL NEB SCH ×2 (07:30→21:28)
[2023-02-06] MEDS: ENOXAPARIN NA (PORCINE) 40 MG/0.4 ML DISP.SYRIN SQ SCH (09:39)
[2023-02-06] MEDS: levETIRAcetam 500 MG/5 ML ORAL SOLUTION (UNIT-DOSE CUPS) PEG SCH ×2 (09:39→23:01)
[2023-02-06] MEDS: MIDODRINE HCL 5 MG TABLET GT SCH ×3 (09:39→17:38)
[2023-02-06 09:44] LABS: BASO % 0.4 % (0-2.0); EOS % 7.2 % (0-4.5); HEMATOCRIT 27.2 % (35.4-49); HEMOGLOBIN 9.2 GM/dL (11.7-16.9); MCH 32.2 pg (25.7-33.7); MCHC 33.7 g/dl (32.0-35.9); MEAN CELL VOLUME 95.4 fl (80-96); MEAN PLT VOLUME 8.4 fl (7.5-11.1); MONO % 10.7 % (3.8-10.2); NEUT % 54.7 % (42.8-82.8); PLATELET COUNT 200 10^3/uL (134-434); RBC 2.85 M/mm3 (4.00-5.60); RDW 15.6 % (11.9-15.9); WHITE BLOOD COUNT 5.6 K/mm3 (4.0-10.0)
[2023-02-06 09:54] LABS: POTASSIUM 3.4 mmol/L (3.5-5.1)
[2023-02-06 10:06] LABS: ALBUMIN 2.8 g/dl (3.4-5.0); BLOOD UREA NITROGEN 7.7 mg/dL (7-18)
[2023-02-06 10:07] LABS: CALCIUM 8.4 mg/dL (8.5-10.1); MAGNESIUM 1.8 mg/dL (1.8-2.4)
[2023-02-06 10:09] LABS: CREATININE 0.4 mg/dL (0.55-1.3)
[2023-02-06 10:11] LABS: BILIRUBIN,TOTAL 0.5 mg/dL (0.2-1); TOT PROT 6.1 g/dl (6.4-8.2)
[2023-02-06] MEDS: ZINC OXIDE 20% TOPICAL OINTMENT 30 GM TUBE TP SCH ×2 (11:11→23:05)
[2023-02-06] MEDS ORDERED: MAGNESIUM OXIDE 400 MG TABLET (FP) GT ONE (11:15)
[2023-02-06] MEDS ORDERED: POTASSIUM CHLORIDE ORAL LIQUID 20 MEQ/15 ML GT ONE (11:15)
[2023-02-06] MEDS: LACTATED RINGERS SOLUTION 1,000 ML IV SCH (17:39)
[2023-02-06] MEDS: SENNOSIDES 8.8 MG/5 ML SYRUP GT SCH (23:04)
[2023-02-06] MEDS: CHOLECALCIFEROL (VIT D SOLUTION) 400 UNIT/1 ML DROPS GT SCH (23:05)
[2023-02-07] MEDS: BACLOFEN 10 MG TABLET (FP) GT SCH ×3 (07:11→21:41)
[2023-02-07] MEDS: SIMETHICONE 40 MG/0.6 ML BOTTLE GT SCH ×3 (07:12→21:41)
[2023-02-07] MEDS: SODIUM CHLORIDE FOR INHALATION 3 ML VIAL.NEB IH SCH ×4 (07:34→20:46)
[2023-02-07] MEDS: BUDESONIDE 0.25 MG/2ML INH SUSP VIAL NEB SCH ×2 (07:34→20:46)
[2023-02-07] MEDS: levETIRAcetam 500 MG/5 ML ORAL SOLUTION (UNIT-DOSE CUPS) PEG SCH ×2 (12:50→21:41)
[2023-02-07] MEDS: ENOXAPARIN NA (PORCINE) 40 MG/0.4 ML DISP.SYRIN SQ SCH (12:50)
[2023-02-07] MEDS: ZINC OXIDE 20% TOPICAL OINTMENT 30 GM TUBE TP SCH ×2 (12:51→21:42)
[2023-02-07] MEDS: MIDODRINE HCL 5 MG TABLET GT SCH ×3 (12:51→19:12)
[2023-02-07] MEDS: LACTATED RINGERS SOLUTION 1,000 ML IV SCH (19:08)
[2023-02-07] MEDS: SENNOSIDES 8.8 MG/5 ML SYRUP GT SCH (21:41)
[2023-02-07] MEDS: CHOLECALCIFEROL (VIT D SOLUTION) 400 UNIT/1 ML DROPS GT SCH (21:41)
[2023-02-08] MEDS: BACLOFEN 10 MG TABLET (FP) GT SCH ×2 (06:30→14:27)
[2023-02-08] MEDS: SIMETHICONE 40 MG/0.6 ML BOTTLE GT SCH ×2 (06:31→14:27)
[2023-02-08] MEDS: SCOPOLAMINE HYDROBROMIDE 1 PATCH PATCH.TD72 TD SCH (06:59)
[2023-02-08] MEDS: BUDESONIDE 0.25 MG/2ML INH SUSP VIAL NEB SCH (08:45)
[2023-02-08] MEDS: SODIUM CHLORIDE FOR INHALATION 3 ML VIAL.NEB IH SCH ×3 (08:48→16:07)
[2023-02-08] MEDS: ENOXAPARIN NA (PORCINE) 40 MG/0.4 ML DISP.SYRIN SQ SCH (09:35)
[2023-02-08] MEDS: levETIRAcetam 500 MG/5 ML ORAL SOLUTION (UNIT-DOSE CUPS) PEG SCH (09:35)
[2023-02-08] MEDS: MIDODRINE HCL 5 MG TABLET GT SCH ×3 (09:36→17:54)
[2023-02-08] MEDS: ZINC OXIDE 20% TOPICAL OINTMENT 30 GM TUBE TP SCH (09:37)
[2023-02-08 09:51] LABS: BASO % 0.5 % (0-2.0); EOS % 9.9 % (0-4.5); HEMATOCRIT 28.8 % (35.4-49); HEMOGLOBIN 9.8 GM/dL (11.7-16.9); MCH 32.6 pg (25.7-33.7); MEAN PLT VOLUME 8.2 fl (7.5-11.1); MONO % 10.1 % (3.8-10.2); NEUT % 51.5 % (42.8-82.8); PLATELET COUNT 215 10^3/uL (134-434); RDW 15.3 % (11.9-15.9); WHITE BLOOD COUNT 4.9 K/mm3 (4.0-10.0)
[2023-02-08 10:13] LABS: POTASSIUM 3.4 mmol/L (3.5-5.1)
[2023-02-08 10:16] LABS: CALCIUM 8.7 mg/dL (8.5-10.1)
[2023-02-08 10:17] LABS: BLOOD UREA NITROGEN 8.1 mg/dL (7-18); MAGNESIUM 1.7 mg/dL (1.8-2.4)
[2023-02-08 10:18] LABS: ALBUMIN 2.9 g/dl (3.4-5.0)
[2023-02-08 10:21] LABS: BILIRUBIN,TOTAL 0.3 mg/dL (0.2-1); TOT PROT 6.7 g/dl (6.4-8.2)
[2023-02-08 10:33] LABS: CREATININE 0.3 mg/dL (0.55-1.3)
[2023-02-08] MEDS ORDERED: ACETAMINOPHEN 650 MG/20.3 ML ORAL SOLUTION (CUPS) GT PRN (11:12)
[2023-02-08] MEDS ORDERED: POTASSIUM CHLORIDE ORAL LIQUID 20 MEQ/15 ML GT ONE (11:30)
[2023-02-08] MEDS ORDERED: MAGNESIUM OXIDE 400 MG TABLET (FP) GT ONE (11:45)
[2023-02-08] MEDS: LACTATED RINGERS SOLUTION 1,000 ML IV SCH (17:54)
[2023-02-08 18:00] VITALS: BP 117/55; PULSE 56; RESP 20; TEMP 97.9
== END 2023-02-08 18:54 | DRG 177 ==
LOC: JER 02:30 → JERBED 07:33 → J2W 12:56 → J8W 02-01 23:27
PROVIDERS: ADMIT Internal Medicine; ATTEND Nurse Practitioner Acute Care
PROC: 0T9B80Z Drainage of Bladder with Drainage Device, Via Natural or Artificial Opening Endoscopic (ICD-10-PCS; 2023-02-04)
PROC: 0TPBX0Z Removal of Drainage Device from Bladder, External Approach (ICD-10-PCS; 2023-02-04)
PROC: 0WHR8YZ Insertion of Other Device into Genitourinary Tract, Via Natural or Artificial Opening Endoscopic (ICD-10-PCS; principal; 2023-02-04 14:00)
DX: J69.0 Pneumonitis due to inhalation of food and vomit (principal); A41.9 Sepsis, unspecified organism; J96.21 Acute and chronic respiratory failure with hypoxia; R53.2 Functional quadriplegia; E87.20 Acidosis, unspecified; F73 Profound intellectual disabilities; R56.9 Unspecified convulsions; G80.9 Cerebral palsy, unspecified; Z93.1 Gastrostomy status; Z93.0 Tracheostomy status; Q02 Microcephaly; D64.9 Anemia, unspecified; R33.9 Retention of urine, unspecified; K59.00 Constipation, unspecified
CPT/HCPCS: 0241U-QW; 36415; 36600; 71045-TC-FY; 76775-TC; 80048; 80053; 81003; 82550; 82553; 82803; 82962; 83605; 83735; 83880; 84100; 84484; 85025; 85027; 85045; 85610; 85730; 86850; 86900; 86901; 87040; 87070; 87081; 87086; 87186; 87205; 87324; 87449; 87633; 87635; 93005; 93010; 94640; 94760; 99285-25; J0475

== ENCOUNTER 2023-02-16 08:55 | Inpatient (IN) | payer OTHER ==
[2023-02-16] MEDS ORDERED: VANCOMYCIN 1,000 MG in DEXTROSE 5%-WATER - 250 ML IVPB ONE (11:28)
[2023-02-16] MEDS ORDERED: SODIUM CHLORIDE 0.9% 500 ML INFUS.BAG IV ONE (11:28)
[2023-02-16] MEDS ORDERED: PIPERACILLIN/TAZOB 3.375 GM 3.375 GM in DEXTROSE 5%-WATER - 50 ML IVPB ONE (11:29)
[2023-02-16] MEDS ORDERED: PIPERACILLIN/TAZOB 3.375 GM 3.375 GM/50 ML BAG IVPB ONE (11:35)
[2023-02-16 11:47] LABS: VENOUS BASE EXCESS 9.6 mmol/L (-2-2); VENOUS O2 SATURATION 98.4 % (70-80); VENOUS PCO2 53.9 mmHg (38-52); VENOUS PH 7.433 (7.310-7.410)
[2023-02-16 12:01] LABS: BASO % 0.2 % (0-2.0); EOS % 15.5 % (0-4.5); HEMATOCRIT 27.4 % (35.4-49); HEMOGLOBIN 9.1 GM/dL (11.7-16.9); MCHC 33.3 g/dl (32.0-35.9); MEAN PLT VOLUME 8.3 fl (7.5-11.1); NEUT % 64.3 % (42.8-82.8); PLATELET COUNT 361 10^3/uL (134-434); RBC 2.86 M/mm3 (4.00-5.60); RDW 15.4 % (11.9-15.9); WHITE BLOOD COUNT 8.7 K/mm3 (4.0-10.0)
[2023-02-16] MEDS ORDERED: VANCOMYCIN 1 GRAM (PRE-DOCKED) 1,000 MG/250 ML BAG IVPB ONE (12:15)
[2023-02-16 12:34] LABS: CALCIUM 9.3 mg/dL (8.5-10.1)
[2023-02-16 12:36] LABS: ALBUMIN 3.1 g/dl (3.4-5.0); BLOOD UREA NITROGEN 11.8 mg/dL (7-18); MAGNESIUM 2.3 mg/dL (1.8-2.4)
[2023-02-16 12:39] LABS: CREATININE 0.3 mg/dL (0.55-1.3)
[2023-02-16] MEDS ORDERED: POTASSIUM PHOSPHATE 30 MM in DEXTROSE 5%-WATER - 250 ML IVPB ONE (12:39)
[2023-02-16 12:40] LABS: BILIRUBIN,TOTAL 0.2 mg/dL (0.2-1)
[2023-02-16 12:41] LABS: TOT PROT 6.8 g/dl (6.4-8.2)
[2023-02-16 12:44] LABS: N-TERMINAL BNP 100.5 pg/ml (5-125)
[2023-02-16] MEDS ORDERED: POTASSIUM PHOSPHATE 30 MM in DEXTROSE 5%-WATER - 500 ML IVPB ONE (13:00)
[2023-02-16] MEDS ORDERED: PIPERACILLIN/TAZOB 4.5 GM 4.5 GM/100 ML BAG IVPB ONE (20:08)
[2023-02-16] MEDS ORDERED: BISACODYL 10 MG SUPP.RECT PR PRN (20:32)
[2023-02-16] MEDS ORDERED: ALBUTEROL SO4 2.5/IPRATROPIUM 0.5 INH SOL 3 ML VIAL.NEB. NEB PRN (20:32)
[2023-02-16] MEDS ORDERED: BACITRACIN ZINC 15 GM TUBE TOPICAL OINTMENT TP PRN (20:32)
[2023-02-16] MEDS ORDERED: PIPERACILLIN/TAZOB 4.5 GM 4.5 GM in DEXTROSE 5%-WATER 100 ML IVPB SCH (21:00)
[2023-02-16] MEDS: PIPERACILLIN/TAZOB 4.5 GM 4.5 GM in DEXTROSE 5%-WATER 100 ML IVPB SCH (21:50)
[2023-02-16] MEDS ORDERED: ALBUTEROL SO4 2.5/IPRATROPIUM 0.5 INH SOL 3 ML VIAL.NEB. NEB ONE (22:52)
[2023-02-16] MEDS ORDERED: levETIRAcetam 500 MG/5 ML INJECTION VIAL IVPB ONE (22:53)
[2023-02-16] MEDS: ALBUTEROL SO4 2.5/IPRATROPIUM 0.5 INH SOL 3 ML VIAL.NEB. NEB SCH (23:06)
[2023-02-16] MEDS: ZINC OXIDE 20% TOPICAL OINTMENT 30 GM TUBE TP SCH (23:06)
[2023-02-16] MEDS: levETIRAcetam 500 MG/5 ML INJECTION VIAL IVPB SCH (23:06)
[2023-02-17 05:51] LABS: EPI CELLS 1 /uL (0-25.1); HYALINE CASTS 0 /uL (0-3.1); URINE APPEARANCE CLEAR; URINE BACTERIA 321 /uL (0-1359); URINE BILIRUBIN NEGATIVE (NEGATIVE); URINE COLOR YELLOW; URINE GLUCOSE (UA) NEGATIVE (NEGATIVE); URINE KETONE NEGATIVE (NEGATIVE); URINE LEUK ESTERASE 2+ (NEGATIVE); URINE NITRITE NEGATIVE (NEGATIVE); URINE PROTEIN 1+ (NEGATIVE); URINE RBC 20 /uL (0-23.9); URINE UROBILINOGEN 0.2 mg/dL (0.2-1.0); URINE WBC 1005 /uL (0-25.8)
[2023-02-17 06:55] LABS: YEAST NONE SEEN (NEGATIVE)
[2023-02-17] MEDS ORDERED: PIPERACILLIN/TAZOB 4.5 GM 4.5 GM/100 ML BAG IVPB ONE (07:07)
[2023-02-17] MEDS: PIPERACILLIN/TAZOB 4.5 GM 4.5 GM in DEXTROSE 5%-WATER 100 ML IVPB SCH ×2 (07:16→11:19)
[2023-02-17 07:23] LABS: HEMATOCRIT 26.1 % (35.4-49); HEMOGLOBIN 8.6 GM/dL (11.7-16.9); MCH 31.9 pg (25.7-33.7); MCHC 32.9 g/dl (32.0-35.9); MEAN CELL VOLUME 96.9 fl (80-96); MEAN PLT VOLUME 8.1 fl (7.5-11.1); PLATELET COUNT 358 10^3/uL (134-434); RDW 16.1 % (11.9-15.9); WHITE BLOOD COUNT 6.1 K/mm3 (4.0-10.0)
[2023-02-17 07:45] LABS: POTASSIUM 3.8 mmol/L (3.5-5.1)
[2023-02-17 07:51] LABS: ALBUMIN 2.7 g/dl (3.4-5.0); MAGNESIUM 2.3 mg/dL (1.8-2.4)
[2023-02-17 07:55] LABS: CREATININE 0.5 mg/dL (0.55-1.3); PHOSPHOROUS 3.9 mg/dL (2.5-4.9)
[2023-02-17 07:56] LABS: BILIRUBIN,TOTAL 0.5 mg/dL (0.2-1); TOT PROT 6.2 g/dl (6.4-8.2)
[2023-02-17 08:07] LABS: CALCIUM 7.9 mg/dL (8.5-10.1)
[2023-02-17] MEDS: ALBUTEROL SO4 2.5/IPRATROPIUM 0.5 INH SOL 3 ML VIAL.NEB. NEB SCH ×2 (08:54→20:30)
[2023-02-17] MEDS: ENOXAPARIN NA (PORCINE) 40 MG/0.4 ML DISP.SYRIN SQ SCH (09:11)
[2023-02-17] MEDS: levETIRAcetam 500 MG/5 ML INJECTION VIAL IVPB SCH ×2 (09:11→22:53)
[2023-02-17] MEDS: ZINC OXIDE 20% TOPICAL OINTMENT 30 GM TUBE TP SCH ×2 (09:11→22:59)
[2023-02-17 09:40] LABS: ANISOCYTOSIS 0; HELMET CELLS 0; HOWELL-JOLLY BODIES 0; MACROCYTOSIS 0; OVALOCYTE 0; ROULEAU 0; SICKELED CELLS 0; TARGET CELLS 0; TEAR DROP CELLS 0; TOXIC GRANULATION 0
[2023-02-17] MEDS: PIPERACILLIN/TAZOB 3.375 GM 3.375 GM in DEXTROSE 5%-WATER - 50 ML IVPB SCH (19:29)
[2023-02-18] MEDS: PIPERACILLIN/TAZOB 3.375 GM 3.375 GM in DEXTROSE 5%-WATER - 50 ML IVPB SCH ×3 (02:57→17:11)
[2023-02-18 08:35] LABS: HEMATOCRIT 26.9 % (35.4-49); MCH 32.2 pg (25.7-33.7); MCHC 33.7 g/dl (32.0-35.9); MEAN CELL VOLUME 95.6 fl (80-96); MEAN PLT VOLUME 7.6 fl (7.5-11.1); PLATELET COUNT 333 10^3/uL (134-434); RBC 2.81 M/mm3 (4.00-5.60); RDW 15.8 % (11.9-15.9); WHITE BLOOD COUNT 5.2 K/mm3 (4.0-10.0)
[2023-02-18 08:58] LABS: POTASSIUM 3.6 mmol/L (3.5-5.1)
[2023-02-18 09:07] LABS: CALCIUM 8.3 mg/dL (8.5-10.1)
[2023-02-18 09:08] LABS: ALBUMIN 2.8 g/dl (3.4-5.0); BLOOD UREA NITROGEN 7.9 mg/dL (7-18)
[2023-02-18 09:10] LABS: CREATININE 0.4 mg/dL (0.55-1.3)
[2023-02-18 09:12] LABS: BILIRUBIN,TOTAL 0.4 mg/dL (0.2-1); TOT PROT 6.4 g/dl (6.4-8.2)
[2023-02-18] MEDS: ENOXAPARIN NA (PORCINE) 40 MG/0.4 ML DISP.SYRIN SQ SCH (10:23)
[2023-02-18] MEDS: methylPREDNISolone NA SUCC 40 MG/1 ML VIAL IVPUSH SCH ×2 (10:27→17:11)
[2023-02-18] MEDS: ALBUTEROL SO4 2.5/IPRATROPIUM 0.5 INH SOL 3 ML VIAL.NEB. NEB SCH ×3 (11:20→19:50)
[2023-02-18] MEDS: levETIRAcetam 500 MG/5 ML INJECTION VIAL IVPB SCH ×2 (11:32→22:15)
[2023-02-18 11:50] LABS: ANISOCYTOSIS 1+; MACROCYTOSIS 0
[2023-02-18] MEDS: ZINC OXIDE 20% TOPICAL OINTMENT 30 GM TUBE TP SCH ×2 (15:04→22:16)
[2023-02-19] MEDS: methylPREDNISolone NA SUCC 40 MG/1 ML VIAL IVPUSH SCH ×3 (03:01→17:27)
[2023-02-19] MEDS: ALBUTEROL SO4 2.5/IPRATROPIUM 0.5 INH SOL 3 ML VIAL.NEB. NEB SCH ×4 (07:24→20:19)
[2023-02-19] MEDS: levETIRAcetam 500 MG/5 ML INJECTION VIAL IVPB SCH ×2 (09:13→21:42)
[2023-02-19] MEDS: ENOXAPARIN NA (PORCINE) 40 MG/0.4 ML DISP.SYRIN SQ SCH (09:13)
[2023-02-19] MEDS: ZINC OXIDE 20% TOPICAL OINTMENT 30 GM TUBE TP SCH ×2 (10:09→21:43)
[2023-02-19 11:31] LABS: HEMATOCRIT 28.3 % (35.4-49); HEMOGLOBIN 9.3 GM/dL (11.7-16.9); MCH 31.8 pg (25.7-33.7); MCHC 32.8 g/dl (32.0-35.9); MEAN PLT VOLUME 8.1 fl (7.5-11.1); PLATELET COUNT 450 10^3/uL (134-434); RBC 2.92 M/mm3 (4.00-5.60); RDW 16.5 % (11.9-15.9); WHITE BLOOD COUNT 4.8 K/mm3 (4.0-10.0)
[2023-02-19 11:58] LABS: POTASSIUM 4.1 mmol/L (3.5-5.1)
[2023-02-19 11:59] LABS: CALCIUM 8.4 mg/dL (8.5-10.1)
[2023-02-19 12:00] LABS: BLOOD UREA NITROGEN 15.4 mg/dL (7-18); MAGNESIUM 2.3 mg/dL (1.8-2.4)
[2023-02-19 12:03] LABS: CREATININE 0.5 mg/dL (0.55-1.3); PHOSPHOROUS 2.4 mg/dL (2.5-4.9)
[2023-02-19] MEDS ORDERED: NAPH,MB-DB/K PH,MBDB POWDER PACKET PO ONE (16:29)
[2023-02-19] MEDS ORDERED: SODIUM CHLORIDE 1,000 ML IV SCH (17:15)
[2023-02-19] MEDS: SCOPOLAMINE HYDROBROMIDE 1 PATCH PATCH.TD72 TD SCH (17:27)
[2023-02-19] MEDS: POLYETHYLENE GLYCOL (HEALTHYLAX) 3350 17 GM PACKET GT SCH (21:42)
[2023-02-19] MEDS: SENNOSIDES 8.8 MG/5 ML SYRUP GT SCH (21:43)
[2023-02-20] MEDS: methylPREDNISolone NA SUCC 40 MG/1 ML VIAL IVPUSH SCH ×3 (01:14→17:24)
[2023-02-20] MEDS: ALBUTEROL SO4 2.5/IPRATROPIUM 0.5 INH SOL 3 ML VIAL.NEB. NEB SCH ×4 (07:45→20:31)
[2023-02-20] MEDS: ENOXAPARIN NA (PORCINE) 40 MG/0.4 ML DISP.SYRIN SQ SCH (09:36)
[2023-02-20] MEDS: levETIRAcetam 500 MG/5 ML INJECTION VIAL IVPB SCH ×2 (09:36→21:25)
[2023-02-20] MEDS: SIMETHICONE 40 MG/0.6 ML BOTTLE GT PRN (09:36)
[2023-02-20] MEDS: POLYETHYLENE GLYCOL (HEALTHYLAX) 3350 17 GM PACKET GT SCH ×2 (09:36→21:24)
[2023-02-20] MEDS: ZINC OXIDE 20% TOPICAL OINTMENT 30 GM TUBE TP SCH ×2 (09:38→21:28)
[2023-02-20 10:02] LABS: HEMATOCRIT 27.1 % (35.4-49); HEMOGLOBIN 9.1 GM/dL (11.7-16.9); MCH 32.2 pg (25.7-33.7); MCHC 33.6 g/dl (32.0-35.9); MEAN CELL VOLUME 95.6 fl (80-96); MEAN PLT VOLUME 7.7 fl (7.5-11.1); PLATELET COUNT 409 10^3/uL (134-434); RBC 2.83 M/mm3 (4.00-5.60); RDW 16.1 % (11.9-15.9); WHITE BLOOD COUNT 2.7 K/mm3 (4.0-10.0)
[2023-02-20 10:19] LABS: POTASSIUM 3.7 mmol/L (3.5-5.1)
[2023-02-20 10:34] VITALS: RESP 18
[2023-02-20 10:35] LABS: ALBUMIN 2.8 g/dl (3.4-5.0); BLOOD UREA NITROGEN 14.7 mg/dL (7-18); CALCIUM 8.3 mg/dL (8.5-10.1); MAGNESIUM 1.9 mg/dL (1.8-2.4)
[2023-02-20 10:38] LABS: CREATININE 0.4 mg/dL (0.55-1.3)
[2023-02-20 10:39] LABS: BILIRUBIN,TOTAL 0.2 mg/dL (0.2-1); TOT PROT 6.5 g/dl (6.4-8.2)
[2023-02-20 10:45] LABS: TOTAL IRON BINDING CAPACITY 218 ug/dL (250-450)
[2023-02-20 10:46] LABS: IRON SERUM 61 ug/dL (50-175)
[2023-02-20] MEDS ORDERED: NAPH,MB-DB/K PH,MBDB POWDER PACKET GT ONE (15:00)
[2023-02-20] MEDS: SENNOSIDES 8.8 MG/5 ML SYRUP GT SCH (21:25)
[2023-02-21] MEDS: methylPREDNISolone NA SUCC 40 MG/1 ML VIAL IVPUSH SCH ×3 (01:40→17:04)
[2023-02-21] MEDS: ALBUTEROL SO4 2.5/IPRATROPIUM 0.5 INH SOL 3 ML VIAL.NEB. NEB SCH ×4 (07:35→20:30)
[2023-02-21 09:27] LABS: HEMATOCRIT 30.9 % (35.4-49); MCH 31.6 pg (25.7-33.7); MCHC 32.5 g/dl (32.0-35.9); MEAN CELL VOLUME 97.1 fl (80-96); MEAN PLT VOLUME 7.9 fl (7.5-11.1); PLATELET COUNT 519 10^3/uL (134-434); RBC 3.18 M/mm3 (4.00-5.60); RDW 15.4 % (11.9-15.9); WHITE BLOOD COUNT 8.5 K/mm3 (4.0-10.0)
[2023-02-21] MEDS: ENOXAPARIN NA (PORCINE) 40 MG/0.4 ML DISP.SYRIN SQ SCH (09:38)
[2023-02-21] MEDS: POLYETHYLENE GLYCOL (HEALTHYLAX) 3350 17 GM PACKET GT SCH ×2 (09:38→21:26)
[2023-02-21 09:59] LABS: ALBUMIN 3.2 g/dl (3.4-5.0); CALCIUM 8.9 mg/dL (8.5-10.1)
[2023-02-21 10:02] LABS: CREATININE 0.5 mg/dL (0.55-1.3)
[2023-02-21 10:03] LABS: BILIRUBIN,TOTAL 0.5 mg/dL (0.2-1); PHOSPHOROUS 1.6 mg/dL (2.5-4.9); TOT PROT 7.2 g/dl (6.4-8.2)
[2023-02-21] MEDS: levETIRAcetam 500 MG/5 ML INJECTION VIAL IVPB SCH ×2 (10:13→21:26)
[2023-02-21] MEDS: ZINC OXIDE 20% TOPICAL OINTMENT 30 GM TUBE TP SCH ×2 (10:21→21:33)
[2023-02-21] MEDS: SIMETHICONE 40 MG/0.6 ML BOTTLE GT PRN (21:26)
[2023-02-21] MEDS: SENNOSIDES 8.8 MG/5 ML SYRUP GT SCH (21:28)
[2023-02-22] MEDS: ALBUTEROL SO4 2.5/IPRATROPIUM 0.5 INH SOL 3 ML VIAL.NEB. NEB SCH ×4 (07:14→19:44)
[2023-02-22 10:11] LABS: INR 1.01 (0.83-1.09); PROTHROMBIN TIME (PATIENT) 11.7 SEC (9.7-13.0)
[2023-02-22 10:14] LABS: ACTIVATED PTT 30.7 SECONDS (25.2-36.5)
[2023-02-22 10:32] LABS: BLOOD UREA NITROGEN 16.6 mg/dL (7-18)
[2023-02-22 10:34] LABS: ALBUMIN 3.3 g/dl (3.4-5.0); CALCIUM 9.2 mg/dL (8.5-10.1)
[2023-02-22 10:37] LABS: CREATININE 0.5 mg/dL (0.55-1.3); PHOSPHOROUS 2.7 mg/dL (2.5-4.9); TOT PROT 7.1 g/dl (6.4-8.2)
[2023-02-22 10:38] LABS: BILIRUBIN,TOTAL 0.8 mg/dL (0.2-1)
[2023-02-22] MEDS: POLYETHYLENE GLYCOL (HEALTHYLAX) 3350 17 GM PACKET GT SCH ×2 (10:42→21:43)
[2023-02-22] MEDS: levETIRAcetam 500 MG/5 ML INJECTION VIAL IVPB SCH ×2 (10:42→21:43)
[2023-02-22] MEDS: ENOXAPARIN NA (PORCINE) 40 MG/0.4 ML DISP.SYRIN SQ SCH (10:42)
[2023-02-22] MEDS: ZINC OXIDE 20% TOPICAL OINTMENT 30 GM TUBE TP SCH ×2 (10:43→21:43)
[2023-02-22 12:30] LABS: HEMATOCRIT 29.4 % (35.4-49); HEMOGLOBIN 9.7 GM/dL (11.7-16.9); MCH 31.7 pg (25.7-33.7); MEAN CELL VOLUME 96.1 fl (80-96); MEAN PLT VOLUME 7.8 fl (7.5-11.1); PLATELET COUNT 480 10^3/uL (134-434); RBC 3.06 M/mm3 (4.00-5.60); RDW 16.1 % (11.9-15.9); WHITE BLOOD COUNT 8.3 K/mm3 (4.0-10.0)
[2023-02-22 15:50] VITALS: BMI 18.1
[2023-02-22] MEDS: SCOPOLAMINE HYDROBROMIDE 1 PATCH PATCH.TD72 TD SCH (16:26)
[2023-02-22] MEDS ORDERED: IVERMECTIN 3 MG TABLET PO ONE ×2 (17:22)
[2023-02-22] MEDS: SENNOSIDES 8.8 MG/5 ML SYRUP GT SCH (21:43)
[2023-02-23] MEDS ORDERED: MINERAL OIL ENEMA 133 ML ENEMA RC ONE (08:15)
[2023-02-23] MEDS: ALBUTEROL SO4 2.5/IPRATROPIUM 0.5 INH SOL 3 ML VIAL.NEB. NEB SCH ×4 (08:50→19:58)
[2023-02-23 09:21] LABS: HEMATOCRIT 33.9 % (35.4-49); HEMOGLOBIN 11.4 GM/dL (11.7-16.9); MCH 32.1 pg (25.7-33.7); MCHC 33.6 g/dl (32.0-35.9); MEAN CELL VOLUME 95.6 fl (80-96); MEAN PLT VOLUME 7.6 fl (7.5-11.1); PLATELET COUNT 574 10^3/uL (134-434); RBC 3.55 M/mm3 (4.00-5.60); RDW 15.6 % (11.9-15.9); WHITE BLOOD COUNT 7.8 K/mm3 (4.0-10.0)
[2023-02-23 09:43] LABS: POTASSIUM 4.4 mmol/L (3.5-5.1)
[2023-02-23 09:52] LABS: CALCIUM 9.4 mg/dL (8.5-10.1)
[2023-02-23 09:53] LABS: ALBUMIN 3.4 g/dl (3.4-5.0); BLOOD UREA NITROGEN 17.6 mg/dL (7-18); MAGNESIUM 2.2 mg/dL (1.8-2.4)
[2023-02-23 09:56] LABS: CREATININE 0.4 mg/dL (0.55-1.3); PHOSPHOROUS 4.8 mg/dL (2.5-4.9)
[2023-02-23 09:57] LABS: BILIRUBIN,TOTAL 0.6 mg/dL (0.2-1); TOT PROT 7.3 g/dl (6.4-8.2)
[2023-02-23] MEDS: ENOXAPARIN NA (PORCINE) 40 MG/0.4 ML DISP.SYRIN SQ SCH (10:35)
[2023-02-23] MEDS: levETIRAcetam 500 MG/5 ML INJECTION VIAL IVPB SCH (10:36)
[2023-02-23] MEDS: POLYETHYLENE GLYCOL (HEALTHYLAX) 3350 17 GM PACKET GT SCH (10:36)
[2023-02-23] MEDS ORDERED: IVERMECTIN 3 MG TABLET PO ONE (13:15)
[2023-02-23] MEDS: ZINC OXIDE 20% TOPICAL OINTMENT 30 GM TUBE TP SCH (13:19)
[2023-02-23 21:54] VITALS: BP 124/90; PULSE 108; TEMP 97.6
== END 2023-02-23 09:30 | disposition home or self-care (01) | DRG 189 ==
LOC: JER 08:55 → JERBED 11:29 → J6S 02-17 17:47
PROVIDERS: ADMIT Internal Medicine; ATTEND Internal Medicine
DX: J96.21 Acute and chronic respiratory failure with hypoxia (principal); R53.2 Functional quadriplegia; J98.11 Atelectasis; K56.7 Ileus, unspecified; F73 Profound intellectual disabilities; G40.909 Epilepsy, unspecified, not intractable, without status epilepticus; Z93.1 Gastrostomy status; Z93.0 Tracheostomy status; G80.9 Cerebral palsy, unspecified; R91.1 Solitary pulmonary nodule; D64.9 Anemia, unspecified; Q02 Microcephaly; M41.9 Scoliosis, unspecified; N30.80 Other cystitis without hematuria; K59.00 Constipation, unspecified; D72.10 Eosinophilia, unspecified; E86.0 Dehydration; G47.30 Sleep apnea, unspecified; R62.50 Unspecified lack of expected normal physiological development in childhood; J98.01 Acute bronchospasm
CPT/HCPCS: 0241U-QW; 36415; 71045-TC-FY; 71260-TC; 74019-TC-FY; 74177-TC; 80048; 80053; 81003; 82272; 82803; 82962; 83540; 83550; 83605; 83735; 83880; 84100; 85025; 85027; 85610; 85730; 86682; 87040; 87086; 87209; 87633; 87635; 93005; 93010; 94640; 99291

== ENCOUNTER 2023-03-31 13:24 | Emergency (ER) | payer OTHER ==
[2023-03-31 14:08] VITALS: BMI 24.6
[2023-03-31 21:25] VITALS: BP 125/75; PULSE 78; RESP 17; TEMP 98
== END 2023-04-01 01:47 | disposition home or self-care (01) ==
LOC: JER 13:24
DX: R09.89 Other specified symptoms and signs involving the circulatory and respiratory systems (principal); Z20.822 Contact with and (suspected) exposure to COVID-19
CPT/HCPCS: 0241U-QW; 71045-TC-FY; 99284-25

== ENCOUNTER 2023-04-03 08:42 | Inpatient (IN) | payer OTHER ==
[2023-04-03] MEDS ORDERED: SODIUM CHLORIDE FOR INHALATION 3 ML VIAL.NEB IH ONE (09:13)
[2023-04-03 09:24] VITALS: BMI 29.1
[2023-04-03] MEDS ORDERED: VANCOMYCIN 1,000 MG in DEXTROSE 5%-WATER - 250 ML IVPB ONE (09:54)
[2023-04-03] MEDS ORDERED: PIPERACILLIN/TAZOB 4.5 GM 4.5 GM in DEXTROSE 5%-WATER 100 ML IVPB ONE (09:55)
[2023-04-03] MEDS ORDERED: AZITHROMYCIN IVPB 500 MG in DEXTROSE 5%-WATER - 250 ML IVPB ONE (09:55)
[2023-04-03] MEDS ORDERED: PIPERACILLIN/TAZOB 4.5 GM 4.5 GM/100 ML BAG IVPB ONE ×2 (09:58→19:49)
[2023-04-03] MEDS ORDERED: AZITHROMYCIN IVPB 500 MG/250 ML BAG IVPB ONE (10:00)
[2023-04-03] MEDS ORDERED: VANCOMYCIN 1 GRAM (PRE-DOCKED) 1,000 MG/250 ML BAG IVPB ONE (10:00)
[2023-04-03 10:15] LABS: HEMOGLOBIN 8.2 GM/dL (11.7-16.9); MCH 30.6 pg (25.7-33.7); MCHC 32.9 g/dl (32.0-35.9); MEAN CELL VOLUME 92.8 fl (80-96); MEAN PLT VOLUME 9.5 fl (7.5-11.1); RBC 2.69 M/mm3 (4.00-5.60); RDW 16.5 % (11.9-15.9); WHITE BLOOD COUNT 7.6 K/mm3 (4.0-10.0)
[2023-04-03 10:28] LABS: PLATELET COUNT 15 10^3/uL (134-434)
[2023-04-03 10:34] LABS: VENOUS BASE EXCESS 7.7 mmol/L (-2-2); VENOUS O2 SATURATION 91.4 % (70-80); VENOUS PCO2 52.4 mmHg (38-52); VENOUS PH 7.42 (7.310-7.410)
[2023-04-03 10:39] LABS: POTASSIUM 4.2 mmol/L (3.5-5.1)
[2023-04-03 10:42] LABS: ALBUMIN 2.2 g/dl (3.4-5.0); BLOOD UREA NITROGEN 30.1 mg/dL (7-18); CALCIUM 9.2 mg/dL (8.5-10.1)
[2023-04-03 10:45] LABS: CREATININE 0.7 mg/dL (0.55-1.3)
[2023-04-03 10:47] LABS: BILIRUBIN,TOTAL 0.7 mg/dL (0.2-1); TOT PROT 6.1 g/dl (6.4-8.2)
[2023-04-03 10:56] LABS: INR 1.06 (0.83-1.09); PROTHROMBIN TIME (PATIENT) 12.3 SEC (9.7-13.0)
[2023-04-03 10:59] LABS: ACTIVATED PTT 48.7 SECONDS (25.2-36.5)
[2023-04-03 11:02] LABS: LACTIC ACID 2.7 mmol/L (0.4-2.0)
[2023-04-03 11:03] LABS: HEMATOCRIT 23.2 % (35.4-49); HEMOGLOBIN 7.8 GM/dL (11.7-16.9); MCH 31.4 pg (25.7-33.7); MCHC 33.6 g/dl (32.0-35.9); MEAN CELL VOLUME 93.5 fl (80-96); MEAN PLT VOLUME 8.8 fl (7.5-11.1); RBC 2.48 M/mm3 (4.00-5.60); RDW 16.2 % (11.9-15.9); WHITE BLOOD COUNT 6.2 K/mm3 (4.0-10.0)
[2023-04-03 11:07] LABS: PLATELET COUNT 14 10^3/uL (134-434)
[2023-04-03 11:22] LABS: PLATELET ESTIMATE DECREASED
[2023-04-03 12:20] LABS: ANISOCYTOSIS 1+; MACROCYTOSIS 0; OVALOCYTE 2+; TEAR DROP CELLS 2+; TOXIC GRANULATION 2+
[2023-04-03 14:10] LABS: ANISOCYTOSIS 2+; MACROCYTOSIS 0; TEAR DROP CELLS 2+
[2023-04-03] MEDS ORDERED: PIPERACILLIN/TAZOB 4.5 GM 4.5 GM in DEXTROSE 5%-WATER 100 ML IVPB SCH (18:00)
[2023-04-03] MEDS: PIPERACILLIN/TAZOB 4.5 GM 4.5 GM in DEXTROSE 5%-WATER 100 ML IVPB SCH (20:17)
[2023-04-03] MEDS ORDERED: VANCOMYCIN 500 MG in DEXTROSE 5%-WATER - 100 ML IVPB SCH (22:00)
[2023-04-03] MEDS ORDERED: VANCOMYCIN 500 MG VIAL (RESTRICTED TO ID ONLY) ONE (22:41)
[2023-04-03] MEDS: VANCOMYCIN 500 MG in DEXTROSE 5%-WATER 100 ML IVPB SCH (22:54)
[2023-04-03] MEDS ORDERED: BACITRACIN ZINC 15 GM TUBE TOPICAL OINTMENT TP PRN (23:51)
[2023-04-03] MEDS ORDERED: ALBUTEROL SO4 2.5/IPRATROPIUM 0.5 INH SOL 3 ML VIAL.NEB. NEB PRN (23:51)
[2023-04-03] MEDS ORDERED: SIMETHICONE 40 MG/0.6 ML BOTTLE GT PRN (23:51)
[2023-04-03] MEDS ORDERED: ACETAMINOPHEN 650 MG/20.3 ML ORAL SOLUTION (CUPS) GT PRN (23:51)
[2023-04-03] MEDS ORDERED: diphenhydrAMINE HCL 12.5 MG/5 ML UNIT-DOSE CUPS GT PRN (23:51)
[2023-04-03] MEDS ORDERED: guaiFENesin 200 MG/10 ML 10 ML UNIT-DOSE CUPS GT PRN (23:51)
[2023-04-03] MEDS ORDERED: BISACODYL 10 MG SUPP.RECT PR PRN (23:51)
[2023-04-04] MEDS ORDERED: SODIUM CHLORIDE 1,000 ML IV STA (00:06)
[2023-04-04] MEDS: SODIUM CHLORIDE 1,000 ML IV SCH (01:21)
[2023-04-04] MEDS ORDERED: PIPERACILLIN/TAZOB 4.5 GM 4.5 GM/100 ML BAG IVPB ONE ×2 (02:49→09:23)
[2023-04-04] MEDS: PIPERACILLIN/TAZOB 4.5 GM 4.5 GM in DEXTROSE 5%-WATER 100 ML IVPB SCH ×2 (03:03→09:55)
[2023-04-04] MEDS ORDERED: BACLOFEN 10 MG TABLET (FP) ONE (05:27)
[2023-04-04] MEDS: BACLOFEN 10 MG TABLET (FP) GT SCH ×3 (05:30→23:31)
[2023-04-04] MEDS ORDERED: ALBUTEROL SO4 2.5/IPRATROPIUM 0.5 INH SOL 3 ML VIAL.NEB. NEB SCH (08:00)
[2023-04-04 08:40] LABS: HEMATOCRIT 22.5 % (35.4-49); HEMOGLOBIN 7.6 GM/dL (11.7-16.9); MCH 31.3 pg (25.7-33.7); MCHC 33.7 g/dl (32.0-35.9); MEAN PLT VOLUME 9.5 fl (7.5-11.1); RBC 2.42 M/mm3 (4.00-5.60); RDW 16.3 % (11.9-15.9); WHITE BLOOD COUNT 5.4 K/mm3 (4.0-10.0)
[2023-04-04 08:54] LABS: POTASSIUM 3.4 mmol/L (3.5-5.1)
[2023-04-04 08:58] LABS: CALCIUM 9.2 mg/dL (8.5-10.1)
[2023-04-04 08:59] LABS: MAGNESIUM 2.1 mg/dL (1.8-2.4)
[2023-04-04 09:01] LABS: BLOOD UREA NITROGEN 19.4 mg/dL (7-18)
[2023-04-04 09:02] LABS: PHOSPHOROUS 2.4 mg/dL (2.5-4.9)
[2023-04-04 09:04] LABS: CREATININE 0.5 mg/dL (0.55-1.3)
[2023-04-04 09:05] LABS: PLATELET COUNT 12 10^3/uL (134-434)
[2023-04-04] MEDS: POLYETHYLENE GLYCOL (HEALTHYLAX) 3350 17 GM PACKET GT SCH ×2 (09:54→23:31)
[2023-04-04] MEDS: MIDODRINE HCL 2.5 MG TABLET GT SCH ×3 (09:55→17:14)
[2023-04-04] MEDS: SCOPOLAMINE HYDROBROMIDE 1 PATCH PATCH.TD72 TD SCH (09:55)
[2023-04-04] MEDS: levETIRAcetam 500 MG/5 ML ORAL SOLUTION (UNIT-DOSE CUPS) PEG SCH ×2 (09:55→23:31)
[2023-04-04] MEDS ORDERED: PATIENT'S OWN MEDICATION (NON-FORMULARY) (Linaclotide [Linzess] 145 MCG Capsule) PO SCH (10:00)
[2023-04-04] MEDS: BUDESONIDE 0.25 MG/2ML INH SUSP VIAL NEB SCH ×2 (10:30→20:00)
[2023-04-04 10:49] LABS: ANISOCYTOSIS 0; HELMET CELLS 0; HOWELL-JOLLY BODIES 0; MACROCYTOSIS 0; OVALOCYTE 0; ROULEAU 0; SICKELED CELLS 0; TARGET CELLS 0; TEAR DROP CELLS 0; TOXIC GRANULATION 0
[2023-04-04 11:02] LABS: INR 1.01 (0.83-1.09); PROTHROMBIN TIME (PATIENT) 11.7 SEC (9.7-13.0)
[2023-04-04 11:05] LABS: ACTIVATED PTT 45.6 SECONDS (25.2-36.5)
[2023-04-04] MEDS: ZINC OXIDE 20% TOPICAL OINTMENT 30 GM TUBE TP SCH ×2 (11:05→23:32)
[2023-04-04 11:08] LABS: URINE APPEARANCE CLEAR; URINE BILIRUBIN NEGATIVE (NEGATIVE); URINE COLOR YELLOW; URINE GLUCOSE (UA) NEGATIVE (NEGATIVE); URINE KETONE NEGATIVE (NEGATIVE); URINE LEUK ESTERASE NEGATIVE (NEGATIVE); URINE NITRITE NEGATIVE (NEGATIVE); URINE PROTEIN TRACE (NEGATIVE); URINE UROBILINOGEN 0.2 mg/dL (0.2-1.0)
[2023-04-04] MEDS ORDERED: VANCOMYCIN 500 MG VIAL (RESTRICTED TO ID ONLY) ONE (11:19)
[2023-04-04] MEDS ORDERED: methylPREDNISolone NA SUCC 40 MG/1 ML VIAL ONE (11:22)
[2023-04-04] MEDS: ALBUTEROL SO4 2.5/IPRATROPIUM 0.5 INH SOL 3 ML VIAL.NEB. NEB SCH ×3 (11:42→20:31)
[2023-04-04] MEDS: methylPREDNISolone NA SUCC 40 MG/1 ML VIAL IVPUSH SCH (11:42)
[2023-04-04] MEDS: VANCOMYCIN 500 MG in DEXTROSE 5%-WATER 100 ML IVPB SCH (11:42)
[2023-04-04] MEDS ORDERED: MAG HYDROX/AL HYDROX/SIMETH 30 ML UNIT-DOSE CUP ONE (13:36)
[2023-04-04] MEDS: MAG HYDROX/AL HYDROX/SIMETH 30 ML UNIT-DOSE CUP GT SCH ×2 (13:48→23:31)
[2023-04-04] MEDS ORDERED: POTASSIUM CHLORIDE ORAL LIQUID 20 MEQ/15 ML ONE (15:20)
[2023-04-04] MEDS ORDERED: POTASSIUM CHLORIDE ORAL LIQUID 20 MEQ/15 ML PO ONE (15:30)
[2023-04-04] MEDS ORDERED: ALBUTEROL SO4 2.5/IPRATROPIUM 0.5 INH SOL 3 ML VIAL.NEB. NEB ONE (16:44)
[2023-04-04] MEDS ORDERED: VANCOMYCIN 1,000 MG in DEXTROSE 5%-WATER - 250 ML IVPB SCH (18:45)
[2023-04-04] MEDS: PIPERACILLIN/TAZOB 3.375 GM 3.375 GM in DEXTROSE 5%-WATER - 50 ML IVPB SCH (19:29)
[2023-04-04] MEDS ORDERED: VANCOMYCIN 1 GRAM (PRE-DOCKED) 1,000 MG/250 ML BAG IVPB ONE (19:48)
[2023-04-04] MEDS ORDERED: PIPERACILLIN/TAZOB 3.375 GM 3.375 GM/50 ML BAG IVPB ONE (19:48)
[2023-04-04] MEDS: VANCOMYCIN/WATER FOR INJ (PEG) 1,000 MG/200 ML BAG IVPB SCH (20:20)
[2023-04-04 21:19] LABS: BASO % 0.6 % (0-2.0); EOS % 0.1 % (0-4.5); HEMATOCRIT 22.1 % (35.4-49); HEMOGLOBIN 7.2 GM/dL (11.7-16.9); LYMPH % 10.9 % (8-40); MCH 30.3 pg (25.7-33.7); MCHC 32.7 g/dl (32.0-35.9); MEAN CELL VOLUME 92.7 fl (80-96); MEAN PLT VOLUME 9.5 fl (7.5-11.1); MONO % 2.6 % (3.8-10.2); NEUT % 85.8 % (42.8-82.8); RBC 2.38 M/mm3 (4.00-5.60); RDW 16.5 % (11.9-15.9); WHITE BLOOD COUNT 2.8 K/mm3 (4.0-10.0)
[2023-04-04 21:22] LABS: PLATELET COUNT 14 10^3/uL (134-434)
[2023-04-04 21:26] LABS: INR 0.98 (0.83-1.09); PROTHROMBIN TIME (PATIENT) 11.4 SEC (9.7-13.0)
[2023-04-04] MEDS: SENNOSIDES 8.8 MG/5 ML SYRUP GT SCH (23:31)
[2023-04-05] MEDS ORDERED: PIPERACILLIN/TAZOB 3.375 GM 3.375 GM/50 ML BAG IVPB ONE ×3 (01:53→21:52)
[2023-04-05] MEDS: SODIUM CHLORIDE 1,000 ML IV SCH (02:41)
[2023-04-05] MEDS: PIPERACILLIN/TAZOB 3.375 GM 3.375 GM in DEXTROSE 5%-WATER - 50 ML IVPB SCH ×3 (02:41→22:10)
[2023-04-05] MEDS ORDERED: MAG HYDROX/AL HYDROX/SIMETH 30 ML UNIT-DOSE CUP ONE ×3 (06:17→21:02)
[2023-04-05] MEDS ORDERED: BACLOFEN 10 MG TABLET (FP) ONE (06:17)
[2023-04-05] MEDS ORDERED: VANCOMYCIN 1 GRAM (PRE-DOCKED) 1,000 MG/250 ML BAG IVPB ONE ×3 (06:17→22:12)
[2023-04-05] MEDS: VANCOMYCIN/WATER FOR INJ (PEG) 1,000 MG/200 ML BAG IVPB SCH ×2 (06:49→22:19)
[2023-04-05] MEDS: BACLOFEN 10 MG TABLET (FP) GT SCH ×3 (06:49→21:48)
[2023-04-05] MEDS: MAG HYDROX/AL HYDROX/SIMETH 30 ML UNIT-DOSE CUP GT SCH ×3 (06:49→21:48)
[2023-04-05 08:32] LABS: BASO % 0.3 % (0-2.0); HEMATOCRIT 20.3 % (35.4-49); LYMPH % 11.6 % (8-40); MCH 30.1 pg (25.7-33.7); MCHC 32.6 g/dl (32.0-35.9); MEAN CELL VOLUME 92.4 fl (80-96); MEAN PLT VOLUME 9.9 fl (7.5-11.1); MONO % 7.6 % (3.8-10.2); NEUT % 80.5 % (42.8-82.8); RDW 16.4 % (11.9-15.9); WHITE BLOOD COUNT 3.7 K/mm3 (4.0-10.0)
[2023-04-05 08:34] LABS: HEMOGLOBIN 6.6 GM/dL (11.7-16.9); PLATELET COUNT 16 10^3/uL (134-434)
[2023-04-05 08:41] LABS: POTASSIUM 3.8 mmol/L (3.5-5.1)
[2023-04-05 08:46] LABS: CALCIUM 9.1 mg/dL (8.5-10.1)
[2023-04-05 08:47] LABS: BLOOD UREA NITROGEN 15.2 mg/dL (7-18); MAGNESIUM 2.1 mg/dL (1.8-2.4)
[2023-04-05 08:50] LABS: CREATININE 0.5 mg/dL (0.55-1.3); PHOSPHOROUS 3.1 mg/dL (2.5-4.9)
[2023-04-05 08:51] LABS: BILIRUBIN,TOTAL 0.6 mg/dL (0.2-1); TOT PROT 5.5 g/dl (6.4-8.2)
[2023-04-05] MEDS: MIDODRINE HCL 2.5 MG TABLET GT SCH ×3 (09:18→18:49)
[2023-04-05] MEDS: methylPREDNISolone NA SUCC 40 MG/1 ML VIAL IVPUSH SCH (09:18)
[2023-04-05] MEDS: ALBUTEROL SO4 2.5/IPRATROPIUM 0.5 INH SOL 3 ML VIAL.NEB. NEB SCH ×4 (09:18→20:15)
[2023-04-05] MEDS: ZINC OXIDE 20% TOPICAL OINTMENT 30 GM TUBE TP SCH ×2 (09:18→21:48)
[2023-04-05] MEDS: POLYETHYLENE GLYCOL (HEALTHYLAX) 3350 17 GM PACKET GT SCH ×2 (09:18→21:48)
[2023-04-05] MEDS: levETIRAcetam 500 MG/5 ML ORAL SOLUTION (UNIT-DOSE CUPS) PEG SCH ×2 (09:18→21:48)
[2023-04-05] MEDS: BUDESONIDE 0.25 MG/2ML INH SUSP VIAL NEB SCH ×2 (09:18→20:16)
[2023-04-05] MEDS ORDERED: ALBUTEROL SO4 2.5/IPRATROPIUM 0.5 INH SOL 3 ML VIAL.NEB. NEB ONE ×2 (16:30→19:44)
[2023-04-05] MEDS ORDERED: MIDODRINE HCL 5 MG TABLET ONE (18:48)
[2023-04-05] MEDS ORDERED: SENNOSIDES 8.6MG TABLET (FP) PO ONE ×2 (21:02)
[2023-04-05] MEDS: SENNOSIDES 8.8 MG/5 ML SYRUP GT SCH (21:48)
[2023-04-06] MEDS: SODIUM CHLORIDE 1,000 ML IV SCH (00:15)
[2023-04-06] MEDS: MAG HYDROX/AL HYDROX/SIMETH 30 ML UNIT-DOSE CUP GT SCH ×3 (05:31→22:21)
[2023-04-06] MEDS: PIPERACILLIN/TAZOB 3.375 GM 3.375 GM in DEXTROSE 5%-WATER - 50 ML IVPB SCH ×5 (05:31→22:20)
[2023-04-06] MEDS: BACLOFEN 10 MG TABLET (FP) GT SCH ×3 (05:32→22:22)
[2023-04-06] MEDS ORDERED: DEXTROSE 50%-WATER 25 GM/50 ML DISP.SYRIN IVPUSH ONE (05:44)
[2023-04-06] MEDS: DEXTROSE 5%-0.45% SALINE 1,000 ML IV SCH (06:16)
[2023-04-06 08:02] LABS: HEMATOCRIT 26.1 % (35.4-49); HEMOGLOBIN 8.9 GM/dL (11.7-16.9); MCH 30.6 pg (25.7-33.7); MCHC 34.2 g/dl (32.0-35.9); MEAN CELL VOLUME 89.7 fl (80-96); MEAN PLT VOLUME 9.3 fl (7.5-11.1); PLATELET COUNT 94 10^3/uL (134-434); RBC 2.91 M/mm3 (4.00-5.60); RDW 16.6 % (11.9-15.9); WHITE BLOOD COUNT 5.5 K/mm3 (4.0-10.0)
[2023-04-06] MEDS: BUDESONIDE 0.25 MG/2ML INH SUSP VIAL NEB SCH ×2 (08:20→19:35)
[2023-04-06] MEDS: ALBUTEROL SO4 2.5/IPRATROPIUM 0.5 INH SOL 3 ML VIAL.NEB. NEB SCH ×4 (08:20→19:35)
[2023-04-06 08:32] LABS: CHLORIDE 110 mmol/L (98-107); SODIUM 144 mmol/L (136-145)
[2023-04-06 08:40] LABS: CALCIUM 9.3 mg/dL (8.5-10.1)
[2023-04-06 08:41] LABS: BLOOD UREA NITROGEN 17.2 mg/dL (7-18); CO2 29 mmol/L (21-32); GLUCOSE,RANDOM 186 mg/dL (74-106); MAGNESIUM 1.8 mg/dL (1.8-2.4)
[2023-04-06 08:44] LABS: CREATININE 0.6 mg/dL (0.55-1.3); SGOT/AST 93 U/L (15-37); SGPT/ALT 109 U/L (13-61)
[2023-04-06 08:45] LABS: BILIRUBIN,TOTAL 0.7 mg/dL (0.2-1)
[2023-04-06 08:46] LABS: ALK PHOS 406 U/L (45-117)
[2023-04-06 08:48] LABS: TOT PROT 5.4 g/dl (6.4-8.2)
[2023-04-06 09:06] LABS: ANION GAP 5 mmol/L (4-13); POTASSIUM 2.9 mmol/L (3.5-5.1)
[2023-04-06] MEDS: methylPREDNISolone NA SUCC 40 MG/1 ML VIAL IVPUSH SCH (09:42)
[2023-04-06] MEDS: MIDODRINE HCL 2.5 MG TABLET GT SCH ×3 (09:43→17:26)
[2023-04-06] MEDS: levETIRAcetam 500 MG/5 ML ORAL SOLUTION (UNIT-DOSE CUPS) PEG SCH ×2 (09:43→22:22)
[2023-04-06] MEDS: POLYETHYLENE GLYCOL (HEALTHYLAX) 3350 17 GM PACKET GT SCH ×2 (09:43→22:20)
[2023-04-06] MEDS: KCL 10 MEQ IVPB 10 MEQ/100 ML INFUS.BAG IVPB SCH ×3 (09:46→12:06)
[2023-04-06] MEDS ORDERED: VANCOMYCIN/WATER FOR INJ (PEG) 1,000 MG/200 ML BAG IVPB SCH (10:00)
[2023-04-06] MEDS: ZINC OXIDE 20% TOPICAL OINTMENT 30 GM TUBE TP SCH ×2 (10:55→23:03)
[2023-04-06] MEDS: SENNOSIDES 8.8 MG/5 ML SYRUP GT SCH (22:21)
[2023-04-07] MEDS: MAG HYDROX/AL HYDROX/SIMETH 30 ML UNIT-DOSE CUP GT SCH ×3 (05:19→22:09)
[2023-04-07] MEDS: BACLOFEN 10 MG TABLET (FP) GT SCH ×3 (05:20→22:10)
[2023-04-07] MEDS: PIPERACILLIN/TAZOB 3.375 GM 3.375 GM in DEXTROSE 5%-WATER - 50 ML IVPB SCH ×3 (05:20→22:10)
[2023-04-07] MEDS: DEXTROSE 5%-0.45% SALINE 1,000 ML IV SCH (05:37)
[2023-04-07] MEDS: ALBUTEROL SO4 2.5/IPRATROPIUM 0.5 INH SOL 3 ML VIAL.NEB. NEB SCH ×4 (08:00→20:05)
[2023-04-07] MEDS: BUDESONIDE 0.25 MG/2ML INH SUSP VIAL NEB SCH ×2 (08:00→20:05)
[2023-04-07 09:45] LABS: HEMATOCRIT 27.4 % (35.4-49); HEMOGLOBIN 9.2 GM/dL (11.7-16.9); MCH 30.1 pg (25.7-33.7); MCHC 33.6 g/dl (32.0-35.9); MEAN CELL VOLUME 89.6 fl (80-96); MEAN PLT VOLUME 9.1 fl (7.5-11.1); PLATELET COUNT 119 10^3/uL (134-434); RBC 3.06 M/mm3 (4.00-5.60); RDW 16.2 % (11.9-15.9); WHITE BLOOD COUNT 3.5 K/mm3 (4.0-10.0)
[2023-04-07] MEDS: levETIRAcetam 500 MG/5 ML ORAL SOLUTION (UNIT-DOSE CUPS) PEG SCH ×2 (09:58→22:11)
[2023-04-07] MEDS: methylPREDNISolone NA SUCC 40 MG/1 ML VIAL IVPUSH SCH (10:01)
[2023-04-07] MEDS: MIDODRINE HCL 2.5 MG TABLET GT SCH ×3 (10:02→18:10)
[2023-04-07] MEDS: ZINC OXIDE 20% TOPICAL OINTMENT 30 GM TUBE TP SCH ×2 (10:03→22:11)
[2023-04-07] MEDS: SCOPOLAMINE HYDROBROMIDE 1 PATCH PATCH.TD72 TD SCH (10:03)
[2023-04-07] MEDS: POLYETHYLENE GLYCOL (HEALTHYLAX) 3350 17 GM PACKET GT SCH ×2 (10:03→22:11)
[2023-04-07 10:10] LABS: POTASSIUM 3.1 mmol/L (3.5-5.1)
[2023-04-07 10:21] LABS: ALBUMIN 2.2 g/dl (3.4-5.0); BLOOD UREA NITROGEN 13.7 mg/dL (7-18); CALCIUM 9.2 mg/dL (8.5-10.1)
[2023-04-07 10:23] LABS: CREATININE 0.5 mg/dL (0.55-1.3); PHOSPHOROUS 3.3 mg/dL (2.5-4.9)
[2023-04-07 10:24] LABS: TOT PROT 5.7 g/dl (6.4-8.2)
[2023-04-07 10:26] LABS: BILIRUBIN,TOTAL 0.7 mg/dL (0.2-1)
[2023-04-07] MEDS ORDERED: POTASSIUM CHLORIDE ORAL LIQUID 20 MEQ/15 ML GT ONE (15:57)
[2023-04-07] MEDS: VANCOMYCIN/WATER FOR INJ (PEG) 1,000 MG/200 ML BAG IVPB SCH (19:52)
[2023-04-07] MEDS ORDERED: VANCOMYCIN/WATER FOR INJ (PEG) 1,000 MG/200 ML BAG IVPB SCH (20:00)
[2023-04-07] MEDS: SENNOSIDES 8.8 MG/5 ML SYRUP GT SCH (22:11)
[2023-04-08] MEDS: PIPERACILLIN/TAZOB 3.375 GM 3.375 GM in DEXTROSE 5%-WATER - 50 ML IVPB SCH ×3 (05:21→22:17)
[2023-04-08] MEDS: MAG HYDROX/AL HYDROX/SIMETH 30 ML UNIT-DOSE CUP GT SCH ×3 (05:21→22:16)
[2023-04-08] MEDS: BACLOFEN 10 MG TABLET (FP) GT SCH ×3 (05:21→22:16)
[2023-04-08 07:29] LABS: HEMATOCRIT 27.4 % (35.4-49); HEMOGLOBIN 9.3 GM/dL (11.7-16.9); MCH 30.6 pg (25.7-33.7); MCHC 33.8 g/dl (32.0-35.9); MEAN CELL VOLUME 90.4 fl (80-96); MEAN PLT VOLUME 9.5 fl (7.5-11.1); PLATELET COUNT 180 10^3/uL (134-434); RBC 3.03 M/mm3 (4.00-5.60); RDW 16.3 % (11.9-15.9); WHITE BLOOD COUNT 5.4 K/mm3 (4.0-10.0)
[2023-04-08 07:35] LABS: POTASSIUM 3.4 mmol/L (3.5-5.1)
[2023-04-08] MEDS ORDERED: KCL 10 MEQ IVPB 10 MEQ/100 ML INFUS.BAG IVPB SCH (08:00)
[2023-04-08 08:01] LABS: CALCIUM 8.8 mg/dL (8.5-10.1)
[2023-04-08 08:02] LABS: ALBUMIN 2.2 g/dl (3.4-5.0); BLOOD UREA NITROGEN 16.3 mg/dL (7-18); MAGNESIUM 1.9 mg/dL (1.8-2.4)
[2023-04-08 08:05] LABS: CREATININE 0.5 mg/dL (0.55-1.3); PHOSPHOROUS 3.5 mg/dL (2.5-4.9)
[2023-04-08 08:06] LABS: BILIRUBIN,TOTAL 0.4 mg/dL (0.2-1)
[2023-04-08 08:07] LABS: TOT PROT 5.8 g/dl (6.4-8.2)
[2023-04-08] MEDS: BUDESONIDE 0.25 MG/2ML INH SUSP VIAL NEB SCH ×2 (09:00→20:30)
[2023-04-08] MEDS: ALBUTEROL SO4 2.5/IPRATROPIUM 0.5 INH SOL 3 ML VIAL.NEB. NEB SCH ×4 (09:39→20:25)
[2023-04-08] MEDS: levETIRAcetam 500 MG/5 ML ORAL SOLUTION (UNIT-DOSE CUPS) PEG SCH ×2 (11:35→22:16)
[2023-04-08] MEDS: POLYETHYLENE GLYCOL (HEALTHYLAX) 3350 17 GM PACKET GT SCH ×2 (11:36→22:17)
[2023-04-08] MEDS: methylPREDNISolone NA SUCC 40 MG/1 ML VIAL IVPUSH SCH ×2 (11:37→12:39)
[2023-04-08] MEDS: MIDODRINE HCL 2.5 MG TABLET GT SCH ×3 (11:37→18:40)
[2023-04-08] MEDS: ZINC OXIDE 20% TOPICAL OINTMENT 30 GM TUBE TP SCH ×2 (11:38→22:17)
[2023-04-08] MEDS: POTASSIUM CHLORIDE ORAL LIQUID 20 MEQ/15 ML GT ONE ×2 (11:43→12:15)
[2023-04-08] MEDS: VANCOMYCIN/WATER FOR INJ (PEG) 1,000 MG/200 ML BAG IVPB SCH (20:38)
[2023-04-08] MEDS: SENNOSIDES 8.8 MG/5 ML SYRUP GT SCH (22:17)
[2023-04-09] MEDS ORDERED: POTASSIUM CHLORIDE ORAL LIQUID 20 MEQ/15 ML PO ONE (05:36)
[2023-04-09] MEDS: BACLOFEN 10 MG TABLET (FP) GT SCH ×3 (06:06→21:42)
[2023-04-09] MEDS: MAG HYDROX/AL HYDROX/SIMETH 30 ML UNIT-DOSE CUP GT SCH ×3 (06:06→21:35)
[2023-04-09] MEDS: PIPERACILLIN/TAZOB 3.375 GM 3.375 GM in DEXTROSE 5%-WATER - 50 ML IVPB SCH ×2 (06:06→14:54)
[2023-04-09 08:12] LABS: HEMATOCRIT 27.8 % (35.4-49); HEMOGLOBIN 9.3 GM/dL (11.7-16.9); MCH 30.4 pg (25.7-33.7); MCHC 33.5 g/dl (32.0-35.9); MEAN CELL VOLUME 90.9 fl (80-96); MEAN PLT VOLUME 9.6 fl (7.5-11.1); PLATELET COUNT 234 10^3/uL (134-434); RBC 3.05 M/mm3 (4.00-5.60); RDW 15.9 % (11.9-15.9); WHITE BLOOD COUNT 5.6 K/mm3 (4.0-10.0)
[2023-04-09 08:22] LABS: POTASSIUM 4.8 mmol/L (3.5-5.1)
[2023-04-09 08:26] LABS: ALBUMIN 2.3 g/dl (3.4-5.0); BLOOD UREA NITROGEN 12.6 mg/dL (7-18); CALCIUM 8.7 mg/dL (8.5-10.1); MAGNESIUM 1.9 mg/dL (1.8-2.4)
[2023-04-09 08:29] LABS: CREATININE 0.5 mg/dL (0.55-1.3); PHOSPHOROUS 2.8 mg/dL (2.5-4.9)
[2023-04-09 08:31] LABS: BILIRUBIN,TOTAL 0.3 mg/dL (0.2-1); TOT PROT 5.9 g/dl (6.4-8.2)
[2023-04-09] MEDS: ALBUTEROL SO4 2.5/IPRATROPIUM 0.5 INH SOL 3 ML VIAL.NEB. NEB SCH ×4 (08:55→20:15)
[2023-04-09] MEDS: BUDESONIDE 0.25 MG/2ML INH SUSP VIAL NEB SCH ×2 (08:56→20:41)
[2023-04-09] MEDS: levETIRAcetam 500 MG/5 ML ORAL SOLUTION (UNIT-DOSE CUPS) PEG SCH ×2 (09:39→21:34)
[2023-04-09] MEDS: predniSONE 20 MG TABLET (UD) GT SCH (09:40)
[2023-04-09] MEDS: POLYETHYLENE GLYCOL (HEALTHYLAX) 3350 17 GM PACKET GT SCH ×2 (09:40→21:34)
[2023-04-09] MEDS: ZINC OXIDE 20% TOPICAL OINTMENT 30 GM TUBE TP SCH ×2 (09:41→21:39)
[2023-04-09] MEDS: MIDODRINE HCL 2.5 MG TABLET GT SCH ×3 (09:41→17:09)
[2023-04-09] MEDS: SENNOSIDES 8.8 MG/5 ML SYRUP GT SCH (21:35)
[2023-04-10] MEDS: MAG HYDROX/AL HYDROX/SIMETH 30 ML UNIT-DOSE CUP GT SCH ×3 (05:37→21:47)
[2023-04-10] MEDS: BACLOFEN 10 MG TABLET (FP) GT SCH ×3 (05:39→21:48)
[2023-04-10] MEDS: ALBUTEROL SO4 2.5/IPRATROPIUM 0.5 INH SOL 3 ML VIAL.NEB. NEB SCH ×4 (08:00→20:15)
[2023-04-10] MEDS: BUDESONIDE 0.25 MG/2ML INH SUSP VIAL NEB SCH ×2 (08:05→20:15)
[2023-04-10 08:27] LABS: HEMATOCRIT 32.1 % (35.4-49); HEMOGLOBIN 10.6 GM/dL (11.7-16.9); MCH 30.2 pg (25.7-33.7); MCHC 33.2 g/dl (32.0-35.9); MEAN PLT VOLUME 9.3 fl (7.5-11.1); PLATELET COUNT 401 10^3/uL (134-434); RBC 3.52 M/mm3 (4.00-5.60); RDW 15.5 % (11.9-15.9); WHITE BLOOD COUNT 5.3 K/mm3 (4.0-10.0)
[2023-04-10 08:51] LABS: ALBUMIN 2.6 g/dl (3.4-5.0); BLOOD UREA NITROGEN 13.5 mg/dL (7-18); CALCIUM 9.7 mg/dL (8.5-10.1)
[2023-04-10 08:52] LABS: MAGNESIUM 2.2 mg/dL (1.8-2.4)
[2023-04-10 08:54] LABS: CREATININE 0.5 mg/dL (0.55-1.3)
[2023-04-10 08:55] LABS: BILIRUBIN,TOTAL 0.3 mg/dL (0.2-1); PHOSPHOROUS 2.6 mg/dL (2.5-4.9)
[2023-04-10 08:56] LABS: TOT PROT 6.8 g/dl (6.4-8.2)
[2023-04-10] MEDS: POLYETHYLENE GLYCOL (HEALTHYLAX) 3350 17 GM PACKET GT SCH ×2 (09:59→21:48)
[2023-04-10] MEDS: levETIRAcetam 500 MG/5 ML ORAL SOLUTION (UNIT-DOSE CUPS) PEG SCH ×2 (09:59→21:47)
[2023-04-10] MEDS: SCOPOLAMINE HYDROBROMIDE 1 PATCH PATCH.TD72 TD SCH (10:00)
[2023-04-10] MEDS: predniSONE 20 MG TABLET (UD) GT SCH (10:00)
[2023-04-10] MEDS: ZINC OXIDE 20% TOPICAL OINTMENT 30 GM TUBE TP SCH ×2 (10:00→21:48)
[2023-04-10] MEDS ORDERED: predniSONE 10 MG TABLET (UD) GT SCH (16:07)
[2023-04-10] MEDS: MIDODRINE HCL 2.5 MG TABLET GT SCH ×2 (17:26→18:01)
[2023-04-10] MEDS: SENNOSIDES 8.8 MG/5 ML SYRUP GT SCH (21:47)
[2023-04-10] MEDS: HEPARIN NA (PORCINE) 5,000 UNITS/ML 1ML VIAL SQ SCH (21:47)
[2023-04-11] MEDS: HEPARIN NA (PORCINE) 5,000 UNITS/ML 1ML VIAL SQ SCH ×3 (05:17→22:17)
[2023-04-11] MEDS: BACLOFEN 10 MG TABLET (FP) GT SCH ×3 (05:18→23:05)
[2023-04-11] MEDS: MAG HYDROX/AL HYDROX/SIMETH 30 ML UNIT-DOSE CUP GT SCH ×3 (05:18→22:17)
[2023-04-11] MEDS: BUDESONIDE 0.25 MG/2ML INH SUSP VIAL NEB SCH ×2 (07:25→21:23)
[2023-04-11] MEDS: ALBUTEROL SO4 2.5/IPRATROPIUM 0.5 INH SOL 3 ML VIAL.NEB. NEB SCH ×4 (07:25→21:23)
[2023-04-11 07:47] LABS: POTASSIUM 3.7 mmol/L (3.5-5.1)
[2023-04-11 07:55] LABS: CALCIUM 9.1 mg/dL (8.5-10.1)
[2023-04-11 07:56] LABS: ALBUMIN 2.6 g/dl (3.4-5.0); BLOOD UREA NITROGEN 15.4 mg/dL (7-18); MAGNESIUM 2.4 mg/dL (1.8-2.4)
[2023-04-11 07:59] LABS: CREATININE 0.6 mg/dL (0.55-1.3); PHOSPHOROUS 3.2 mg/dL (2.5-4.9)
[2023-04-11 08:00] LABS: TOT PROT 6.5 g/dl (6.4-8.2)
[2023-04-11 08:16] LABS: BILIRUBIN,TOTAL 0.3 mg/dL (0.2-1)
[2023-04-11] MEDS: predniSONE 10 MG TABLET (UD) GT SCH (10:15)
[2023-04-11] MEDS: levETIRAcetam 500 MG/5 ML ORAL SOLUTION (UNIT-DOSE CUPS) PEG SCH ×2 (10:16→22:17)
[2023-04-11] MEDS: POLYETHYLENE GLYCOL (HEALTHYLAX) 3350 17 GM PACKET GT SCH ×2 (10:16→22:16)
[2023-04-11] MEDS: MIDODRINE HCL 2.5 MG TABLET GT SCH ×3 (10:19→17:50)
[2023-04-11] MEDS: ZINC OXIDE 20% TOPICAL OINTMENT 30 GM TUBE TP SCH ×2 (10:19→22:16)
[2023-04-11] MEDS: SENNOSIDES 8.8 MG/5 ML SYRUP GT SCH (22:16)
[2023-04-12] MEDS: HEPARIN NA (PORCINE) 5,000 UNITS/ML 1ML VIAL SQ SCH ×2 (05:20→14:08)
[2023-04-12] MEDS: MAG HYDROX/AL HYDROX/SIMETH 30 ML UNIT-DOSE CUP GT SCH ×2 (05:20→14:08)
[2023-04-12] MEDS: BACLOFEN 10 MG TABLET (FP) GT SCH ×2 (07:00→14:08)
[2023-04-12] MEDS: BUDESONIDE 0.25 MG/2ML INH SUSP VIAL NEB SCH (08:23)
[2023-04-12] MEDS: ALBUTEROL SO4 2.5/IPRATROPIUM 0.5 INH SOL 3 ML VIAL.NEB. NEB SCH ×2 (08:24→11:30)
[2023-04-12 08:57] LABS: HEMATOCRIT 31.6 % (35.4-49); HEMOGLOBIN 10.6 GM/dL (11.7-16.9); MCH 30.8 pg (25.7-33.7); MCHC 33.4 g/dl (32.0-35.9); MEAN PLT VOLUME 8.2 fl (7.5-11.1); PLATELET COUNT 512 10^3/uL (134-434); RBC 3.44 M/mm3 (4.00-5.60); WHITE BLOOD COUNT 5.9 K/mm3 (4.0-10.0)
[2023-04-12 09:13] LABS: POTASSIUM 3.6 mmol/L (3.5-5.1)
[2023-04-12 09:18] LABS: CALCIUM 9.3 mg/dL (8.5-10.1)
[2023-04-12 09:19] LABS: BLOOD UREA NITROGEN 15.6 mg/dL (7-18); MAGNESIUM 2.3 mg/dL (1.8-2.4)
[2023-04-12 09:22] LABS: CREATININE 0.5 mg/dL (0.55-1.3); PHOSPHOROUS 3.5 mg/dL (2.5-4.9)
[2023-04-12] MEDS: MIDODRINE HCL 2.5 MG TABLET GT SCH ×3 (09:40→17:26)
[2023-04-12] MEDS: levETIRAcetam 500 MG/5 ML ORAL SOLUTION (UNIT-DOSE CUPS) PEG SCH (09:41)
[2023-04-12] MEDS: POLYETHYLENE GLYCOL (HEALTHYLAX) 3350 17 GM PACKET GT SCH (09:41)
[2023-04-12] MEDS: predniSONE 10 MG TABLET (UD) GT SCH (09:41)
[2023-04-12] MEDS: ZINC OXIDE 20% TOPICAL OINTMENT 30 GM TUBE TP SCH (09:42)
[2023-04-12 09:51] VITALS: RESP 18
[2023-04-12 14:59] VITALS: PULSE 77
[2023-04-12 16:44] VITALS: BP 123/67; TEMP 98.8
[2023-04-13] MEDS ORDERED: predniSONE 10 MG TABLET (UD) PO SCH (10:00)
== END 2023-04-12 18:05 | DRG 871 ==
LOC: JER 08:42 → JERBED 14:55 → J4S 04-06 02:33
PROVIDERS: ADMIT Internal Medicine; ATTEND Internal Medicine
PROC: 30233R1 Transfusion of Nonautologous Platelets into Peripheral Vein, Percutaneous Approach (ICD-10-PCS; principal; 2023-04-05)
PROC: 30233N1 Transfusion of Nonautologous Red Blood Cells into Peripheral Vein, Percutaneous Approach (ICD-10-PCS; 2023-04-05)
DX: A41.51 Sepsis due to Escherichia coli [E. coli] (principal); J69.0 Pneumonitis due to inhalation of food and vomit; J96.21 Acute and chronic respiratory failure with hypoxia; R53.2 Functional quadriplegia; E87.1 Hypo-osmolality and hyponatremia; D61.818 Other pancytopenia; F73 Profound intellectual disabilities; E87.20 Acidosis, unspecified; G40.909 Epilepsy, unspecified, not intractable, without status epilepticus; K52.9 Noninfective gastroenteritis and colitis, unspecified; G80.9 Cerebral palsy, unspecified; K59.00 Constipation, unspecified; R79.89 Other specified abnormal findings of blood chemistry; D69.6 Thrombocytopenia, unspecified; Z93.0 Tracheostomy status; Z93.1 Gastrostomy status
CPT/HCPCS: 0241U-QW; 36415; 36430; 71045-TC-FY; 71250-TC; 80048; 80053; 81003; 82272; 82803; 82962; 83010; 83605; 83735; 84100; 84443; 84484; 85025; 85027; 85379; 85384; 85610; 85730; 86850; 86900; 86901; 86922; 87040; 87070; 87086; 87186; 87205; 87635; 87899; 93005; 93010; 94640; 99284-25; 99285-25; G0480; J0475; J1644; P9037; P9038; P9058

== ENCOUNTER 2023-05-27 19:43 | Emergency (ER) | payer OTHER ==
[2023-05-27 20:16] VITALS: TEMP 98.6; BMI 22.1
[2023-05-27] MEDS: LACTATED RINGERS SOLUTION 1000 ML INFUS.BAG IV ONE (21:34)
[2023-05-27 21:42] LABS: BASO % 0.2 % (0-2.0); EOS % 0.1 % (0-4.5); HEMATOCRIT 35.2 % (35.4-49); HEMOGLOBIN 12.1 GM/dL (11.7-16.9); LYMPH % 11.7 % (8-40); MCH 31.5 pg (25.7-33.7); MCHC 34.2 g/dl (32.0-35.9); MEAN PLT VOLUME 10.2 fl (7.5-11.1); MONO % 6.8 % (3.8-10.2); NEUT % 81.2 % (42.8-82.8); PLATELET COUNT 158 10^3/uL (134-434); RBC 3.83 M/mm3 (4.00-5.60); WHITE BLOOD COUNT 10.1 K/mm3 (4.0-10.0)
[2023-05-27 21:44] LABS: VENOUS BASE EXCESS 5.7 mmol/L (-2-2); VENOUS O2 SATURATION 93.1 % (70-80); VENOUS PCO2 50.6 mmHg (38-52); VENOUS PH 7.415 (7.310-7.410)
[2023-05-27 21:48] LABS: INR 1.11 (0.83-1.09); PROTHROMBIN TIME (PATIENT) 12.9 SEC (9.7-13.0)
[2023-05-27 21:51] LABS: ACTIVATED PTT 45.9 SECONDS (25.2-36.5)
[2023-05-27 22:10] LABS: POTASSIUM 3.6 mmol/L (3.5-5.1)
[2023-05-27 22:12] LABS: ALBUMIN 3.2 g/dl (3.4-5.0); BLOOD UREA NITROGEN 21.9 mg/dL (7-18); CALCIUM 9.8 mg/dL (8.5-10.1); MAGNESIUM 2.6 mg/dL (1.8-2.4)
[2023-05-27 22:15] LABS: CREATININE 0.7 mg/dL (0.55-1.3)
[2023-05-27 22:17] LABS: BILIRUBIN,TOTAL 0.3 mg/dL (0.2-1)
[2023-05-27 22:22] LABS: LACTIC ACID 2.2 mmol/L (0.4-2.0)
[2023-05-28 00:12] VITALS: BP 122/72; RESP 16
[2023-05-28 03:55] VITALS: PULSE 89
== END 2023-05-28 02:24 ==
LOC: JER 19:43
DX: R09.02 Hypoxemia (principal); R06.03 Acute respiratory distress; Z20.822 Contact with and (suspected) exposure to COVID-19
CPT/HCPCS: 0241U-QW; 36415; 71045-TC-FY; 80053; 82803; 83605; 83735; 85025; 85610; 85730; 86850; 86900; 86901; 93005; 93010; 99285-25

== ENCOUNTER 2023-06-06 01:00 | Inpatient (IN) | payer OTHER ==
[2023-06-06 01:59] LABS: BASO % 0.3 % (0-2.0); EOS % 1.6 % (0-4.5); HEMATOCRIT 33.1 % (35.4-49); HEMOGLOBIN 11.4 GM/dL (11.7-16.9); LYMPH % 32.4 % (8-40); MCH 31.9 pg (25.7-33.7); MCHC 34.5 g/dl (32.0-35.9); MEAN CELL VOLUME 92.4 fl (80-96); MEAN PLT VOLUME 9.4 fl (7.5-11.1); MONO % 5.9 % (3.8-10.2); NEUT % 59.8 % (42.8-82.8); PLATELET COUNT 138 10^3/uL (134-434); RBC 3.58 M/mm3 (4.00-5.60); RDW 18.7 % (11.9-15.9); WHITE BLOOD COUNT 4.4 K/mm3 (4.0-10.0)
[2023-06-06 02:11] LABS: INR 1.03 (0.83-1.09); PROTHROMBIN TIME (PATIENT) 11.9 SEC (9.7-13.0)
[2023-06-06] MEDS ORDERED: ATROPINE SULFATE 1 MG/10 ML DISP.SYRIN ONE (02:17)
[2023-06-06] MEDS: ATROPINE SO4 0.4 MG/1 ML VIAL IVPUSH ONE (02:24)
[2023-06-06 02:26] LABS: POTASSIUM 4.2 mmol/L (3.5-5.1)
[2023-06-06 02:28] LABS: ALBUMIN 2.9 g/dl (3.4-5.0); BLOOD UREA NITROGEN 16.8 mg/dL (7-18); CALCIUM 8.9 mg/dL (8.5-10.1)
[2023-06-06 02:33] LABS: BILIRUBIN,TOTAL 0.3 mg/dL (0.2-1); TOT PROT 7.4 g/dl (6.4-8.2)
[2023-06-06 02:38] LABS: CREATININE 0.5 mg/dL (0.55-1.3)
[2023-06-06] MEDS ORDERED: NOREPINEPHRINE 0.9 % NACL 8 MG/250 ML BAG IVPB ONE (02:38)
[2023-06-06] MEDS: LACTATED RINGERS SOLUTION 1000 ML INFUS.BAG IV ONE ×3 (02:50→03:06)
[2023-06-06] MEDS: NOREPINEPHRINE BITARTRATE 4,000 MCG in DEXTROSE 5%-WATER - 496 ML IV SCH ×2 (02:51→02:52)
[2023-06-06] MEDS: SODIUM CHLORIDE 0.9% 500 ML INFUS.BAG IV ONE (03:06)
[2023-06-06] MEDS ORDERED: VANCOMYCIN 1 GRAM (PRE-DOCKED) 1,000 MG/250 ML BAG IVPB ONE (03:12)
[2023-06-06] MEDS ORDERED: PIPERACILLIN/TAZOB 4.5 GM 4.5 GM/100 ML BAG IVPB ONE (03:12)
[2023-06-06] MEDS: PIPERACILLIN/TAZOB 4.5 GM 4.5 GM in DEXTROSE 5%-WATER 100 ML IVPB ONE (03:31)
[2023-06-06 03:48] LABS: EPI CELLS 0 /uL (0-25.1); HYALINE CASTS 0 /uL (0-3.1); URINE APPEARANCE CLEAR; URINE BACTERIA 1154 /uL (0-1359); URINE BILIRUBIN NEGATIVE (NEGATIVE); URINE COLOR YELLOW; URINE GLUCOSE (UA) NEGATIVE (NEGATIVE); URINE KETONE NEGATIVE (NEGATIVE); URINE LEUK ESTERASE 3+ (NEGATIVE); URINE NITRITE NEGATIVE (NEGATIVE); URINE PROTEIN NEGATIVE (NEGATIVE); URINE RBC 10 /uL (0-23.9); URINE UROBILINOGEN 0.2 mg/dL (0.2-1.0); URINE WBC 186 /uL (0-25.8)
[2023-06-06] MEDS: VANCOMYCIN 1,000 MG in DEXTROSE 5%-WATER - 250 ML IVPB ONE (03:58)
[2023-06-06] MEDS: NOREPINEPHRINE 0.9 % NACL 8 MG/250 ML BAG IVPB SCH (04:17)
[2023-06-06] MEDS: HEPARIN NA (PORCINE) 5,000 UNITS/ML 1ML VIAL SQ SCH (06:19)
[2023-06-06] MEDS: BACLOFEN 10 MG TABLET (FP) PEG SCH (06:19)
[2023-06-06] MEDS: MIDODRINE HCL 2.5 MG TABLET PEG SCH (09:16)
[2023-06-06] MEDS: PIPERACILLIN/TAZOB 3.375 GM 3.375 GM in DEXTROSE 5%-WATER - 50 ML IVPB SCH (09:16)
[2023-06-06] MEDS: levETIRAcetam 500 MG/5 ML ORAL SOLUTION (UNIT-DOSE CUPS) PEG SCH (09:16)
[2023-06-06] MEDS ORDERED: PIPERACILLIN/TAZOB 3.375 GM 3.375 GM in DEXTROSE 5%-WATER - 50 ML IVPB SCH (10:00)
[2023-06-06] MEDS: MUPIROCIN 2% TOPICAL OINTMENT FOR DECOLONIZATION NS SCH (13:08)
[2023-06-06] MEDS: PIPERACILLIN/TAZOB 2.25 GM 2.25 GM in DEXTROSE 5%-WATER - 50 ML IVPB SCH (17:03)
[2023-06-06] MEDS: CHLORHEXIDINE GLUCONATE 4% CLEANSER FOR DECOLONIZATION TP SCH (21:21)
[2023-06-07] MEDS: VANCOMYCIN/WATER FOR INJ (PEG) 1,000 MG/200 ML BAG IVPB SCH (05:55)
[2023-06-07 06:38] LABS: BASO % 0.3 % (0-2.0); EOS % 1.1 % (0-4.5); HEMATOCRIT 34.6 % (35.4-49); HEMOGLOBIN 11.6 GM/dL (11.7-16.9); LYMPH % 24.8 % (8-40); MCH 31.1 pg (25.7-33.7); MCHC 33.4 g/dl (32.0-35.9); MEAN CELL VOLUME 93.2 fl (80-96); MEAN PLT VOLUME 9.7 fl (7.5-11.1); NEUT % 65.8 % (42.8-82.8); PLATELET COUNT 180 10^3/uL (134-434); RBC 3.71 M/mm3 (4.00-5.60); RDW 18.2 % (11.9-15.9); WHITE BLOOD COUNT 5.7 K/mm3 (4.0-10.0)
[2023-06-07 07:02] LABS: POTASSIUM 4.1 mmol/L (3.5-5.1)
[2023-06-07 07:08] LABS: BLOOD UREA NITROGEN 10.5 mg/dL (7-18); CALCIUM 9.3 mg/dL (8.5-10.1); MAGNESIUM 2.4 mg/dL (1.8-2.4)
[2023-06-07 07:09] LABS: ALBUMIN 2.8 g/dl (3.4-5.0)
[2023-06-07 07:11] LABS: PHOSPHOROUS 2.4 mg/dL (2.5-4.9)
[2023-06-07 07:12] LABS: BILIRUBIN,TOTAL 0.4 mg/dL (0.2-1); CREATININE 0.6 mg/dL (0.55-1.3); TOT PROT 7.2 g/dl (6.4-8.2)
[2023-06-07] MEDS: SODIUM CHLORIDE 1,000 ML IV STA (09:57)
[2023-06-07] MEDS ORDERED: ALBUTEROL SO4 2.5/IPRATROPIUM 0.5 INH SOL 3 ML VIAL.NEB. NEB PRN (10:58)
[2023-06-07] MEDS: BISACODYL 10 MG SUPP.RECT PR PRN (12:23)
[2023-06-07] MEDS: SCOPOLAMINE HYDROBROMIDE 1 PATCH PATCH.TD72 TD SCH (12:23)
[2023-06-07] MEDS: BACITRACIN ZINC 15 GM TUBE TOPICAL OINTMENT TP PRN (12:23)
[2023-06-07] MEDS: guaiFENesin 200 MG/10 ML 10 ML UNIT-DOSE CUPS GT PRN (12:23)
[2023-06-07] MEDS: MAG HYDROX/AL HYDROX/SIMETH 30 ML UNIT-DOSE CUP GT SCH (13:01)
[2023-06-07] MEDS: VITAMINS A AND D TOPICAL OINTMENT TP PRN (13:02)
[2023-06-07] MEDS ORDERED: ZINC OXIDE 20% TOPICAL OINTMENT 30 GM TUBE TP SCH ×2 (14:00→22:00)
[2023-06-07] MEDS: SENNOSIDES 8.8 MG/5 ML SYRUP GT SCH (21:22)
[2023-06-07] MEDS: CHOLECALCIFEROL (VIT D3) 1,000 UNIT (25 MCG) TABLET GT SCH (21:23)
[2023-06-07] MEDS: ALBUTEROL SO4 2.5/IPRATROPIUM 0.5 INH SOL 3 ML VIAL.NEB. NEB SCH (21:47)
[2023-06-08 06:59] LABS: BASO % 0.6 % (0-2.0); EOS % 1.9 % (0-4.5); HEMATOCRIT 31.4 % (35.4-49); HEMOGLOBIN 10.5 GM/dL (11.7-16.9); LYMPH % 39.4 % (8-40); MCH 30.9 pg (25.7-33.7); MCHC 33.3 g/dl (32.0-35.9); MEAN CELL VOLUME 92.9 fl (80-96); MEAN PLT VOLUME 9.3 fl (7.5-11.1); MONO % 11.6 % (3.8-10.2); NEUT % 46.5 % (42.8-82.8); PLATELET COUNT 154 10^3/uL (134-434); RBC 3.38 M/mm3 (4.00-5.60); RDW 18.5 % (11.9-15.9); WHITE BLOOD COUNT 4.1 K/mm3 (4.0-10.0)
[2023-06-08 07:14] LABS: POTASSIUM 3.9 mmol/L (3.5-5.1)
[2023-06-08 07:22] LABS: ALBUMIN 2.8 g/dl (3.4-5.0); CALCIUM 9.5 mg/dL (8.5-10.1); PHOSPHOROUS 3.2 mg/dL (2.5-4.9)
[2023-06-08 07:23] LABS: BLOOD UREA NITROGEN 9.2 mg/dL (7-18); MAGNESIUM 2.3 mg/dL (1.8-2.4)
[2023-06-08 07:24] LABS: BILIRUBIN,TOTAL 0.4 mg/dL (0.2-1)
[2023-06-08 07:25] LABS: CREATININE 0.6 mg/dL (0.55-1.3)
[2023-06-08] MEDS: ACETAMINOPHEN 650 MG/20.3 ML ORAL SOLUTION (CUPS) GT PRN (10:32)
[2023-06-09 07:01] LABS: HEMATOCRIT 31.1 % (35.4-49); HEMOGLOBIN 10.7 GM/dL (11.7-16.9); MCHC 34.4 g/dl (32.0-35.9); MEAN CELL VOLUME 92.9 fl (80-96); MEAN PLT VOLUME 9.1 fl (7.5-11.1); PLATELET COUNT 157 10^3/uL (134-434); RBC 3.35 M/mm3 (4.00-5.60); RDW 18.6 % (11.9-15.9); WHITE BLOOD COUNT 6.6 K/mm3 (4.0-10.0)
[2023-06-09 07:30] LABS: POTASSIUM 3.8 mmol/L (3.5-5.1)
[2023-06-09 07:33] LABS: CALCIUM 9.8 mg/dL (8.5-10.1)
[2023-06-09 07:34] LABS: ALBUMIN 2.9 g/dl (3.4-5.0); BLOOD UREA NITROGEN 11.6 mg/dL (7-18)
[2023-06-09 07:37] LABS: CREATININE 0.7 mg/dL (0.55-1.3); PHOSPHOROUS 4.1 mg/dL (2.5-4.9)
[2023-06-09 07:38] LABS: BILIRUBIN,TOTAL 0.5 mg/dL (0.2-1)
[2023-06-09 07:39] LABS: TOT PROT 7.3 g/dl (6.4-8.2)
[2023-06-09 11:45] VITALS: BMI 20.4
[2023-06-09] MEDS: AMPICILLIN NA/SULBACTAM NA 1.5 GM in SODIUM CHLORIDE 100 ML IVPB SCH (18:35)
[2023-06-10 07:07] LABS: HEMATOCRIT 30.4 % (35.4-49); HEMOGLOBIN 10.5 GM/dL (11.7-16.9); MCH 32.1 pg (25.7-33.7); MCHC 34.5 g/dl (32.0-35.9); MEAN PLT VOLUME 9.2 fl (7.5-11.1); MONO % 11.3 % (3.8-10.2); NEUT % 50.5 % (42.8-82.8); PLATELET COUNT 168 10^3/uL (134-434); RBC 3.26 M/mm3 (4.00-5.60); RDW 18.5 % (11.9-15.9); WHITE BLOOD COUNT 4.1 K/mm3 (4.0-10.0)
[2023-06-10 07:08] LABS: BASO % 0.5 % (0-2.0); EOS % 2.7 % (0-4.5)
[2023-06-10 07:28] LABS: POTASSIUM 3.5 mmol/L (3.5-5.1)
[2023-06-10 07:41] LABS: ALBUMIN 2.8 g/dl (3.4-5.0); BLOOD UREA NITROGEN 11.4 mg/dL (7-18)
[2023-06-10 07:44] LABS: CREATININE 0.5 mg/dL (0.55-1.3)
[2023-06-10 07:45] LABS: TOT PROT 7.3 g/dl (6.4-8.2)
[2023-06-10 07:46] LABS: BILIRUBIN,TOTAL 0.3 mg/dL (0.2-1)
[2023-06-10] MEDS: POTASSIUM CHLORIDE ORAL LIQUID 20 MEQ/15 ML GT ONE (09:30)
[2023-06-10] MEDS ORDERED: VITAMINS A AND D TOPICAL OINTMENT TP PRN (19:40)
[2023-06-10] MEDS ORDERED: ACETAMINOPHEN 650 MG/20.3 ML ORAL SOLUTION (CUPS) GT PRN (19:40)
[2023-06-10] MEDS ORDERED: guaiFENesin 200 MG/10 ML 10 ML UNIT-DOSE CUPS GT PRN (19:40)
[2023-06-10] MEDS ORDERED: BACITRACIN ZINC 15 GM TUBE TOPICAL OINTMENT TP PRN (19:40)
[2023-06-10] MEDS ORDERED: BISACODYL 10 MG SUPP.RECT PR PRN (19:40)
[2023-06-10] MEDS: ALBUTEROL SO4 2.5/IPRATROPIUM 0.5 INH SOL 3 ML VIAL.NEB. NEB SCH (20:40)
[2023-06-10 21:03] VITALS: RESP 18
[2023-06-10] MEDS ORDERED: MUPIROCIN 2% TOPICAL OINTMENT FOR DECOLONIZATION NS SCH (22:00)
[2023-06-10] MEDS ORDERED: CHLORHEXIDINE GLUCONATE 4% CLEANSER FOR DECOLONIZATION TP SCH (22:00)
[2023-06-10] MEDS: ZINC OXIDE 20% TOPICAL OINTMENT 30 GM TUBE TP SCH (22:16)
[2023-06-10] MEDS: MAG HYDROX/AL HYDROX/SIMETH 30 ML UNIT-DOSE CUP GT SCH (22:17)
[2023-06-10] MEDS: levETIRAcetam 500 MG/5 ML ORAL SOLUTION (UNIT-DOSE CUPS) PEG SCH (22:17)
[2023-06-10] MEDS: HEPARIN NA (PORCINE) 5,000 UNITS/ML 1ML VIAL SQ SCH (22:17)
[2023-06-10] MEDS: BACLOFEN 10 MG TABLET (FP) PEG SCH (22:18)
[2023-06-10] MEDS: CHOLECALCIFEROL (VIT D3) 1,000 UNIT (25 MCG) TABLET GT SCH (22:18)
[2023-06-10] MEDS: SENNOSIDES 8.8 MG/5 ML SYRUP GT SCH (22:18)
[2023-06-11] MEDS ORDERED: AMOX TR/POTASSIUM CLAVULANATE 250 MG/5 ML BOTTLE GT SCH (08:00)
[2023-06-11 08:03] VITALS: BP 120/75
[2023-06-11 08:25] VITALS: PULSE 45
[2023-06-11 08:36] VITALS: TEMP 98.6
[2023-06-11] MEDS: AMOX TR/POTASSIUM CLAVULANATE 250 MG/5 ML BOTTLE GT SCH (08:54)
[2023-06-11 09:58] LABS: BASO % 0.8 % (0-2.0); EOS % 5.4 % (0-4.5); HEMATOCRIT 31.1 % (35.4-49); HEMOGLOBIN 10.5 GM/dL (11.7-16.9); LYMPH % 47.8 % (8-40); MCH 31.8 pg (25.7-33.7); MCHC 33.9 g/dl (32.0-35.9); MEAN CELL VOLUME 93.8 fl (80-96); MEAN PLT VOLUME 8.9 fl (7.5-11.1); MONO % 12.4 % (3.8-10.2); NEUT % 33.6 % (42.8-82.8); PLATELET COUNT 194 10^3/uL (134-434); RBC 3.32 M/mm3 (4.00-5.60); RDW 18.8 % (11.9-15.9); WHITE BLOOD COUNT 3.2 K/mm3 (4.0-10.0)
[2023-06-11] MEDS: MIDODRINE HCL 2.5 MG TABLET PEG SCH (10:24)
[2023-06-11 11:19] LABS: BILIRUBIN,TOTAL 0.3 mg/dL (0.2-1); BLOOD UREA NITROGEN 18.1 mg/dL (7-18); CALCIUM 9.6 mg/dL (8.5-10.1); CREATININE 0.5 mg/dL (0.55-1.3); MAGNESIUM 2.6 mg/dL (1.8-2.4); TOT PROT 7.7 g/dl (6.4-8.2)
[2023-06-13] MEDS ORDERED: SCOPOLAMINE HYDROBROMIDE 1 PATCH PATCH.TD72 TD SCH (11:00)
== END 2023-06-11 14:09 | DRG 871 ==
LOC: JER 01:00 → JERBED 02:48 → JICU 05:25 → J5S 06-10 19:28
PROVIDERS: ADMIT Internal Medicine Pulmonary Disease; ATTEND Nurse Practitioner Acute Care
PROC: 06HM33Z Insertion of Infusion Device into Right Femoral Vein, Percutaneous Approach (ICD-10-PCS; principal; 2023-06-06)
DX: A41.81 Sepsis due to Enterococcus (principal); R53.2 Functional quadriplegia; R65.21 Severe sepsis with septic shock; N39.0 Urinary tract infection, site not specified; F73 Profound intellectual disabilities; J96.11 Chronic respiratory failure with hypoxia; Q67.5 Congenital deformity of spine; G40.909 Epilepsy, unspecified, not intractable, without status epilepticus; R00.1 Bradycardia, unspecified; I95.9 Hypotension, unspecified; R68.0 Hypothermia, not associated with low environmental temperature; R78.89 Finding of other specified substances, not normally found in blood; G80.9 Cerebral palsy, unspecified; K59.00 Constipation, unspecified; B95.2 Enterococcus as the cause of diseases classified elsewhere; Q02 Microcephaly; Z93.0 Tracheostomy status; Z93.1 Gastrostomy status; Z99.81 Dependence on supplemental oxygen
CPT/HCPCS: 0241U-QW; 36415; 71045-TC-FY; 80053; 81003; 82550; 82962; 83605; 83735; 84100; 84484; 85025; 85027; 85610; 85730; 86140; 86850; 86900; 86901; 87040; 87070; 87086; 87186; 87205; 87635; 93005; 93010; 94640; 99285-25; J0475; J1644

== ENCOUNTER 2023-06-19 19:40 | Inpatient (IN) | payer OTHER ==
[2023-06-19] MEDS ORDERED: ALBUTEROL SO4 2.5/IPRATROPIUM 0.5 INH SOL 3 ML VIAL.NEB. NEB ONE (20:23)
[2023-06-19] MEDS: ALBUTEROL SO4 2.5/IPRATROPIUM 0.5 INH SOL 3 ML VIAL.NEB. NEB ONE (20:32)
[2023-06-19 21:34] LABS: BASO % 0.2 % (0-2.0); EOS % 1.7 % (0-4.5); HEMATOCRIT 33.6 % (35.4-49); HEMOGLOBIN 11.6 GM/dL (11.7-16.9); LYMPH % 14.2 % (8-40); MCH 32.1 pg (25.7-33.7); MCHC 34.4 g/dl (32.0-35.9); MEAN CELL VOLUME 93.3 fl (80-96); MEAN PLT VOLUME 9.4 fl (7.5-11.1); MONO % 6.4 % (3.8-10.2); NEUT % 77.5 % (42.8-82.8); PLATELET COUNT 372 10^3/uL (134-434); RDW 19.2 % (11.9-15.9); WHITE BLOOD COUNT 11.9 K/mm3 (4.0-10.0)
[2023-06-19 21:43] LABS: VENOUS BASE EXCESS 6.8 mmol/L (-2-2); VENOUS O2 SATURATION 97.2 % (70-80); VENOUS PCO2 49.7 mmHg (38-52); VENOUS PH 7.431 (7.310-7.410)
[2023-06-19 21:53] LABS: POTASSIUM 4.7 mmol/L (3.5-5.1)
[2023-06-19 21:55] LABS: CALCIUM 9.4 mg/dL (8.5-10.1)
[2023-06-19 21:56] LABS: ALBUMIN 3.4 g/dl (3.4-5.0); BLOOD UREA NITROGEN 15.1 mg/dL (7-18)
[2023-06-19 21:59] LABS: CREATININE 0.5 mg/dL (0.55-1.3)
[2023-06-19 22:00] LABS: BILIRUBIN,TOTAL 0.4 mg/dL (0.2-1); TOT PROT 8.6 g/dl (6.4-8.2)
[2023-06-20] MEDS ORDERED: ALBUTEROL SO4 2.5/IPRATROPIUM 0.5 INH SOL 3 ML VIAL.NEB. NEB PRN (00:41)
[2023-06-20] MEDS ORDERED: AZITHROMYCIN IVPB 500 MG/250 ML BAG IVPB ONE (01:34)
[2023-06-20] MEDS: AZITHROMYCIN IVPB 500 MG in DEXTROSE 5%-WATER - 250 ML IVPB ONE (01:52)
[2023-06-20] MEDS ORDERED: VANCOMYCIN 1 GRAM (PRE-DOCKED) 1,000 MG/250 ML BAG IVPB ONE (04:08)
[2023-06-20] MEDS ORDERED: PIPERACILLIN/TAZOB 4.5 GM 4.5 GM/100 ML BAG IVPB ONE ×3 (04:09→18:23)
[2023-06-20] MEDS: SODIUM CHLORIDE 1,905 ML IV ONE (04:25)
[2023-06-20] MEDS: PIPERACILLIN/TAZOB 4.5 GM 4.5 GM in DEXTROSE 5%-WATER 100 ML IVPB SCH (04:26)
[2023-06-20] MEDS: VANCOMYCIN 1 GRAM (PRE-DOCKED) 1,000 MG/250 ML BAG IVPB ONE (05:18)
[2023-06-20 05:22] LABS: EPI CELLS 3 /uL (0-25.1); HYALINE CASTS 1 /uL (0-3.1); URINE APPEARANCE CLEAR; URINE BACTERIA >9,000 /uL (0-1359); URINE BILIRUBIN NEGATIVE (NEGATIVE); URINE COLOR YELLOW; URINE GLUCOSE (UA) NEGATIVE (NEGATIVE); URINE KETONE NEGATIVE (NEGATIVE); URINE LEUK ESTERASE 2+ (NEGATIVE); URINE NITRITE NEGATIVE (NEGATIVE); URINE PROTEIN 1+ (NEGATIVE); URINE RBC 10 /uL (0-23.9); URINE UROBILINOGEN 0.2 mg/dL (0.2-1.0); URINE WBC 187 /uL (0-25.8)
[2023-06-20 06:10] LABS: BASO % 0.7 % (0-2.0); EOS % 1.4 % (0-4.5); HEMATOCRIT 32.7 % (35.4-49); LYMPH % 15.7 % (8-40); MCH 31.6 pg (25.7-33.7); MCHC 33.6 g/dl (32.0-35.9); MEAN PLT VOLUME 8.8 fl (7.5-11.1); MONO % 6.4 % (3.8-10.2); NEUT % 75.8 % (42.8-82.8); PLATELET COUNT 319 10^3/uL (134-434); RBC 3.48 M/mm3 (4.00-5.60); RDW 18.9 % (11.9-15.9); WHITE BLOOD COUNT 11.4 K/mm3 (4.0-10.0)
[2023-06-20 06:24] LABS: POTASSIUM 4.4 mmol/L (3.5-5.1)
[2023-06-20 06:26] LABS: ALBUMIN 3.2 g/dl (3.4-5.0); BLOOD UREA NITROGEN 13.1 mg/dL (7-18)
[2023-06-20 06:29] LABS: CREATININE 0.5 mg/dL (0.55-1.3); PHOSPHOROUS 3.4 mg/dL (2.5-4.9)
[2023-06-20 06:31] LABS: BILIRUBIN,TOTAL 0.6 mg/dL (0.2-1); TOT PROT 8.2 g/dl (6.4-8.2)
[2023-06-20] MEDS ORDERED: BACLOFEN 10 MG TABLET (FP) ONE (06:39)
[2023-06-20] MEDS: BACLOFEN 10 MG TABLET (FP) GT SCH (06:56)
[2023-06-20] MEDS: SODIUM CHLORIDE 1,000 ML IV SCH (08:08)
[2023-06-20] MEDS: SODIUM CHLORIDE FOR INHALATION 3 ML VIAL.NEB IH SCH (08:34)
[2023-06-20] MEDS: ALBUTEROL SO4 2.5/IPRATROPIUM 0.5 INH SOL 3 ML VIAL.NEB. NEB SCH (08:34)
[2023-06-20] MEDS: MIDODRINE HCL 2.5 MG TABLET GT SCH (09:38)
[2023-06-20] MEDS: SCOPOLAMINE HYDROBROMIDE 1 PATCH PATCH.TD72 TD SCH (09:38)
[2023-06-20] MEDS: POLYETHYLENE GLYCOL (HEALTHYLAX) 3350 17 GM PACKET GT SCH (09:38)
[2023-06-20] MEDS: ENOXAPARIN NA (PORCINE) 40 MG/0.4 ML DISP.SYRIN SQ SCH (09:38)
[2023-06-20] MEDS: levETIRAcetam 500 MG/5 ML ORAL SOLUTION (UNIT-DOSE CUPS) PEG SCH (09:38)
[2023-06-20 10:55] VITALS: BMI 22.7
[2023-06-20] MEDS ORDERED: PIPERACILLIN/TAZOB 2.25 GM 2.25 GM/50 ML BAG IVPB ONE (18:29)
[2023-06-20] MEDS: BACITRACIN ZINC 15 GM TUBE TOPICAL OINTMENT TP SCH (18:31)
[2023-06-20] MEDS: PIPERACILLIN/TAZOB 2.25 GM 2.25 GM in DEXTROSE 5%-WATER - 50 ML IVPB SCH (18:31)
[2023-06-20] MEDS: DEXTROSE 50%-WATER - 25 GM/50 ML VIAL IVPUSH ONE (19:13)
[2023-06-20] MEDS: AMINO ACIDS 4.25%/D5W 1,000 ML IV SCH (19:52)
[2023-06-20] MEDS ORDERED: ALBUTEROL SO4 2.5/IPRATROPIUM 0.5 INH SOL 3 ML VIAL.NEB. NEB ONE (20:21)
[2023-06-20] MEDS ORDERED: POLYETHYLENE GLYCOL (HEALTHYLAX) 3350 17 GM PACKET ONE (22:41)
[2023-06-20] MEDS ORDERED: CHOLECALCIFEROL (VIT D3) 1,000 UNIT (25 MCG) TABLET ONE (22:41)
[2023-06-20] MEDS: SENNOSIDES 8.8 MG/5 ML SYRUP GT SCH (22:52)
[2023-06-20] MEDS: CHOLECALCIFEROL (VIT D3) 1,000 UNIT (25 MCG) TABLET GT SCH (22:52)
[2023-06-21] MEDS ORDERED: PIPERACILLIN/TAZOB 4.5 GM 4.5 GM in DEXTROSE 5%-WATER 100 ML IVPB SCH (02:00)
[2023-06-21] MEDS ORDERED: PIPERACILLIN/TAZOB 2.25 GM 2.25 GM/50 ML BAG IVPB ONE ×2 (02:16→12:57)
[2023-06-21 06:56] LABS: BASO % 0.4 % (0-2.0); EOS % 3.5 % (0-4.5); HEMATOCRIT 29.8 % (35.4-49); HEMOGLOBIN 10.2 GM/dL (11.7-16.9); LYMPH % 13.7 % (8-40); MCH 32.5 pg (25.7-33.7); MCHC 34.3 g/dl (32.0-35.9); MEAN CELL VOLUME 94.9 fl (80-96); MEAN PLT VOLUME 8.9 fl (7.5-11.1); MONO % 6.3 % (3.8-10.2); NEUT % 76.1 % (42.8-82.8); PLATELET COUNT 286 10^3/uL (134-434); RBC 3.14 M/mm3 (4.00-5.60); RDW 19.2 % (11.9-15.9); WHITE BLOOD COUNT 7.1 K/mm3 (4.0-10.0)
[2023-06-21 07:13] LABS: POTASSIUM 3.9 mmol/L (3.5-5.1)
[2023-06-21 07:20] LABS: CALCIUM 8.8 mg/dL (8.5-10.1)
[2023-06-21 07:21] LABS: ALBUMIN 2.9 g/dl (3.4-5.0); MAGNESIUM 1.9 mg/dL (1.8-2.4)
[2023-06-21 07:24] LABS: CREATININE 0.5 mg/dL (0.55-1.3)
[2023-06-21 07:25] LABS: BILIRUBIN,TOTAL 0.7 mg/dL (0.2-1); TOT PROT 7.4 g/dl (6.4-8.2)
[2023-06-21] MEDS ORDERED: ALBUTEROL SO4 2.5/IPRATROPIUM 0.5 INH SOL 3 ML VIAL.NEB. NEB ONE ×2 (08:06→12:56)
[2023-06-21] MEDS ORDERED: ALBUTEROL SO4 0.083% IH SOL 2.5 MG/3 ML VIAL.NEB. NEB PRN (11:59)
[2023-06-21] MEDS ORDERED: POLYETHYLENE GLYCOL (HEALTHYLAX) 3350 17 GM PACKET ONE (12:56)
[2023-06-21] MEDS ORDERED: ENOXAPARIN NA (PORCINE) 40 MG/0.4 ML DISP.SYRIN SQ ONE (12:57)
[2023-06-21] MEDS ORDERED: methylPREDNISolone NA SUCC 40 MG/1 ML VIAL ONE (12:57)
[2023-06-21] MEDS ORDERED: BACLOFEN 10 MG TABLET (FP) ONE (12:57)
[2023-06-21] MEDS: methylPREDNISolone NA SUCC 40 MG/1 ML VIAL IVPUSH SCH (13:12)
[2023-06-21] MEDS: ALBUTEROL SO4 2.5/IPRATROPIUM 0.5 INH SOL 3 ML VIAL.NEB. NEB SCH (13:12)
[2023-06-22 10:56] LABS: BASO % 0.6 % (0-2.0); EOS % 2.5 % (0-4.5); HEMATOCRIT 29.1 % (35.4-49); LYMPH % 30.6 % (8-40); MCH 32.5 pg (25.7-33.7); MCHC 34.2 g/dl (32.0-35.9); MEAN PLT VOLUME 9.1 fl (7.5-11.1); MONO % 12.9 % (3.8-10.2); NEUT % 53.4 % (42.8-82.8); PLATELET COUNT 288 10^3/uL (134-434); RBC 3.06 M/mm3 (4.00-5.60); RDW 18.7 % (11.9-15.9); WHITE BLOOD COUNT 5.4 K/mm3 (4.0-10.0)
[2023-06-22 11:02] LABS: INR 1.17 (0.83-1.09); PROTHROMBIN TIME (PATIENT) 13.5 SEC (9.7-13.0)
[2023-06-22 11:05] LABS: ACTIVATED PTT 37.8 SECONDS (25.2-36.5)
[2023-06-22 11:14] LABS: POTASSIUM 3.6 mmol/L (3.5-5.1)
[2023-06-22 11:18] LABS: CALCIUM 9.1 mg/dL (8.5-10.1)
[2023-06-22 11:19] LABS: ALBUMIN 2.9 g/dl (3.4-5.0); BLOOD UREA NITROGEN 13.8 mg/dL (7-18); MAGNESIUM 1.6 mg/dL (1.8-2.4)
[2023-06-22 11:21] LABS: CREATININE 0.5 mg/dL (0.55-1.3)
[2023-06-22 11:23] LABS: BILIRUBIN,TOTAL 0.4 mg/dL (0.2-1); TOT PROT 7.6 g/dl (6.4-8.2)
[2023-06-23 08:01] LABS: BASO % 0.5 % (0-2.0); EOS % 0.8 % (0-4.5); HEMATOCRIT 29.5 % (35.4-49); HEMOGLOBIN 10.1 GM/dL (11.7-16.9); LYMPH % 37.5 % (8-40); MCH 32.2 pg (25.7-33.7); MCHC 34.1 g/dl (32.0-35.9); MEAN CELL VOLUME 94.3 fl (80-96); MEAN PLT VOLUME 8.8 fl (7.5-11.1); MONO % 14.7 % (3.8-10.2); NEUT % 46.5 % (42.8-82.8); PLATELET COUNT 314 10^3/uL (134-434); RBC 3.13 M/mm3 (4.00-5.60); RDW 18.8 % (11.9-15.9); WHITE BLOOD COUNT 5.8 K/mm3 (4.0-10.0)
[2023-06-23 08:20] LABS: POTASSIUM 3.3 mmol/L (3.5-5.1)
[2023-06-23 08:23] LABS: ALBUMIN 3.2 g/dl (3.4-5.0); BLOOD UREA NITROGEN 19.7 mg/dL (7-18); MAGNESIUM 1.7 mg/dL (1.8-2.4)
[2023-06-23 08:26] LABS: CREATININE 0.6 mg/dL (0.55-1.3)
[2023-06-23 08:28] LABS: BILIRUBIN,TOTAL 0.6 mg/dL (0.2-1); TOT PROT 7.8 g/dl (6.4-8.2)
[2023-06-23] MEDS ORDERED: PIPERACILLIN/TAZOBACTAM 2.25 GM VIAL IVPB ONE (09:20)
[2023-06-23] MEDS: POTASSIUM CHLORIDE ORAL LIQUID 20 MEQ/15 ML PO SCH (09:56)
[2023-06-23] MEDS: AMINO ACIDS/PROTEIN HYDROLYS 30 ML LIQUID.PKT GT SCH (11:46)
[2023-06-24 11:04] LABS: BASO % 0.7 % (0-2.0); EOS % 1.9 % (0-4.5); HEMATOCRIT 28.5 % (35.4-49); HEMOGLOBIN 9.9 GM/dL (11.7-16.9); LYMPH % 40.3 % (8-40); MCH 32.6 pg (25.7-33.7); MCHC 34.8 g/dl (32.0-35.9); MEAN CELL VOLUME 93.6 fl (80-96); MEAN PLT VOLUME 8.6 fl (7.5-11.1); MONO % 11.1 % (3.8-10.2); PLATELET COUNT 283 10^3/uL (134-434); RBC 3.04 M/mm3 (4.00-5.60); RDW 18.4 % (11.9-15.9); WHITE BLOOD COUNT 5.5 K/mm3 (4.0-10.0)
[2023-06-24 11:32] LABS: POTASSIUM 3.6 mmol/L (3.5-5.1)
[2023-06-24 11:39] LABS: CALCIUM 9.4 mg/dL (8.5-10.1); CREATININE 0.5 mg/dL (0.55-1.3)
[2023-06-24 11:40] LABS: BLOOD UREA NITROGEN 23.5 mg/dL (7-18); MAGNESIUM 1.8 mg/dL (1.8-2.4)
[2023-06-24 11:41] LABS: BILIRUBIN,TOTAL 0.4 mg/dL (0.2-1); TOT PROT 7.9 g/dl (6.4-8.2)
[2023-06-24] MEDS: POTASSIUM CHLORIDE ORAL LIQUID 20 MEQ/15 ML PO ONE (12:02)
[2023-06-24] MEDS ORDERED: LINACLOTIDE 145 MCG GT SCH (16:00)
[2023-06-24] MEDS: PATIENT'S OWN MEDICATION (NON-FORMULARY) (Linaclotide 145 MCG Capsule) PO SCH (16:14)
[2023-06-25 09:02] LABS: EOS % 7.6 % (0-4.5); HEMATOCRIT 30.2 % (35.4-49); HEMOGLOBIN 10.4 GM/dL (11.7-16.9); LYMPH % 34.2 % (8-40); MCH 32.5 pg (25.7-33.7); MCHC 34.5 g/dl (32.0-35.9); MEAN CELL VOLUME 94.3 fl (80-96); MEAN PLT VOLUME 8.5 fl (7.5-11.1); MONO % 8.2 % (3.8-10.2); PLATELET COUNT 304 10^3/uL (134-434); RDW 18.5 % (11.9-15.9); WHITE BLOOD COUNT 6.1 K/mm3 (4.0-10.0)
[2023-06-25 09:13] LABS: POTASSIUM 4.4 mmol/L (3.5-5.1)
[2023-06-25 09:23] LABS: CALCIUM 9.5 mg/dL (8.5-10.1)
[2023-06-25 09:24] LABS: BLOOD UREA NITROGEN 25.2 mg/dL (7-18); MAGNESIUM 1.9 mg/dL (1.8-2.4)
[2023-06-25 09:26] LABS: CREATININE 0.5 mg/dL (0.55-1.3)
[2023-06-25 09:28] LABS: BILIRUBIN,TOTAL 0.2 mg/dL (0.2-1); TOT PROT 7.6 g/dl (6.4-8.2)
[2023-06-25] MEDS ORDERED: PRAMOXINE HCL/MINERAL OIL/ZNOX 30 GM TUBE RC SCH (22:00)
[2023-06-25] MEDS: PHENYLEPH/MINERAL OIL/PETROLAT 28 GM OINTMENT RC SCH (22:08)
[2023-06-27 08:00] LABS: BASO % 1.1 % (0-2.0); EOS % 9.6 % (0-4.5); HEMATOCRIT 28.5 % (35.4-49); HEMOGLOBIN 9.6 GM/dL (11.7-16.9); LYMPH % 32.3 % (8-40); MCH 32.1 pg (25.7-33.7); MCHC 33.6 g/dl (32.0-35.9); MEAN CELL VOLUME 95.6 fl (80-96); MEAN PLT VOLUME 8.5 fl (7.5-11.1); MONO % 9.7 % (3.8-10.2); NEUT % 47.3 % (42.8-82.8); PLATELET COUNT 308 10^3/uL (134-434); RBC 2.98 M/mm3 (4.00-5.60); WHITE BLOOD COUNT 7.3 K/mm3 (4.0-10.0)
[2023-06-27 09:03] LABS: POTASSIUM 3.8 mmol/L (3.5-5.1)
[2023-06-27 09:04] LABS: CALCIUM 9.7 mg/dL (8.5-10.1)
[2023-06-27 09:05] LABS: BLOOD UREA NITROGEN 21.2 mg/dL (7-18)
[2023-06-27 09:08] LABS: CREATININE 0.7 mg/dL (0.55-1.3)
[2023-06-27] MEDS ORDERED: LIPASE/PROTEASE/AMYLASE 6,000 UNIT CAPSULE NR PRN (15:59)
[2023-06-28 09:51] LABS: BASO % 0.8 % (0-2.0); EOS % 8.9 % (0-4.5); HEMATOCRIT 25.7 % (35.4-49); HEMOGLOBIN 8.9 GM/dL (11.7-16.9); LYMPH % 20.1 % (8-40); MCH 32.6 pg (25.7-33.7); MCHC 34.5 g/dl (32.0-35.9); MEAN CELL VOLUME 94.4 fl (80-96); MEAN PLT VOLUME 8.7 fl (7.5-11.1); MONO % 6.8 % (3.8-10.2); NEUT % 63.4 % (42.8-82.8); PLATELET COUNT 285 10^3/uL (134-434); RBC 2.72 M/mm3 (4.00-5.60); RDW 18.2 % (11.9-15.9); WHITE BLOOD COUNT 7.5 K/mm3 (4.0-10.0)
[2023-06-28 10:23] LABS: POTASSIUM 3.4 mmol/L (3.5-5.1)
[2023-06-28 10:24] LABS: CALCIUM 9.7 mg/dL (8.5-10.1)
[2023-06-28 10:25] LABS: BLOOD UREA NITROGEN 22.7 mg/dL (7-18)
[2023-06-28] MEDS: ENOXAPARIN NA (PORCINE) 40 MG/0.4 ML DISP.SYRIN SQ SCH (10:59)
[2023-06-28 11:16] LABS: CREATININE 0.5 mg/dL (0.55-1.3)
[2023-06-28 13:08] LABS: BASO % 0.6 % (0-2.0); EOS % 9.1 % (0-4.5); HEMATOCRIT 28.5 % (35.4-49); HEMOGLOBIN 9.7 GM/dL (11.7-16.9); LYMPH % 24.5 % (8-40); MCH 32.3 pg (25.7-33.7); MCHC 34.2 g/dl (32.0-35.9); MEAN CELL VOLUME 94.5 fl (80-96); MEAN PLT VOLUME 8.3 fl (7.5-11.1); MONO % 7.8 % (3.8-10.2); PLATELET COUNT 303 10^3/uL (134-434); RBC 3.02 M/mm3 (4.00-5.60); RDW 18.3 % (11.9-15.9)
[2023-06-28 13:18] LABS: INR 1.12 (0.83-1.09)
[2023-06-28] MEDS ORDERED: IOHEXOL (OMNIPAQUE PO) 12 MG/ML - 500 ML BOTTLE PO ONE ×2 (13:59→14:04)
[2023-06-29 08:28] LABS: INR 1.21 (0.83-1.09)
[2023-06-29 08:29] LABS: BASO % 0.9 % (0-2.0); EOS % 4.7 % (0-4.5); HEMATOCRIT 29.9 % (35.4-49); LYMPH % 26.2 % (8-40); MCHC 33.6 g/dl (32.0-35.9); MEAN CELL VOLUME 95.4 fl (80-96); MEAN PLT VOLUME 8.8 fl (7.5-11.1); MONO % 7.9 % (3.8-10.2); NEUT % 60.3 % (42.8-82.8); PLATELET COUNT 345 10^3/uL (134-434); RBC 3.14 M/mm3 (4.00-5.60); RDW 17.7 % (11.9-15.9); WHITE BLOOD COUNT 7.9 K/mm3 (4.0-10.0)
[2023-06-29 08:52] LABS: POTASSIUM 3.5 mmol/L (3.5-5.1)
[2023-06-29 08:57] LABS: ALBUMIN 3.6 g/dl (3.4-5.0)
[2023-06-29 08:58] LABS: BLOOD UREA NITROGEN 18.4 mg/dL (7-18); CALCIUM 10.1 mg/dL (8.5-10.1); MAGNESIUM 2.1 mg/dL (1.8-2.4)
[2023-06-29 09:01] LABS: BILIRUBIN,TOTAL 0.7 mg/dL (0.2-1); CREATININE 0.9 mg/dL (0.55-1.3)
[2023-06-29 09:02] LABS: TOT PROT 8.3 g/dl (6.4-8.2)
[2023-06-29 15:40] VITALS: RESP 18
[2023-06-29 16:20] LABS: BASO % 0.6 % (0-2.0); EOS % 2.5 % (0-4.5); HEMATOCRIT 30.4 % (35.4-49); HEMOGLOBIN 10.2 GM/dL (11.7-16.9); LYMPH % 30.1 % (8-40); MCH 31.9 pg (25.7-33.7); MCHC 33.5 g/dl (32.0-35.9); MEAN CELL VOLUME 95.3 fl (80-96); MEAN PLT VOLUME 8.9 fl (7.5-11.1); MONO % 10.1 % (3.8-10.2); NEUT % 56.7 % (42.8-82.8); PLATELET COUNT 332 10^3/uL (134-434); RBC 3.19 M/mm3 (4.00-5.60); RDW 18.1 % (11.9-15.9); WHITE BLOOD COUNT 7.8 K/mm3 (4.0-10.0)
[2023-06-29] MEDS: AMINO ACIDS 4.25%/D5W 1,000 ML IV SCH (19:44)
[2023-06-30 08:55] LABS: BASO % 0.8 % (0-2.0); EOS % 2.6 % (0-4.5); HEMATOCRIT 30.6 % (35.4-49); HEMOGLOBIN 10.2 GM/dL (11.7-16.9); MCH 32.1 pg (25.7-33.7); MCHC 33.3 g/dl (32.0-35.9); MEAN CELL VOLUME 96.4 fl (80-96); MONO % 9.8 % (3.8-10.2); NEUT % 59.8 % (42.8-82.8); PLATELET COUNT 294 10^3/uL (134-434); RBC 3.17 M/mm3 (4.00-5.60); WHITE BLOOD COUNT 6.8 K/mm3 (4.0-10.0)
[2023-06-30 09:42] LABS: ALBUMIN 3.4 g/dl (3.4-5.0); CALCIUM 9.4 mg/dL (8.5-10.1); MAGNESIUM 2.3 mg/dL (1.8-2.4)
[2023-06-30 09:45] LABS: CREATININE 0.6 mg/dL (0.55-1.3)
[2023-06-30 09:46] LABS: BLOOD UREA NITROGEN 19.4 mg/dL (7-18)
[2023-06-30 09:51] LABS: BILIRUBIN,TOTAL 0.5 mg/dL (0.2-1)
[2023-06-30] MEDS: PANTOPRAZOLE SODIUM 40 MG VIAL IVPUSH SCH (10:12)
[2023-06-30] MEDS: POTASSIUM CHLORIDE ORAL LIQUID 20 MEQ/15 ML PO ONE (13:29)
[2023-06-30 14:21] VITALS: BP 107/65; PULSE 88; TEMP 97.2
== END 2023-06-30 16:43 | DRG 871 ==
LOC: JER 19:40 → JERBED 23:50 → J8W 06-21 14:16
PROVIDERS: ADMIT Internal Medicine; ATTEND Nurse Practitioner Family
DX: A41.89 Other specified sepsis (principal); J69.0 Pneumonitis due to inhalation of food and vomit; J96.21 Acute and chronic respiratory failure with hypoxia; R53.2 Functional quadriplegia; R65.21 Severe sepsis with septic shock; J96.22 Acute and chronic respiratory failure with hypercapnia; F73 Profound intellectual disabilities; N39.0 Urinary tract infection, site not specified; K92.2 Gastrointestinal hemorrhage, unspecified; Q02 Microcephaly; G80.9 Cerebral palsy, unspecified; G40.909 Epilepsy, unspecified, not intractable, without status epilepticus; R68.0 Hypothermia, not associated with low environmental temperature; R00.1 Bradycardia, unspecified; Z93.1 Gastrostomy status; K59.00 Constipation, unspecified; K59.81 Ogilvie syndrome
CPT/HCPCS: 0241U-QW; 36415; 71045-TC-FY; 71250-TC; 74018-TC-FY; 74176-TC; 80048; 80053; 81003; 82272; 82308; 82728; 82803; 82962; 82977; 83540; 83550; 83605; 83735; 83880; 84100; 84484; 85025; 85610; 85730; 86850; 86900; 86901; 87040; 87070; 87081; 87086; 87186; 87205; 87635; 87899; 93005; 93010; 94640; 99285-25; J0475

== ENCOUNTER 2023-07-01 13:07 | Inpatient (IN) | payer OTHER ==
[2023-07-01 13:49] VITALS: BMI 25.3
[2023-07-01 15:06] LABS: BASO % 0.7 % (0-2.0); EOS % 4.1 % (0-4.5); HEMOGLOBIN 9.2 GM/dL (11.7-16.9); LYMPH % 17.1 % (8-40); MCH 31.4 pg (25.7-33.7); MCHC 32.9 g/dl (32.0-35.9); MEAN CELL VOLUME 95.7 fl (80-96); MEAN PLT VOLUME 8.1 fl (7.5-11.1); MONO % 5.3 % (3.8-10.2); NEUT % 72.8 % (42.8-82.8); PLATELET COUNT 271 10^3/uL (134-434); RBC 2.93 M/mm3 (4.00-5.60); RDW 18.1 % (11.9-15.9); WHITE BLOOD COUNT 11.6 K/mm3 (4.0-10.0)
[2023-07-01 15:29] LABS: POTASSIUM 3.6 mmol/L (3.5-5.1)
[2023-07-01 15:31] LABS: ALBUMIN 3.3 g/dl (3.4-5.0); BLOOD UREA NITROGEN 21.6 mg/dL (7-18)
[2023-07-01 15:34] LABS: CREATININE 0.4 mg/dL (0.55-1.3)
[2023-07-01 15:36] LABS: BILIRUBIN,TOTAL 0.3 mg/dL (0.2-1); TOT PROT 7.4 g/dl (6.4-8.2)
[2023-07-01 15:49] LABS: VENOUS BASE EXCESS 0.9 mmol/L (-2-2); VENOUS O2 SATURATION 96.7 % (70-80); VENOUS PCO2 42.5 mmHg (38-52); VENOUS PH 7.402 (7.310-7.410)
[2023-07-01 15:50] LABS: INR 1.02 (0.83-1.09); PROTHROMBIN TIME (PATIENT) 11.8 SEC (9.7-13.0)
[2023-07-01 15:53] LABS: ACTIVATED PTT 34.6 SECONDS (25.2-36.5)
[2023-07-01 16:15] LABS: EPI CELLS >36 /uL (0-25.1); HYALINE CASTS 1 /uL (0-3.1); PH,URINE 6.5 (5.0-8.0); URINE APPEARANCE CLEAR; URINE BACTERIA 20 /uL (0-1359); URINE BILIRUBIN NEGATIVE (NEGATIVE); URINE COLOR YELLOW; URINE GLUCOSE (UA) NEGATIVE (NEGATIVE); URINE KETONE NEGATIVE (NEGATIVE); URINE LEUK ESTERASE 1+ (NEGATIVE); URINE NITRITE NEGATIVE (NEGATIVE); URINE PROTEIN NEGATIVE (NEGATIVE); URINE RBC 11 /uL (0-23.9); URINE WBC 27 /uL (0-25.8)
[2023-07-01 17:59] LABS: URINE CRYSTALS FEW /hpf
[2023-07-01] MEDS ORDERED: PANTOPRAZOLE SODIUM 40 MG VIAL ONE (17:59)
[2023-07-01] MEDS: PANTOPRAZOLE SODIUM 40 MG VIAL IVPUSH ONE (18:00)
[2023-07-01] MEDS ORDERED: PIPERACILLIN/TAZOB 3.375 GM 3.375 GM/50 ML BAG IVPB ONE (19:29)
[2023-07-01] MEDS: SODIUM CHLORIDE 1,000 ML IV SCH (19:31)
[2023-07-01] MEDS: PIPERACILLIN/TAZOB 3.375 GM 3.375 GM in DEXTROSE 5%-WATER - 50 ML IVPB SCH (19:31)
[2023-07-01] MEDS: levETIRAcetam 500 MG/5 ML ORAL SOLUTION (UNIT-DOSE CUPS) PEG SCH (21:40)
[2023-07-01] MEDS: MUPIROCIN 2% TOPICAL OINTMENT 22 GM TUBE TP SCH (21:40)
[2023-07-01] MEDS: SENNOSIDES 8.8 MG/5 ML SYRUP GT SCH (21:40)
[2023-07-01] MEDS: POLYETHYLENE GLYCOL (HEALTHYLAX) 3350 17 GM PACKET GT SCH (21:40)
[2023-07-01] MEDS ORDERED: ACETAMINOPHEN 650 MG/20.3 ML ORAL SOLUTION (CUPS) GT PRN (21:55)
[2023-07-01] MEDS ORDERED: BISACODYL 10 MG SUPP.RECT PR PRN (21:55)
[2023-07-01] MEDS: MAG HYDROX/AL HYDROX/SIMETH 30 ML UNIT-DOSE CUP GT SCH (22:35)
[2023-07-01] MEDS: BACLOFEN 10 MG TABLET (FP) GT SCH (22:36)
[2023-07-01] MEDS: CHOLECALCIFEROL (VIT D SOLUTION) 400 UNIT/1 ML DROPS GT SCH (22:44)
[2023-07-01] MEDS: SIMETHICONE 40 MG/0.6 ML BOTTLE GT SCH (22:44)
[2023-07-02] MEDS: SCOPOLAMINE HYDROBROMIDE 1 PATCH PATCH.TD72 TP SCH (08:01)
[2023-07-02] MEDS: ALBUTEROL SO4 2.5/IPRATROPIUM 0.5 INH SOL 3 ML VIAL.NEB. NEB SCH (08:33)
[2023-07-02 08:57] LABS: HEMATOCRIT 22.4 % (35.4-49); HEMOGLOBIN 7.7 GM/dL (11.7-16.9); MCH 32.8 pg (25.7-33.7); MCHC 34.2 g/dl (32.0-35.9); MEAN CELL VOLUME 95.8 fl (80-96); MEAN PLT VOLUME 8.4 fl (7.5-11.1); PLATELET COUNT 231 10^3/uL (134-434); RBC 2.34 M/mm3 (4.00-5.60); WHITE BLOOD COUNT 5.2 K/mm3 (4.0-10.0)
[2023-07-02 09:13] LABS: POTASSIUM 3.2 mmol/L (3.5-5.1)
[2023-07-02 09:21] LABS: BLOOD UREA NITROGEN 13.3 mg/dL (7-18); CALCIUM 8.5 mg/dL (8.5-10.1)
[2023-07-02 09:22] LABS: ALBUMIN 2.8 g/dl (3.4-5.0); MAGNESIUM 2.1 mg/dL (1.8-2.4)
[2023-07-02 09:23] LABS: PHOSPHOROUS 2.6 mg/dL (2.5-4.9)
[2023-07-02 09:25] LABS: BILIRUBIN,TOTAL 0.6 mg/dL (0.2-1); CREATININE 0.5 mg/dL (0.55-1.3); TOT PROT 6.4 g/dl (6.4-8.2)
[2023-07-02] MEDS: PANTOPRAZOLE SODIUM 40 MG VIAL IVPUSH SCH (09:44)
[2023-07-02] MEDS: MIDODRINE HCL 2.5 MG TABLET GT SCH (09:45)
[2023-07-02] MEDS: KCL 10 MEQ IVPB 10 MEQ/100 ML INFUS.BAG IVPB SCH ×2 (11:10→14:18)
[2023-07-02 11:33] LABS: BASO % 0.7 % (0-2.0); EOS % 7.4 % (0-4.5); HEMATOCRIT 22.8 % (35.4-49); HEMOGLOBIN 7.7 GM/dL (11.7-16.9); LYMPH % 22.9 % (8-40); MCH 32.4 pg (25.7-33.7); MCHC 33.9 g/dl (32.0-35.9); MEAN CELL VOLUME 95.6 fl (80-96); MEAN PLT VOLUME 8.5 fl (7.5-11.1); MONO % 7.8 % (3.8-10.2); NEUT % 61.2 % (42.8-82.8); PLATELET COUNT 235 10^3/uL (134-434); RBC 2.39 M/mm3 (4.00-5.60); RDW 18.3 % (11.9-15.9); WHITE BLOOD COUNT 4.8 K/mm3 (4.0-10.0)
[2023-07-02] MEDS: PATIENT'S OWN MEDICATION (NON-FORMULARY) (Linaclotide 145 MCG Capsule) PO SCH (12:05)
[2023-07-02] MEDS ORDERED: BUDESONIDE 0.5 MG/2 ML INH SUSP VIAL NEB SCH (12:10)
[2023-07-02] MEDS: BUDESONIDE 0.5 MG/2 ML INH SUSP VIAL NEB SCH ×2 (12:13→13:04)
[2023-07-02] MEDS: DEXTROSE 5%-NORMAL SALINE 1,000 ML IV SCH (12:55)
[2023-07-02] MEDS: PIPERACILLIN/TAZOB 3.375 GM 3.375 GM in DEXTROSE 5%-WATER - 50 ML IVPB SCH (13:05)
[2023-07-02] MEDS: AMINO ACIDS 4.25%/D5W 1,000 ML IV SCH (14:28)
[2023-07-03 08:10] LABS: BASO % 0.2 % (0-2.0); EOS % 4.6 % (0-4.5); HEMATOCRIT 21.9 % (35.4-49); HEMOGLOBIN 7.4 GM/dL (11.7-16.9); LYMPH % 17.9 % (8-40); MCH 32.8 pg (25.7-33.7); MCHC 33.9 g/dl (32.0-35.9); MEAN CELL VOLUME 96.8 fl (80-96); MONO % 6.2 % (3.8-10.2); NEUT % 71.1 % (42.8-82.8); PLATELET COUNT 232 10^3/uL (134-434); RBC 2.26 M/mm3 (4.00-5.60); RDW 18.2 % (11.9-15.9); WHITE BLOOD COUNT 7.3 K/mm3 (4.0-10.0)
[2023-07-03 08:25] LABS: POTASSIUM 3.1 mmol/L (3.5-5.1)
[2023-07-03 08:32] LABS: IRON SERUM 43 ug/dL (50-175)
[2023-07-03 08:33] LABS: TOTAL IRON BINDING CAPACITY 220 ug/dL (250-450)
[2023-07-03 08:34] LABS: CALCIUM 8.2 mg/dL (8.5-10.1)
[2023-07-03 08:36] LABS: ALBUMIN 2.6 g/dl (3.4-5.0); BLOOD UREA NITROGEN 9.4 mg/dL (7-18)
[2023-07-03 08:39] LABS: CREATININE 0.3 mg/dL (0.55-1.3); TOT PROT 6.2 g/dl (6.4-8.2)
[2023-07-03 08:41] LABS: BILIRUBIN,TOTAL 0.4 mg/dL (0.2-1)
[2023-07-03] MEDS: KCL 10 MEQ IVPB 10 MEQ/100 ML INFUS.BAG IVPB SCH (09:16)
[2023-07-03] MEDS: PEG 3350/NA SULF BICARB CL/KCL 4000 ML SOLN.RECON GT ONE (13:56)
[2023-07-04 08:56] LABS: BASO % 0.7 % (0-2.0); EOS % 8.5 % (0-4.5); HEMATOCRIT 28.4 % (35.4-49); HEMOGLOBIN 9.8 GM/dL (11.7-16.9); LYMPH % 33.2 % (8-40); MCHC 34.6 g/dl (32.0-35.9); MEAN CELL VOLUME 92.3 fl (80-96); MEAN PLT VOLUME 8.2 fl (7.5-11.1); MONO % 9.2 % (3.8-10.2); NEUT % 48.4 % (42.8-82.8); PLATELET COUNT 225 10^3/uL (134-434); RBC 3.08 M/mm3 (4.00-5.60); RDW 21.2 % (11.9-15.9); WHITE BLOOD COUNT 4.3 K/mm3 (4.0-10.0)
[2023-07-04 09:52] LABS: ANISOCYTOSIS 1+; MACROCYTOSIS 0
[2023-07-04] MEDS: CHOLECALCIFEROL (VIT D3) 1,000 UNIT (25 MCG) TABLET GT SCH (21:53)
[2023-07-05 09:30] LABS: INR 1.15 (0.83-1.09); PROTHROMBIN TIME (PATIENT) 13.3 SEC (9.7-13.0)
[2023-07-05 09:34] LABS: BASO % 0.6 % (0-2.0); EOS % 7.1 % (0-4.5); HEMATOCRIT 30.6 % (35.4-49); HEMOGLOBIN 10.4 GM/dL (11.7-16.9); MCH 31.2 pg (25.7-33.7); MCHC 33.9 g/dl (32.0-35.9); MEAN CELL VOLUME 92.2 fl (80-96); MEAN PLT VOLUME 9.5 fl (7.5-11.1); MONO % 8.5 % (3.8-10.2); NEUT % 48.8 % (42.8-82.8); PLATELET COUNT 255 10^3/uL (134-434); RBC 3.32 M/mm3 (4.00-5.60); RDW 20.8 % (11.9-15.9); WHITE BLOOD COUNT 7.3 K/mm3 (4.0-10.0)
[2023-07-05 10:19] LABS: POTASSIUM 3.1 mmol/L (3.5-5.1)
[2023-07-05 10:37] LABS: CALCIUM 8.3 mg/dL (8.5-10.1)
[2023-07-05 10:38] LABS: BLOOD UREA NITROGEN 11.1 mg/dL (7-18); MAGNESIUM 1.8 mg/dL (1.8-2.4)
[2023-07-05 10:41] LABS: CREATININE 0.3 mg/dL (0.55-1.3)
[2023-07-05 10:42] LABS: BILIRUBIN,TOTAL 0.5 mg/dL (0.2-1); TOT PROT 6.8 g/dl (6.4-8.2)
[2023-07-05] MEDS ORDERED: POTASSIUM CHLORIDE ORAL LIQUID 20 MEQ/15 ML PO ONE (14:07)
[2023-07-05] MEDS: KCL 10 MEQ IVPB 10 MEQ/100 ML INFUS.BAG IVPB SCH (14:32)
[2023-07-05] MEDS: POTASSIUM CHLORIDE ORAL LIQUID 20 MEQ/15 ML GT ONE (14:59)
[2023-07-05] MEDS ORDERED: PEG 3350/NA SULF BICARB CL/KCL 4000 ML SOLN.RECON PO ONE (15:00)
[2023-07-05] MEDS: PEG 3350/NA SULF BICARB CL/KCL 4000 ML SOLN.RECON PO ONE (16:13)
[2023-07-05] MEDS: D5-NS + 20 MEQ KCL - 20 MEQ/1,000 ML INFUS.BAG IV SCH (17:51)
[2023-07-06 09:22] LABS: BASO % 0.5 % (0-2.0); EOS % 9.1 % (0-4.5); HEMATOCRIT 28.9 % (35.4-49); LYMPH % 37.6 % (8-40); MCH 31.9 pg (25.7-33.7); MCHC 34.5 g/dl (32.0-35.9); MEAN CELL VOLUME 92.2 fl (80-96); MEAN PLT VOLUME 8.2 fl (7.5-11.1); MONO % 9.6 % (3.8-10.2); NEUT % 43.2 % (42.8-82.8); PLATELET COUNT 237 10^3/uL (134-434); RBC 3.14 M/mm3 (4.00-5.60); WHITE BLOOD COUNT 4.1 K/mm3 (4.0-10.0)
[2023-07-06 09:25] LABS: INR 1.17 (0.83-1.09); PROTHROMBIN TIME (PATIENT) 13.6 SEC (9.7-13.0)
[2023-07-06 09:46] LABS: POTASSIUM 3.1 mmol/L (3.5-5.1)
[2023-07-06 09:59] LABS: ALBUMIN 2.9 g/dl (3.4-5.0); BLOOD UREA NITROGEN 6.7 mg/dL (7-18); MAGNESIUM 1.7 mg/dL (1.8-2.4)
[2023-07-06 10:01] LABS: CREATININE 0.3 mg/dL (0.55-1.3)
[2023-07-06 10:03] LABS: BILIRUBIN,TOTAL 0.4 mg/dL (0.2-1); TOT PROT 6.4 g/dl (6.4-8.2)
[2023-07-06] MEDS: POTASSIUM CHLORIDE ORAL LIQUID 20 MEQ/15 ML GT ONE (17:44)
[2023-07-06] MEDS: D5-1/2NS+10 MEQ KCL - 10 MEQ/1,000 ML INFUS.BAG IV SCH (20:47)
[2023-07-06] MEDS: AMINO ACIDS 4.25%/D5W 1,000 ML IV SCH (20:47)
[2023-07-07 09:48] LABS: BASO % 0.6 % (0-2.0); EOS % 7.6 % (0-4.5); HEMATOCRIT 31.3 % (35.4-49); LYMPH % 36.4 % (8-40); MCH 32.3 pg (25.7-33.7); MCHC 35.1 g/dl (32.0-35.9); MEAN PLT VOLUME 8.1 fl (7.5-11.1); MONO % 5.8 % (3.8-10.2); NEUT % 49.6 % (42.8-82.8); PLATELET COUNT 233 10^3/uL (134-434); RBC 3.41 M/mm3 (4.00-5.60); RDW 21.1 % (11.9-15.9); WHITE BLOOD COUNT 3.6 K/mm3 (4.0-10.0)
[2023-07-07 10:10] LABS: POTASSIUM 3.4 mmol/L (3.5-5.1)
[2023-07-07 10:16] LABS: ALBUMIN 2.8 g/dl (3.4-5.0)
[2023-07-07 10:19] LABS: ANISOCYTOSIS 1+; MACROCYTOSIS 1+
[2023-07-07 10:20] LABS: CREATININE 0.3 mg/dL (0.55-1.3)
[2023-07-07 10:21] LABS: BILIRUBIN,TOTAL 0.3 mg/dL (0.2-1); TOT PROT 6.8 g/dl (6.4-8.2)
[2023-07-07 10:24] LABS: CALCIUM 9.4 mg/dL (8.5-10.1)
[2023-07-07 11:04] VITALS: BP 118/78; PULSE 62; RESP 20; TEMP 97.6
== END 2023-07-07 11:19 | disposition home or self-care (01) | DRG 377 ==
LOC: JER 13:07 → JERBED 16:54 → J5S 19:46 → J8W 07-02 18:11
PROVIDERS: ADMIT Internal Medicine; ATTEND Nurse Practitioner Acute Care
PROC: 30233N1 Transfusion of Nonautologous Red Blood Cells into Peripheral Vein, Percutaneous Approach (ICD-10-PCS; 2023-07-03)
PROC: 0DB98ZX Excision of Duodenum, Via Natural or Artificial Opening Endoscopic, Diagnostic (ICD-10-PCS; 2023-07-06)
PROC: 0DB68ZX Excision of Stomach, Via Natural or Artificial Opening Endoscopic, Diagnostic (ICD-10-PCS; 2023-07-06)
PROC: 0DJD8ZZ Inspection of Lower Intestinal Tract, Via Natural or Artificial Opening Endoscopic (ICD-10-PCS; principal; 2023-07-06 11:30)
DX: K92.2 Gastrointestinal hemorrhage, unspecified (principal); R53.2 Functional quadriplegia; J96.10 Chronic respiratory failure, unspecified whether with hypoxia or hypercapnia; K59.39 Other megacolon; G40.909 Epilepsy, unspecified, not intractable, without status epilepticus; Q02 Microcephaly; Z93.1 Gastrostomy status; G80.8 Other cerebral palsy; D64.9 Anemia, unspecified; K29.60 Other gastritis without bleeding; M81.0 Age-related osteoporosis without current pathological fracture; Z93.0 Tracheostomy status; K56.41 Fecal impaction
CPT/HCPCS: 0241U-QW; 36415; 36430; 71045-TC-FY; 74018-TC-FY; 80053; 81003; 82272; 82550; 82553; 82803; 83540; 83550; 83605; 83735; 84100; 84436; 84443; 84478; 84484; 85025; 85027; 85610; 85730; 86850; 86900; 86901; 86922; 87040; 87086; 87635; 88305-TC; 93005; 93010; 94640; 99285-25; J0475; P9058

== ENCOUNTER 2023-12-13 16:09 | Inpatient (IN) | payer OTHER ==
[2023-12-13] MEDS ORDERED: PIPERACILLIN/TAZOB 4.5 GM 4.5 GM/100 ML BAG IVPB ONE (18:01)
[2023-12-13] MEDS ORDERED: VANCOMYCIN 1 GRAM (PRE-DOCKED) 1,000 MG/250 ML BAG IVPB ONE (18:01)
[2023-12-13 18:03] LABS: VENOUS O2 SATURATION 62.4 % (70-80); VENOUS PH 7.473 (7.310-7.410)
[2023-12-13 18:06] LABS: BASO % 0.3 % (0-2.0); HEMATOCRIT 28.2 % (35.4-49); HEMOGLOBIN 9.4 GM/dL (11.7-16.9); MCH 32.8 pg (25.7-33.7); MCHC 33.5 g/dl (32.0-35.9); MEAN PLT VOLUME 9.8 fl (7.5-11.1); MONO % 9.1 % (3.8-10.2); NEUT % 59.6 % (42.8-82.8); PLATELET COUNT 120 10^3/uL (134-434); RBC 2.88 M/mm3 (4.00-5.60); RDW 17.1 % (11.9-15.9); WHITE BLOOD COUNT 3.7 K/mm3 (4.0-10.0)
[2023-12-13 18:08] LABS: EPI CELLS 7 /uL (0-25.1); HYALINE CASTS 0 /uL (0-3.1); URINE APPEARANCE CLEAR; URINE BACTERIA 284 /uL (0-1359); URINE BILIRUBIN NEGATIVE (NEGATIVE); URINE COLOR YELLOW; URINE GLUCOSE (UA) NEGATIVE (NEGATIVE); URINE KETONE NEGATIVE (NEGATIVE); URINE LEUK ESTERASE 3+ (NEGATIVE); URINE NITRITE NEGATIVE (NEGATIVE); URINE PROTEIN NEGATIVE (NEGATIVE); URINE RBC 8 /uL (0-23.9); URINE WBC 34 /uL (0-25.8)
[2023-12-13 18:11] LABS: INR 0.96 (0.83-1.09); PROTHROMBIN TIME (PATIENT) 10.9 SEC (9.7-13.0)
[2023-12-13] MEDS: PIPERACILLIN/TAZOBACTAM 4.5 GM VIAL IVPB ONE (18:13)
[2023-12-13 18:23] LABS: POTASSIUM 3.2 mmol/L (3.5-5.1)
[2023-12-13 18:25] LABS: ALBUMIN 2.8 g/dl (3.4-5.0); BLOOD UREA NITROGEN 17.4 mg/dL (7-18)
[2023-12-13 18:28] LABS: CREATININE 0.5 mg/dL (0.55-1.3)
[2023-12-13 18:30] LABS: BILIRUBIN,TOTAL 0.6 mg/dL (0.2-1); MAGNESIUM 2.3 mg/dL (1.8-2.4); TOT PROT 7.2 g/dl (6.4-8.2)
[2023-12-13 18:34] LABS: PHOSPHOROUS 2.5 mg/dL (2.5-4.9)
[2023-12-13] MEDS: VANCOMYCIN 1,000 MG in DEXTROSE 5%-WATER - 250 ML IVPB ONE (18:38)
[2023-12-13] MEDS ORDERED: MIDODRINE HCL 5 MG TABLET ONE (18:39)
[2023-12-13] MEDS: MIDODRINE HCL 5 MG TABLET PO SCH (18:49)
[2023-12-13] MEDS ORDERED: POTASSIUM CHLORIDE ORAL LIQUID 20 MEQ/15 ML ONE (20:05)
[2023-12-13] MEDS: POTASSIUM CHLORIDE ORAL LIQUID 20 MEQ/15 ML PEG ONE (20:17)
[2023-12-13 22:59] LABS: BASO % 0.1 % (0-2.0); EOS % 1.2 % (0-4.5); HEMATOCRIT 28.8 % (35.4-49); HEMOGLOBIN 9.7 GM/dL (11.7-16.9); LYMPH % 25.7 % (8-40); MCH 32.5 pg (25.7-33.7); MCHC 33.6 g/dl (32.0-35.9); MEAN CELL VOLUME 96.5 fl (80-96); MEAN PLT VOLUME 9.9 fl (7.5-11.1); MONO % 7.8 % (3.8-10.2); NEUT % 65.2 % (42.8-82.8); PLATELET COUNT 142 10^3/uL (134-434); RBC 2.99 M/mm3 (4.00-5.60); RDW 17.6 % (11.9-15.9); WHITE BLOOD COUNT 3.6 K/mm3 (4.0-10.0)
[2023-12-13 23:00] LABS: VENOUS O2 SATURATION 96.3 % (70-80); VENOUS PCO2 63.6 mmHg (38-52); VENOUS PH 7.474 (7.310-7.410)
[2023-12-13 23:04] LABS: INR 0.98 (0.83-1.09); PROTHROMBIN TIME (PATIENT) 11.1 SEC (9.7-13.0)
[2023-12-13 23:13] LABS: POTASSIUM 3.7 mmol/L (3.5-5.1)
[2023-12-13 23:15] LABS: ALBUMIN 2.8 g/dl (3.4-5.0); CALCIUM 9.1 mg/dL (8.5-10.1)
[2023-12-13 23:16] LABS: BLOOD UREA NITROGEN 15.7 mg/dL (7-18); MAGNESIUM 2.2 mg/dL (1.8-2.4)
[2023-12-13 23:19] LABS: CREATININE 0.6 mg/dL (0.55-1.3); PHOSPHOROUS 2.6 mg/dL (2.5-4.9)
[2023-12-13 23:20] LABS: TOT PROT 7.2 g/dl (6.4-8.2)
[2023-12-13] MEDS ORDERED: POTASSIUM CHLORIDE ORAL LIQUID 20 MEQ/15 ML PO ONE (23:20)
[2023-12-13 23:24] LABS: N-TERMINAL BNP 147.5 pg/ml (5-125)
[2023-12-13] MEDS ORDERED: DEXTROSE 50%-WATER 25 GM/50 ML DISP.SYRIN ONE (23:54)
[2023-12-13] MEDS: levETIRAcetam 500 MG/5 ML ORAL SOLUTION (UNIT-DOSE CUPS) PEG SCH (23:54)
[2023-12-13] MEDS: MIDODRINE HCL 2.5 MG TABLET PEG SCH (23:55)
[2023-12-13] MEDS: DEXTROSE 50%-WATER - 25 GM/50 ML VIAL IVPUSH ONE (23:55)
[2023-12-13] MEDS: BACLOFEN 10 MG TABLET (FP) PEG SCH (23:55)
[2023-12-13] MEDS: HEPARIN NA (PORCINE) 5,000 UNITS/ML 1ML VIAL SQ SCH (23:56)
[2023-12-13] MEDS: CHLORHEXIDINE GLUCONATE 4% CLEANSER FOR DECOLONIZATION TP SCH (23:56)
[2023-12-14] MEDS: DEXTROSE 10%-WATER - 1,000 ML IV SCH (00:17)
[2023-12-14 01:11] LABS: ARTERIAL BLD GAS O2 SATURATION 95.7 % (95-98); ARTERIAL BLOOD GAS BASE EXCESS 11.1 mmol/L (-2-2); ARTERIAL BLOOD GAS PO2 79.4 mmHg (80-100); ARTERIAL BLOOD GAS pH 7.428 (7.350-7.450)
[2023-12-14] MEDS: ALBUTEROL SO4 0.083% IH SOL 2.5 MG/3 ML VIAL.NEB. NEB SCH ×2 (01:33→08:50)
[2023-12-14] MEDS: POTASSIUM CHLORIDE ORAL LIQUID 20 MEQ/15 ML PEG ONE (02:07)
[2023-12-14] MEDS: PIPERACILLIN/TAZOB 3.375 GM 3.375 GM in DEXTROSE 5%-WATER - 50 ML IVPB SCH ×2 (02:08→17:12)
[2023-12-14 02:09] LABS: POTASSIUM 2.9 mmol/L (3.5-5.1)
[2023-12-14] MEDS: KCL 10 MEQ IVPB 10 MEQ/100 ML INFUS.BAG IVPB SCH (02:32)
[2023-12-14] MEDS: LACTATED RINGERS SOLUTION 1000 ML INFUS.BAG IV ONE ×3 (03:00→11:50)
[2023-12-14 06:43] LABS: BASO % 0.4 % (0-2.0); HEMATOCRIT 24.9 % (35.4-49); HEMOGLOBIN 8.3 GM/dL (11.7-16.9); LYMPH % 19.1 % (8-40); MCH 32.9 pg (25.7-33.7); MCHC 33.4 g/dl (32.0-35.9); MEAN CELL VOLUME 98.6 fl (80-96); MEAN PLT VOLUME 9.3 fl (7.5-11.1); NEUT % 70.5 % (42.8-82.8); PLATELET COUNT 106 10^3/uL (134-434); RBC 2.53 M/mm3 (4.00-5.60); RDW 17.9 % (11.9-15.9); WHITE BLOOD COUNT 3.9 K/mm3 (4.0-10.0)
[2023-12-14 06:45] LABS: INR 1.01 (0.83-1.09); PROTHROMBIN TIME (PATIENT) 11.4 SEC (9.7-13.0)
[2023-12-14 06:48] LABS: ACTIVATED PTT 43.9 SECONDS (25.2-36.5)
[2023-12-14 06:56] LABS: POTASSIUM 4.1 mmol/L (3.5-5.1)
[2023-12-14 06:59] LABS: ALBUMIN 2.4 g/dl (3.4-5.0); CALCIUM 8.4 mg/dL (8.5-10.1)
[2023-12-14 07:00] LABS: BLOOD UREA NITROGEN 14.5 mg/dL (7-18); MAGNESIUM 2.1 mg/dL (1.8-2.4)
[2023-12-14 07:03] LABS: CREATININE 0.7 mg/dL (0.55-1.3); PHOSPHOROUS 2.7 mg/dL (2.5-4.9)
[2023-12-14 07:04] LABS: BILIRUBIN,TOTAL 0.7 mg/dL (0.2-1); TOT PROT 6.1 g/dl (6.4-8.2)
[2023-12-14] MEDS: BUDESONIDE 0.25 MG/2ML INH SUSP VIAL NEB SCH (08:50)
[2023-12-14] MEDS ORDERED: BISACODYL 10 MG SUPP.RECT PR PRN (10:00)
[2023-12-14] MEDS: MUPIROCIN 2% TOPICAL OINTMENT FOR DECOLONIZATION NS SCH (10:04)
[2023-12-14] MEDS: levETIRAcetam 500 MG/5 ML ORAL SOLUTION (UNIT-DOSE CUPS) PEG SCH (10:05)
[2023-12-14] MEDS: NOREPINEPHRINE BITARTRATE 4,000 MCG in DEXTROSE 5%-WATER - 496 ML IV SCH (11:30)
[2023-12-14] MEDS ORDERED: NOREPINEPHRINE BITARTRATE 4 MG/4 ML ML IV ONE (11:40)
[2023-12-14] MEDS: ALBUTEROL SO4 2.5/IPRATROPIUM 0.5 INH SOL 3 ML VIAL.NEB. NEB SCH (12:41)
[2023-12-14] MEDS: MIDODRINE HCL 5 MG TABLET PEG SCH (13:26)
[2023-12-14] MEDS: methylPREDNISolone NA SUCC 40 MG/1 ML VIAL IVPUSH SCH (13:29)
[2023-12-14] MEDS: SCOPOLAMINE HYDROBROMIDE 1 PATCH PATCH.TD72 TD SCH (16:43)
[2023-12-15 06:51] LABS: BASO % 0.2 % (0-2.0); HEMATOCRIT 25.5 % (35.4-49); HEMOGLOBIN 8.7 GM/dL (11.7-16.9); LYMPH % 10.7 % (8-40); MCH 33.7 pg (25.7-33.7); MCHC 34.3 g/dl (32.0-35.9); MEAN CELL VOLUME 98.2 fl (80-96); MEAN PLT VOLUME 9.2 fl (7.5-11.1); MONO % 5.4 % (3.8-10.2); NEUT % 83.7 % (42.8-82.8); PLATELET COUNT 126 10^3/uL (134-434); RDW 18.6 % (11.9-15.9); WHITE BLOOD COUNT 8.3 K/mm3 (4.0-10.0)
[2023-12-15 07:26] LABS: POTASSIUM 3.1 mmol/L (3.5-5.1)
[2023-12-15 07:30] LABS: CALCIUM 8.9 mg/dL (8.5-10.1)
[2023-12-15 07:31] LABS: ALBUMIN 2.7 g/dl (3.4-5.0); MAGNESIUM 2.1 mg/dL (1.8-2.4)
[2023-12-15 07:34] LABS: PHOSPHOROUS 2.2 mg/dL (2.5-4.9)
[2023-12-15 07:36] LABS: BILIRUBIN,TOTAL 0.7 mg/dL (0.2-1); TOT PROT 6.9 g/dl (6.4-8.2)
[2023-12-15] MEDS: KCL 10 MEQ IVPB 10 MEQ/100 ML INFUS.BAG IVPB SCH (09:08)
[2023-12-15] MEDS: NAPH,MB-DB/K PH,MBDB POWDER PACKET PO ONE (09:09)
[2023-12-15] MEDS: POTASSIUM CHLORIDE ORAL LIQUID 20 MEQ/15 ML PO ONE (14:48)
[2023-12-16 06:51] LABS: HEMATOCRIT 26.9 % (35.4-49); MCH 33.1 pg (25.7-33.7); MCHC 33.2 g/dl (32.0-35.9); MEAN CELL VOLUME 99.6 fl (80-96); MEAN PLT VOLUME 9.3 fl (7.5-11.1); PLATELET COUNT 150 10^3/uL (134-434)
[2023-12-16 07:12] LABS: POTASSIUM 4.2 mmol/L (3.5-5.1)
[2023-12-16 07:17] LABS: CALCIUM 9.3 mg/dL (8.5-10.1)
[2023-12-16 07:18] LABS: ALBUMIN 2.8 g/dl (3.4-5.0); BLOOD UREA NITROGEN 10.2 mg/dL (7-18); MAGNESIUM 2.2 mg/dL (1.8-2.4)
[2023-12-16 07:21] LABS: CREATININE 0.7 mg/dL (0.55-1.3); PHOSPHOROUS 2.8 mg/dL (2.5-4.9)
[2023-12-16 07:22] LABS: BILIRUBIN,TOTAL 0.5 mg/dL (0.2-1)
[2023-12-16] MEDS: MIDODRINE HCL 5 MG TABLET PEG SCH (10:08)
[2023-12-16 13:43] LABS: BASO % 0.3 % (0-2.0); EOS % 1.3 % (0-4.5); HEMATOCRIT 26.3 % (35.4-49); HEMOGLOBIN 8.8 GM/dL (11.7-16.9); LYMPH % 18.5 % (8-40); MCH 32.8 pg (25.7-33.7); MCHC 33.3 g/dl (32.0-35.9); MEAN CELL VOLUME 98.5 fl (80-96); MEAN PLT VOLUME 9.3 fl (7.5-11.1); MONO % 2.2 % (3.8-10.2); NEUT % 77.7 % (42.8-82.8); PLATELET COUNT 152 10^3/uL (134-434); RBC 2.67 M/mm3 (4.00-5.60); RDW 18.7 % (11.9-15.9); WHITE BLOOD COUNT 3.6 K/mm3 (4.0-10.0)
[2023-12-16] MEDS ORDERED: ACETAMINOPHEN 1000 MG/100 ML BAG IVPB PRN (14:54)
[2023-12-16] MEDS ORDERED: BISACODYL 10 MG SUPP.RECT PR PRN (16:37)
[2023-12-16] MEDS: PIPERACILLIN/TAZOB 3.375 GM 3.375 GM in DEXTROSE 5%-WATER - 50 ML IVPB SCH (18:27)
[2023-12-16] MEDS: BUDESONIDE 0.25 MG/2ML INH SUSP VIAL NEB SCH (20:00)
[2023-12-16] MEDS: ALBUTEROL SO4 2.5/IPRATROPIUM 0.5 INH SOL 3 ML VIAL.NEB. NEB SCH (20:00)
[2023-12-16] MEDS ORDERED: MUPIROCIN 2% TOPICAL OINTMENT FOR DECOLONIZATION NS SCH (22:00)
[2023-12-16] MEDS ORDERED: CHLORHEXIDINE GLUCONATE 4% CLEANSER FOR DECOLONIZATION TP SCH (22:00)
[2023-12-16] MEDS: HEPARIN NA (PORCINE) 5,000 UNITS/ML 1ML VIAL SQ SCH (22:17)
[2023-12-16] MEDS: BACLOFEN 10 MG TABLET (FP) PEG SCH (22:17)
[2023-12-16] MEDS: levETIRAcetam 500 MG/5 ML ORAL SOLUTION (UNIT-DOSE CUPS) PEG SCH (22:17)
[2023-12-17 09:57] LABS: HEMATOCRIT 25.5 % (35.4-49); HEMOGLOBIN 8.6 GM/dL (11.7-16.9); MCHC 33.6 g/dl (32.0-35.9); MEAN CELL VOLUME 98.3 fl (80-96); MEAN PLT VOLUME 9.2 fl (7.5-11.1); PLATELET COUNT 174 10^3/uL (134-434); RDW 19.2 % (11.9-15.9)
[2023-12-17 10:16] LABS: ALBUMIN 2.9 g/dl (3.4-5.0); BLOOD UREA NITROGEN 13.3 mg/dL (7-18); CALCIUM 9.6 mg/dL (8.5-10.1)
[2023-12-17 10:19] LABS: CREATININE 0.7 mg/dL (0.55-1.3)
[2023-12-17 10:21] LABS: BILIRUBIN,TOTAL 0.3 mg/dL (0.2-1)
[2023-12-17] MEDS: KCL 10 MEQ IVPB 10 MEQ/100 ML INFUS.BAG IVPB SCH (14:29)
[2023-12-17] MEDS: methylPREDNISolone NA SUCC 40 MG/1 ML VIAL IVPUSH SCH (14:29)
[2023-12-17 15:54] VITALS: BMI 29.8
[2023-12-17] MEDS: SCOPOLAMINE HYDROBROMIDE 1 PATCH PATCH.TD72 TD SCH (17:13)
[2023-12-18 07:54] LABS: POTASSIUM 3.5 mmol/L (3.5-5.1)
[2023-12-18 08:03] LABS: CALCIUM 9.4 mg/dL (8.5-10.1)
[2023-12-18 08:04] LABS: ALBUMIN 2.9 g/dl (3.4-5.0); MAGNESIUM 1.9 mg/dL (1.8-2.4)
[2023-12-18 08:06] LABS: CREATININE 0.8 mg/dL (0.55-1.3)
[2023-12-18 08:08] LABS: BILIRUBIN,TOTAL 0.4 mg/dL (0.2-1); TOT PROT 6.8 g/dl (6.4-8.2)
[2023-12-18 08:33] LABS: BASO % 0.1 % (0-2.0); EOS % 0.5 % (0-4.5); HEMATOCRIT 25.5 % (35.4-49); HEMOGLOBIN 8.7 GM/dL (11.7-16.9); LYMPH % 23.5 % (8-40); MCH 33.4 pg (25.7-33.7); MEAN CELL VOLUME 98.3 fl (80-96); MEAN PLT VOLUME 9.2 fl (7.5-11.1); MONO % 9.1 % (3.8-10.2); NEUT % 66.8 % (42.8-82.8); PLATELET COUNT 205 10^3/uL (134-434); RBC 2.59 M/mm3 (4.00-5.60); RDW 18.7 % (11.9-15.9); WHITE BLOOD COUNT 6.8 K/mm3 (4.0-10.0)
[2023-12-18] MEDS: MIDODRINE HCL 5 MG TABLET PEG SCH (14:43)
[2023-12-19 08:30] LABS: BASO % 0.3 % (0-2.0); EOS % 0.7 % (0-4.5); HEMATOCRIT 25.2 % (35.4-49); HEMOGLOBIN 8.7 GM/dL (11.7-16.9); LYMPH % 35.6 % (8-40); MCHC 34.3 g/dl (32.0-35.9); MEAN PLT VOLUME 8.7 fl (7.5-11.1); MONO % 11.7 % (3.8-10.2); NEUT % 51.7 % (42.8-82.8); PLATELET COUNT 255 10^3/uL (134-434); RBC 2.55 M/mm3 (4.00-5.60); RDW 18.9 % (11.9-15.9); WHITE BLOOD COUNT 7.4 K/mm3 (4.0-10.0)
[2023-12-19 08:46] LABS: POTASSIUM 3.4 mmol/L (3.5-5.1)
[2023-12-19 08:51] LABS: CALCIUM 9.2 mg/dL (8.5-10.1)
[2023-12-19 08:52] LABS: BLOOD UREA NITROGEN 12.2 mg/dL (7-18); MAGNESIUM 2.1 mg/dL (1.8-2.4)
[2023-12-19 08:55] LABS: BILIRUBIN,TOTAL 0.3 mg/dL (0.2-1); CREATININE 0.9 mg/dL (0.55-1.3)
[2023-12-19 08:56] LABS: TOT PROT 7.1 g/dl (6.4-8.2)
[2023-12-19] MEDS: POTASSIUM CHLORIDE ORAL LIQUID 20 MEQ/15 ML GT ONE (14:14)
[2023-12-20] MEDS: DEXTROSE 5%-0.45% SALINE 1,000 ML IV SCH (02:09)
[2023-12-20 08:31] LABS: BASO % 0.4 % (0-2.0); EOS % 0.8 % (0-4.5); HEMATOCRIT 26.7 % (35.4-49); LYMPH % 34.6 % (8-40); MCH 33.5 pg (25.7-33.7); MCHC 33.5 g/dl (32.0-35.9); MEAN CELL VOLUME 99.9 fl (80-96); MEAN PLT VOLUME 8.4 fl (7.5-11.1); NEUT % 53.2 % (42.8-82.8); PLATELET COUNT 312 10^3/uL (134-434); RBC 2.67 M/mm3 (4.00-5.60); RDW 18.9 % (11.9-15.9); WHITE BLOOD COUNT 8.7 K/mm3 (4.0-10.0)
[2023-12-20 08:51] LABS: POTASSIUM 3.8 mmol/L (3.5-5.1)
[2023-12-20 08:54] LABS: BLOOD UREA NITROGEN 13.2 mg/dL (7-18); CALCIUM 9.3 mg/dL (8.5-10.1)
[2023-12-20 08:57] LABS: CREATININE 0.9 mg/dL (0.55-1.3); MAGNESIUM 2.3 mg/dL (1.8-2.4)
[2023-12-20 08:59] LABS: BILIRUBIN,TOTAL 0.4 mg/dL (0.2-1); TOT PROT 7.1 g/dl (6.4-8.2)
[2023-12-20] MEDS: AMINO ACIDS 4.25%/D5W 1,000 ML IV SCH (09:11)
[2023-12-20] MEDS: levETIRAcetam 500 MG/5 ML INJECTION VIAL IVPB SCH (09:47)
[2023-12-22 01:35] VITALS: RESP 18
[2023-12-22 09:49] LABS: BASO % 0.2 % (0-2.0); EOS % 2.7 % (0-4.5); HEMATOCRIT 26.3 % (35.4-49); HEMOGLOBIN 8.9 GM/dL (11.7-16.9); LYMPH % 15.7 % (8-40); MCH 33.7 pg (25.7-33.7); MCHC 33.8 g/dl (32.0-35.9); MEAN CELL VOLUME 99.6 fl (80-96); MEAN PLT VOLUME 8.5 fl (7.5-11.1); MONO % 6.3 % (3.8-10.2); NEUT % 75.1 % (42.8-82.8); PLATELET COUNT 347 10^3/uL (134-434); RBC 2.64 M/mm3 (4.00-5.60); RDW 19.2 % (11.9-15.9); WHITE BLOOD COUNT 7.1 K/mm3 (4.0-10.0)
[2023-12-22 09:54] LABS: INR 1.07 (0.83-1.09); PROTHROMBIN TIME (PATIENT) 12.3 SEC (9.7-13.0)
[2023-12-22 10:05] LABS: POTASSIUM 3.3 mmol/L (3.5-5.1)
[2023-12-22 10:13] LABS: ALBUMIN 2.8 g/dl (3.4-5.0); BLOOD UREA NITROGEN 16.1 mg/dL (7-18); CALCIUM 8.9 mg/dL (8.5-10.1)
[2023-12-22 10:16] LABS: CREATININE 0.5 mg/dL (0.55-1.3)
[2023-12-22 10:17] LABS: MAGNESIUM 2.1 mg/dL (1.8-2.4)
[2023-12-22 10:18] LABS: BILIRUBIN,TOTAL 0.5 mg/dL (0.2-1); TOT PROT 6.9 g/dl (6.4-8.2)
[2023-12-22] MEDS: POTASSIUM CHLORIDE ORAL LIQUID 20 MEQ/15 ML PO ONE (11:14)
[2023-12-23 06:49] VITALS: PULSE 90
[2023-12-23 09:42] LABS: BASO % 0.8 % (0-2.0); EOS % 4.9 % (0-4.5); HEMATOCRIT 26.3 % (35.4-49); HEMOGLOBIN 8.9 GM/dL (11.7-16.9); LYMPH % 44.1 % (8-40); MCH 33.6 pg (25.7-33.7); MCHC 33.6 g/dl (32.0-35.9); MEAN CELL VOLUME 99.8 fl (80-96); MEAN PLT VOLUME 8.2 fl (7.5-11.1); MONO % 10.1 % (3.8-10.2); NEUT % 40.1 % (42.8-82.8); PLATELET COUNT 366 10^3/uL (134-434); RBC 2.64 M/mm3 (4.00-5.60); RDW 19.5 % (11.9-15.9); WHITE BLOOD COUNT 4.8 K/mm3 (4.0-10.0)
[2023-12-23 10:01] LABS: POTASSIUM 3.9 mmol/L (3.5-5.1)
[2023-12-23 10:15] LABS: ALBUMIN 2.8 g/dl (3.4-5.0); BLOOD UREA NITROGEN 13.9 mg/dL (7-18); CALCIUM 9.3 mg/dL (8.5-10.1)
[2023-12-23 10:19] LABS: CREATININE 0.5 mg/dL (0.55-1.3)
[2023-12-23 10:20] LABS: BILIRUBIN,TOTAL 0.4 mg/dL (0.2-1); TOT PROT 6.9 g/dl (6.4-8.2)
[2023-12-23 10:26] VITALS: BP 140/78; TEMP 98
== END 2023-12-23 11:09 | DRG 871 ==
LOC: JER 16:09 → JICU 20:14 → J8W 12-16 14:54
PROVIDERS: ADMIT Internal Medicine Pulmonary Disease; ATTEND Nurse Practitioner Acute Care
PROC: 0D20XUZ Change Feeding Device in Upper Intestinal Tract, External Approach (ICD-10-PCS; principal; 2023-12-21)
DX: A41.89 Other specified sepsis (principal); J69.0 Pneumonitis due to inhalation of food and vomit; R65.21 Severe sepsis with septic shock; J96.21 Acute and chronic respiratory failure with hypoxia; F73 Profound intellectual disabilities; G93.1 Anoxic brain damage, not elsewhere classified; N39.0 Urinary tract infection, site not specified; K94.23 Gastrostomy malfunction; G40.909 Epilepsy, unspecified, not intractable, without status epilepticus; E87.6 Hypokalemia; R68.0 Hypothermia, not associated with low environmental temperature; R00.1 Bradycardia, unspecified; R33.9 Retention of urine, unspecified; K59.00 Constipation, unspecified; B95.2 Enterococcus as the cause of diseases classified elsewhere; Q02 Microcephaly; M41.80 Other forms of scoliosis, site unspecified; Z93.0 Tracheostomy status; Z99.81 Dependence on supplemental oxygen
CPT/HCPCS: 0241U-QW; 36415; 36600; 71045-TC-FY; 74018-TC-FY; 76700-TC; 76856-TC; 80053; 81003; 82728; 82803; 82962; 83540; 83605; 83735; 83880; 84100; 84132; 84484; 85025; 85027; 85610; 85730; 86850; 86900; 86901; 87040; 87070; 87086; 87186; 87205; 87635; 87899; 93005; 93010; 94640; 99285-25; J0475; J1644

== ENCOUNTER 2024-01-29 11:06 | Inpatient (IN) | payer OTHER ==
[2024-01-29 12:13] LABS: BASO % 0.4 % (0-2.0); EOS % 3.2 % (0-4.5); HEMATOCRIT 33.1 % (35.4-49); HEMOGLOBIN 11.2 GM/dL (11.7-16.9); LYMPH % 34.5 % (8-40); MCHC 33.9 g/dl (32.0-35.9); MEAN CELL VOLUME 100.3 fl (80-96); MEAN PLT VOLUME 10.4 fl (7.5-11.1); MONO % 4.9 % (3.8-10.2); PLATELET COUNT 159 10^3/uL (134-434); RDW 15.8 % (11.9-15.9); WHITE BLOOD COUNT 2.9 K/mm3 (4.0-10.0)
[2024-01-29 12:17] LABS: INR 0.93 (0.83-1.09); PROTHROMBIN TIME (PATIENT) 10.7 SEC (9.7-13.0)
[2024-01-29 12:20] LABS: ACTIVATED PTT 30.2 SECONDS (25.2-36.5)
[2024-01-29 12:25] LABS: POTASSIUM 3.9 mmol/L (3.5-5.1); VENOUS BASE EXCESS 5.9 mmol/L (-2-2); VENOUS O2 SATURATION 84.5 % (70-80); VENOUS PCO2 57.7 mmHg (38-52); VENOUS PH 7.366 (7.310-7.410)
[2024-01-29 12:27] LABS: CALCIUM 9.4 mg/dL (8.5-10.1)
[2024-01-29 12:28] LABS: ALBUMIN 3.4 g/dl (3.4-5.0); BLOOD UREA NITROGEN 16.9 mg/dL (7-18)
[2024-01-29 12:31] LABS: CREATININE 0.5 mg/dL (0.55-1.3)
[2024-01-29 12:32] LABS: BILIRUBIN,TOTAL 0.2 mg/dL (0.2-1); TOT PROT 8.2 g/dl (6.4-8.2)
[2024-01-29 12:34] LABS: PH,URINE 7.5 (5.0-8.0); URINE APPEARANCE CLEAR; URINE BILIRUBIN NEGATIVE (NEGATIVE); URINE COLOR YELLOW; URINE GLUCOSE (UA) NEGATIVE (NEGATIVE); URINE KETONE NEGATIVE (NEGATIVE); URINE LEUK ESTERASE 3+ (NEGATIVE); URINE NITRITE NEGATIVE (NEGATIVE); URINE PROTEIN NEGATIVE (NEGATIVE); URINE UROBILINOGEN 0.2 mg/dL (0.2-1.0)
[2024-01-29] MEDS: SODIUM CHLORIDE 0.9% 1000 ML INFUS.BAG IV STA (12:50)
[2024-01-29] MEDS ORDERED: PIPERACILLIN/TAZOB 3.375 GM 3.375 GM/50 ML BAG IVPB ONE (12:53)
[2024-01-29] MEDS ORDERED: VANCOMYCIN 1 GRAM (PRE-DOCKED) 1,000 MG/250 ML BAG IVPB ONE (12:54)
[2024-01-29] MEDS: PIPERACILLIN/TAZOB 3.375 GM 3.375 GM in DEXTROSE 5%-WATER - 50 ML IVPB ONE (13:03)
[2024-01-29 13:06] LABS: EPI CELLS 0 /uL (0-25.1); HYALINE CASTS 1 /uL (0-3.1); URINE BACTERIA 2472 /uL (0-1359); URINE RBC 18 /uL (0-23.9); URINE WBC 185 /uL (0-25.8)
[2024-01-29] MEDS: VANCOMYCIN 1,000 MG in DEXTROSE 5%-WATER - 250 ML IVPB ONE (13:17)
[2024-01-29] MEDS: SODIUM CHLORIDE 250 ML IV STA (13:50)
[2024-01-29] MEDS ORDERED: BISACODYL 10 MG SUPP.RECT PR PRN (15:17)
[2024-01-29] MEDS ORDERED: ACETAMINOPHEN 650 MG/20.3 ML ORAL SOLUTION (CUPS) GT PRN (15:17)
[2024-01-29] MEDS: D5-1/2NS+20 MEQ KCL - 20 MEQ/1,000 ML INFUS.BAG IV SCH (16:11)
[2024-01-29] MEDS ORDERED: SCOPOLAMINE HYDROBROMIDE 1 PATCH PATCH.TD72 ONE (16:43)
[2024-01-29] MEDS: SCOPOLAMINE HYDROBROMIDE 1 PATCH PATCH.TD72 TD SCH (16:46)
[2024-01-29] MEDS: SCOPOLAMINE HYDROBROMIDE 1 PATCH PATCH.TD72 TP SCH (16:48)
[2024-01-29] MEDS: BUDESONIDE 0.25 MG/2ML INH SUSP VIAL NEB SCH (20:10)
[2024-01-29] MEDS: ALBUTEROL SO4 2.5/IPRATROPIUM 0.5 INH SOL 3 ML VIAL.NEB. NEB SCH (20:10)
[2024-01-29] MEDS: POLYETHYLENE GLYCOL (HEALTHYLAX) 3350 17 GM PACKET GT SCH (21:24)
[2024-01-29] MEDS: levETIRAcetam 500 MG/5 ML ORAL SOLUTION (UNIT-DOSE CUPS) PEG SCH (21:24)
[2024-01-29] MEDS: HEPARIN NA (PORCINE) 5,000 UNITS/ML 1ML VIAL SQ SCH (21:24)
[2024-01-29] MEDS: BACLOFEN 10 MG TABLET (FP) PEG SCH (21:25)
[2024-01-29] MEDS: MAG HYDROX/AL HYDROX/SIMETH 30 ML UNIT-DOSE CUP GT SCH (21:25)
[2024-01-29] MEDS: SENNOSIDES 8.8 MG/5 ML SYRUP GT SCH (21:26)
[2024-01-29] MEDS: MUPIROCIN 2% TOPICAL OINTMENT 22 GM TUBE TP SCH (22:28)
[2024-01-29] MEDS: SIMETHICONE 40 MG/0.6 ML BOTTLE GT SCH (22:28)
[2024-01-29] MEDS: ZINC OXIDE 20% TOPICAL OINTMENT 30 GM TUBE TP SCH (23:17)
[2024-01-30] MEDS: PIPERACILLIN/TAZOB 4.5 GM 4.5 GM in DEXTROSE 5%-WATER 100 ML IVPB SCH (02:23)
[2024-01-30] MEDS ORDERED: PATIENT'S OWN MEDICATION (NON-FORMULARY) (Linaclotide 145 MCG Capsule) PO SCH (07:00)
[2024-01-30] MEDS: MIDODRINE HCL 2.5 MG TABLET GT SCH (08:00)
[2024-01-30 09:06] LABS: BASO % 0.1 % (0-2.0); EOS % 1.4 % (0-4.5); HEMATOCRIT 30.4 % (35.4-49); HEMOGLOBIN 10.3 GM/dL (11.7-16.9); LYMPH % 10.7 % (8-40); MCH 34.1 pg (25.7-33.7); MCHC 33.9 g/dl (32.0-35.9); MEAN CELL VOLUME 100.6 fl (80-96); MEAN PLT VOLUME 9.8 fl (7.5-11.1); MONO % 6.3 % (3.8-10.2); NEUT % 81.5 % (42.8-82.8); PLATELET COUNT 133 10^3/uL (134-434); RBC 3.02 M/mm3 (4.00-5.60); RDW 15.6 % (11.9-15.9); WHITE BLOOD COUNT 7.9 K/mm3 (4.0-10.0)
[2024-01-30 09:24] LABS: ALBUMIN 3.1 g/dl (3.4-5.0); BLOOD UREA NITROGEN 8.8 mg/dL (7-18); CALCIUM 8.9 mg/dL (8.5-10.1)
[2024-01-30] MEDS: CHOLECALCIFEROL (VIT D3) 1,000 UNIT (25 MCG) TABLET GT SCH (09:26)
[2024-01-30 09:27] LABS: CREATININE 0.5 mg/dL (0.55-1.3)
[2024-01-30 09:29] LABS: BILIRUBIN,TOTAL 0.5 mg/dL (0.2-1); TOT PROT 7.4 g/dl (6.4-8.2)
[2024-01-31 10:52] LABS: BASO % 0.2 % (0-2.0); EOS % 1.3 % (0-4.5); HEMATOCRIT 29.6 % (35.4-49); MCH 34.2 pg (25.7-33.7); MCHC 33.8 g/dl (32.0-35.9); MEAN CELL VOLUME 101.2 fl (80-96); MEAN PLT VOLUME 10.3 fl (7.5-11.1); MONO % 11.3 % (3.8-10.2); NEUT % 67.2 % (42.8-82.8); PLATELET COUNT 131 10^3/uL (134-434); RBC 2.92 M/mm3 (4.00-5.60); RDW 15.7 % (11.9-15.9); WHITE BLOOD COUNT 4.1 K/mm3 (4.0-10.0)
[2024-01-31 11:18] LABS: POTASSIUM 3.9 mmol/L (3.5-5.1)
[2024-01-31 11:21] LABS: CALCIUM 8.8 mg/dL (8.5-10.1)
[2024-01-31 11:22] LABS: ALBUMIN 2.7 g/dl (3.4-5.0); BLOOD UREA NITROGEN 6.4 mg/dL (7-18)
[2024-01-31 11:25] LABS: CREATININE 0.6 mg/dL (0.55-1.3)
[2024-01-31 11:26] LABS: BILIRUBIN,TOTAL 0.3 mg/dL (0.2-1); TOT PROT 6.9 g/dl (6.4-8.2)
[2024-01-31 11:29] VITALS: BMI 27.9
[2024-01-31 18:49] LABS: MAGNESIUM 2.2 mg/dL (1.8-2.4)
[2024-02-01 10:00] LABS: BASO % 0.4 % (0-2.0); LYMPH % 33.9 % (8-40); MCH 34.5 pg (25.7-33.7); MCHC 34.3 g/dl (32.0-35.9); MEAN CELL VOLUME 100.7 fl (80-96); MONO % 14.9 % (3.8-10.2); NEUT % 46.8 % (42.8-82.8); PLATELET COUNT 140 10^3/uL (134-434); RBC 2.88 M/mm3 (4.00-5.60); RDW 15.4 % (11.9-15.9); WHITE BLOOD COUNT 3.8 K/mm3 (4.0-10.0)
[2024-02-01 11:21] LABS: POTASSIUM 3.8 mmol/L (3.5-5.1)
[2024-02-01 11:26] LABS: CALCIUM 9.5 mg/dL (8.5-10.1)
[2024-02-01 11:27] LABS: ALBUMIN 2.8 g/dl (3.4-5.0); BLOOD UREA NITROGEN 6.8 mg/dL (7-18)
[2024-02-01 11:29] LABS: CREATININE 0.6 mg/dL (0.55-1.3); PHOSPHOROUS 2.2 mg/dL (2.5-4.9)
[2024-02-01 11:31] LABS: BILIRUBIN,TOTAL 0.3 mg/dL (0.2-1)
[2024-02-01 11:32] LABS: TOT PROT 6.9 g/dl (6.4-8.2)
[2024-02-01] MEDS: AMOX TR/POT CLAV 875MG/125MG TABLETS (FP) PO SCH (17:59)
[2024-02-02 10:22] LABS: BASO % 0.4 % (0-2.0); HEMATOCRIT 30.3 % (35.4-49); HEMOGLOBIN 10.2 GM/dL (11.7-16.9); LYMPH % 41.1 % (8-40); MCHC 33.6 g/dl (32.0-35.9); MEAN CELL VOLUME 101.1 fl (80-96); MEAN PLT VOLUME 10.2 fl (7.5-11.1); MONO % 12.3 % (3.8-10.2); NEUT % 42.2 % (42.8-82.8); PLATELET COUNT 165 10^3/uL (134-434); RDW 15.8 % (11.9-15.9); WHITE BLOOD COUNT 4.6 K/mm3 (4.0-10.0)
[2024-02-02 10:41] LABS: POTASSIUM 3.5 mmol/L (3.5-5.1)
[2024-02-02 10:46] LABS: ALBUMIN 2.9 g/dl (3.4-5.0); BLOOD UREA NITROGEN 11.7 mg/dL (7-18); CALCIUM 9.4 mg/dL (8.5-10.1)
[2024-02-02 10:47] LABS: MAGNESIUM 1.8 mg/dL (1.8-2.4)
[2024-02-02 10:49] LABS: BILIRUBIN,TOTAL 0.3 mg/dL (0.2-1); CREATININE 0.5 mg/dL (0.55-1.3); TOT PROT 7.2 g/dl (6.4-8.2)
[2024-02-02 10:50] LABS: PHOSPHOROUS 3.3 mg/dL (2.5-4.9)
[2024-02-02] MEDS: AMOX TR/POTASSIUM CLAVULANATE 600 MG/5 ML GT SCH (17:22)
[2024-02-02 21:32] VITALS: RESP 19
[2024-02-03 11:02] VITALS: BP 101/60; PULSE 55; TEMP 98.6
== END 2024-02-03 14:20 | DRG 690 ==
LOC: JER 11:06 → JERBED 14:15 → J6W 19:01 → J5S 02-02 10:58
PROVIDERS: ADMIT Internal Medicine; ATTEND Internal Medicine
DX: N39.0 Urinary tract infection, site not specified (principal); J96.11 Chronic respiratory failure with hypoxia; F73 Profound intellectual disabilities; Q67.5 Congenital deformity of spine; G80.8 Other cerebral palsy; G40.909 Epilepsy, unspecified, not intractable, without status epilepticus; R68.0 Hypothermia, not associated with low environmental temperature; F79 Unspecified intellectual disabilities; R79.89 Other specified abnormal findings of blood chemistry; Q02 Microcephaly; R00.1 Bradycardia, unspecified; K59.00 Constipation, unspecified; Z99.81 Dependence on supplemental oxygen; Z93.0 Tracheostomy status
CPT/HCPCS: 0241U-QW; 36415; 71045-TC-FY; 74019-TC-FY; 80053; 81003; 82024; 82533; 82803; 83605; 83735; 84100; 84439; 84443; 84484; 85025; 85610; 85730; 86850; 86900; 86901; 87040; 87086; 87186; 87635; 93005; 93010; 94640; 99285-25; J0475; J1644

== ENCOUNTER 2024-02-03 21:01 | Inpatient (IN) | payer OTHER ==
[2024-02-03 23:13] LABS: HEMATOCRIT 32.3 % (35.4-49); HEMOGLOBIN 10.8 GM/dL (11.7-16.9); MCH 33.9 pg (25.7-33.7); MCHC 33.4 g/dl (32.0-35.9); MEAN CELL VOLUME 101.4 fl (80-96); PLATELET COUNT 167 10^3/uL (134-434); RBC 3.18 M/mm3 (4.00-5.60); RDW 15.2 % (11.9-15.9); WHITE BLOOD COUNT 3.6 K/mm3 (4.0-10.0)
[2024-02-03 23:14] LABS: BASO % 0.6 % (0-2.0); EOS % 7.5 % (0-4.5); LYMPH % 44.3 % (8-40); MONO % 10.9 % (3.8-10.2); NEUT % 36.7 % (42.8-82.8)
[2024-02-03 23:31] LABS: POTASSIUM 3.7 mmol/L (3.5-5.1)
[2024-02-03 23:33] LABS: ALBUMIN 3.2 g/dl (3.4-5.0); BLOOD UREA NITROGEN 19.1 mg/dL (7-18); CALCIUM 9.4 mg/dL (8.5-10.1); MAGNESIUM 2.1 mg/dL (1.8-2.4)
[2024-02-03 23:37] LABS: CREATININE 0.5 mg/dL (0.55-1.3)
[2024-02-03 23:38] LABS: BILIRUBIN,TOTAL 0.3 mg/dL (0.2-1); TOT PROT 7.9 g/dl (6.4-8.2)
[2024-02-04] MEDS: SODIUM CHLORIDE 1,000 ML IV STA (02:15)
[2024-02-04 06:09] LABS: URINE APPEARANCE CLEAR; URINE BILIRUBIN NEGATIVE (NEGATIVE); URINE COLOR YELLOW; URINE GLUCOSE (UA) NEGATIVE (NEGATIVE); URINE KETONE NEGATIVE (NEGATIVE); URINE LEUK ESTERASE NEGATIVE (NEGATIVE); URINE NITRITE NEGATIVE (NEGATIVE); URINE PROTEIN NEGATIVE (NEGATIVE); URINE UROBILINOGEN 0.2 mg/dL (0.2-1.0)
[2024-02-04] MEDS ORDERED: ALBUTEROL SO4 0.083% IH SOL 2.5 MG/3 ML VIAL.NEB. NEB PRN (06:44)
[2024-02-04] MEDS ORDERED: ALBUTEROL SO4 2.5/IPRATROPIUM 0.5 INH SOL 3 ML VIAL.NEB. NEB PRN (06:44)
[2024-02-04] MEDS ORDERED: BISACODYL 10 MG SUPP.RECT PR PRN ×2 (06:49)
[2024-02-04] MEDS ORDERED: PATIENT'S OWN MEDICATION (NON-FORMULARY) (Linaclotide 145 MCG Capsule) PO SCH (07:00)
[2024-02-04] MEDS ORDERED: BACLOFEN 10 MG TABLET (FP) PEG SCH (07:00)
[2024-02-04] MEDS ORDERED: MAG HYDROX/AL HYDROX/SIMETH 30 ML UNIT-DOSE CUP GT PRN (07:35)
[2024-02-04 08:31] LABS: POTASSIUM 3.6 mmol/L (3.5-5.1)
[2024-02-04 08:33] LABS: HEMATOCRIT 28.3 % (35.4-49); HEMOGLOBIN 9.4 GM/dL (11.7-16.9); MCH 34.1 pg (25.7-33.7); MCHC 33.2 g/dl (32.0-35.9); MEAN CELL VOLUME 102.7 fl (80-96); MEAN PLT VOLUME 9.4 fl (7.5-11.1); PLATELET COUNT 159 10^3/uL (134-434); RBC 2.76 M/mm3 (4.00-5.60); RDW 14.7 % (11.9-15.9); WHITE BLOOD COUNT 5.9 K/mm3 (4.0-10.0)
[2024-02-04 08:40] LABS: BLOOD UREA NITROGEN 20.1 mg/dL (7-18)
[2024-02-04 08:43] LABS: PHOSPHOROUS 3.8 mg/dL (2.5-4.9)
[2024-02-04 08:44] LABS: CREATININE 0.4 mg/dL (0.55-1.3)
[2024-02-04 08:47] LABS: ALBUMIN 2.8 g/dl (3.4-5.0)
[2024-02-04 08:50] LABS: BILIRUBIN,DIRECT 0.2 mg/dL (0.0-0.2)
[2024-02-04 08:51] LABS: BILIRUBIN,TOTAL 0.4 mg/dL (0.2-1); TOT PROT 6.7 g/dl (6.4-8.2)
[2024-02-04] MEDS: levETIRAcetam 500 MG/5 ML ORAL SOLUTION (UNIT-DOSE CUPS) PEG SCH (10:26)
[2024-02-04] MEDS: AMOX TR/POTASSIUM CLAVULANATE 600 MG/5 ML GT SCH (10:26)
[2024-02-04] MEDS ORDERED: BACLOFEN 10 MG TABLET (FP) ONE ×3 (10:31→23:17)
[2024-02-04] MEDS ORDERED: ALBUTEROL SO4 2.5/IPRATROPIUM 0.5 INH SOL 3 ML VIAL.NEB. NEB ONE (10:31)
[2024-02-04] MEDS ORDERED: MIDODRINE HCL 5 MG TABLET ONE ×3 (10:31→19:13)
[2024-02-04] MEDS ORDERED: POLYETHYLENE GLYCOL (HEALTHYLAX) 3350 17 GM PACKET ONE ×2 (10:31→23:17)
[2024-02-04] MEDS ORDERED: ENOXAPARIN NA (PORCINE) 40 MG/0.4 ML DISP.SYRIN SQ ONE (10:32)
[2024-02-04] MEDS: BACLOFEN 10 MG TABLET (FP) GT SCH (11:04)
[2024-02-04] MEDS: ENOXAPARIN NA (PORCINE) 40 MG/0.4 ML DISP.SYRIN SQ SCH (11:07)
[2024-02-04] MEDS: POLYETHYLENE GLYCOL (HEALTHYLAX) 3350 17 GM PACKET GT SCH (11:07)
[2024-02-04] MEDS: ALBUTEROL SO4 2.5/IPRATROPIUM 0.5 INH SOL 3 ML VIAL.NEB. NEB SCH (11:08)
[2024-02-04] MEDS: MIDODRINE HCL 5 MG TABLET PEG SCH (11:08)
[2024-02-04] MEDS: BUDESONIDE 0.25 MG/2ML INH SUSP VIAL NEB SCH (11:13)
[2024-02-04] MEDS ORDERED: MAG HYDROX/AL HYDROX/SIMETH 30 ML UNIT-DOSE CUP PO SCH (14:00)
[2024-02-04] MEDS ORDERED: MAG HYDROX/AL HYDROX/SIMETH 30 ML UNIT-DOSE CUP GT SCH (14:00)
[2024-02-04] MEDS ORDERED: MAG HYDROX/AL HYDROX/SIMETH 30 ML UNIT-DOSE CUP ONE ×2 (14:15→23:19)
[2024-02-04] MEDS: MAG HYDROX/AL HYDROX/SIMETH 30 ML UNIT-DOSE CUP PO SCH (14:26)
[2024-02-04] MEDS: SIMETHICONE 40 MG/0.6 ML BOTTLE GT SCH (14:26)
[2024-02-04] MEDS: ZINC OXIDE 20% TOPICAL OINTMENT 30 GM TUBE TP SCH (15:49)
[2024-02-04] MEDS: SENNOSIDES 8.8 MG/5 ML SYRUP GT SCH (23:15)
[2024-02-05] MEDS ORDERED: MAG HYDROX/AL HYDROX/SIMETH 30 ML UNIT-DOSE CUP ONE ×3 (05:43→22:32)
[2024-02-05] MEDS ORDERED: BACLOFEN 10 MG TABLET (FP) ONE ×3 (05:43→22:31)
[2024-02-05 07:40] LABS: BASO % 0.7 % (0-2.0); EOS % 7.4 % (0-4.5); HEMATOCRIT 29.2 % (35.4-49); HEMOGLOBIN 9.8 GM/dL (11.7-16.9); LYMPH % 38.9 % (8-40); MCH 34.4 pg (25.7-33.7); MCHC 33.7 g/dl (32.0-35.9); MEAN CELL VOLUME 102.2 fl (80-96); MONO % 11.4 % (3.8-10.2); NEUT % 41.6 % (42.8-82.8); PLATELET COUNT 191 10^3/uL (134-434); RBC 2.86 M/mm3 (4.00-5.60); RDW 14.8 % (11.9-15.9); WHITE BLOOD COUNT 4.2 K/mm3 (4.0-10.0)
[2024-02-05 08:09] LABS: POTASSIUM 3.4 mmol/L (3.5-5.1)
[2024-02-05 08:18] LABS: BLOOD UREA NITROGEN 13.8 mg/dL (7-18)
[2024-02-05 08:22] LABS: CREATININE 0.5 mg/dL (0.55-1.3)
[2024-02-05] MEDS ORDERED: POLYETHYLENE GLYCOL (HEALTHYLAX) 3350 17 GM PACKET ONE ×2 (11:44→22:31)
[2024-02-05] MEDS ORDERED: ENOXAPARIN NA (PORCINE) 40 MG/0.4 ML DISP.SYRIN SQ ONE (11:44)
[2024-02-05] MEDS ORDERED: POTASSIUM CHLORIDE ORAL LIQUID 20 MEQ/15 ML ONE (14:40)
[2024-02-05] MEDS: POTASSIUM CHLORIDE ORAL LIQUID 20 MEQ/15 ML GT ONE (14:54)
[2024-02-05] MEDS ORDERED: MIDODRINE HCL 5 MG TABLET ONE (18:35)
[2024-02-05] MEDS ORDERED: ALBUTEROL SO4 2.5/IPRATROPIUM 0.5 INH SOL 3 ML VIAL.NEB. NEB ONE ×2 (18:39→20:15)
[2024-02-05] MEDS: BACITRACIN ZINC 15 GM TUBE TOPICAL OINTMENT TP SCH (19:15)
[2024-02-05] MEDS ORDERED: SENNOSIDES 8.6MG TABLET (FP) PO ONE (22:31)
[2024-02-05] MEDS ORDERED: levETIRAcetam 500 MG TABLET (FP) PO ONE ×2 (22:31→22:51)
[2024-02-06 05:22] VITALS: RESP 18; BMI 26.4
[2024-02-06 09:12] LABS: BASO % 0.5 % (0-2.0); EOS % 3.9 % (0-4.5); HEMATOCRIT 30.1 % (35.4-49); HEMOGLOBIN 10.1 GM/dL (11.7-16.9); LYMPH % 37.3 % (8-40); MCHC 33.4 g/dl (32.0-35.9); MEAN CELL VOLUME 101.7 fl (80-96); MEAN PLT VOLUME 8.9 fl (7.5-11.1); MONO % 9.9 % (3.8-10.2); NEUT % 48.4 % (42.8-82.8); PLATELET COUNT 210 10^3/uL (134-434); RBC 2.96 M/mm3 (4.00-5.60); RDW 14.3 % (11.9-15.9); WHITE BLOOD COUNT 5.3 K/mm3 (4.0-10.0)
[2024-02-06 09:30] LABS: POTASSIUM 3.7 mmol/L (3.5-5.1)
[2024-02-06 09:33] LABS: CALCIUM 9.4 mg/dL (8.5-10.1)
[2024-02-06 09:34] LABS: ALBUMIN 3.3 g/dl (3.4-5.0); BLOOD UREA NITROGEN 13.3 mg/dL (7-18)
[2024-02-06 09:37] LABS: CREATININE 0.6 mg/dL (0.55-1.3)
[2024-02-06 09:38] LABS: BILIRUBIN,TOTAL 0.3 mg/dL (0.2-1); TOT PROT 7.6 g/dl (6.4-8.2)
[2024-02-06 20:23] VITALS: BP 102/51; PULSE 56; TEMP 97.3
== END 2024-02-07 00:15 | disposition home health service (06) | DRG 74 ==
LOC: JER 21:01 → JERBED 02-04 03:12 → OBSVTOIN 02-04 03:12 → J4S 02-06 05:06
PROVIDERS: ADMIT Internal Medicine; ATTEND Nurse Practitioner
DX: G90.9 Disorder of the autonomic nervous system, unspecified (principal); R47.01 Aphasia; Q67.5 Congenital deformity of spine; F79 Unspecified intellectual disabilities; D69.6 Thrombocytopenia, unspecified; I95.9 Hypotension, unspecified; R00.1 Bradycardia, unspecified; R79.89 Other specified abnormal findings of blood chemistry; K59.00 Constipation, unspecified; K59.81 Ogilvie syndrome; G40.909 Epilepsy, unspecified, not intractable, without status epilepticus; G80.8 Other cerebral palsy; K76.0 Fatty (change of) liver, not elsewhere classified; D64.9 Anemia, unspecified; Q02 Microcephaly; R68.0 Hypothermia, not associated with low environmental temperature; Z93.1 Gastrostomy status; Z93.0 Tracheostomy status; Z99.81 Dependence on supplemental oxygen
CPT/HCPCS: 36415; 71045-TC-FY; 76700-TC; 80048; 80053; 80076; 81003; 83605; 83735; 84100; 84443; 84484; 85025; 85027; 87040; 87086; 93005; 93010; 94640; 99285-25; J0475

== ENCOUNTER 2024-03-20 14:38 | Inpatient (IN) | payer OTHER ==
[2024-03-20 15:50] LABS: VENOUS BASE EXCESS 11.2 mmol/L (-2-2); VENOUS O2 SATURATION 99.2 % (70-80); VENOUS PCO2 52.2 mmHg (38-52); VENOUS PH 7.461 (7.310-7.410)
[2024-03-20] MEDS ORDERED: PIPERACILLIN/TAZOB 4.5 GM 4.5 GM/100 ML BAG IVPB ONE (15:51)
[2024-03-20 15:52] LABS: BASO % 0.2 % (0-2.0); EOS % 4.2 % (0-4.5); HEMATOCRIT 26.1 % (35.4-49); HEMOGLOBIN 8.7 GM/dL (11.7-16.9); LYMPH % 30.4 % (8-40); MCH 32.3 pg (25.7-33.7); MCHC 33.2 g/dl (32.0-35.9); MEAN CELL VOLUME 97.3 fl (80-96); MEAN PLT VOLUME 10.6 fl (7.5-11.1); MONO % 5.1 % (3.8-10.2); NEUT % 60.1 % (42.8-82.8); PLATELET COUNT 66 10^3/uL (134-434); RBC 2.68 M/mm3 (4.00-5.60); WHITE BLOOD COUNT 2.3 K/mm3 (4.0-10.0)
[2024-03-20] MEDS: PIPERACILLIN/TAZOB 4.5 GM 4.5 GM in DEXTROSE 5%-WATER 100 ML IVPB ONE (15:57)
[2024-03-20] MEDS ORDERED: VANCOMYCIN 1 GM PREMIX (F) 1 GM/200 ML BAG ONE (16:09)
[2024-03-20 16:18] LABS: INR 0.95 (0.83-1.09); PROTHROMBIN TIME (PATIENT) 10.9 SEC (9.7-13.0)
[2024-03-20 16:21] LABS: ACTIVATED PTT 52.9 SECONDS (25.2-36.5)
[2024-03-20 16:34] LABS: POTASSIUM 4.1 mmol/L (3.5-5.1)
[2024-03-20 16:35] LABS: CALCIUM 9.5 mg/dL (8.5-10.1)
[2024-03-20 16:36] LABS: ALBUMIN 3.1 g/dl (3.4-5.0); BLOOD UREA NITROGEN 23.8 mg/dL (7-18)
[2024-03-20 16:39] LABS: CREATININE 0.4 mg/dL (0.55-1.3)
[2024-03-20 16:41] LABS: BILIRUBIN,TOTAL 0.2 mg/dL (0.2-1); TOT PROT 7.6 g/dl (6.4-8.2)
[2024-03-20] MEDS: SODIUM CHLORIDE 0.9% 500 ML INFUS.BAG IV ONE ×2 (16:44→17:30)
[2024-03-20 17:20] LABS: PH,URINE 7.5 (5.0-8.0); URINE APPEARANCE CLEAR; URINE BILIRUBIN NEGATIVE (NEGATIVE); URINE COLOR YELLOW; URINE GLUCOSE (UA) NEGATIVE (NEGATIVE); URINE KETONE NEGATIVE (NEGATIVE); URINE LEUK ESTERASE 2+ (NEGATIVE); URINE NITRITE NEGATIVE (NEGATIVE); URINE PROTEIN NEGATIVE (NEGATIVE); URINE UROBILINOGEN 0.2 mg/dL (0.2-1.0)
[2024-03-20 17:23] LABS: EPI CELLS 7.2 /uL (0-25.1); HYALINE CASTS 0.68 /uL (0-3.1); URINE BACTERIA 255.9 /uL (0-1359); URINE RBC 2.3 /uL (0-23.9); URINE WBC 18.5 /uL (0-25.8)
[2024-03-20] MEDS ORDERED: MIDODRINE HCL 5 MG TABLET ONE (17:32)
[2024-03-20] MEDS: VANCOMYCIN 1 GM PREMIX (F) 1 GM/200 ML BAG IVPB ONE (17:41)
[2024-03-20] MEDS: MIDODRINE HCL 2.5 MG TABLET PO ONE (17:44)
[2024-03-20] MEDS: VANCOMYCIN 1,000 MG in DEXTROSE 5%-WATER - 250 ML IVPB ONE ×2 (17:45→18:33)
[2024-03-20] MEDS ORDERED: NOREPINEPHRINE BITARTRATE 4 MG/4 ML ML IV ONE ×2 (18:44→19:29)
[2024-03-20] MEDS ORDERED: NOREPINEPHRINE BITARTRATE 16,000 MCG in SODIUM CHLORIDE 484 ML IV SCH (18:45)
[2024-03-20] MEDS: NOREPINEPHRINE BITARTRATE 4,000 MCG in DEXTROSE 5%-WATER - 496 ML IV SCH (19:43)
[2024-03-20] MEDS ORDERED: HYDROCORTISONE SOD SUCCINATE 100 MG/2 ML VIAL ONE (19:46)
[2024-03-20] MEDS: HYDROCORTISONE SOD SUCCINATE 100 MG/2 ML VIAL IVPUSH ONE (19:54)
[2024-03-21] MEDS: levETIRAcetam 500 MG/5 ML ORAL SOLUTION (UNIT-DOSE CUPS) PEG SCH ×2 (00:05→21:56)
[2024-03-21 00:19] LABS: EOS % 1.9 % (0-4.5); HEMATOCRIT 23.6 % (35.4-49); HEMOGLOBIN 7.8 GM/dL (11.7-16.9); LYMPH % 3.6 % (8-40); MCH 32.2 pg (25.7-33.7); MCHC 32.8 g/dl (32.0-35.9); MEAN CELL VOLUME 97.9 fl (80-96); MEAN PLT VOLUME 10.4 fl (7.5-11.1); MONO % 9.3 % (3.8-10.2); NEUT % 85.2 % (42.8-82.8); PLATELET COUNT 62 10^3/uL (134-434); RBC 2.41 M/mm3 (4.00-5.60); RDW 15.1 % (11.9-15.9); WHITE BLOOD COUNT 3.9 K/mm3 (4.0-10.0)
[2024-03-21 00:22] LABS: URINE APPEARANCE CLOUDY; URINE BILIRUBIN NEGATIVE (NEGATIVE); URINE COLOR YELLOW; URINE GLUCOSE (UA) NEGATIVE (NEGATIVE); URINE KETONE NEGATIVE (NEGATIVE); URINE LEUK ESTERASE 1+ (NEGATIVE); URINE NITRITE NEGATIVE (NEGATIVE); URINE PROTEIN NEGATIVE (NEGATIVE); URINE UROBILINOGEN 0.2 mg/dL (0.2-1.0)
[2024-03-21 00:24] LABS: ARTERIAL BLD GAS O2 SATURATION 97.8 % (95-98); ARTERIAL BLOOD GAS BASE EXCESS 4.2 mmol/L (-2-2); ARTERIAL BLOOD GAS PO2 108.5 mmHg (80-100); ARTERIAL BLOOD GAS pH 7.381 (7.350-7.450)
[2024-03-21 00:29] LABS: ALLENS TEST POSITIVE
[2024-03-21 00:31] LABS: CREATININE, URINE RANDOM < 13.0 mg/dL (30-150)
[2024-03-21 00:33] LABS: INR 0.96 (0.83-1.09)
[2024-03-21 00:35] LABS: CHLORIDE 106 mmol/L (98-107); SODIUM 141 mmol/L (136-145)
[2024-03-21 00:36] LABS: ACTIVATED PTT 47.8 SECONDS (25.2-36.5)
[2024-03-21 00:38] LABS: ALBUMIN 2.7 g/dl (3.4-5.0); BLOOD UREA NITROGEN 19.4 mg/dL (7-18); CALCIUM 8.3 mg/dL (8.5-10.1)
[2024-03-21 00:39] LABS: ANION GAP 1 mmol/L (4-13); CO2 33 mmol/L (21-32); GLUCOSE,RANDOM 82 mg/dL (74-106); MAGNESIUM 2.5 mg/dL (1.8-2.4)
[2024-03-21 00:41] LABS: CREATININE 0.5 mg/dL (0.55-1.3); SGOT/AST 91 U/L (15-37); SGPT/ALT 110 U/L (13-61)
[2024-03-21 00:43] LABS: ALK PHOS 304 U/L (45-117); AMYLASE 71 U/L (25-115); BILIRUBIN,TOTAL 0.4 mg/dL (0.2-1); TOT PROT 6.5 g/dl (6.4-8.2)
[2024-03-21] MEDS: ALBUTEROL SO4 2.5/IPRATROPIUM 0.5 INH SOL 3 ML VIAL.NEB. NEB SCH (00:43)
[2024-03-21 00:44] LABS: N-TERMINAL BNP 107.7 pg/ml (5-125)
[2024-03-21] MEDS: PIPERACILLIN/TAZOB 4.5 GM 4.5 GM/100 ML BAG IVPB SCH (01:27)
[2024-03-21] MEDS: HYDROCORTISONE SOD SUCCINATE 100 MG/2 ML VIAL IVPB SCH (01:27)
[2024-03-21 02:52] LABS: EPI CELLS 3.9 /uL (0-25.1); HYALINE CASTS 0.13 /uL (0-3.1); URINE BACTERIA 51.9 /uL (0-1359); URINE RBC 7.8 /uL (0-23.9); URINE WBC 17.1 /uL (0-25.8)
[2024-03-21] MEDS: NOREPINEPHRINE 0.9 % NACL 8 MG/250 ML BAG IVPB SCH (04:00)
[2024-03-21] MEDS: BACLOFEN 10 MG TABLET (FP) PEG SCH (06:14)
[2024-03-21] MEDS: VANCOMYCIN/WATER FOR INJ (PEG) 1,000 MG/200 ML BAG IVPB SCH (06:14)
[2024-03-21 07:01] LABS: ALLENS TEST POSITIVE; ARTERIAL BLD GAS O2 SATURATION 98.7 % (95-98); ARTERIAL BLOOD GAS BASE EXCESS 6.5 mmol/L (-2-2); ARTERIAL BLOOD GAS PO2 128.6 mmHg (80-100); ARTERIAL BLOOD GAS pH 7.447 (7.350-7.450)
[2024-03-21 07:16] LABS: HEMATOCRIT 24.3 % (35.4-49); MCH 32.6 pg (25.7-33.7); MCHC 33.1 g/dl (32.0-35.9); MEAN CELL VOLUME 98.4 fl (80-96); MEAN PLT VOLUME 11.9 fl (7.5-11.1); PLATELET COUNT 76 10^3/uL (134-434); RBC 2.47 M/mm3 (4.00-5.60); WHITE BLOOD COUNT 5.8 K/mm3 (4.0-10.0)
[2024-03-21 07:21] LABS: INR 0.96 (0.83-1.09)
[2024-03-21 07:24] LABS: ACTIVATED PTT 50.8 SECONDS (25.2-36.5)
[2024-03-21 07:36] LABS: MAGNESIUM 2.7 mg/dL (1.8-2.4)
[2024-03-21 07:40] LABS: PHOSPHOROUS 2.9 mg/dL (2.5-4.9)
[2024-03-21 07:44] LABS: N-TERMINAL BNP 398.2 pg/ml (5-125)
[2024-03-21] MEDS: MUPIROCIN 2% TOPICAL OINTMENT FOR DECOLONIZATION NS SCH (09:35)
[2024-03-21] MEDS ORDERED: HEPARIN NA (PORCINE) 5,000 UNITS/ML 1ML VIAL SQ SCH (10:00)
[2024-03-21] MEDS: MIDODRINE HCL 5 MG TABLET PO SCH (11:39)
[2024-03-21] MEDS: FAMOTIDINE 20 MG/2.5 ML ORAL LIQUID PEG SCH (11:39)
[2024-03-21 13:14] LABS: ALBUMIN 2.5 g/dl (3.4-5.0); BLOOD UREA NITROGEN 15.1 mg/dL (7-18); CALCIUM 8.2 mg/dL (8.5-10.1)
[2024-03-21 13:18] LABS: CREATININE 0.6 mg/dL (0.55-1.3)
[2024-03-21 13:19] LABS: TOT PROT 6.2 g/dl (6.4-8.2)
[2024-03-21 13:27] LABS: BILIRUBIN,TOTAL 0.4 mg/dL (0.2-1)
[2024-03-21] MEDS: LACTATED RINGERS SOLUTION 1,000 ML/1,000 ML INFUS.BAG IV SCH (16:55)
[2024-03-21] MEDS ORDERED: levETIRAcetam 250 MG TABLET PO SCH (21:00)
[2024-03-21] MEDS: CHLORHEXIDINE GLUCONATE 4% CLEANSER FOR DECOLONIZATION TP SCH (21:56)
[2024-03-21] MEDS: BISACODYL 10 MG SUPP.RECT PR PRN (21:56)
[2024-03-21] MEDS: SENNOSIDES 8.8 MG/5 ML SYRUP PEG SCH (21:56)
[2024-03-21] MEDS: MIDODRINE HCL 5 MG TABLET PEG SCH (21:56)
[2024-03-21] MEDS: POLYETHYLENE GLYCOL (HEALTHYLAX) 3350 17 GM PACKET PEG SCH (21:56)
[2024-03-21] MEDS ORDERED: levETIRAcetam 500 MG/5 ML ORAL SOLUTION (UNIT-DOSE CUPS) PEG SCH (22:00)
[2024-03-22] MEDS: PIPERACILLIN/TAZOB 4.5 GM 4.5 GM/100 ML BAG IVPB SCH (02:00)
[2024-03-22] MEDS: VANCOMYCIN/WATER FOR INJ (PEG) 1,000 MG/200 ML BAG IVPB SCH (04:15)
[2024-03-22 06:34] LABS: BASO % 0.3 % (0-2.0); EOS % 0.1 % (0-4.5); HEMATOCRIT 22.6 % (35.4-49); HEMOGLOBIN 7.4 GM/dL (11.7-16.9); LYMPH % 12.3 % (8-40); MCH 32.5 pg (25.7-33.7); MCHC 32.9 g/dl (32.0-35.9); MEAN CELL VOLUME 98.8 fl (80-96); MEAN PLT VOLUME 11.5 fl (7.5-11.1); MONO % 5.5 % (3.8-10.2); NEUT % 81.8 % (42.8-82.8); PLATELET COUNT 70 10^3/uL (134-434); RBC 2.29 M/mm3 (4.00-5.60); RDW 15.1 % (11.9-15.9)
[2024-03-22 07:04] LABS: POTASSIUM 3.1 mmol/L (3.5-5.1)
[2024-03-22 07:10] LABS: ALBUMIN 2.4 g/dl (3.4-5.0); CALCIUM 8.3 mg/dL (8.5-10.1)
[2024-03-22 07:11] LABS: BLOOD UREA NITROGEN 12.5 mg/dL (7-18); MAGNESIUM 2.3 mg/dL (1.8-2.4)
[2024-03-22 07:14] LABS: CREATININE 0.6 mg/dL (0.55-1.3); PHOSPHOROUS 2.2 mg/dL (2.5-4.9)
[2024-03-22 07:15] LABS: BILIRUBIN,TOTAL 0.5 mg/dL (0.2-1); TOT PROT 6.1 g/dl (6.4-8.2)
[2024-03-22] MEDS: NAPH,MB-DB/K PH,MBDB POWDER PACKET PO SCH (09:32)
[2024-03-22] MEDS ORDERED: HYDROCORTISONE SOD SUCCINATE 100 MG/2 ML VIAL IVPB SCH (10:34)
[2024-03-22] MEDS: ALBUTEROL SO4 2.5/IPRATROPIUM 0.5 INH SOL 3 ML VIAL.NEB. NEB ONE (11:45)
[2024-03-22] MEDS: SCOPOLAMINE HYDROBROMIDE 1 PATCH PATCH.TD72 TP SCH (12:54)
[2024-03-22] MEDS ORDERED: DEXTROSE 50%-WATER 25 GM/50 ML DISP.SYRIN ONE (12:59)
[2024-03-22] MEDS: DOXAZOSIN MESYLATE 4 MG TABLET GT SCH (13:10)
[2024-03-22] MEDS: DEXTROSE 50%-WATER - 25 GM/50 ML VIAL IVPUSH ONE (13:15)
[2024-03-22] MEDS ORDERED: DEXTROSE 50%-WATER - 25 GM/50 ML VIAL IVPUSH PRN (13:24)
[2024-03-22] MEDS: PIPERACILLIN/TAZOB 3.375 GM 3.375 GM in DEXTROSE 5%-WATER - 50 ML IVPB SCH (17:27)
[2024-03-22] MEDS: LACTATED RINGERS SOLUTION 1,000 ML/1,000 ML INFUS.BAG IV SCH (17:52)
[2024-03-22] MEDS ORDERED: ALBUTEROL SO4 2.5/IPRATROPIUM 0.5 INH SOL 3 ML VIAL.NEB. NEB PRN (19:00)
[2024-03-22] MEDS: HYDROCORTISONE SOD SUCCINATE 100 MG/2 ML VIAL IVPB SCH (21:25)
[2024-03-22] MEDS: ALBUTEROL SO4 2.5/IPRATROPIUM 0.5 INH SOL 3 ML VIAL.NEB. NEB SCH (22:54)
[2024-03-23 07:06] LABS: BASO % 0.4 % (0-2.0); EOS % 0.3 % (0-4.5); HEMATOCRIT 22.2 % (35.4-49); HEMOGLOBIN 7.2 GM/dL (11.7-16.9); LYMPH % 20.7 % (8-40); MCHC 32.4 g/dl (32.0-35.9); MEAN CELL VOLUME 98.9 fl (80-96); MEAN PLT VOLUME 11.2 fl (7.5-11.1); MONO % 3.3 % (3.8-10.2); NEUT % 75.3 % (42.8-82.8); PLATELET COUNT 84 10^3/uL (134-434); RBC 2.25 M/mm3 (4.00-5.60); RDW 15.3 % (11.9-15.9); WHITE BLOOD COUNT 4.2 K/mm3 (4.0-10.0)
[2024-03-23 07:23] LABS: POTASSIUM 3.1 mmol/L (3.5-5.1)
[2024-03-23 07:32] LABS: BLOOD UREA NITROGEN 9.6 mg/dL (7-18)
[2024-03-23 07:33] LABS: ALBUMIN 2.3 g/dl (3.4-5.0); CALCIUM 8.7 mg/dL (8.5-10.1)
[2024-03-23 07:36] LABS: CREATININE 0.6 mg/dL (0.55-1.3)
[2024-03-23 07:37] LABS: PHOSPHOROUS 2.8 mg/dL (2.5-4.9)
[2024-03-23 07:38] LABS: BILIRUBIN,TOTAL 0.3 mg/dL (0.2-1); TOT PROT 5.9 g/dl (6.4-8.2)
[2024-03-23] MEDS: KCL 20 MEQ PREMIX BAG 20 MEQ/100 ML INFUS.BAG IVPB SCH ×2 (09:36→13:20)
[2024-03-23] MEDS: PIPERACILLIN/TAZOB 4.5 GM 4.5 GM/100 ML BAG IVPB SCH (09:53)
[2024-03-23] MEDS: BACITRACIN ZINC 15 GM TUBE TOPICAL OINTMENT TP SCH (13:00)
[2024-03-23] MEDS: VANCOMYCIN 1,000 MG in DEXTROSE 5%-WATER - 250 ML IVPB SCH (13:20)
[2024-03-23] MEDS: QUEtiapine FUMARATE 25 MG TABLET GT SCH (13:20)
[2024-03-23] MEDS: ALBUTEROL SO4 0.083% IH SOL 2.5 MG/3 ML VIAL.NEB. NEB SCH (16:00)
[2024-03-23] MEDS: ACETYLCYSTEINE 20% 200MG/ML 4 ML VIAL *FOR ORAL / INH USE ONLY NEB SCH (16:00)
[2024-03-23] MEDS: PANTOPRAZOLE SODIUM 40 MG VIAL IVPUSH SCH (17:17)
[2024-03-23] MEDS: HYDROCORTISONE SOD SUCCINATE 100 MG/2 ML VIAL IVPB SCH (21:09)
[2024-03-24] MEDS ORDERED: DEXTROSE 50%-WATER - 25 GM/50 ML VIAL IVPUSH PRN (00:09)
[2024-03-24] MEDS ORDERED: BISACODYL 10 MG SUPP.RECT PR PRN (00:09)
[2024-03-24] MEDS: PIPERACILLIN/TAZOB 3.375 GM 3.375 GM/50 ML BAG IVPB SCH (02:02)
[2024-03-24] MEDS: MIDODRINE HCL 5 MG TABLET PEG SCH ×2 (05:58→13:58)
[2024-03-24] MEDS: BACLOFEN 10 MG TABLET (FP) PEG SCH (05:58)
[2024-03-24 06:56] LABS: HEMATOCRIT 21.6 % (35.4-49); HEMOGLOBIN 7.1 GM/dL (11.7-16.9); MCH 32.4 pg (25.7-33.7); MCHC 32.7 g/dl (32.0-35.9); MEAN CELL VOLUME 98.9 fl (80-96); MEAN PLT VOLUME 10.6 fl (7.5-11.1); PLATELET COUNT 107 10^3/uL (134-434); RBC 2.19 M/mm3 (4.00-5.60); RDW 15.2 % (11.9-15.9)
[2024-03-24 09:59] LABS: POTASSIUM 3.3 mmol/L (3.5-5.1)
[2024-03-24 10:00] LABS: CALCIUM 8.6 mg/dL (8.5-10.1)
[2024-03-24 10:01] LABS: ALBUMIN 2.3 g/dl (3.4-5.0); BLOOD UREA NITROGEN 8.4 mg/dL (7-18); MAGNESIUM 1.8 mg/dL (1.8-2.4)
[2024-03-24 10:03] LABS: PHOSPHOROUS 2.2 mg/dL (2.5-4.9)
[2024-03-24 10:04] LABS: CREATININE 0.7 mg/dL (0.55-1.3)
[2024-03-24 10:06] LABS: BILIRUBIN,TOTAL 0.3 mg/dL (0.2-1); TOT PROT 5.9 g/dl (6.4-8.2)
[2024-03-24] MEDS: POLYETHYLENE GLYCOL (HEALTHYLAX) 3350 17 GM PACKET PEG SCH (10:41)
[2024-03-24] MEDS: DOXAZOSIN MESYLATE 4 MG TABLET GT SCH (10:41)
[2024-03-24] MEDS: FAMOTIDINE 20 MG/2.5 ML ORAL LIQUID PEG SCH (10:41)
[2024-03-24] MEDS: POTASSIUM CHLORIDE ORAL LIQUID 20 MEQ/15 ML PO ONE (13:58)
[2024-03-24 15:58] VITALS: BMI 27.0
[2024-03-24] MEDS: PIPERACILLIN/TAZOB 3.375 GM 50 ML IVPB SCH (18:13)
[2024-03-24] MEDS: levETIRAcetam 500 MG/5 ML ORAL SOLUTION (UNIT-DOSE CUPS) PEG SCH (21:06)
[2024-03-24] MEDS: SENNOSIDES 8.8 MG/5 ML SYRUP PEG SCH (21:06)
[2024-03-25 07:14] LABS: BASO % 0.2 % (0-2.0); HEMATOCRIT 22.7 % (35.4-49); HEMOGLOBIN 7.4 GM/dL (11.7-16.9); LYMPH % 26.3 % (8-40); MCH 32.3 pg (25.7-33.7); MCHC 32.7 g/dl (32.0-35.9); MEAN CELL VOLUME 98.8 fl (80-96); MEAN PLT VOLUME 10.1 fl (7.5-11.1); NEUT % 64.5 % (42.8-82.8); PLATELET COUNT 134 10^3/uL (134-434); RDW 15.2 % (11.9-15.9); WHITE BLOOD COUNT 4.1 K/mm3 (4.0-10.0)
[2024-03-25 07:22] LABS: POTASSIUM 3.4 mmol/L (3.5-5.1)
[2024-03-25 07:25] LABS: CALCIUM 8.7 mg/dL (8.5-10.1)
[2024-03-25 07:26] LABS: ALBUMIN 2.4 g/dl (3.4-5.0); BLOOD UREA NITROGEN 10.5 mg/dL (7-18); MAGNESIUM 1.8 mg/dL (1.8-2.4)
[2024-03-25 07:29] LABS: CREATININE 0.6 mg/dL (0.55-1.3); PHOSPHOROUS 2.8 mg/dL (2.5-4.9)
[2024-03-25 07:31] LABS: BILIRUBIN,TOTAL 0.3 mg/dL (0.2-1); TOT PROT 6.1 g/dl (6.4-8.2)
[2024-03-25] MEDS: POTASSIUM CHLORIDE ORAL LIQUID 20 MEQ/15 ML GT ONE (09:12)
[2024-03-25] MEDS: SCOPOLAMINE HYDROBROMIDE 1 PATCH PATCH.TD72 TP SCH (13:39)
[2024-03-26 06:36] LABS: BASO % 0.2 % (0-2.0); EOS % 3.5 % (0-4.5); HEMATOCRIT 23.2 % (35.4-49); HEMOGLOBIN 7.7 GM/dL (11.7-16.9); LYMPH % 18.7 % (8-40); MCH 32.7 pg (25.7-33.7); MCHC 33.2 g/dl (32.0-35.9); MEAN CELL VOLUME 98.7 fl (80-96); MEAN PLT VOLUME 9.4 fl (7.5-11.1); MONO % 7.7 % (3.8-10.2); NEUT % 69.9 % (42.8-82.8); PLATELET COUNT 177 10^3/uL (134-434); RBC 2.35 M/mm3 (4.00-5.60); RDW 15.1 % (11.9-15.9); WHITE BLOOD COUNT 8.2 K/mm3 (4.0-10.0)
[2024-03-26 06:49] LABS: POTASSIUM 3.2 mmol/L (3.5-5.1)
[2024-03-26 06:51] LABS: CALCIUM 8.5 mg/dL (8.5-10.1)
[2024-03-26 06:52] LABS: ALBUMIN 2.4 g/dl (3.4-5.0); BLOOD UREA NITROGEN 10.7 mg/dL (7-18); MAGNESIUM 1.7 mg/dL (1.8-2.4)
[2024-03-26 06:55] LABS: CREATININE 0.6 mg/dL (0.55-1.3); PHOSPHOROUS 3.1 mg/dL (2.5-4.9)
[2024-03-26 06:56] LABS: BILIRUBIN,TOTAL 0.2 mg/dL (0.2-1); TOT PROT 6.2 g/dl (6.4-8.2)
[2024-03-26] MEDS: MAGNESIUM 1GM/D5W - 1 GM/100 ML IVPB IVPB ONE (11:33)
[2024-03-26] MEDS: KCL 10 MEQ IVPB 10 MEQ/100 ML INFUS.BAG IVPB SCH (11:52)
[2024-03-27 07:48] LABS: HEMATOCRIT 21.9 % (35.4-49); HEMOGLOBIN 7.3 GM/dL (11.7-16.9); MCHC 33.4 g/dl (32.0-35.9); MEAN CELL VOLUME 98.7 fl (80-96); MEAN PLT VOLUME 9.3 fl (7.5-11.1); PLATELET COUNT 205 10^3/uL (134-434); RBC 2.22 M/mm3 (4.00-5.60); RDW 15.4 % (11.9-15.9); WHITE BLOOD COUNT 4.1 K/mm3 (4.0-10.0)
[2024-03-27 08:04] LABS: POTASSIUM 3.9 mmol/L (3.5-5.1)
[2024-03-27 08:07] LABS: CALCIUM 8.6 mg/dL (8.5-10.1); MAGNESIUM 2.2 mg/dL (1.8-2.4)
[2024-03-27 08:09] LABS: BLOOD UREA NITROGEN 9.9 mg/dL (7-18)
[2024-03-27 08:11] LABS: CREATININE 0.5 mg/dL (0.55-1.3)
[2024-03-27 08:13] LABS: PHOSPHOROUS 3.9 mg/dL (2.5-4.9)
[2024-03-28 07:28] LABS: BASO % 0.3 % (0-2.0); EOS % 5.5 % (0-4.5); HEMATOCRIT 25.2 % (35.4-49); HEMOGLOBIN 8.4 GM/dL (11.7-16.9); LYMPH % 39.4 % (8-40); MCH 32.9 pg (25.7-33.7); MCHC 33.2 g/dl (32.0-35.9); MEAN CELL VOLUME 99.1 fl (80-96); MEAN PLT VOLUME 8.9 fl (7.5-11.1); MONO % 9.3 % (3.8-10.2); NEUT % 45.5 % (42.8-82.8); PLATELET COUNT 294 10^3/uL (134-434); RBC 2.54 M/mm3 (4.00-5.60); RDW 15.7 % (11.9-15.9)
[2024-03-28 07:39] LABS: POTASSIUM 4.1 mmol/L (3.5-5.1)
[2024-03-28 07:43] LABS: ALBUMIN 2.8 g/dl (3.4-5.0); CALCIUM 9.2 mg/dL (8.5-10.1); MAGNESIUM 2.2 mg/dL (1.8-2.4)
[2024-03-28 07:47] LABS: CREATININE 0.6 mg/dL (0.55-1.3); PHOSPHOROUS 4.1 mg/dL (2.5-4.9)
[2024-03-28 07:48] LABS: BILIRUBIN,TOTAL 0.3 mg/dL (0.2-1); TOT PROT 7.1 g/dl (6.4-8.2)
[2024-03-28] MEDS: ENOXAPARIN NA (PORCINE) 40 MG/0.4 ML DISP.SYRIN SQ SCH (09:22)
[2024-03-29 07:34] LABS: POTASSIUM 4.2 mmol/L (3.5-5.1)
[2024-03-29 07:43] LABS: ALBUMIN 2.9 g/dl (3.4-5.0); BLOOD UREA NITROGEN 16.4 mg/dL (7-18); MAGNESIUM 2.2 mg/dL (1.8-2.4)
[2024-03-29 07:45] LABS: CREATININE 0.6 mg/dL (0.55-1.3); PHOSPHOROUS 4.2 mg/dL (2.5-4.9)
[2024-03-29 07:47] LABS: BILIRUBIN,TOTAL 0.3 mg/dL (0.2-1)
[2024-03-29 08:03] LABS: BASO % 0.5 % (0-2.0); EOS % 5.3 % (0-4.5); HEMOGLOBIN 8.3 GM/dL (11.7-16.9); LYMPH % 29.6 % (8-40); MCH 33.2 pg (25.7-33.7); MCHC 33.3 g/dl (32.0-35.9); MEAN CELL VOLUME 99.5 fl (80-96); MEAN PLT VOLUME 9.1 fl (7.5-11.1); NEUT % 55.6 % (42.8-82.8); PLATELET COUNT 331 10^3/uL (134-434); RBC 2.51 M/mm3 (4.00-5.60); RDW 15.5 % (11.9-15.9); WHITE BLOOD COUNT 5.1 K/mm3 (4.0-10.0)
[2024-03-30 06:42] LABS: BASO % 0.8 % (0-2.0); HEMATOCRIT 24.7 % (35.4-49); HEMOGLOBIN 8.5 GM/dL (11.7-16.9); LYMPH % 29.3 % (8-40); MCH 33.5 pg (25.7-33.7); MCHC 34.2 g/dl (32.0-35.9); MEAN CELL VOLUME 97.8 fl (80-96); MEAN PLT VOLUME 8.5 fl (7.5-11.1); MONO % 10.2 % (3.8-10.2); NEUT % 53.7 % (42.8-82.8); PLATELET COUNT 330 10^3/uL (134-434); RBC 2.53 M/mm3 (4.00-5.60); WHITE BLOOD COUNT 4.8 K/mm3 (4.0-10.0)
[2024-03-30 06:44] LABS: ALBUMIN 2.9 g/dl (3.4-5.0)
[2024-03-30 06:45] LABS: CALCIUM 9.1 mg/dL (8.5-10.1)
[2024-03-30 06:46] LABS: CREATININE 0.6 mg/dL (0.55-1.3)
[2024-03-30 06:47] LABS: PHOSPHOROUS 3.6 mg/dL (2.5-4.9)
[2024-03-30 06:48] LABS: BILIRUBIN,TOTAL 0.2 mg/dL (0.2-1); TOT PROT 7.2 g/dl (6.4-8.2)
[2024-03-31 07:57] LABS: BASO % 0.8 % (0-2.0); EOS % 5.2 % (0-4.5); HEMATOCRIT 25.9 % (35.4-49); HEMOGLOBIN 8.7 GM/dL (11.7-16.9); LYMPH % 29.4 % (8-40); MCH 33.3 pg (25.7-33.7); MCHC 33.4 g/dl (32.0-35.9); MEAN CELL VOLUME 99.8 fl (80-96); MEAN PLT VOLUME 8.4 fl (7.5-11.1); MONO % 12.5 % (3.8-10.2); NEUT % 52.1 % (42.8-82.8); PLATELET COUNT 359 10^3/uL (134-434); RDW 15.4 % (11.9-15.9); WHITE BLOOD COUNT 5.2 K/mm3 (4.0-10.0)
[2024-03-31 08:24] LABS: POTASSIUM 4.1 mmol/L (3.5-5.1)
[2024-03-31 08:26] LABS: CALCIUM 9.3 mg/dL (8.5-10.1)
[2024-03-31 08:27] LABS: BLOOD UREA NITROGEN 17.7 mg/dL (7-18); MAGNESIUM 2.1 mg/dL (1.8-2.4)
[2024-03-31 08:30] LABS: CREATININE 0.6 mg/dL (0.55-1.3)
[2024-03-31 08:31] LABS: BILIRUBIN,TOTAL 0.3 mg/dL (0.2-1); TOT PROT 7.7 g/dl (6.4-8.2)
[2024-04-01 06:51] LABS: BASO % 0.6 % (0-2.0); EOS % 3.4 % (0-4.5); HEMATOCRIT 27.1 % (35.4-49); LYMPH % 33.1 % (8-40); MCH 32.9 pg (25.7-33.7); MCHC 33.1 g/dl (32.0-35.9); MEAN CELL VOLUME 99.5 fl (80-96); MEAN PLT VOLUME 8.4 fl (7.5-11.1); MONO % 14.2 % (3.8-10.2); NEUT % 48.7 % (42.8-82.8); PLATELET COUNT 371 10^3/uL (134-434); RBC 2.72 M/mm3 (4.00-5.60); RDW 15.5 % (11.9-15.9); WHITE BLOOD COUNT 5.3 K/mm3 (4.0-10.0)
[2024-04-01 07:12] LABS: POTASSIUM 4.1 mmol/L (3.5-5.1)
[2024-04-01 07:17] LABS: CALCIUM 9.2 mg/dL (8.5-10.1)
[2024-04-01 07:18] LABS: ALBUMIN 3.1 g/dl (3.4-5.0); BLOOD UREA NITROGEN 16.8 mg/dL (7-18)
[2024-04-01 07:21] LABS: CREATININE 0.6 mg/dL (0.55-1.3); PHOSPHOROUS 3.5 mg/dL (2.5-4.9)
[2024-04-01 07:23] LABS: BILIRUBIN,TOTAL 0.3 mg/dL (0.2-1); TOT PROT 7.6 g/dl (6.4-8.2)
[2024-04-02 07:15] LABS: BASO % 0.6 % (0-2.0); EOS % 3.2 % (0-4.5); HEMOGLOBIN 8.6 GM/dL (11.7-16.9); LYMPH % 22.5 % (8-40); MCH 32.5 pg (25.7-33.7); MEAN CELL VOLUME 98.5 fl (80-96); MEAN PLT VOLUME 8.2 fl (7.5-11.1); MONO % 13.3 % (3.8-10.2); NEUT % 60.4 % (42.8-82.8); PLATELET COUNT 366 10^3/uL (134-434); RBC 2.64 M/mm3 (4.00-5.60); RDW 15.5 % (11.9-15.9); WHITE BLOOD COUNT 6.7 K/mm3 (4.0-10.0)
[2024-04-02 07:32] LABS: POTASSIUM 4.1 mmol/L (3.5-5.1)
[2024-04-02 07:41] LABS: CALCIUM 8.8 mg/dL (8.5-10.1)
[2024-04-02 07:42] LABS: BLOOD UREA NITROGEN 15.3 mg/dL (7-18)
[2024-04-02 07:45] LABS: CREATININE 0.5 mg/dL (0.55-1.3)
[2024-04-02 07:47] LABS: BILIRUBIN,TOTAL 0.3 mg/dL (0.2-1); TOT PROT 7.4 g/dl (6.4-8.2)
[2024-04-02] MEDS ORDERED: INSULIN REGULAR HUMAN 100 UNITS/ML *VIAL ONE (09:04)
[2024-04-02] MEDS: levETIRAcetam 500 MG/5 ML ORAL SOLUTION (UNIT-DOSE CUPS) PEG SCH (21:26)
[2024-04-02] MEDS ORDERED: levETIRAcetam 250 MG TABLET PO SCH (22:00)
[2024-04-03 06:57] LABS: HEMATOCRIT 26.7 % (35.4-49); HEMOGLOBIN 8.8 GM/dL (11.7-16.9); MCH 32.3 pg (25.7-33.7); MCHC 32.9 g/dl (32.0-35.9); MEAN CELL VOLUME 98.1 fl (80-96); MEAN PLT VOLUME 8.2 fl (7.5-11.1); PLATELET COUNT 338 10^3/uL (134-434); RBC 2.72 M/mm3 (4.00-5.60); RDW 15.6 % (11.9-15.9); WHITE BLOOD COUNT 7.1 K/mm3 (4.0-10.0)
[2024-04-03 07:07] LABS: POTASSIUM 3.6 mmol/L (3.5-5.1)
[2024-04-03 07:12] LABS: ALBUMIN 3.1 g/dl (3.4-5.0); BLOOD UREA NITROGEN 15.9 mg/dL (7-18); CALCIUM 9.6 mg/dL (8.5-10.1)
[2024-04-03 07:15] LABS: CREATININE 0.5 mg/dL (0.55-1.3)
[2024-04-03 07:17] LABS: BILIRUBIN,TOTAL 0.5 mg/dL (0.2-1); TOT PROT 7.5 g/dl (6.4-8.2)
[2024-04-03] MEDS: MAGNESIUM HYDROX 2400MG/30ML ORAL SUSPENSION 30 ML CUP GT ONE (18:21)
[2024-04-03] MEDS ORDERED: ACETAMINOPHEN 1000 MG/100 ML BAG IVPB PRN ×2 (22:05→22:22)
[2024-04-04 07:35] LABS: BASO % 0.6 % (0-2.0); EOS % 3.8 % (0-4.5); HEMATOCRIT 26.3 % (35.4-49); HEMOGLOBIN 8.9 GM/dL (11.7-16.9); LYMPH % 28.3 % (8-40); MCH 32.9 pg (25.7-33.7); MCHC 33.8 g/dl (32.0-35.9); MEAN CELL VOLUME 97.4 fl (80-96); MEAN PLT VOLUME 8.6 fl (7.5-11.1); MONO % 15.5 % (3.8-10.2); NEUT % 51.8 % (42.8-82.8); PLATELET COUNT 322 10^3/uL (134-434); RBC 2.71 M/mm3 (4.00-5.60); RDW 15.5 % (11.9-15.9); WHITE BLOOD COUNT 4.8 K/mm3 (4.0-10.0)
[2024-04-04 07:50] LABS: POTASSIUM 4.2 mmol/L (3.5-5.1)
[2024-04-04 07:52] LABS: CALCIUM 8.9 mg/dL (8.5-10.1)
[2024-04-04 07:53] LABS: ALBUMIN 3.1 g/dl (3.4-5.0); BLOOD UREA NITROGEN 15.1 mg/dL (7-18); MAGNESIUM 2.1 mg/dL (1.8-2.4)
[2024-04-04 07:56] LABS: CREATININE 0.6 mg/dL (0.55-1.3); PHOSPHOROUS 4.4 mg/dL (2.5-4.9)
[2024-04-04 07:57] LABS: BILIRUBIN,TOTAL 0.4 mg/dL (0.2-1); TOT PROT 7.4 g/dl (6.4-8.2)
[2024-04-04] MEDS: MIDODRINE HCL 2.5 MG TABLET PEG SCH (15:43)
[2024-04-05 07:16] LABS: BASO % 0.9 % (0-2.0); EOS % 5.4 % (0-4.5); HEMATOCRIT 26.1 % (35.4-49); HEMOGLOBIN 8.7 GM/dL (11.7-16.9); LYMPH % 27.9 % (8-40); MCH 32.6 pg (25.7-33.7); MCHC 33.4 g/dl (32.0-35.9); MEAN CELL VOLUME 97.7 fl (80-96); MEAN PLT VOLUME 8.2 fl (7.5-11.1); MONO % 13.5 % (3.8-10.2); NEUT % 52.3 % (42.8-82.8); PLATELET COUNT 289 10^3/uL (134-434); RBC 2.67 M/mm3 (4.00-5.60); RDW 15.2 % (11.9-15.9)
[2024-04-05 07:18] LABS: POTASSIUM 3.8 mmol/L (3.5-5.1)
[2024-04-05 07:25] LABS: ALBUMIN 3.2 g/dl (3.4-5.0); BLOOD UREA NITROGEN 12.8 mg/dL (7-18); CALCIUM 9.1 mg/dL (8.5-10.1); MAGNESIUM 2.2 mg/dL (1.8-2.4)
[2024-04-05 07:28] LABS: CREATININE 0.5 mg/dL (0.55-1.3); PHOSPHOROUS 3.5 mg/dL (2.5-4.9)
[2024-04-05 07:31] LABS: BILIRUBIN,TOTAL 0.3 mg/dL (0.2-1); TOT PROT 7.5 g/dl (6.4-8.2)
[2024-04-05] MEDS: AMINO ACIDS/PROTEIN HYDROLYS 30 ML LIQUID.PKT PO SCH (09:46)
[2024-04-05] MEDS: MIDODRINE HCL 2.5 MG TABLET PEG SCH (09:46)
[2024-04-06 09:58] LABS: BASO % 1.3 % (0-2.0); EOS % 7.9 % (0-4.5); HEMATOCRIT 26.6 % (35.4-49); HEMOGLOBIN 8.7 GM/dL (11.7-16.9); LYMPH % 42.3 % (8-40); MCH 32.5 pg (25.7-33.7); MCHC 32.9 g/dl (32.0-35.9); MEAN CELL VOLUME 98.9 fl (80-96); MEAN PLT VOLUME 8.5 fl (7.5-11.1); MONO % 13.9 % (3.8-10.2); NEUT % 34.6 % (42.8-82.8); PLATELET COUNT 279 10^3/uL (134-434); RBC 2.69 M/mm3 (4.00-5.60); WHITE BLOOD COUNT 3.6 K/mm3 (4.0-10.0)
[2024-04-06 11:11] LABS: POTASSIUM 3.8 mmol/L (3.5-5.1)
[2024-04-06 11:14] LABS: CALCIUM 9.4 mg/dL (8.5-10.1)
[2024-04-06 11:15] LABS: BLOOD UREA NITROGEN 12.9 mg/dL (7-18)
[2024-04-06 11:18] LABS: CREATININE 0.4 mg/dL (0.55-1.3)
[2024-04-06] MEDS: levETIRAcetam 500 MG/5 ML INJECTION VIAL IVPB SCH (23:14)
[2024-04-07 07:41] LABS: BASO % 0.7 % (0-2.0); EOS % 6.5 % (0-4.5); HEMATOCRIT 27.3 % (35.4-49); HEMOGLOBIN 9.2 GM/dL (11.7-16.9); LYMPH % 38.2 % (8-40); MCHC 33.8 g/dl (32.0-35.9); MEAN CELL VOLUME 97.4 fl (80-96); MEAN PLT VOLUME 8.5 fl (7.5-11.1); MONO % 11.8 % (3.8-10.2); NEUT % 42.8 % (42.8-82.8); PLATELET COUNT 249 10^3/uL (134-434); RDW 15.3 % (11.9-15.9); WHITE BLOOD COUNT 3.5 K/mm3 (4.0-10.0)
[2024-04-07 08:03] LABS: POTASSIUM 3.7 mmol/L (3.5-5.1)
[2024-04-07 08:08] LABS: CALCIUM 9.2 mg/dL (8.5-10.1)
[2024-04-07 08:09] LABS: ALBUMIN 3.1 g/dl (3.4-5.0); BLOOD UREA NITROGEN 17.1 mg/dL (7-18); MAGNESIUM 1.9 mg/dL (1.8-2.4)
[2024-04-07 08:10] LABS: CREATININE 0.5 mg/dL (0.55-1.3)
[2024-04-07 08:11] LABS: PHOSPHOROUS 3.6 mg/dL (2.5-4.9)
[2024-04-07 08:12] LABS: BILIRUBIN,TOTAL 0.3 mg/dL (0.2-1); TOT PROT 7.5 g/dl (6.4-8.2)
[2024-04-08] MEDS ORDERED: BISACODYL 10 MG SUPP.RECT PR PRN (10:26)
[2024-04-08] MEDS ORDERED: DEXTROSE 50%-WATER - 25 GM/50 ML VIAL IVPUSH PRN (10:26)
[2024-04-08 10:35] LABS: POTASSIUM 3.9 mmol/L (3.5-5.1)
[2024-04-08 10:39] LABS: BLOOD UREA NITROGEN 19.2 mg/dL (7-18); CALCIUM 9.8 mg/dL (8.5-10.1); MAGNESIUM 2.2 mg/dL (1.8-2.4)
[2024-04-08 10:40] LABS: ALBUMIN 3.5 g/dl (3.4-5.0)
[2024-04-08 10:41] LABS: CREATININE 0.7 mg/dL (0.55-1.3)
[2024-04-08 10:43] LABS: PHOSPHOROUS 2.9 mg/dL (2.5-4.9)
[2024-04-08 10:44] LABS: TOT PROT 8.3 g/dl (6.4-8.2)
[2024-04-08 10:46] LABS: BILIRUBIN,TOTAL 0.4 mg/dL (0.2-1)
[2024-04-08 11:32] LABS: BASO % 0.5 % (0-2.0); EOS % 2.7 % (0-4.5); HEMATOCRIT 28.8 % (35.4-49); HEMOGLOBIN 9.6 GM/dL (11.7-16.9); LYMPH % 37.5 % (8-40); MCH 32.8 pg (25.7-33.7); MCHC 33.4 g/dl (32.0-35.9); MEAN CELL VOLUME 98.4 fl (80-96); MEAN PLT VOLUME 9.8 fl (7.5-11.1); MONO % 13.4 % (3.8-10.2); NEUT % 45.9 % (42.8-82.8); PLATELET COUNT 204 10^3/uL (134-434); RBC 2.93 M/mm3 (4.00-5.60); RDW 14.6 % (11.9-15.9); WHITE BLOOD COUNT 5.5 K/mm3 (4.0-10.0)
[2024-04-08] MEDS: BACLOFEN 10 MG TABLET (FP) PEG SCH (14:01)
[2024-04-08] MEDS: BACITRACIN ZINC 15 GM TUBE TOPICAL OINTMENT TP SCH (21:32)
[2024-04-08] MEDS: POLYETHYLENE GLYCOL (HEALTHYLAX) 3350 17 GM PACKET PEG SCH (21:32)
[2024-04-08] MEDS: SENNOSIDES 8.8 MG/5 ML SYRUP PEG SCH (21:33)
[2024-04-08] MEDS: MIDODRINE HCL 2.5 MG TABLET PEG SCH (23:38)
[2024-04-09 08:56] LABS: BASO % 0.9 % (0-2.0); EOS % 3.8 % (0-4.5); HEMATOCRIT 28.4 % (35.4-49); HEMOGLOBIN 10.1 GM/dL (11.7-16.9); LYMPH % 36.3 % (8-40); MCH 34.4 pg (25.7-33.7); MCHC 35.5 g/dl (32.0-35.9); MEAN PLT VOLUME 8.5 fl (7.5-11.1); MONO % 13.4 % (3.8-10.2); NEUT % 45.6 % (42.8-82.8); PLATELET COUNT 260 10^3/uL (134-434); RBC 2.93 M/mm3 (4.00-5.60); RDW 15.1 % (11.9-15.9); WHITE BLOOD COUNT 5.2 K/mm3 (4.0-10.0)
[2024-04-09 09:09] LABS: POTASSIUM 3.6 mmol/L (3.5-5.1)
[2024-04-09 09:27] LABS: CALCIUM 9.5 mg/dL (8.5-10.1)
[2024-04-09 09:31] LABS: ALBUMIN 3.5 g/dl (3.4-5.0)
[2024-04-09 09:33] LABS: BLOOD UREA NITROGEN 19.6 mg/dL (7-18)
[2024-04-09 09:34] LABS: CREATININE 0.6 mg/dL (0.55-1.3)
[2024-04-09 09:36] LABS: BILIRUBIN,TOTAL 0.4 mg/dL (0.2-1); TOT PROT 8.2 g/dl (6.4-8.2)
[2024-04-09] MEDS: AMINO ACIDS/PROTEIN HYDROLYS 30 ML LIQUID.PKT PO SCH (10:51)
[2024-04-09] MEDS: DOXAZOSIN MESYLATE 4 MG TABLET GT SCH (10:53)
[2024-04-09] MEDS: PANTOPRAZOLE SODIUM 40 MG VIAL IVPUSH SCH (10:53)
[2024-04-09] MEDS: ENOXAPARIN NA (PORCINE) 40 MG/0.4 ML DISP.SYRIN SQ SCH (10:54)
[2024-04-09] MEDS: SCOPOLAMINE HYDROBROMIDE 1 PATCH PATCH.TD72 TP SCH (11:10)
[2024-04-09] MEDS: MULTIVITAMINS (DAILY MVI) TABLET (FP) PO SCH (12:46)
[2024-04-09] MEDS: ASCORBIC ACID 500 MG TABLET (FP) PO SCH (12:46)
[2024-04-10 07:03] VITALS: RESP 18
[2024-04-10] MEDS: ASCORBIC ACID 500 MG/5 ML UNIT DOSE CUP PEG SCH (10:02)
[2024-04-10] MEDS: MULTIVIT-MINERALS ORAL LIQUID PEG SCH (10:07)
[2024-04-10] MEDS: MIDODRINE HCL 2.5 MG TABLET PEG SCH (10:23)
[2024-04-10] MEDS: DOXAZOSIN MESYLATE 4 MG TABLET GT SCH (10:23)
[2024-04-10] MEDS: FAMOTIDINE 20 MG/2.5 ML ORAL LIQUID PEG SCH (12:09)
[2024-04-11 06:40] VITALS: TEMP 97.7
[2024-04-11 10:21] VITALS: BP 134/82; PULSE 60
== END 2024-04-11 10:27 | DRG 871 ==
LOC: JER 14:38 → JERBED 17:07 → JICU 22:55 → J2W 03-23 23:19 → J7W 04-07 20:05
PROVIDERS: ADMIT Internal Medicine Pulmonary Disease
PROC: 0D20XUZ Change Feeding Device in Upper Intestinal Tract, External Approach (ICD-10-PCS; principal; 2024-04-07)
PROC: 05HM33Z Insertion of Infusion Device into Right Internal Jugular Vein, Percutaneous Approach (ICD-10-PCS; 2024-04-07)
DX: A41.50 Gram-negative sepsis, unspecified (principal); J69.0 Pneumonitis due to inhalation of food and vomit; R65.21 Severe sepsis with septic shock; J96.11 Chronic respiratory failure with hypoxia; J96.12 Chronic respiratory failure with hypercapnia; F73 Profound intellectual disabilities; I24.89 Other forms of acute ischemic heart disease; G82.20 Paraplegia, unspecified; Q67.5 Congenital deformity of spine; T85.598A Other mechanical complication of other gastrointestinal prosthetic devices, implants and grafts, initial encounter; K59.00 Constipation, unspecified; R00.1 Bradycardia, unspecified; R68.0 Hypothermia, not associated with low environmental temperature; G40.909 Epilepsy, unspecified, not intractable, without status epilepticus; R33.9 Retention of urine, unspecified; Q02 Microcephaly; D69.6 Thrombocytopenia, unspecified; Z93.1 Gastrostomy status; Z93.0 Tracheostomy status; Y83.8 Other surgical procedures as the cause of abnormal reaction of the patient, or of later complication, without mention of misadventure at the time of the procedure
CPT/HCPCS: 0241U-QW; 36415; 36600; 71045-TC-FY; 74018-TC-FY; 76705-TC; 80048; 80053; 81003; 82150; 82308; 82533; 82550; 82570; 82803; 82962; 83036; 83605; 83690; 83735; 83880; 84100; 84300; 84436; 84439; 84443; 84484; 85025; 85027; 85384; 85610; 85730; 86850; 86900; 86901; 87040; 87070; 87081; 87086; 87186; 87205; 87481; 87633; 87899; 93005; 93010; 93306-TC; 94640; 99291; J0475

== ENCOUNTER 2024-10-08 06:27 | Inpatient (IN) | payer OTHER ==
[2024-10-08 08:09] LABS: ABSOLUTE IMMATURE GRANULOCYTES 0.03 x10^3/uL (0.0-0.031); BASOPHILS # 0.02 x10^3/uL (0.01-0.08); EOSINOPHIL % 5.2 % (0.8-7.0); EOSINOPHILS # 0.41 x10^3/uL (0.04-0.54); HEMATOCRIT 26.2 % (40.1-51.0); HEMOGLOBIN 8.6 g/dL (13.7-17.5); MCHC 32.8 g/dl (32.3-36.5); MEAN CELL VOLUME 97.4 fl (79.0-92.2); MEAN PLT VOLUME 10.5 fl (9.4-12.4); MONOCYTE # 0.73 x10^3/uL (0.30-0.82); MONOCYTE % 9.2 % (5.3-12.2); PLATELET COUNT 284 x10^3/uL (163-337); RDW 15.4 % (12.2-16.1)
[2024-10-08 08:11] LABS: VENOUS BASE EXCESS 11.9 mmol/L (-2-2); VENOUS O2 SATURATION 98.9 % (70-80); VENOUS PH 7.482 (7.310-7.410)
[2024-10-08 08:19] LABS: ALBUMIN 2.8 g/dl (3.4-5.0); BLOOD UREA NITROGEN 13.5 mg/dL (7-18); CALCIUM 9.2 mg/dL (8.5-10.1); MAGNESIUM 2.1 mg/dL (1.8-2.4)
[2024-10-08 08:22] LABS: CREATININE 0.4 mg/dL (0.55-1.3)
[2024-10-08 08:24] LABS: BILIRUBIN,TOTAL 0.4 mg/dL (0.2-1); TOT PROT 6.5 g/dl (6.4-8.2)
[2024-10-08 08:35] LABS: EPI CELLS 1 /uL (0-25.1); HYALINE CASTS 2 /uL (0-3.1); URINE APPEARANCE CLOUDY; URINE BACTERIA 292 /uL (0-1359); URINE BILIRUBIN NEGATIVE (NEGATIVE); URINE COLOR YELLOW; URINE GLUCOSE (UA) NEGATIVE (NEGATIVE); URINE KETONE NEGATIVE (NEGATIVE); URINE LEUK ESTERASE 3+ (NEGATIVE); URINE NITRITE NEGATIVE (NEGATIVE); URINE PROTEIN NEGATIVE (NEGATIVE); URINE RBC 15 /uL (0-23.9); URINE WBC 649 /uL (0-25.8)
[2024-10-08] MEDS ORDERED: PIPERACILLIN/TAZOB 3.375 GM 3.375 GM/50 ML BAG IVPB ONE (08:39)
[2024-10-08] MEDS ORDERED: VANCOMYCIN/WATER 1250 MG 1,250 MG/250 ML BAG IVPB ONE (08:39)
[2024-10-08] MEDS: PIPERACILLIN/TAZOB 3.375 GM 3.375 GM in DEXTROSE 5%-WATER - 50 ML IVPB ONE (08:45)
[2024-10-08] MEDS: SODIUM CHLORIDE 0.9% 500 ML INFUS.BAG IV ONE (08:45)
[2024-10-08] MEDS ORDERED: ACETAMINOPHEN INJECTION 100 ML ONE (08:52)
[2024-10-08] MEDS: ACETAMINOPHEN 1000 MG/100 ML BAG IVPB ONE (09:13)
[2024-10-08] MEDS: VANCOMYCIN/WATER 1250 MG 1,250 MG/250 ML BAG IVPB ONE (09:41)
[2024-10-08 09:57] LABS: INR 1.09 (0.83-1.09); PROTHROMBIN TIME (PATIENT) 11.9 SEC (9.7-13.0)
[2024-10-08 09:59] LABS: ACTIVATED PTT 33.1 SECONDS (25.2-36.5)
[2024-10-08] MEDS ORDERED: BISACODYL 10 MG SUPP.RECT PR PRN (11:14)
[2024-10-08] MEDS ORDERED: MIDAZOLAM HCL 5 MG/1 ML Single Dose Vial IVPUSH PRN (11:19)
[2024-10-08] MEDS ORDERED: SCOPOLAMINE HYDROBROMIDE 1 PATCH PATCH.TD72 ONE (11:27)
[2024-10-08] MEDS ORDERED: LORazepam 4 MG/1 ML VIAL IVPUSH PRN (13:19)
[2024-10-08] MEDS: ALBUTEROL SO4 2.5/IPRATROPIUM 0.5 INH SOL 3 ML VIAL.NEB. NEB ONE (14:20)
[2024-10-08] MEDS: BACLOFEN 10 MG TABLET (FP) PEG SCH (15:12)
[2024-10-08] MEDS: SIMETHICONE 40 MG/0.6 ML BOTTLE GT SCH (17:54)
[2024-10-08] MEDS ORDERED: ACETYLCYSTEINE 20% 200MG/ML 4 ML VIAL *FOR ORAL / INH USE ONLY ONE (18:13)
[2024-10-08] MEDS ORDERED: ALBUTEROL SO4 0.083% IH SOL 2.5 MG/3 ML VIAL.NEB. NEB ONE (18:13)
[2024-10-08] MEDS: methylPREDNISolone NA SUCC 40 MG/1 ML VIAL IVPUSH ONE ×2 (18:22→23:53)
[2024-10-08] MEDS: ACETYLCYSTEINE 20% 200MG/ML 30 ML VIAL *FOR ORAL / INH USE ONLY NEB ONE (19:14)
[2024-10-08] MEDS: ALBUTEROL SO4 0.083% IH SOL 2.5 MG/3 ML VIAL.NEB. NEB ONE (19:14)
[2024-10-08] MEDS: BUDESONIDE 0.25 MG/2ML INH SUSP VIAL NEB SCH (20:19)
[2024-10-08] MEDS: ALBUTEROL SO4 2.5/IPRATROPIUM 0.5 INH SOL 3 ML VIAL.NEB. NEB SCH (20:19)
[2024-10-08] MEDS: PIPERACILLIN/TAZOB 3.375 GM 3.375 GM in DEXTROSE 5%-WATER - 50 ML IVPB SCH (21:50)
[2024-10-08] MEDS: POLYETHYLENE GLYCOL (HEALTHYLAX) 3350 17 GM PACKET GT SCH (21:51)
[2024-10-08] MEDS: MIDODRINE HCL 2.5 MG TABLET PO SCH (21:51)
[2024-10-08] MEDS: SENNOSIDES 8.8 MG/5 ML SYRUP GT SCH (21:51)
[2024-10-08] MEDS: BACITRACIN ZINC 15 GM TUBE TOPICAL OINTMENT TP SCH (21:56)
[2024-10-09] MEDS: MINERAL OIL/PET HY-PHL TOPICAL OINTMENT 454 GM JAR TP SCH
[2024-10-09 08:15] LABS: MCHC 32.3 g/dl (32.3-36.5); MEAN CELL VOLUME 97.2 fl (79.0-92.2); MEAN PLT VOLUME 10.5 fl (9.4-12.4); PLATELET COUNT 323 x10^3/uL (163-337)
[2024-10-09 08:24] LABS: POTASSIUM 4.1 mmol/L (3.5-5.1)
[2024-10-09 08:27] LABS: ALBUMIN 3.2 g/dl (3.4-5.0); BLOOD UREA NITROGEN 10.2 mg/dL (7-18); CALCIUM 9.7 mg/dL (8.5-10.1); MAGNESIUM 2.3 mg/dL (1.8-2.4)
[2024-10-09 08:30] LABS: CREATININE 0.7 mg/dL (0.55-1.3)
[2024-10-09 08:31] LABS: BILIRUBIN,TOTAL 0.5 mg/dL (0.2-1); PHOSPHOROUS 2.4 mg/dL (2.5-4.9); TOT PROT 7.9 g/dl (6.4-8.2)
[2024-10-09] MEDS ORDERED: ENOXAPARIN NA (PORCINE) 40 MG/0.4 ML DISP.SYRIN SQ SCH (10:00)
[2024-10-09] MEDS ORDERED: PIPERACILLIN/TAZOB 3.375 GM 3.375 GM in DEXTROSE 5%-WATER - 50 ML IVPB SCH (10:00)
[2024-10-09] MEDS: DOXAZOSIN MESYLATE 4 MG TABLET GT SCH (10:27)
[2024-10-09] MEDS: SCOPOLAMINE HYDROBROMIDE 1 PATCH PATCH.TD72 TP SCH (10:27)
[2024-10-09] MEDS: ENOXAPARIN NA (PORCINE) 30 MG/0.3 ML DISP.SYRIN SQ SCH (10:27)
[2024-10-09] MEDS: PIPERACILLIN/TAZOB 3.375 GM 3.375 GM in DEXTROSE 5%-WATER - 50 ML IVPB SCH (10:28)
[2024-10-09] MEDS: methylPREDNISolone NA SUCC 40 MG/1 ML VIAL IVPUSH SCH (10:28)
[2024-10-09] MEDS: VANCOMYCIN 1 GM PREMIX (F) 1 GM/200 ML BAG IVPB ONE (13:48)
[2024-10-09] MEDS: SODIUM PHOSPHATE - 15 MM in SODIUM CHLORIDE 250 ML IVPB ONE (15:34)
[2024-10-09 15:40] VITALS: BMI 22.5
[2024-10-09] MEDS: ALBUTEROL SO4 2.5/IPRATROPIUM 0.5 INH SOL 3 ML VIAL.NEB. NEB SCH (16:53)
[2024-10-09] MEDS: IOHEXOL (OMNIPAQUE IV) 350 MG/ML - 100 ML BOTTLE NGT ONE (16:59)
[2024-10-10] MEDS: PIPERACILLIN/TAZOB 2.25 GM 2.25 GM in DEXTROSE 5%-WATER - 50 ML IVPB SCH (02:30)
[2024-10-10 08:34] LABS: HEMOGLOBIN 10.6 g/dL (13.7-17.5); MCHC 32.1 g/dl (32.3-36.5); MEAN CELL VOLUME 97.3 fl (79.0-92.2); MEAN PLT VOLUME 10.3 fl (9.4-12.4); PLATELET COUNT 303 x10^3/uL (163-337)
[2024-10-10 09:15] LABS: POTASSIUM 3.4 mmol/L (3.5-5.1)
[2024-10-10 09:16] LABS: BLOOD UREA NITROGEN 13.1 mg/dL (7-18)
[2024-10-10 09:19] LABS: CALCIUM 9.7 mg/dL (8.5-10.1)
[2024-10-10 09:20] LABS: CREATININE 0.7 mg/dL (0.55-1.3); PHOSPHOROUS 2.5 mg/dL (2.5-4.9)
[2024-10-10 10:13] LABS: MAGNESIUM 2.3 mg/dL (1.8-2.4)
[2024-10-10] MEDS: POTASSIUM CHLORIDE ORAL LIQUID 20 MEQ/15 ML GT ONE (10:24)
[2024-10-10] MEDS: PIPERACILLIN/TAZOB 3.375 GM 3.375 GM in DEXTROSE 5%-WATER - 50 ML IVPB SCH (12:16)
[2024-10-10] MEDS: VANCOMYCIN/WATER FOR INJ (PEG) 750 MG/150 ML BAG IVPB SCH (13:12)
[2024-10-11 08:35] LABS: ABSOLUTE IMMATURE GRANULOCYTES 0.02 x10^3/uL (0.0-0.031); BASOPHILS # 0.01 x10^3/uL (0.01-0.08); EOSINOPHIL % 0.1 % (0.8-7.0); EOSINOPHILS # 0.01 x10^3/uL (0.04-0.54); HEMOGLOBIN 10.1 g/dL (13.7-17.5); MEAN CELL VOLUME 98.1 fl (79.0-92.2)
[2024-10-11 08:37] LABS: HEMATOCRIT 31.6 % (40.1-51.0); MONOCYTE # 0.99 x10^3/uL (0.30-0.82); RDW 15.3 % (12.2-16.1)
[2024-10-11 08:44] LABS: POTASSIUM 3.9 mmol/L (3.5-5.1)
[2024-10-11 09:14] LABS: CALCIUM 10.1 mg/dL (8.5-10.1)
[2024-10-11 09:15] LABS: BLOOD UREA NITROGEN 14.4 mg/dL (7-18)
[2024-10-11 09:18] LABS: CREATININE 0.6 mg/dL (0.55-1.3)
[2024-10-11] MEDS: BISACODYL 10 MG SUPP.RECT PR ONE (09:58)
[2024-10-11] MEDS: PANTOPRAZOLE SODIUM 40 MG VIAL IVPUSH SCH (09:59)
[2024-10-11] MEDS: methylPREDNISolone NA SUCC 40 MG/1 ML VIAL IVPUSH SCH (09:59)
[2024-10-11 10:27] LABS: PLATELET COUNT 241 x10^3/uL (163-337)
[2024-10-12 08:42] LABS: ABSOLUTE IMMATURE GRANULOCYTES 0.03 x10^3/uL (0.0-0.031); BASOPHILS # 0.01 x10^3/uL (0.01-0.08); EOSINOPHIL % 0.1 % (0.8-7.0); EOSINOPHILS # 0.01 x10^3/uL (0.04-0.54); HEMATOCRIT 29.8 % (40.1-51.0); HEMOGLOBIN 9.6 g/dL (13.7-17.5); MCHC 32.2 g/dl (32.3-36.5); MEAN CELL VOLUME 97.1 fl (79.0-92.2); MEAN PLT VOLUME 10.6 fl (9.4-12.4); MONOCYTE # 0.96 x10^3/uL (0.30-0.82); MONOCYTE % 11.7 % (5.3-12.2); PLATELET COUNT 265 x10^3/uL (163-337); RDW 15.1 % (12.2-16.1)
[2024-10-12 09:01] LABS: CHLORIDE 100 mmol/L (98-107); SODIUM 138 mmol/L (136-145)
[2024-10-12 09:14] LABS: ALBUMIN 3.1 g/dl (3.4-5.0); CALCIUM 9.3 mg/dL (8.5-10.1)
[2024-10-12 09:15] LABS: BLOOD UREA NITROGEN 13.2 mg/dL (7-18); CO2 29 mmol/L (21-32); GLUCOSE,RANDOM 90 mg/dL (74-106); MAGNESIUM 1.9 mg/dL (1.8-2.4)
[2024-10-12 09:17] LABS: SGOT/AST 27 U/L (15-37); SGPT/ALT 39 U/L (13-61)
[2024-10-12 09:18] LABS: CREATININE 0.6 mg/dL (0.55-1.3); PHOSPHOROUS 1.8 mg/dL (2.5-4.9)
[2024-10-12 09:19] LABS: BILIRUBIN,TOTAL 0.5 mg/dL (0.2-1); TOT PROT 7.3 g/dl (6.4-8.2)
[2024-10-12 09:20] LABS: ALK PHOS 124 U/L (45-117)
[2024-10-12 09:32] LABS: ANION GAP 9 mmol/L (4-13); POTASSIUM 2.9 mmol/L (3.5-5.1)
[2024-10-12] MEDS: predniSONE 5 MG/5 ML ORAL SOLN- UNIT-DOSE CUP GT SCH (10:24)
[2024-10-12] MEDS: POTASSIUM CHLORIDE ORAL LIQUID 20 MEQ/15 ML PO ONE (13:16)
[2024-10-12] MEDS: KCL 10 MEQ IVPB 10 MEQ/100 ML INFUS.BAG IVPB SCH (13:16)
[2024-10-12] MEDS: NAPH,MB-DB/K PH,MBDB POWDER PACKET PO ONE (13:58)
[2024-10-12] MEDS ORDERED: PIPERACILLIN/TAZOBACTAM 2.25 GM VIAL IVPB ONE (17:29)
[2024-10-13 08:28] LABS: ABSOLUTE IMMATURE GRANULOCYTES 0.01 x10^3/uL (0.0-0.031); BASOPHILS # 0.01 x10^3/uL (0.01-0.08); EOSINOPHIL % 0.3 % (0.8-7.0); EOSINOPHILS # 0.02 x10^3/uL (0.04-0.54); HEMATOCRIT 28.3 % (40.1-51.0); HEMOGLOBIN 9.3 g/dL (13.7-17.5); MCHC 32.9 g/dl (32.3-36.5); MEAN CELL VOLUME 96.9 fl (79.0-92.2); MEAN PLT VOLUME 10.4 fl (9.4-12.4); MONOCYTE % 11.2 % (5.3-12.2); PLATELET COUNT 227 x10^3/uL (163-337); RDW 14.8 % (12.2-16.1)
[2024-10-13 08:46] LABS: POTASSIUM 3.4 mmol/L (3.5-5.1)
[2024-10-13 08:48] LABS: CALCIUM 9.2 mg/dL (8.5-10.1)
[2024-10-13 08:49] LABS: BLOOD UREA NITROGEN 8.9 mg/dL (7-18); MAGNESIUM 1.9 mg/dL (1.8-2.4)
[2024-10-13 08:52] LABS: CREATININE 0.5 mg/dL (0.55-1.3); PHOSPHOROUS 2.5 mg/dL (2.5-4.9)
[2024-10-13] MEDS: predniSONE 20 MG TABLET (UD) GT SCH (10:02)
[2024-10-13] MEDS: POTASSIUM CHLORIDE ORAL LIQUID 20 MEQ/15 ML GT ONE (21:37)
[2024-10-14 09:39] LABS: HEMATOCRIT 27.1 % (40.1-51.0); MCHC 33.2 g/dl (32.3-36.5); MEAN CELL VOLUME 96.1 fl (79.0-92.2); MEAN PLT VOLUME 10.5 fl (9.4-12.4); PLATELET COUNT 226 x10^3/uL (163-337); RDW 14.7 % (12.2-16.1)
[2024-10-14 10:11] LABS: POTASSIUM 3.5 mmol/L (3.5-5.1)
[2024-10-14 10:12] LABS: CALCIUM 9.3 mg/dL (8.5-10.1)
[2024-10-14 10:13] LABS: BLOOD UREA NITROGEN 11.4 mg/dL (7-18)
[2024-10-14 10:16] LABS: CREATININE 0.5 mg/dL (0.55-1.3)
[2024-10-14] MEDS: FAMOTIDINE 20 MG/2.5 ML ORAL LIQUID GT SCH (13:42)
[2024-10-14] MEDS: AMOX TR/POTASSIUM CLAVULANATE 400 MG/5 ML BOTTLE GT SCH (13:43)
[2024-10-14] MEDS: POTASSIUM CHLORIDE ORAL LIQUID 20 MEQ/15 ML GT SCH (15:34)
[2024-10-16 14:28] VITALS: BP 109/67; RESP 24; TEMP 98.2
[2024-10-16 15:50] VITALS: PULSE 79
== END 2024-10-16 16:36 | disposition home or self-care (01) | DRG 154 ==
LOC: JER 06:27 → INTOOBSV 08:38 → JERBED 08:38 → UNDOADMOB 08:38 → JERBED 11:12 → J5S 13:32 → OBSVTOIN 14:04
PROVIDERS: ADMIT Student in an Organized Health Care Education/Training Program; ATTEND Internal Medicine
PROC: 0D20XUZ Change Feeding Device in Upper Intestinal Tract, External Approach (ICD-10-PCS; principal; 2024-10-09)
PROC: 0B21XFZ Change Tracheostomy Device in Trachea, External Approach (ICD-10-PCS; 2024-10-16)
DX: T17.290A Other foreign object in pharynx causing asphyxiation, initial encounter (principal); J96.21 Acute and chronic respiratory failure with hypoxia; R53.2 Functional quadriplegia; K94.23 Gastrostomy malfunction; Q02 Microcephaly; T68.XXXA Hypothermia, initial encounter; G40.909 Epilepsy, unspecified, not intractable, without status epilepticus; G80.9 Cerebral palsy, unspecified; F79 Unspecified intellectual disabilities; R33.9 Retention of urine, unspecified; K59.00 Constipation, unspecified; T75.89XA Other specified effects of external causes, initial encounter; X58.XXXA Exposure to other specified factors, initial encounter; Y93.9 Activity, unspecified; Y92.89 Other specified places as the place of occurrence of the external cause; Y99.9 Unspecified external cause status
CPT/HCPCS: 0241U-QW; 36415; 71045-TC-FY; 74018-TC-FY; 80048; 80053; 81003; 82803; 82962; 83605; 83735; 84100; 84484; 85025; 85027; 85610; 85730; 86850; 86900; 86901; 87040; 87070; 87081; 87086; 87205; 87481; 87635; 87899; 93005; 93010; 94640; 99284-25; 99285-25; G0378; J0475

== ENCOUNTER 2024-11-01 17:28 | Inpatient (IN) | payer OTHER ==
[2024-11-01 18:46] VITALS: BMI 22.5
[2024-11-01 20:06] LABS: ABSOLUTE IMMATURE GRANULOCYTES 0.02 x10^3/uL (0.0-0.031); BASOPHILS # 0.03 x10^3/uL (0.01-0.08); EOSINOPHIL % 2.0 % (0.8-7.0); EOSINOPHILS # 0.08 x10^3/uL (0.04-0.54); MCHC 32.5 g/dl (32.3-36.5); MEAN CELL VOLUME 93.0 fl (79.0-92.2); MEAN PLT VOLUME 9.3 fl (9.4-12.4); MONOCYTE # 0.48 x10^3/uL (0.30-0.82); MONOCYTE % 12.0 % (5.3-12.2); RDW 14.2 % (12.2-16.1)
[2024-11-01 20:17] LABS: INR 1.06 (0.83-1.09); PROTHROMBIN TIME (PATIENT) 11.6 SEC (9.7-13.0)
[2024-11-01 20:19] LABS: ACTIVATED PTT 33.5 SECONDS (25.2-36.5)
[2024-11-01 20:32] LABS: CO2 32.0 mmol/L (21-32); GLUCOSE,RANDOM 88.0 mg/dL (74-106)
[2024-11-01 20:35] LABS: CREATININE 0.3 mg/dL (0.55-1.3); SGOT/AST 34.0 U/L (15-37); SGPT/ALT 35.0 U/L (13-61)
[2024-11-01 20:37] LABS: TOT PROT 6.5 g/dl (6.4-8.2)
[2024-11-01 20:38] LABS: ALK PHOS 149.0 U/L (45-117)
[2024-11-01 21:24] LABS: HCV DIAGNOSTIC IN-HOUSE W/RFLX NON-REACTIVE (NONREACTIVE)
[2024-11-01 21:28] LABS: HIV INTERPRETATION NEGATIVE (NEGATIVE)
[2024-11-01] MEDS: POTASSIUM CHLORIDE ORAL LIQUID 20 MEQ/15 ML PEG ONE (23:32)
[2024-11-01] MEDS ORDERED: PATIENT'S OWN MEDICATION (NON-FORMULARY) (Midazolam [Nayzilam] 5 MG/0.1 ML Spray) NS PRN (23:55)
[2024-11-02] MEDS: ACYCLOVIR IVPB SCH (02:20)
[2024-11-02] MEDS: WATER IVPB SCH (02:20)
[2024-11-02] MEDS: DEXTROSE 5% IVPB SCH (02:20)
[2024-11-02] MEDS ORDERED: SIMETHICONE 80 MG TAB.CHEW (FP) ONE ×2 (04:46→14:08)
[2024-11-02] MEDS ORDERED: BACLOFEN 10 MG TABLET (FP) ONE ×2 (04:46→14:07)
[2024-11-02] MEDS: BACLOFEN 10 MG TABLET (FP) PEG SCH (05:16)
[2024-11-02] MEDS: SIMETHICONE 40 MG/0.6 ML BOTTLE GT SCH (05:16)
[2024-11-02 06:25] LABS: ABSOLUTE IMMATURE GRANULOCYTES 0.03 x10^3/uL (0.0-0.031); BASOPHILS # 0.02 x10^3/uL (0.01-0.08); EOSINOPHIL % 1.7 % (0.8-7.0); EOSINOPHILS # 0.09 x10^3/uL (0.04-0.54); MCHC 32.7 g/dl (32.3-36.5); MEAN CELL VOLUME 93.3 fl (79.0-92.2); MEAN PLT VOLUME 9.2 fl (9.4-12.4); MONOCYTE # 0.49 x10^3/uL (0.30-0.82); MONOCYTE % 9.2 % (5.3-12.2); RDW 14.2 % (12.2-16.1)
[2024-11-02 06:57] LABS: CO2 30.0 mmol/L (21-32); GLUCOSE,RANDOM 95.0 mg/dL (74-106)
[2024-11-02 06:59] LABS: SGPT/ALT 38.0 U/L (13-61)
[2024-11-02 07:00] LABS: CREATININE 0.4 mg/dL (0.55-1.3); SGOT/AST 37.0 U/L (15-37)
[2024-11-02 07:01] LABS: TOT PROT 7.1 g/dl (6.4-8.2)
[2024-11-02 07:02] LABS: ALK PHOS 166.0 U/L (45-117)
[2024-11-02] MEDS ORDERED: ALBUTEROL SO4 2.5/IPRATROPIUM 0.5 INH SOL 3 ML VIAL.NEB. NEB ONE (08:53)
[2024-11-02] MEDS ORDERED: POLYETHYLENE GLYCOL (HEALTHYLAX) 3350 17 GM PACKET ONE (08:53)
[2024-11-02] MEDS ORDERED: MIDODRINE HCL 5 MG TABLET ONE (08:53)
[2024-11-02] MEDS ORDERED: ENOXAPARIN NA (PORCINE) 40 MG/0.4 ML DISP.SYRIN SQ ONE (08:54)
[2024-11-02] MEDS: MIDODRINE HCL 2.5 MG TABLET PEG SCH (09:08)
[2024-11-02] MEDS ORDERED: MIDODRINE HCL 2.5 MG TABLET PO SCH (10:00)
[2024-11-02] MEDS: ENOXAPARIN NA (PORCINE) 40 MG/0.4 ML DISP.SYRIN SQ SCH (10:13)
[2024-11-02] MEDS: POLYETHYLENE GLYCOL (HEALTHYLAX) 3350 17 GM PACKET GT SCH (10:13)
[2024-11-02] MEDS: ALBUTEROL SO4 2.5/IPRATROPIUM 0.5 INH SOL 3 ML VIAL.NEB. NEB SCH (10:13)
[2024-11-02] MEDS: DOXAZOSIN MESYLATE 4 MG TABLET GT SCH (10:13)
[2024-11-02] MEDS: BUDESONIDE 0.25 MG/2ML INH SUSP VIAL NEB SCH (12:14)
[2024-11-02] MEDS: SODIUM CHLORIDE 1,000 ML IV SCH (18:42)
[2024-11-02] MEDS: SENNOSIDES 8.8 MG/5 ML SYRUP GT SCH (21:48)
[2024-11-02] MEDS: CHOLECALCIFEROL (VIT D3) 1,000 UNIT (25 MCG) TABLET GT SCH (21:48)
[2024-11-03] MEDS: MINERAL OIL/PET HY-PHL TOPICAL OINTMENT 454 GM JAR TP SCH (17:27)
[2024-11-03] MEDS: levETIRAcetam 500 MG/5 ML ORAL SOLUTION (UNIT-DOSE CUPS) PO SCH (22:28)
[2024-11-05] MEDS: CALMINE 3% & PRAMOXINE 1% (AVEENO ANTI-ITCH) BOTTLE TP SCH (13:28)
[2024-11-05 15:50] LABS: MCHC 32.6 g/dl (32.3-36.5); MEAN CELL VOLUME 93.1 fl (79.0-92.2); MEAN PLT VOLUME 9.6 fl (9.4-12.4); RDW 14.5 % (12.2-16.1)
[2024-11-05 15:57] VITALS: RESP 18
[2024-11-05 16:03] LABS: CO2 30.0 mmol/L (21-32); GLUCOSE,RANDOM 108.0 mg/dL (74-106)
[2024-11-05 16:06] LABS: CREATININE 0.5 mg/dL (0.55-1.3); SGPT/ALT 47.0 U/L (13-61)
[2024-11-05 16:07] LABS: SGOT/AST 61.0 U/L (15-37)
[2024-11-05 16:08] LABS: TOT PROT 7.1 g/dl (6.4-8.2)
[2024-11-05 16:09] LABS: ALK PHOS 138.0 U/L (45-117)
[2024-11-05] MEDS: SODIUM CHLORIDE 1,000 ML IV SCH (18:32)
[2024-11-06 08:04] LABS: MCHC 32.3 g/dl (32.3-36.5); MEAN CELL VOLUME 93.5 fl (79.0-92.2); MEAN PLT VOLUME 9.8 fl (9.4-12.4); RDW 14.3 % (12.2-16.1)
[2024-11-06 08:29] LABS: CO2 29.0 mmol/L (21-32); GLUCOSE,RANDOM 113.0 mg/dL (74-106)
[2024-11-06 08:32] LABS: CREATININE 0.6 mg/dL (0.55-1.3); SGOT/AST 63.0 U/L (15-37); SGPT/ALT 53.0 U/L (13-61)
[2024-11-06 08:34] LABS: ALK PHOS 153.0 U/L (45-117); TOT PROT 7.9 g/dl (6.4-8.2)
[2024-11-06] MEDS ORDERED: PATIENT'S OWN MEDICATION (NON-FORMULARY) (Linaclotide 145 MCG Capsule) PEG SCH (13:00)
[2024-11-06] MEDS: PATIENT'S OWN MEDICATION (NON-FORMULARY) (Linaclotide 145 MCG Capsule) PEG SCH (13:57)
[2024-11-06] MEDS ORDERED: LORazepam 4 MG/1 ML VIAL IVPUSH PRN (17:16)
[2024-11-06] MEDS: SCOPOLAMINE HYDROBROMIDE 1 PATCH PATCH.TD72 TD SCH (20:59)
[2024-11-06] MEDS: DOXAZOSIN MESYLATE 4 MG TABLET GT SCH (21:25)
[2024-11-06] MEDS: levETIRAcetam 500 MG/5 ML ORAL SOLUTION (UNIT-DOSE CUPS) PEG SCH (21:25)
[2024-11-07 09:01] LABS: ABSOLUTE IMMATURE GRANULOCYTES 0.03 x10^3/uL (0.0-0.031); BASOPHILS # 0.03 x10^3/uL (0.01-0.08); EOSINOPHIL % 2.8 % (0.8-7.0); EOSINOPHILS # 0.13 x10^3/uL (0.04-0.54); MCHC 31.9 g/dl (32.3-36.5); MEAN CELL VOLUME 94.8 fl (79.0-92.2); MEAN PLT VOLUME 9.6 fl (9.4-12.4); MONOCYTE # 0.65 x10^3/uL (0.30-0.82); MONOCYTE % 13.8 % (5.3-12.2); RDW 14.2 % (12.2-16.1)
[2024-11-07 09:38] LABS: CO2 30.0 mmol/L (21-32)
[2024-11-07 09:39] LABS: GLUCOSE,RANDOM 127.0 mg/dL (74-106)
[2024-11-07 09:41] LABS: SGOT/AST 57.0 U/L (15-37); SGPT/ALT 43.0 U/L (13-61)
[2024-11-07 09:42] LABS: CREATININE 0.5 mg/dL (0.55-1.3)
[2024-11-07 09:43] LABS: TOT PROT 6.8 g/dl (6.4-8.2)
[2024-11-07 09:45] LABS: ALK PHOS 114.0 U/L (45-117)
[2024-11-07] MEDS: POTASSIUM CHLORIDE ORAL LIQUID 20 MEQ/15 ML GT ONE (12:25)
[2024-11-08 08:56] LABS: ABSOLUTE IMMATURE GRANULOCYTES 0.02 x10^3/uL (0.0-0.031); BASOPHILS # 0.03 x10^3/uL (0.01-0.08); EOSINOPHIL % 4.0 % (0.8-7.0); EOSINOPHILS # 0.20 x10^3/uL (0.04-0.54); MCHC 32.3 g/dl (32.3-36.5); MEAN CELL VOLUME 94.4 fl (79.0-92.2); MEAN PLT VOLUME 9.8 fl (9.4-12.4); MONOCYTE # 0.59 x10^3/uL (0.30-0.82); MONOCYTE % 11.9 % (5.3-12.2); RDW 14.6 % (12.2-16.1)
[2024-11-08 09:46] LABS: CO2 30.0 mmol/L (21-32); GLUCOSE,RANDOM 109.0 mg/dL (74-106)
[2024-11-08 09:49] LABS: CREATININE 0.5 mg/dL (0.55-1.3); SGOT/AST 40.0 U/L (15-37); SGPT/ALT 42.0 U/L (13-61)
[2024-11-08 09:50] LABS: TOT PROT 6.8 g/dl (6.4-8.2)
[2024-11-08 09:52] LABS: ALK PHOS 123.0 U/L (45-117)
[2024-11-08] MEDS ORDERED: BUDESONIDE 0.25 MG/2ML INH SUSP VIAL NEB ONE (12:38)
[2024-11-09 08:50] LABS: MCHC 32.1 g/dl (32.3-36.5); MEAN CELL VOLUME 95.2 fl (79.0-92.2); MEAN PLT VOLUME 9.9 fl (9.4-12.4); RDW 14.6 % (12.2-16.1)
[2024-11-09 09:31] LABS: CO2 29.0 mmol/L (21-32); GLUCOSE,RANDOM 95.0 mg/dL (74-106)
[2024-11-09 09:34] LABS: CREATININE 0.5 mg/dL (0.55-1.3); SGOT/AST 31.0 U/L (15-37); SGPT/ALT 38.0 U/L (13-61)
[2024-11-09 09:36] LABS: TOT PROT 6.7 g/dl (6.4-8.2)
[2024-11-09 09:37] LABS: ALK PHOS 110.0 U/L (45-117)
[2024-11-10] MEDS: valACYclovir HCL 500 MG TABLET (FP) GT SCH (09:29)
[2024-11-10 13:50] VITALS: BP 110/67; PULSE 94; TEMP 98
== END 2024-11-10 11:42 | disposition home or self-care (01) | DRG 865 ==
LOC: JER 17:28 → JERBED 20:37 → J8W 11-02 15:20
PROVIDERS: ADMIT Hospitalist; ATTEND Nurse Practitioner Acute Care
DX: B02.7 Disseminated zoster (principal); J96.21 Acute and chronic respiratory failure with hypoxia; F79 Unspecified intellectual disabilities; Q02 Microcephaly; G40.909 Epilepsy, unspecified, not intractable, without status epilepticus; E87.6 Hypokalemia; G80.8 Other cerebral palsy; Z93.1 Gastrostomy status; N31.9 Neuromuscular dysfunction of bladder, unspecified
CPT/HCPCS: 36415; 80053; 80177; 83735; 84100; 85025; 85610; 85730; 86803; 87389; 87481; 87637-QW; 94640; 99285-25; J0475